=== PATIENT | male | born 1940 | race Caucasian/White ===

== ENCOUNTER 2018-05-17 18:03 | Inpatient (IN) ==
[2018-05-17] MEDS ORDERED: ASPIRIN CHEW 324 MG PO STA (18:14)
--- NOTE | 2018-05-17 18:39 | XRay Report ---
XR chest 1V portable CLINICAL HISTORY: Atypical chest pain COMPARISON STUDY: 03/01/2018 FINDINGS: The heart is enlarged. There are postsurgical changes of a midline sternotomy and valvular replacement. There is diffuse elevation of the interstitium, a finding consistent with mild congestiv e failure/fluid overload. There is no lobar consolidation.[ IMPRESSION: Cardiomegaly and radiographic evidence of mild chronic congestive failure/fluid overload. No evidence of lobar consolidation Electronically signed by: Jaylon Alvarez M.D. 05/17/2018 6:38 PM
[2018-05-17 18:42] LABS: Basophils # (auto) 0.05 K/uL (0-0.2); Basophils % (auto) 0.3 %; Eosinophils # (auto) 0.03 K/uL (0-0.5); Eosinophils % (auto) 0.2 %; Hematocrit (blood only) 37.7 % (42-52); Hemoglobin 12.2 g/dL (14.0-18.0); Immature Granulocytes # (auto) 0.05 K/uL (0.00-0.02); Immature Granulocytes % (auto) 0.3 %; Lymphocytes # (auto) 0.62 K/uL (1.2-3.4); Lymphocytes % (auto) 3.1 %; Mean Corpuscular Hgb Conc 32.4 g/dL (32-36); Mean Corpuscular Volume 87.9 fL (80-100); Mean Platelet Volume 11.4 fL (7.4-10.4); Monocytes # (auto) 0.78 K/uL (0.11-0.59); Monocytes % (auto) 3.9 %; Neutrophils # (auto) 18.27 K/uL (1.4-6.5); Neutrophils % (auto) 92.2 %; Platelet Count 172 K/uL (130-400); RDW Standard Deviation 51.2 fL (36.4-46.3); Red Blood Count 4.29 M/uL (4.7-6.1)
[2018-05-17] MEDS ORDERED: ACETAMINOPHEN 1,000 MG/100 ML VIAL IV STA (18:46)
[2018-05-17 18:55] LABS: Alanine Aminotransferase 19 U/L (12-78); Albumin Level 3.3 gm/dl (3.4-5.0); Aspartate Aminotransferase 18 U/L (15-37); BUN Creatinine Ratio 10.4 (10-20); Blood Urea Nitrogen 24 mg/dl (7-18); Calcium 8.2 mg/dl (8.5-10.1); Carbon Dioxide 28 mmol/L (21-32); Chloride 105 mmol/L (98-107); Est GFR (African American) 31.1; Est GFR (Non-African American) 26.8; Glucose 271 mg/dl (70-99); Potassium 3.8 mmol/L (3.5-5.1); Sodium 140 mmol/L (136-145)
[2018-05-17 19:00] LABS: Albumin Globulin Ratio 0.7 (0.9-2); Alkaline Phosphatase 108 U/L (45-117); Bilirubin,Total 0.8 mg/dl (0.2-1); Globulin 4.8 gm/dl (2.5-4.0); NT Pro B Type Natriuretic Pept 1178 pg/ml (0-1800); Total Protein 8.1 gm/dl (6.4-8.2); Troponin I 0.038 ng/ml (0-0.045)
[2018-05-17 20:03] LABS: Partial Thromboplastin Ratio 1.5; Partial Thromboplastin Time 40.4 Seconds (21.0-31.0); Prothrombin Time 35.6 Seconds (9.0-12.0)
[2018-05-17 20:06] LABS: Base Excess VBG 2.8 mEq/L; pH VBG 7.36 (7.36-7.41)
[2018-05-17] MEDS ORDERED: FUROSEMIDE 40 MG/4 ML VIAL IV STA (20:15)
[2018-05-17 20:16] LABS: INR 3.8 (0.9-1.1)
[2018-05-17] MEDS ORDERED: XOPENEX/ATROVENT 1.25mg/0.5MG NEB COMBO NEB STA (20:31)
[2018-05-17] MEDS ORDERED: IPRATROPIUM BROMIDE NEB SOLN 0.02% 2.5 ML VIAL INH STA (20:31)
[2018-05-17 20:38] LABS: Magnesium 1.6 mg/dl (1.8-2.4)
[2018-05-17] MEDS ORDERED: LEVALBUTEROL 1.25MG/0.5ML NEB INH STA (20:42)
[2018-05-17 20:46] LABS: Influenza A virus by PCR Neg for Influ A (Neg); Influenza B virus by PCR Neg for Influ B (Neg)
[2018-05-17] MEDS ORDERED: DOXYCYCLINE HYCLATE 100 MG in DEXTROSE 5% 100 ML IV STA (20:47)
--- NOTE | 2018-05-17 21:45 | CT Scan Report ---
CT head/brain wo con CLINICAL HISTORY: Acute change in mental status COMPARISON STUDY: Head CT dated 03/01/2018, MRI the brain dated 03/02/2018 TECHNIQUE: Axial CT of the brain is performed from the vertex to the skull base. IV contrast was not administered for this examination. A dose lowering technique was utilized adhering to the principles of ALARA. CT DOSE: 773.57 mGy.cm FINDINGS: No intra or extra-axial mass lesions are visualized. There is no CT evidence of acute cortical infarc tion. There is no evidence of midline shift. There is no acute hemorrhage. No calvarial fractures ar e visualized. There are patchy white matter hypodensities likely on a small vessel basis. There is an old left miquel etal lobe infarct There is no evidence of pathologic ventricular dilatation. There is no evidence of acute sinusitis IMPRESSION: 1. No change from the prior study. Old left MCA territory infarct. No acute intracranial findings. Electronically signed by: Jaylon Alvarez M.D. 05/17/2018 9:43 PM
[2018-05-17] MEDS ORDERED: ALBUMIN 25% 50 ML IV ONE (22:02)
--- NOTE | 2018-05-17 22:23 | History & Physical Report ---
Date of Service May 17, 2018 Assessment & Plan (1) Respiratory failure: ? Secondary to complicated bronchitis Severe sepsis SIRS plus lactic acid elevation plus hypoxemia plus ARF on CRI secondary to above Rule out RLE cellulitis/abscess as another source Encephalopathy secondary to illness chronic diastolic HF (EF 57%, TTE 2018), Equivocal volume status CAD/ PVD/CVA as per records hypertension, BP on the lower side hx aortic 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/TAA sp mechanical AVR/repair (2007)/PAF on Coumadin INR supratherapeutic chronic LBBB DM 2 insulin requiring, suboptimal control as of recent inpatient hemoglobin A1c of 8.5 last January 2018 chronic anemia secondary to CKD, hemoglobin at baseline past tobacco abuse Medical telemetry Follow-up ABG Wean off BiPAP Cultures, follow lactic acid Doxycycline, nebs, steroid course for complicated bronchitis CT R Leg RE right leg swelling rule out abscess Baseline UA, monitor renal function; renal ultrasound, Nephrology consult in a.m. if with worsening Monitor BP, appropriate to hold nighttime terazosin for now given borderline BP Basal insulin adjusted for n.p.o. status while on BiPAP, ISS BG goal 140-180, carb count coverage once patient eating DVT prophylaxis. Coumadin INR goal between 2.5-3.5 (Individualized goal given patient's old mechanical AVR as per [facility] outpatient anticoagulation pharmacist) Full code as per niece/contact family, Ms. Aleisha Toure. She requests updates from providers thru [phone]. Total critical time was 45 minutes. History of Present Illness Chief Complaint: Shortness of breath as per records Primary Care Provider: Alise Buck History obtained from patient, family, and records. Limited history from patient secondary to disorientation. 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 Recent confinement February 2018 for right leg weakness. Acute CVA ruled out. As per patient niece, patient noted to be short of breath and in respiratory distress yesterday by patient . Patient did not want to go to the ER initially. Worsening respiratory distress subsequently noted at home. O2 sats 80s upon arrival of EMS. Upon arrival at the ER patient received Lasix for possible CHF. BiPAP initiated at the ER. Patient unable to answer questions regarding chest pain, cough symptoms. 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 Allergies Allergy/AdvReac Type Severity Reaction Status Date / Time No Known Allergies Allergy Unverified 03/01/18 23:30 Home Medications Home Medications Medication Instructions Recorded Confirmed Type amiodarone 100 mg PO QAM 02/23/18 05/17/18 History amlodipine 2.5 mg PO QAM 02/23/18 05/17/18 History aspirin [Aspirin Low Dose] 40.5 mg PO AMHS 02/23/18 05/17/18 History atorvastatin 40 mg PO QAM 02/23/18 05/17/18 History docusate sodium 100 mg PO AMHS 02/23/18 05/17/18 History folic acid 1 mg PO QAM 02/23/18 05/17/18 History furosemide 80 mg PO QAM 02/23/18 05/17/18 History insulin asp prt-insulin aspart 26 units SUBCUT QAM 02/23/18 05/17/18 History [Novolog Mix 70-30FlexPen U-100] isosorbide mononitrate 90 mg PO QAM 02/23/18 05/17/18 History levothyroxine 50 mcg PO HS 02/23/18 05/17/18 History lisinopril 40 mg PO QAM 02/23/18 05/17/18 History metoprolol tartrate 25 mg PO AMHS 02/23/18 05/17/18 History nitroglycerin 0.4 mg SUBLINGUAL DIRECTED PRN 02/23/18 05/17/18 History terazosin 2 mg PO HS 02/24/18 05/17/18 History warfarin 1 dose PO DIRECTED 03/01/18 05/17/18 History insulin asp prt-insulin aspart 50 units SUBCUT QDD 05/18/18 05/18/18 History [Novolog Mix 70-30FlexPen U-100] Past Med/Surg History Medical History Coronary artery disease CVA (cerebral vascular accident) (Acute) CHF (congestive heart failure) (Chronic) HTN (hypertension) (Chronic) Family History Other No pertinent family history Social History marital status: Current Living Situation: Spouse Other Information That Helps Us Care for You: No Feels Safe at Home: Yes Safety Concerns: Feels Safe At This Time Smoking Status: Current some day smoker Tobacco Type: cigars Do You Dip or Chew Tobacco: No Second Hand Exposure: No Tobacco Cessation Education Requested by Patient: No Hx Alcohol Use: Yes Alcohol type: beer Alcohol Intake Frequency: holidays/ special occasions only Hx Substance Use: No Beliefs That Will Affect Care: None Communication Ability: Effective Review of Systems Could not be reliably obtained Physical Exam 2 Vital Signs (Past 24 Hours): Last Vital Signs Temp 39.2 C H 05/17/18 18:23 Pulse 73 05/17/18 21:46 Resp 18 05/17/18 21:46 BP 102/55 L 05/17/18 21:46 Pulse Ox 99 05/17/18 21:46 Physical Exam: GENERAL: Obese, disoriented, no respiratory distress SKIN: Pallor, warm HEENT: Pale palpebral conjunctivae, no ptosis, dry buccal mucosa, BiPAP in place NECK : Supple, short, no tenderness CHEST : Decreased breath sounds, expiratory wheezes, healed sternal scar, no tenderness HEART : RRR, mechanical murmur ABDOMEN: Some distention, nontender EXTREMITIES : RLE induration, minimal tenderness; no other conspicuous deformities noted NEUROLOGIC : Disoriented but coherent, no facial asymmetry, gait and stance not assessed Results & Data Laboratory Results Laboratory Results WBC 19.80 K/uL (4.8-10.8) H 05/17/18 18:20 RBC 4.29 M/uL (4.7-6.1) L 05/17/18 18:20 Hgb 12.2 g/dL (14.0-18.0) L 05/17/18 18:20 Hct 37.7 % (42-52) L 05/17/18 18:20 MCV 87.9 fL (80-100) 05/17/18 18:20 MCH 28.4 pg (25-34) 05/17/18 18:20 MCHC 32.4 g/dL (32-36) 05/17/18 18:20 RDW Std Deviation 51.2 fL (36.4-46.3) H 05/17/18 18:20 RDW Coeff of [place] 16.0 % (11.5-14.5) H 05/17/18 18:20 Plt Count 172 K/uL (130-400) 05/17/18 18:20 MPV 11.4 fL (7.4-10.4) H 05/17/18 18:20 Immature Gran % (Auto) 0.3 % 05/17/18 18:20 Neut % (Auto) 92.2 % 05/17/18 18:20 Lymph % (Auto) 3.1 % 05/17/18 18:20 [place] % (Auto) 3.9 % 05/17/18 18:20 Eos % (Auto) 0.2 % 05/17/18 18:20 Baso % (Auto) 0.3 % 05/17/18 18:20 Immature Gran # (Auto) 0.05 K/uL (0.00-0.02) H 05/17/18 18:20 Neut # (Auto) 18.27 K/uL (1.4-6.5) H 05/17/18 18:20 Lymph # (Auto) 0.62 K/uL (1.2-3.4) L 05/17/18 18:20 [place] # (Auto) 0.78 K/uL (0.11-0.59) H 05/17/18 18:20 Eos # (Auto) 0.03 K/uL (0-0.5) 05/17/18 18:20 Baso # (Auto) 0.05 K/uL (0-0.2) 05/17/18 18:20 PT 35.6 Seconds (9.0-12.0) H 05/17/18 19:29 INR 3.8 (0.9-1.1) H 05/17/18 19:29 APTT 40.4 Seconds (21.0-31.0) H 05/17/18 19:29 PTT Ratio 1.5 05/17/18 19:29 VBG pH 7.36 (7.36-7.41) 05/17/18 19:53 VBG pCO2 53 mmHg (38-50) H 05/17/18 19:53 VBG pO2 35 mmHg 05/17/18 19:53 VBG HCO3 29 mmol/L 05/17/18 19:53 VBG O2 Saturation 64.0 % 05/17/18 19:53 VBG Base Excess 2.8 mEq/L 05/17/18 19:53 Barometric Pressure 733.6 mm/Hg 05/17/18 19:53 Sodium 140 mmol/L (136-145) 05/17/18 18:20 Potassium 3.8 mmol/L (3.5-5.1) 05/17/18 18:20 Chloride 105 mmol/L (98-107) 05/17/18 18:20 Carbon Dioxide 28 mmol/L (21-32) 05/17/18 18:20 Anion Gap 7.0 (3-11) 05/17/18 18:20 BUN 24 mg/dl (7-18) H 05/17/18 18:20 Creatinine 2.27 mg/dl (0.6-1.4) H 05/17/18 18:20 Est Cr Clr Drug Dosing Not Reportable 05/17/18 18:20 Est GFR ( Amer) 31.1 05/17/18 18:20 Est GFR (Non-Af Amer) 26.8 05/17/18 18:20 BUN/Creatinine Ratio 10.4 (10-20) 05/17/18 18:20 Glucose 271 mg/dl (70-99) H 05/17/18 18:20 Lactate 2.8 mmol/L (0.4-2.0) H* 05/17/18 19:53 Calcium 8.2 mg/dl (8.5-10.1) L 05/17/18 18:20 Magnesium 1.6 mg/dl (1.8-2.4) L 05/17/18 18:20 Total Bilirubin 0.8 mg/dl (0.2-1) 05/17/18 18:20 AST 18 U/L (15-37) 05/17/18 18:20 ALT 19 U/L (12-78) 05/17/18 18:20 Alkaline Phosphatase 108 U/L (45-117) 05/17/18 18:20 Troponin I 0.038 ng/ml (0-0.045) 05/17/18 18:20 NT-Pro-B Natriuret Pep 1178 pg/ml (0-1800) 05/17/18 18:20 Total Protein 8.1 gm/dl (6.4-8.2) 05/17/18 18:20 Albumin 3.3 gm/dl (3.4-5.0) L 05/17/18 18:20 Globulin 4.8 gm/dl (2.5-4.0) H 05/17/18 18:20 Albumin/Globulin Ratio 0.7 (0.9-2) L 05/17/18 18:20 Lipase 93 U/L (73-393) 05/17/18 18:20 Influenza Type A (PCR) Neg for Influ A (Neg) 05/17/18 20:00 Influenza Type B (PCR) Neg for Influ B (Neg) 05/17/18 20:00 Diagnostic Findings Chest x-ray: Cardiomegaly and radiographic evidence of mild chronic congestive failure/fluid overload. No evidence of lobar consolidation CT head initial read old left MCA infarct EKG as per my interpretation rate 90, NSR, first-degree block, LAD, LBBB
[2018-05-17] MEDS ORDERED: ACETAMINOPHEN 65 ML IV ONE (22:27)
--- NOTE | 2018-05-17 22:36 | Emergency Department Note ---
Entered by Jay Garcia acting as a scribe for History of Present Illness General Chief complaint: Shortness of Breath/Dyspnea Stated complaint: SOB Time Seen by Provider: 05/17/18 18:04 Source: EMS History of Present Illness Provider complaint: Shortness of breath Onset (ago): hour(s) 10 Location: chest Radiation: non-radiation Pain Consistency: + constant Relieved By: + none Exacerbated By: + none Associated symptoms: + shortness of breath; no chest pain The patient is a 77 year old male who presents to the Emergency Room with complaints of constant shortness of breath that was first noticed today around 0800, per EMS. The patient did not complain of any chest pain, but he does have an extensive cardiac history including coronary artery disease, coronary stents , and atrial fibrillation. He is on Coumadin for a history of stroke. He is also on Losartan for hypertensive, Metoprolol for his Afib, and a daily Aspirin. When EMS first arrived he was in the low 80s on room air and his respiratory rate was in the 50s. His blood pressure was around 220 systolic, before he received 5 Nitroglycerin 0.4 mg SL. His last pressure taken before arrival was 160 systolic and his last respiratory rate was in the 30s. The patient has no respiratory history, but he also has a history of TIAs and a bundle branch block. The patient is a DNR and his paperwork states no intubation , no IV fluid, no antibiotics. Home Medications Home Medications Medication Instructions Recorded Confirmed Type amiodarone 100 mg PO QAM 02/23/18 05/17/18 History amlodipine 2.5 mg PO QAM 02/23/18 05/17/18 History aspirin [Aspirin Low Dose] 40.5 mg PO AMHS 02/23/18 05/17/18 History atorvastatin 40 mg PO QAM 02/23/18 05/17/18 History docusate sodium 100 mg PO AMHS 02/23/18 05/17/18 History folic acid 1 mg PO QAM 02/23/18 05/17/18 History furosemide 80 mg PO QAM 02/23/18 05/17/18 History insulin asp prt-insulin aspart 26 units SUBCUT QAM 02/23/18 05/17/18 History [Novolog Mix 70-30FlexPen U-100] insulin aspart U-100 [Novolog 50 units SUBCUT QPM 02/23/18 05/17/18 History Flexpen U-100 Insulin] isosorbide mononitrate 90 mg PO QAM 02/23/18 05/17/18 History levothyroxine 50 mcg PO HS 02/23/18 05/17/18 History lisinopril 40 mg PO QAM 02/23/18 05/17/18 History metoprolol tartrate 25 mg PO AMHS 02/23/18 05/17/18 History nitroglycerin 0.4 mg SUBLINGUAL DIRECTED PRN 02/23/18 05/17/18 History terazosin 2 mg PO HS 02/24/18 05/17/18 History warfarin 1 dose PO DIRECTED 03/01/18 05/17/18 History Allergies Allergy/AdvReac Type Severity Reaction Status Date / Time No Known Allergies Allergy Unverified 03/01/18 23:30 Past Med/Surg History Medical History Coronary artery disease CVA (cerebral vascular accident) (Acute) CHF (congestive heart failure) (Chronic) HTN (hypertension) (Chronic) Family History Other No pertinent family history Social History Current Living Situation: Spouse Feels Safe at Home: Yes Smoking Status: Unknown if ever smoked Hx Alcohol Use: Yes Alcohol type: beer Alcohol Intake Frequency: holidays/ special occasions only Hx Substance Use: No Beliefs That Will Affect Care: None Preferred Language: Arabic Review of Systems See HPI for pertinent positives & negatives. and A total of 10 systems reviewed and were otherwise negative Physical Exam Vital Signs Vital Signs - 24 hr 05/17/18 18:15 05/17/18 18:23 05/17/18 20:01 Temperature 39.2 C H Temperature Source Axillary Sepsis Recent Fever Within 48 Hours Yes Sepsis New/Unexplained Change in Mental Status No Sepsis Action Taken by Nursing Physician Notified Pulse Rate 90 93 H Pulse Rate [Left Finger] 73 Respiratory Rate 28 H 34 H 33 H Respiratory Effort / Characteristics Spontaneous Labored Short of Breath Labored Respiratory Depth Normal Respiratory Pattern Blood Pressure 143/87 H Blood Pressure [Left Arm] 140/71 Blood Pressure Mean 105 Blood Pressure Mean [Left Arm] 94 Pulse Oximetry 94 97 100 Oxygen Delivery Method BiPAP BiPAP Fraction of Inspired Oxygen 50 05/17/18 20:51 05/17/18 20:52 05/17/18 21:46 Temperature Temperature Source Sepsis Recent Fever Within 48 Hours Sepsis New/Unexplained Change in Mental Status Sepsis Action Taken by Nursing Pulse Rate 75 Pulse Rate [Left Finger] 74 73 Respiratory Rate 28 H 29 H 18 Respiratory Effort / Characteristics Non-Labored Spontaneous Spontaneous Respiratory Depth Normal Respiratory Pattern Regular Blood Pressure Blood Pressure [Left Arm] 102/55 L Blood Pressure Mean Blood Pressure Mean [Left Arm] 70 Pulse Oximetry 97 97 99 Oxygen Delivery Method BiPAP BiPAP Fraction of Inspired Oxygen 50 50 GENERAL: He is under respiratory distress on BiPAP. HENT: Exam performed. - Head: Normocephalic and atraumatic. - Right Ear: External ear normal. No mastoid tenderness. - Left Ear: External ear normal. No mastoid tenderness. - Mouth/Throat: The oropharynx is clear and moist. No trismus in the jaw. No dental abscesses or uvula swelling. No oropharyngeal exudate or tonsillar abscesses. EYES: Conjunctivae and EOM are normal. Pupils are equal, round, and reactive to light. Right eye exhibits no discharge. Left eye exhibits no discharge. No scleral icterus. NECK: Normal range of motion. Neck supple. No JVD present. No spinous process tenderness present. No carotid bruit present. No rigidity. No tracheal deviation and normal range of motion present. No Brudzinski's sign and no Kernig 's sign noted. CV: Normal rate, regular rhythm, normal heart sounds and intact distal pulses. There is no peripheral edema. Palpable radial pulses bue. PULM/CHEST: He does have rales bilaterally. - Chest Wall: He exhibits no tenderness. ABD: The abdomen is soft. Bowel sounds are normal. He has no distension. No mass is present. There is no tenderness. There is no rebound, no guarding, no Flower's sign and no tenderness at McBurney's point. Rovsig negative. MUSC/SKEL: Normal range of motion. There is no peripheral tenderness or deformity. He does have 3+ pitting edema bilaterally to the lower extremities. LYMPH: No cervical adenopathy. NEURO: He is alert and oriented to person, place, and time. He has normal strength. No cranial nerve deficit or sensory deficit. SKIN: Skin is warm and dry. He is not diaphoretic. PSYCH: He has a normal mood and affect. Behavior is normal. Judgment and thought content normal. Course 1804: Past medical records reviewed. The patient was evaluated in room B09, and a complete history and physical examination were performed. Patient was immediately seen on arrival. EMS had the patient on CPAP. Patient was continued on BiPAP in the emergency department immediately. IV access was obtained and labs were drawn. Patient's blood pressure is stable at this time, is no longer hypertensive after receiving the 5 sublingual nitro per EMS and as well as being on the positive pressure ventilation. We will keep the patient on positive pressure ventilation and continue to monitor the patient. He is febrile here in the emergency department. Tylenol was given orally. Aspirin is also given. 2024: The patient's labs show leukocytes 19.8, INR 3.8, Creatinine 2.27 which is slightly elevated from his baseline of 1.8, and lactic acid of 2.8. His chest Xray showed findings consistent with fluid overload and pulmonary edema. His BP was stable on repeat showing 140/71 and has been stable for the entire time in the ED. The patient reports he is feeling better on BiPAP, he is alert and under no respiratory distress. Given his history of being extremely hypertensive, sudden onset of respiratory distress, his physical exam, and response to the sublingual Nitro and BiPAP, the patient is suffering from pulmonary edema. There is also possibility that an infiltrate is present but it cannot be visualized on the chest Xray because of the pulmonary edema. The patient has DNR paperwork at beside that strictly states he refuses antibiotic use. Antibiotics will be held at this time. I spoke to Dr. Elayne Schrader who is going to administer 40mg of Lasix and accept the patient. Consultations Consultation #1: I spoke to Dr. Elayne Schrader about the patient 's case and he is going to accept him for further evaluation. Time: 20:25 Administered Medications Doxycycline Hyclate 100 mg/ (Dextrose) 110 mls @ 50 mls/hr IV NOW STA Stop: 05/17/18 22:58 Last Admin: 05/17/18 21:53 Dose: 50 mls/hr Discontinued Medications Aspirin (Aspirin) 324 mg PO NOW STA Stop: 05/17/18 18:15 Last Admin: 05/17/18 18:25 Dose: 324 mg Furosemide (Lasix) 40 mg IV NOW STA Stop: 05/17/18 20:16 Last Admin: 05/17/18 20:23 Dose: 40 mg Acetaminophen (Ofirmev) 1,000 mg in 100 mls @ 400 mls/hr IV NOW STA Stop: 05/17/18 19:00 Last Infusion: 05/17/18 20:26 Dose: 0 mls/hr Admin: 05/17/18 20:11 Dose: 400 mls/hr Ipratropium Winston (Atrovent 0.02% 0.5mg/2.5ml) 0.5 mg INH NOW STA Stop: 05/17/18 20:32 Last Admin: 05/17/18 20:48 Dose: 0.5 mg Levalbuterol HCl (Xopenex 1.25mg/0.5ml Neb) 1.25 mg INH NOW STA Stop: 05/17/18 20:43 Last Admin: 05/17/18 20:49 Dose: 1.25 mg Methylprednisolone (Solumedrol) Confirm Administered Dose 40 mg .ROUTE .STK-MED ONE Stop: 05/17/18 20:35 Last Admin: 05/17/18 20:36 Dose: 20 mg Methylprednisolone (Solumedrol) 20 mg IV NOW STA Stop: 05/17/18 20:50 Last Admin: 05/17/18 21:54 Dose: Not Given Medical Decision Making Medical Records Attestation: I reviewed the patient's medical records. Home Medications Current Medication List: was personally reviewed by me Laboratory Data Attestation: I reviewed the patient's lab results. Result diagrams: 05/17/18 18:20 05/17/18 18:20 Lab Results 05/17/18 05/17/18 05/17/18 Range/Units 18:20 18:20 18:20 WBC 19.80 H (4.8-10.8) K/uL RBC 4.29 L (4.7-6.1) M/uL Hgb 12.2 L (14.0-18.0) g/dL Hct 37.7 L (42-52) % MCV 87.9 (80-100) fL MCH 28.4 (25-34) pg MCHC 32.4 (32-36) g/dL RDW Std Deviation 51.2 H (36.4-46.3) fL RDW Coeff of Elizabeth 16.0 H (11.5-14.5) % Plt Count 172 (130-400) K/uL MPV 11.4 H (7.4-10.4) fL Immature Gran % (Auto) 0.3 % Neut % (Auto) 92.2 % Lymph % (Auto) 3.1 % [place] % (Auto) 3.9 % Eos % (Auto) 0.2 % Baso % (Auto) 0.3 % Immature Gran # (Auto) 0.05 H (0.00-0.02) K/uL Neut # (Auto) 18.27 H (1.4-6.5) K/uL Lymph # (Auto) 0.62 L (1.2-3.4) K/uL [place] # (Auto) 0.78 H (0.11-0.59) K/uL Eos # (Auto) 0.03 (0-0.5) K/uL Baso # (Auto) 0.05 (0-0.2) K/uL PT Cancelled INR Cancelled APTT Cancelled PTT Ratio Cancelled VBG pH (7.36-7.41) VBG pCO2 (38-50) mmHg VBG pO2 mmHg VBG HCO3 mmol/L VBG O2 Saturation % VBG Base Excess mEq/L Barometric Pressure mm/Hg Sodium 140 (136-145) mmol/L Potassium 3.8 (3.5-5.1) mmol/L Chloride 105 (98-107) mmol/L Carbon Dioxide 28 (21-32) mmol/L Anion Gap 7.0 (3-11) BUN 24 H (7-18) mg/dl Creatinine 2.27 H (0.6-1.4) mg/dl Est Cr Clr Drug Dosing Not Reportable Est GFR ( Amer) 31.1 Est GFR (Non-Af Amer) 26.8 BUN/Creatinine Ratio 10.4 (10-20) Glucose 271 H (70-99) mg/dl Lactate (0.4-2.0) mmol/L Calcium 8.2 L (8.5-10.1) mg/dl Magnesium 1.6 L (1.8-2.4) mg/dl Total Bilirubin 0.8 (0.2-1) mg/dl AST 18 (15-37) U/L ALT 19 (12-78) U/L Alkaline Phosphatase 108 (45-117) U/L Troponin I 0.038 (0-0.045) ng/ml NT-Pro-B Natriuret Pep 1178 (0-1800) pg/ml Total Protein 8.1 (6.4-8.2) gm/dl Albumin 3.3 L (3.4-5.0) gm/dl Globulin 4.8 H (2.5-4.0) gm/dl Albumin/Globulin Ratio 0.7 L (0.9-2) Lipase 93 (73-393) U/L Influenza Type A (PCR) (Neg) Influenza Type B (PCR) (Neg) 05/17/18 05/17/18 05/17/18 Range/Units 19:29 19:53 19:53 WBC (4.8-10.8) K/uL RBC (4.7-6.1) M/uL Hgb (14.0-18.0) g/dL Hct (42-52) % MCV (80-100) fL MCH (25-34) pg MCHC (32-36) g/dL RDW Std Deviation (36.4-46.3) fL RDW Coeff of Elizabeth (11.5-14.5) % Plt Count (130-400) K/uL MPV (7.4-10.4) fL Immature Gran % (Auto) % Neut % (Auto) % Lymph % (Auto) % [place] % (Auto) % Eos % (Auto) % Baso % (Auto) % Immature Gran # (Auto) (0.00-0.02) K/uL Neut # (Auto) (1.4-6.5) K/uL Lymph # (Auto) (1.2-3.4) K/uL [place] # (Auto) (0.11-0.59) K/uL Eos # (Auto) (0-0.5) K/uL Baso # (Auto) (0-0.2) K/uL PT 35.6 H INR 3.8 H APTT 40.4 H PTT Ratio 1.5 VBG pH 7.36 (7.36-7.41) VBG pCO2 53 H (38-50) mmHg VBG pO2 35 mmHg VBG HCO3 29 mmol/L VBG O2 Saturation 64.0 % VBG Base Excess 2.8 mEq/L Barometric Pressure 733.6 mm/Hg Sodium (136-145) mmol/L Potassium (3.5-5.1) mmol/L Chloride (98-107) mmol/L Carbon Dioxide (21-32) mmol/L Anion Gap (3-11) BUN (7-18) mg/dl Creatinine (0.6-1.4) mg/dl Est Cr Clr Drug Dosing Est GFR ( Amer) Est GFR (Non-Af Amer) BUN/Creatinine Ratio (10-20) Glucose (70-99) mg/dl Lactate 2.8 H* (0.4-2.0) mmol/L Calcium (8.5-10.1) mg/dl Magnesium (1.8-2.4) mg/dl Total Bilirubin (0.2-1) mg/dl AST (15-37) U/L ALT (12-78) U/L Alkaline Phosphatase (45-117) U/L Troponin I (0-0.045) ng/ml NT-Pro-B Natriuret Pep (0-1800) pg/ml Total Protein (6.4-8.2) gm/dl Albumin (3.4-5.0) gm/dl Globulin (2.5-4.0) gm/dl Albumin/Globulin Ratio (0.9-2) Lipase (73-393) U/L Influenza Type A (PCR) (Neg) Influenza Type B (PCR) (Neg) 05/17/18 Range/Units 20:00 WBC (4.8-10.8) K/uL RBC (4.7-6.1) M/uL Hgb (14.0-18.0) g/dL Hct (42-52) % MCV (80-100) fL MCH (25-34) pg MCHC (32-36) g/dL RDW Std Deviation (36.4-46.3) fL RDW Coeff of Elizabeth (11.5-14.5) % Plt Count (130-400) K/uL MPV (7.4-10.4) fL Immature Gran % (Auto) % Neut % (Auto) % Lymph % (Auto) % [place] % (Auto) % Eos % (Auto) % Baso % (Auto) % Immature Gran # (Auto) (0.00-0.02) K/uL Neut # (Auto) (1.4-6.5) K/uL Lymph # (Auto) (1.2-3.4) K/uL [place] # (Auto) (0.11-0.59) K/uL Eos # (Auto) (0-0.5) K/uL Baso # (Auto) (0-0.2) K/uL PT INR APTT PTT Ratio VBG pH (7.36-7.41) VBG pCO2 (38-50) mmHg VBG pO2 mmHg VBG HCO3 mmol/L VBG O2 Saturation % VBG Base Excess mEq/L Barometric Pressure mm/Hg Sodium (136-145) mmol/L Potassium (3.5-5.1) mmol/L Chloride (98-107) mmol/L Carbon Dioxide (21-32) mmol/L Anion Gap (3-11) BUN (7-18) mg/dl Creatinine (0.6-1.4) mg/dl Est Cr Clr Drug Dosing Est GFR ( Amer) Est GFR (Non-Af Amer) BUN/Creatinine Ratio (10-20) Glucose (70-99) mg/dl Lactate (0.4-2.0) mmol/L Calcium (8.5-10.1) mg/dl Magnesium (1.8-2.4) mg/dl Total Bilirubin (0.2-1) mg/dl AST (15-37) U/L ALT (12-78) U/L Alkaline Phosphatase (45-117) U/L Troponin I (0-0.045) ng/ml NT-Pro-B Natriuret Pep (0-1800) pg/ml Total Protein (6.4-8.2) gm/dl Albumin (3.4-5.0) gm/dl Globulin (2.5-4.0) gm/dl Albumin/Globulin Ratio (0.9-2) Lipase (73-393) U/L Influenza Type A (PCR) Neg for Influ A (Neg) Influenza Type B (PCR) Neg for Influ B (Neg) Imaging Data Radiologist's Impression: Radiology results as stated below per my review and the radiologist's interpretation: XR chest 1V portable CLINICAL HISTORY: Atypical chest pain COMPARISON STUDY: 03/01/2018 FINDINGS: The heart is enlarged. There are postsurgical changes of a midline sternotomy and valvular replacement. There is diffuse elevation of the interstitium, a finding consistent with mild congestive failure/fluid overload. There is no lobar consolidation.[ IMPRESSION: Cardiomegaly and radiographic evidence of mild chronic congestive failure/fluid overload. No evidence of lobar consolidation Electronically signed by: Jaylon Alvarez M.D. 05/17/2018 6:38 PM ECG Data Attestation: I personally reviewed and interpreted this ECG as follows: Indication: SOB/dyspnea Rate (beats per minute): 91 Rhythm: sinus rhythm Findings: + other (MN 224, QRS 166, QTC 523, Sgarbossa ) and + LBBB Comparison ECG Date: from (June 2017) Change: no significant change Blood Pressure Blood Pressure Findings: Elevated blood pressure Blood Pressure Disposition: further management by hospitalist SHEFALI Nicolas 1804: Past medical records reviewed. The patient was evaluated in room B09, and a complete history and physical examination were performed. Patient was immediately seen on arrival. EMS had the patient on CPAP. Patient was continued on BiPAP in the emergency department immediately. IV access was obtained and labs were drawn. Patient's blood pressure is stable at this time, is no longer hypertensive after receiving the 5 sublingual nitro per EMS and as well as being on the positive pressure ventilation. We will keep the patient on positive pressure ventilation and continue to monitor the patient. He is febrile here in the emergency department. Tylenol was given orally. Aspirin is also given. 2024: The patient's labs show leukocytes 19.8, INR 3.8, Creatinine 2.27 which is slightly elevated from his baseline of 1.8, and lactic acid of 2.8. His chest Xray showed findings consistent with fluid overload and pulmonary edema. His BP was stable on repeat showing 140/71 and has been stable for the entire time in the ED. The patient reports he is feeling better on BiPAP, he is alert and under no respiratory distress. Given his history of being extremely hypertensive, sudden onset of respiratory distress, his physical exam, and response to the sublingual Nitro and BiPAP, the patient is suffering from pulmonary edema. There is also possibility that an infiltrate is present but it cannot be visualized on the chest Xray because of the pulmonary edema. The patient has DNR paperwork at [facility] that strictly states he refuses antibiotic use. Antibiotics will be held at this time. I spoke to Dr. Elayne Huntley Hospitalist who is going to administer 40mg of Lasix and accept the patient. Impression & Plan Hypoxia, CHF exacerbation, Pulmonary edema Critical Care Time I have personally spent greater than 52 minutes of critical care time in the direct management of this patient. This includes bedside care, interpretation of diagnostic studies, and testing, discussion with consultants, patient, and family members, and other required patient management activities. This 52 minutes is in excess of all separately billable procedures. Critical Care Time: Yes Total Critical Care Time: 52 Discharge Plan Visit Data Chief Complaint: Shortness of Breath/Dyspnea Stated Complaint: SOB ED Provider: Denton Flores Discharge Problem: Hypoxia, CHF exacerbation, Pulmonary edema Patient Disposition: Being Evaluated by Hospitalist Forms Stand Alone Forms: [facility] Prescriptions Prescriptions: No Action furosemide 40 mg Tablet 80 mg PO QAM RF: 0 atorvastatin 40 mg Tablet 40 mg PO QAM RF: 0 amiodarone 200 mg Tablet 100 mg PO QAM RF: 0 amlodipine 5 mg Tablet 2.5 mg PO QAM RF: 0 aspirin [Aspirin Low Dose] 81 mg Tablet,Delayed Release (Dr/Ec) 40.5 mg PO AMHS RF: 0 isosorbide mononitrate 60 mg Tablet Extended Release 24 Hr 90 mg PO QAM RF: 0 levothyroxine 50 mcg Tablet 50 mcg PO HS RF: 0 metoprolol tartrate 50 mg Tablet 25 mg PO AMHS RF: 0 nitroglycerin 0.4 mg Tablet, Sublingual 0.4 mg Sublingual DIRECTED PRN (Reason: Chest Pain) RF: 0 docusate sodium 100 mg Capsule 100 mg PO AMHS RF: 0 folic acid 1 mg Tablet 1 mg PO QAM RF: 0 lisinopril 40 mg Tablet 40 mg PO QAM RF: 0 insulin asp prt-insulin aspart [Novolog Mix 70-30FlexPen U-100] 100 unit/mL ( 70-30) Insulin Pen 26 units SUBCUT QAM RF: 0 insulin aspart U-100 [Novolog Flexpen U-100 Insulin] 100 unit/mL Insulin Pen 50 units SUBCUT QPM RF: 0 terazosin 2 mg Capsule 2 mg PO HS RF: 0 warfarin 2.5 mg tablet 1 dose PO DIRECTED RF: 0 Referrals Referrals: Alise Buck MD [Primary Care Provider] - The scribe's documentation has been prepared under my direction and personally reviewed by me in its entirety. I confirm that the note above accurately reflects all work, treatment, procedures, and medical decision making performed by me.
[2018-05-18] MEDS ORDERED: ACETAMINOPHEN 325 MG TAB PO PRN (00:53)
[2018-05-18] MEDS ORDERED: CARBOHYDRATES FOR HYPOGLYCEMIA PO PRN (00:53)
[2018-05-18] MEDS ORDERED: GLUCOSE 40% GEL 15 GM TUBE PO PRN (00:53)
[2018-05-18] MEDS ORDERED: GLUCAGON FOR INJ 1 MG VIAL SQ PRN (00:53)
[2018-05-18] MEDS ORDERED: PROCHLORPERAZINE 5 MG in SYRINGE 4 ML IV PRN (00:53)
[2018-05-18] MEDS ORDERED: TRAMADOL HCL 50 MG TABLET PO PRN (00:53)
[2018-05-18] MEDS ORDERED: MAGNESIUM SULFATE / D5W 1 GM/100 ML BAG IV ONE (00:53)
[2018-05-18] MEDS ORDERED: DEXTROSE 50% 50 ML SYRINGE IV PRN (00:53)
[2018-05-18] MEDS ORDERED: GLUCOSE 10 TABS/TUBE PO PRN (00:53)
[2018-05-18 01:19] LABS: HCO3 ABG 27 mmol/L (19-24); Oxygen Saturation ABG 96.4 % (90-95); PCO2 ABG 47 mmHg (35-46); PO2 ABG 88 mm/Hg (80-95); pH ABG 7.38 (7.35-7.45)
[2018-05-18 01:21] LABS: Allen Test POS (Pos)
[2018-05-18] MEDS ORDERED: XOPENEX/ATROVENT 1.25mg/0.5MG NEB COMBO NEB SCH (02:00)
[2018-05-18] MEDS: IPRATROPIUM BROMIDE NEB SOLN 0.02% 2.5 ML VIAL INH SCH ×4 (02:04→19:07)
[2018-05-18] MEDS: LEVALBUTEROL 1.25MG/0.5ML NEB INH SCH ×4 (02:06→19:07)
[2018-05-18] MEDS ORDERED: INSULIN GLARGINE SOLOSTAR 100 UNITS/ML 3 ML PEN SQ STA (02:13)
[2018-05-18] MEDS: INSULIN ASPART 100 UNITS/ML 3 ML PEN SC SCH ×5 (02:31→21:46)
[2018-05-18] MEDS ORDERED: MICONAZOLE NITRATE POWDER 43 GM EXT PRN (02:52)
[2018-05-18 04:24] LABS: Appearance Urine Clear (Clear); Bacteria Urine Automated Negative (Negative); Bilirubin Urine Negative (Negative); Cast Urine Automated 0 /lpf (0-5); Color Urine Yellow; Epithelial Cell Urine Auto 0-5 /lpf (0-5); Glucose Urine UA 3+ (Negative); Ketones Urine Negative (Negative); Leukocyte Esterase Urine Negative (Negative); Nitrite Urine Negative (Negative); Protein Urine Negative (Negative); Specific Gravity Urine 1.014 (1.000-1.030); Urobilinogen Urine Negative (Negative); WBC Urine Automated 0 /hpf (0-5); pH Urine 5.5 (4.5-7.5)
[2018-05-18 06:56] LABS: Hematocrit (blood only) 34.4 % (42-52); Hemoglobin 10.9 g/dL (14.0-18.0); Mean Corpuscular Hgb Conc 31.7 g/dL (32-36); Mean Platelet Volume 11.5 fL (7.4-10.4); Platelet Count 157 K/uL (130-400); RDW Coefficient of Variation 16.4 % (11.5-14.5); RDW Standard Deviation 52.4 fL (36.4-46.3); Red Blood Count 3.91 M/uL (4.7-6.1)
[2018-05-18 07:08] LABS: INR 3.3 (0.9-1.1); Prothrombin Time 31.3 Seconds (9.0-12.0)
--- NOTE | 2018-05-18 07:08 | CT Scan Report ---
RIGHT LOWER LEG CT CT DOSE: 471.53 mGy.cm HISTORY: R lower leg swelling ro abcess TECHNIQUE: Multiaxial CT images of the right lower leg were performed and reformatted in the sagittal and coronal plane without the use of contrast. A dose lowering technique was utilized adhering to t he principles of ALARA. COMPARISON: Right lower leg 02/24/2018. FINDINGS: Small joint effusion which has improved. Diffuse skin thickening and subcutaneous edema thr oughout the right lower leg. This is not significantly changed. No loculated fluid collections to sug gest an abscess. Complete fatty atrophy of the tibialis anterior muscle, unchanged. Moderate calcifie d plaque within the visualized arterial structures. No abnormal fluid or edema within the deep soft t issues. Degenerative changes again noted within the knee. No fractures or dislocation within the tibi a or fibula. No cortical disruption to suggest osteomyelitis. IMPRESSION: 1. Overall, no significant change compared the prior study. 2. Skin thickening and diffuse subcutaneous edema throughout the lower leg. This could be due to a di ffuse edematous state, venous stasis, or cellulitis. Clinical correlation recommended. 3. No loculated fluid collections to suggest an abscess. 4. Additional findings as described above. Electronically signed by: Farhat Vitale M.D. 05/18/2018 7:06 AM
[2018-05-18 07:28] LABS: Basophils # (auto) 0.02 K/uL (0-0.2); Basophils % (auto) 0.1 %; Immature Granulocytes # (auto) 0.07 K/uL (0.00-0.02); Immature Granulocytes % (auto) 0.3 %; Lymphocytes % (auto) 3.7 %; Monocytes # (auto) 0.57 K/uL (0.11-0.59); Monocytes % (auto) 2.6 %; Neutrophils # (auto) 20.44 K/uL (1.4-6.5); Neutrophils % (auto) 93.3 %
[2018-05-18 07:38] LABS: BUN Creatinine Ratio 12.1 (10-20); Calcium 8.1 mg/dl (8.5-10.1); Creatinine Clr Calc Pharmacy 35.4 ml/min; Est GFR (African American) 28.6; Est GFR (Non-African American) 24.7; Magnesium 2.1 mg/dl (1.8-2.4)
[2018-05-18] MEDS: INSULIN GLARGINE SOLOSTAR 100 UNITS/ML 3 ML PEN SQ SCH (08:42)
[2018-05-18] MEDS: ISOSORBIDE MONO EXTENDED REL 30 MG TABCR PO SCH (08:45)
[2018-05-18] MEDS: AMIODARONE 200 MG TAB PO SCH (08:46)
[2018-05-18] MEDS: ATORVASTATIN 40 MG TAB PO SCH (08:46)
[2018-05-18] MEDS: AMLODIPINE BESYLATE 5 MG TAB PO SCH (08:48)
[2018-05-18] MEDS: DOCUSATE SODIUM 100 MG CAP PO SCH ×2 (08:49→20:07)
[2018-05-18] MEDS: FOLIC ACID 1 MG TAB PO SCH (08:49)
[2018-05-18] MEDS: METOPROLOL TARTRATE 25 MG TAB PO SCH ×2 (08:49→20:07)
[2018-05-18] MEDS ORDERED: predniSONE 20 MG TAB PO SCH (09:00)
[2018-05-18] MEDS: DOXYCYCLINE HYCLATE 100 MG in DEXTROSE 5% 100 ML IV SCH ×2 (11:17→21:47)
[2018-05-18] MEDS: WARFARIN SOD 2 MG TAB PO SCH (16:29)
--- NOTE | 2018-05-18 19:36 | Hospitalist Progress Note ---
Date of Service May 18, 2018 Assessment & Plan (1) Respiratory failure: 77 year old male who presented to the Emergency Room with shortness of breath -admission Cardiomegaly and radiographic evidence of mild chronic congestive failure/fluid overload. No evidence of lobar consolidation -initially on BIPAP -currently on nasal cannula -respiratory symptoms may be from bronchitis -appears to be improving with nebulizer treatments, continue initial metabolic encephalopathy on admission appears to have resolved initial presentation concerning for sepsis given elevated white blood cell counts and lactic acidosis of 2.8 but has been hemodynamically stable blood cultures are pending lactic acid has resolved on doxycycline for possible right lower extremity cellulitis possibly that lactic acidosis partly from hyperglycemia, glucose above 400 on admission 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 current use of insulin suboptimal control as of recent inpatient hemoglobin A1c of 8.5 last January 2018 hyperglycemia resolving with subcutanous Lantus and sliding scale insulin, currently in the 200s continue to monitor chronic diastolic HF (EF 57%, TTE 2017), hold off home dose lasix for now CAD/ PVD/CVA as per records chronic LBBB continue home dose amiodarone hypertension blood pressure controlled on amlodipine, continue hx aortic 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/TAA sp mechanical AVR/repair (2007)/PAF on Coumadin Coumadin INR goal between 2.5-3.5 INR supratherapeutic on admission as 3.8 most recent is 3.3 will give coumadin 2 mg daily and trend INR chronic anemia secondary to CKD, hemoglobin at baseline past tobacco use DVT prophylaxis. Coumadin INR goal between 2.5-3.5 Full code as per niece/contact family, Ms. Aleisha Toure ([phone]) Subjective Patient seen and examined. No obvious discomfort. Is verbal. On nasal cannula denies acute chest pain. denies abdominal pain or back pain or leg pain. denies vomiting Physical Exam 2 Vital Signs (Past 24 Hours): Last Vital Signs Temp 37.2 C 05/18/18 18:41 Pulse 79 05/18/18 19:07 Resp 18 05/18/18 19:07 BP 129/65 05/18/18 18:41 Pulse Ox 91 05/18/18 19:07 Physical Exam: GENERAL: Obese, no respiratory distress SKIN: Pallor, warm NECK : Supple, short, no tenderness CHEST : on nasal cannula, HEART : Regular rate Lungs: no wheezing, on nasal cannula ABDOMEN: obese, nontender, bowel sounds present EXTREMITIES : RLE induration, minimal tenderness; no other conspicuous deformities noted NEUROLOGIC : awake and alert and oriented and verbal
[2018-05-18] MEDS ORDERED: LEVOTHYROXINE SODIUM 50 MCG TABLET PO SCH (21:00)
[2018-05-19] MEDS: IPRATROPIUM BROMIDE NEB SOLN 0.02% 2.5 ML VIAL INH SCH ×3 (01:46→13:40)
[2018-05-19] MEDS: LEVALBUTEROL 1.25MG/0.5ML NEB INH SCH ×3 (01:47→13:40)
[2018-05-19 06:48] LABS: Basophils # (auto) 0.03 K/uL (0-0.2); Basophils % (auto) 0.2 %; Eosinophils # (auto) 0.11 K/uL (0-0.5); Eosinophils % (auto) 0.8 %; Hematocrit (blood only) 33.4 % (42-52); Hemoglobin 10.5 g/dL (14.0-18.0); Immature Granulocytes # (auto) 0.03 K/uL (0.00-0.02); Immature Granulocytes % (auto) 0.2 %; Lymphocytes # (auto) 1.47 K/uL (1.2-3.4); Lymphocytes % (auto) 10.2 %; Mean Corpuscular Hgb Conc 31.4 g/dL (32-36); Mean Corpuscular Volume 87.9 fL (80-100); Mean Platelet Volume 10.9 fL (7.4-10.4); Monocytes # (auto) 0.91 K/uL (0.11-0.59); Monocytes % (auto) 6.3 %; Neutrophils # (auto) 11.86 K/uL (1.4-6.5); Neutrophils % (auto) 82.3 %; Platelet Count 147 K/uL (130-400); RDW Coefficient of Variation 16.2 % (11.5-14.5); RDW Standard Deviation 52.4 fL (36.4-46.3); White Blood Count 14.41 K/uL (4.8-10.8)
[2018-05-19 07:11] LABS: INR 3.3 (0.9-1.1)
[2018-05-19 07:21] LABS: Albumin Level 2.6 gm/dl (3.4-5.0); BUN Creatinine Ratio 17.7 (10-20); Calcium 8.1 mg/dl (8.5-10.1); Creatinine Clr Calc Pharmacy 37.5 ml/min; Est GFR (African American) 30.6; Est GFR (Non-African American) 26.4; Potassium 3.7 mmol/L (3.5-5.1)
[2018-05-19 07:26] LABS: Albumin Globulin Ratio 0.6 (0.9-2); Bilirubin,Total 0.4 mg/dl (0.2-1); Globulin 4.1 gm/dl (2.5-4.0); Total Protein 6.7 gm/dl (6.4-8.2)
[2018-05-19] MEDS: INSULIN ASPART 100 UNITS/ML 3 ML PEN SC SCH ×2 (08:34→12:36)
[2018-05-19] MEDS: AMLODIPINE BESYLATE 5 MG TAB PO SCH (08:35)
[2018-05-19] MEDS: DOCUSATE SODIUM 100 MG CAP PO SCH (08:35)
[2018-05-19] MEDS: ATORVASTATIN 40 MG TAB PO SCH (08:35)
[2018-05-19] MEDS: METOPROLOL TARTRATE 25 MG TAB PO SCH (08:36)
[2018-05-19] MEDS: FOLIC ACID 1 MG TAB PO SCH (08:37)
[2018-05-19] MEDS: AMIODARONE 200 MG TAB PO SCH (08:37)
[2018-05-19] MEDS: INSULIN GLARGINE SOLOSTAR 100 UNITS/ML 3 ML PEN SQ SCH (08:38)
[2018-05-19] MEDS: ISOSORBIDE MONO EXTENDED REL 30 MG TABCR PO SCH (08:56)
[2018-05-19] MEDS ORDERED: INSULIN GLARGINE SOLOSTAR 100 UNITS/ML 3 ML PEN SQ SCH ×2 (09:00)
[2018-05-19] MEDS: DOXYCYCLINE HYCLATE 100 MG in DEXTROSE 5% 100 ML IV SCH (11:32)
--- NOTE | 2018-05-19 16:10 | Hospitalist Progress Note ---
Date of Service May 19, 2018 Assessment & Plan (1) Respiratory failure: 77 year old male who presented to the Emergency Room with shortness of breath Acute respiratory failure with hypoxia initial metabolic encephalopathy on admission, initial lactic acidosis, initially with fever, leukocytosis, possible upper respiratory infection -initially on BIPAP -admission Cardiomegaly and radiographic evidence of mild chronic congestive failure/fluid overload. No evidence of lobar consolidation -symptoms improved after BIPAP and nebulizer treatments while in the hospital -by 05/19/18 AM patient appeared to be clinically stable on room air but noted to be 88 % saturation when trying to transfer, patient declined evaluation for possible home oxygen use and reported that even if home oxygen tank was given to him that he would not use it anyways. repeat oxygen saturation at rest was 92 % on room air in the afternoon. patient insisted that he be discharged to the care of his niece at bedside. -was given Doxycycline on this hospital stay for fever for possible cellulitus of the legs but this does not appear to be acute skin changes, the doxycycline does provider respiratory coverage in case of pneumonia -patient will be discharged with Doxycycline BID for 7 more days for respiratory infection coverage initial metabolic encephalopathy on admission appears to have resolved by 05/18/18 initial presentation concerning for sepsis given elevated white blood cell counts and lactic acidosis of 2.8 but has been hemodynamically stable blood cultures are pending lactic acid has resolved on doxycycline for possible respiratory coverage possibly that lactic acidosis partly from hyperglycemia, glucose above 400 on admission 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 insulin suboptimal control as of recent inpatient hemoglobin A1c of 8.5 last January 2018 hyperglycemia resolving with subcutanous Lantus and sliding scale insulin, currently in the 200s patient may resume home dose insulin chronic diastolic HF (EF 57%, TTE 2018), patient can resume home dose Lasix CAD/ PVD/CVA as per records chronic LBBB continue home dose amiodarone hypertension blood pressure controlled on amlodipine, continue hx aortic 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/TAA sp mechanical AVR/repair (2007)/PAF on Coumadin Coumadin INR goal between 2.5-3.5 INR supratherapeutic on admission as 3.8 most recent is 3.3 and stable patient can resume home dose coumadin chronic anemia secondary to CKD hemoglobin at baseline past tobacco use DVT prophylaxis. Coumadin INR goal between 2.5-3.5 Full code as per niece/contact family, Ms. Aleisha Toure ([phone]) Discharge Diagnosis Acute respiratory failure with hypoxia, initial metabolic encephalopathy on admission, initial lactic acidosis, initially with fever, leukocytosis, possible upper respiratory infection, Type 2 diabetes mellitus on custodial current use of insulin with hyperglycemia, hx aortic 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/TAA sp mechanical AVR/repair (2007)/PAF on Coumadin, Coumadin INR goal between 2.5-3.5 INR supratherapeutic on admission, anticoagulated on anticoagulation therapy Patient to be discharged on Doxycycline 100 mg BID for 7 days Patient should follow up with primary medical doctor 05/22/2018 11:00 AM Provider Amira Kaufman MD Department Internal Medicine [facility] 05/22/2018 6:20 PM Provider [facility], [facility] 05/24/2018 12:00 PM Provider [facility], [facility] 06/22/2018 4:00 PM Provider [facility] Department Radiology [address] 06/23/2018 4:00 PM Provider Alise Buck MD Department Internal Medicine [facility] 06/26/2018 1:30 PM Provider Vilma Hardy MD Department Nephrology [facility] 07/04/2018 2:30 PM Provider Zana Olivares PA-C Department Cardiology [facility] Subjective by 05/19/18 AM patient appeared to be clinically stable on room air but noted to be 88 % saturation when trying to transfer, patient declined evaluation for possible home oxygen use and reported that even if home oxygen tank was given to him that he would not use it anyways. repeat oxygen saturation at rest was 92 % on room air in the afternoon. patient insisted that he be discharged to the care of his niece at bedside. denies acute chest pain. denies abdominal pain or back pain or leg pain. denies vomiting hospitalist discussed at length with patient and his niece about clinic follow ups Physical Exam 2 Vital Signs (Past 24 Hours): Last Vital Signs Temp 36.9 C 05/19/18 14:45 Pulse 63 05/19/18 14:45 Resp 16 05/19/18 14:45 BP 136/65 05/19/18 14:45 Pulse Ox 94 05/19/18 14:45 Constitutional: + obese Eyes: normal visual newberry by confrontation and EOM intact bilaterally ENMT: external ear and nose normal, oropharynx normal Neck: trachea midline, no thyromegaly Respiratory: normal respiratory effort, lungs clear to auscultation Cardiovascular: RRR, no murmur, no edema Gastrointestinal (Abdomen): normal bowel sounds, soft, nontender, no hepatosplenomegaly Musculoskeletal: Head/Neck/Chest: normocephalic and head atraumatic Neurologic: CN's II-XI intact bilaterally Psychiatric: A+Ox3, euthymic affect
--- NOTE | 2018-05-19 16:23 | Discharge Summary ---
Date of Service May 19, 2018 Admission HPI Per Admitting Provider History obtained from patient, family, and records. Limited history from patient secondary to disorientation. 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 Recent confinement February 2018 for right leg weakness. Acute CVA ruled out. As per patient niece, patient noted to be short of breath and in respiratory distress yesterday by patient . Patient did not want to go to the ER initially. Worsening respiratory distress subsequently noted at home. O2 sats 80s upon arrival of EMS. Upon arrival at the ER patient received Lasix for possible CHF. BiPAP initiated at the ER. Patient unable to answer questions regarding chest pain, cough symptoms. 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 Admission Exam Per Admitting Provider GENERAL: Obese, disoriented, no respiratory distress SKIN: Pallor, warm HEENT: Pale palpebral conjunctivae, no ptosis, dry buccal mucosa, BiPAP in place NECK : Supple, short, no tenderness CHEST : Decreased breath sounds, expiratory wheezes, healed sternal scar, no tenderness HEART : RRR, mechanical murmur ABDOMEN: Some distention, nontender EXTREMITIES : RLE induration, minimal tenderness; no other conspicuous deformities noted NEUROLOGIC : Disoriented but coherent, no facial asymmetry, gait and stance not assessed Principal Diagnosis Acute respiratory failure with hypoxia, initial metabolic encephalopathy on admission, initial lactic acidosis, initially with fever, leukocytosis, possible upper respiratory infection, Type 2 diabetes mellitus on assisted current use of insulin with hyperglycemia, hx aortic 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/TAA sp mechanical AVR/repair (2007)/PAF on Coumadin, Coumadin INR goal between 2.5-3.5 INR supratherapeutic on admission, anticoagulated on anticoagulation therapy Discharge Exam Constitutional + obese Eyes normal visual newberry by confrontation and EOM intact bilaterally ENMT external ear and nose normal, oropharynx normal Neck trachea midline, no thyromegaly Respiratory normal respiratory effort, lungs clear to auscultation Cardiovascular RRR, no murmur, no edema Gastrointestinal (Abdomen) normal bowel sounds, soft, nontender, no hepatosplenomegaly Musculoskeletal Head/Neck/Chest: normocephalic and head atraumatic Neurologic CN's II-XI intact bilaterally Psychiatric A+Ox3, euthymic affect Discharge Data Allergies Allergy/AdvReac Type Severity Reaction Status Date / Time No Known Allergies Allergy Unverified 03/01/18 23:30 Consultations 05/17/18 20:16 ED Decision to Admit Stat 05/18/18 00:53 Consult Case Management - Discharge Planning Routine 05/19/18 07:10 Consult Case Management - Discharge Planning Routine Ordered Studies 05/17/18 20:48 CT head/brain wo con Urgent 05/17/18 22:21 CT lower leg RT wo con Urgent Hospital Course (1) Respiratory failure: 77 year old male who presented to the Emergency Room with shortness of breath Acute respiratory failure with hypoxia initial metabolic encephalopathy on admission, initial lactic acidosis, initially with fever, leukocytosis, possible upper respiratory infection -initially on BIPAP -admission Cardiomegaly and radiographic evidence of mild chronic congestive failure/fluid overload. No evidence of lobar consolidation -symptoms improved after BIPAP and nebulizer treatments while in the hospital -by 05/19/18 AM patient appeared to be clinically stable on room air but noted to be 88 % saturation when trying to transfer, patient declined evaluation for possible home oxygen use and reported that even if home oxygen tank was given to him that he would not use it anyways. repeat oxygen saturation at rest was 92 % on room air in the afternoon. patient insisted that he be discharged to the care of his niece at bedside. -was given Doxycycline on this hospital stay for fever for possible cellulitus of the legs but this does not appear to be acute skin changes, the doxycycline does provider respiratory coverage in case of pneumonia -patient will be discharged with Doxycycline BID for 7 more days for respiratory infection coverage initial metabolic encephalopathy on admission appears to have resolved by 05/18/18 initial presentation concerning for sepsis given elevated white blood cell counts and lactic acidosis of 2.8 but has been hemodynamically stable blood cultures are pending lactic acid has resolved on doxycycline for possible respiratory coverage possibly that lactic acidosis partly from hyperglycemia, glucose above 400 on admission Type 2 diabetes mellitus on assisted current use of insulin suboptimal control as of recent inpatient hemoglobin A1c of 8.5 last January 2018 hyperglycemia resolving with subcutanous Lantus and sliding scale insulin, currently in the 200s patient may resume home dose insulin chronic diastolic HF (EF 57%, TTE 2018), patient can resume home dose Lasix CAD/ PVD/CVA as per records chronic LBBB continue home dose amiodarone hypertension blood pressure controlled on amlodipine, continue hx aortic 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/TAA sp mechanical AVR/repair (2007)/PAF on Coumadin Coumadin INR goal between 2.5-3.5 INR supratherapeutic on admission as 3.8 most recent is 3.3 and stable patient can resume home dose coumadin chronic anemia secondary to CKD hemoglobin at baseline past tobacco use DVT prophylaxis. Coumadin INR goal between 2.5-3.5 Full code as per niece/contact family, Ms. 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 with hyperglycemia, hx aortic 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/TAA sp mechanical AVR/repair (2007)/PAF on Coumadin, Coumadin INR goal between 2.5-3.5 INR supratherapeutic on admission, anticoagulated on anticoagulation therapy Patient to be discharged on Doxycycline 100 mg BID for 7 days Patient should follow up with primary medical doctor 05/22/2018 11:00 AM Provider Amira Kaufman MD Department Internal Medicine [facility] 05/22/2018 6:20 PM Provider [facility] Department Pharmacy, [facility] 05/24/2018 12:00 PM Provider [facility] Department [facility], [facility] 06/22/2018 4:00 PM Provider [facility] Department Radiology [facility] 06/23/2018 4:00 PM Provider Alise Buck MD Department Internal Medicine [facility] 06/26/2018 1:30 PM Provider Vilma Hardy MD Department Nephrology [facility] 07/04/2018 2:30 PM Provider Zana Olivares PA-C Department Cardiology [facility] Total Time Total Time Spent Total Time Spent (In Minutes): 40 minutes Total Time Includes: Examination of the Patient, Discharge Planning and Medication Reconciliation Discharge Plan Discharge Items Patient Disposition: Home - Self-Care Reason For Visit: RESP FAILURE, SEPSIS Discharge Diagnosis: Acute respiratory failure with hypoxia, initial metabolic encephalopathy on admission, initial lactic acidosis, initially with fever, leukocytosis, possible upper respiratory infection, 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 with hyperglycemia, hx aortic 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/ TAA sp mechanical AVR/repair (2007)/PAF on Coumadin, Coumadin INR goal between 2.5-3.5 INR supratherapeutic on admission, anticoagulated on anticoagulation therapy Condition: Fair Discharge Goals: Improve disease control Activity: Resume your previous activity Non-emergency contact: Primary Care Provider Call non-emergency contact if: you have any medication questions Diet: Carb Consistent or DM2 and Heart Healthy Addtl Provider Instructions: Patient to be discharged on Doxycycline 100 mg BID for 7 days Patient should follow up with primary medical doctor 05/22/2018 11:00 AM Provider Amira Kaufman MD Department Internal Medicine [facility] 05/22/2018 6:20 PM Provider [facility] Department Pharmacy, [facility] 05/24/2018 12:00 PM Provider [facility] Department [facility]acy, [facility] 06/22/2018 4:00 PM Provider [facility] Department Radiology [address] 06/23/2018 4:00 PM Provider Alise Buck MD Department Internal Medicine [facility] 06/26/2018 1:30 PM Provider Vilma Hardy MD Department Nephrology [facility] 07/04/2018 2:30 PM Provider Zana Olivares PA-C Department Cardiology [facility] Prescriptions: New doxycycline hyclate 100 mg Capsule 100 mg PO BID 7 Days Qty: 14 RF: 0 Continue furosemide 40 mg Tablet 80 mg PO QAM RF: 0 atorvastatin 40 mg Tablet 40 mg PO QAM RF: 0 amiodarone 200 mg Tablet 100 mg PO QAM RF: 0 amlodipine 5 mg Tablet 2.5 mg PO QAM RF: 0 aspirin [Aspirin Low Dose] 81 mg Tablet,Delayed Release (Dr/Ec) 40.5 mg PO AMHS RF: 0 isosorbide mononitrate 60 mg Tablet Extended Release 24 Hr 90 mg PO QAM RF: 0 levothyroxine 50 mcg Tablet 50 mcg PO HS RF: 0 metoprolol tartrate 50 mg Tablet 25 mg PO AMHS RF: 0 nitroglycerin 0.4 mg Tablet, Sublingual 0.4 mg Sublingual DIRECTED PRN (Reason: Chest Pain) RF: 0 docusate sodium 100 mg Capsule 100 mg PO AMHS RF: 0 folic acid 1 mg Tablet 1 mg PO QAM RF: 0 lisinopril 40 mg Tablet 40 mg PO QAM RF: 0 insulin asp prt-insulin aspart [Novolog Mix 70-30FlexPen U-100] 100 unit/mL ( 70-30) Insulin Pen 26 units SUBCUT QAM RF: 0 terazosin 2 mg Capsule 2 mg PO HS RF: 0 warfarin 2.5 mg tablet 1 dose PO DIRECTED RF: 0 insulin asp prt-insulin aspart [Novolog Mix 70-30FlexPen U-100] 100 unit/mL ( 70-30) insulin pen 50 units subcut QDD RF: 0 Stand-Alone Forms: [facility] Discharge Orders: Discharge Order (Routine); Ordered 05/19/18 Ordered By: Hardy Murphy Admission Data Admit Date/Time: 05/17/18 22:27 Attending Provider: Hardy Murphy Admit Provider: Danish Holly Primary Care Provider: Alise Buck Other Providers: Danish Holly Service: Telemetry Medical
[2018-05-19] MEDS: WARFARIN SOD 2 MG TAB PO SCH (16:38)
[2018-05-19] MEDS ORDERED: DOXYCYCLINE HYCLATE 100 MG CAP PO SCH (21:00)
== END 2018-05-19 16:50 | disposition home health service (06) | DRG 871 ==
LOC: ED 18:03 → 2W 22:27

== ENCOUNTER 2018-06-07 11:46 | Inpatient (IN) ==
[2018-06-07] MEDS ORDERED: VANCOMYCIN HCL 2,500 MG in SODIUM CHLORIDE 0.9% 500 ML IV STA (11:54)
[2018-06-07] MEDS ORDERED: ACETAMINOPHEN 1,000 MG/100 ML VIAL IV ONE (11:59)
[2018-06-07] MEDS ORDERED: LEVOFLOXACIN/D5W 750 MG/150 ML BAG IV STA (11:59)
[2018-06-07] MEDS ORDERED: PIPERACILLIN/TAZOBACTAM 4.5 GM/120 ML BAG IV STA (11:59)
[2018-06-07] MEDS ORDERED: VANCOMYCIN CONSULT ACTIVE PRN (11:59)
[2018-06-07] MEDS ORDERED: SODIUM CHLORIDE 0.9% 500 ML IV SCH (12:00)
--- NOTE | 2018-06-07 12:20 | XRay Report ---
XR chest 1V portable CLINICAL HISTORY: sob, fever COMPARISON STUDY: Febrile 2018 FINDINGS: Postsurgical changes of midline sternotomy, valvular replacement.. The heart is enlarged. T here is aortic tortuosity/ectasia.[ There is diffuse elevation of the interstitium, likely secondary to congestive failure/fluid overload. There is no lobar consolidation. IMPRESSION: Cardiomegaly and radiographic evidence of mild congestive failure/fluid overload. No evid ence of lobar consolidation Electronically signed by: Jaylon Alvarez M.D. 06/07/2018 12:19 PM
[2018-06-07 12:27] LABS: Appearance Urine Clear (Clear); Bacteria Urine Automated Negative (Negative); Bilirubin Urine Negative (Negative); Blood Urine 3+ (Negative); Cast Urine Automated 0 /lpf (0-5); Color Urine Yellow; Glucose Urine UA Negative (Negative); Ketones Urine Negative (Negative); Leukocyte Esterase Urine Negative (Negative); Nitrite Urine Negative (Negative); Protein Urine Negative (Negative); RBC Urine Automated >30 /hpf (0-4); Specific Gravity Urine 1.009 (1.000-1.030); Urobilinogen Urine Negative (Negative); WBC Urine Automated 0 /hpf (0-5)
[2018-06-07 12:28] LABS: Basophils # (auto) 0.02 K/uL (0-0.2); Basophils % (auto) 0.2 %; Eosinophils # (auto) 0.01 K/uL (0-0.5); Eosinophils % (auto) 0.1 %; Hematocrit (blood only) 36.4 % (42-52); Hemoglobin 11.8 g/dL (14.0-18.0); Immature Granulocytes # (auto) 0.01 K/uL (0.00-0.02); Immature Granulocytes % (auto) 0.1 %; Lymphocytes # (auto) 0.43 K/uL (1.2-3.4); Lymphocytes % (auto) 4.9 %; Mean Corpuscular Hgb Conc 32.4 g/dL (32-36); Mean Corpuscular Volume 85.4 fL (80-100); Mean Platelet Volume 11.2 fL (7.4-10.4); Monocytes # (auto) 0.47 K/uL (0.11-0.59); Monocytes % (auto) 5.3 %; Neutrophils # (auto) 7.88 K/uL (1.4-6.5); Neutrophils % (auto) 89.4 %; Platelet Count 135 K/uL (130-400); RDW Coefficient of Variation 16.7 % (11.5-14.5); RDW Standard Deviation 52.3 fL (36.4-46.3); Red Blood Count 4.26 M/uL (4.7-6.1); White Blood Count 8.82 K/uL (4.8-10.8)
[2018-06-07 12:42] LABS: Albumin Level 2.9 gm/dl (3.4-5.0); Calcium 8.3 mg/dl (8.5-10.1); Creatinine Clr Calc Pharmacy 37.2 ml/min; Est GFR (African American) 28.9; Potassium 3.6 mmol/L (3.5-5.1)
[2018-06-07 12:46] LABS: Albumin Globulin Ratio 0.6 (0.9-2); Bilirubin,Total 0.9 mg/dl (0.2-1); Globulin 5.2 gm/dl (2.5-4.0); Total Protein 8.1 gm/dl (6.4-8.2); Troponin I 0.032 ng/ml (0-0.045)
[2018-06-07 12:48] LABS: INR 5.2 (0.9-1.1)
--- NOTE | 2018-06-07 13:53 | History & Physical Report ---
Date of Service June 07, 2018 Assessment & Plan (1) Respiratory failure: Admitted with Lin respiratory failure with profound hypoxemia he Likely secondary to CHF exacerbation Has been on BiPAP and getting better ABG did not show any significant CO2 retention We will continue with oxygen as needed Present on Admission?: Yes (2) CHF exacerbation: Has swelling of the legs and bloating Chest x-ray showed pulmonary edema but no evidence of pneumonia He has been on Lasix 80 mg as an outpatient We will give Lasix IV 80 mg daily and monitor intake output His troponin is normal without any ACS We will get serial troponin Present on Admission?: Yes (3) Hypertensive urgency: Has history of hypertension Noted to have systolic blood pressure of more than 200 Received nitro paste and that dropped down blood pressure We will continue current blood pressure medications with hold parameters (4) S/P aortic valve replacement: Denies any chest pain INR is supratherapeutic (5) Diabetes type 2, uncontrolled: Continue current dose of insulin Check blood sugars before meals at bedtime SSI Check hemoglobin A1c (6) PAF (paroxysmal atrial fibrillation): Heart rate is controlled on amiodarone Has left bundle branch block with associated ST-T wave changes INR was noted to be high at 5.2 We will hold Coumadin and monitor INR (7) Hyperlipidemia: Continue amiodarone and beta-shiv (8) Hypothyroidism: Continue replacement (9) CVD (cardiovascular disease): Has a history of a stroke Has mild right-sided paresis Has been ambulating at home with the help of the walker (10) Fever: Noted to have fever of 38 C in the hospital Chest x-ray did not show any pneumonia and no history of bronchitis UA has been unremarkable Has bilateral leg swelling with redness Doubt any sepsis Received 1 dose of intravenous Vanco vancomycin and will continue Received 1 dose of Levaquin and will replace with Ancef for possible skin infection Blood culture has been sent Adjust antibiotic when appropriate History of Present Illness Chief Complaint: Shortness of breath and feels unwell since yesterday Primary Care Provider: Alise Buck [id number] male with significant past medical history of status post aortic valve replacement on anticoagulation, paroxysmal atrial fibrillation, ty pe 2 diabetes on insulin, history of cerebrovascular disease with right-sided paresis, hypertension, hyperlipidemia, and hypothyroidism apparently has been complaining of feeling unwell and shortness of breath since last evening. He was noted to have more shortness of breath and confused this morning as per the nephew and he was brought into emergency room for further evaluation. He denies any chest pain and/or palpitation, no abdominal distention, pain, nausea and/or vomiting, no fever and/or chills, and no problem with urine and her bowel habit. On the way he required BiPAP to maintain saturation and his blood pressure was systolic more than 100 200 and he was given Nitropaste in the ER his blood pressure dropped to 90s also noted to have fever of 38C. Chest x-ray did show probable congestion but no pneumonia and apparent blood counts were unremarkable. His INR was more than 10. He was given BiPAP, intravenous vancomycin and Levaquin and was advised for admission. Allergies Allergy/AdvReac Type Severity Reaction Status Date / Time No Known Allergies Allergy Unverified 03/01/18 23:30 Home Medications Home Medications Medication Instructions Recorded Confirmed Type Novolog Mix 70-30FlexPen U-100 26 units SUBCUT QAM 02/23/18 06/07/18 History amiodarone 100 mg PO QAM 02/23/18 06/07/18 History amlodipine 2.5 mg PO QAM 02/23/18 06/07/18 History aspirin [Aspirin Low Dose] 40.5 mg PO AMHS 02/23/18 06/07/18 History atorvastatin 40 mg PO QAM 02/23/18 06/07/18 History docusate sodium 100 mg PO AMHS 02/23/18 06/07/18 History folic acid 1 mg PO QAM 02/23/18 06/07/18 History furosemide 80 mg PO QAM 02/23/18 06/07/18 History isosorbide mononitrate 90 mg PO QAM 02/23/18 06/07/18 History levothyroxine 50 mcg PO HS 02/23/18 06/07/18 History lisinopril 40 mg PO QAM 02/23/18 06/07/18 History metoprolol tartrate 25 mg PO AMHS 02/23/18 06/07/18 History nitroglycerin 0.4 mg SUBLINGUAL DIRECTED PRN 02/23/18 06/07/18 History terazosin 2 mg PO HS 02/24/18 06/07/18 History warfarin 1 dose PO DIRECTED 03/01/18 06/07/18 History insulin asp prt-insulin aspart 50 units SUBCUT QDD 05/18/18 06/07/18 History Past Med/Surg History Medical History CVA (cerebral vascular accident) (Acute) CHF (congestive heart failure) (Chronic) HTN (hypertension) (Chronic) Coronary artery disease Family History Other No pertinent family history Social History Preferred Language: Georgian Beliefs That Will Affect Care: None marital status: Current Living Situation: Spouse Feels Safe at Home: Yes Smoking Status: Former smoker Hx Alcohol Use: Yes Hx Substance Use: No Review of Systems All systems reviewed & are unremarkable except as noted in HPI & below Respiratory: + cough and + dyspnea Some redness involving the lower extremities Physical Exam Vital Signs (Past 24 Hours): Last Vital Signs Temp 39.0 C H 06/07/18 11:54 Pulse 81 06/07/18 13:30 Resp 35 H 06/07/18 13:30 BP 90/46 L 06/07/18 13:30 Pulse Ox 96 06/07/18 13:30 Physical Exam: Moderate distress at rest on BiPAP Constitutional: WD/WN, vitals as above well developed, well nourished, + acute distress, + in distress, + diaphoretic, + overweight and + edematous Eyes: PERRL, conjunctivae normal, anicteric sclerae ENMT: external ear and nose normal, oropharynx normal Neck: trachea midline, no thyromegaly Respiratory: + respiratory distress, + cough and + tachypneic Auscultation: + diminished lung sounds and + crackles Cardiovascular: Rate/Rhythm: regular rate and regular rhythm Heart Sounds: normal S1, normal S2 and + murmur (Mechanical valve sound with 2/6 ejection systolic murmur over precordium) Extremities: + edema (1-2+ edema bilateral lower legs with chronic skin changes and redness with increased local temperature) Gastrointestinal (Abdomen): Inspection/Auscultation: abdomen normal to inspection, + abdomen distended and normal bowel sounds Percussion/Palpation: abdomen soft Neurologic: Alert and awake. Pleasantly confused. Moving all limbs equally Results & Data Laboratory Results Short CBC 06/07/18 Range/Units 12:00 WBC 8.82 (4.8-10.8) K/uL Hgb 11.8 L (14.0-18.0) g/dL Hct 36.4 L (42-52) % Plt Count 135 (130-400) K/uL BMP 06/07/18 12:00 Sodium 136 Potassium 3.6 Chloride 102 Carbon Dioxide 29 BUN 29 H Creatinine 2.41 H Glucose 180 H Calcium 8.3 L Cardiac Enzymes 06/07/18 Range/Units 12:00 Troponin I 0.032 (0-0.045) ng/ml Liver Function 06/07/18 Range/Units 12:00 Total Bilirubin 0.9 (0.2-1) mg/dl AST 23 (15-37) U/L ALT 19 (12-78) U/L Alkaline Phosphatase 107 (45-117) U/L Albumin 2.9 L (3.4-5.0) gm/dl Urine 06/07/18 Range/Units 12:10 Urine Color Yellow Urine Appearance Clear (Clear) Urine pH 6.0 (4.5-7.5) Ur Specific Chloride 1.009 (1.000-1.030) Urine Protein Negative (Negative) Urine Glucose (UA) Negative (Negative) Medications Administered Current Inpatient Medications Vancomycin HCl 2,500 mg/ (Sodium Chloride) 550 mls @ 200 mls/hr IV NOW STA Stop: 06/07/18 14:23 Last Admin: 06/07/18 13:07 Dose: 200 mls/hr Documented by: Miscellaneous Information (Consult) 1 ea N/A UD PRN PRN Reason: Consult Stop: 07/07/18 11:58 Code Status & VTE Plan Code Status DNR VTE Prophylaxis Plan VTE Prophylaxis will be ordered: Yes (1) CHF exacerbation Heart failure type: unspecified Qualified Code(s): I50.9 - Heart failure, unspecified
--- NOTE | 2018-06-07 14:20 | Emergency Department Note ---
Entered by Cici Juarez acting as a scribe for Moris Garcia DO History of Present Illness General Chief complaint: Respiratory Distress Source: patient and EMS Limitations: other (Patient is poor historian) History of Present Illness Provider complaint: Respiratory distress Associated symptoms: + denies other symptoms (pain, diarrhea), + cough and + other (rhinorrhea, sore throat); no nausea/vomiting The patient is a 79 year old male who presents to the Emergency Room with complaints of respiratory distress. The patient states that he is unsure of when his symptoms started. The patient's family reports that the patient stated he was not feeling well yesterday. The patient's family notes that the patient lives at home with his and typically uses a cane to ambulate. The patient denies any pain, vomiting, or diarrhea, but admits to a cough, sore throat, and rhinorrhea. EMS reports that the patient had a fever of 103 and state that the patient has significant edema to his bilateral lower extremities. The HPI is limited secondary to the patient being a poor historian. Home Medications Home Medications Medication Instructions Recorded Confirmed Type Novolog Mix 70-30FlexPen U-100 26 units SUBCUT QA 02/23/18 06/07/18 History amiodarone 100 mg PO QA 02/23/18 06/07/18 History amlodipine 2.5 mg PO QA 02/23/18 06/07/18 History aspirin [Aspirin Low Dose] 40.5 mg PO [facility] 02/23/18 06/07/18 History atorvastatin 40 mg PO QA 02/23/18 06/07/18 History docusate sodium 100 mg PO [facility] 02/23/18 06/07/18 History folic acid 1 mg PO QAM 02/23/18 06/07/18 History furosemide 80 mg PO QAM 02/23/18 06/07/18 History isosorbide mononitrate 90 mg PO QAM 02/23/18 06/07/18 History levothyroxine 50 mcg PO HS 02/23/18 06/07/18 History lisinopril 40 mg PO QAM 02/23/18 06/07/18 History metoprolol tartrate 25 mg PO [facility] 02/23/18 06/07/18 History nitroglycerin 0.4 mg SUBLINGUAL DIRECTED PRN 02/23/18 06/07/18 History terazosin 2 mg PO HS 02/24/18 06/07/18 History warfarin 1 dose PO DIRECTED 03/01/18 06/07/18 History insulin asp prt-insulin aspart 50 units SUBCUT QDD 05/18/18 06/07/18 History Allergies Allergy/AdvReac Type Severity Reaction Status Date / Time No Known Allergies Allergy Unverified 03/01/18 23:30 Past Med/Surg History Medical History CVA (cerebral vascular accident) (Acute) CHF (congestive heart failure) (Chronic) HTN (hypertension) (Chronic) Coronary artery disease Family History Other No pertinent family history Social History Preferred Language: Kazakh Beliefs That Will Affect Care: None marital status: Current Living Situation: Spouse Feels Safe at Home: Yes Smoking Status: Former smoker Hx Alcohol Use: Yes Hx Substance Use: No Review of Systems ROS was limited secondary to the patient being a poor historian. Physical Exam Vital Signs Vital Signs - 24 hr 06/07/18 11:54 06/07/18 11:55 06/07/18 12:25 Temperature 39.0 C H Temperature Source Oral Sepsis Recent Fever Within 48 Hours Yes Sepsis New/Unexplained Change in Mental Status No Sepsis Action Taken by Nursing No Action Required Pulse Rate 107 H Pulse Rate [Apical] 108 H Pulse Rate from SpO2 Sensor Respiratory Rate 38 H 28 H Respiratory Effort / Characteristics Spontaneous Labored Short of Breath Respiratory Depth Shallow Respiratory Pattern Regular Blood Pressure 153/104 H Blood Pressure [Left Arm] 144/82 H Blood Pressure Mean 120 Blood Pressure Mean [Left Arm] 102 Pulse Oximetry 94 94 97 Oxygen Delivery Method Room Air BiPAP BiPAP Fraction of Inspired Oxygen 50 06/07/18 12:31 06/07/18 12:45 06/07/18 13:00 Temperature Temperature Source Sepsis Recent Fever Within 48 Hours Sepsis New/Unexplained Change in Mental Status Sepsis Action Taken by Nursing Pulse Rate 103 H 86 79 Pulse Rate [Apical] Pulse Rate from SpO2 Sensor 103 H 86 79 Respiratory Rate 27 H 35 H 34 H Respiratory Effort / Characteristics Respiratory Depth Respiratory Pattern Blood Pressure 90/79 L 115/55 L 98/48 L Blood Pressure [Left Arm] Blood Pressure Mean 82 75 64 Blood Pressure Mean [Left Arm] Pulse Oximetry 98 97 97 Oxygen Delivery Method BiPAP BiPAP Fraction of Inspired Oxygen 06/07/18 13:15 06/07/18 13:30 Temperature Temperature Source Sepsis Recent Fever Within 48 Hours Sepsis New/Unexplained Change in Mental Status Sepsis Action Taken by Nursing Pulse Rate 81 81 Pulse Rate [Apical] Pulse Rate from SpO2 Sensor 81 81 Respiratory Rate 34 H 35 H Respiratory Effort / Characteristics Respiratory Depth Respiratory Pattern Blood Pressure 96/45 L 90/46 L Blood Pressure [Left Arm] Blood Pressure Mean 62 60 Blood Pressure Mean [Left Arm] Pulse Oximetry 96 96 Oxygen Delivery Method BiPAP BiPAP Fraction of Inspired Oxygen CONSTITUTIONAL/VITAL SIGNS: Reviewed / noted above. GENERAL: Non-toxic in appearance. INTEGUMENTARY: Warm, dry, and [place]. HEAD: Normocephalic. EYES: without scleral icterus or trauma. ENT/OROPHARYNX: clear and moist. LYMPHADENOPATHY/NECK: Is supple without lymphadenopathy or meningismus. RESPIRATORY: Tachypnea. Severe respiratory distress. CARDIOVASCULAR: Regular rate and rhythm. GI/ABDOMEN: Soft and nontender. No organomegaly or pulsatile mass. No rebound or guarding. Normal bowel sounds. EXTREMITIES: Edema in bilateral lower extremities. Erythema bilaterally as well. BACK: No CVA tenderness. NEUROLOGICAL: Awake and answers basic questions only. Intact without gross focal deficits. PSYCHIATRIC: normal affect. MUSCULOSKELETAL: Normally developed with good muscle tone. Course 1146: Past medical records reviewed. The patient was evaluated in room C9, and a complete history and physical examination were performed. 1155: Code sepsis was called. 1256: [facility] Hospitalist was paged. 1259: I reviewed the patient's case with Yuko Alford PA-C. She and her attending, Dr. Reyes, will evaluate the patient for further management. Consultations Consultation #1: Yuko Alford PA-C Time: 12:59 Administered Medications Vancomycin HCl 2,500 mg/ (Sodium Chloride) 550 mls @ 200 mls/hr IV NOW STA Stop: 06/07/18 14:23 Last Admin: 06/07/18 13:07 Dose: 200 mls/hr Documented by: [id number] Discontinued Medications Acetaminophen (Ofirmev) 1,000 mg in 100 mls @ 400 mls/hr IV NOW ONE Stop: 06/07/18 12:13 Last Infusion: 06/07/18 13:06 Dose: 0 mls/hr Documented by: [id number] Admin: 06/07/18 12:26 Dose: 400 mls/hr Documented by: [id number] Piperacillin Sod/Tazobactam Sod (Zosyn) 4.5 gm in 120 mls @ 200 mls/hr IV NOW STA Stop: 06/07/18 12:34 Last Infusion: 06/07/18 13:06 Dose: 0 mls/hr Documented by: [id number] Admin: 06/07/18 12:26 Dose: 200 mls/hr Documented by: [id number] Levofloxacin/Dextrose (Levaquin/D5w) 750 mg in 150 mls @ 100 mls/hr IV NOW STA Stop: 06/07/18 13:28 Last Admin: 06/07/18 13:07 Dose: 100 mls/hr Documented by: [id number] Sodium Chloride (Nss) 500 mls @ 999 mls/hr IV .Q31M JOYCE Stop: 06/07/18 12:30 Last Infusion: 06/07/18 13:06 Dose: 0 mls/hr Documented by: [id number] Admin: 06/07/18 12:27 Dose: 999 mls/hr Documented by: [id number] Medical Decision Making Differential Diagnosis Etiologies such as infections, reactive airway disease, COPD, pneumonia, pleural effusion, pulmonary edema, ARDS, pneumothorax, CHF, cardiac ischemia, cardiac tamponade, dysrhythmia, anemia, pulmonary embolism, musculoskeletal, gastrointestinal process, as well as others were entertained. Medical Records Attestation: I reviewed the patient's medical records. Home Medications Current Medication List: was personally reviewed by me Laboratory Data Attestation: I reviewed the patient's lab results. Result diagrams: 06/07/18 12:00 06/07/18 12:00 Lab Results 06/07/18 06/07/18 06/07/18 Range/Units 11:52 12:00 12:00 WBC (4.8-10.8) K/uL RBC (4.7-6.1) M/uL Hgb (14.0-18.0) g/dL Hct (42-52) % MCV (80-100) fL MCH (25-34) pg MCHC (32-36) g/dL RDW Std Deviation (36.4-46.3) fL RDW Coeff of Elizabeth (11.5-14.5) % Plt Count (130-400) K/uL MPV (7.4-10.4) fL Immature Gran % (Auto) % Neut % (Auto) % Lymph % (Auto) % [place] % (Auto) % Eos % (Auto) % Baso % (Auto) % Immature Gran # (Auto) (0.00-0.02) K/uL Neut # (Auto) (1.4-6.5) K/uL Lymph # (Auto) (1.2-3.4) K/uL [place] # (Auto) (0.11-0.59) K/uL Eos # (Auto) (0-0.5) K/uL Baso # (Auto) (0-0.2) K/uL PT 47.0 H (9.0-12.0) Seconds INR 5.2 H (0.9-1.1) Sodium (136-145) mmol/L Potassium (3.5-5.1) mmol/L Chloride (98-107) mmol/L Carbon Dioxide (21-32) mmol/L Anion Gap (3-11) BUN (7-18) mg/dl Creatinine (0.6-1.4) mg/dl Est Cr Clr Drug Dosing ml/min Est GFR ( Amer) Est GFR (Non-Af Amer) BUN/Creatinine Ratio (10-20) Glucose (70-99) mg/dl POC Lactic Acid Billy (0.90-1.70) mmol/L Calcium (8.5-10.1) mg/dl Total Bilirubin (0.2-1) mg/dl AST (15-37) U/L ALT (12-78) U/L Alkaline Phosphatase (45-117) U/L Troponin I (0-0.045) ng/ml Total Protein (6.4-8.2) gm/dl Albumin (3.4-5.0) gm/dl Globulin (2.5-4.0) gm/dl Albumin/Globulin Ratio (0.9-2) Procalcitonin 0.54 H (0-0.5) ng/ml Urine Color Urine Appearance (Clear) Urine pH (4.5-7.5) Ur Specific Snyder (1.000-1.030) Urine Protein (Negative) Urine Glucose (UA) (Negative) Urine Ketones (Negative) Urine Blood (Negative) Urine Nitrite (Negative) Urine Bilirubin (Negative) Urine Urobilinogen (Negative) Ur Leukocyte Esterase (Negative) Urine WBC (Auto) (0-5) /hpf Urine RBC (Auto) (0-4) /hpf U Hyaline Cast (Auto) (0-5) /lpf U Epithel Cells (Auto) (0-5) /lpf Urine Bacteria (Auto) (Negative) Influenza Type A Ag Neg for Influ A (Neg) Influenza Type B Ag Neg for Influ B (Neg) 06/07/18 06/07/18 06/07/18 Range/Units 12:00 12:00 12:10 WBC 8.82 (4.8-10.8) K/uL RBC 4.26 L (4.7-6.1) M/uL Hgb 11.8 L (14.0-18.0) g/dL Hct 36.4 L (42-52) % MCV 85.4 (80-100) fL MCH 27.7 (25-34) pg MCHC 32.4 (32-36) g/dL RDW Std Deviation 52.3 H (36.4-46.3) fL RDW Coeff of Elizabeth 16.7 H (11.5-14.5) % Plt Count 135 (130-400) K/uL MPV 11.2 H (7.4-10.4) fL Immature Gran % (Auto) 0.1 % Neut % (Auto) 89.4 % Lymph % (Auto) 4.9 % [place] % (Auto) 5.3 % Eos % (Auto) 0.1 % Baso % (Auto) 0.2 % Immature Gran # (Auto) 0.01 (0.00-0.02) K/uL Neut # (Auto) 7.88 H (1.4-6.5) K/uL Lymph # (Auto) 0.43 L (1.2-3.4) K/uL [place] # (Auto) 0.47 (0.11-0.59) K/uL Eos # (Auto) 0.01 (0-0.5) K/uL Baso # (Auto) 0.02 (0-0.2) K/uL PT (9.0-12.0) Seconds INR (0.9-1.1) Sodium 136 (136-145) mmol/L Potassium 3.6 (3.5-5.1) mmol/L Chloride 102 (98-107) mmol/L Carbon Dioxide 29 (21-32) mmol/L Anion Gap 5.0 (3-11) BUN 29 H (7-18) mg/dl Creatinine 2.41 H (0.6-1.4) mg/dl Est Cr Clr Drug Dosing 37.2 ml/min Est GFR ( Amer) 28.9 Est GFR (Non-Af Amer) 25.0 BUN/Creatinine Ratio 12.0 (10-20) Glucose 180 H (70-99) mg/dl POC Lactic Acid Billy (0.90-1.70) mmol/L Calcium 8.3 L (8.5-10.1) mg/dl Total Bilirubin 0.9 (0.2-1) mg/dl AST 23 (15-37) U/L ALT 19 (12-78) U/L Alkaline Phosphatase 107 (45-117) U/L Troponin I 0.032 (0-0.045) ng/ml Total Protein 8.1 (6.4-8.2) gm/dl Albumin 2.9 L (3.4-5.0) gm/dl Globulin 5.2 H (2.5-4.0) gm/dl Albumin/Globulin Ratio 0.6 L (0.9-2) Procalcitonin (0-0.5) ng/ml Urine Color Yellow Urine Appearance Clear (Clear) Urine pH 6.0 (4.5-7.5) Ur Specific Snyder 1.009 (1.000-1.030) Urine Protein Negative (Negative) Urine Glucose (UA) Negative (Negative) Urine Ketones Negative (Negative) Urine Blood 3+ H (Negative) Urine Nitrite Negative (Negative) Urine Bilirubin Negative (Negative) Urine Urobilinogen Negative (Negative) Ur Leukocyte Esterase Negative (Negative) Urine WBC (Auto) 0 (0-5) /hpf Urine RBC (Auto) >30 H (0-4) /hpf U Hyaline Cast (Auto) 0 (0-5) /lpf U Epithel Cells (Auto) 5-10 H (0-5) /lpf Urine Bacteria (Auto) Negative (Negative) Influenza Type A Ag (Neg) Influenza Type B Ag (Neg) 06/07/18 Range/Units 12:28 WBC (4.8-10.8) K/uL RBC (4.7-6.1) M/uL Hgb (14.0-18.0) g/dL Hct (42-52) % MCV (80-100) fL MCH (25-34) pg MCHC (32-36) g/dL RDW Std Deviation (36.4-46.3) fL RDW Coeff of Elizabeth (11.5-14.5) % Plt Count (130-400) K/uL MPV (7.4-10.4) fL Immature Gran % (Auto) % Neut % (Auto) % Lymph % (Auto) % [place] % (Auto) % Eos % (Auto) % Baso % (Auto) % Immature Gran # (Auto) (0.00-0.02) K/uL Neut # (Auto) (1.4-6.5) K/uL Lymph # (Auto) (1.2-3.4) K/uL [place] # (Auto) (0.11-0.59) K/uL Eos # (Auto) (0-0.5) K/uL Baso # (Auto) (0-0.2) K/uL PT (9.0-12.0) Seconds INR (0.9-1.1) Sodium (136-145) mmol/L Potassium (3.5-5.1) mmol/L Chloride (98-107) mmol/L Carbon Dioxide (21-32) mmol/L Anion Gap (3-11) BUN (7-18) mg/dl Creatinine (0.6-1.4) mg/dl Est Cr Clr Drug Dosing ml/min Est GFR ( Amer) Est GFR (Non-Af Amer) BUN/Creatinine Ratio (10-20) Glucose (70-99) mg/dl POC Lactic Acid Billy 2.18 H (0.90-1.70) mmol/L Calcium (8.5-10.1) mg/dl Total Bilirubin (0.2-1) mg/dl AST (15-37) U/L ALT (12-78) U/L Alkaline Phosphatase (45-117) U/L Troponin I (0-0.045) ng/ml Total Protein (6.4-8.2) gm/dl Albumin (3.4-5.0) gm/dl Globulin (2.5-4.0) gm/dl Albumin/Globulin Ratio (0.9-2) Procalcitonin (0-0.5) ng/ml Urine Color Urine Appearance (Clear) Urine pH (4.5-7.5) Ur Specific Snyder (1.000-1.030) Urine Protein (Negative) Urine Glucose (UA) (Negative) Urine Ketones (Negative) Urine Blood (Negative) Urine Nitrite (Negative) Urine Bilirubin (Negative) Urine Urobilinogen (Negative) Ur Leukocyte Esterase (Negative) Urine WBC (Auto) (0-5) /hpf Urine RBC (Auto) (0-4) /hpf U Hyaline Cast (Auto) (0-5) /lpf U Epithel Cells (Auto) (0-5) /lpf Urine Bacteria (Auto) (Negative) Influenza Type A Ag (Neg) Influenza Type B Ag (Neg) Imaging Data Radiologist's Impression: Radiology results as stated below per my review and the radiologist's interpretation: XR chest 1V portable CLINICAL HISTORY: sob, fever COMPARISON STUDY: Febrile 2018 FINDINGS: Postsurgical changes of midline sternotomy, valvular replacement.. The heart is enlarged. There is aortic tortuosity/ectasia.[ There is diffuse elevation of the interstitium, likely secondary to congestive failure/fluid overload. There is no lobar consolidation. IMPRESSION: Cardiomegaly and radiographic evidence of mild congestive failure/fluid overload. No evidence of lobar consolidation Electronically signed by: Jaylon Alvarez M.D. 06/07/2018 12:19 PM ECG Data Attestation: I personally reviewed and interpreted this ECG as follows: Indication: other (respiratory distress) Rate (beats per minute): 108 Rhythm: sinus rhythm Findings: + LBBB; no ST elevation and no ectopy Comparison ECG Date: from (04/29/18) Change: no significant change (similar to prior) Blood Pressure Blood Pressure Findings: Low blood pressure Blood Pressure Disposition: further management by hospitalist [facility] Maria Isabel This is a 77-year-old male who presents to the ED with a chief complaint of acute shortness of breath. The patient's breathing difficulty started last night and worsened through the day today. He was noted to have a fever of 103.7 by EMS. The patient was tachypneic and having moderate to severe respiratory distress and was placed on CPAP by EMS. The patient presented and he was evaluated here. He does not use oxygen at home. When off of oxygen and CPAP here, the patient has oxygen saturations less than 87%. He was placed on BiPAP when his saturations got to 87%. The patient is tachypneic. He appears to be in moderate respiratory distress. The patient does have a fever here today. He was initially hypertensive for EMS with a blood pressure around 220 systolic. After arrival here, the patient had a blood pressure around 90 at one point. His chest x-ray suggested some congestive changes and cardiomegaly but no pneumonia. His CBC was unremarkable. His INR is 5.2. BUN is 21 9 and creatinine is 2.4. This is baseline for the patient's kidney function. Flu swab was negative. Urine did not show infection. The patient was given IV vancomycin, IV Levaquin as well as IV Zosyn. He was given IV Tylenol for his fever and IV fluids 500 cc normal saline was administered. The patient will be seen by the hospitalist for further inpatient evaluation. He remained stable on the BiPAP. His respiratory effort was assisted. The patient may have a pneumonia that is not clearly present on exam. He does have some erythema that of the bilateral lower extremities which appears to be mostly chronic but this could be a cause for his fever as well. Impression & Plan Hypoxia, Sepsis, Pneumonia Critical Care Time I have personally spent greater than 35 minutes of critical care time in the direct management of this patient. This includes bedside care, interpretation of diagnostic studies, and testing, discussion with consultants, patient, and family members, and other required patient management activities. This 35 minutes is in excess of all separately billable procedures. Critical Care Time: Yes Total Critical Care Time: 35 Discharge Plan Visit Data Chief Complaint: Respiratory Distress ED Provider: Moris Garcia Discharge Problem: Hypoxia, Sepsis, Pneumonia Forms Stand Alone Forms: My [facility] Prescriptions Prescriptions: No Action furosemide 40 mg Tablet 80 mg PO QAM RF: 0 atorvastatin 40 mg Tablet 40 mg PO QAM RF: 0 amiodarone 200 mg Tablet 100 mg PO QAM RF: 0 amlodipine 5 mg Tablet 2.5 mg PO QAM RF: 0 aspirin [Aspirin Low Dose] 81 mg Tablet,Delayed Release (Dr/Ec) 40.5 mg PO AMHS RF: 0 isosorbide mononitrate 60 mg Tablet Extended Release 24 Hr 90 mg PO QAM RF: 0 levothyroxine 50 mcg Tablet 50 mcg PO HS RF: 0 metoprolol tartrate 50 mg Tablet 25 mg PO AMHS RF: 0 nitroglycerin 0.4 mg Tablet, Sublingual 0.4 mg Sublingual DIRECTED PRN (Reason: Chest Pain) RF: 0 docusate sodium 100 mg Capsule 100 mg PO AMHS RF: 0 folic acid 1 mg Tablet 1 mg PO QAM RF: 0 lisinopril 40 mg Tablet 40 mg PO QAM RF: 0 Novolog Mix 70-30FlexPen U-100 100 unit/mL (70-30) Insulin Pen 26 units SUBCUT QAM RF: 0 terazosin 2 mg Capsule 2 mg PO HS RF: 0 warfarin 2.5 mg tablet 1 dose PO DIRECTED RF: 0 insulin asp prt-insulin aspart 100 unit/mL (70-30) insulin pen 50 units subcut QDD RF: 0 The scribe's documentation has been prepared under my direction and personally reviewed by me in its entirety. I confirm that the note above accurately reflects all work, treatment, procedures, and medical decision making performed by me.
[2018-06-07] MEDS ORDERED: NITROGLYCERIN SL 0.4 MG/TAB TAB SL PRN (16:02)
[2018-06-07] MEDS: INSULIN 70% ASPART PROTAMINE/30% ASPART SQ SCH (18:07)
[2018-06-07] MEDS: FUROSEMIDE 80 MG in SYRINGE 0 ML IV SCH (18:56)
[2018-06-07] MEDS: AMIODARONE 200 MG TAB PO SCH (18:56)
[2018-06-07] MEDS: METOPROLOL TARTRATE 25 MG TAB PO SCH (20:01)
[2018-06-07] MEDS: DOCUSATE SODIUM 100 MG CAP PO SCH (20:01)
[2018-06-07] MEDS: ASPIRIN 81 MG CHEW PO SCH (20:01)
[2018-06-07] MEDS: TERAZOSIN HCL 1 MG CAP PO SCH (20:01)
--- NOTE | 2018-06-07 20:21 | Pharmacy Report ---
Pharmacy Abx Initial Consult - Date of Service June 07, 2018 - Pharmacy Dosing Scope Date of Consult: 06/07/18 Consultation requested by: Dr. Reyes Pharmacy is consulted to initiate Vancomycin IV dosing therapy, order appropriate labs and adjust drug dose/frequency. - Subjective The patient is a 77 year old M admitted on 06/07/18 13:49. - Objective Height: 5 ft 9 in Weight: 134.1 kg Vital Signs (Past 12hrs): Vital Signs Temp Pulse Pulse Pulse Resp BP BP 06/07/18 19:06 37.3 C 102 H 19 06/07/18 16:04 37.8 C H 73 20 119/68 06/07/18 15:50 36.5 C 72 22 06/07/18 15:30 72 31 H 108/53 L 06/07/18 14:54 37.2 C 06/07/18 14:45 37.2 C 70 33 H 123/59 L 06/07/18 14:31 73 27 H 100/58 L 06/07/18 14:23 73 29 H 98/46 L 06/07/18 14:16 77 24 06/07/18 14:00 77 33 H 93/44 L 06/07/18 13:45 80 27 H 92/44 L 06/07/18 13:30 81 35 H 90/46 L 06/07/18 13:15 81 34 H 96/45 L 06/07/18 13:00 79 34 H 98/48 L 06/07/18 12:45 86 35 H 115/55 L 06/07/18 12:31 103 H 27 H 90/79 L 06/07/18 12:25 108 H 28 H 144/82 H 06/07/18 11:55 06/07/18 11:54 39.0 C H 107 H 38 H 153/104 H BP Pulse Ox 06/07/18 19:06 94 06/07/18 16:04 98 06/07/18 15:50 121/67 99 06/07/18 15:30 97 06/07/18 14:54 06/07/18 14:45 97 06/07/18 14:31 98 06/07/18 14:23 98 06/07/18 14:16 97 06/07/18 14:00 97 06/07/18 13:45 97 03/13/19 13:30 96 06/07/18 13:15 96 06/07/18 13:00 97 06/07/18 12:45 97 06/07/18 12:31 98 06/07/18 12:25 97 06/07/18 11:55 94 06/07/18 11:54 94 Lab Results (24hrs): Laboratory Tests (24 Hours) 06/07/18 06/07/18 06/07/18 12:00 12:00 12:00 WBC 8.82 Neut # (Auto) 7.88 H Creatinine 2.41 H Est Cr Clr Drug Dosing 37.2 Procalcitonin 0.54 H Micro Results: 06/07/18 12:24 Blood Culture - Pending Blood 06/07/18 12:00 Blood Culture - Pending Blood - Risk Factors for Resistance * Hospitalization for 48 hours or more within the past 90 days - recently admitted 05/17-05/20 for respiratory distress and sepsis. * Antimicrobial use within the last 90 days - discharged on 05/20 on Doxycycline 100mg BID X 7days. - Assessment & Plan Assessment 77 year old obese male with PMH of aortic valve replacement, a-fib, T2DM, complaining of feeling unwell and shortness of breath since last evening. Pt received Zosyn 4.5gm IV x1 and Levaquin 750mg IV x1 in the ED. No leukocytosis. Febrile in the ED. Elevated lactic acid (2.18) and procal (0.54). Chest x-ray showed signs of congestive failure/fluid overload but no lobar consolidation. Plan Vancomycin for treatment of possible pulmonary source. Vancomycin IV * Estimated PK Parameters: Vd 0.7 L/kg, [place] 0.035 hr-1, t1/2 19.6 hr * Loading dose: 2500 mg (19 mg/kg) x1 given in the ED. * Maintenance dose: 2000 mg IV (15 mg/kg) every 24 hours * Goal trough level : 15 to 20 mcg/mL * Maintenance dose was timed to begin about 22 hours after loading dose since patient only received a 19mg/kg LD. * Renal function does not appear to be at baseline (SCr = 2.4, baseline appears to be around 1.8-1.9), will order an AM random level in case his renal function starts to improve overnight. * MRSA swab ordered. Pharmacy will continue to follow and will adjust dose/frequency as necessary. Thank you.
[2018-06-08] MEDS: LEVOTHYROXINE SODIUM 50 MCG TABLET PO SCH (06:02)
[2018-06-08 06:16] LABS: Basophils # (auto) 0.02 K/uL (0-0.2); Basophils % (auto) 0.3 %; Eosinophils # (auto) 0.01 K/uL (0-0.5); Eosinophils % (auto) 0.1 %; Hematocrit (blood only) 30.7 % (42-52); Hemoglobin 10.1 g/dL (14.0-18.0); Immature Granulocytes # (auto) 0.01 K/uL (0.00-0.02); Immature Granulocytes % (auto) 0.1 %; Lymphocytes # (auto) 0.83 K/uL (1.2-3.4); Lymphocytes % (auto) 10.7 %; Mean Corpuscular Hgb Conc 32.9 g/dL (32-36); Mean Corpuscular Volume 85.8 fL (80-100); Mean Platelet Volume 10.6 fL (7.4-10.4); Monocytes % (auto) 10.3 %; Neutrophils # (auto) 6.07 K/uL (1.4-6.5); Neutrophils % (auto) 78.5 %; Platelet Count 117 K/uL (130-400); RDW Coefficient of Variation 16.8 % (11.5-14.5); RDW Standard Deviation 52.7 fL (36.4-46.3); Red Blood Count 3.58 M/uL (4.7-6.1); White Blood Count 7.74 K/uL (4.8-10.8)
[2018-06-08 06:37] LABS: Prothrombin Time 46.4 Seconds (9.0-12.0)
[2018-06-08 06:39] LABS: INR 5.1 (0.9-1.1)
[2018-06-08 06:42] LABS: BUN Creatinine Ratio 12.9 (10-20); Calcium 7.5 mg/dl (8.5-10.1); Creatinine Clr Calc Pharmacy 33.5 ml/min; Est GFR (African American) 27.8; Magnesium 1.8 mg/dl (1.8-2.4); Potassium 3.5 mmol/L (3.5-5.1)
[2018-06-08] MEDS ORDERED: INSULIN 70% ASPART PROTAMINE/30% ASPART SQ SCH ×2 (07:30→17:30)
[2018-06-08] MEDS: LISINOPRIL 40 MG TAB PO SCH (08:06)
[2018-06-08] MEDS: FUROSEMIDE 80 MG in SYRINGE 0 ML IV SCH (08:06)
[2018-06-08] MEDS: DOCUSATE SODIUM 100 MG CAP PO SCH ×2 (08:07→21:29)
[2018-06-08] MEDS: ASPIRIN 81 MG CHEW PO SCH ×2 (08:07→21:28)
[2018-06-08] MEDS: AMIODARONE 200 MG TAB PO SCH (08:09)
[2018-06-08] MEDS: METOPROLOL TARTRATE 25 MG TAB PO SCH ×2 (08:09→21:29)
[2018-06-08] MEDS: AMLODIPINE BESYLATE 5 MG TAB PO SCH (08:09)
[2018-06-08] MEDS: FOLIC ACID 1 MG TAB PO SCH (08:10)
[2018-06-08] MEDS: ATORVASTATIN 40 MG TAB PO SCH (08:10)
[2018-06-08] MEDS: ISOSORBIDE MONO EXTENDED REL 30 MG TABCR PO SCH (08:11)
[2018-06-08] MEDS ORDERED: VANCOMYCIN HCL 2,000 MG in SODIUM CHLORIDE 0.9% 500 ML IV SCH (11:00)
[2018-06-08] MEDS: INSULIN 70% ASPART PROTAMINE/30% ASPART SQ SCH (17:28)
--- NOTE | 2018-06-08 19:40 | Hospitalist Progress Note ---
Date of Service June 08, 2018 Assessment & Plan (1) Respiratory failure: (2) CHF exacerbation: Present to the ER with worsening SOB Likely secondary to CHF exacerbation CXR showed pulmonary edema Continue IV lasix 80mg Will monitor BMP while on IV lasix I/O and fluid restriction Clinically improves (3) Hypertensive urgency: BP improves Continue amlodipine and lisinopril Monitor BP (4) S/P aortic valve replacement: Denies any chest pain INR is supratherapeutic INR 5.1 today Coumadin on hold (5) Diabetes type 2, uncontrolled: Continue current dose of insulin Check hemoglobin A1c in am Monitor BS (6) PAF (paroxysmal atrial fibrillation): Heart rate is controlled on amiodarone and beta shiv Has left bundle branch block with associated ST-T wave changes INR was noted to be high at 5.1 Continue holding Coumadin and monitor INR (7) Hyperlipidemia: Continue statin (8) Hypothyroidism: Continue levothyroxine (9) CVD (cardiovascular disease): Continue statin, aspirin Coumadin on hold Stable (10) Fever: Elevated procalcitonin Chest x-ray did not show any pneumonia and no history of bronchitis UA has been unremarkable Has bilateral leg swelling with redness Doubt any sepsis Continue IV abx for now blood cx pending DVT px INR 5.1 Hold coumadin CODE STATUS DNR Subjective pt was seen and examined Pt said that his breathing feels much better He said that he had plan to go gambling this weekend with the family Denies any chest pain, palpitation and dizziness Physical Exam Vital Signs (Past 24 Hours): Last Vital Signs Temp 37.1 C 06/08/18 15:32 Pulse 76 06/08/18 15:32 Resp 17 06/08/18 15:32 BP 144/74 H 06/08/18 15:32 Pulse Ox 94 06/08/18 15:32 Physical Exam: General- No acute distress Head- atraumatic Eyes- PERRL, EOMI, ENT- oropharynx clear Neck- supple, no JVD Lungs- diminished BS Heart- regular rhythm Abdomen- normal bowel sounds, soft, nontender Extremities- no calf tenderness Neuro- alert, oriented x 3; PERRL, EOMI; no facial palsy; no dysarthria Skin- warm & dry (1) CHF exacerbation Heart failure type: unspecified Qualified Code(s): I50.9 - Heart failure, unspecified
[2018-06-08] MEDS: TERAZOSIN HCL 1 MG CAP PO SCH (21:29)
[2018-06-08] MEDS ORDERED: PHARMACY GLYCEMIC MGMT CONSULT PRN (21:37)
[2018-06-08] MEDS ORDERED: INSULIN ASPART 100 UNITS/ML 3 ML PEN SC ONE (21:45)
[2018-06-09] MEDS: INSULIN ASPART 100 UNITS/ML 3 ML PEN SC SCH ×6 (01:11→21:21)
[2018-06-09] MEDS: LEVOTHYROXINE SODIUM 50 MCG TABLET PO SCH (04:45)
[2018-06-09 07:32] LABS: Basophils # (auto) 0.03 K/uL (0-0.2); Basophils % (auto) 0.3 %; Eosinophils # (auto) 0.16 K/uL (0-0.5); Eosinophils % (auto) 1.8 %; Hematocrit (blood only) 30.1 % (42-52); Hemoglobin 9.6 g/dL (14.0-18.0); Immature Granulocytes # (auto) 0.02 K/uL (0.00-0.02); Immature Granulocytes % (auto) 0.2 %; Lymphocytes # (auto) 1.22 K/uL (1.2-3.4); Lymphocytes % (auto) 13.6 %; Mean Corpuscular Hgb Conc 31.9 g/dL (32-36); Mean Corpuscular Volume 84.8 fL (80-100); Mean Platelet Volume 10.4 fL (7.4-10.4); Monocytes # (auto) 1.11 K/uL (0.11-0.59); Monocytes % (auto) 12.4 %; Neutrophils % (auto) 71.7 %; Platelet Count 122 K/uL (130-400); RDW Coefficient of Variation 16.7 % (11.5-14.5); RDW Standard Deviation 51.8 fL (36.4-46.3); Red Blood Count 3.55 M/uL (4.7-6.1); White Blood Count 8.94 K/uL (4.8-10.8)
[2018-06-09 07:41] LABS: INR 2.8 (0.9-1.1); Prothrombin Time 26.3 Seconds (9.0-12.0)
[2018-06-09 08:08] LABS: BUN Creatinine Ratio 14.9 (10-20); Creatinine Clr Calc Pharmacy 36.2 ml/min; Est GFR (African American) 30.4; Est GFR (Non-African American) 26.3; Potassium 3.4 mmol/L (3.5-5.1)
[2018-06-09] MEDS: ATORVASTATIN 40 MG TAB PO SCH (08:08)
[2018-06-09] MEDS: FUROSEMIDE 80 MG in SYRINGE 0 ML IV SCH (08:08)
[2018-06-09] MEDS: AMIODARONE 200 MG TAB PO SCH (08:09)
[2018-06-09] MEDS: FOLIC ACID 1 MG TAB PO SCH (08:09)
[2018-06-09] MEDS: METOPROLOL TARTRATE 25 MG TAB PO SCH ×2 (08:09→21:23)
[2018-06-09] MEDS: ASPIRIN 81 MG CHEW PO SCH ×2 (08:09→21:21)
[2018-06-09] MEDS: ISOSORBIDE MONO EXTENDED REL 30 MG TABCR PO SCH (08:09)
[2018-06-09] MEDS: DOCUSATE SODIUM 100 MG CAP PO SCH ×2 (08:09→21:22)
[2018-06-09] MEDS: AMLODIPINE BESYLATE 5 MG TAB PO SCH (08:10)
[2018-06-09] MEDS: LISINOPRIL 40 MG TAB PO SCH (08:10)
[2018-06-09 08:15] LABS: Estimated Average Glucose 200 mg/dl; Hemoglobin A1C 8.6 % (4.5-5.6)
[2018-06-09] MEDS ORDERED: PERFLUTREN LIPID MICROSPHERE (DEFINITY) IV ONE (08:43)
[2018-06-09] MEDS ORDERED: INSULIN GLARGINE SOLOSTAR 100 UNITS/ML 3 ML PEN SC SCH (09:00)
[2018-06-09] MEDS ORDERED: POTASSIUM CHLORIDE 10 MEQ TABCR PO STA (09:52)
--- NOTE | 2018-06-09 10:36 | Infectious Disease Consult ---
Date of Consultation June 09, 2018 Assessment & Plan (1) Sepsis due to group B Streptococcus: will continue vanco for now, maintain trough 15-20. Await final sensitivities. repeat cultures pending, will follow. echo done, await results. due to ckd will await addition of any further abx, if found to have veg will likely need gent as well and potential transfer. (2) Septicemia due to group B Streptococcus: History of Present Illness Attending Physician: Amee Pate MD pt admitted with fever 103+ at home and SOB. CXR with CHF, no infiltrtate, tmax 38.4 since admission, currently afebrile. wbc nml but procalcitonin mildly elevated. Pt given levaquin, zosyn and vanco in ER, blood cultures done, now growing GBS in 2/2 sets from 06/07, repeat cultures on 06/08, 1/2 sets with gpc, 06/09 cultures pending. Pt now on vanco, has CKD, creat 2.4 - baseline. tolerating abx well. on my exam today, he is OOB to chair. Denies cp, sob, cough, breathing much improved. no abd pain, no n/v/d. no le pain. denies skin lesions/cuts. has chronic edema b/l legs, no pain, no open wounds. per nursing excorations on abd/pannus - pt states improved, no pain, no open wounds no drainage. h/o mechanical valve, on coumadin, INF >5 on admission. Echo done today - results pending. afebrile currently, eating well. Allergies Allergy/AdvReac Type Severity Reaction Status Date / Time No Known Allergies Allergy Unverified 03/01/18 23:30 Home Medications Home Medications Medication Instructions Recorded Confirmed Type Novolog Mix 70-30FlexPen U-100 26 units SUBCUT QA 02/23/18 06/07/18 History amiodarone 100 mg PO QAM 02/23/18 06/07/18 History amlodipine 2.5 mg PO QAM 02/23/18 06/07/18 History aspirin [Aspirin Low Dose] 40.5 mg PO AMHS 02/23/18 06/07/18 History atorvastatin 40 mg PO QAM 02/23/18 06/07/18 History docusate sodium 100 mg PO AMHS 02/23/18 06/07/18 History folic acid 1 mg PO QAM 02/23/18 06/07/18 History furosemide 80 mg PO QAM 02/23/18 06/07/18 History isosorbide mononitrate 90 mg PO QAM 02/23/18 06/07/18 History levothyroxine 50 mcg PO HS 02/23/18 06/07/18 History lisinopril 40 mg PO QAM 02/23/18 06/07/18 History metoprolol tartrate 25 mg PO AMHS 02/23/18 06/07/18 History nitroglycerin 0.4 mg SUBLINGUAL DIRECTED PRN 02/23/18 06/07/18 History terazosin 2 mg PO HS 02/24/18 06/07/18 History warfarin 1 dose PO DIRECTED 03/01/18 06/07/18 History insulin asp prt-insulin aspart 50 units SUBCUT QDD 05/18/18 06/07/18 History Patient History Medical History CVA (cerebral vascular accident) (Acute) CHF (congestive heart failure) (Chronic) HTN (hypertension) (Chronic) Coronary artery disease Family History Other No pertinent family history Social History Preferred Language: Portuguese Communication Ability: Effective Backhaul Driver Required: No Beliefs That Will Affect Care: Rastafarian marital status: Current Living Situation: Spouse Current Living Situation Comment: Patient stated, he " lived at home with his " Other Information That Helps Us Care for You: No Feels Safe at Home: Yes Safety Concerns: Feels Safe At This Time Smoking Status: Current every day smoker Hx Alcohol Use: No Hx Substance Use: No Review of Systems all remaining ros reviewed and are negative Physical Exam Vital Signs (Past 24 Hours): Last Vital Signs Temp 37.0 C 06/09/18 07:47 Pulse 75 06/09/18 07:47 Resp 20 06/09/18 07:47 BP 123/49 L 06/09/18 07:47 Pulse Ox 92 06/09/18 07:47 Constitutional: WD/WN, vitals as above Eyes: PERRL, conjunctivae normal, anicteric sclerae ENMT: external ear and nose normal, oropharynx normal Neck: normal visual inspection Respiratory: normal respiratory effort, lungs clear to auscultation Cardiovascular: Rate/Rhythm: regular rate Heart Sounds: + murmur Gastrointestinal (Abdomen): normal bowel sounds, soft, nontender, no hepatospl enomegaly Musculoskeletal: no cyanosis or clubbing, extremities motor strength 5/5 Skin: no rashes, warm and dry chronic stasis changes noted b/l le, edema b/l le L>R, non tender, no warmth, no erythema, no open areas no rash noted on abd but exam limited due to patient sitting up in chair. Psychiatric: A+Ox3, euthymic affect Results & Data Laboratory Results Microbiology 06/08/18 05:41 Blood Blood Culture - Preliminary Gram positive cocci 06/07/18 12:24 Blood Blood Culture - Preliminary Group B Beta Strep 06/07/18 12:00 Blood Blood Culture - Preliminary Group B Beta Strep
--- NOTE | 2018-06-09 11:22 | Pharmacy Report ---
Pharmacy Abx Dose Short Note - Date of Service June 09, 2018 - Assessment & Plan A/p Pt's vanco lvl after only two doses is 15.6mcg/mL. Given his h/o CKD and habitus he is at a significant risk of vanco toxicity. Will decrease vanco dose to 1750mg (13mg/kg) q24 and order a trough tomorrow, 06/10 @1045. He is growing group b strep in 2/2 blood bottles. Recommend changing to a penicillin or aminopencillin given that vanco is NOT the preferred again. Pharmacy will continue to follow and will adjust dose/frequency as necessary. Thank you.
[2018-06-09] MEDS: VANCOMYCIN HCL 1,750 MG in SODIUM CHLORIDE 0.9% 500 ML IV SCH (11:34)
--- NOTE | 2018-06-09 14:00 | Pharmacy Report ---
Glycemic Control Consultation - Date of Service June 09, 2018 - Scope Scope: Glycemic Pharmacist consulted by Dr Holly on 06/09/18 for glycemic control and to write orders per [facility] inpatient glycemic control protocol - Objective Weight: 132.7 kg Accuchecks BSG (last 24hrs): 06/08/18 06/08/18 06/09/18 16:16 20:46 01:06 Glucose POC Glucose 152 H 209 H 165 H 06/09/18 06/09/18 06/09/18 04:02 07:08 07:22 Glucose 116 H POC Glucose 127 H 123 H 06/09/18 10:51 Glucose POC Glucose 210 H Laboratory Data (last 24hrs): 06/09/18 07:08 Potassium 3.4 L Carbon Dioxide 30 Anion Gap 5.0 Creatinine 2.31 H Est Cr Clr Drug Dosing 36.2 HbA1c: Hemoglobin A1c 8.6 % (4.5-5.6) H 06/09/18 07:08 - Recent Pertinent Medications Outpatient Anti-diabetic Regimen: * 70/30 26units Breakfast and 50units with dinner * A1c = 8.6 % 06/09/18 - Assessment & Plan Assessment & Plan: ASSESSMENT: * Mr. Bartlett is a 77yo M unbeknownst to the pharmacy glycemic. PMHx consistent with CHF, HTN, AF, DM-II, CKD. He is maintained on 70/30 premixed insulin as an outpt. Outpt glycemic management is adequate (pursuant to his age and co- morbidities) as evidenced by his A1C of 8.6%. * 70/30 pre-mixed insulin is not recommended in the inpt setting due to fluctuating PO status. Will convert him over to lantus/novolog for his stay. PLAN FOR INPATIENT GLYCEMIC CONTROL: * Basal insulin * Lantus scale BID * give 20 units for BSGs <140mg/dL * give 25 units for BSGs 140-180mg/dL * give 30 units for BSGs > 180mg/dL * Bolus insulin * NovoLog per scale ACHS or Q6hrs while NPO * Goal Range: Low 110 mg/dL - High 140 mg/dL * Correction Factor: 20 mg/dL/unit * Nutritional / Prandial insulin per carb ratio of 1 unit per 6 grams CHO consumed * Please note that the plan above was derived based on current level of insulin resistance and hospital stress. These recommendations are appropriate for inpatient admission only. Plan of care upon discharge will need to be reassessed to avoid potential outpatient hypo/hyperglycemia. Thank you.
--- NOTE | 2018-06-09 19:36 | Hospitalist Progress Note ---
Date of Service June 09, 2018 Assessment & Plan (1) Septicemia due to group B Streptococcus: Repeat blood cx positive for gram positive cocci (Group B beta strep) ID on board On IV Vanco Echo could not r/o any vegetation Follow up repeat cx Will adjust abx Will talk to cardiology for possible TENNILLE on Tuesday since pt had a prosthetic valve (2) Respiratory failure: (3) CHF exacerbation: Present to the ER with worsening SOB Likely secondary to CHF exacerbation CXR showed pulmonary edema Continue IV lasix 80mg Continue monitor BMP while on IV lasix I/O and fluid restriction Clinically improves (4) Hypertensive urgency: BP improves Continue amlodipine and lisinopril Monitor BP (5) S/P aortic valve replacement: Denies any chest pain INR is supratherapeutic INR 2.8 today continue coumadin Monitor PT/INR (6) Diabetes type 2, uncontrolled: Continue current dose of insulin Hemoglobin A1c 8.6 Monitor BS (7) PAF (paroxysmal atrial fibrillation): Heart rate is controlled on amiodarone and beta shiv Has left bundle branch block with associated ST-T wave changes INR was noted to be high at 5.1 Continue coumadin INR 2.8 (8) Hyperlipidemia: Continue statin (9) Hypothyroidism: Continue levothyroxine (10) CVD (cardiovascular disease): Continue statin, aspirin Continue coumadin Stable (11) Fever: Elevated procalcitonin Chest x-ray did not show any pneumonia and no history of bronchitis UA has been unremarkable Has bilateral leg swelling with redness Doubt any sepsis Continue IV abx for now blood cx positive for group b beta strep DVT px INR 2.8 Continue coumadin CODE STATUS DNR Subjective Pt was seen and examined Lying in bed with no distress Pt said that his breathing improves Denies any complaint Physical Exam Vital Signs (Past 24 Hours): Last Vital Signs Temp 37.0 C 06/09/18 15:11 Pulse 71 06/09/18 15:50 Resp 18 06/09/18 15:11 BP 152/84 H 06/09/18 15:11 Pulse Ox 94 06/09/18 15:11 Physical Exam: General- No acute distress Head- atraumatic Eyes- PERRL, EOMI, ENT- oropharynx clear Neck- supple, no JVD Lungs- diminished BS Heart- regular rhythm Abdomen- normal bowel sounds, soft, nontender Extremities- no calf tenderness Neuro- alert, oriented x 3; PERRL, EOMI; no facial palsy; no dysarthria Skin- warm & dry (1) CHF exacerbation Heart failure type: unspecified Qualified Code(s): I50.9 - Heart failure, unspecified
[2018-06-09] MEDS: INSULIN GLARGINE SOLOSTAR 100 UNITS/ML 3 ML PEN SC SCH (21:19)
[2018-06-09] MEDS: TERAZOSIN HCL 1 MG CAP PO SCH (21:23)
[2018-06-10] MEDS: LEVOTHYROXINE SODIUM 50 MCG TABLET PO SCH (05:44)
[2018-06-10] MEDS: AMLODIPINE BESYLATE 5 MG TAB PO SCH (07:52)
[2018-06-10] MEDS: ISOSORBIDE MONO EXTENDED REL 30 MG TABCR PO SCH (07:52)
[2018-06-10] MEDS: METOPROLOL TARTRATE 25 MG TAB PO SCH ×2 (07:52→22:00)
[2018-06-10] MEDS: ATORVASTATIN 40 MG TAB PO SCH (07:52)
[2018-06-10] MEDS: DOCUSATE SODIUM 100 MG CAP PO SCH ×2 (07:52→21:59)
[2018-06-10] MEDS: LISINOPRIL 40 MG TAB PO SCH (07:53)
[2018-06-10] MEDS: FOLIC ACID 1 MG TAB PO SCH (07:53)
[2018-06-10] MEDS: ASPIRIN 81 MG CHEW PO SCH ×2 (07:53→22:01)
[2018-06-10] MEDS: FUROSEMIDE 80 MG in SYRINGE 0 ML IV SCH (07:53)
[2018-06-10] MEDS: AMIODARONE 200 MG TAB PO SCH (07:53)
[2018-06-10] MEDS: INSULIN ASPART 100 UNITS/ML 3 ML PEN SC SCH ×4 (07:55→21:54)
[2018-06-10] MEDS: INSULIN GLARGINE SOLOSTAR 100 UNITS/ML 3 ML PEN SC SCH ×2 (07:56→21:55)
[2018-06-10 08:03] LABS: Creatinine Clr Calc Pharmacy 39.4 ml/min; Est GFR (African American) 33.8; Est GFR (Non-African American) 29.1
[2018-06-10 09:34] LABS: Hematocrit (blood only) 29.4 % (42-52); Hemoglobin 9.5 g/dL (14.0-18.0); Mean Corpuscular Hgb Conc 32.3 g/dL (32-36); Mean Corpuscular Volume 84.7 fL (80-100); Mean Platelet Volume 10.5 fL (7.4-10.4); Platelet Count 129 K/uL (130-400); RDW Coefficient of Variation 16.6 % (11.5-14.5); RDW Standard Deviation 51.6 fL (36.4-46.3); Red Blood Count 3.47 M/uL (4.7-6.1)
[2018-06-10 09:54] LABS: INR 1.9 (0.9-1.1); Prothrombin Time 18.5 Seconds (9.0-12.0)
[2018-06-10] MEDS ORDERED: VANCOMYCIN TROUGH ONE (10:45)
[2018-06-10] MEDS: VANCOMYCIN HCL 1,750 MG in SODIUM CHLORIDE 0.9% 500 ML IV SCH (11:27)
--- NOTE | 2018-06-10 13:42 | Pharmacy Report ---
Pharmacy Glycemic Short Note 2 - Date of Service June 10, 2018 - Glycemic Short BSG Results (Last 24 hours): 06/09/18 06/09/18 06/10/18 16:11 20:23 07:21 POC Glucose 126 H 172 H 146 H 06/10/18 11:10 POC Glucose 169 H ASSESSMENT: * BSGs look good over the preceding 24 hrs: [phone]/dL. Will continue with standing orders barring any acute changes in insulin requirements. PLAN FOR INPATIENT GLYCEMIC CONTROL: * Basal insulin * Lantus scale SQ bid * give 20units BSGs<160mg/dL * give 25units BSGs >/=160mg/dL * Bolus insulin * NovoLog per scale ACHS or Q6hrs while NPO * Goal Range: Low 110 mg/dL - High 140 mg/dL * Correction Factor: 20 mg/dL/unit * Nutritional / Prandial insulin per carb ratio of 1 unit per 6 grams CHO consumed
[2018-06-10] MEDS: WARFARIN SOD 3 MG TAB PO SCH (15:39)
--- NOTE | 2018-06-10 15:43 | Pharmacy Report ---
Pharmacy Abx Dose Short Note - Date of Service June 10, 2018 - Assessment & Plan Assessment 77 year old M receiving Vancomycin for treatment of Bacteremia with Group B Beta Strep. Day # 4 of antimicrobial therapy. Sensitivities for Group B Beta strep show wiggins-sensitive to all antibiotics in cluding Penicillins. Patient's antibiotic therapy could be de-escalated from Vanco to Penicillin based on this. New blood cultures were drawn today, results pending. Laboratory Tests 06/10/18 10:41 Vancomycin Trough 17.9 Plan Vancomycin * Trough level of 17.9 mcg/mL is therapeutic. * Continue dose of Vancomycin 1750 mg IV every 24 hours if not changed changed to different antibiotic. * Goal trough level for bacteremia: 15 to 20 mcg/mL * Will order a new trough Vanco level in around 3 days to make sure patient is not accumulating due to his BMI = 43.2 kg/m2 Pharmacy will continue to follow and will adjust dose/frequency as necessary. Thank you.
--- NOTE | 2018-06-10 19:10 | Hospitalist Progress Note ---
Date of Service June 10, 2018 Assessment & Plan (1) Septicemia due to group B Streptococcus: Repeat blood cx positive for gram positive cocci (Group B beta strep) ID on board On IV Vanco Echo could not r/o any vegetation Follow up repeat cx Will adjust abx Will talk to cardiology for possible TENNILLE on Tuesday since pt had a prosthetic valve (2) Respiratory failure: Admitted with Lin respiratory failure with profound hypoxemia he Likely secondary to CHF exacerbation Has been on BiPAP and getting better ABG did not show any significant CO2 retention We will continue with oxygen as needed (3) CHF exacerbation: Present to the ER with worsening SOB Likely secondary to CHF exacerbation CXR showed pulmonary edema Continue IV lasix 80mg Continue monitor BMP while on IV lasix I/O and fluid restriction Clinically improves (4) Hypertensive urgency: BP improves Continue amlodipine and lisinopril Monitor BP (5) S/P aortic valve replacement: Denies any chest pain INR is supratherapeutic INR 1.9 today continue coumadin Consider to start on heparin drip until INR therapeutic Monitor PT/INR (6) Diabetes type 2, uncontrolled: Continue current dose of insulin Hemoglobin A1c 8.6 Monitor BS (7) PAF (paroxysmal atrial fibrillation): Heart rate is controlled on amiodarone and beta shiv Has left bundle branch block with associated ST-T wave changes INR was noted to be high at 5.1 Continue coumadin INR 1.9 will add on heparin drip until INR therapeutic (8) Hyperlipidemia: Continue statin (9) Hypothyroidism: Continue levothyroxine (10) CVD (cardiovascular disease): Continue statin, aspirin Continue coumadin Stable (11) Fever: Elevated procalcitonin Chest x-ray did not show any pneumonia and no history of bronchitis UA has been unremarkable Has bilateral leg swelling with redness Doubt any sepsis Continue IV abx for now blood cx positive for group b beta strep DVT px INR 1.9 Continue coumadin Will add heparin drip CODE STATUS DNR Subjective Pt was seen and examined Lying in bed with no distress Pt said that his breathing feels much better Denies any chest pain, palpitation and fever Physical Exam Vital Signs (Past 24 Hours): Last Vital Signs Temp 36.4 C L 06/10/18 15:29 Pulse 67 06/10/18 15:29 Resp 18 06/10/18 15:29 BP 131/72 06/10/18 15:29 Pulse Ox 94 06/10/18 15:29 Physical Exam: General- No acute distress Head- atraumatic Eyes- PERRL, EOMI, ENT- oropharynx clear Neck- supple, no JVD Lungs- diminished BS Heart- regular rhythm Abdomen- normal bowel sounds, soft, nontender Extremities- no calf tenderness, +edema Neuro- alert, oriented x 3; PERRL, EOMI; no facial palsy; no dysarthria Skin- warm & dry (1) CHF exacerbation Heart failure type: unspecified Qualified Code(s): I50.9 - Heart failure, unspecified
[2018-06-10] MEDS: HEPARIN SOD 5,000 UNIT/0.5 ML VIAL SQ SCH (21:56)
[2018-06-10] MEDS: TERAZOSIN HCL 1 MG CAP PO SCH (21:59)
[2018-06-11] MEDS: HEPARIN SOD 5,000 UNIT/0.5 ML VIAL SQ SCH (06:24)
[2018-06-11] MEDS: LEVOTHYROXINE SODIUM 50 MCG TABLET PO SCH (06:25)
[2018-06-11 07:11] LABS: Hematocrit (blood only) 30.6 % (42-52); Hemoglobin 9.8 g/dL (14.0-18.0); Mean Corpuscular Volume 85.2 fL (80-100); Mean Platelet Volume 10.5 fL (7.4-10.4); Platelet Count 150 K/uL (130-400); RDW Coefficient of Variation 16.5 % (11.5-14.5); RDW Standard Deviation 52.3 fL (36.4-46.3); Red Blood Count 3.59 M/uL (4.7-6.1); White Blood Count 8.21 K/uL (4.8-10.8)
[2018-06-11 07:22] LABS: Prothrombin Time 19.1 Seconds (9.0-12.0)
--- NOTE | 2018-06-11 07:22 | Infectious Disease Progress Nt ---
Date of Service June 11, 2018 Assessment & Plan (1) Sepsis due to group B Streptococcus: will change to rocephin repeat cultures pending, will follow. echo done, await results. due to ckd will await addition of any further abx, if found to have veg will likely need gent as well and potential transfer. (2) Septicemia due to group B Streptococcus: Subjective blood cultures growing pansensitive GBS. remains on vanco, 06/10 cultures pending, all previous cultures + tolerating abx. afebrile. TTE negative, for TENNILLE in am. Physical Exam Vital Signs (Past 24 Hours): Last Vital Signs Temp 36.5 C 06/11/18 03:48 Pulse 76 06/11/18 03:48 Resp 22 06/11/18 03:48 BP 156/77 H 06/11/18 03:48 Pulse Ox 94 06/11/18 03:48 Results & Data Laboratory Results Microbiology 06/09/18 07:33 Blood Blood Culture - Preliminary No growth to date. 06/08/18 05:56 Blood Blood Culture - Preliminary No growth to date. 06/09/18 07:08 Blood Blood Culture - Preliminary Gram positive cocci 06/07/18 12:24 Blood Blood Culture - Final Group B Beta Strep 06/07/18 12:00 Blood Blood Culture - Final Group B Beta Strep 06/08/18 05:41 Blood Blood Culture - Preliminary Group B Beta Strep
[2018-06-11 07:43] LABS: BUN Creatinine Ratio 18.6 (10-20); Est GFR (African American) 39.6; Est GFR (Non-African American) 34.1; Potassium 3.7 mmol/L (3.5-5.1)
[2018-06-11 07:44] LABS: Calcium 7.9 mg/dl (8.5-10.1)
[2018-06-11] MEDS ORDERED: GLUCAGON FOR INJ 1 MG VIAL IM PRN (07:45)
[2018-06-11] MEDS ORDERED: GLUCOSE 40% GEL 15 GM TUBE PO PRN (07:45)
[2018-06-11] MEDS ORDERED: DEXTROSE 50% 50 ML SYRINGE IV PRN (07:45)
[2018-06-11] MEDS ORDERED: CARBOHYDRATES FOR HYPOGLYCEMIA PO PRN (07:45)
[2018-06-11] MEDS ORDERED: GLUCOSE 10 TABS/TUBE PO PRN (07:45)
[2018-06-11] MEDS: AMLODIPINE BESYLATE 5 MG TAB PO SCH (08:08)
[2018-06-11] MEDS: AMIODARONE 200 MG TAB PO SCH (08:09)
[2018-06-11] MEDS: DOCUSATE SODIUM 100 MG CAP PO SCH ×2 (08:10→20:03)
[2018-06-11] MEDS: FOLIC ACID 1 MG TAB PO SCH (08:10)
[2018-06-11] MEDS: METOPROLOL TARTRATE 25 MG TAB PO SCH ×2 (08:10→20:03)
[2018-06-11] MEDS: ISOSORBIDE MONO EXTENDED REL 30 MG TABCR PO SCH (08:11)
[2018-06-11] MEDS: LISINOPRIL 40 MG TAB PO SCH (08:11)
[2018-06-11] MEDS: ATORVASTATIN 40 MG TAB PO SCH (08:11)
[2018-06-11] MEDS: ASPIRIN 81 MG CHEW PO SCH ×2 (08:16→20:03)
[2018-06-11] MEDS: INSULIN ASPART 100 UNITS/ML 3 ML PEN SC SCH ×5 (08:19→20:53)
[2018-06-11] MEDS: INSULIN GLARGINE SOLOSTAR 100 UNITS/ML 3 ML PEN SC SCH ×3 (08:24→20:52)
[2018-06-11] MEDS: cefTRIAXone SODIUM 2,000 MG in DEXTROSE 5% 50 ML IV SCH (09:19)
[2018-06-11] MEDS: FUROSEMIDE 80 MG in SYRINGE 0 ML IV SCH (09:19)
--- NOTE | 2018-06-11 11:10 | Pharmacy Report ---
Pharmacy Glycemic Short Note 2 - Date of Service June 11, 2018 - Glycemic Short BSG Results (Last 24 hours): 06/10/18 06/10/18 06/10/18 11:10 16:31 20:31 Glucose POC Glucose 169 H 149 H 216 H 06/11/18 06/11/18 06:57 07:37 Glucose 107 H POC Glucose 125 H ASSESSMENT: * Mr. Bartlett's BSGs continue to be in fine order, other than some hyperglycemia @ HS. Will continue with standing insulin orders, I don't anticipate any acute changes in his insulin requirements. PO intake remains stable. PLAN FOR INPATIENT GLYCEMIC CONTROL: * Basal insulin * Lantus scale SQ bid * give 20units BSGs<160mg/dL * give 25units BSGs >/=160mg/dL * Bolus insulin * NovoLog per scale ACHS or Q6hrs while NPO * Goal Range: Low 110 mg/dL - High 140 mg/dL * Correction Factor: 20 mg/dL/unit * Nutritional / Prandial insulin per carb ratio of 1 unit per 6 grams CHO consumed
[2018-06-11] MEDS: WARFARIN SOD 3 MG TAB PO SCH (17:16)
--- NOTE | 2018-06-11 19:18 | Hospitalist Progress Note ---
Date of Service June 11, 2018 Assessment & Plan (1) Septicemia due to group B Streptococcus: Blood cx on 06/07 and 06/08 positive for gram positive cocci (Group B beta strep) Repeat blood cx on 06/10 no growth ID on board changed IV vanco to Rocephin 2g IV daily Echo could not r/o any vegetation Follow up repeat cx Will talk to cardiology for possible TENNILLE on Tuesday since pt had a prosthetic valve (2) Respiratory failure: Admitted with Lin respiratory failure with profound hypoxemia he Likely secondary to CHF exacerbation Has been on BiPAP and getting better ABG did not show any significant CO2 retention We will continue with oxygen as needed (3) CHF exacerbation: Present to the ER with worsening SOB Likely secondary to CHF exacerbation CXR showed pulmonary edema Continue IV lasix 80mg Continue monitor BMP while on IV lasix I/O and fluid restriction Clinically improves (4) Hypertensive urgency: BP improves Continue amlodipine and lisinopril Monitor BP (5) S/P aortic valve replacement: Denies any chest pain INR is supratherapeutic INR 2.8 today continue coumadin Monitor PT/INR (6) Diabetes type 2, uncontrolled: Continue current dose of insulin Hemoglobin A1c 8.6 Monitor BS (7) PAF (paroxysmal atrial fibrillation): Heart rate is controlled on amiodarone and beta shiv Has left bundle branch block with associated ST-T wave changes INR was noted to be high at 5.1 Continue coumadin INR 2 (8) Hyperlipidemia: Continue statin (9) Hypothyroidism: Continue levothyroxine (10) CVD (cardiovascular disease): Continue statin, aspirin Continue coumadin Stable (11) Fever: Elevated procalcitonin Chest x-ray did not show any pneumonia and no history of bronchitis UA has been unremarkable Has bilateral leg swelling with redness Doubt any sepsis Continue IV abx for now blood cx positive for group b beta strep CKD stage 3 Creatinine improves to 1.8 stable Monitor BMP DVT px INR 2 Continue coumadin CODE STATUS DNR Disposition Continue monitor in tele Subjective Pt was seen and examined Lying in bed with no distress Pt said that he feels much better He said that he is breathing feels much better Denies any chest pain, palpitation, dizziness and SOB Physical Exam Vital Signs (Past 24 Hours): Last Vital Signs Temp 37 C 06/11/18 15:48 Pulse 67 06/11/18 15:48 Resp 20 06/11/18 15:48 BP 145/76 H 06/11/18 15:48 Pulse Ox 93 06/11/18 15:48 Physical Exam: General- No acute distress Head- atraumatic Eyes- PERRL, EOMI, ENT- oropharynx clear Neck- supple, no JVD Lungs- diminished BS Heart- regular rhythm Abdomen- normal bowel sounds, soft, nontender Extremities- no calf tenderness, +edema Neuro- alert, oriented x 3; PERRL, EOMI; no facial palsy; no dysarthria Skin- warm & dry (1) CHF exacerbation Heart failure type: unspecified Qualified Code(s): I50.9 - Heart failure, unspecified
[2018-06-11] MEDS: TERAZOSIN HCL 1 MG CAP PO SCH (20:03)
[2018-06-12] MEDS: LEVOTHYROXINE SODIUM 50 MCG TABLET PO SCH (05:01)
[2018-06-12 06:55] LABS: BUN Creatinine Ratio 17.2 (10-20); Creatinine Clr Calc Pharmacy 48.9 ml/min; Est GFR (African American) 44.4; Est GFR (Non-African American) 38.3; Potassium 3.7 mmol/L (3.5-5.1)
[2018-06-12 07:07] LABS: INR 1.9 (0.9-1.1); Prothrombin Time 18.8 Seconds (9.0-12.0)
[2018-06-12] MEDS: ASPIRIN 81 MG CHEW PO SCH ×2 (08:17→19:37)
[2018-06-12] MEDS: DOCUSATE SODIUM 100 MG CAP PO SCH ×2 (08:17→19:37)
[2018-06-12] MEDS: FUROSEMIDE 80 MG in SYRINGE 0 ML IV SCH (08:18)
[2018-06-12] MEDS: ATORVASTATIN 40 MG TAB PO SCH (08:18)
[2018-06-12] MEDS: FOLIC ACID 1 MG TAB PO SCH (08:18)
[2018-06-12] MEDS: ISOSORBIDE MONO EXTENDED REL 30 MG TABCR PO SCH (08:18)
[2018-06-12] MEDS: AMIODARONE 200 MG TAB PO SCH (08:18)
[2018-06-12] MEDS: METOPROLOL TARTRATE 25 MG TAB PO SCH ×2 (08:18→19:36)
[2018-06-12] MEDS: AMLODIPINE BESYLATE 5 MG TAB PO SCH (08:18)
[2018-06-12] MEDS: LISINOPRIL 40 MG TAB PO SCH (08:19)
[2018-06-12] MEDS: INSULIN ASPART 100 UNITS/ML 3 ML PEN SC SCH ×4 (08:21→20:32)
[2018-06-12] MEDS: INSULIN GLARGINE SOLOSTAR 100 UNITS/ML 3 ML PEN SC SCH ×2 (08:22→20:33)
[2018-06-12] MEDS: cefTRIAXone SODIUM 2,000 MG in DEXTROSE 5% 50 ML IV SCH (08:40)
--- NOTE | 2018-06-12 11:10 | Infectious Disease Progress Nt ---
Date of Service June 12, 2018 Assessment & Plan (1) Sepsis due to group B Streptococcus: continue rocephin repeat cultures negative to date will follow. echo done, negtive but due to multiple cultures + would benefit from TENNILLE, discussed with primary. due to ckd will await addition of any further abx, if found to have veg will likely need gent as well and potential transfer. (2) Septicemia due to group B Streptococcus: Subjective blood cultures from 06/10 negative to date. remains on ctx, tolerating well. denies f/c. no cp, sob, cough. denies abd pain, no n/v/d. afebrile. TTE negative, creat remains elevated, 1.6 today. 06/07, 06/08, 06/09 cutlures + GBS. For TENNILLE. all remaining ros reviewed and are negative Physical Exam Vital Signs (Past 24 Hours): Last Vital Signs Temp 37.5 C 06/12/18 06:43 Pulse 92 H 06/12/18 06:43 Resp 26 H 06/12/18 06:43 BP 166/80 H 06/12/18 06:43 Pulse Ox 94 06/12/18 06:43 Constitutional: WD/WN, vitals as above Eyes: PERRL, conjunctivae normal, anicteric sclerae ENMT: external ear and nose normal, oropharynx normal Neck: normal visual inspection Respiratory: normal respiratory effort, lungs clear to auscultation Cardiovascular: Rate/Rhythm: regular rate Heart Sounds: + murmur Gastrointestinal (Abdomen): normal bowel sounds, soft, nontender, no hepatosplenomegaly Musculoskeletal: no cyanosis or clubbing, extremities motor strength 5/5 Skin: no rashes, warm and dry Psychiatric: A+Ox3, euthymic affect Results & Data Laboratory Results Microbiology 06/10/18 07:14 Blood Blood Culture - Preliminary No growth to date. 06/10/18 07:01 Blood Blood Culture - Preliminary No growth to date. 06/09/18 07:08 Blood Blood Culture - Preliminary Group B Beta Strep 06/09/18 07:33 Blood Blood Culture - Preliminary No growth to date. 06/08/18 05:56 Blood Blood Culture - Preliminary No growth to date. 06/07/18 12:24 Blood Blood Culture - Final Group B Beta Strep 06/07/18 12:00 Blood Blood Culture - Final Group B Beta Strep 06/08/18 05:41 Blood Blood Culture - Preliminary Group B Beta Strep
--- NOTE | 2018-06-12 11:14 | Pharmacy Report ---
Pharmacy Glycemic Short Note 2 - Date of Service June 12, 2018 - Glycemic Short BSG Results (Last 24 hours): 06/11/18 06/11/18 06/11/18 11:31 16:31 20:39 Glucose POC Glucose 192 H 162 H 200 H 06/12/18 06/12/18 05:59 07:27 Glucose 127 H POC Glucose 130 H Outpatient regimen * Novolog 70/30, 26 units at breakfast, 50 units at dinner ASSESSMENT: * BSG's ranging 125-200 mg/dL over the last 24 hours - two of the three post- prandial BSG's are >180 mg/dL. Will tighten CHO ratio * Stressors stable PLAN FOR INPATIENT GLYCEMIC CONTROL: * Basal insulin * Lantus scale SQ bid * give 20 units BSGs<160mg/dL * give 25 units BSGs >/=160mg/dL * Bolus insulin * NovoLog per scale ACHS or Q6hrs while NPO * Goal Range: Low 110 mg/dL - High 140 mg/dL * Correction Factor: 20 mg/dL/unit * Nutritional / Prandial insulin per carb ratio of 1 unit per 5 grams CHO consumed
--- NOTE | 2018-06-12 14:05 | Cardiology Consultation ---
Date of Consultation June 12, 2018 Assessment & Plan (1) Septicemia due to group B Streptococcus: History of severe aortic 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 and an ascending aortic aneurysm Status post May 2007 aortic valve replacement and ascending aorta repair with a #[address] [employer] composite graft with reimplantation of the coronary arteries. Transthoracic echocardiogram technically limited. Proceed with transesophageal echocardiography in the morning of June 13, [address] Miki Ballard. (2) PAF (paroxysmal atrial fibrillation): Sinus rhythm maintained on metoprolol as well as low-dose amiodarone. TSH was normal (4.110 uIu/mL) last on March 01, 2018. AST, ALT, and alk phos were all normal last on June 07, 2018. Chest x-ray was interpreted by the radiologist as having diffuse elevation of the interstitium X-ray findings as well as recent hospitalization to raise concern for possible amiodarone induced pulmonary toxicity. Noncontrast CT scan of the chest requested. (3) S/P aortic valve replacement: As above. Patient requires lifelong Coumadin anticoagulation. INR goal of 2.5-3.5. (4) CHF exacerbation: Fairly compensated. Follow (5) ASCVD (arteriosclerotic cardiovascular disease): Troponin negative on presentation Asymptomatic Recommend conservative management (6) HTN, goal below 150/90: Follow Supervising Physician Co-Signing Physician Notes Cardiology attending: Pt seen and examined, agree with findings and assessment as per Zana Olivares PA-C. Pt carries hx of mechanical mitral valve prosthesis and currently with group negative strep blood cultures. Will proceed with TENNILLE in the AM. No hx of esophageal stricture, theresa or hypoxemia. Risks and benefits explained in great detail, pt states that he understands, he is accepting of the risks and wishes to proceed. NPO after midnight. INR of 1.9 today. History of Present Illness Reason for Consultation: group B strep. ? Need for TENNILLE Requesting Physician: Rio Attending Physician: Amee Pate MD History of Present Illness History of Present Illness: Mr. Bartlett is a pleasant 77 year old male who notes being in and out of the hospital, feeling poor for about the last 3-4 months. Chart review reveals that he was hospitalized in with right knee pain, receiving a steroid injection by orthopedics on February 25, 2018. During that admission he was also noted to have a tongue laceration requiring repair. He was noted to have a tongue lesion which was removed without incident as an outpaitent on April 21, 2018. He was admitted in April 2018 with acute hypoxic respiratory failure, metabolic encephalopathy, possible lower extremity cellulitis. Blood cultures at that time were negative. The patient was admitted on June 07, 2018 with respiratory failure, profound hypoxemia felt to be secondary to heart failure exacerbation. He was felt to have acute decompensated heart failure as well as hypertensive urgency. He was notably febrile on presentation with blood cultures revealing group B strep. Resting echocardiography was performed on June 09, 2018 and was notably technically limited and technically difficult. The aortic valve was not well visualized with recommendations to consider transesophageal echocardiogram. Dr. Amee Pate has requested this consultation secondary to the group B beta strep, consideration for TENNILLE. Past Medical and Surgical History: 1. Severe aortic 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 with an ascending aortic aneurysm status post May 2007 aortic valve replacement and ascending aorta repair with a #[address] [facility] composite graft with reimplantation of the epicardial coronary arteries, cardiac tamponade secondary to a large pericardial effusion status post emergent evacuation with redo sternotomy on 06/29/2007 2. Mild ASCVD by May 01, 2007 catheterization. 20-30% mid LAD stenosis, 20% diagonal stenosis, 30% LCX stenosis, and a 20-40% RCA stenosis with EF of 45% by LV gram 3. June 13, 2015 diagnostic cardiac catheterization at [facility] revealed mild nonobstructive coronary artery disease with normally functioning mechanical aortic valve. Specific angiography revealed an ectatic LM, 40% mid LAD lesion, 40% mid LCX stenosis, and a dominant RCA with 40% mid vessel stenosis. 4. Diastolic congestive heart failure 5. Chronic left bundle branch block 6. History of iron deficiency. 7. 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 8. Anemia of chronic disease 9. Paroxysmal atrial fibrillation, prescribed chronic amiodarone therapy 10. 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 Mild carotid occlusive disease 12. Hypertension 13. Dyslipidemia 14. Type II diabetes mellitus 15. Stage III chronic kidney disease 16. COPD with past tobacco abuse 17. Hypothyroidism 18. Obesity 19. Cataract extraction Family History: Noncontributory. His mother from diabetes complications around the age of 78. His father in his 70s, cause unknown. Brother with lung cancer, kidney transplant. Brother with CAD. Social History: Reformed smoker, quit in 2007 after smoking 1 pack/day x 45 years. No significant alcohol unless having a cigar. No illegal drug use. , (Helen) in ill health currently. Retired from [employer]. A complete and accurate review of system is difficult to obtain. He notes feeling poorly for at least the last 4 months. He is edentulous, wearing upper and lower dentures. He is hard of hearing. He denies current fevers or chills. Denies night sweats. Denies chest pain. He describes stable shortness of breath and orthopnea. He has a mild nonproductive cough. He denies abdominal pain. He denies nausea, vomiting, or diarrhea. He denies melena or hematochezia. He denies hematuria. He denies hemoptysis. Allergies Allergy/AdvReac Type Severity Reaction Status Date / Time No Known Allergies Allergy Unverified 03/01/18 23:30 Home Medications Home Medications Medication Instructions Recorded Confirmed Type Novolog Mix 70-30FlexPen U-100 26 units SUBCUT QA 02/23/18 06/07/18 History amiodarone 100 mg PO QAM 02/23/18 06/07/18 History amlodipine 2.5 mg PO QAM 02/23/18 06/07/18 History aspirin [Aspirin Low Dose] 40.5 mg PO [facility] 02/23/18 06/07/18 History atorvastatin 40 mg PO QAM 02/23/18 06/07/18 History docusate sodium 100 mg PO [facility] 02/23/18 06/07/18 History folic acid 1 mg PO QAM 02/23/18 06/07/18 History furosemide 80 mg PO QAM 02/23/18 06/07/18 History isosorbide mononitrate 90 mg PO QAM 02/23/18 06/07/18 History levothyroxine 50 mcg PO HS 02/23/18 06/07/18 History lisinopril 40 mg PO QAM 02/23/18 06/07/18 History metoprolol tartrate 25 mg PO [facility] 02/23/18 06/07/18 History nitroglycerin 0.4 mg SUBLINGUAL DIRECTED PRN 02/23/18 06/07/18 History terazosin 2 mg PO HS 02/24/18 06/07/18 History warfarin 1 dose PO DIRECTED 03/01/18 06/07/18 History insulin asp prt-insulin aspart 50 units SUBCUT QDD 05/18/18 06/07/18 History Patient History Medical History CVA (cerebral vascular accident) (Acute) CHF (congestive heart failure) (Chronic) HTN (hypertension) (Chronic) Coronary artery disease Family History Other No pertinent family history Social History Communication Ability: Effective Beliefs That Will Affect Care: [employer] marital status: Current Living Situation: Spouse Current Living Situation Comment: Patient stated, he " lived at home with his " Other Information That Helps Us Care for You: No Feels Safe at Home: Yes Safety Concerns: Feels Safe At This Time Smoking Status: Current every day smoker Hx Alcohol Use: No Hx Substance Use: No Physical Exam Vital Signs (Past 24 Hours): Last Vital Signs Temp 37.1 C 06/12/18 12:04 Pulse 85 06/12/18 12:04 Resp 20 06/12/18 12:04 BP 158/81 H 06/12/18 12:04 Pulse Ox 85 L 06/12/18 12:04 Physical Exam: General: A&Ox3. NAD. Obese. Residual right sided weakness. HEENT: Normocephalic. PER. Conjunctiva pink, sclera pale. Mucous membranes are dry. Neck: Right carotid bruit. No overt JVD. Heart: Irregular in the 70's. [place] mechanical valve sounds. Soft systolic ejection murmur. Lungs: Diminished but clear to auscultation. Abdomen: Obese. +BS. Soft. Nontender. No masses or organomegaly. Extremities: No clubbing. No cyanosis. 1+ peripheral edema. Stasis changes, right greater than the left. Results & Data Laboratory Results Laboratory Results - last 24 hr 06/11/18 06/11/18 06/12/18 16:31 20:39 05:59 PT 18.8 H INR 1.9 H Sodium Potassium Chloride Carbon Dioxide Anion Gap BUN Creatinine Est Cr Clr Drug Dosing Est GFR ( Amer) Est GFR (Non-Af Amer) BUN/Creatinine Ratio Glucose POC Glucose 162 H 200 H Calcium 06/12/18 06/12/18 06/12/18 05:59 07:27 11:10 PT INR Sodium 143 Potassium 3.7 Chloride 107 Carbon Dioxide 30 Anion Gap 6.0 BUN 29 H Creatinine 1.69 H Est Cr Clr Drug Dosing 48.9 Est GFR ( Amer) 44.4 Est GFR (Non-Af Amer) 38.3 BUN/Creatinine Ratio 17.2 Glucose 127 H POC Glucose 130 H 447 H* Calcium 8.0 L 06/12/18 11:11 PT INR Sodium Potassium Chloride Carbon Dioxide Anion Gap BUN Creatinine Est Cr Clr Drug Dosing Est GFR ( Amer) Est GFR (Non-Af Amer) BUN/Creatinine Ratio Glucose POC Glucose 189 H Calcium Diagnostic Findings Admission EKG is poor technical quality, appearing to probably represent sinus tachycardia. Continuous telemetry monitoring reveals sinus with a prolonged first-degree AV block and ectopy. June 09, 2018 TTE Interpretation Summary: Technically limited. Technically difficult. Normal LV size. Moderate concentric LVH. Septal motion is consistent with conduction abnormality. No regional wall motion noted. EF 60- 65%. The aortic valve is not well visualized. There is a bioprosthetic aortic valve. Aortic valve prosthesis gradients are elevated, no prior for comparison. Bioprosthetic leaflets are not well visualized. The mitral valve is not well visualized. There is mild mitral annular calcification. No mitral stenosis. The tricuspid and pulmonic valve were not well visualized. Consider tra nsesophageal echo. (1) CHF exacerbation Heart failure type: unspecified Qualified Code(s): I50.9 - Heart failure, unspecified
--- NOTE | 2018-06-12 15:08 | CT Scan Report ---
CT chest wo con CLINICAL HISTORY: abnormal CXR. ? Amiodarone pulmonary toxicity COMPARISON STUDY: Chest x-ray dated 06/07/2018 CT DOSE: 1096.42 mGy.cm TECHNIQUE: CT of the thorax was performed from the thoracic inlet to the lung bases. Images are revi ewed in the axial, sagittal, and coronal planes. IV contrast was not administered for this examinatio n. A dose lowering technique was utilized adhering to the principles of ALARA. FINDINGS: Thyroid: Imaged portions of the thyroid gland are normal in appearance. Thoracic aorta: There is aneurysmal dilatation of the ascending thoracic aorta which measures 47 mm. The descending thoracic aorta measures 36 mm. Heart: The heart is enlarged with coronary artery calcifications. There is no significant pericardial effusion Lungs and pleural spaces: There are bilateral pleural effusions right greater than left. There is mod erate respiratory motion artifact. Dependent airspace opacities are likely atelectatic. There is an a swapnil of airspace consolidation within the right upper lobe, atelectatic versus infectious/inflammatory . Left upper lobe opacities, likely represent atelectasis/scarring. Mediastinum: There is no mediastinal lymphadenopathy. Latoya: There is no evidence of pathologic hilar adenopathy given the limitations of a noncontrast stud y Axilla: Clear. Upper abdomen: Partially visualized upper abdominal viscera is within normal limits. Skeletal structures: There are no lytic or blastic osseous lesions. IMPRESSION: 1. Cardiomegaly, coronary artery calcifications, and bilateral pleural effusions right greater than l eft 2. Dependent airspace opacities likely atelectatic 3. Right upper lobe airspace opacity atelectatic versus infectious/inflammatory 4. Left upper lobe opacities likely atelectasis/scarring 5. Aneurysmal dilatation of the thoracic aorta. Electronically signed by: Jaylon Alvarez M.D. 06/12/2018 3:07 PM
[2018-06-12] MEDS ORDERED: HydrALAZINE HCL 20 MG/ML VIAL IV STA (15:54)
[2018-06-12] MEDS ORDERED: ACETAMINOPHEN 325 MG TAB PO PRN (15:56)
[2018-06-12] MEDS: WARFARIN SOD 3 MG TAB PO SCH (16:20)
[2018-06-12] MEDS: TERAZOSIN HCL 1 MG CAP PO SCH (19:36)
--- NOTE | 2018-06-12 19:56 | Hospitalist Progress Note ---
Date of Service June 12, 2018 Assessment & Plan (1) Septicemia due to group B Streptococcus: Blood cx on 06/07 and 06/08 positive for gram positive cocci (Group B beta strep) Repeat blood cx on 06/10 no growth ID on board changed IV vanco to Rocephin 2g IV daily Echo could not r/o any vegetation Follow up repeat cx no growth so far Had a prosthetic valve need to r/o vegetation cardiology consult and plan for TENNILLE in am Will make NPO after midnight (2) Respiratory failure: Admitted with Lin respiratory failure with profound hypoxemia he Likely secondary to CHF exacerbation Has been on BiPAP and getting better ABG did not show any significant CO2 retention continue with oxygen as needed (3) CHF exacerbation: Present to the ER with worsening SOB Likely secondary to CHF exacerbation CXR showed pulmonary edema Continue IV lasix 80mg Continue monitor BMP while on IV lasix I/O and fluid restriction Clinically improves (4) Hypertensive urgency: BP improves Continue amlodipine and lisinopril Monitor BP (5) S/P aortic valve replacement: Denies any chest pain INR is supratherapeutic INR 1.9 today continue coumadin Monitor PT/INR (6) Diabetes type 2, uncontrolled: Continue current dose of insulin Hemoglobin A1c 8.6 Monitor BS (7) PAF (paroxysmal atrial fibrillation): Heart rate is controlled on amiodarone and beta shiv Has left bundle branch block with associated ST-T wave changes INR was noted to be high at 5.1 Continue coumadin INR 1.9 today (8) Hyperlipidemia: Continue statin (9) Hypothyroidism: Continue levothyroxine (10) CVD (cardiovascular disease): Continue statin, aspirin Continue coumadin Stable (11) Fever: Elevated procalcitonin Chest x-ray did not show any pneumonia and no history of bronchitis UA has been unremarkable Has bilateral leg swelling with redness Doubt any sepsis Continue IV abx for now blood cx positive for group b beta strep CKD stage 3 Creatinine improves to 1.8 stable Monitor BMP DVT px INR 1.9 Continue coumadin CODE STATUS DNR Disposition Continue monitor in tele Subjective Pt was seen and examined Lying in bed with no distress Pt said that early after the CT chest that he had a hard time to breath He said that his breathing feels much better now Denies any chest pain, palpitation, dizziness and SOB Physical Exam Vital Signs (Past 24 Hours): Last Vital Signs Temp 36.7 C 06/12/18 19:00 Pulse 76 06/12/18 19:00 Resp 18 06/12/18 19:00 BP 151/72 H 06/12/18 19:00 Pulse Ox 94 06/12/18 19:00 Physical Exam: General- No acute distress Head- atraumatic Eyes- PERRL, EOMI, ENT- oropharynx clear Neck- supple, no JVD Lungs- diminished BS Heart- regular rhythm Abdomen- normal bowel sounds, soft, nontender Extremities- no calf tenderness, +edema Neuro- alert, oriented x 3; PERRL, EOMI; no facial palsy; no dysarthria Skin- warm & dry (1) CHF exacerbation Heart failure type: unspecified Qualified Code(s): I50.9 - Heart failure, unspecified
[2018-06-12] MEDS ORDERED: METOPROLOL TARTRATE 1 MG/ML VIAL IV STA (23:42)
[2018-06-12] MEDS ORDERED: METOPROLOL TARTRATE 1 MG/ML VIAL IV ONE (23:48)
[2018-06-13] MEDS ORDERED: METOPROLOL TARTRATE 1 MG/ML VIAL IV STA (06:38)
[2018-06-13 07:34] LABS: Basophils # (auto) 0.02 K/uL (0-0.2); Basophils % (auto) 0.2 %; Eosinophils # (auto) 0.09 K/uL (0-0.5); Eosinophils % (auto) 0.8 %; Hematocrit (blood only) 31.2 % (42-52); Hemoglobin 10.4 g/dL (14.0-18.0); Immature Granulocytes # (auto) 0.07 K/uL (0.00-0.02); Immature Granulocytes % (auto) 0.6 %; Lymphocytes % (auto) 10.2 %; Mean Corpuscular Hgb Conc 33.3 g/dL (32-36); Mean Corpuscular Volume 81.7 fL (80-100); Mean Platelet Volume 9.7 fL (7.4-10.4); Monocytes # (auto) 0.96 K/uL (0.11-0.59); Monocytes % (auto) 8.9 %; Neutrophils # (auto) 8.53 K/uL (1.4-6.5); Neutrophils % (auto) 79.3 %; Platelet Count 196 K/uL (130-400); RDW Coefficient of Variation 16.5 % (11.5-14.5); RDW Standard Deviation 49.8 fL (36.4-46.3); Red Blood Count 3.82 M/uL (4.7-6.1); White Blood Count 10.77 K/uL (4.8-10.8)
[2018-06-13] MEDS: INSULIN ASPART 100 UNITS/ML 3 ML PEN SC SCH ×4 (08:15→20:43)
[2018-06-13 08:18] LABS: BUN Creatinine Ratio 17.6 (10-20); Calcium 8.3 mg/dl (8.5-10.1); Creatinine Clr Calc Pharmacy 45.2 ml/min; Est GFR (African American) 40.6; Magnesium 2.2 mg/dl (1.8-2.4); Potassium 3.6 mmol/L (3.5-5.1)
[2018-06-13] MEDS: FUROSEMIDE 80 MG in SYRINGE 0 ML IV SCH (08:22)
[2018-06-13] MEDS: cefTRIAXone SODIUM 2,000 MG in DEXTROSE 5% 50 ML IV SCH (08:22)
[2018-06-13 08:40] LABS: INR 2.3 (0.9-1.1); Prothrombin Time 21.8 Seconds (9.0-12.0)
[2018-06-13] MEDS: INSULIN GLARGINE SOLOSTAR 100 UNITS/ML 3 ML PEN SC SCH ×2 (08:50→20:42)
[2018-06-13] MEDS ORDERED: fentaNYL citrate 100 MCG/2 ML VIAL ONE (10:02)
[2018-06-13] MEDS ORDERED: MIDAZOLAM HCL 1 MG/ML 2ML VIAL ONE (10:02)
[2018-06-13] MEDS ORDERED: GLYCOPYRROLATE 0.2 MG/ML VIAL ONE (10:41)
--- NOTE | 2018-06-13 10:50 | Pre Anesthesia Assessment ---
Date of Service June 13, 2018 Pre Sedation Assessment Vital Signs Temp Pulse Pulse Resp BP BP Pulse Ox 06/13/18 06:47 107 H 126/79 06/13/18 06:43 37.4 C 97 H 22 126/78 91 06/13/18 03:46 37.4 C 112 H 24 124/75 91 06/12/18 23:51 107 H 126/79 06/12/18 23:22 36.5 C 107 H 24 126/79 92 06/12/18 19:00 36.7 C 76 18 151/72 H 94 06/12/18 16:19 174/84 H 06/12/18 16:04 64 06/12/18 15:49 38 C H 76 20 213/117 H 06/12/18 15:16 38.3 C H 85 21 179/99 H 94 06/12/18 14:53 88 06/12/18 12:04 37.4 C 76 18 155/76 H 95 Pre-Sedation Airway Assessment Smoking Status: Current every day smoker Hx Sleep Apnea: No Short, Thick Neck: No Thyromental Distance: > or= 3.5 Finger Breadths Oral Cavity: + Dentures Mallampati Class: II ASA: ASA3 NPO Status Date of Last Intake of Fluids: 06/13/18 Time of Last Intake of Fluids: 09:00 Date of Last Intake of Solid Food: 06/12/18 Time of Last Intake of Solid Foods: 17:00 Notes The planned sedation has been discussed with the patient. Informed Consent was obtained. I have identified the patient, determined the appropriateness of sedation and have assessed the patient immediately prior to the procedure. All medicine(s) and interventions are by my order.
--- NOTE | 2018-06-13 10:50 | History & Physical Bridge Note ---
Date of Service June 13, 2018 History & Physical Bridge Note I have examined the patient, reviewed the History & Physical and in the interval since the performance of the History & Physical I have noted the following changes of clinical significance: no changes noted
--- NOTE | 2018-06-13 11:23 | Post Anesthesia Assessment ---
Date of Service June 13, 2018 Post Sedation Assessment Vital Signs Temp Pulse Pulse Resp BP BP Pulse Ox 06/13/18 11:17 133 H 93/74 L 92 06/13/18 11:12 142 H 93/63 L 94 06/13/18 11:07 127 H 107/74 94 06/13/18 06:47 107 H 126/79 06/13/18 06:43 37.4 C 97 H 22 126/78 91 06/13/18 06:21 117 H 06/13/18 03:46 37.4 C 112 H 24 124/75 91 06/12/18 23:51 107 H 126/79 06/12/18 23:22 36.5 C 107 H 24 126/79 92 06/12/18 19:00 36.7 C 76 18 151/72 H 94 06/12/18 16:19 174/84 H 06/12/18 16:04 64 06/12/18 15:49 38 C H 76 20 213/117 H 06/12/18 15:16 38.3 C H 85 21 179/99 H 94 06/12/18 14:53 88 06/12/18 12:04 37.4 C 76 18 155/76 H 95 Post Sedation Plan On clinical assessment, the patient appears to have tolerated the sedation without complications. Patient is recovering as anticipated. Patient will continue to be monitored by nursing and may be discharged when sedation discharge criteria are met per below protocol. Upon Completions of procedure and additional 15 minutes continue every 5 minute vital signs and the P.A.R. score; then discharge to a Phase I or Fast Track to Phase II per the following guidelines: * Discharge Patient to appropriate Phase II area if PAR is 8 or greater or return to pre- procedure baseline. The post - procedure orders will be as directed. * If PAR score is less than 8 or not return to pre-procedure baseline then patient will follow Phase I monitoring till PAR is reached for Phase II. The Phase I may be done in procedure room or may call to secure a Phase I area. * If naloxone or flumazenil are used for reversal, hold in Phase I for continued monitoring from when last reversal dose was given for a minimum of 60 minutes or longer pending the nurse and/or physician discretion of patient condition before discharge to Phase II. Please call the Sedation Physician to re-evaluate and complete post-note for discharge to Phase II area. Do NOT discharge from procedure sedation or Phase 1 until post- sedation evaluation note is complete by procedure /sedation MD Sedation Discharge Instructions to be given to the patient at discharge to home.
--- NOTE | 2018-06-13 11:25 | Operative Report ---
Post Operative Report Pre & Post Diagnosis group B strep + blood cultures Post op: Mechanical aortic valve endocarditis Informed consent obtain from patient POA, niece, Aleisha Toure, by phone pt prepped Moderate conscious sedation achieved wit a total of Versed 4mg and Fentanyl 100mcg TENNILLE performed revealing a vegetation present on mechanical aortic prosthesis Pt tolerated well no complications start time:1107 stop time:1122 Procedure TENNILLE Surgeon Miki Ballard DO Head Of English none Estimated Blood Loss 0 Findings Consistent with Post-Op Diagnosis Specimens none Description of Procedure Vegetation present on mechanical aortic valve prosthesis I attest to the content of the Intraoperative Record and any orders documented therein. Any exceptions are noted below.
--- NOTE | 2018-06-13 11:34 | Hospitalist Progress Note ---
Date of Service June 13, 2018 Assessment & Plan (1) Septicemia due to group B Streptococcus: Blood cx on 06/07 and 06/08 positive for gram positive cocci (Group B beta strep) Repeat blood cx on 06/10 no growth ID on board changed IV vanco to Rocephin 2g IV daily Echo could not r/o any vegetation Follow up repeat cx no growth so far cardiology consult TENNILLE done today revealing a vegetation present on mechanical aortic prosthesis Will need IV abx for 6 weeks, will discuss finding with ID Will need PICC line placement once repeat blood cx negative (2) Respiratory failure: Admitted with Lin respiratory failure with profound hypoxemia he Likely secondary to CHF exacerbation Has been on BiPAP and getting better ABG did not show any significant CO2 retention continue with oxygen as needed (3) CHF exacerbation: Present to the ER with worsening SOB Likely secondary to CHF exacerbation CXR showed pulmonary edema Continue IV lasix 80mg would change to oral lasix I/O and fluid restriction Clinically improves (4) Hypertensive urgency: BP improves Continue amlodipine and lisinopril Monitor BP (5) S/P aortic valve replacement: Denies any chest pain INR was supratherapeutic @ 5.1 on admission INR 2.3 today continue coumadin Monitor PT/INR (6) Diabetes type 2, uncontrolled: Continue current dose of insulin Hemoglobin A1c 8.6 Monitor BS (7) PAF (paroxysmal atrial fibrillation): Went to Afib last night with HR btw 100's to 120 On amiodarone and beta shiv Continue low dose lopressor PRN for HR above 120 Will discuss with cardiology about to add cardizem if HR does not control INR on admission was 5.1 Continue coumadin INR 2.3 today (8) Hyperlipidemia: Continue statin (9) Hypothyroidism: Continue levothyroxine (10) CVD (cardiovascular disease): Continue statin, aspirin Continue coumadin Stable (11) Fever: Elevated procalcitonin Chest x-ray did not show any pneumonia and no history of bronchitis UA has been unremarkable Has bilateral leg swelling with redness Doubt any sepsis Continue IV abx for now blood cx positive for group b beta strep CKD stage 3 Creatinine improves to 1.8 stable Monitor BMP DVT px INR 2.3 Continue coumadin CODE STATUS DNR Disposition Continue monitor in tele Will need PICC line Subjective Pt was seen and examined Lying in bed with no distress Pt said that his breathing feels much last night around 10pm he went to Afib He has been on Afib since then with HR btw low 100 to 120 Denies any chest pain, palpitation and SOB Physical Exam Vital Signs (Past 24 Hours): Last Vital Signs Temp 37.4 C 06/13/18 06:43 Pulse 133 H 06/13/18 11:17 Resp 22 06/13/18 06:43 BP 93/74 L 06/13/18 11:17 Pulse Ox 92 06/13/18 11:17 Physical Exam: General- No acute distress Head- atraumatic Eyes- PERRL, EOMI, ENT- oropharynx clear Neck- supple, no JVD Lungs- diminished BS Heart- irregular rhythm Abdomen- normal bowel sounds, soft, nontender Extremities- no calf tenderness, +edema Neuro- alert, oriented x 3; PERRL, EOMI; no facial palsy; no dysarthria Skin- warm & dry (1) CHF exacerbation Heart failure type: unspecified Qualified Code(s): I50.9 - Heart failure, unspecified
--- NOTE | 2018-06-13 14:19 | Pharmacy Report ---
Pharmacy Glycemic Short Note 2 - Date of Service June 13, 2018 - Glycemic Short BSG Results (Last 24 hours): 06/12/18 06/12/18 06/13/18 16:30 20:30 07:20 Glucose POC Glucose 174 H 140 H 149 H 06/13/18 06/13/18 07:24 12:06 Glucose 156 H POC Glucose 149 H Outpatient regimen * Novolog 70/30, 26 units at breakfast, 50 units at dinner ASSESSMENT: 06-13: * Patient received total of 56 units of insulin yesterday, of which 40 units were basal insulin * Fasting BSG this am slightly elevated this morning at 156 mg/dL - patient is now NPO for TENNILLE this am; will receive 20 units of Lantus this am which is appropriate since BSGs yesterday remained elevated throughout the day even when po intake was poor * Lunchtime BSG 149 mg/dL - patient returns back from TENNILLE, will resume diet when gag reflex returns * Will continue with same CF/CR for now - had been changed yesterday, however since po intake was poor hard to assess if changes should be made * Will adjust Lantus dosing for this evening if patient's BSGs trend downward 06-12: * BSG's ranging 125-200 mg/dL over the last 24 hours - two of the three post- prandial BSG's are >180 mg/dL. Will tighten CHO ratio * Stressors stable PLAN FOR INPATIENT GLYCEMIC CONTROL: * Basal insulin - adjusted scale * Lantus scale SQ bid * give 15 units BSG<110 mg/dL * give 20 units BSGs 110-160 * give 25 units BSGs > 160mg/dL * Bolus insulin - continue same * NovoLog per scale ACHS or Q6hrs while NPO * Goal Range: Low 110 mg/dL - High 140 mg/dL * Correction Factor: 20 mg/dL/unit * Nutritional / Prandial insulin per carb ratio of 1 unit per 5 grams CHO consumed
--- NOTE | 2018-06-13 14:19 | Infectious Disease Progress Nt ---
Date of Service June 13, 2018 Assessment & Plan (1) Sepsis due to group B Streptococcus: continue rocephin repeat cultures negative to date will follow. echo done, negtive but TENNILLE done today now shows vegetation on mitral valve. due to ckd and worsening creat this admission coupled with pcn sensitive isolate of GBS will await addition of any further abx, will plan to treat with 6 weeks of IV rocehin, 2 g daily. If 06/10 cultures + will add gent, low dose x 2 weeks but will hold off for now due to underlying ckd, acute increase in creat and rish of further nephrotoxicity. If repeat cutlures + would suggest referral for surgical eval. (2) Septicemia due to group B Streptococcus: (3) Prosthetic valve endocarditis: Subjective blood cultures from 06/10 negative to date. remains on ctx, tolerating well. denies f/c. no cp, sob, cough. denies abd pain, no n/v/d. afebrile. TTE negative, creat remains elevated, 1.8 today. s/p TENNILLE, spoke with cardio, veg noted on mechanical valve. pt states he feels well post TENNILLE, tolerated well. den ies pain, no abd pain, no n/v/d.all remaining ros reviewed and are negative. Physical Exam Vital Signs (Past 24 Hours): Last Vital Signs Temp 37.1 C 06/13/18 12:02 Pulse 103 H 06/13/18 12:02 Resp 20 06/13/18 12:37 BP 114/78 06/13/18 12:37 Pulse Ox 95 06/13/18 12:37 Constitutional: WD/WN, vitals as above Eyes: PERRL, conjunctivae normal, anicteric sclerae ENMT: external ear and nose normal, oropharynx normal Neck: normal visual inspection Respiratory: normal respiratory effort, lungs clear to auscultation Cardiovascular: Rate/Rhythm: regular rate Heart Sounds: + murmur Gastrointestinal (Abdomen): normal bowel sounds, soft, nontender, no hepatosplenomegaly Musculoskeletal: no cyanosis or clubbing, extremities motor strength 5/5 Skin: no rashes, warm and dry Psychiatric: A+Ox3, euthymic affect Results & Data Laboratory Results Microbiology 06/08/18 05:41 Blood Blood Culture - Final Group B Beta Strep 06/08/18 05:56 Blood Blood Culture - Final No growth 06/10/18 07:14 Blood Blood Culture - Preliminary No growth to date. 06/10/18 07:01 Blood Blood Culture - Preliminary No growth to date. 06/09/18 07:08 Blood Blood Culture - Preliminary Group B Beta Strep 06/09/18 07:33 Blood Blood Culture - Preliminary No growth to date. 06/07/18 12:24 Blood Blood Culture - Final Group B Beta Strep 06/07/18 12:00 Blood Blood Culture - Final Group B Beta Strep
[2018-06-13] MEDS: WARFARIN SOD 3 MG TAB PO SCH (16:11)
[2018-06-13] MEDS: METOPROLOL TARTRATE 25 MG TAB PO SCH ×2 (16:12→20:46)
[2018-06-13] MEDS: ISOSORBIDE MONO EXTENDED REL 30 MG TABCR PO SCH (16:27)
[2018-06-13] MEDS: LISINOPRIL 40 MG TAB PO SCH (16:27)
[2018-06-13] MEDS: DOCUSATE SODIUM 100 MG CAP PO SCH ×2 (16:27→20:45)
[2018-06-13] MEDS: ASPIRIN 81 MG CHEW PO SCH ×2 (16:27→20:46)
[2018-06-13] MEDS: AMIODARONE 200 MG TAB PO SCH (16:27)
[2018-06-13] MEDS: LEVOTHYROXINE SODIUM 50 MCG TABLET PO SCH (16:27)
[2018-06-13] MEDS: FOLIC ACID 1 MG TAB PO SCH (16:27)
[2018-06-13] MEDS: AMLODIPINE BESYLATE 5 MG TAB PO SCH (16:27)
[2018-06-13] MEDS: ATORVASTATIN 40 MG TAB PO SCH (16:27)
--- NOTE | 2018-06-13 16:28 | Cardiology Progress Note ---
Date of Service June 13, 2018 Assessment & Plan (1) Septicemia due to group B Streptococcus: History of severe aortic 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 and an ascending aortic aneurysm Status post May 2007 aortic valve replacement and ascending aorta repair with a #[address] [facility] composite graft with reimplantation of the coronary arteries. Transthoracic echocardiogram technically limited. TENNILLE demonstrate lesion present on the mechanical aortic valve prosthesis consistent with vegetation ID made aware of results. (2) PAF (paroxysmal atrial fibrillation): Sinus rhythm maintained on metoprolol as well as low-dose amiodarone. TSH was normal (4.110 uIu/mL) last on March 01, 2018. AST, ALT, and alk phos were all normal last on June 07, 2018. Chest x-ray was interpreted by the radiologist as having diffuse elevation of the interstitium X-ray findings as well as recent hospitalization to raise concern for possible amiodarone induced pulmonary toxicity. Noncontrast CT scan of the chest requested. (3) S/P aortic valve replacement: As above. Patient requires lifelong Coumadin anticoagulation. Clarification: INR goal of 2-3. (4) CHF exacerbation: Fairly compensated. Follow (5) ASCVD (arteriosclerotic cardiovascular disease): Troponin negative on presentation Asymptomatic Recommend conservative management (6) HTN, goal below 150/90: Follow Subjective Pt seen and examined, states that he still feels tired and run down. Denies cp, sob, palpitations, lightheadedness or dizziness. Tele reviewed: sinus rhythm, did briefly go into afib with rvr during TENNILLE Review of Systems All systems reviewed & are unremarkable except as noted in HPI & below Physical Exam Vital Signs (Past 24 Hours): Last Vital Signs Temp 37.1 C 06/13/18 15:12 Pulse 99 H 06/13/18 15:12 Resp 16 06/13/18 15:12 BP 116/75 06/13/18 15:12 Pulse Ox 95 06/13/18 15:48 Physical Exam: General: Awake, alert and oriented x 3. No acute distress. HEENT: Normocephalic, atraumatic. Pupils equal, round and reactive to light and accommodation. Extraocular muscles are intact. Anicteric sclera. Moist mucous membranes. Neck: No JVD. No bruit. Cardiovascular: Regular. Positive S-4. Normal S-1 and metallic S-2. No S-3. 3/6 mid to late systolic ejection murmur, greatest at the right sternal border, second intercostal space with radiation to the bilateral carotids. No rubs. Pulmonary: Clear to auscultation bilaterally. No rales, rhonchi, or wheezing. Abdomen: Bowel sounds x 4, soft. No rebound, guarding or tenderness. No organomegaly. Extremities: No clubbing, cyanosis or edema. +2 pedal pulses bilaterally. Skin: Warm and dry. (1) CHF exacerbation Heart failure type: unspecified Qualified Code(s): I50.9 - Heart failure, unspecified
[2018-06-13] MEDS: TERAZOSIN HCL 1 MG CAP PO SCH (20:45)
[2018-06-14] MEDS: LEVOTHYROXINE SODIUM 50 MCG TABLET PO SCH (06:05)
[2018-06-14 06:15] LABS: Prothrombin Time 33.7 Seconds (9.0-12.0)
[2018-06-14 06:19] LABS: BUN Creatinine Ratio 20.1 (10-20); Calcium 8.2 mg/dl (8.5-10.1); Creatinine Clr Calc Pharmacy 45.2 ml/min; Est GFR (African American) 40.6; Potassium 3.6 mmol/L (3.5-5.1)
[2018-06-14 06:30] LABS: INR 3.6 (0.9-1.1)
[2018-06-14] MEDS: INSULIN ASPART 100 UNITS/ML 3 ML PEN SC SCH ×4 (08:03→21:28)
[2018-06-14] MEDS: cefTRIAXone SODIUM 2,000 MG in DEXTROSE 5% 50 ML IV SCH (08:05)
[2018-06-14] MEDS: ATORVASTATIN 40 MG TAB PO SCH (08:06)
[2018-06-14] MEDS: FOLIC ACID 1 MG TAB PO SCH (08:06)
[2018-06-14] MEDS: LISINOPRIL 40 MG TAB PO SCH (08:06)
[2018-06-14] MEDS: FUROSEMIDE 80 MG in SYRINGE 0 ML IV SCH (08:06)
[2018-06-14] MEDS: ISOSORBIDE MONO EXTENDED REL 30 MG TABCR PO SCH (08:06)
[2018-06-14] MEDS: ASPIRIN 81 MG CHEW PO SCH ×2 (08:06→21:22)
[2018-06-14] MEDS: AMLODIPINE BESYLATE 5 MG TAB PO SCH (08:06)
[2018-06-14] MEDS: DOCUSATE SODIUM 100 MG CAP PO SCH ×2 (08:06→21:23)
[2018-06-14] MEDS: INSULIN GLARGINE SOLOSTAR 100 UNITS/ML 3 ML PEN SC SCH ×2 (08:07→21:27)
[2018-06-14] MEDS: AMIODARONE 200 MG TAB PO SCH (08:08)
[2018-06-14] MEDS: METOPROLOL TARTRATE 25 MG TAB PO SCH ×2 (09:35→21:24)
--- NOTE | 2018-06-14 14:40 | Infectious Disease Progress Nt ---
Date of Service June 14, 2018 Assessment & Plan (1) Sepsis due to group B Streptococcus: continue rocephin repeat cultures negative to date will follow. echo done, negtive but TENINLLE now shows vegetation on mitral valve. due to ckd and worsening creat this admission coupled with pcn sensitive isolate of GBS will await addition of any further abx, will plan to treat with 6 weeks of IV rocehin, 2 g daily. If 3/16 cultures + will add gent, low dose x 2 weeks but will hold off for now due to underlying ckd, acute increase in creat and rish of further nephrotoxicity. If repeat cutlures + would suggest referral for surgical eval. (2) Septicemia due to group B Streptococcus: (3) Prosthetic valve endocarditis: Subjective 06/10 blood cultures remain negative, previous cultures + GBS. Remains on rocephin, tolerating well. afebrile. TENNILLE + for veg on MV, creat slighlty increased today, 1.82. Physical Exam Vital Signs (Past 24 Hours): Last Vital Signs Temp 37.0 C 06/14/18 11:22 Pulse 94 H 06/14/18 11:22 Resp 19 06/14/18 11:22 BP 109/68 06/14/18 11:22 Pulse Ox 91 06/14/18 11:22 Results & Data Laboratory Results Microbiology 06/08/18 05:41 Blood Blood Culture - Final Group B Beta Strep 06/08/18 05:56 Blood Blood Culture - Final No growth 06/10/18 07:14 Blood Blood Culture - Preliminary No growth to date. 06/10/18 07:01 Blood Blood Culture - Preliminary No growth to date. 06/09/18 07:08 Blood Blood Culture - Preliminary Group B Beta Strep 06/09/18 07:33 Blood Blood Culture - Preliminary No growth to date. 06/07/18 12:24 Blood Blood Culture - Final Group B Beta Strep 06/07/18 12:00 Blood Blood Culture - Final Group B Beta Strep
[2018-06-14] MEDS: WARFARIN SOD 3 MG TAB PO SCH (16:57)
--- NOTE | 2018-06-14 20:17 | Hospitalist Progress Note ---
Date of Service June 14, 2018 Assessment & Plan (1) Prosthetic valve endocarditis: Blood cultures at time of admission grew group B beta hemolytic strep. No valvular vegetations noted on transthoracic echo, but TENNILLE demonstrated vegetation on mechanical aortic valvlve. ID consulted. Repeat blood cultures on 06/08 and 06/09 positive. Repeat blood cultures x 2 on 06/10 negative so far. Receiving IV ceftriaxone. 6 week course of therapy anticipated. (2) Sepsis due to group B Streptococcus: Met criteria for sepsis at time of admission- fever, tachycardia. Sepsis secondary to endocarditis. (3) Chronic diastolic heart failure: Admission chest x-ray showed CHF. Echo showed normal LVEF, moderate concentric LVH. Probable acute on chronic left ventricular diastolic heart failure. Continue diuretics and other cardiovascular meds. Check follow-up chest x-ray. (4) S/P aortic valve replacement: Management of endocarditis as discussed above. Continue warfarin. (5) PAF (paroxysmal atrial fibrillation): Continue metoprolol, amiodarone, warfarin. 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 Paroxysmal atrial fib. Continue warfarin, glycemic management, lipid management. (7) HTN, goal below 150/90: Continue metoprolol, lisinopril, nitrates. (8) CKD (chronic kidney disease), stage III: Serum creatinine 2.41 at time of admission. Creatinine today = 1.82. Follow. (9) Diabetes type 2, uncontrolled: Lantus / NovoLog per protocol. (10) Hyperlipidemia: Continue atorvastatin. (11) Hypothyroidism: Continue levothyroxine. (12) DVT prophylaxis: Continue warfarin. (13) Discharge planning issues: Anticipated need for skilled care. Patient would prefer to go home, but willing to consider [facility]. Case Management consulted. Family Medicine follow-up with Dr. Buck. Neymar visiting this afternoon and given update. Subjective Recheck for endocarditis and other problems. Pt seen in his room around 1140. Tired. No fever or chills. No chest pain. No SOB. Needs assistance with ADL's. Review of Systems No fever. No chest pain. No cough or SOB. No nausea, vomiting, diarrhea. No urinary symptoms. Chronic right-sided weakness. Otherwise, as noted above. Physical Exam Vital Signs (Past 24 Hours): Last Vital Signs Temp 37.1 C 06/14/18 19:12 Pulse 86 06/14/18 19:12 Resp 18 06/14/18 19:12 BP 121/74 06/14/18 19:12 Pulse Ox 92 06/14/18 19:12 Constitutional: no acute distress Respiratory: no respiratory distress Auscultation: lungs clear to auscultation bilaterally Cardiovascular: Rate/Rhythm: regular rate; + abnormal rhythm Heart Sounds: + abnormal S1 (mechanical valve sounds in aortic position), no gallop and no cardiac rub Vessels: + JVD Extremities: + edema (1+ pretibial); no calf tenderness Gastrointestinal (Abdomen): normal bowel sounds, soft, nontender, no hepatosplenomegaly Skin: no rashes, warm and dry Neurologic: right facial palsy mild dysarthria RUE / RLE 4/5 Psychiatric: Orientation: alert and oriented x 3 Results & Data Laboratory Results Laboratory Results - last 24 hr 06/14/18 06/14/18 06/14/18 05:19 05:19 07:12 PT 33.7 H INR 3.6 H Sodium 145 Potassium 3.6 Chloride 108 H Carbon Dioxide 32 Anion Gap 5.0 BUN 37 H Creatinine 1.82 H Est Cr Clr Drug Dosing 45.2 Est GFR ( Amer) 40.6 Est GFR (Non-Af Amer) 35.0 BUN/Creatinine Ratio 20.1 H Glucose 116 H POC Glucose 117 H Calcium 8.2 L 06/14/18 06/14/18 06/14/18 11:22 16:21 20:22 PT INR Sodium Potassium Chloride Carbon Dioxide Anion Gap BUN Creatinine Est Cr Clr Drug Dosing Est GFR ( Amer) Est GFR (Non-Af Amer) BUN/Creatinine Ratio Glucose POC Glucose 165 H 140 H 163 H Calcium
[2018-06-14] MEDS: TERAZOSIN HCL 1 MG CAP PO SCH (21:23)
[2018-06-15] MEDS: LEVOTHYROXINE SODIUM 50 MCG TABLET PO SCH (06:41)
[2018-06-15 07:05] LABS: Hematocrit (blood only) 30.8 % (42-52); Mean Corpuscular Hgb Conc 32.5 g/dL (32-36); Mean Corpuscular Volume 82.8 fL (80-100); Mean Platelet Volume 10.1 fL (7.4-10.4); Platelet Count 233 K/uL (130-400); RDW Coefficient of Variation 16.7 % (11.5-14.5); Red Blood Count 3.72 M/uL (4.7-6.1); White Blood Count 9.39 K/uL (4.8-10.8)
[2018-06-15 07:28] LABS: INR 4.8 (0.9-1.1)
--- NOTE | 2018-06-15 07:28 | XRay Report ---
XR chest 1V portable HISTORY: 77 years-old Male CHF acute shortness of breath with congestive heart failure COMPARISON: Chest radiograph 06/07/2018, chest CT 06/12/2018 TECHNIQUE: Portable AP view of the chest FINDINGS: Cardiac silhouette is enlarged, unchanged. Prior median sternotomy with cardiac valvular prosthesis. Pulmonary vascular congestion with decreased pulmonary edema. Bibasilar opacities redemonstrated ashanti g with trace pleural effusions. Persistent airspace opacities are noted about the right upper lobe. N o pneumothorax. Degenerative changes of the shoulders and spine. Dilation of the thoracic aorta redem onstrated. IMPRESSION: 1. Cardiomegaly with decreased pulmonary edema. 2. Trace pleural effusions with bibasilar opacities favoring atelectasis. 3. Airspace opacities of the right upper lobe redemonstrated suggestive of atelectasis or pneumonitis . The above report was generated using voice recognition software. It may contain grammatical, syntax o r spelling errors. Electronically signed by: Jose Goddard M.D. 06/15/2018 7:27 AM
[2018-06-15] MEDS: WARFARIN SOD 3 MG TAB PO SCH (07:37)
[2018-06-15 07:43] LABS: BUN Creatinine Ratio 21.9 (10-20); Calcium 8.1 mg/dl (8.5-10.1); Creatinine Clr Calc Pharmacy 45.5 ml/min; Est GFR (African American) 40.9; Est GFR (Non-African American) 35.3; Potassium 3.5 mmol/L (3.5-5.1)
[2018-06-15] MEDS: ISOSORBIDE MONO EXTENDED REL 30 MG TABCR PO SCH (08:04)
[2018-06-15] MEDS: cefTRIAXone SODIUM 2,000 MG in DEXTROSE 5% 50 ML IV SCH (08:04)
[2018-06-15] MEDS: DOCUSATE SODIUM 100 MG CAP PO SCH ×2 (08:04→20:51)
[2018-06-15] MEDS: ATORVASTATIN 40 MG TAB PO SCH (08:05)
[2018-06-15] MEDS: FOLIC ACID 1 MG TAB PO SCH (08:05)
[2018-06-15] MEDS: METOPROLOL TARTRATE 25 MG TAB PO SCH ×2 (08:05→20:51)
[2018-06-15] MEDS: AMIODARONE 200 MG TAB PO SCH (08:05)
[2018-06-15] MEDS: AMLODIPINE BESYLATE 5 MG TAB PO SCH (08:05)
[2018-06-15] MEDS: FUROSEMIDE 40 MG TAB PO SCH (08:06)
[2018-06-15] MEDS: INSULIN ASPART 100 UNITS/ML 3 ML PEN SC SCH ×4 (08:06→20:49)
[2018-06-15] MEDS: LISINOPRIL 40 MG TAB PO SCH (08:06)
[2018-06-15] MEDS: ASPIRIN 81 MG CHEW PO SCH ×2 (08:06→20:50)
[2018-06-15] MEDS ORDERED: INSULIN GLARGINE SOLOSTAR 100 UNITS/ML 3 ML PEN SC SCH (09:00)
--- NOTE | 2018-06-15 11:48 | Pharmacy Report ---
Pharmacy Glycemic Short Note 2 - Date of Service June 15, 2018 - Glycemic Short BSG Results (Last 24 hours): 06/14/18 06/14/18 06/14/18 11:22 16:21 20:22 Glucose POC Glucose 165 H 140 H 163 H 06/15/18 06/15/18 06/15/18 06:54 07:24 11:24 Glucose 102 H POC Glucose 103 H 137 H 06/15/18 11:30 Glucose POC Glucose 159 H Outpatient regimen * Novolog 70/30, 26 units at breakfast, 50 units at dinner ASSESSMENT: 3: * Patient received total of 65 units of insulin yesterday, of which 45 units were basal insulin * Fasting BSG within range at 102 mg/dL - will continue with Lantus 20 units this morning ; continue with scale for this evening * Yesterday BSGs only 2 slightly elevated at 165 - 163 mg/dL, all others within range - will continue same CF/CR. Diet seems to be improving this morning will continue to trend 06-13: * Patient received total of 56 units of insulin yesterday, of which 40 units were basal insulin * Fasting BSG this am slightly elevated this morning at 156 mg/dL - patient is now NPO for TENNILLE this am; will receive 20 units of Lantus this am which is appropriate since BSGs yesterday remained elevated throughout the day even when po intake was poor * Lunchtime BSG 149 mg/dL - patient returns back from TENNILLE, will resume diet when gag reflex returns * Will continue with same CF/CR for now - had been changed yesterday, however since po intake was poor hard to assess if changes should be made * Will adjust Lantus dosing for this evening if patient's BSGs trend downward 3-18: * BSG's ranging 125-200 mg/dL over the last 24 hours - two of the three post- prandial BSG's are >180 mg/dL. Will tighten CHO ratio * Stressors stable PLAN FOR INPATIENT GLYCEMIC CONTROL: * Basal insulin - adjusted scale * Lantus scale SQ bid * give 15 units BSG <100 mg/dL * give 20 units BSGs 100 -160 * give 25 units BSGs > 160mg/dL * Bolus insulin - continue same * NovoLog per scale ACHS or Q6hrs while NPO * Goal Range: Low 110 mg/dL - High 140 mg/dL * Correction Factor: 20 mg/dL/unit * Nutritional / Prandial insulin per carb ratio of 1 unit per 5 grams CHO consumed
--- NOTE | 2018-06-15 14:02 | Infectious Disease Progress Nt ---
Date of Service June 15, 2018 Assessment & Plan (1) Sepsis due to group B Streptococcus: continue rocephin repeat cultures negative to date will follow. echo done, negtive but TENNILLE now shows vegetation on mitral valve. due to ckd and worsening creat this admission coupled with pcn sensitive isolate of GBS will await addition of any further abx, will plan to treat with 6 weeks of IV rocehin, 2 g daily. ok for picc line, cultures sterile x several days. will need 6 weeks IV rocephin from first negative culture, will need weekly cbc,cmp, esr while on abx, can follow with ID post d/c. will likely repeat echo as well (2) Septicemia due to group B Streptococcus: (3) Prosthetic valve endocarditis: Subjective 06/10 blood cultures remain negative, previous cultures + GBS. Remains on rocephin, tolerating well. afebrile. TENNILLE + for veg on MV, creat 1,8 today. cxr this am, atelectasis Physical Exam Vital Signs (Past 24 Hours): Last Vital Signs Temp 36.7 C 06/15/18 11:05 Pulse 81 06/15/18 11:05 Resp 22 06/15/18 11:05 BP 91/53 L 06/15/18 11:05 Pulse Ox 94 06/15/18 11:05 Results & Data Laboratory Results Microbiology 06/09/18 07:08 Blood Blood Culture - Final Group B Beta Strep 06/09/18 07:33 Blood Blood Culture - Final No growth 06/08/18 05:41 Blood Blood Culture - Final Group B Beta Strep 06/08/18 05:56 Blood Blood Culture - Final No growth 06/10/18 07:14 Blood Blood Culture - Preliminary No growth to date. 06/10/18 07:01 Blood Blood Culture - Preliminary No growth to date. 06/07/18 12:24 Blood Blood Culture - Final Group B Beta Strep 06/07/18 12:00 Blood Blood Culture - Final Group B Beta Strep
[2018-06-15] MEDS: TERAZOSIN HCL 1 MG CAP PO SCH (20:51)
[2018-06-15] MEDS: INSULIN GLARGINE SOLOSTAR 100 UNITS/ML 3 ML PEN SC SCH (20:52)
--- NOTE | 2018-06-15 23:01 | Hospitalist Progress Note ---
Date of Service June 15, 2018 Assessment & Plan (1) Prosthetic valve endocarditis: Blood cultures at time of admission grew group B beta hemolytic strep. No valvular vegetations noted on transthoracic echo, but TENNILLE demonstrated vegetation on mechanical aortic valvlve. ID consulted. Repeat blood cultures on 06/08 and 06/09 positive. Repeat blood cultures x 2 on 06/10 negative so far. Receiving IV ceftriaxone. 6 week course of therapy anticipated. PICC line requested. (2) Sepsis due to group B Streptococcus: Met criteria for sepsis at time of admission- fever, tachycardia. Sepsis secondary to endocarditis. (3) Chronic diastolic heart failure: Admission chest x-ray showed CHF. Echo showed normal LVEF, moderate concentric LVH. Probable acute on chronic left ventricular diastolic heart failure. Continue diuretics and other cardiovascular meds. Follow-up chest x-ray today shows improvement. (4) S/P aortic valve replacement: Management of endocarditis as discussed above. Continue warfarin. (5) PAF (paroxysmal atrial fibrillation): Continue metoprolol, amiodarone, warfarin. 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 Paroxysmal atrial fib. Continue warfarin, glycemic management, lipid management. (7) HTN, goal below 150/90: Continue metoprolol, lisinopril, nitrates. (8) CKD (chronic kidney disease), stage III: Serum creatinine 2.41 at time of admission. Creatinine today = 1.81. Probable MAYLIN secondary to sepsis with underlying CKD. Follow. (9) Diabetes type 2, uncontrolled: Not well-controlled; endocarditis may be contributing. Random blood sugar at time of admission was 180. Hgb A1C 8.6. FBS today = 103. Lantus / NovoLog per protocol. (10) Hyperlipidemia: Continue atorvastatin. (11) Hypothyroidism: Continue levothyroxine. (12) DVT prophylaxis: Continue warfarin. (13) Discharge planning issues: Anticipated need for skilled care. Patient would prefer to go home, but willing to consider [facility]. Case Management consulted. Family Medicine follow-up with Dr. Buck. Subjective Recheck for endocarditis and other problems. Pt seen in his room around 1850. Starting to feel better. No fever. Malaise improved. No chest pain. No cough or SOB. No nausea, vomiting, diarrhea. No urinary symptoms. Still needs assistance with ADL's. Review of Systems Other (as noted above) Physical Exam Vital Signs (Past 24 Hours): Last Vital Signs Temp 37.3 C 06/15/18 19:18 Pulse 84 06/15/18 19:18 Resp 18 06/15/18 19:18 BP 132/82 06/15/18 19:18 Pulse Ox 92 06/15/18 19:18 Constitutional: no acute distress Respiratory: no respiratory distress Auscultation: lungs clear to auscultation bilaterally Cardiovascular: Rate/Rhythm: regular rate; + abnormal rhythm Heart Sounds: + abnormal S1 (mechanical valve sounds in aortic position), no gallop and no cardiac rub Vessels: + JVD Extremities: + edema (1+ pretibial); no calf tenderness Gastrointestinal (Abdomen): normal bowel sounds, soft, nontender, no hepatospl enomegaly Musculoskeletal: Extremities: + abnormal strength (RUE + LLE strength 3-4/5) Skin: no rashes, warm and dry Psychiatric: Orientation: alert and oriented x 3 Results & Data Laboratory Results Laboratory Results - last 24 hr 06/15/18 06/15/18 06/15/18 06:54 06:54 06:54 WBC 9.39 RBC 3.72 L Hgb 10.0 L Hct 30.8 L MCV 82.8 MCH 26.9 MCHC 32.5 RDW Std Deviation 51.0 H RDW Coeff of Elizabeth 16.7 H Plt Count 233 MPV 10.1 PT 44.0 H INR 4.8 H Sodium 144 Potassium 3.5 Chloride 110 H Carbon Dioxide 31 Anion Gap 4.0 BUN 40 H Creatinine 1.81 H Est Cr Clr Drug Dosing 45.5 Est GFR ( Amer) 40.9 Est GFR (Non-Af Amer) 35.3 BUN/Creatinine Ratio 21.9 H Glucose 102 H POC Glucose Calcium 8.1 L 06/15/18 06/15/18 06/15/18 07:24 11:24 11:30 WBC RBC Hgb Hct MCV MCH MCHC RDW Std Deviation RDW Coeff of Elizabeth Plt Count MPV PT INR Sodium Potassium Chloride Carbon Dioxide Anion Gap BUN Creatinine Est Cr Clr Drug Dosing Est GFR ( Amer) Est GFR (Non-Af Amer) BUN/Creatinine Ratio Glucose POC Glucose 103 H 137 H 159 H Calcium 06/15/18 06/15/18 16:11 20:44 WBC RBC Hgb Hct MCV MCH MCHC RDW Std Deviation RDW Coeff of Elizabeth Plt Count MPV PT INR Sodium Potassium Chloride Carbon Dioxide Anion Gap BUN Creatinine Est Cr Clr Drug Dosing Est GFR ( Amer) Est GFR (Non-Af Amer) BUN/Creatinine Ratio Glucose POC Glucose 130 H 115 H Calcium
[2018-06-16] MEDS: LEVOTHYROXINE SODIUM 50 MCG TABLET PO SCH (06:08)
[2018-06-16 07:20] LABS: Hematocrit (blood only) 31.2 % (42-52); Hemoglobin 10.1 g/dL (14.0-18.0); Mean Corpuscular Hgb Conc 32.4 g/dL (32-36); Mean Corpuscular Volume 84.6 fL (80-100); Mean Platelet Volume 10.3 fL (7.4-10.4); Platelet Count 252 K/uL (130-400); RDW Coefficient of Variation 16.7 % (11.5-14.5); RDW Standard Deviation 52.2 fL (36.4-46.3); Red Blood Count 3.69 M/uL (4.7-6.1); White Blood Count 8.52 K/uL (4.8-10.8)
[2018-06-16 07:38] LABS: INR 3.5 (0.9-1.1); Prothrombin Time 32.7 Seconds (9.0-12.0)
[2018-06-16 07:52] LABS: BUN Creatinine Ratio 21.8 (10-20); Calcium 7.8 mg/dl (8.5-10.1); Creatinine Clr Calc Pharmacy 47.1 ml/min; Est GFR (African American) 42.9; Potassium 3.6 mmol/L (3.5-5.1)
[2018-06-16] MEDS: DOCUSATE SODIUM 100 MG CAP PO SCH (07:58)
[2018-06-16] MEDS: INSULIN ASPART 100 UNITS/ML 3 ML PEN SC SCH ×3 (07:58→16:49)
[2018-06-16] MEDS: METOPROLOL TARTRATE 25 MG TAB PO SCH (07:58)
[2018-06-16] MEDS: ASPIRIN 81 MG CHEW PO SCH (07:59)
[2018-06-16] MEDS: FOLIC ACID 1 MG TAB PO SCH (07:59)
[2018-06-16] MEDS: AMIODARONE 200 MG TAB PO SCH (07:59)
[2018-06-16] MEDS: FUROSEMIDE 40 MG TAB PO SCH (08:00)
[2018-06-16] MEDS: ISOSORBIDE MONO EXTENDED REL 30 MG TABCR PO SCH (08:00)
[2018-06-16] MEDS: LISINOPRIL 40 MG TAB PO SCH (08:00)
[2018-06-16] MEDS: ATORVASTATIN 40 MG TAB PO SCH (08:00)
[2018-06-16] MEDS: INSULIN GLARGINE SOLOSTAR 100 UNITS/ML 3 ML PEN SC SCH (08:01)
[2018-06-16] MEDS: AMLODIPINE BESYLATE 5 MG TAB PO SCH (08:02)
[2018-06-16] MEDS: cefTRIAXone SODIUM 2,000 MG in DEXTROSE 5% 50 ML IV SCH (09:14)
--- NOTE | 2018-06-16 09:19 | XRay Report ---
XR chest 1V portable CLINICAL HISTORY: picc line placement to left arm line position COMPARISON STUDY: 06/15/2018 FINDINGS: PICC catheter place in superior vena cava. No evidence of pneumothorax. Findings of moderat mikal progressive congestive failure. IMPRESSION: PICC catheter place in superior vena cava. No evidence pneumothorax. Progressive congest phong heart failure The above report was generated using voice recognition software. It may contain grammatical, syntax or spelling errors. Electronically signed by: Zana Romero M.D. 06/16/2018 9:18 AM
--- NOTE | 2018-06-16 10:59 | Pharmacy Report ---
Pharmacy Glycemic Short Note 2 - Date of Service June 16, 2018 - Glycemic Short BSG Results (Last 24 hours): 06/15/18 06/15/18 06/15/18 11:24 11:30 16:11 Glucose POC Glucose 137 H 159 H 130 H 06/15/18 06/16/18 06/16/18 20:44 07:02 07:20 Glucose 101 H POC Glucose 115 H 104 H Outpatient regimen * Novolog 70/30, 26 units at breakfast, 50 units at dinner ASSESSMENT: 06-16: * Patient received total of 66 units of insulin yesterday; of which 40 units were basal (Lantus) insulin. * Fasting BSG within goal range (104 today AM)- so continued with Lantus 20 units this morning and with a scale for this evening. * BSGs from yesterday were all within goal range- therefore continued same CF/CR. Patient continues to eat well and ordered same diabetes diet. 06-15: * Patient received total of 65 units of insulin yesterday, of which 45 units were basal insulin * Fasting BSG within range at 102 mg/dL - will continue with Lantus 20 units this morning ; continue with scale for this evening * Yesterday BSGs only 2 slightly elevated at 165 - 163 mg/dL, all others within range - will continue same CF/CR. Diet seems to be improving this morning will continue to trend 19: * Patient received total of 56 units of insulin yesterday, of which 40 units were basal insulin * Fasting BSG this am slightly elevated this morning at 156 mg/dL - patient is now NPO for TENNILLE this am; will receive 20 units of Lantus this am which is appropriate since BSGs yesterday remained elevated throughout the day even when po intake was poor * Lunchtime BSG 149 mg/dL - patient returns back from TENNILLE, will resume diet when gag reflex returns * Will continue with same CF/CR for now - had been changed yesterday, however since po intake was poor hard to assess if changes should be made * Will adjust Lantus dosing for this evening if patient's BSGs trend downward 3-18: * BSG's ranging 125-200 mg/dL over the last 24 hours - two of the three post- prandial BSG's are >180 mg/dL. Will tighten CHO ratio * Stressors stable PLAN FOR INPATIENT GLYCEMIC CONTROL: * Basal insulin - continue same * Lantus scale SQ bid * give 15 units BSG <100 mg/dL * give 20 units BSGs 100 -160 * give 25 units BSGs > 160mg/dL * Bolus insulin - continue same * NovoLog per scale ACHS or Q6hrs while NPO * Goal Range: Low 110 mg/dL - High 140 mg/dL * Correction Factor: 20 mg/dL/unit * Nutritional / Prandial insulin per carb ratio of 1 unit per 5 grams CHO consumed DISCHARGE RECOMMENDATIONS: * HbA1c = 8.6% This is slightly above the target A1c of less than 7% Patient could benefit from SMBG to determine better insulin titration. However, per senior environmental practice leader note patient is not interested at this time. * Would resume home regimen of Novolog 70/30 mix as long as there is no hypoglycemia at home and if diet remains stable. * Recommend close follow up with out-patient provider to encourage self- monitoring and adjustment of insulin dosing.
[2018-06-16 11:31] VITALS: O2SAT 96
[2018-06-16 15:45] VITALS: TEMP 97.9
--- NOTE | 2018-06-16 16:59 | Hospitalist Progress Note ---
Date of Service June 16, 2018 Assessment & Plan (1) Prosthetic valve endocarditis: Blood cultures at time of admission grew group B beta hemolytic strep. No valvular vegetations noted on transthoracic echo, but TENNILLE demonstrated vegetation on mechanical aortic valvlve. ID consulted. Repeat blood cultures on 06/08 and 06/09 positive. Repeat blood cultures x 2 on 06/10 negative so far. Receiving IV ceftriaxone. 6 week course of therapy anticipated. Received 6th dose by day of discharge; tentatively needs 36 more days of therapy. PICC line placed. Follow with ID (Dr. Juarez) in 2 weeks. (2) Sepsis due to group B Streptococcus: Met criteria for sepsis at time of admission- fever, tachycardia. Sepsis secondary to endocarditis. (3) Chronic diastolic heart failure: Admission chest x-ray showed CHF. Echo showed normal LVEF, moderate concentric LVH. Probable acute on chronic left ventricular diastolic heart failure. Continue diuretics and other cardiovascular meds. Follow-up chest x-ray 06/15 showed improvement. (4) S/P aortic valve replacement: Management of endocarditis as discussed above. INR high due to acute illness + antibiotic therapy. INR 3.5 day of discharge. Titrate warfarin to maintain INR 2-3. (5) PAF (paroxysmal atrial fibrillation): Continue metoprolol, amiodarone, warfarin. 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 Paroxysmal atrial fib. Continue warfarin, glycemic management, lipid management. (7) HTN, goal below 150/90: Continue metoprolol, lisinopril, nitrates. (8) CKD (chronic kidney disease), stage III: Serum creatinine 2.41 at time of admission. Creatinine today = 1.74. Probable MAYLIN secondary to sepsis with underlying CKD. Follow. (9) Diabetes type 2, uncontrolled: Not well-controlled; endocarditis may be contributing. Random blood sugar at time of admission was 180. Usually managed with NovoLog Mix 70/30 + insulin aspartate. Hgb A1C 8.6. FBS day of discharge 104. Transfer on Lantus / NovoLog per protocol. (10) Hyperlipidemia: Continue atorvastatin. (11) Hypothyroidism: Continue levothyroxine. (12) DVT prophylaxis: Continue warfarin. (13) Discharge planning issues: Needs skilled care for PT, OT, IV antibiotics. Case Management consulted. Arrangements being made for transfer to [facility]. Family Medicine follow-up with Dr. Buck. ID follow-up with Dr. Juraez in 2 weeks. Please call office for appt. Subjective Recheck for endocarditis and other problems. Pt seen in his room around 1645. Feels better. No fever. Malaise improved. No chest pain. No cough or SOB. No nausea, vomiting, diarrhea. No urinary symptoms. Still needs assistance with ADL's. Physical Exam Vital Signs (Past 24 Hours): Last Vital Signs Temp 36.6 C 06/16/18 15:44 Pulse 81 06/16/18 15:44 Resp 20 06/16/18 15:44 BP 147/71 H 06/16/18 15:44 Pulse Ox 96 06/16/18 15:44 Constitutional: no acute distress Respiratory: no respiratory distress Auscultation: lungs clear to auscultation bilaterally Cardiovascular: Rate/Rhythm: regular rate; + abnormal rhythm Heart Sounds: + abnormal S1 (mechanical valve sounds in aortic position), no gallop and no ca rdiac rub Vessels: + JVD Extremities: + edema (1+ pretibial); no calf tenderness Gastrointestinal (Abdomen): normal bowel sounds, soft, nontender, no hepatosplenomegaly Musculoskeletal: Extremities: + abnormal strength (RUE + LLE strength 3-4/5) and + upper extremity abnormal to inspection (PICC LUE) Skin: no rashes, warm and dry Psychiatric: Orientation: alert and oriented x 3 Results & Data Laboratory Results Laboratory Results - last 24 hr 06/15/18 06/16/18 06/16/18 20:44 07:02 07:02 WBC 8.52 RBC 3.69 L Hgb 10.1 L Hct 31.2 L MCV 84.6 MCH 27.4 MCHC 32.4 RDW Std Deviation 52.2 H RDW Coeff of Elizabeth 16.7 H Plt Count 252 MPV 10.3 PT 32.7 H INR 3.5 H Sodium Potassium Chloride Carbon Dioxide Anion Gap BUN Creatinine Est Cr Clr Drug Dosing Est GFR ( Amer) Est GFR (Non-Af Amer) BUN/Creatinine Ratio Glucose POC Glucose 115 H Calcium 06/16/18 06/16/18 06/16/18 07:02 07:20 11:23 WBC RBC Hgb Hct MCV MCH MCHC RDW Std Deviation RDW Coeff of Elizabeth Plt Count MPV PT INR Sodium 144 Potassium 3.6 Chloride 110 H Carbon Dioxide 30 Anion Gap 4.0 BUN 38 H Creatinine 1.74 H Est Cr Clr Drug Dosing 47.1 Est GFR ( Amer) 42.9 Est GFR (Non-Af Amer) 37.0 BUN/Creatinine Ratio 21.8 H Glucose 101 H POC Glucose 104 H 145 H Calcium 7.8 L
--- NOTE | 2018-06-16 17:23 | Discharge Summary ---
Date of Service Date of admission: 06/07/18 Date of discharge: 06/16/18 Admission HPI Per Admitting Provider 77-year-old obese male with significant past medical history of status post aortic valve replacement on anticoagulation, paroxysmal atrial fibrillation, type 2 diabetes on insulin, history of cerebrovascular disease with right-sided paresis, hypertension, hyperlipidemia, and hypothyroidism apparently has been complaining of feeling unwell and shortness of breath since last evening. He was noted to have more shortness of breath and confused this morning as per the nephew and he was brought into emergency room for further evaluation. He denies any chest pain and/or palpitation, no abdominal distention, pain, nausea and/or vomiting, no fever and/or chills, and no problem with urine and her bowel habit. On the way he required BiPAP to maintain saturation and his blood pressure was systolic more than 100 200 and he was given Nitropaste in the ER his blood pressure dropped to 90s also noted to have fever of 38C. Chest x-ray did show probable congestion but no pneumonia and apparent blood counts were unremarkable. His INR was more than 10. He was given BiPAP, intravenous vancomycin and Levaquin and was advised for admission. Admission Exam Per Admitting Provider Physical Exam: Moderate distress at rest on BiPAP Constitutional: WD/WN, vitals as above well developed, well nourished, + acute distress, + in distress, + diaphoretic, + overweight and + edematous Eyes: PERRL, conjunctivae normal, anicteric sclerae ENMT: external ear and nose normal, oropharynx normal Neck: trachea midline, no thyromegaly Respiratory: + respiratory distress, + cough and + tachypneic Auscultation: + diminished lung sounds and + crackles Cardiovascular: Rate/Rhythm: regular rate and regular rhythm Heart Sounds: normal S1, normal S2 and + murmur (Mechanical valve sound with 2/6 ejection systolic murmur over precordium) Extremities: + edema (1-2+ edema bilateral lower legs with chronic skin changes and redness with increased local temperature) Gastrointestinal (Abdomen): Inspection/Auscultation: abdomen normal to inspection, + abdomen distended and normal bowel sounds Percussion/Palpation: abdomen soft Neurologic: Alert and awake. Pleasantly confused. 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 No valvular vegetations noted on transthoracic echo, but TENNILLE demonstrated vegetation on mechanical aortic valvlve. ID consulted. Repeat blood cultures on 06/08 and 06/09 positive. Repeat blood cultures x 2 on 06/10 negative so far. Receiving IV ceftriaxone. 6 week course of therapy anticipated. Received 6th dose by day of discharge; tentatively needs 36 more days of ther apy. PICC line placed. Follow with ID (Dr. Juarez) in 2 weeks. (2) Sepsis due to group B Streptococcus: Met criteria for sepsis at time of admission- fever, tachycardia. Sepsis secondary to endocarditis. (3) Chronic diastolic heart failure: Admission chest x-ray showed CHF. Echo showed normal LVEF, moderate concentric LVH. Probable acute on chronic left ventricular diastolic heart failure. Continue diuretics and other cardiovascular meds. Follow-up chest x-ray 06/15 showed improvement. (4) S/P aortic valve replacement: Management of endocarditis as discussed above. INR high due to acute illness + antibiotic therapy. INR 3.5 day of discharge. Titrate warfarin to maintain INR 2-3. (5) PAF (paroxysmal atrial fibrillation): Continue metoprolol, amiodarone, warfarin. 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 Paroxysmal atrial fib. Continue warfarin, glycemic management, lipid management. (7) HTN, goal below 150/90: Continue metoprolol, lisinopril, nitrates. (8) CKD (chronic kidney disease), stage III: Serum creatinine 2.41 at time of admission. Creatinine today = 1.74. Probable MAYLIN secondary to sepsis with underlying CKD. Follow. (9) Diabetes type 2, uncontrolled: Not well-controlled; endocarditis may be contributing. Random blood sugar at time of admission was 180. Usually managed with NovoLog Mix 70/30 + insulin aspartate. Hgb A1C 8.6. FBS day of discharge 104. Transfer on Lantus / NovoLog per protocol. (10) Hyperlipidemia: Continue atorvastatin. (11) Hypothyroidism: Continue levothyroxine. (12) DVT prophylaxis: Continue warfarin. (13) Discharge planning issues: Needs skilled care for PT, OT, IV antibiotics. Case Management consulted. Arrangements being made for transfer to [facility]. Family Medicine follow-up with Dr. Buck. ID follow-up with Dr. Juarez in 2 weeks. Please call office for appt. Total Time Total Time Spent Total Time Spent (In Minutes): 45 Discharge Plan Discharge Items Patient Disposition: Transfer [facility] Fac Reason For Visit: fever Discharge Diagnosis: endocarditis mechanical aortic valve due to group B beta hemolytic Strep Condition: Fair Discharge Goals: Decrease discomfort and Improve disease control Activity: As commented below Activity Comment: as tolerated with assistance Non-emergency contact: Primary Care Provider, Hospitalist and Specialist Call non-emergency contact if: you have any medication questions and your temperature is above 101 Follow-up/Referrals: Heide Juarez DO [Physician] - (Please call office for appointment in 2 weeks.) Alise Buck MD [Primary Care Provider] - Diet: Carb Consistent or DM2 and Heart Healthy Addtl Provider Instructions: fall precautions aspiration precautions skin precautions routine PICC care INR daily until stable, then per your protocol INR range 2-3 for mechanical aortic valve replacement + AF Please check CBC and BMP weekly. BSG's AC + HS Lantus 20 units SQ BID hold BSG < 100 NovoLog scale with meals BSG NovoLog units SQ < 101 none 101-140 4 141-180 8 > 181 10 Thank you for receiving this patient in transfer. Please call if you have any questions. Yeyo Cee Prescriptions: New warfarin 2 mg tablet 2 mg PO DAILY Qty: 30 RF: 5 ceftriaxone 2 gram recon soln 2 gm IV DAILY 36 Days Qty: 36 RF: 0 Lantus Solostar U-100 Insulin 100 unit/mL (3 mL) insulin pen 20 units SQ BID Qty: 15 RF: 0 Novolog Flexpen U-100 Insulin 100 unit/mL (3 mL) insulin pen 4 units subcut TIDM Qty: 15 RF: 0 Continued furosemide 40 mg Tablet 80 mg PO QAM RF: 0 atorvastatin 40 mg Tablet 40 mg PO QAM RF: 0 amiodarone 200 mg Tablet 100 mg PO QAM RF: 0 amlodipine 5 mg Tablet 2.5 mg PO QAM RF: 0 aspirin [Aspirin Low Dose] 81 mg Tablet,Delayed Release (Dr/Ec) 40.5 mg PO AMHS RF: 0 isosorbide mononitrate 60 mg Tablet Extended Release 24 Hr 90 mg PO QAM RF: 0 levothyroxine 50 mcg Tablet 50 mcg PO HS RF: 0 metoprolol tartrate 50 mg Tablet 25 mg PO AMHS RF: 0 nitroglycerin 0.4 mg Tablet, Sublingual 0.4 mg Sublingual DIRECTED PRN (Reason: Chest Pain) RF: 0 docusate sodium 100 mg Capsule 100 mg PO AMHS RF: 0 folic acid 1 mg Tablet 1 mg PO QAM RF: 0 lisinopril 40 mg Tablet 40 mg PO QAM RF: 0 terazosin 2 mg Capsule 2 mg PO HS RF: 0 Discontinued Novolog Mix 70-30FlexPen U-100 100 unit/mL (70-30) Insulin Pen 26 units SUBCUT QAM RF: 0 warfarin 2.5 mg tablet 1 dose PO DIRECTED RF: 0 insulin asp prt-insulin aspart 100 unit/mL (70-30) insulin pen 50 units subcut QDD RF: 0 Stand-Alone Forms: My [facility] Skilled Items Patient informed of condition?: Yes DNR: Yes Discharge Level of Care: Skilled Communicable Disease: No Discharge Prognosis: Improving Admission Data Admit Date/Time: 06/07/18 13:49 Attending Provider: Yeyo Cee Admit Provider: Rossy Reyes Primary Care Provider: Alise Buck Other Providers: Rossy Reyes ; Julio West ; Heide Juarez ; Miki Ballard ; Amee Pate Service: Telemetry
[2018-06-16 17:39] VITALS: PULSE 73
[2018-06-16 17:40] VITALS: BP 91/53
== END 2018-06-16 18:52 | DRG 314 ==
LOC: ED 11:46 → SUATTDRO 13:49 → 2S 13:49
PROC: CLS.TEE (2018-06-13 10:00)

== ENCOUNTER 2018-10-25 11:46 | Inpatient (IN) ==
--- OUTSIDE RECORDS SUMMARY | 2018-10-25 11:50 | External Medical Summary | Continuity of Care Document ---
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 Cassy.DDrea Start: 04-Jul-2018 Refills: 0 15 ML Bottle Docusate Sodium 100 MG Oral Capsule; take 1 capsule twice a day , M.D. Start: 04-Jul-2018 Refills: 0 Lisinopril 40 MG Oral Tablet; TAKE 1 AND 1/2 TABLETS DAILY. , M.D. Start: 03-Jul-2018 Refills: 0 45 Tablet Bottle Folic Acid 1 MG Oral Tablet; Take 1 tablet daily , M.D. Start: 03-Jul-2018 Quantity: 30 Refills: 0 Nitrostat 0.4 MG Sublingual Tablet Subli ngual; PLACE 1 TABLET UNDER THE TONGUE EVERY 5 MINUTES FOR UP TO 3 DOSES NEEDED FOR CHEST PAIN.CALL 911 IF PAIN PERSISTS. , M.Vinay Start: 03-Jul-2018 Refills: 5 Metoprolol Tartrate 50 MG Oral Tablet; Take 1 tablet twice d Esau garcia Start: 03-Jul-2018 Quantity: 180 Refills: 3 Levothyroxine Sodium 50 MCG Oral Tablet; TAKE 1 TABLET DAILY . , M.DDrea Start: 03-Jul-2018 Quantity: 30 Refills: 5 Isosorbide Mononitrate ER 60 MG Oral Tab let Extended Release 24 Hour; TAKE 1 TABLET DAILY DIRECTED. M.DDrea Start: 03-Jul-2018 Refills: 0 Aspirin Low Dose 81 MG Oral Tablet Chewable; CHEW AND SWALLOW 1 TABLET DAILY. , M.DDrea Start: 03-Jul-2018 Refills: 0 amLODIPine Besylate 5 MG Oral Tablet; take 1 tablet by mouth once daily , M.D. Start: 03-Jul-2018 Quantity: 1 90 Tablet Bottle Refills: 0 Amiodarone HCl - 200 MG Oral Tablet; TAKE 1 TABLET DAILY. , M.DDrea Start: 03-Jul-2018 Refills: 0 Atorvastatin Calcium 40 MG Oral Tablet; TAKE 1 TABLET DAILY. , M.DDrea Start: 03-Jul-2018 Quantity: 30 90 Tablet Bottle Refills: 5 Furosemide 40 MG Oral Tablet; take 1 & 1/2 tablets daily , M .D. Start: 03-Jul-2018 Quantity: 1 Refills: 3 Lantus SoloStar 100 UNIT/ML Subcutaneous Solution Pen- injector; 40 U DAILY , M.D. Start: 03-Jul-2018 Quantity: 1 5 x 3 ML Pen Refills: 5 cefTRIAXone Sodium 2 GM Injection Solution Reconstitut ed; USE DIRECTED. M.DDrea Start: 03-Jul-2018 Refills: 0 Warfarin Sodium 2 MG Oral Tablet; Take 1 tablet daily , M.D. Start: 03-Jul-2018 Refills: 0 Procedures History of Cataract Extraction Status: C ompleted Immunizations Immunizations not documented Family History Brother Family history of lung cancer (V16.1) (Z80.1) Status: Active Family history of Kidney transplanted (V42.0) (Z94.0) Status : Active Social History - Smoking Status Former smoker Plan of Treatment Planned Observations Planned Goals not documented Results No Known Results Results not documented Encounters Appointment; Heide Juarez DO 21-Jul-2018 14:15 Encounter Diagnosis: Problem not documented Appointment; Nevaeh Diaz CRNP 04-Jul-2018 8:30 Encounter Diagnosis: Problem not documented
[2018-10-25] MEDS ORDERED: dilTIAZem HCl 5 MG/ML 5 ML VIAL IV STA (11:55)
[2018-10-25] MEDS ORDERED: dilTIAZem HCl 5 MG/ML 5 ML VIAL IV ONE (11:59)
[2018-10-25 12:11] LABS: iSTAT Creatinine 2.2 mg/dl (0.6-1.3); iSTAT Hemoglobin 13.9 g/dl (14.0-18.0); iSTAT Ionized Calcium 1.04 mmol/l (1.12-1.32); iSTAT Potassium 3.9 mEq/L (3.3-5.0)
[2018-10-25] MEDS ORDERED: PIPERACILL/TAZOBAC CONSULT ACTIVE PRN (12:14)
[2018-10-25] MEDS ORDERED: VANCOMYCIN CONSULT ACTIVE PRN ×2 (12:14→23:15)
[2018-10-25] MEDS ORDERED: VANCOMYCIN HCL 2,500 MG in SODIUM CHLORIDE 0.9% 500 ML IV ONE (12:14)
[2018-10-25] MEDS ORDERED: PIPERACILLIN/TAZOBACTAM 4.5 GM/120 ML BAG IV ONE (12:14)
[2018-10-25] MEDS ORDERED: SODIUM CHLORIDE 0.9% 500 ML IV ONE (12:20)
[2018-10-25] MEDS ORDERED: ONDANSETRON INJ 2 MG/ML 2 ML VIAL IV STA (12:20)
[2018-10-25] MEDS ORDERED: ONDANSETRON INJ 2 MG/ML 2 ML VIAL ONE (12:21)
--- NOTE | 2018-10-25 12:24 | XRay Report ---
XR chest 1V portable CLINICAL HISTORY: Sepsis COMPARISON STUDY: 07/10/2018 FINDINGS: The study is rotated. There are postsurgical changes of a midline sternotomy and valvular r eplacement. There is persistent diffuse elevation of the interstitium suggestive congestive failure/f luid overload. There is no lobar consolidation.[Basilar opacities are likely atelectatic. Small pleur al effusions cannot be excluded IMPRESSION: Continued radiographic evidence of mild congestive failure/fluid overload. No evidence of lobar consolidation Electronically signed by: Jaylon Alvarez M.D. 10/25/2018 12:23 PM
[2018-10-25 12:31] LABS: Basophils # (auto) 0.03 K/uL (0-0.2); Basophils % (auto) 0.2 %; Eosinophils # (auto) 0.01 K/uL (0-0.5); Eosinophils % (auto) 0.1 %; Hematocrit (blood only) 38.8 % (42-52); Hemoglobin 12.6 g/dL (14.0-18.0); Immature Granulocytes # (auto) 0.05 K/uL (0.00-0.02); Immature Granulocytes % (auto) 0.3 %; Lymphocytes # (auto) 1.06 K/uL (1.2-3.4); Mean Corpuscular Hgb Conc 32.5 g/dL (32-36); Mean Corpuscular Volume 83.6 fL (80-100); Monocytes # (auto) 0.56 K/uL (0.11-0.59); Monocytes % (auto) 3.2 %; Neutrophils # (auto) 15.86 K/uL (1.4-6.5); Neutrophils % (auto) 90.2 %; Platelet Count 135 K/uL (130-400); RDW Coefficient of Variation 17.2 % (11.5-14.5); RDW Standard Deviation 52.5 fL (36.4-46.3); Red Blood Count 4.64 M/uL (4.7-6.1); White Blood Count 17.57 K/uL (4.8-10.8)
[2018-10-25 12:34] LABS: Oxygen Saturation VBG 72.1 %; pH VBG 7.41 (7.36-7.41)
[2018-10-25 12:47] LABS: INR 1.7 (0.9-1.1); Partial Thromboplastin Ratio 1.2; Partial Thromboplastin Time 31.3 Seconds (21.0-31.0); Prothrombin Time 16.5 Seconds (9.0-12.0)
[2018-10-25 12:49] LABS: Appearance Urine Clear (Clear); Bacteria Urine Automated Negative (Negative); Bilirubin Urine Negative (Negative); Blood Urine 1+ (Negative); Color Urine Yellow; Glucose Urine UA 2+ (Negative); Ketones Urine Negative (Negative); Leukocyte Esterase Urine Negative (Negative); Nitrite Urine Negative (Negative); Protein Urine Negative (Negative); RBC Urine Automated 0-4 /hpf (0-4); Specific Gravity Urine 1.019 (1.000-1.030); Urobilinogen Urine Negative (Negative)
[2018-10-25 12:56] LABS: Albumin Globulin Ratio 0.7 (0.9-2); Albumin Level 3.2 gm/dl (3.4-5.0); Bilirubin Direct 0.3 mg/dl (0-0.2); Bilirubin,Total 0.9 mg/dl (0.2-1); Calcium 8.7 mg/dl (8.5-10.1); Est GFR (African American) 28.3; Est GFR (Non-African American) 24.4; Globulin 4.9 gm/dl (2.5-4.0); Magnesium 1.8 mg/dl (1.8-2.4); Phosphorus 2.2 mg/dl (2.5-4.9); Potassium 3.9 mmol/L (3.5-5.1); Total Protein 8.1 gm/dl (6.4-8.2)
[2018-10-25] MEDS ORDERED: Heparin IV Low Dose WITH Bolus IV STA (13:32)
[2018-10-25] MEDS ORDERED: HEPARIN SOD (PORCINE) 1000 UNIT/ML 10 ML VIAL ONE (13:38)
[2018-10-25] MEDS ORDERED: ACETAMINOPHEN 1,000 MG/100 ML VIAL IV STA (13:39)
[2018-10-25] MEDS ORDERED: HEPARIN SODIUM/DEXTROSE 25,000 UNITS/500 ML BAG IV SCH ×2 (13:45→16:06)
[2018-10-25] MEDS ORDERED: FUROSEMIDE 40 MG/4 ML VIAL IV STA ×2 (14:21→18:53)
--- NOTE | 2018-10-25 14:36 | Cardiology Consultation ---
Date of Consultation October 25, 2018 Assessment & Plan (1) Heart failure, diastolic, with acute decompensation: Recent exam and history is consistent with mild heart failure however current presentation is notable for signs and symptoms of sepsis with elevated white cell count and febrile illness. Cautious fluid resuscitation with diuresis initiated given renal 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 Broad-spectrum antibiotics has been started Blood pressure soft after recent treatment with diltiazem for tachycardia Plan: Hold lisinopril, terazosin, isosorbide, spironolactone We will change metoprolol tartrate to metoprolol succinate for heart rate and heart failure treatment Treat underlying presumed infectious process with concerns raise given recent history of sepsis/endocarditis Echocardiogram at bedside today initial images demonstrate normal prosthetic valve velocities and similar ejection fraction to prior study of July Once hemodynamically stability assured further diuresis will be warranted (2) Acute renal failure superimposed on stage 3 chronic kidney disease: (3) Lactic acidosis: Elevated white cell count and presentation suggest sepsis process. Fluid resuscitation to proceed cautiously given volume overload. (4) Cellulitis of right lower extremity: (5) LBBB (left bundle branch block): (6) Chronic atrial fibrillation: Patient in atrial fibrillation persistently since July. As above we will change metoprolol to long-acting format Heart rate and ventricular response rate elevated due to acute illness (7) Respiratory failure: Multifactorial etiology chest x-ray with only mild increased interstitial markings (8) S/P aortic valve replacement: Echo complete pending. Patient has mechanical prosthesis with sub therapeutic INR, heparin ordered History of Present Illness History of Present Illness 78-year-old male with complex issues 1. Severe aortic 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 with an ascending aortic aneurysm status post May 2007 aortic valve replacement and ascending aorta repair with a #[address] [facility] composite graft with reimplantation of the epicardial coronary arteries, cardiac tamponade secondary to a large pericardial effusion status post emergent evacuation with redo sternotomy on 06/29/2007 2. Mild ASCVD by May 01, 2007 catheterization. 20-30% mid LAD stenosis, 20% diagonal stenosis, 30% LCX stenosis, and a 20-40% RCA stenosis with EF of 45% by LV gram 3. June 13, 2015 diagnostic cardiac catheterization at [facility] revealed mild nonobstructive coronary artery disease with normally functioning mechanical aortic valve. Specific angiography revealed an ectatic LM, 40% mid LAD lesion, 40% mid LCX stenosis, and a dominant RCA with 40% mid vessel stenosis. 4. Hospitalized at [facility] in May 2018 with Group B strep prosthetic valve endocarditis. Completed 6 weeks of IV Rocephin as of 07/21/2018. 5. Chronic diastolic congestive heart failure 6. History of iron deficiency. 7. 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 8. Paroxysmal atrial fibrillation now persistent since July 2018 9. 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 Mild carotid occlusive disease 11. Hypertension 12. Dyslipidemia 13. Type II diabetes mellitus 14. Chronic renal 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 15. COPD with past tobacco abuse 16. Hypothyroidism 17. Obesity Patient was seen in the emergency room currently wearing BiPAP limiting his historical accuracy. Family members are present in her able to add additional information. Per patient and records he is had a recent decline, with increasing lower extremity edema abdominal girth. He was seen in the outpatient cardiology clinic yesterday and arranged to have a blood work prior to change in diuretics. Today felt "worse this morning dizziness lightness confused and febrile to 38.5. He presented to the emergency room findings are felt to be consistent with septic presentation with elevated white cell count erythema and possible cellulitis lower extremity elevated ventricular response rate atrial fibrillation. Initial blood pressures were elevated though he was treated with 15 mg IV diltiazem for elevated heart rate and substance has had lower blood pressures. He is now wearing BiPAP for oxygen support. He does appear awake and and and nods appropriately to questioning. Per family patient's been compliant with medications. Per review of records he has lapsed into atrial fibrillation beginning back this spring, previously managed in sinus rhythm with amiodarone but in atrial fibrillation persistently since July. No other inciting issues or concerns No bleeding difficulties. Appetite is generally stable. Patient is predominantly limited to minimal activity uses a scooter cart for mobility Allergies Allergy/AdvReac Type Severity Reaction Status Date / Time No Known Allergies Allergy Unverified 10/25/18 14:08 Home Medications Home Medications Medication Instructions Recorded Confirmed Type atorvastatin 40 mg PO QAM 02/23/18 10/25/18 History docusate sodium 100 mg PO AMHS 02/23/18 10/25/18 History folic acid 1 mg PO QAM 02/23/18 10/25/18 History isosorbide mononitrate 90 mg PO QAM 02/23/18 10/25/18 History lisinopril 40 mg PO QAM 02/23/18 10/25/18 History nitroglycerin 0.4 mg SUBLINGUAL DIRECTED PRN 02/23/18 10/25/18 History terazosin 2 mg PO HS 02/24/18 10/25/18 History aspirin [Aspirin Childrens] 0.5 tab PO AMHS 07/10/18 10/25/18 History insulin glargine [Lantus Solostar 20 units SQ AMHS 07/10/18 10/25/18 History U-100 Insulin] ferrous sulfate 325 mg PO QAM 10/25/18 10/25/18 History furosemide 80 mg PO BID 10/25/18 10/25/18 History insulin lispro [Humalog KwikPen 4 unit SUBCUT TID 10/25/18 10/25/18 History Insulin] levothyroxine [Synthroid] 75 mcg PO QAM 10/25/18 10/25/18 History metoprolol tartrate 37.5 mg PO AMHS 10/25/18 10/25/18 History spironolactone 12.5 mg PO QAM 10/25/18 10/25/18 History warfarin 2.5 mg PO DAILY 10/25/18 10/25/18 History Patient History Medical History Coronary artery disease (Chronic) T2DM (type 2 diabetes mellitus) (Chronic) HTN (hypertension) (Chronic) History of endocarditis (Chronic) 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 weeks 05/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 LBBB (left bundle branch block) (Chronic) PVD (peripheral vascular disease) (Chronic) 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 (Chronic) senior living current use of anticoagulant (Chronic) INR goal 2-3 Chronic atrial fibrillation (Chronic) Cerebrovascular disease (Chronic) Chronic diastolic heart failure (Chronic) ASCVD (arteriosclerotic cardiovascular disease) (Chronic) Septicemia due to group B Streptococcus (Resolved) Hypothyroidism (Chronic) Hyperlipidemia (Chronic) PAF (paroxysmal atrial fibrillation) (Chronic) Diabetes type 2, uncontrolled (Chronic) Surgical History History of cardiac catheterization (Chronic) Nonobstructive CAD S/P aortic valve replacement (Chronic) Family History Other Unknown family medical history Social History Preferred Language: Luxembourgish Communication Ability: Effective Beliefs That Will Affect Care: None marital status: Current Living Situation: Spouse Current Living Situation Comment: Lives with and aunt Other Information That Helps Us Care for You: Yes Feels Safe at Home: Yes Safety Concerns: Feels Safe At This Time Smoking Status: Never smoker Tobacco Type: cigars Cigarettes Per Day: 1 cigar per day Second Hand Exposure: No Hx Alcohol Use: No Hx Substance Use: No Physical Exam Constitutional: + ill appearing and + obese Wearing BiPAP supplementation mask Eyes: PERRL, conjunctivae normal, anicteric sclerae Neck: + thick neck Respiratory: Auscultation: + diminished lung sounds Cardiovascular: Rate/Rhythm: + irregularly irregular Heart Sounds: normal S1 and normal S2 Extremities: + edema (Moderate bilateral edema right greater than left) There are crisp mechanical valve sounds present Gastrointestinal (Abdomen): normal bowel sounds, soft, nontender, no hepatosplenomegaly Skin: Chronic induration with erythema of the right leg and thigh greater than left. Weeping excoriations of right ruggiero Neurologic: Patient appears to respond to questioning though exam limited by current illness Results & Data Vital Signs (Past 12 Hours) Vital Signs Temp Pulse Resp BP Pulse Ox 10/25/18 14:33 38.5 C H 10/25/18 14:30 98 H 39 H 92/54 L 98 10/25/18 14:01 104 H 35 H 109/59 L 97 10/25/18 14:00 100 H 38 H 98 10/25/18 13:45 124 H 38 H 153/97 H 100 10/25/18 13:30 131 H 34 H 152/91 H 100 10/25/18 13:22 38.5 C H 10/25/18 13:15 132 H 40 H 156/88 H 100 10/25/18 13:00 104 H 36 H 144/94 H 100 10/25/18 12:45 101 H 41 H 143/81 H 100 10/25/18 12:31 40 H 165/95 H 100 10/25/18 12:30 32 H 100 10/25/18 12:21 119 H 34 H 168/103 H 97 10/25/18 12:16 109 H 40 H 168/121 H 100 10/25/18 12:15 107 H 36 H 97 10/25/18 12:07 108 H 45 H 172/91 H 100 10/25/18 12:05 40 H 100 10/25/18 12:00 155 H 48 H 192/151 H 96 10/25/18 11:53 139 H 37 H 94 10/25/18 11:50 38 C H 48 H 177/113 H 100 Laboratory Results Laboratory Results - last 24 hr 10/25/18 10/25/18 10/25/18 11:59 12:13 12:13 WBC 17.57 H RBC 4.64 L Hgb 12.6 L POC Hgb 13.9 L Hct 38.8 L POC Hct 41 L MCV 83.6 MCH 27.2 MCHC 32.5 RDW Std Deviation 52.5 H RDW Coeff of Elizabeth 17.2 H Plt Count 135 MPV 11.0 H Immature Gran % (Auto) 0.3 Neut % (Auto) 90.2 Lymph % (Auto) 6.0 [place] % (Auto) 3.2 Eos % (Auto) 0.1 Baso % (Auto) 0.2 Immature Gran # (Auto) 0.05 H Neut # (Auto) 15.86 H Lymph # (Auto) 1.06 L [place] # (Auto) 0.56 Eos # (Auto) 0.01 Baso # (Auto) 0.03 PT 16.5 H INR 1.7 H APTT 31.3 H PTT Ratio 1.2 VBG pH VBG pCO2 VBG pO2 VBG HCO3 VBG O2 Saturation VBG Base Excess Barometric Pressure POC Sodium 140 Sodium POC Potassium 3.9 Potassium POC Chloride 100 L Chloride Carbon Dioxide POC Total CO2 26 Anion Gap POC Anion Gap 19.0 POC BUN 32 H BUN Creatinine POC Creatinine 2.2 H Est Cr Clr Drug Dosing Est GFR ( Amer) Est GFR (Non-Af Amer) BUN/Creatinine Ratio Glucose POC Glucose (other) 303 H Lactate Calcium POC Ioniz Calcium Rose 1.04 L Phosphorus Magnesium Total Bilirubin Direct Bilirubin AST ALT Alkaline Phosphatase NT-Pro-B Natriuret Pep Total Protein Albumin Globulin Albumin/Globulin Ratio Urine Color Urine Appearance Urine pH Ur Specific [place] Urine Protein Urine Glucose (UA) Urine Ketones Urine Blood Urine Nitrite Urine Bilirubin Urine Urobilinogen Ur Leukocyte Esterase Urine WBC (Auto) Urine RBC (Auto) U Hyaline Cast (Auto) U Epithel Cells (Auto) Urine Bacteria (Auto) 10/25/18 10/25/18 10/25/18 12:13 12:13 12:13 WBC RBC Hgb POC Hgb Hct POC Hct MCV MCH MCHC RDW Std Deviation RDW Coeff of Elizabeth Plt Count MPV Immature Gran % (Auto) Neut % (Auto) Lymph % (Auto) [place] % (Auto) Eos % (Auto) Baso % (Auto) Immature Gran # (Auto) Neut # (Auto) Lymph # (Auto) [place] # (Auto) Eos # (Auto) Baso # (Auto) PT INR APTT PTT Ratio VBG pH 7.41 VBG pCO2 41 VBG pO2 39 VBG HCO3 26 VBG O2 Saturation 72.1 VBG Base Excess 1.0 Barometric Pressure 734.3 POC Sodium Sodium 140 POC Potassium Potassium 3.9 POC Chloride Chloride 105 Carbon Dioxide 27 POC Total CO2 Anion Gap 8.0 POC Anion Gap POC BUN BUN 32 H Creatinine 2.44 H POC Creatinine Est Cr Clr Drug Dosing 34.0 Est GFR ( Amer) 28.3 Est GFR (Non-Af Amer) 24.4 BUN/Creatinine Ratio 13.0 Glucose 300 H POC Glucose (other) Lactate 3.7 H* Calcium 8.7 POC Ioniz Calcium Rose Phosphorus 2.2 L Magnesium 1.8 Total Bilirubin 0.9 Direct Bilirubin 0.3 H AST 24 ALT 25 Alkaline Phosphatase 114 NT-Pro-B Natriuret Pep 6749 H Total Protein 8.1 Albumin 3.2 L Globulin 4.9 H Albumin/Globulin Ratio 0.7 L Urine Color Urine Appearance Urine pH Ur Specific [place] Urine Protein Urine Glucose (UA) Urine Ketones Urine Blood Urine Nitrite Urine Bilirubin Urine Urobilinogen Ur Leukocyte Esterase Urine WBC (Auto) Urine RBC (Auto) U Hyaline Cast (Auto) U Epithel Cells (Auto) Urine Bacteria (Auto) 10/25/18 12:30 WBC RBC Hgb POC Hgb Hct POC Hct MCV MCH MCHC RDW Std Deviation RDW Coeff of Elizabeth Plt Count MPV Immature Gran % (Auto) Neut % (Auto) Lymph % (Auto) [place] % (Auto) Eos % (Auto) Baso % (Auto) Immature Gran # (Auto) Neut # (Auto) Lymph # (Auto) [place] # (Auto) Eos # (Auto) Baso # (Auto) PT INR APTT PTT Ratio VBG pH VBG pCO2 VBG pO2 VBG HCO3 VBG O2 Saturation VBG Base Excess Barometric Pressure POC Sodium Sodium POC Potassium Potassium POC Chloride Chloride Carbon Dioxide POC Total CO2 Anion Gap POC Anion Gap POC BUN BUN Creatinine POC Creatinine Est Cr Clr Drug Dosing Est GFR ( Amer) Est GFR (Non-Af Amer) BUN/Creatinine Ratio Glucose POC Glucose (other) Lactate Calcium POC Ioniz Calcium Rose Phosphorus Magnesium Total Bilirubin Direct Bilirubin AST ALT Alkaline Phosphatase NT-Pro-B Natriuret Pep Total Protein Albumin Globulin Albumin/Globulin Ratio Urine Color Yellow Urine Appearance Clear Urine pH 5.0 Ur Specific [place] 1.019 Urine Protein Negative Urine Glucose (UA) 2+ H Urine Ketones Negative Urine Blood 1+ H Urine Nitrite Negative Urine Bilirubin Negative Urine Urobilinogen Negative Ur Leukocyte Esterase Negative Urine WBC (Auto) 1-5 Urine RBC (Auto) 0-4 U Hyaline Cast (Auto) 1-5 U Epithel Cells (Auto) 5-10 H Urine Bacteria (Auto) Negative Diagnostic Findings Echocardiogram August 15, 2018 Left bundle branch block configuration of septal contraction otherwise EF 5% Normally functioning mechanical prosthesis peak aortic valve velocity 2.4 m/s (1) Respiratory failure Chronicity: acute Respiratory failure complication: unspecified whether with hypoxia or hypercapnia Qualified Code(s): J96.00 - Acute respiratory failure, unspecified whether with hypoxia or hypercapnia
--- NOTE | 2018-10-25 14:37 | History & Physical Report ---
Date of Service October 25, 2018 Assessment & Plan (1) Acute respiratory distress: (2) Severe sepsis: (3) Acute metabolic encephalopathy: (4) Lactic acidosis: (5) Cellulitis of right lower extremity: This is a 78-year-old male who has significant past medical history of CAD, history of prosthetic AVR, paroxysmal atrial fibrillation, long-term anticoagulation on warfarin, T2DM, HTN, HLD, hypothyroidism, PVD, anemia of chronic disease, morbid obesity, history of prosthetic valve endocarditis, ascending aortic aneurysm who presents to [facility] ED due to feeling x1 day. On admission patient met severe sepsis criteria per current CMS guidelines Patient was febrile temp 38.5, leukocytosis 17,000, tachypneic and had A. fib with RVR heart rates in the 140s to 150 Lactic acid elevated at 3.6, blood cultures obtained Patient received broad-spectrum IV antibiotics with vancomycin and Zosyn He received IVF 700ml per ED nurse, patient clinically appears volume overloaded so IVF administered cautiously Due to patient's tachypnea he did require placement of BiPAP, but there is been no documented hypoxia Due to patient's A. fib with RVR he was administered diltiazem IV 15 mg which likely caused hypotensive response dropping patient's blood pressures into systolically high 90s to low 100s, and heart rate sustaining in low 100s Source of infection: Possible RLE Cellulitis; blood culture pending, Pt with recent hx of prosthetic valve endocarditis diagnosed 05/2018 requiring 6 weeks of IV Rocephin Urine appears negative, CXR absent of infiltrate admit to PCU Continue broad-spectrum IV antibiotics with daptomycin and Zosyn, dosed per pharmacy MRSA swab ordered Continue BiPAP and wean as appropriate While on BiPAP will remain n.p.o. Furosemide IV 20mg ordered in ED due to volume overload appearance - monitor response strict I and O with daily weights Kuhn ordered obtain echo (6) Heart failure, diastolic, with acute decompensation: Recent echo 07/2018 revealed EF 50-54% pt with appearance of volume overload on exam, follows closely with [facility] cardiology, last seen 10/24 per [facility] weights fluctuating 127kg-134kg, pt 127.6kg today IV lasix 20mg ordered in ED due to appearance of volume overload, pulm vasc congestion Strict I and O Daily Weight Cardiology consulted - appreciate their recommendations repeat echo ordered secondary to recent history of endocarditis holding oral lasix, aldactone, imdur, BB, JOAQUIM for now (7) Acute renal failure superimposed on stage 3 chronic kidney disease: baseline Cr 1.9 bun/cr today 32 and 2.44 monitor bmp (8) Chronic atrial fibrillation: Pt rate controlled in outpt setting with metoprolol On Coumadin for anticoagulation, INR subtherapeutic today therefore we will supplement with IV heparin Will resume Coumadin once able to tolerate p.o. intake INR in a.m. (9) Coronary artery disease: Nonobstructive CAD On ASA, statin, metoprolol, imdur, lisinopril as outpatient (10) T2DM (type 2 diabetes mellitus): Uncontrolled Last A1C 8.6 05/2018 repeat A1C in a.m. due to sepsis will place consult for glycemic pharmacist, appreciate their assistance (11) HTN (hypertension): bp now on low side hold antihypertensives metoprolol, lasix, lisinopril, imdur and terazosin (12) S/P aortic valve replacement: continue warfarin, goal IN R 2-3 IV heparin started due to subtherapeutic INR repeat INR in am resume coumadin when off bipap (13) Hypothyroidism: convert to IV synthyroid until able to tolerate PO (14) History of CVA (cerebrovascular accident): mild residual R weakness continue ASA, Statin, warfarin (15) History of endocarditis: Hx of endocarditis 05/2018, tx with IV rocephin x 6 weeks group B strep (16) DVT prophylaxis: IV heparin until INR > 2 Warfarin (home dose 2.5mg daily) Disposition: to be determined, case management consulted Follow up: PCP Dr. Buck upon discharge Patient was seen and examined in collaboration with Dr. Casas, please see addendum >120 minutes was spent obtaining history, review of past medical records, coordinating with specialist and forumlating assessment and treatment plan History of Present Illness Chief Complaint: ill feeling x 1 day. Primary Care Provider: Alise Buck MD This is a 78-year-old male who has significant past medical history of CAD, history of prosthetic AVR, paroxysmal atrial fibrillation, long-term anticoagulation on warfarin, T2DM, HTN, HLD, hypothyroidism, PVD, anemia of chronic disease, morbid obesity, history of prosthetic valve endocarditis, ascending aortic aneurysm who presents to [facility] ED due to feeling x1 day. Family is at bedside and provides most of history. Unable to obtain accurate history from patient due to BiPAP and somnolence. According to family patient was seen by cardiology CHEN Olivares on 10/24 and was felt to have increased swelling therefore his Lasix was going to be increased to 80 mg twice daily or switched to torsemide pending a BMP today. He had been doing well up until today when he woke up this morning not feeling well, increased confusion and noticeable shortness of breath. Also complaints of sinus congestion and rhinorrhea past few days requiring him to take OTC cold and sinus medications. EMS was summoned. Of significance patient was hospitalized at [facility] ED on 05/2018 secondary to fever and volume overload. Blood cultures were positive for group B strep. TENNILLE revealed prosthetic valve endocarditis. Patient required 6- week course of IV Rocephin which finished at the end of June. He did have a repeat TTE on 08/15 which revealed LV wall thickness moderately concentric, septal motion consistent with LBBB EF 50-54%. Allergies Allergy/AdvReac Type Severity Reaction Status Date / Time No Known Allergies Allergy Unverified 10/25/18 14:08 Home Medications Home Medications Medication Instructions Recorded Confirmed Type atorvastatin 40 mg PO QAM 02/23/18 10/25/18 History docusate sodium 100 mg PO AMHS 02/23/18 10/25/18 History folic acid 1 mg PO QAM 02/23/18 10/25/18 History isosorbide mononitrate 90 mg PO QAM 02/23/18 10/25/18 History lisinopril 40 mg PO QAM 02/23/18 10/25/18 History nitroglycerin 0.4 mg SUBLINGUAL DIRECTED PRN 02/23/18 10/25/18 History terazosin 2 mg PO HS 02/24/18 10/25/18 History aspirin [Aspirin Childrens] 0.5 tab PO AMHS 07/10/18 10/25/18 History insulin glargine [Lantus Solostar 20 units SQ AMHS 07/10/18 10/25/18 History U-100 Insulin] ferrous sulfate 325 mg PO QAM 10/25/18 10/25/18 History furosemide 80 mg PO BID 10/25/18 10/25/18 History insulin lispro [Humalog KwikPen 4 unit SUBCUT TID 10/25/18 10/25/18 History Insulin] levothyroxine [Synthroid] 75 mcg PO QAM 10/25/18 10/25/18 History metoprolol tartrate 37.5 mg PO AMHS 10/25/18 10/25/18 History spironolactone 12.5 mg PO QAM 10/25/18 10/25/18 History warfarin 2.5 mg PO DAILY 10/25/18 10/25/18 History Past Med/Surg History Medical History Coronary artery disease (Chronic) T2DM (type 2 diabetes mellitus) (Chronic) HTN (hypertension) (Chronic) History of endocarditis (Chronic) 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 weeks 05/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 LBBB (left bundle branch block) (Chronic) PVD (peripheral vascular disease) (Chronic) 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 (Chronic) 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) INR goal 2-3 Chronic atrial fibrillation (Chronic) Cerebrovascular disease (Chronic) Chronic diastolic heart failure (Chronic) ASCVD (arteriosclerotic cardiovascular disease) (Chronic) Septicemia due to group B Streptococcus (Resolved) Hypothyroidism (Chronic) Hyperlipidemia (Chronic) PAF (paroxysmal atrial fibrillation) (Chronic) Diabetes type 2, uncontrolled (Chronic) Surgical History History of cardiac catheterization (Chronic) Nonobstructive CAD S/P aortic valve replacement (Chronic) Family History Other Unknown family medical history Social History Preferred Language: Fijian Communication Ability: Effective Beliefs That Will Affect Care: None marital status: Current Living Situation: Spouse Current Living Situation Comment: Lives with and aunt Other Information That Helps Us Care for You: Yes Feels Safe at Home: Yes Safety Concerns: Feels Safe At This Time Smoking Status: Never smoker Tobacco Type: cigars Cigarettes Per Day: 1 cigar per day Second Hand Exposure: No Hx Alcohol Use: No Hx Substance Use: No Review of Systems Review of Systems: As noted per HPI, 10 systems reviewed and negative unless noted above. Physical Exam Physical Exam: Gen: Elderly, obese male, lying in bed, +bipap, alert and arousable to verbal stimuli but confused, follows commands Head: Normocephalic, Atraumatic Eyes: Sclera normal, no conjunctival injection, PERRLA, EOMI ENT: Gross hearing diminished, pt hard of hearing, normal pharynx, mucous membrane dry from bipap Neck: supple, no adenopathy, No JVD, no bruit, Resp: Clear to auscultation b/ with crackles bibasilar, no wheeze, or rhonchi. 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 RLE warm, erythematous with streaking extending to proximal medial thigh. +++edema b/l. B/L pedal pulse +1 and equal. Skin: warm, moist, negative turgor, cap refill < 2sec Neuro: Alert and oriented to self only, speech slowed, flat mood/affect, cran nerve 2-12 intact grossly : deferred Results & Data Vital Signs (Past 12 Hours) Vital Signs Temp Pulse Resp BP Pulse Ox 10/25/18 14:01 104 H 35 H 109/59 L 97 10/25/18 14:00 100 H 38 H 98 10/25/18 13:45 124 H 38 H 153/97 H 100 10/25/18 13:30 131 H 34 H 152/91 H 100 10/25/18 13:22 38.5 C H 10/25/18 13:15 132 H 40 H 156/88 H 100 10/25/18 13:00 104 H 36 H 144/94 H 100 10/25/18 12:45 101 H 41 H 143/81 H 100 10/25/18 12:31 40 H 165/95 H 100 10/25/18 12:30 32 H 100 10/25/18 12:21 119 H 34 H 168/103 H 97 10/25/18 12:16 109 H 40 H 168/121 H 100 10/25/18 12:15 107 H 36 H 97 10/25/18 12:07 108 H 45 H 172/91 H 100 10/25/18 12:05 40 H 100 10/25/18 12:00 155 H 48 H 192/151 H 96 10/25/18 11:53 139 H 37 H 94 10/25/18 11:50 38 C H 48 H 177/113 H 100 Laboratory Results Short CBC 10/25/18 Range/Units 12:13 WBC 17.57 H (4.8-10.8) K/uL Hgb 12.6 L (14.0-18.0) g/dL Hct 38.8 L (42-52) % Plt Count 135 (130-400) K/uL BMP 10/25/18 12:13 Sodium 140 Potassium 3.9 Chloride 105 Carbon Dioxide 27 BUN 32 H Creatinine 2.44 H Glucose 300 H Calcium 8.7 Liver Function 10/25/18 Range/Units 12:13 Total Bilirubin 0.9 (0.2-1) mg/dl Direct Bilirubin 0.3 H (0-0.2) mg/dl AST 24 (15-37) U/L ALT 25 (12-78) U/L Alkaline Phosphatase 114 (45-117) U/L Albumin 3.2 L (3.4-5.0) gm/dl Urine 10/25/18 Range/Units 12:30 Urine Color Yellow Urine Appearance Clear (Clear) Urine pH 5.0 (4.5-7.5) Ur Specific [place] 1.019 (1.000-1.030) Urine Protein Negative (Negative) Urine Glucose (UA) 2+ H (Negative) Diagnostic Findings CXR: IMPRESSION: Continued radiographic evidence of mild congestive failure/fluid overload. No evidence of lobar consolidation Medications Administered Heparin Sodium/Dextrose (Heparin Sodium/Dextrose) 25,000 units in 500 mls @ 0.02 mls/hr IV .Q24H [facility]; Protocol Stop: 11/24/18 13:44 Last Admin: 10/25/18 13:55 Dose: 1,000 units/hr, 20 mls/hr Documented by: [id number] Cosigned by: [id number] Discontinued Medications Diltiazem HCl (Cardizem) 15 mg IV NOW STA Stop: 10/25/18 11:56 Last Admin: 10/25/18 12:01 Dose: 15 mg Documented by: [id number] Cosigned by: [id number] Diltiazem HCl (Cardizem) Confirm Administered Dose 25 mg IV .STK-MED ONE Stop: 10/25/18 12:00 Last Admin: 10/25/18 12:01 Dose: Not Given Documented by: [id number] Furosemide (Lasix) 40 mg IV NOW STA Stop: 10/25/18 14:22 Last Admin: 10/25/18 15:15 Dose: Not Given Documented by: [id number] Furosemide (Lasix) Confirm Administered Dose 40 mg IV .STK-MED ONE Stop: 10/25/18 15:09 Last Admin: 10/25/18 15:10 Dose: 20 mg Documented by: [id number] Heparin Sodium (Porcine) (Heparin Iv Bolus) Confirm Administered Dose 10,000 units .ROUTE .STK-MED ONE Stop: 10/25/18 13:39 Last Admin: 10/25/18 13:54 Dose: 4,000 units Documented by: [id number] Cosigned by: [id number] Heparin Sodium/Dextrose () 1 ea IV NOW STA; Protocol Stop: 10/25/18 13:33 Last Admin: 10/25/18 13:57 Dose: Not Given Documented by: [id number] Piperacillin Sod/Tazobactam Sod (Zosyn) 4.5 gm in 120 mls @ 240 mls/hr IV NOW Stop: 10/25/18 12:43 Last Infusion: 10/25/18 13:08 Dose: 0 mls/hr Documented by: [id number] Admin: 10/25/18 12:38 Dose: 240 mls/hr Documented by: [id number] Vancomycin HCl 2,500 mg/ (Sodium Chloride) 550 mls @ 200 mls/hr IV NOW ; Protocol Stop: 10/25/18 14:58 Last Admin: 10/25/18 12:49 Dose: 200 mls/hr Documented by: [id number] Sodium Chloride (Nss) 500 mls @ 999 mls/hr IV .Q31M ONE Stop: 10/25/18 12:50 Last Infusion: 10/25/18 12:55 Dose: 0 mls/hr Documented by: [id number] Admin: 10/25/18 12:24 Dose: 999 mls/hr Documented by: [id number] Acetaminophen (Ofirmev) 1,000 mg in 100 mls @ 400 mls/hr IV NOW STA Stop: 10/25/18 13:53 Last Infusion: 10/25/18 13:59 Dose: 0 mls/hr Documented by: [id number] Admin: 10/25/18 13:44 Dose: 400 mls/hr Documented by: [id number] Ondansetron HCl (Zofran) 4 mg IV NOW STA Stop: 10/25/18 12:21 Last Admin: 10/25/18 12:24 Dose: 4 mg Documented by: [id number] Ondansetron HCl (Zofran) Confirm Administered Dose 4 mg .ROUTE .STK-MED ONE Stop: 10/25/18 12:22 Last Admin: 10/25/18 12:45 Dose: Not Given Documented by: [id number] ECG Rate (beats per minute): 141 Rhythm: atrial fibrillation Findings: + LBBB Code Status & VTE Plan Code Status DNR/DNI VTE Prophylaxis Plan VTE Prophylaxis will be ordered: Yes Supervising Physician Co-Signing Physician Notes I have seen and examined the patient and have discussed the case with the provider above. I agree with the assessment and plan as stated with the following exceptions. Mr. Bartlett is a 78-year-old man with a recent up titration of his diuretic yesterday out of concern for volume overload who pres ents today with a sepsis picture in addition to heart failure exacerbation. He is altered consistent with metabolic encephalopathy but is following instructions and speaking normally. Family reports some recent upper respiratory tract infection symptoms including runny nose and some nonspecific coughing. He also has some open wounds on his legs worse on the RLE that is consistent with cellulitis. The patient is unable to give a history secondary to encephalopathy. Source of infection is unclear but may be related to upper respiratory tract infection versus leg wounds. He has a recent h/o treatment for infective endocarditis, so this is also in the differential. An echo has been ordered to further evaluate his valves. He is s/p mechanical aortic valve replacement and is on coumadin for this. Cardiology was consulted for assistance with volume status determination and hemodynamic management, and are in agreement with initial Lasix IV. On exam he is tachycardic with an irregular rhythm consistent with atrial fibrillation. He has no murmur, and lungs reveal coarse rhonchi throughout all lung [place]berry. He is on BIPAP and is not working to breathe. He appears comfortable and is denying SOB or pain. Swelling of abdomen and lower extremities is present without melinda edema. Initial response to Lasix 20mg IV was approx 200cc of concentrated appearing urine into the Kuhn. An additiona 40mg IV Lasix was given around 8pm. Lactate returned to normal, however, his respiratory acidosis was seen to be worsening on ABG drawn around 8pm. Signed out to Sports Statistician to aid with adjustment of settings on BIPAP and assist with treatment overnight. Hyperglycemia noted, and glycemic pharmacist was consulted. Repeat ABG and lactate pending around 0200 to monitor progress. He is a DNR confirmed on admission. Cont broad spectrum abx including Dapto and Zosyn. Hold oral medications at this time. NPO while respiratory status is tenuous. Augusto,
--- NOTE | 2018-10-25 14:55 | Emergency Department Note ---
Entered by Raquel Harris acting as a scribe for History of Present Illness General Chief complaint: Shortness of Breath/Dyspnea Time Seen by Provider: 10/25/18 11:48 Source: patient, family and EMS History of Present Illness Location: chest Severity: severe Pain Consistency: + other (episode) Quality: + other (shortness of breath) Associated symptoms: + other (fever, drainage from leg wounds) The patient is a 78 year old male with a history of a mechanical aortic valve replacement, CVA, diabetes, and thyroid disease that is presenting to the Emergency Room with complaints of an episode of shortness of breath that started this morning while the patient was in the shower. The patient is unable to provide a full history secondary to his shortness of breath and mental status. The patient arrived at the ED via EMS. EMS states that the patient was generally well earlier this morning and was complaining only of a scratchy throat. EMS reports that the patient was in the shower when he was suddenly unable to breath. EMS states that the patient had a fever of 102F and that the wounds on his legs started to leak fluid. EMS notes that the patient has a history of CHF and had his diuretic dosage changes yesterday. EMS states that patient does not walk on his own and uses an electric wheelchair for movement. EMS reports that the patient was last seen in the hospital for hypoglycemia and for sepsis in his legs on his prior visit. EMS notes that the patient has some right sided weakness at baseline secondary to a past stroke. EMS states that the patient is DNR and DNI. EMS reports that the patient lives at home with his and has a home health aide. EMS notes that the patients blood pressure was 190/120 upon arrival to the ED. The patients nephew states that the patient was generally well last night when he last saw him at 2200. He reports they were discussing changing his medications yesterday. He states that the patient is normally able to communicate well at his baseline. His son reports that the patient is not able to use his right arm or leg at baseline secondary to his CVA. He notes that the patient does walk around using a walk and rails on the wall. He reports that the patient is usually able to go to the bathroom on his own. He acknowledges patient's right leg is slightly more swollen than usual. Denies that the patient has fallen recently. The patient's daughter reports that the patient has been having body aches all day and worsend throughout the morning. His daugther states that the patient did not change Lasix dose yet. She notes that the patient's doctor wanted blood work completed before changing the dosage, and she states that the patient had blood drawn at home this morning. His daughter reports that the patient took his Lasix as prescribed this morning at his previous dosage. 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 Home Medications Home Medications Medication Instructions Recorded Confirmed Type atorvastatin 40 mg PO QAM 02/23/18 10/25/18 History docusate sodium 100 mg PO AMHS 02/23/18 10/25/18 History folic acid 1 mg PO QAM 02/23/18 10/25/18 History isosorbide mononitrate 90 mg PO QAM 02/23/18 10/25/18 History lisinopril 40 mg PO QAM 02/23/18 10/25/18 History nitroglycerin 0.4 mg SUBLINGUAL DIRECTED PRN 02/23/18 10/25/18 History terazosin 2 mg PO HS 02/24/18 10/25/18 History aspirin [Aspirin Childrens] 0.5 tab PO AMHS 07/10/18 10/25/18 History insulin glargine [Lantus Solostar 20 units SQ AMHS 07/10/18 10/25/18 History U-100 Insulin] ferrous sulfate 325 mg PO QAM 10/25/18 10/25/18 History furosemide 80 mg PO BID 10/25/18 10/25/18 History insulin lispro [Humalog KwikPen 4 unit SUBCUT TID 10/25/18 10/25/18 History Insulin] levothyroxine [Synthroid] 75 mcg PO QAM 10/25/18 10/25/18 History metoprolol tartrate 37.5 mg PO AMHS 10/25/18 10/25/18 History spironolactone 12.5 mg PO QAM 10/25/18 10/25/18 History warfarin 2.5 mg PO DAILY 10/25/18 10/25/18 History Allergies Allergy/AdvReac Type Severity Reaction Status Date / Time No Known Allergies Allergy Unverified 10/25/18 14:08 Past Med/Surg History Medical History Coronary artery disease (Chronic) T2DM (type 2 diabetes mellitus) (Chronic) HTN (hypertension) (Chronic) History of endocarditis (Chronic) History of prosthetic valve endocarditis group B strep treated with IV Flynn ephin x6 weeks 05/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 LBBB (left bundle branch block) (Chronic) PVD (peripheral vascular disease) (Chronic) 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 (Chronic) 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) INR goal 2-3 Chronic atrial fibrillation (Chronic) Cerebrovascular disease (Chronic) Chronic diastolic heart failure (Chronic) ASCVD (arteriosclerotic cardiovascular disease) (Chronic) Septicemia due to group B Streptococcus (Resolved) Hypothyroidism (Chronic) Hyperlipidemia (Chronic) PAF (paroxysmal atrial fibrillation) (Chronic) Diabetes type 2, uncontrolled (Chronic) Surgical History History of cardiac catheterization (Chronic) Nonobstructive CAD S/P aortic valve replacement (Chronic) Family History Other Unknown family medical history Social History Preferred Language: [place] Communication Ability: Effective Beliefs That Will Affect Care: None marital status: Current Living Situation: Spouse Current Living Situation Comment: Lives with and aunt Other Information That Helps Us Care for You: Yes Feels Safe at Home: Yes Safety Concerns: Feels Safe At This Time Smoking Status: Never smoker Tobacco Type: cigars Cigarettes Per Day: 1 cigar per day Second Hand Exposure: No Hx Alcohol Use: No Hx Substance Use: No Review of Systems The HPI and ROS are limited secondary to the patient's severe shortness of breath. Physical Exam Vital Signs Vital Signs - 24 hr 10/25/18 11:50 10/25/18 11:53 10/25/18 12:00 Temperature 38 C H Temperature Source Oral Sepsis Recent Fever Within 48 Hours Yes Sepsis New/Unexplained Change in Mental Status No Sepsis Action Taken by Nursing No Action Required Pulse Rate 139 H 155 H Pulse Rate from SpO2 Sensor 150 H 164 H Respiratory Rate 48 H 37 H 48 H Respiratory Effort / Characteristics Labored Spontaneous Labored Short of Breath Respiratory Depth Shallow Shallow Respiratory Pattern Tachypnea Tachypnea Blood Pressure 177/113 H 192/151 H Blood Pressure Mean 134 164 Pulse Oximetry 100 94 96 Oxygen Delivery Method Non-rebreather BiPAP Oxygen Flow Rate 15 Fraction of Inspired Oxygen 80 10/25/18 12:05 10/25/18 12:07 10/25/18 12:15 Temperature Temperature Source Sepsis Recent Fever Within 48 Hours Sepsis New/Unexplained Change in Mental Status Sepsis Action Taken by Nursing Pulse Rate 108 H 107 H Pulse Rate from SpO2 Sensor 95 H 104 H Respiratory Rate 40 H 45 H 36 H Respiratory Effort / Characteristics Respiratory Depth Respiratory Pattern Blood Pressure 172/91 H Blood Pressure Mean 118 Pulse Oximetry 100 100 97 Oxygen Delivery Method BiPAP BiPAP BiPAP Oxygen Flow Rate Fraction of Inspired Oxygen 10/25/18 12:16 10/25/18 12:21 10/25/18 12:30 Temperature Temperature Source Sepsis Recent Fever Within 48 Hours Sepsis New/Unexplained Change in Mental Status Sepsis Action Taken by Nursing Pulse Rate 109 H 119 H Pulse Rate from SpO2 Sensor 107 H 115 H 105 H Respiratory Rate 40 H 34 H 32 H Respiratory Effort / Characteristics Respiratory Depth Respiratory Pattern Blood Pressure 168/121 H 168/103 H Blood Pressure Mean 136 124 Pulse Oximetry 100 97 100 Oxygen Delivery Method BiPAP BiPAP BiPAP Oxygen Flow Rate Fraction of Inspired Oxygen 10/25/18 12:31 10/25/18 12:45 10/25/18 13:00 Temperature Temperature Source Sepsis Recent Fever Within 48 Hours Sepsis New/Unexplained Change in Mental Status Sepsis Action Taken by Nursing Pulse Rate 101 H 104 H Pulse Rate from SpO2 Sensor 119 H 98 H 103 H Respiratory Rate 40 H 41 H 36 H Respiratory Effort / Characteristics Respiratory Depth Respiratory Pattern Blood Pressure 165/95 H 143/81 H 144/94 H Blood Pressure Mean 118 101 110 Pulse Oximetry 100 100 100 Oxygen Delivery Method BiPAP BiPAP BiPAP Oxygen Flow Rate Fraction of Inspired Oxygen 10/25/18 13:15 10/25/18 13:22 10/25/18 13:30 Temperature 38.5 C H Temperature Source Oral Sepsis Recent Fever Within 48 Hours Sepsis New/Unexplained Change in Mental Status Sepsis Action Taken by Nursing Pulse Rate 132 H 131 H Pulse Rate from SpO2 Sensor 126 H 116 H Respiratory Rate 40 H 34 H Respiratory Effort / Characteristics Respiratory Depth Respiratory Pattern Blood Pressure 156/88 H 152/91 H Blood Pressure Mean 110 111 Pulse Oximetry 100 100 Oxygen Delivery Method BiPAP BiPAP Oxygen Flow Rate Fraction of Inspired Oxygen 10/25/18 13:45 10/25/18 14:00 10/25/18 14:01 Temperature Temperature Source Sepsis Recent Fever Within 48 Hours Sepsis New/Unexplained Change in Mental Status Sepsis Action Taken by Nursing Pulse Rate 124 H 100 H 104 H Pulse Rate from SpO2 Sensor 124 H 101 H 106 H Respiratory Rate 38 H 38 H 35 H Respiratory Effort / Characteristics Respiratory Depth Respiratory Pattern Blood Pressure 153/97 H 109/59 L Blood Pressure Mean 115 75 Pulse Oximetry 100 98 97 Oxygen Delivery Method BiPAP BiPAP BiPAP Oxygen Flow Rate Fraction of Inspired Oxygen GENERAL: Awake, alert, ill-appearing, in severe respiratory distress. HENT: Normocephalic, atraumatic. Oropharynx with dry mucous membranes and otherwise unremarkable. EYES: Normal conjunctiva. Sclera non-icteric. EOMI. No nystamgus. PEARRL. NECK: Supple. No nuchal rigidity. FROM. No JVD. RESPIRATORY: Scattered rhonchi and rales. CARDIAC: Tachycardic rate, irregular rhythm. Extremities warm and well perfused. Pulses equal. ABDOMEN: Distended but soft. No tenderness to palpation. No rebound or guarding. No masses. RECTAL: Deferred. MUSCULOSKELETAL: Chest examination reveals no tenderness. The back is symmetrical on inspection without obvious abnormality. There is no CVA tenderness to palpation. No joint edema. LOWER EXTREMITIES: Calves are non-tender. 3+ edema to the right lower extremity and 2+ edema to the left lower extremity with erythema warmth and serous oozing. NEURO: Normal sensorium. Baseline RUE and RLE paresis with 2/5 strength. SKIN: No jaundice noted. Warm and diaphoretic. Course 1147:The patient was evaluated in room A01. A complete history and physical examination was performed. A bedside echo test was completed at this time. The Respiratory Care Team was present upon exam. I discussed the patient's case with the patient's son upon his arrival. 1220: I reevaluated the patient at this time. The patient's daughter provided more history. 1325: The patients temperature has risen from 38C to 38.5C. 1334: I discussed the patients case with DIVINE Owen, who will evaluate the patient for further management and care with Dr. Casas as the attending physician. Consultations Consultation #1: I discussed the patients case with DIVINE Owen, who will evaluate the patient for further management and care with Dr. Casas as the attending physician. Time: 13:34 Administered Medications Heparin Sodium/Dextrose (Heparin Sodium/Dextrose) 25,000 units in 500 mls @ 0.02 mls/hr IV .Q24H JOYCE; Protocol Stop: 11/24/18 13:44 Last Admin: 10/25/18 13:55 Dose: 1,000 units/hr, 20 mls/hr Documented by: [id number] Cosigned by: [id number] Heparin Sodium/Dextrose (Heparin Sodium/Dextrose) 25,000 units in 500 mls @ 16 mls/hr IV .Q24H JOYCE; Protocol Stop: 11/24/18 16:14 Last Titration: 10/25/18 19:01 Dose: 800 units/hr, 16 mls/hr Documented by: [id number] Cosigned by: [id number] Admin: 10/25/18 17:12 Dose: 1,000 units/hr, 20 mls/hr Documented by: [id number] Cosigned by: [id number] Piperacillin Sod/Tazobactam (Sod 4.5 gm/ Dextrose) 120 mls @ 200 mls/hr IV Q8H JOYCE; Protocol Stop: 11/04/18 17:59 Last Infusion: 10/25/18 18:03 Dose: 0 mls/hr Documented by: [id number] Admin: 10/25/18 17:13 Dose: 200 mls/hr Documented by: [id number] Daptomycin 300 mg/ Syringe 6 mls @ 0 mls/min IV Q24H JOYCE; Protocol Stop: 11/04/18 17:59 Last Admin: 10/25/18 18:00 Dose: 50 mls/min Documented by: [id number] Insulin Aspart (Novolog Flexpen) 0 units SC Q6 JOYCE Stop: 11/24/18 17:59 Last Admin: 10/25/18 18:06 Dose: 6 units Documented by: [id number] Cosigned by: [id number] Metoprolol Succinate (Toprol Xl) 12.5 mg PO BID JOYCE Stop: 11/24/18 20:59 Last Admin: 10/25/18 20:55 Dose: Not Given Documented by: [id number] Discontinued Medications Diltiazem HCl (Cardizem) 15 mg IV NOW STA Stop: 10/25/18 11:56 Last Admin: 10/25/18 12:01 Dose: 15 mg Documented by: [id number] Cosigned by: [id number] Diltiazem HCl (Cardizem) Confirm Administered Dose 25 mg IV .STK-MED ONE Stop: 10/25/18 12:00 Last Admin: 10/25/18 12:01 Dose: Not Given Documented by: [id number] Furosemide (Lasix) 40 mg IV NOW STA Stop: 10/25/18 14:22 Last Admin: 10/25/18 15:15 Dose: Not Given Documented by: [id number] Furosemide (Lasix) Confirm Administered Dose 40 mg IV .[employer]-MED ONE Stop: 10/25/18 15:09 Last Admin: 10/25/18 15:10 Dose: 20 mg Documented by: [id number] Furosemide (Lasix) 40 mg IV NOW STA Stop: 10/25/18 18:54 Last Admin: 10/25/18 19:58 Dose: 40 mg Documented by: [id number] Heparin Sodium (Porcine) (Heparin Iv Bolus) Confirm Administered Dose 10,000 units .ROUTE .[employer]-MED ONE Stop: 10/25/18 13:39 Last Admin: 10/25/18 13:54 Dose: 4,000 units Documented by: [id number] Cosigned by: [id number] Heparin Sodium/Dextrose () 1 ea IV NOW STA; Protocol Stop: 10/25/18 13:33 Last Admin: 10/25/18 13:57 Dose: Not Given Documented by: [id number] Heparin Sodium/Dextrose () 1 ea IV ONE ONE; Protocol Stop: 10/25/18 16:07 Last Admin: 10/25/18 17:11 Dose: 1 ea Documented by: [id number] Piperacillin Sod/Tazobactam Sod (Zosyn) 4.5 gm in 120 mls @ 240 mls/hr IV NOW ONE Stop: 10/25/18 12:43 Last Infusion: 10/25/18 13:08 Dose: 0 mls/hr Documented by: [id number] Admin: 10/25/18 12:38 Dose: 240 mls/hr Documented by: [id number] Vancomycin HCl 2,500 mg/ (Sodium Chloride) 550 mls @ 200 mls/hr IV NOW ONE; Protocol Stop: 10/25/18 14:58 Last Infusion: 10/25/18 15:34 Dose: 0 mls/hr Documented by: [id number] Admin: 10/25/18 12:49 Dose: 200 mls/hr Documented by: [id number] Sodium Chloride (Nss) 500 mls @ 999 mls/hr IV .Q31M ONE Stop: 10/25/18 12:50 Last Infusion: 10/25/18 12:55 Dose: 0 mls/hr Documented by: [id number] Admin: 10/25/18 12:24 Dose: 999 mls/hr Documented by: [id number] Acetaminophen (Ofirmev) 1,000 mg in 100 mls @ 400 mls/hr IV NOW STA Stop: 10/25/18 13:53 Last Infusion: 10/25/18 13:59 Dose: 0 mls/hr Documented by: [id number] Admin: 10/25/18 13:44 Dose: 400 mls/hr Documented by: [id number] Insulin Glargine (Lantus Solostar Pen) 15 units SC BID JOYCE Stop: 11/24/18 20:59 Last Admin: 10/25/18 20:56 Dose: 15 units Documented by: [id number] Cosigned by: [id number] Miscellaneous Information (Consult Glycemic Management Pharmacy) 1 ea N/A NOW STA Stop: 10/25/18 21:22 Last Admin: 10/25/18 21:35 Dose: 1 ea Documented by: [id number] Ondansetron HCl (Zofran) 4 mg IV NOW STA Stop: 10/25/18 12:21 Last Admin: 10/25/18 12:24 Dose: 4 mg Documented by: [id number] Ondansetron HCl (Zofran) Confirm Administered Dose 4 mg .ROUTE .STK-MED ONE Stop: 10/25/18 12:22 Last Admin: 10/25/18 12:45 Dose: Not Given Documented by: [id number] Medical Decision Making Differential Diagnosis Differential diagnosis: Etiologies such as sepsis, UTI, pneumonia, metabolic, electrolyte abnormalities, cardiac sources, intracerebral event, toxicologic, neurologic, as well as others were entertained. Medical Records Attestation: I reviewed the patient's medical records. Home Medications Current Medication List: was personally reviewed by me Laboratory Data Attestation: I reviewed the patient's lab results. Result diagrams: 10/25/18 12:13 10/25/18 12:13 Lab Results 10/25/18 10/25/18 10/25/18 Range/Units 11:59 12:13 12:13 WBC 17.57 H (4.8-10.8) K/uL RBC 4.64 L (4.7-6.1) M/uL Hgb 12.6 L (14.0-18.0) g/dL POC Hgb 13.9 L (14.0-18.0) g/dl Hct 38.8 L (42-52) % POC Hct 41 L (42-52) % MCV 83.6 (80-100) fL MCH 27.2 (25-34) pg MCHC 32.5 (32-36) g/dL RDW Std Deviation 52.5 H (36.4-46.3) fL RDW Coeff of Elizabeth 17.2 H (11.5-14.5) % Plt Count 135 (130-400) K/uL MPV 11.0 H (7.4-10.4) fL Immature Gran % (Auto) 0.3 % Neut % (Auto) 90.2 % Lymph % (Auto) 6.0 % [place] % (Auto) 3.2 % Eos % (Auto) 0.1 % Baso % (Auto) 0.2 % Immature Gran # (Auto) 0.05 H (0.00-0.02) K/uL Neut # (Auto) 15.86 H (1.4-6.5) K/uL Lymph # (Auto) 1.06 L (1.2-3.4) K/uL [place] # (Auto) 0.56 (0.11-0.59) K/uL Eos # (Auto) 0.01 (0-0.5) K/uL Baso # (Auto) 0.03 (0-0.2) K/uL PT 16.5 H (9.0-12.0) Seconds INR 1.7 H (0.9-1.1) APTT 31.3 H (21.0-31.0) Seconds PTT Ratio 1.2 VBG pH (7.36-7.41) VBG pCO2 (38-50) mmHg VBG pO2 mmHg VBG HCO3 mmol/L VBG O2 Saturation % VBG Base Excess mEq/L Barometric Pressure mm/Hg POC Sodium 140 (135-144) mEq/L Sodium (136-145) mmol/L POC Potassium 3.9 (3.3-5.0) mEq/L Potassium (3.5-5.1) mmol/L POC Chloride 100 L (101-112) mEq/L Chloride (98-107) mmol/L Carbon Dioxide (21-32) mmol/L POC Total CO2 26 (24-31) mEq/l Anion Gap (3-11) POC Anion Gap 19.0 (16-25) mmol/L POC BUN 32 H (7-18) mg/dl BUN (7-18) mg/dl Creatinine (0.6-1.4) mg/dl POC Creatinine 2.2 H (0.6-1.3) mg/dl Est Cr Clr Drug Dosing ml/min Est GFR ( Amer) Est GFR (Non-Af Amer) BUN/Creatinine Ratio (10-20) Glucose (70-99) mg/dl POC Glucose (other) 303 H (70-99) mg/dl Lactate (0.4-2.0) mmol/L Calcium (8.5-10.1) mg/dl POC Ioniz Calcium Rose 1.04 L (1.12-1.32) mmol/l Phosphorus (2.5-4.9) mg/dl Magnesium (1.8-2.4) mg/dl Total Bilirubin (0.2-1) mg/dl Direct Bilirubin (0-0.2) mg/dl AST (15-37) U/L ALT (12-78) U/L Alkaline Phosphatase (45-117) U/L NT-Pro-B Natriuret Pep (0-1800) pg/ml Total Protein (6.4-8.2) gm/dl Albumin (3.4-5.0) gm/dl Globulin (2.5-4.0) gm/dl Albumin/Globulin Ratio (0.9-2) Urine Color Urine Appearance (Clear) Urine pH (4.5-7.5) Ur Specific [place] (1.000-1.030) Urine Protein (Negative) Urine Glucose (UA) (Negative) Urine Ketones (Negative) Urine Blood (Negative) Urine Nitrite (Negative) Urine Bilirubin (Negative) Urine Urobilinogen (Negative) Ur Leukocyte Esterase (Negative) Urine WBC (Auto) (0-5) /hpf Urine RBC (Auto) (0-4) /hpf U Hyaline Cast (Auto) (0-5) /lpf U Epithel Cells (Auto) (0-5) /lpf Urine Bacteria (Auto) (Negative) 10/25/18 10/25/18 10/25/18 Range/Units 12:13 12:13 12:13 WBC (4.8-10.8) K/uL RBC (4.7-6.1) M/uL Hgb (14.0-18.0) g/dL POC Hgb (14.0-18.0) g/dl Hct (42-52) % POC Hct (42-52) % MCV (80-100) fL MCH (25-34) pg MCHC (32-36) g/dL RDW Std Deviation (36.4-46.3) fL RDW Coeff of Elizabeth (11.5-14.5) % Plt Count (130-400) K/uL MPV (7.4-10.4) fL Immature Gran % (Auto) % Neut % (Auto) % Lymph % (Auto) % [place] % (Auto) % Eos % (Auto) % Baso % (Auto) % Immature Gran # (Auto) (0.00-0.02) K/uL Neut # (Auto) (1.4-6.5) K/uL Lymph # (Auto) (1.2-3.4) K/uL [place] # (Auto) (0.11-0.59) K/uL Eos # (Auto) (0-0.5) K/uL Baso # (Auto) (0-0.2) K/uL PT (9.0-12.0) Seconds INR (0.9-1.1) APTT (21.0-31.0) Seconds PTT Ratio VBG pH 7.41 (7.36-7.41) VBG pCO2 41 (38-50) mmHg VBG pO2 39 mmHg VBG HCO3 26 mmol/L VBG O2 Saturation 72.1 % VBG Base Excess 1.0 mEq/L Barometric Pressure 734.3 mm/Hg POC Sodium (135-144) mEq/L Sodium 140 (136-145) mmol/L POC Potassium (3.3-5.0) mEq/L Potassium 3.9 (3.5-5.1) mmol/L POC Chloride (101-112) mEq/L Chloride 105 (98-107) mmol/L Carbon Dioxide 27 (21-32) mmol/L POC Total CO2 (24-31) mEq/l Anion Gap 8.0 (3-11) POC Anion Gap (16-25) mmol/L POC BUN (7-18) mg/dl BUN 32 H (7-18) mg/dl Creatinine 2.44 H (0.6-1.4) mg/dl POC Creatinine (0.6-1.3) mg/dl Est Cr Clr Drug Dosing 34.0 ml/min Est GFR ( Amer) 28.3 Est GFR (Non-Af Amer) 24.4 BUN/Creatinine Ratio 13.0 (10-20) Glucose 300 H (70-99) mg/dl POC Glucose (other) (70-99) mg/dl Lactate 3.7 H* (0.4-2.0) mmol/L Calcium 8.7 (8.5-10.1) mg/dl POC Ioniz Calcium Rose (1.12-1.32) mmol/l Phosphorus 2.2 L (2.5-4.9) mg/dl Magnesium 1.8 (1.8-2.4) mg/dl Total Bilirubin 0.9 (0.2-1) mg/dl Direct Bilirubin 0.3 H (0-0.2) mg/dl AST 24 (15-37) U/L ALT 25 (12-78) U/L Alkaline Phosphatase 114 (45-117) U/L NT-Pro-B Natriuret Pep 6749 H (0-1800) pg/ml Total Protein 8.1 (6.4-8.2) gm/dl Albumin 3.2 L (3.4-5.0) gm/dl Globulin 4.9 H (2.5-4.0) gm/dl Albumin/Globulin Ratio 0.7 L (0.9-2) Urine Color Urine Appearance (Clear) Urine pH (4.5-7.5) Ur Specific [place] (1.000-1.030) Urine Protein (Negative) Urine Glucose (UA) (Negative) Urine Ketones (Negative) Urine Blood (Negative) Urine Nitrite (Negative) Urine Bilirubin (Negative) Urine Urobilinogen (Negative) Ur Leukocyte Esterase (Negative) Urine WBC (Auto) (0-5) /hpf Urine RBC (Auto) (0-4) /hpf U Hyaline Cast (Auto) (0-5) /lpf U Epithel Cells (Auto) (0-5) /lpf Urine Bacteria (Auto) (Negative) 10/25/18 Range/Units 12:30 WBC (4.8-10.8) K/uL RBC (4.7-6.1) M/uL Hgb (14.0-18.0) g/dL POC Hgb (14.0-18.0) g/dl Hct (42-52) % POC Hct (42-52) % MCV (80-100) fL MCH (25-34) pg MCHC (32-36) g/dL RDW Std Deviation (36.4-46.3) fL RDW Coeff of Elizabeth (11.5-14.5) % Plt Count (130-400) K/uL MPV (7.4-10.4) fL Immature Gran % (Auto) % Neut % (Auto) % Lymph % (Auto) % [place] % (Auto) % Eos % (Auto) % Baso % (Auto) % Immature Gran # (Auto) (0.00-0.02) K/uL Neut # (Auto) (1.4-6.5) K/uL Lymph # (Auto) (1.2-3.4) K/uL [place] # (Auto) (0.11-0.59) K/uL Eos # (Auto) (0-0.5) K/uL Baso # (Auto) (0-0.2) K/uL PT (9.0-12.0) Seconds INR (0.9-1.1) APTT (21.0-31.0) Seconds PTT Ratio VBG pH (7.36-7.41) VBG pCO2 (38-50) mmHg VBG pO2 mmHg VBG HCO3 mmol/L VBG O2 Saturation % VBG Base Excess mEq/L Barometric Pressure mm/Hg POC Sodium (135-144) mEq/L Sodium (136-145) mmol/L POC Potassium (3.3-5.0) mEq/L Potassium (3.5-5.1) mmol/L POC Chloride (101-112) mEq/L Chloride (98-107) mmol/L Carbon Dioxide (21-32) mmol/L POC Total CO2 (24-31) mEq/l Anion Gap (3-11) POC Anion Gap (16-25) mmol/L POC BUN (7-18) mg/dl BUN (7-18) mg/dl Creatinine (0.6-1.4) mg/dl POC Creatinine (0.6-1.3) mg/dl Est Cr Clr Drug Dosing ml/min Est GFR ( Amer) Est GFR (Non-Af Amer) BUN/Creatinine Ratio (10-20) Glucose (70-99) mg/dl POC Glucose (other) (70-99) mg/dl Lactate (0.4-2.0) mmol/L Calcium (8.5-10.1) mg/dl POC Ioniz Calcium Rose (1.12-1.32) mmol/l Phosphorus (2.5-4.9) mg/dl Magnesium (1.8-2.4) mg/dl Total Bilirubin (0.2-1) mg/dl Direct Bilirubin (0-0.2) mg/dl AST (15-37) U/L ALT (12-78) U/L Alkaline Phosphatase (45-117) U/L NT-Pro-B Natriuret Pep (0-1800) pg/ml Total Protein (6.4-8.2) gm/dl Albumin (3.4-5.0) gm/dl Globulin (2.5-4.0) gm/dl Albumin/Globulin Ratio (0.9-2) Urine Color Yellow Urine Appearance Clear (Clear) Urine pH 5.0 (4.5-7.5) Ur Specific [place] 1.019 (1.000-1.030) Urine Protein Negative (Negative) Urine Glucose (UA) 2+ H (Negative) Urine Ketones Negative (Negative) Urine Blood 1+ H (Negative) Urine Nitrite Negative (Negative) Urine Bilirubin Negative (Negative) Urine Urobilinogen Negative (Negative) Ur Leukocyte Esterase Negative (Negative) Urine WBC (Auto) 1-5 (0-5) /hpf Urine RBC (Auto) 0-4 (0-4) /hpf U Hyaline Cast (Auto) 1-5 (0-5) /lpf U Epithel Cells (Auto) 5-10 H (0-5) /lpf Urine Bacteria (Auto) Negative (Negative) Imaging Data Radiologist's Impression: Radiology results as stated below per my review and the radiologist's interpretation: XR chest 1V portable CLINICAL HISTORY: Sepsis COMPARISON STUDY: 07/10/2018 FINDINGS: The study is rotated. There are postsurgical changes of a midline sternotomy and valvular replacement. There is persistent diffuse elevation of the interstitium suggestive congestive failure/fluid overload. There is no lobar consolidation.[Basilar opacities are likely atelectatic. Small pleural effusions cannot be excluded IMPRESSION: Continued radiographic evidence of mild congestive failure/fluid overload. No evidence of lobar consolidation Electronically signed by: Jaylon Alvarez M.D. 10/25/2018 12:23 PM ECG Data Attestation: I personally reviewed and interpreted this ECG as follows: Indication: SOB/dyspnea Rate (beats per minute): 141 Rhythm: atrial fibrillation (with RVR) Findings: + LBBB; no ST depression, no ST elevation and no acute ischemic change Comparison ECG Date: from (07/10/2018) Change: no significant change Blood Pressure Blood Pressure Findings: Elevated blood pressure Blood Pressure Disposition: elevated BP felt to be situational MDM Narrative The patient is a pleasant 77-year-old gentleman with a past medical history of mechanical aortic valve replacement on anticoagulation, with hospitalization 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 fib, type 2 diabetes on insulin, CVA with right-sided paresis hypertension, hyperlipidemia who presents emergency department with severe respiratory distress/respiratory failure which occurred abruptly today in the setting of recently being titrated on his Lasix regimen per hpi. Of note, the patient does have advanced directive paperwork that arrived with him that does state he is DNR and DNI. Patient is febrile to 38.0 tachycardic 140-150s. Hypertensive 190/100s. On arrival the patient is exhibiting severe work of breathing with accessory muscle use with respiratory rate in the 40s he was placed immediately on BiPAP given diffuse rales and rhonchi. Limited bedside echo however did demonstrate greater than 50% IVC variability and only minimal B-lines on lung ultrasound. Patient was given 15 mg of IV diltiazem and 500cc NS bolus with improvement in patient's A. fib with RVR from 140s to 110s and BP improved to 150/90s. EKG demonstrates patient's baseline LBBB and afib. No sgarbossa criteria. Chest x-ray demonstrates evidence of congestive failure that is similar to prior x-rays. WBC 17.5. H/H 12.6/38. 8 improved from prior values. Platelets within normal limits. INR is subtherapeutic at 1.7. Creatinine slightly increased from prior range of values at 2.4. Lactate is 3.7. BNP 6700 which is increased from 1100. UA without convincing evidence of infection. The patient was ordered for broad-spectrum antibiotics with Zosyn and Vancomycin given his fever and concern for sepsis. At this time there is unclear source for infection though the patient does have lower extremity erythema and warmth that is consistent with cellulitis. The patient's fluid status certainly is tenuous given patient's CHF and valvular disease in the setting of sepsis. Patient will likely require a combination of hydration and diuresis. Patient's INR is subtherapeutic in the setting of his mechanical valve which was ordered for heparin. However, click is heard on auscultation and so less likely to have had thrombosis. Case was discussed with Dr. Casas, [place] hospitalist, and Yuko Sims PA-C, who will evaluate the patient for likely ICU admission for close monitoring. Impression & Plan Respiratory failure, Sepsis, Leukocytosis, Acute on chronic renal failure Critical Care Time Critical Care Time: Yes Total Critical Care Time: 95 I have personally spent greater than 95 minutes of critical care time in the direct management of this patient. This includes bedside care, interpretation of diagnostic studies, and testing, discussion with consultants, patient, and family members, and other required patient management activities. This 95 minutes is in excess of all separately billable procedures. Discharge Plan Visit Data *Final* Discharge Date/Time: 10/25/18 15:35 Chief Complaint: Shortness of Breath/Dyspnea ED Provider: Troy Campbell Discharge Problem: Respiratory failure, Sepsis, Leukocytosis, Acute on chronic renal failure Patient Disposition: Admitted As Inpatient Discharge Instructions Interventions: ED Discharge Assessment Last Done: 10/25/18 15:35 Discharge Problem: Respiratory failure Qualifiers: Chronicity: acute Respiratory failure complication: unspecified whether with hypoxia or hypercapnia Qualified Code(s): J96.00 - Acute respiratory failure, unspecified whether with hypoxia or hypercapnia Sepsis Qualifiers: Sepsis type: sepsis due to unspecified organism Qualified Code(s): A41.9 - Sepsis, unspecified organism Leukocytosis Qualifiers: Leukocytosis type: unspecified Qualified Code(s): D72.829 - Elevated white blood cell count, unspecified Acute on chronic renal failure Qualifiers: Acute renal failure type: unspecified Chronic kidney disease stage: unspecified stage Qualified Code(s): N17.9 - Acute kidney failure, unspecified The scribe's documentation has been prepared under my direction and personally reviewed by me in its entirety. I confirm that the note above accurately reflects all work, treatment, procedures, and medical decision making performed by me.
[2018-10-25] MEDS ORDERED: FUROSEMIDE 20 MG in SYRINGE 0 ML IV ONE (15:04)
[2018-10-25] MEDS ORDERED: FUROSEMIDE 40 MG/4 ML VIAL IV ONE (15:08)
[2018-10-25] MEDS ORDERED: ACETAMINOPHEN 65 ML IV PRN (16:06)
[2018-10-25] MEDS ORDERED: GLUCOSE 40% GEL 15 GM TUBE PO PRN (16:06)
[2018-10-25] MEDS ORDERED: GLUCOSE 10 TABS/TUBE PO PRN (16:06)
[2018-10-25] MEDS ORDERED: CARBOHYDRATES FOR HYPOGLYCEMIA PO PRN (16:06)
[2018-10-25] MEDS ORDERED: DEXTROSE 50% 50 ML SYRINGE IV PRN (16:06)
[2018-10-25] MEDS ORDERED: ALBUT/IPRATROP 3MG/0.5MG NEB 3 ML VIAL INH PRN (16:06)
[2018-10-25] MEDS ORDERED: Heparin IV Standard *NO* Bolus IV ONE (16:06)
[2018-10-25] MEDS ORDERED: GLUCAGON FOR INJ 1 MG VIAL SQ PRN (16:06)
[2018-10-25] MEDS ORDERED: CONSULT PHARMACY STA (16:06)
[2018-10-25] MEDS ORDERED: DAPTOMYCIN CONSULT ACTIVE PRN (16:52)
[2018-10-25] MEDS ORDERED: PHARMACY GLYCEMIC MGMT CONSULT PRN (17:06)
[2018-10-25] MEDS: Heparin Adult LOW DOSE Wt-Based Dextrose 5% 25,000 units/500 mL IV SCH (17:12)
[2018-10-25] MEDS: PIPERACILLIN/TAZOBACTAM 4.5 GM in DEXTROSE 5% 100 ML IV SCH (17:13)
[2018-10-25] MEDS ORDERED: DAPTOmycin 300 MG in SYRINGE 0 ML IV SCH (18:00)
[2018-10-25] MEDS: INSULIN ASPART 100 UNITS/ML 3 ML PEN SC SCH (18:06)
[2018-10-25 18:43] LABS: Partial Thromboplastin Ratio 3.1
[2018-10-25 18:47] LABS: Partial Thromboplastin Time 83.5 Seconds (21.0-31.0)
[2018-10-25 20:22] LABS: Base Excess ABG -1.5 mEq/L (-9-1.8); HCO3 ABG 27 mmol/L (19-24); Oxygen Saturation ABG 96.3 % (90-95); PCO2 ABG 65 mmHg (35-46); PO2 ABG 95 mm/Hg (80-95); pH ABG 7.24 (7.35-7.45)
[2018-10-25 20:23] LABS: Allen Test Pos (Pos)
[2018-10-25] MEDS: METOPROLOL SUCC 25MG EXT REL TAB PO SCH (20:55)
[2018-10-25] MEDS ORDERED: INSULIN GLARGINE SOLOSTAR 100 UNITS/ML 3 ML PEN SC SCH (21:00)
[2018-10-25] MEDS ORDERED: PHARMACY GLYCEMIC MGMT CONSULT STA (21:21)
[2018-10-25] MEDS ORDERED: INSULIN GLARGINE SOLOSTAR 100 UNITS/ML 3 ML PEN SC STA (21:38)
[2018-10-25] MEDS ORDERED: XOPENEX/ATROVENT 1.25mg/0.5MG NEB COMBO NEB STA (22:13)
[2018-10-25] MEDS ORDERED: MAGNESIUM SULFATE / D5W 1 GM/100 ML BAG IV ONE (22:15)
[2018-10-25] MEDS ORDERED: DOXYCYCLINE HYCLATE 100 MG in DEXTROSE 5% 100 ML IV STA (22:17)
--- NOTE | 2018-10-25 22:17 | Hospitalist Progress Note ---
Date of Service October 25, 2018 Results & Data Vital Signs (Past 12 Hours) Vital Signs Temp Pulse Pulse Resp BP BP BP 10/25/18 21:22 36.9 C 107 H 19 113/66 10/25/18 20:52 118 H 103/65 10/25/18 20:42 97 H 99/63 L 10/25/18 20:28 105 H 93/55 L 10/25/18 20:19 110 H 20 10/25/18 20:12 103 H 93/59 L 10/25/18 19:57 99 H 96/60 L 10/25/18 19:42 105 H 115/74 10/25/18 19:02 37 C 89 20 138/90 10/25/18 17:26 110 H 20 10/25/18 16:10 97 H 21 10/25/18 16:06 96 H 10/25/18 15:35 37.2 C 85 22 98/66 L 10/25/18 15:03 101 H 21 106/56 L 10/25/18 14:45 93 H 28 H 93/50 L 10/25/18 14:33 38.5 C H 10/25/18 14:30 98 H 39 H 92/54 L 10/25/18 14:01 104 H 35 H 109/59 L 10/25/18 14:00 100 H 38 H 10/25/18 13:45 124 H 38 H 153/97 H 10/25/18 13:30 131 H 34 H 152/91 H 10/25/18 13:22 38.5 C H 10/25/18 13:15 132 H 40 H 156/88 H 10/25/18 13:00 104 H 36 H 144/94 H 10/25/18 12:45 101 H 41 H 143/81 H 10/25/18 12:31 40 H 165/95 H 10/25/18 12:30 32 H 10/25/18 12:21 119 H 34 H 168/103 H 10/25/18 12:16 109 H 40 H 168/121 H 10/25/18 12:15 107 H 36 H 10/25/18 12:07 108 H 45 H 172/91 H 10/25/18 12:05 40 H 10/25/18 12:00 155 H 48 H 192/151 H 10/25/18 11:53 139 H 37 H 10/25/18 11:50 38 C H 48 H 177/113 H Pulse Ox 10/25/18 21:22 99 10/25/18 20:52 97 10/25/18 20:42 97 10/25/18 20:28 98 10/25/18 20:19 94 10/25/18 20:12 97 10/25/18 19:57 98 10/25/18 19:42 97 10/25/18 19:02 98 10/25/18 17:26 96 10/25/18 16:10 96 10/25/18 16:06 10/25/18 15:35 98 10/25/18 15:03 98 10/25/18 14:45 99 10/25/18 14:33 10/25/18 14:30 98 10/25/18 14:01 97 10/25/18 14:00 98 10/25/18 13:45 100 10/25/18 13:30 100 10/25/18 13:22 10/25/18 13:15 100 10/25/18 13:00 100 10/25/18 12:45 100 10/25/18 12:31 100 10/25/18 12:30 100 10/25/18 12:21 97 10/25/18 12:16 100 10/25/18 12:15 97 10/25/18 12:07 100 10/25/18 12:05 100 10/25/18 12:00 96 10/25/18 11:53 94 10/25/18 11:50 100
[2018-10-25] MEDS ORDERED: IPRATROPIUM BROMIDE NEB SOLN 0.02% 2.5 ML VIAL INH STA (22:24)
[2018-10-25] MEDS ORDERED: LEVALBUTEROL 1.25MG/0.5ML NEB INH STA (22:24)
[2018-10-25] MEDS ORDERED: methylPREDNISolone 40 MG in SYRINGE 0 ML IV ONE (22:30)
[2018-10-25] MEDS: POTASSIUM CHLORIDE / WTR 10 MEQ/100 ML PLCT IV SCH ×2 (22:50→23:50)
--- NOTE | 2018-10-25 22:57 | XRay Report ---
SINGLE VIEW CHEST CLINICAL HISTORY: Respiratory distress. FINDINGS: An AP, portable, upright chest radiograph is compared to study dated 10/25/2018 and correlat ed with chest CT dated 06/12/2018. The examination is degraded by portable technique and patient rotat ion. The patient is status post midline sternotomy with evidence of previous cardiac valve surgery. The heart is enlarged and there is atherosclerotic calcification of the thoracic aorta. There is pul monary vascular congestion. Small pleural effusions are suspected. Bibasilar atelectasis is noted. No pneumothorax is seen. The skeletal structures are osteopenic. Chronic posttraumatic change is partia lly visualized in the right proximal humerus. IMPRESSION: 1. Cardiomegaly with evidence of mild congestive failure. This is unchanged from earlier today. 2. Suspect small pleural effusions. Electronically signed by: Steven Fam M.D. 10/25/2018 10:56 PM
[2018-10-25 23:27] LABS: Base Excess ABG -0.7 mEq/L (-9-1.8); HCO3 ABG 26 mmol/L (19-24); Oxygen Saturation ABG 98.2 % (90-95); PCO2 ABG 54 mmHg (35-46); PO2 ABG 122 mm/Hg (80-95); pH ABG 7.31 (7.35-7.45)
[2018-10-25 23:42] LABS: Allen Test POS (Pos)
[2018-10-26] MEDS: INSULIN ASPART 100 UNITS/ML 3 ML PEN SC SCH ×5 (00:01→21:04)
[2018-10-26 01:51] LABS: Basophils # (auto) 0.02 K/uL (0-0.2); Basophils % (auto) 0.1 %; Hematocrit (blood only) 34.5 % (42-52); Hemoglobin 11.1 g/dL (14.0-18.0); Immature Granulocytes # (auto) 0.05 K/uL (0.00-0.02); Immature Granulocytes % (auto) 0.3 %; Lymphocytes # (auto) 0.76 K/uL (1.2-3.4); Lymphocytes % (auto) 4.6 %; Mean Corpuscular Hgb Conc 32.2 g/dL (32-36); Mean Platelet Volume 10.4 fL (7.4-10.4); Monocytes # (auto) 0.56 K/uL (0.11-0.59); Monocytes % (auto) 3.4 %; Neutrophils % (auto) 91.6 %; Platelet Count 115 K/uL (130-400); RDW Coefficient of Variation 17.6 % (11.5-14.5); RDW Standard Deviation 55.7 fL (36.4-46.3); Red Blood Count 4.01 M/uL (4.7-6.1); White Blood Count 16.39 K/uL (4.8-10.8)
[2018-10-26] MEDS ORDERED: XOPENEX/ATROVENT 1.25mg/0.5MG NEB COMBO NEB SCH (02:00)
[2018-10-26 02:10] LABS: INR 1.7 (0.9-1.1); Partial Thromboplastin Ratio 2.5; Prothrombin Time 16.5 Seconds (9.0-12.0)
[2018-10-26] MEDS: LEVALBUTEROL 1.25MG/0.5ML NEB INH SCH ×2 (02:11→07:25)
[2018-10-26] MEDS: IPRATROPIUM BROMIDE NEB SOLN 0.02% 2.5 ML VIAL INH SCH ×2 (02:11→07:25)
[2018-10-26 02:13] LABS: Partial Thromboplastin Time 66.4 Seconds (21.0-31.0)
[2018-10-26 02:14] LABS: BUN Creatinine Ratio 14.1 (10-20); Calcium 7.8 mg/dl (8.5-10.1); Creatinine Clr Calc Pharmacy 30.2 ml/min; Est GFR (African American) 24.6; Est GFR (Non-African American) 21.2; Potassium 4.5 mmol/L (3.5-5.1)
[2018-10-26] MEDS: PIPERACILLIN/TAZOBACTAM 4.5 GM in DEXTROSE 5% 100 ML IV SCH ×3 (02:15→18:14)
[2018-10-26] MEDS ORDERED: INSULIN ASPART 100 UNITS/ML 3 ML PEN SC SCH (04:00)
[2018-10-26] MEDS ORDERED: LEVOTHYROXINE SODIUM 37.5 MCG in SYRINGE 0 ML IV SCH ×2 (06:30→09:00)
[2018-10-26 06:35] LABS: Estimated Average Glucose 217 mg/dl; Hemoglobin A1C 9.2 % (4.5-5.6)
[2018-10-26] MEDS ORDERED: VANCOMYCIN HCL 1,250 MG in SODIUM CHLORIDE 0.9% 250 ML IV ONE (08:30)
[2018-10-26] MEDS ORDERED: INSULIN GLARGINE SOLOSTAR 100 UNITS/ML 3 ML PEN SC SCH ×2 (09:00)
[2018-10-26] MEDS ORDERED: DOXYCYCLINE HYCLATE 100 MG in DEXTROSE 5% 100 ML IV SCH (10:00)
--- NOTE | 2018-10-26 10:23 | Hospitalist Progress Note ---
Date of Service October 26, 2018 Assessment & Plan (1) Severe sepsis: He has a cellulitis on the RLE and new GPC bacteremia. Daptomycin switched to Vancomycin overnight. Cont Zosyn. (2) Bacteremia due to Gram-positive bacteria: Poss skin source and h/o endocarditis. TTE pending. Will consult ID. (3) Acute metabolic encephalopathy: resolved with treatment overnight (4) Heart failure, diastolic, with acute decompensation: 600 cc out into shrestha overnight in response to Lasix 60mg IV. Urine is concentrated appearing. CXR appears more clear with diuresis and lung exam is more clear with better air movement. Suspect intravascular depletion in the setting of sepsis. Plan to remove BIPAP, ensure respiratory stability and give fluid challenge to help with heart rate and hemodynamics at this point. Hold diuretics. (5) Acute renal failure superimposed on stage 3 chronic kidney disease: Suspect intravascular depletion in the setting of sepsis. Hold diuretics with worsening MAYLIN this am on lab work. Order urine studies to better elucidate volume status. Consider fluid challenge as above. (6) Cellulitis of right lower extremity: Cont Vanc and Zosyn (7) T2DM (type 2 diabetes mellitus): Still hyperglycemic this am. Appreciate inpatient glycemic pharma recs- they are making insulin adjustments daily and as needed. (8) History of endocarditis: Has a mechanical aortic valve present with a h/o endocarditis. TTE pending. (9) Chronic atrial fibrillation: RVR overnight in response to sepsis. Will likely restart oral metoprolol today per Cardiology recommendation. Will also plan to give fluids today which may further improve hemodynamics as suspect intravscular volume depletion. (10) Respiratory failure: Acute respiratory acidosis overnight-improved on BIPAP overnight. Trial off BIPAP this morning. (11) DVT prophylaxis: Heparin drip until INR therapeutic, coumadin DNR/DNI Dispo-cont PCU for several days. PT/OT once stable from a respiratory standpoint. Perri Casas DO [facility] Hospitalist. Subjective Still on BIPAP but more easily awakens this morning. Denies SOB. Reports two days of leg pain and fevers prior to arrival. Reports two days of coughing MANAGER STUDY, but it isn't clear if he had a head cold with other symptoms per his history. Denies chest pain or abdominal pain at this time. Denies shortness of breath with ambulation prior to arrival. Encephalopathy appears to have resolved. Discussed with respiratory to try him off the BIPAP. Relayed this plan with the floor nurse. After some time of demonstrated stability off the BIPAP, may offer some food/oral pills. Review of Systems Review of Systems: All systems reviewed & are unremarkable except as noted in HPI & below Physical Exam Physical Exam: CONSTITUTIONAL: obese, vitals as above, on BIPAP, not working to breathe. EYES: normal conjunctivae, no scleral icterus ENT: BIPAP in place. NECK: no JVD present RESPIRATORY: clear to auscultation bilaterally, no crackles, rales or wheezes, normal respiratory effort CARDIOVASCULAR: regular rate and rhythm, S1 and 2 heard without murmurs, mechanical valve click is audible. No JVD, trace peripheral edema GASTROINTESTINAL: normal bowel sounds, soft, nontender, nondistended MUSCULOSKELETAL: general weakness SKIN: warm and dry, open wounds present on R>L leg. erythematous rash surrounding wounds on R leg. NEUROLOGIC: CN 2-12 grossly intact, normal cognition but fatigued on the BIPAP, easily awakens PSYCHIATRIC: alert cooperative and oriented to person, place and time. Results & Data Vital Signs (Past 12 Hours) Vital Signs Temp Pulse Pulse Pulse Resp BP Pulse Ox 10/26/18 08:00 86 10/26/18 07:25 86 86 21 97 10/26/18 07:13 36.5 C 94 H 20 99/66 L 96 10/26/18 03:50 36.8 C 92 H 22 116/77 98 10/26/18 02:13 99 H 23 97 10/26/18 02:12 99 H 23 97 10/26/18 00:10 37.1 C 106 H 22 105/66 92 10/25/18 22:27 95 H 23 100 10/25/18 22:26 110 H 23 100 Laboratory Results Short CBC 10/25/18 10/26/18 Range/Units 12:13 01:30 WBC 17.57 H 16.39 H (4.8-10.8) K/uL Hgb 12.6 L 11.1 L (14.0-18.0) g/dL Hct 38.8 L 34.5 L (42-52) % Plt Count 135 115 L (130-400) K/uL BMP 10/25/18 10/26/18 12:13 01:30 Sodium 140 139 Potassium 3.9 4.5 D Chloride 105 105 Carbon Dioxide 27 30 BUN 32 H 39 H Creatinine 2.44 H 2.74 H D Glucose 300 H 243 H Calcium 8.7 7.8 L Liver Function 10/25/18 Range/Units 12:13 Total Bilirubin 0.9 (0.2-1) mg/dl Direct Bilirubin 0.3 H (0-0.2) mg/dl AST 24 (15-37) U/L ALT 25 (12-78) U/L Alkaline Phosphatase 114 (45-117) U/L Albumin 3.2 L (3.4-5.0) gm/dl Urine 10/25/18 Range/Units 12:30 Urine Color Yellow Urine Appearance Clear (Clear) Urine pH 5.0 (4.5-7.5) Ur Specific [place] 1.019 (1.000-1.030) Urine Protein Negative (Negative) Urine Glucose (UA) 2+ H (Negative) Medications Administered Current Inpatient Medications Dextrose (Dextrose 50%) 25 - 50 ml IV UD PRN; Protocol PRN Reason: Hypoglycemia Protocol Stop: 11/24/18 16:05 Glucagon (Glucagen) 1 mg SQ UD PRN; Protocol PRN Reason: Hypoglycemia Protocol Stop: 11/24/18 16:05 Glucose (Glucose 40%) 15 - 30 gm PO UD PRN; Protocol PRN Reason: Hypoglycemia Protocol Stop: 11/24/18 16:05 Glucose (Dex4 Glucose) 4 - 8 tabs PO UD PRN; Protocol PRN Reason: Hypoglycemia Protocol Stop: 11/24/18 16:05 Acetaminophen (Ofirmev) 65 mls @ 200 mls/hr IV Q4H PRN PRN Reason: Fever Stop: 11/24/18 16:05 Heparin Sodium/Dextrose (Heparin Sodium/Dextrose) 25,000 units in 500 mls @ 16 mls/hr IV .Q24H JOYCE; Protocol Stop: 11/24/18 16:14 Last Titration: 10/25/18 19:01 Dose: 800 units/hr, 16 mls/hr Documented by: Piperacillin Sod/Tazobactam (Sod 4.5 gm/ Dextrose) 120 mls @ 30 mls/hr IV Q8H JOYCE; Protocol Stop: 11/04/18 17:59 Last Infusion: 10/26/18 06:17 Dose: Infused Documented by: Levothyroxine Sodium 37.5 mcg/ (Syringe) 1.875 mls @ 2 mls/min IV DAILY JOYCE Stop: 11/25/18 08:59 Last Admin: 10/26/18 08:57 Dose: 2 mls/min Documented by: Vancomycin HCl 1,250 mg/ (Sodium Chloride) 275 mls @ 125 mls/hr IV NOW ONE Stop: 10/26/18 10:41 Last Admin: 10/26/18 08:57 Dose: 125 mls/hr Documented by: Insulin Aspart (Novolog Flexpen) 0 units SC Q6 JOYCE Stop: 11/24/18 17:59 Last Admin: 10/26/18 06:09 Dose: 5 units Documented by: Insulin Glargine (Lantus Solostar Pen) 25 units SC BID JOYCE Stop: 11/25/18 08:59 Last Admin: 10/26/18 08:50 Dose: 25 units Documented by: Ipratropium [place] (Atrovent 0.02% 0.5mg/2.5ml) 0.5 mg INH Q6R JOYCE Stop: 11/25/18 01:59 Last Admin: 10/26/18 07:25 Dose: 0.5 mg Documented by: Levalbuterol HCl (Xopenex 1.25mg/0.5ml Neb) 1.25 mg INH Q6R JOYCE Stop: 11/25/18 01:59 Last Admin: 10/26/18 07:25 Dose: 1.25 mg Documented by: Metoprolol Succinate (Toprol Xl) 12.5 mg PO BID JOYCE Stop: 11/24/18 20:59 Last Admin: 10/25/18 20:55 Dose: Not Given Documented by: Miscellaneous (Carbohydrates For Hypoglycemia) 15 - 30 gm PO UD PRN PRN Reason: Hypoglycemia Treatment Stop: 11/24/18 16:05 Miscellaneous Information (Consult) 1 ea N/A UD PRN PRN Reason: Consult Stop: 11/24/18 12:13 Miscellaneous Information (Consult Glycemic Management Pharmacy) 1 ea N/A UD PRN; Protocol PRN Reason: Consult Stop: 11/24/18 17:05 Miscellaneous Information (Consult) 1 ea N/A UD PRN PRN Reason: Consult Stop: 11/24/18 23:14 (1) Respiratory failure Chronicity: acute Respiratory failure complication: unspecified whether with hypoxia or hypercapnia Qualified Code(s): J96.00 - Acute respiratory failure, unspecified whether with hypoxia or hypercapnia
[2018-10-26] MEDS ORDERED: LEVALBUTEROL 1.25MG/0.5ML NEB INH PRN (12:44)
[2018-10-26] MEDS ORDERED: IPRATROPIUM BROMIDE NEB SOLN 0.02% 2.5 ML VIAL INH PRN (12:44)
[2018-10-26] MEDS ORDERED: MICONAZOLE NITRATE POWDER 43 GM EXT PRN (13:57)
--- NOTE | 2018-10-26 14:01 | Infectious Disease Consult ---
Date of Consultation October 26, 2018 Assessment & Plan (1) Gram positive sepsis: highly concerning for IE, especially with AVR and previous MV IE in 05/2018. continue broad spectrum abx for now, will change to renal dosed dapto pending further micro data. hold gent due to elevated creat. repeat blood cultures, echo pending. may need TENNILLE, would have low threshold for transfer for ct surgery eval if suspected recurrent IE. will follow. History of Present Illness Attending Physician: Perri Casas DO pt admitted with weakness x 1 day. found to have fever 38.5 and afib with rvr, being followed by cardio. was previously admitted in May with GBS sepsis and MV veg noted on TENNILLE. has h/o AVR. was treated with prolonged period of IV Rocephin, stopped 07/21, picc removed. tolerated well. now presents with new fe frederick, currently afebrile, denies f/c at home, but states he is cold on my exam today. denies rigors. Admission blood cultures growing gpc, s. aureus pcr negative. Placed on vanco and zosyn in ER, random vanco level 14. has h/o ckd, creat elevated to 2.7, lactate initially 3.7, now 1.5. CXR negative, UA negative. wbc initially 17, now 16. Denies cp, sob, schwab, cough, n/v/d/abd pain, states feeling well until yesterday. asking to eat on my exam. states he is cold, otherwise no complaints. Allergies Allergy/AdvReac Type Severity Reaction Status Date / Time No Known Allergies Allergy Unverified 10/25/18 14:08 Home Medications Home Medications Medication Instructions Recorded Confirmed Type atorvastatin 40 mg PO QAM 02/23/18 10/25/18 History docusate sodium 100 mg PO AMHS 02/23/18 10/25/18 History folic acid 1 mg PO QAM 02/23/18 10/25/18 History isosorbide mononitrate 90 mg PO QAM 02/23/18 10/25/18 History lisinopril 40 mg PO QAM 02/23/18 10/25/18 History nitroglycerin 0.4 mg SUBLINGUAL DIRECTED PRN 02/23/18 10/25/18 History terazosin 2 mg PO HS 02/24/18 10/25/18 History aspirin [Aspirin Childrens] 0.5 tab PO AMHS 07/10/18 10/25/18 History insulin glargine [Lantus Solostar 20 units SQ AMHS 07/10/18 10/25/18 History U-100 Insulin] ferrous sulfate 325 mg PO QAM 10/25/18 10/25/18 History furosemide 80 mg PO BID 10/25/18 10/25/18 History insulin lispro [Humalog KwikPen 4 unit SUBCUT TID 10/25/18 10/25/18 History Insulin] levothyroxine [Synthroid] 75 mcg PO QAM 10/25/18 10/25/18 History metoprolol tartrate 37.5 mg PO AMHS 10/25/18 10/25/18 History spironolactone 12.5 mg PO QAM 10/25/18 10/25/18 History warfarin 2.5 mg PO DAILY 10/25/18 10/25/18 History Patient History Medical History Coronary artery disease (Chronic) T2DM (type 2 diabetes mellitus) (Chronic) HTN (hypertension) (Chronic) History of endocarditis (Chronic) 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 weeks 05/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 LBBB (left bundle branch block) (Chronic) PVD (peripheral vascular disease) (Chronic) 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 (Chronic) senior care current use of anticoagulant (Chronic) INR goal 2-3 Chronic atrial fibrillation (Chronic) Cerebrovascular disease (Chronic) Chronic diastolic heart failure (Chronic) ASCVD (arteriosclerotic cardiovascular disease) (Chronic) Septicemia due to group B Streptococcus (Resolved) Hypothyroidism (Chronic) Hyperlipidemia (Chronic) PAF (paroxysmal atrial fibrillation) (Chronic) Diabetes type 2, uncontrolled (Chronic) Surgical History History of cardiac catheterization (Chronic) Nonobstructive CAD S/P aortic valve replacement (Chronic) Family History Other Unknown family medical history Social History Preferred Language: Indonesian Communication Ability: Effective Beliefs That Will Affect Care: None marital status: Current Living Situation: Spouse Current Living Situation Comment: Lives with and aunt Other Information That Helps Us Care for You: Yes Feels Safe at Home: Yes Safety Concerns: Feels Safe At This Time Smoking Status: Never smoker Tobacco Type: cigars Cigarettes Per Day: 1 cigar per day Second Hand Exposure: No Hx Alcohol Use: No Hx Substance Use: No Review of Systems Review of Systems: All systems reviewed & are unremarkable except as noted in HPI & below Physical Exam Constitutional: WD/WN, vitals as above Eyes: PERRL, conjunctivae normal, anicteric sclerae ENMT: external ear and nose normal, oropharynx normal drymm Neck: normal visual inspection Respiratory: normal respiratory effort Auscultation: + diminished lung sounds Cardiovascular: Rate/Rhythm: + irregularly irregular; + abnormal rate and + abnormal rhythm Heart Sounds: + murmur Extremities: no pedal edema and no edema Gastrointestinal (Abdomen): normal bowel sounds, soft, nontender, no hepato splenomegaly Musculoskeletal: no cyanosis or clubbing, extremities motor strength 5/5 Skin: no rashes, warm and dry Psychiatric: A+Ox3, euthymic affect Results & Data Vital Signs (Past 12 Hours) Vital Signs Temp Pulse Pulse Pulse Resp BP Pulse Ox 10/26/18 11:16 36.4 C L 100 H 20 105/65 95 10/26/18 08:00 86 10/26/18 07:25 86 86 21 97 10/26/18 07:13 36.5 C 94 H 20 99/66 L 96 10/26/18 03:50 36.8 C 92 H 22 116/77 98 10/26/18 02:13 99 H 23 97 10/26/18 02:12 99 H 23 97 Laboratory Results Microbiology 10/25/18 12:10 Blood Aerobic Blood Culture - Preliminary Gram positive cocci 10/25/18 12:10 Blood Anaerobic Blood Culture - Preliminary Gram positive cocci 10/25/18 12:00 Blood Aerobic Blood Culture - Preliminary Gram positive cocci PG Care Time/CCT Total # of Minutes Spent Total Time Spent with Patient: Total time spent is greater than 50% in coordination of care (as documented) at patient's floor/unit and/or counseling patient:
--- NOTE | 2018-10-26 14:20 | Cardiology Progress Note ---
Date of Service October 26, 2018 Assessment & Plan (1) Gram positive sepsis: Patient on broad-spectrum antibiotics for culture determinant pending. Initial echocardiogram demonstrates normally functioning mechanical prosthesis in the aortic valve position, no valvular dysfunction or 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 no visualized vegetations on limited study Concerns still remain regarding possible prosthetic valve endocarditis. Follow with as clinical course progresses, consider TENNILLE once pulmonary status im proved Patient would be high risk for valve replacement given morbidities and renal 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. Mechanical prosthesis remains competent at this time (2) Heart failure, diastolic, with acute decompensation: Pulmonary status improved predominately with treating underlying sepsis. Mild volume overload remains present by examination however will continue to require fluid resuscitation for treatment of underlying infection and renal 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, acute Antihypertensives remain on hold as do diuretics. Will hold spironolactone as well (3) Acute renal failure superimposed on stage 3 chronic kidney disease: As above (4) Lactic acidosis: Elevated white cell count and presentation suggest sepsis process. Fluid resuscitation to proceed cautiously given volume overload. (5) Cellulitis of right lower extremity: (6) S/P aortic valve replacement: Mechanical prosthesis in place. Continue heparin until INR therapeutic (7) LBBB (left bundle branch block): (8) Chronic atrial fibrillation: Patient in atrial fibrillation persistently since July. As above we will change metoprolol to long-acting format Heart rate and ventricular response rate elevated due to acute illness (9) Respiratory failure: Multifactorial etiology chest x-ray with only mild increased interstitial markings Subjective Patient time of examination this morning off BiPAP answering questions. Much less confusion somnolence noted last evening. Patient afebrile however blood cultures growing gram-positive cocci. Patient remains in atrial fibrillation with generally controlled ventricular response rate No visualized vegetations on echocardiogram Review of Systems Review of Systems: Unobtainable due to cognitive status Physical Exam Constitutional: + ill appearing and + obese In less distress than on previous examination Eyes: PERRL, conjunctivae normal, anicteric sclerae Neck: trachea midline, no thyromegaly + thick neck Respiratory: Auscultation: + diminished lung sounds; no wheezes Cardiovascular: Rate/Rhythm: + irregularly irregular Heart Sounds: normal S1, normal S2 and + murmur (Grade 2/6 systolic murmur with crisp mechanical valve sound, no diastolic) Vessels: no JVD and no carotid bruit Extremities: + edema (Moderate bilateral edema right greater than left) Gastrointestinal (Abdomen): normal bowel sounds, soft, nontender, no hepatosplenomegaly Skin: Chronic stasis changes lower extremities much less erythema and surrounding induration right leg and thigh per day prior Results & Data Vital Signs (Past 12 Hours) Vital Signs Temp Pulse Pulse Pulse Resp BP Pulse Ox 10/26/18 11:16 36.4 C L 100 H 20 105/65 95 10/26/18 08:00 86 10/26/18 07:25 86 86 21 97 10/26/18 07:13 36.5 C 94 H 20 99/66 L 96 10/26/18 03:50 36.8 C 92 H 22 116/77 98 Laboratory Results Laboratory Results - last 24 hr 10/25/18 10/25/18 10/25/18 15:42 16:19 18:11 WBC RBC Hgb Hct MCV MCH MCHC RDW Std Deviation RDW Coeff of Elizabeth Plt Count MPV Immature Gran % (Auto) Neut % (Auto) Lymph % (Auto) Greenlee % (Auto) Eos % (Auto) Baso % (Auto) Immature Gran # (Auto) Neut # (Auto) Lymph # (Auto) Greenlee # (Auto) Eos # (Auto) Baso # (Auto) PT INR APTT 83.5 H* PTT Ratio 3.1 ABG pH ABG pCO2 ABG pO2 ABG HCO3 ABG O2 Saturation ABG Base Excess Len Test Barometric Pressure Oxygen Given Sodium Potassium Chloride Carbon Dioxide Anion Gap BUN Creatinine Est Cr Clr Drug Dosing Est GFR ( Amer) Est GFR (Non-Af Amer) BUN/Creatinine Ratio Glucose POC Glucose 269 H Estimat Average Glucose Hemoglobin A1c Lactate 2.3 H* Calcium Magnesium Urine Osmolality Ur Random Creatinine Ur Random Sodium Ur Random Urea Nitrogn Nasal Screen MRSA (PCR) Random Vancomycin 10/25/18 10/25/18 10/25/18 19:57 19:57 20:32 WBC RBC Hgb Hct MCV MCH MCHC RDW Std Deviation RDW Coeff of Elizabeth Plt Count MPV Immature Gran % (Auto) Neut % (Auto) Lymph % (Auto) Greenlee % (Auto) Eos % (Auto) Baso % (Auto) Immature Gran # (Auto) Neut # (Auto) Lymph # (Auto) Greenlee # (Auto) Eos # (Auto) Baso # (Auto) PT INR APTT PTT Ratio ABG pH 7.24 L ABG pCO2 65 H ABG pO2 95 ABG HCO3 27 H ABG O2 Saturation 96.3 H ABG Base Excess -1.5 Len Test Pos Barometric Pressure 733.2 Oxygen Given 40% Sodium Potassium Chloride Carbon Dioxide Anion Gap BUN Creatinine Est Cr Clr Drug Dosing Est GFR ( Amer) Est GFR (Non-Af Amer) BUN/Creatinine Ratio Glucose POC Glucose 255 H Estimat Average Glucose Hemoglobin A1c Lactate 1.5 Calcium Magnesium Urine Osmolality Ur Random Creatinine Ur Random Sodium Ur Random Urea Nitrogn Nasal Screen MRSA (PCR) Random Vancomycin 10/25/18 10/25/18 10/25/18 23:09 23:59 Unknown WBC RBC Hgb Hct MCV MCH MCHC RDW Std Deviation RDW Coeff of Elizabeth Plt Count MPV Immature Gran % (Auto) Neut % (Auto) Lymph % (Auto) Greenlee % (Auto) Eos % (Auto) Baso % (Auto) Immature Gran # (Auto) Neut # (Auto) Lymph # (Auto) Greenlee # (Auto) Eos # (Auto) Baso # (Auto) PT INR APTT PTT Ratio ABG pH 7.31 L ABG pCO2 54 H ABG pO2 122 H ABG HCO3 26 H ABG O2 Saturation 98.2 H ABG Base Excess -0.7 Len Test POS Barometric Pressure 733.8 Oxygen Given 35% O2 Sodium Potassium Chloride Carbon Dioxide Anion Gap BUN Creatinine Est Cr Clr Drug Dosing Est GFR ( Amer) Est GFR (Non-Af Amer) BUN/Creatinine Ratio Glucose POC Glucose 249 H Estimat Average Glucose Hemoglobin A1c Lactate Calcium Magnesium Urine Osmolality Ur Random Creatinine Ur Random Sodium Ur Random Urea Nitrogn Nasal Screen MRSA (PCR) Positive A Random Vancomycin 10/26/18 10/26/18 10/26/18 01:30 01:30 01:30 WBC 16.39 H RBC 4.01 L Hgb 11.1 L Hct 34.5 L MCV 86.0 MCH 27.7 MCHC 32.2 RDW Std Deviation 55.7 H RDW Coeff of Elizabeth 17.6 H Plt Count 115 L MPV 10.4 Immature Gran % (Auto) 0.3 Neut % (Auto) 91.6 Lymph % (Auto) 4.6 Greenlee % (Auto) 3.4 Eos % (Auto) 0.0 Baso % (Auto) 0.1 Immature Gran # (Auto) 0.05 H Neut # (Auto) 15.00 H Lymph # (Auto) 0.76 L Greenlee # (Auto) 0.56 Eos # (Auto) 0.00 Baso # (Auto) 0.02 PT 16.5 H INR 1.7 H APTT 66.4 H* PTT Ratio 2.5 ABG pH ABG pCO2 ABG pO2 ABG HCO3 ABG O2 Saturation ABG Base Excess Len Test Barometric Pressure Oxygen Given Sodium 139 Potassium 4.5 D Chloride 105 Carbon Dioxide 30 Anion Gap 4.0 BUN 39 H Creatinine 2.74 H D Est Cr Clr Drug Dosing 30.2 Est GFR ( Amer) 24.6 Est GFR (Non-Af Amer) 21.2 BUN/Creatinine Ratio 14.1 Glucose 243 H POC Glucose Estimat Average Glucose Hemoglobin A1c Lactate Calcium 7.8 L Magnesium 2.0 Urine Osmolality Ur Random Creatinine Ur Random Sodium Ur Random Urea Nitrogn Nasal Screen MRSA (PCR) Random Vancomycin 10/26/18 10/26/18 10/26/18 01:30 03:44 05:54 WBC RBC Hgb Hct MCV MCH MCHC RDW Std Deviation RDW Coeff of Elizabeth Plt Count MPV Immature Gran % (Auto) Neut % (Auto) Lymph % (Auto) Greenlee % (Auto) Eos % (Auto) Baso % (Auto) Immature Gran # (Auto) Neut # (Auto) Lymph # (Auto) Greenlee # (Auto) Eos # (Auto) Baso # (Auto) PT INR APTT PTT Ratio ABG pH ABG pCO2 ABG pO2 ABG HCO3 ABG O2 Saturation ABG Base Excess Len Test Barometric Pressure Oxygen Given Sodium Potassium Chloride Carbon Dioxide Anion Gap BUN Creatinine Est Cr Clr Drug Dosing Est GFR ( Amer) Est GFR (Non-Af Amer) BUN/Creatinine Ratio Glucose POC Glucose 296 H 246 H Estimat Average Glucose 217 Hemoglobin A1c 9.2 H Lactate Calcium Magnesium Urine Osmolality Ur Random Creatinine Ur Random Sodium Ur Random Urea Nitrogn Nasal Screen MRSA (PCR) Random Vancomycin 10/26/18 10/26/18 10/26/18 07:10 11:10 11:10 WBC RBC Hgb Hct MCV MCH MCHC RDW Std Deviation RDW Coeff of Elizabeth Plt Count MPV Immature Gran % (Auto) Neut % (Auto) Lymph % (Auto) Greenlee % (Auto) Eos % (Auto) Baso % (Auto) Immature Gran # (Auto) Neut # (Auto) Lymph # (Auto) Greenlee # (Auto) Eos # (Auto) Baso # (Auto) PT INR APTT PTT Ratio ABG pH ABG pCO2 ABG pO2 ABG HCO3 ABG O2 Saturation ABG Base Excess Len Test Barometric Pressure Oxygen Given Sodium Potassium Chloride Carbon Dioxide Anion Gap BUN Creatinine Est Cr Clr Drug Dosing Est GFR ( Amer) Est GFR (Non-Af Amer) BUN/Creatinine Ratio Glucose POC Glucose Estimat Average Glucose Hemoglobin A1c Lactate Calcium Magnesium Urine Osmolality 354 L Ur Random Creatinine 100.0 Ur Random Sodium 33 Ur Random Urea Nitrogn 470 Nasal Screen MRSA (PCR) Random Vancomycin 14.2 10/26/18 10/26/18 10/26/18 11:10 11:10 11:14 WBC RBC Hgb Hct MCV MCH MCHC RDW Std Deviation RDW Coeff of Elizabeth Plt Count MPV Immature Gran % (Auto) Neut % (Auto) Lymph % (Auto) Greenlee % (Auto) Eos % (Auto) Baso % (Auto) Immature Gran # (Auto) Neut # (Auto) Lymph # (Auto) Greenlee # (Auto) Eos # (Auto) Baso # (Auto) PT INR APTT PTT Ratio ABG pH ABG pCO2 ABG pO2 ABG HCO3 ABG O2 Saturation ABG Base Excess Len Test Barometric Pressure Oxygen Given Sodium Potassium Chloride Carbon Dioxide Anion Gap BUN Creatinine Est Cr Clr Drug Dosing Est GFR ( Amer) Est GFR (Non-Af Amer) BUN/Creatinine Ratio Glucose POC Glucose 223 H Estimat Average Glucose Hemoglobin A1c Lactate Calcium Magnesium Urine Osmolality Ur Random Creatinine Ur Random Sodium Cancelled Ur Random Urea Nitrogn Cancelled Nasal Screen MRSA (PCR) Random Vancomycin Diagnostic Findings Blood cultures growing gram-positive cocci 2 bottles Echocardiogram 10/26/2018: Moderate left hypertrophy with dyssynergy septum consistent with left bundle branch block pattern EF 60%. Normally functioning mechanical prosthesis in the aortic valve position. Moderate mitral valve annular calcification. Vegetation is not identified though study not of technical quality to exclude (1) Respiratory failure Chronicity: acute Respiratory failure complication: unspecified whether with hypoxia or hypercapnia Qualified Code(s): J96.00 - Acute respiratory failure, unspecified whether with hypoxia or hypercapnia
[2018-10-26] MEDS ORDERED: DAPTOmycin 575 MG in SYRINGE 0 ML IV SCH (14:30)
[2018-10-26] MEDS ORDERED: SODIUM CHLORIDE 0.9% 1000ML 1,000 ML IV SCH (14:45)
--- NOTE | 2018-10-26 15:27 | Pharmacy Report ---
Glycemic Control Consultation - Date of Service October 26, 2018 - Scope Scope: Glycemic Pharmacist consulted by Duyen Neff on 10/26 for glycemic control and to write orders per [facility] inpatient glycemic control protocol - Objective Weight: 129.1 kg Accuchecks BSG (last 24hrs): 10/25/18 10/25/18 10/25/18 16:19 20:32 23:59 Glucose POC Glucose 269 H 255 H 249 H 10/26/18 10/26/18 10/26/18 01:30 03:44 05:54 Glucose 243 H POC Glucose 296 H 246 H 10/26/18 11:14 Glucose POC Glucose 223 H Laboratory Data (last 24hrs): 10/26/18 01:30 Potassium 4.5 D Carbon Dioxide 30 Anion Gap 4.0 Creatinine 2.74 H D Est Cr Clr Drug Dosing 30.2 HbA1c: Hemoglobin A1c 9.2 % (4.5-5.6) H 10/26/18 01:30 - Recent Pertinent Medications Outpatient Anti-diabetic Regimen: Lantus 20 units BID; Humalog 4 units TIDM * A1c = 9.2 % 10/26 The patient is currently receiving: * Basal insulin: Lantus 20 units every 12 hours * Correctional Insulin: Novolog Correction per scale ACHS Goal Range: Low 120 mg/dL - High 150 mg/dL Correction Factor: 20 mg/dL/unit * Prandial insulin: Per carb ratio of 1 unit per 6 grams CHO consumed Risk Factors for Insulin Resistance: * Steroids: * Infection: * Pressors: * IVF:heparin drip * Recent Surgery * Diet: NPO * Mechanical Ventilation: - Assessment & Plan Assessment & Plan: ASSESSMENT: * Patient is a 78 year old male admitted with bacteremia, possible endocarditis,(recent group B strep endocarditis) patient is currently NPO, on daptomycin/zosyn * Patient's A1c 9.2% indicating poor outpatient control and patient has been hyperglycemic since admission, BSGs ranging 300-223 * Increased home lantus dose this AM and will set scale up to 30 units * Novolog correction factor tightened to 15 starting with lunch BSG(stress of 3 dosing), patient currently NPO carb ratio currently set at 6 * May need to consider starting insulin infusion if BSGs continue to be elevated in the setting of bacteremia PLAN FOR INPATIENT GLYCEMIC CONTROL: * Holding outpatient oral diabetes medications * Basal insulin * Lantus 25 units SQ qAM * Scale for this evening * 20 units BSG <120 * 25 units 120-200 * 30 units >200 * Bolus insulin * NovoLog per scale ACHS or Q6hrs while NPO * Goal Range: Low 120 mg/dL - High 160 mg/dL * Correction Factor: 15 mg/dL/unit * Nutritional / Prandial insulin per carb ratio of 1 unit per 6 grams CHO consumed * Please note that the plan above was derived based on current level of insulin resistance and hospital stress. These recommendations are appropriate for inpatient admission only. Plan of care upon discharge will need to be reassessed to avoid potential outpatient hypo/hyperglycemia. Thank you.
[2018-10-26] MEDS: WARFARIN SOD 5 MG TAB PO SCH (16:37)
[2018-10-26] MEDS: METOPROLOL SUCC 25MG EXT REL TAB PO SCH (19:30)
[2018-10-26] MEDS: DOCUSATE SODIUM 100 MG CAP PO SCH (19:31)
[2018-10-26] MEDS: ASPIRIN 81 MG CHEW PO SCH (19:31)
[2018-10-26] MEDS: Heparin Adult LOW DOSE Wt-Based Dextrose 5% 25,000 units/500 mL IV SCH (19:33)
[2018-10-26] MEDS ORDERED: INSULIN GLARGINE SOLOSTAR 100 UNITS/ML 3 ML PEN SQ ONE (21:00)
[2018-10-26] MEDS ORDERED: INSULIN GLARGINE SOLOSTAR 100 UNITS/ML 3 ML PEN SQ SCH (21:00)
[2018-10-27] MEDS: PIPERACILLIN/TAZOBACTAM 4.5 GM in DEXTROSE 5% 100 ML IV SCH ×2 (02:00→10:18)
[2018-10-27 05:00] LABS: Hematocrit (blood only) 33.8 % (42-52); Hemoglobin 10.7 g/dL (14.0-18.0); Mean Corpuscular Hgb Conc 31.7 g/dL (32-36); Mean Corpuscular Volume 84.9 fL (80-100); Platelet Count 107 K/uL (130-400); RDW Coefficient of Variation 17.3 % (11.5-14.5); Red Blood Count 3.98 M/uL (4.7-6.1); White Blood Count 9.84 K/uL (4.8-10.8)
[2018-10-27 05:24] LABS: BUN Creatinine Ratio 16.4 (10-20); Calcium 7.7 mg/dl (8.5-10.1); Creatinine Clr Calc Pharmacy 28.6 ml/min; Est GFR (African American) 22.8; Est GFR (Non-African American) 19.6; INR 1.8 (0.9-1.1); Partial Thromboplastin Ratio 1.8; Potassium 4.2 mmol/L (3.5-5.1); Prothrombin Time 17.3 Seconds (9.0-12.0)
[2018-10-27 05:33] LABS: Partial Thromboplastin Time 48.1 Seconds (21.0-31.0)
[2018-10-27] MEDS: LEVOTHYROXINE SODIUM 75 MCG TABLET PO SCH (06:29)
[2018-10-27] MEDS: METOPROLOL SUCC 25MG EXT REL TAB PO SCH ×2 (07:47→20:14)
[2018-10-27] MEDS: ASPIRIN 81 MG CHEW PO SCH ×2 (07:48→20:13)
[2018-10-27] MEDS: DOCUSATE SODIUM 100 MG CAP PO SCH ×2 (07:49→20:14)
[2018-10-27] MEDS: INSULIN ASPART 100 UNITS/ML 3 ML PEN SC SCH ×4 (07:50→20:56)
[2018-10-27] MEDS ORDERED: INSULIN GLARGINE SOLOSTAR 100 UNITS/ML 3 ML PEN SC SCH (09:00)
[2018-10-27] MEDS ORDERED: SPIRONOLACTONE 25 MG TAB PO SCH (09:00)
--- NOTE | 2018-10-27 09:39 | Cardiology Progress Note ---
Date of Service October 27, 2018 Assessment & Plan (1) Gram positive sepsis: Patient on broad-spectrum antibiotics for culture determinant pending. Initial echocardiogram demonstrates normally functioning mechanical prosthesis in the aortic valve position, no valvular dysfunction or 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 no visualized vegetations on limited study Concerns still remain regarding possible prosthetic valve endocarditis. Patient would be high risk for valve replacement given morbidities and renal in sufficiency. Mechanical prosthesis remains competent at this time We will plan on TENNILLE on Tuesday (2) Heart failure, diastolic, with acute decompensation: Pulmonary status improved predominately with treating underlying sepsis. Mild volume overload remains present by examination however will continue to require fluid resuscitation for treatment of underlying infection and renal 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, acute No worsening volume overload would continue to hold diuretics Will increase Toprol for heart rate control and mild blood pressure control, resume nitrates if blood pressure remains elevated (3) Acute renal failure superimposed on stage 3 chronic kidney disease: As above (4) Lactic acidosis: Elevated white cell count and presentation suggest sepsis process. Fluid resuscitation to proceed cautiously given volume overload. (5) Cellulitis of right lower extremity: (6) S/P aortic valve replacement: Mechanical prosthesis in place. Continue heparin until INR therapeutic (7) LBBB (left bundle branch block): (8) Chronic atrial fibrillation: Patient in atrial fibrillation persistently since July. As above we will change metoprolol to long-acting format Heart rate and ventricular response rate elevated due to acute illness (9) Respiratory failure: Multifactorial etiology chest x-ray with only mild increased interstitial markings Patient clinically improving as sepsis improves Subjective Patient seen and examined, chart, telemetry reviewed. Patient much brighter and alert today, answering questions appropriately. Blood pressures improved, no fevers or chills Erythema right thigh and leg substantially improved Atrial fibrillation rate slightly higher today Review of Systems Review of Systems: All systems reviewed & are unremarkable except as noted in HPI & below Physical Exam Constitutional: + ill appearing and + obese Eyes: PERRL, conjunctivae normal, anicteric sclerae Neck: trachea midline, no thyromegaly + thick neck Respiratory: Auscultation: + diminished lung sounds; no wheezes Cardiovascular: Rate/Rhythm: + irregularly irregular Heart Sounds: normal S1, normal S2 and + murmur (Grade 2/6 systolic murmur with crisp mechanical valve sound, no diastolic) Vessels: no JVD and no carotid bruit Extremities: + edema (Moderate bilateral edema right greater than left) Gastrointestinal (Abdomen): normal bowel sounds, soft, nontender, no hepatosplenomegaly Skin: Cellulitis and stasis induration changes improved in right thigh and leg Results & Data Vital Signs (Past 12 Hours) Vital Signs Temp Pulse Pulse Resp BP Pulse Ox 10/27/18 07:14 36.9 C 93 H 16 159/96 H 98 10/27/18 04:00 37.1 C 111 H 20 138/92 99 10/27/18 01:00 93 H 20 98 10/26/18 23:02 37.0 C 118 H 16 150/93 H 97 Laboratory Results Laboratory Results - last 24 hr 10/26/18 10/26/18 10/26/18 11:10 11:10 11:10 WBC RBC Hgb Hct MCV MCH MCHC RDW Std Deviation RDW Coeff of Elizabeth Plt Count MPV PT INR APTT PTT Ratio Sodium Potassium Chloride Carbon Dioxide Anion Gap BUN Creatinine Est Cr Clr Drug Dosing Est GFR ( Amer) Est GFR (Non-Af Amer) BUN/Creatinine Ratio Glucose POC Glucose Calcium Urine Osmolality 354 L Ur Random Creatinine 100.0 Ur Random Sodium 33 Cancelled Ur Random Urea Nitrogn 470 10/26/18 10/26/18 10/26/18 11:10 11:14 16:38 WBC RBC Hgb Hct MCV MCH MCHC RDW Std Deviation RDW Coeff of Elizabeth Plt Count MPV PT INR APTT PTT Ratio Sodium Potassium Chloride Carbon Dioxide Anion Gap BUN Creatinine Est Cr Clr Drug Dosing Est GFR ( Amer) Est GFR (Non-Af Amer) BUN/Creatinine Ratio Glucose POC Glucose 223 H 168 H Calcium Urine Osmolality Ur Random Creatinine Ur Random Sodium Ur Random Urea Nitrogn Cancelled 10/26/18 10/27/18 10/27/18 20:32 04:41 04:41 WBC 9.84 RBC 3.98 L Hgb 10.7 L Hct 33.8 L MCV 84.9 MCH 26.9 MCHC 31.7 L RDW Std Deviation 54.0 H RDW Coeff of Elizabeth 17.3 H Plt Count 107 L MPV 11.0 H PT 17.3 H INR 1.8 H APTT 48.1 H* PTT Ratio 1.8 Sodium Potassium Chloride Carbon Dioxide Anion Gap BUN Creatinine Est Cr Clr Drug Dosing Est GFR ( Amer) Est GFR (Non-Af Amer) BUN/Creatinine Ratio Glucose POC Glucose 155 H Calcium Urine Osmolality Ur Random Creatinine Ur Random Sodium Ur Random Urea Nitrogn 10/27/18 10/27/18 04:41 07:16 WBC RBC Hgb Hct MCV MCH MCHC RDW Std Deviation RDW Coeff of Elizabeth Plt Count MPV PT INR APTT PTT Ratio Sodium 140 Potassium 4.2 Chloride 107 Carbon Dioxide 27 Anion Gap 6.0 BUN 48 H Creatinine 2.92 H Est Cr Clr Drug Dosing 28.6 Est GFR ( Amer) 22.8 Est GFR (Non-Af Amer) 19.6 BUN/Creatinine Ratio 16.4 Glucose 151 H POC Glucose 175 H Calcium 7.7 L Urine Osmolality Ur Random Creatinine Ur Random Sodium Ur Random Urea Nitrogn (1) Respiratory failure Chronicity: acute Respiratory failure complication: unspecified whether with hypoxia or hypercapnia Qualified Code(s): J96.00 - Acute respiratory failure, unspecified whether with hypoxia or hypercapnia
[2018-10-27] MEDS ORDERED: METOPROLOL SUCC 25MG EXT REL TAB PO STA (09:41)
--- NOTE | 2018-10-27 10:07 | Hospitalist Progress Note ---
Date of Service October 27, 2018 Assessment & Plan (1) Severe sepsis: (2) Cellulitis of right lower extremity: (3) Bacteremia due to Gram-positive bacteria: Possible related to Cellulitis Blood cx positive for group C beta strep Received one dose of IV vanco that changed to dapto ID on board Continue IV ab with Dapto and Zosyn Will consider to d/c Zosyn Repeat blood cx pending Echo done showed no evidence for vegetation case discussed with cardiology plan for TENNILLE next week since concern still remain regarding possible prosthetic valve endocarditis. Very high risk for valve replacement due to morbidities and renal 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. (4) Acute metabolic encephalopathy: Resolved (5) Heart failure, diastolic, with acute decompensation: CXR showed evidence of mild congestive failure/fluid overload. No evidence of lobar consolidation Received Lasix 60mg IV Will continue to hold diuretic (6) Acute renal failure superimposed on stage 3 chronic kidney disease: Suspect intravascular depletion in the setting of sepsis. Creatinine worsening to 2.9 Continue monitor BMP If creat continue to worsening, will get an renal u/s (7) T2DM (type 2 diabetes mellitus): Hgba1c 9.2 on 10/26/18 Pharmacy on board for glycemic management Continue monitor BS (8) History of endocarditis: Has a mechanical aortic valve present with a h/o endocarditis. Mechanical prosthesis remains competent at this timE as per cardiology Plan for TENNILLE on Tuesday (9) Chronic atrial fibrillation: Rate improves Continue metoprolol Continue heparin drip for now with coumadin Continue monitor in tele monitor (10) Respiratory failure: Continue Bipap at night Stable (11) DVT prophylaxis: Heparin drip until INR therapeutic, coumadin CODE STATUS DNR/DNI Subjective Pt was seen and examined Lying in bed with no distress Pt said that he feels much better today He said that breathing improves Denies any chest pain, palpitation, dizziness and SOB Physical Exam Physical Exam: General- No acute distress Head- atraumatic Eyes- PERRL, EOMI, ENT- oropharynx clear Neck- supple, no JVD Lungs- clear to auscultation Heart- regular rhythm; click sound Abdomen- normal bowel sounds, soft, nontender Extremities- no calf tenderness Neuro- alert, oriented x 3; PERRL, EOMI; no facial palsy; no dysarthria Skin- warm & dry, erythema in RLE improves Results & Data Vital Signs (Past 12 Hours) Vital Signs Temp Pulse Pulse Resp BP Pulse Ox 10/27/18 07:14 36.9 C 93 H 16 159/96 H 98 10/27/18 04:00 37.1 C 111 H 20 138/92 99 10/27/18 01:00 93 H 20 98 10/26/18 23:02 37.0 C 118 H 16 150/93 H 97 (1) Respiratory failure Chronicity: acute Respiratory failure complication: unspecified whether with hypoxia or hypercapnia Qualified Code(s): J96.00 - Acute respiratory failure, unspecified whether with hypoxia or hypercapnia
--- NOTE | 2018-10-27 12:22 | Infectious Disease Progress Nt ---
Date of Service October 27, 2018 Assessment & Plan (1) Gram positive sepsis: will change to ctx and follow repeat cultures, ? skin as source, remain concerned for IE even with negative TTE, await TENNILLE next week, will likely receive prolonged course of IV abx. Subjective pt much more aler today, eating lunch on my exam. states he is feeling much better. denies cp, sob, n/v/d/abd pain. tolerating abx. blood cultures growing pansensitive GCS. echo negative but planning for TENNILLE next week to assess avr. wbc 9, creat 2.9, 8/1 cultures pending. feeling better today. Review of Systems Review of Systems: All systems reviewed & are unremarkable except as noted in HPI & below Physical Exam Constitutional: WD/WN, vitals as above Eyes: PERRL, conjunctivae normal, anicteric sclerae ENMT: external ear and nose normal, oropharynx normal Neck: normal visual inspection Respiratory: normal respiratory effort Auscultation: + diminished lung sounds Cardiovascular: Rate/Rhythm: + irregularly irregular; + abnormal rate and + abnormal rhythm Heart Sounds: + murmur Extremities: no pedal edema and no edema Gastrointestinal (Abdomen): normal bowel sounds, soft, nontender, no hepatosplenomegaly Musculoskeletal: no cyanosis or clubbing, extremities motor strength 5/5 Skin: no rashes, warm and dry Psychiatric: A+Ox3, euthymic affect Results & Data Vital Signs (Past 12 Hours) Vital Signs Temp Pulse Pulse Resp BP Pulse Ox 10/27/18 07:14 36.9 C 93 H 16 159/96 H 98 10/27/18 04:00 37.1 C 111 H 20 138/92 99 10/27/18 01:00 93 H 20 98 Laboratory Results Microbiology 10/25/18 12:00 Blood Aerobic Blood Culture - Preliminary Group C Beta Strep 10/25/18 12:00 Blood Anaerobic Blood Culture - Final 10/25/18 12:10 Blood Aerobic Blood Culture - Final Group C Beta Strep 10/25/18 12:10 Blood Anaerobic Blood Culture - Final Group C Beta Strep PG Care Time/CCT Total # of Minutes Spent Total Time Spent with Patient: Total time spent is greater than 50% in coordination of care (as documented) at patient's floor/unit and/or counseling patient:
[2018-10-27] MEDS: cefTRIAXone SODIUM 2,000 MG in DEXTROSE 5% 50 ML IV SCH (13:26)
--- NOTE | 2018-10-27 15:03 | Pharmacy Report ---
Glycemic Control Progress Note - Date of Service October 27, 2018 - Scope Glycemic Pharmacist consulted for glycemic control to write orders per [facility] inpatient glycemic control protocol. - Objective Accuchecks BSG(last 24 hours):: 10/26/18 10/26/18 10/27/18 16:38 20:32 04:41 Glucose 151 H POC Glucose 168 H 155 H 10/27/18 10/27/18 07:16 11:12 Glucose POC Glucose 175 H 131 H HbA1c:: Hemoglobin A1c 9.2 % (4.5-5.6) H 10/26/18 01:30 - Recent Pertinent Medications The patient is currently receiving: * Basal insulin: Lantus 25 units every 12 hours * Correctional Insulin: Novolog Correction per scale ACHS Goal Range: Low 120 mg/dL - High 160 mg/dL Correction Factor: 15 mg/dL/unit * Prandial insulin: Per carb ratio of 1 unit per 6 grams CHO consumed - Outpatient Anti-Diabetic Meds Lantus 20 units AMHS plus Humalog 4 units TID - Assessment & Plan ASSESSMENT: * See progress note from 10/26/18 for more background info, in short: * Pt receiving SQ basal bolus insulin regimen for hyperglycemia secondary to baseline DM (outpatient regimen on hold) and infection (Gram positive bacteremia on Zosyn and daptomycin) * Patient is currently receiving an average of 68 units of insulin per day * 50 units of basal insulin * 38 units of prandial/correctional insulin * BSGs ranging 155 - 246 mg/dl over the past 24hrs * Changes needed to insulin regimen: * AM Fasting BSG = 175 mg/dl. This is slightly above goal range for patient based on inpatient targets and co-morbidities. The majority of the patient's insulin is basal insulin. This is similar to the patient's home regimen. Still concerned though with this type of distribution. Patient's kidney function is also steadily worsening. Will create a lower scale for this evening with highest dose of 25 units. Please note this is above the patient's home dose; HbA1C indicates poor control. * Post-prandial BSGs trended downwards yesterday. This indicates that correct factor is too aggressive. Loosen for dinner. * Total daily dose = ~75 units. PLAN FOR INPATIENT GLYCEMIC CONTROL: * Decreasing Lantus to 15-25 units SQ BID * Lantus 15 units if blood sugar less than 140 mg/dL * Lantus 20 units if blood sugar 140-180 mg/dL * Lantus 25 units if blood sugar greater than 180 mg/dL * LOOSENING correction factor to 18 mg/dl/unit * Continuing carb ratio of 1 unit per 6 grams CHO consumed * Continuing goal range of Low 120 mg/dL - High 160 mg/dL RECOMMENDATIONS FOR DISCHARGE: Patient's HbA1C indicates poor glycemic control. Will have more inclusive recs once more information is gathered but in general patient most likely requires incase in Humalog. Thank you.
[2018-10-27] MEDS: ISOSORBIDE MONO EXTENDED REL 60 MG TABCR PO SCH (16:04)
[2018-10-27] MEDS: WARFARIN SOD 5 MG TAB PO SCH (16:05)
[2018-10-27] MEDS ORDERED: LABETALOL HCL IV 5 MG/ML 20ML IV PRN (18:51)
[2018-10-27] MEDS: INSULIN GLARGINE SOLOSTAR 100 UNITS/ML 3 ML PEN SC SCH (20:56)
[2018-10-28] MEDS: Heparin Adult LOW DOSE Wt-Based Dextrose 5% 25,000 units/500 mL IV SCH ×2 (02:56→06:38)
[2018-10-28 06:08] LABS: Hematocrit (blood only) 33.2 % (42-52); Hemoglobin 10.8 g/dL (14.0-18.0); Mean Corpuscular Hgb Conc 32.5 g/dL (32-36); Mean Corpuscular Volume 83.2 fL (80-100); Mean Platelet Volume 11.3 fL (7.4-10.4); Platelet Count 122 K/uL (130-400); RDW Coefficient of Variation 17.1 % (11.5-14.5); RDW Standard Deviation 52.2 fL (36.4-46.3); Red Blood Count 3.99 M/uL (4.7-6.1); White Blood Count 7.53 K/uL (4.8-10.8)
[2018-10-28 06:25] LABS: INR 1.7 (0.9-1.1); Prothrombin Time 17.1 Seconds (9.0-12.0)
[2018-10-28] MEDS: LEVOTHYROXINE SODIUM 75 MCG TABLET PO SCH (06:25)
[2018-10-28 06:39] LABS: BUN Creatinine Ratio 19.9 (10-20); Calcium 8.1 mg/dl (8.5-10.1); Creatinine Clr Calc Pharmacy 37.3 ml/min; Est GFR (African American) 31.5; Est GFR (Non-African American) 27.2; Potassium 3.9 mmol/L (3.5-5.1)
[2018-10-28 06:55] LABS: Partial Thromboplastin Ratio 1.6; Partial Thromboplastin Time 44.1 Seconds (21.0-31.0)
[2018-10-28] MEDS ORDERED: HEPARIN IV BOLUS 4,000 UNITS in SYRINGE 0 ML IV ONE (07:20)
[2018-10-28] MEDS: INSULIN ASPART 100 UNITS/ML 3 ML PEN SC SCH ×4 (07:42→21:11)
[2018-10-28] MEDS: INSULIN GLARGINE SOLOSTAR 100 UNITS/ML 3 ML PEN SC SCH ×2 (07:43→21:10)
[2018-10-28] MEDS: DOCUSATE SODIUM 100 MG CAP PO SCH ×2 (07:48→19:43)
[2018-10-28] MEDS: METOPROLOL SUCC 25MG EXT REL TAB PO SCH (08:44)
[2018-10-28] MEDS: ASPIRIN 81 MG CHEW PO SCH ×2 (08:44→19:44)
[2018-10-28] MEDS: ISOSORBIDE MONO EXTENDED REL 60 MG TABCR PO SCH (08:44)
--- NOTE | 2018-10-28 08:56 | Pharmacy Report ---
Glycemic Control Progress Note - Date of Service October 28, 2018 - Scope Glycemic Pharmacist consulted for glycemic control to write orders per [facility] inpatient glycemic control protocol. - Objective Accuchecks BSG(last 24 hours):: 10/27/18 10/27/18 10/27/18 11:12 16:19 20:27 Glucose POC Glucose 131 H 120 H 122 H 10/28/18 10/28/18 05:24 07:29 Glucose 105 H POC Glucose 115 H HbA1c:: Hemoglobin A1c 9.2 % (4.5-5.6) H 10/26/18 01:30 - Recent Pertinent Medications The patient is currently receiving: * Basal insulin: Lantus 15-25 units every 12 hours * Correctional Insulin: Novolog Correction per scale ACHS Goal Range: Low 120 mg/dL - High 160 mg/dL Correction Factor: 18 mg/dL/unit * Prandial insulin: Per carb ratio of 1 unit per 6 grams CHO consumed - Outpatient Anti-Diabetic Meds Lantus 20 units BID plus Humalog 4 units TID - Assessment & Plan ASSESSMENT: * See progress note from 10/26/18 for more background info, in short: * Pt receiving SQ basal bolus insulin regimen for hyperglycemia secondary to baseline DM (outpatient regimen on hold), infection currently on Rocephin, and receiving a heparin infusion. * Patient is currently receiving an average of 63 units of insulin per day * 40 units of basal insulin * 23 units of prandial/correctional insulin * BSGs ranging 120 - 175 mg/dl over the past 24hrs * Changes needed to insulin regimen: * AM Fasting BSG = 115 mg/dl. This is in goal range for patient based on inpatient targets and co-morbidities. This fasting blood sugar is significantly lower that yesterday's fasting of 175 mg/dL. As mentioned before, the patient's insulin regimen is very basal heavy. Working to titrate towards a more evenly split regimen. Reduce scale for today. * Post-prandial BSGs are in range therefore no changes needed to CF/CR. * Total daily dose = 60 units. Working to redistribute regimen. PLAN FOR INPATIENT GLYCEMIC CONTROL: * Decreasing Lantus to 15 units SQ BID (20 units if blood sugar 140 mg/dL or greater) * Continuing correction factor of 18 mg/dl/unit * Continuing carb ratio of 1 unit per 6 grams CHO consumed * Continuing goal range of Low 120 mg/dL - High 160 mg/dL RECOMMENDATIONS FOR DISCHARGE: * Please see note from 10/27/18. May be reasonable to consider Lantus 20 units BID plus Humalog 7 units thrice daily with meals. * Please note that the plan above was derived based on current level of insulin resistance and hospital stress. These recommendations are appropriate for inpatient admission only. Plan of care upon discharge will need to be reassessed to avoid potential outpatient hypo/hyperglycemia. Thank you.
--- NOTE | 2018-10-28 11:44 | Cardiology Progress Note ---
Date of Service October 28, 2018 Assessment & Plan (1) Gram positive sepsis: Blood culture revealing pansensitive group C beta Streptococcus. Continue ceftriaxone. Initial echocardiogram demonstrates normally functioning mechanical prosthesis in the aortic valve position, no valvular dysfunction or 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 no visualized vegetations on limited study Concerns still remain regarding possible prosthetic valve endocarditis. Patient would be high risk for valve replacement given morbidities and renal 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. Mechanical prosthesis remains competent at this time. Schedule transesophageal echocardiogram Tuesday. Patient will be made n.p.o. except medications after midnight 10/29/2018. (2) Heart failure, diastolic, with acute decompensation: Pulmonary status improving with hydration. Continue to hold diuretic therapy today. Repeat basic metabolic panel in a.m. Tentative plan to restart diuretic therapy in the next 24 to 48 hours. (3) Acute renal failure superimposed on stage 3 chronic kidney disease: Creatinine trending downward. Continue to hold diuretic therapy. (4) Cellulitis of right lower extremity: (5) S/P aortic valve replacement: Mechanical prosthesis in place. Continue heparin until INR therapeutic (6) LBBB (left bundle branch block): (7) Chronic atrial fibrillation: Patient in atrial fibrillation persistently since July. Heart rate improving with addition of Toprol-XL. Outpatient dose of metoprolol 37.5 mill grams twice daily. Increase Toprol-XL to 50 mg in the a.m., 25mg in the evening. Subjective Patient seen and examined the bedside. Heart rate improving on telemetry with addition of Toprol-XL. Average heart rate 90 to 95 bpm. Patient denies palpitations. No chest discomfort or unusual shortness of breath. Denies subjective fever or chills overnight. No orthopnea or PND. Right lower extremity erythema improving. Tolerating diet medications. Offers no other concerns/complaints at this time. Review of Systems Review of Systems: All systems reviewed & are unremarkable except as noted in HPI & below Physical Exam Physical Exam: General: NAD, AAO x3, well nourished. Obese. HEENT: Normocephalic. Atraumatic. Conjunctiva pink, no scleral icterus. Neck: No carotid bruits, the carotid upstrokes are brisk. No JVD. No HJR Heart: Irregular rhythm, tachycardic. 2/6 systolic ejection murmur heard best at the right second intercostal space. Lungs: Clear bilateral without rales , rhonchi, or wheeze. Abdomen: Normal bowel sounds. Soft. Nontender. No masses or organomegaly. No abdominal bruits. Extremities: Right lower extremity erythema. Trace edema. Pulses: radial=2/4, Dorsalis pedis =2/4, posterior tibial=2/4. Neuro: Cranial nerves grossly intact. No focal motor deficit. Results & Data Vital Signs (Past 12 Hours) Vital Signs Temp Pulse Resp BP Pulse Ox 10/28/18 07:33 36.9 C 101 H 22 143/84 H 93 10/28/18 03:10 36.8 C 94 H 20 113/76 98 Laboratory Results Laboratory Results - last 24 hr 10/27/18 10/27/18 10/27/18 11:12 16:19 20:27 WBC RBC Hgb Hct MCV MCH MCHC RDW Std Deviation RDW Coeff of Elizabeth Plt Count MPV PT INR APTT PTT Ratio Sodium Potassium Chloride Carbon Dioxide Anion Gap BUN Creatinine Est Cr Clr Drug Dosing Est GFR ( Amer) Est GFR (Non-Af Amer) BUN/Creatinine Ratio Glucose POC Glucose 131 H 120 H 122 H Calcium 10/28/18 10/28/18 10/28/18 05:24 05:24 05:24 WBC 7.53 RBC 3.99 L Hgb 10.8 L Hct 33.2 L MCV 83.2 MCH 27.1 MCHC 32.5 RDW Std Deviation 52.2 H RDW Coeff of Elizabeth 17.1 H Plt Count 122 L MPV 11.3 H PT 17.1 H INR 1.7 H APTT PTT Ratio Sodium 141 Potassium 3.9 Chloride 109 H Carbon Dioxide 28 Anion Gap 4.0 BUN 44 H Creatinine 2.23 H D Est Cr Clr Drug Dosing 37.3 Est GFR ( Amer) 31.5 Est GFR (Non-Af Amer) 27.2 BUN/Creatinine Ratio 19.9 Glucose 105 H POC Glucose Calcium 8.1 L 10/28/18 10/28/18 05:24 07:29 WBC RBC Hgb Hct MCV MCH MCHC RDW Std Deviation RDW Coeff of Elizabeth Plt Count MPV PT INR APTT 44.1 H PTT Ratio 1.6 Sodium Potassium Chloride Carbon Dioxide Anion Gap BUN Creatinine Est Cr Clr Drug Dosing Est GFR ( Amer) Est GFR (Non-Af Amer) BUN/Creatinine Ratio Glucose POC Glucose 115 H Calcium
[2018-10-28] MEDS: cefTRIAXone SODIUM 2,000 MG in DEXTROSE 5% 50 ML IV SCH (12:17)
[2018-10-28 14:34] LABS: Partial Thromboplastin Time 54.4 Seconds (21.0-31.0)
[2018-10-28] MEDS: WARFARIN SOD 2.5 MG TAB PO SCH (16:21)
[2018-10-28] MEDS ORDERED: LABETALOL HCL IV 5 MG/ML 20ML IV STA (16:30)
--- NOTE | 2018-10-28 18:04 | Hospitalist Progress Note ---
Date of Service October 28, 2018 Assessment & Plan (1) Severe sepsis: (2) Cellulitis of right lower extremity: Possible related to Cellulitis Blood cx positive for group C beta strep Received one dose of IV vanco that changed to dapto ID on board Abx Will consider to d/c Zosyn Echo done showed no evidence for vegetation case discussed with cardiology plan for [place] next week since concern still remain regarding possible prosthetic valve endocarditis. Very high risk for valve replacement given morbidities and renal 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. (3) Bacteremia due to Gram-positive bacteria: Possible related to Cellulitis Blood cx positive for group C beta strep Received one dose of IV vanco that changed to dapto ID on board Abx changed to IV Rocephin Repeat blood cx no growth Echo done showed no evidence for vegetation Plan for [place] on Tuesday since concern still remain regarding possible prosthetic valve endocarditis. Very high risk for valve replacement due to morbidities and renal 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. (4) Acute metabolic encephalopathy: Resolved (5) Heart failure, diastolic, with acute decompensation: CXR showed evidence of mild congestive failure/fluid overload. No evidence of lobar consolidation Received Lasix 60mg IV Continue to hold diuretic for now due to worsening renal function (6) Acute renal failure superimposed on stage 3 chronic kidney disease: Suspect intravascular depletion in the setting of sepsis. Creatinine improved today from 2.9 to 2.2 Continue monitor BMP Continue holding diuretic Avoid nephrotoxic agents (7) T2DM (type 2 diabetes mellitus): Hgba1c 9.2 on 10/26/18 Pharmacy on board for glycemic management Continue monitor BS (8) History of endocarditis: Has a mechanical aortic valve present with a h/o endocarditis. Mechanical prosthesis remains competent at this timE as per cardiology Plan for [place] on Tuesday (9) Chronic atrial fibrillation: Rate improves Continue metoprolol Continue heparin drip for now with coumadin , INR 1.7 Continue monitor in tele monitor (10) Respiratory failure: Continue Bipap at night Stable (11) DVT prophylaxis: Heparin drip until INR therapeutic, coumadin CODE STATUS DNR/DNI Disposition Plan for [place] on Tuesday Subjective Pt was seen and examined Lying in bed with no distress Pt said that he feels fine Denies any chest pain, palpitation, dizziness and SOB Physical Exam Physical Exam: General- No acute distress Head- atraumatic Eyes- PERRL, EOMI, ENT- oropharynx clear Neck- supple, no JVD Lungs- clear to auscultation Heart- regular rhythm; click sound Abdomen- normal bowel sounds, soft, nontender Extremities- no calf tenderness Neuro- alert, oriented x 3; PERRL, EOMI; no facial palsy; no dysarthria Skin- warm & dry, erythema in RLE improves Results & Data Vital Signs (Past 12 Hours) Vital Signs Temp Pulse Resp BP Pulse Ox 10/28/18 15:16 37.0 C 105 H 21 183/112 H 93 10/28/18 12:00 37.0 C 95 H 20 159/89 H 94 10/28/18 07:33 36.9 C 101 H 22 143/84 H 93 (1) Respiratory failure Chronicity: acute Respiratory failure complication: unspecified whether with hypoxia or hypercapnia Qualified Code(s): J96.00 - Acute respiratory failure, unspecified whether with hypoxia or hypercapnia
[2018-10-28] MEDS ORDERED: METOPROLOL SUCC 25MG EXT REL TAB PO SCH (21:00)
[2018-10-28] MEDS ORDERED: METOPROLOL SUCC 25MG EXT REL TAB PO STA (23:45)
[2018-10-29] MEDS: LEVOTHYROXINE SODIUM 75 MCG TABLET PO SCH (06:24)
[2018-10-29] MEDS: Heparin Adult LOW DOSE Wt-Based Dextrose 5% 25,000 units/500 mL IV SCH (06:30)
[2018-10-29 07:05] LABS: INR 2.4 (0.9-1.1); Partial Thromboplastin Ratio 1.8; Prothrombin Time 23.1 Seconds (9.0-12.0)
[2018-10-29 07:09] LABS: Calcium 8.7 mg/dl (8.5-10.1); Creatinine Clr Calc Pharmacy 44.5 ml/min; Est GFR (African American) 40.1; Est GFR (Non-African American) 34.6; Potassium 4.1 mmol/L (3.5-5.1)
[2018-10-29 07:14] LABS: Partial Thromboplastin Time 48.4 Seconds (21.0-31.0)
[2018-10-29] MEDS: ASPIRIN 81 MG CHEW PO SCH ×2 (08:22→21:07)
[2018-10-29] MEDS: DOCUSATE SODIUM 100 MG CAP PO SCH ×2 (08:23→21:07)
[2018-10-29] MEDS: ISOSORBIDE MONO EXTENDED REL 60 MG TABCR PO SCH (08:23)
[2018-10-29] MEDS: INSULIN GLARGINE SOLOSTAR 100 UNITS/ML 3 ML PEN SC SCH ×2 (08:24→21:40)
[2018-10-29] MEDS: METOPROLOL SUCC 50MG EXT REL TAB PO SCH ×2 (08:24→21:40)
[2018-10-29] MEDS: INSULIN ASPART 100 UNITS/ML 3 ML PEN SC SCH ×4 (08:26→21:40)
[2018-10-29] MEDS ORDERED: METOPROLOL SUCC 50MG EXT REL TAB PO SCH (09:00)
--- NOTE | 2018-10-29 10:35 | Cardiology Progress Note ---
Date of Service October 29, 2018 Assessment & Plan (1) Gram positive sepsis: Blood culture revealing pansensitive group C beta Streptococcus. Continue ceftriaxone. Initial echocardiogram demonstrates normally functioning mechanical prosthesis in the aortic valve position, no valvular dysfunction or 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 no visualized vegetations on limited study Concerns still remain regarding possible prosthetic valve endocarditis. Patient would be high risk for valve replacement given morbidities and renal 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. Mechanical prosthesis remains competent at this time. Transesophageal echocardiogram scheduled in a.m. 10/30/2018. N.p.o. except medications after midnight. (2) Heart failure, diastolic, with acute decompensation: Restart diuretic therapy today. Repeat basic metabolic panel in a.m. (3) Acute renal failure superimposed on stage 3 chronic kidney disease: Creatinine trending downward. (4) Cellulitis of right lower extremity: (5) S/P aortic valve replacement: Mechanical prosthesis in place. Discontinue IV heparin today. Continue Coumadin. (6) LBBB (left bundle branch block): (7) Chronic atrial fibrillation: Patient in atrial fibrillation persistently since July. Heart rate improving with addition of Toprol-XL. Dose increased today to 50 mg in the a.m., 25 mg in the evening. Subjective Patient seen and examined at the bedside. Resting comfortably. No recurrent fever or subjective chills overnight. Average heart rate approximately 95 bpm on telemetry. Patient denies chest pain or unusual shortness of breath. Tolerating diet medications. INR 2.4 today. Diuretic therapy remains on hold. Creatinine trending downward. Review of Systems Review of Systems: All systems reviewed & are unremarkable except as noted in HPI & below Physical Exam Physical Exam: General: NAD, AAO x3, well nourished. Obese. HEENT: Normocephalic. Atraumatic. Conjunctiva pink, no scleral icterus. Neck: No carotid bruits, the carotid upstrokes are brisk. No JVD. No HJR Heart: Irregular rhythm, tachycardic. 2/6 systolic ejection murmur heard best at the right second intercostal space. +crisp A2 click heard best at the right second intercostal space. lungs: Clear bilateral without rales , rhonchi, or wheeze. Abdomen: Normal bowel sounds. Soft. Nontender. No masses or organomegaly. No abdominal bruits. Extremities: Right lower extremity erythema. Trace edema. Pulses: radial=2/4, Dorsalis pedis =2/4, posterior tibial=2/4. Neuro: Cranial nerves grossly intact. No focal motor deficit. Results & Data Vital Signs (Past 12 Hours) Vital Signs Temp Pulse Resp BP Pulse Ox 10/29/18 07:00 37.1 C 77 18 158/97 H 91 10/29/18 03:18 36.7 C 97 H 18 165/110 H 97 10/28/18 23:26 36.9 C 98 H 20 179/93 H 92 Laboratory Results Laboratory Results - last 24 hr 10/28/18 10/28/18 10/28/18 11:41 13:36 15:49 PT INR APTT 54.4 H* PTT Ratio 2.0 Sodium Potassium Chloride Carbon Dioxide Anion Gap BUN Creatinine Est Cr Clr Drug Dosing Est GFR ( Amer) Est GFR (Non-Af Amer) BUN/Creatinine Ratio Glucose POC Glucose 149 H 141 H Calcium 10/28/18 10/29/18 10/29/18 20:52 06:26 06:26 PT 23.1 H INR 2.4 H APTT 48.4 H* PTT Ratio 1.8 Sodium 141 Potassium 4.1 Chloride 109 H Carbon Dioxide 27 Anion Gap 5.0 BUN 35 H Creatinine 1.83 H D Est Cr Clr Drug Dosing 44.5 Est GFR ( Amer) 40.1 Est GFR (Non-Af Amer) 34.6 BUN/Creatinine Ratio 19.0 Glucose 103 H POC Glucose 162 H Calcium 8.7 10/29/18 07:28 PT INR APTT PTT Ratio Sodium Potassium Chloride Carbon Dioxide Anion Gap BUN Creatinine Est Cr Clr Drug Dosing Est GFR ( Amer) Est GFR (Non-Af Amer) BUN/Creatinine Ratio Glucose POC Glucose 109 H Calcium
--- NOTE | 2018-10-29 12:41 | Anesthesiology Consultation ---
Date of Service October 29, 2018 Assessment & Plan (1) Encounter for pre-operative examination: Chart Review Chart Review: Acceptable Risk for Surgery and Patient NOT seen in Pre Admission Testing Consults Requested none Proposed Anesthesia Risk / Benefits Reviewed With: PT / POA / Parent / Guardian, Accepts Plan and Informed Consent Obtained History Height/Weight Height: 5 ft 11 in Weight: 123.4 kg Allergies Allergy/AdvReac Type Severity Reaction Status Date / Time No Known Allergies Allergy Unverified 10/25/18 14:08 Medications Home Medications Medication Instructions Recorded Confirmed Last Taken atorvastatin 40 mg PO QAM 02/23/18 10/25/18 07/10/18 docusate sodium 100 mg PO AMHS 02/23/18 10/25/18 07/10/18 folic acid 1 mg PO QAM 02/23/18 10/25/18 07/10/18 isosorbide mononitrate 90 mg PO QAM 02/23/18 10/25/18 07/10/18 lisinopril 40 mg PO QAM 02/23/18 10/25/18 07/10/18 nitroglycerin 0.4 mg SUBLINGUAL DIRECTED PRN 02/23/18 10/25/18 Unknown terazosin 2 mg PO HS 02/24/18 10/25/18 07/09/18 aspirin [Aspirin Childrens] 0.5 tab PO AMHS 07/10/18 10/25/18 07/10/18 insulin glargine [Lantus Solostar 20 units SQ AMHS 07/10/18 10/25/18 07/10/18 08:00 U-100 Insulin] ferrous sulfate 325 mg PO QAM 10/25/18 10/25/18 Unknown furosemide 80 mg PO BID 10/25/18 10/25/18 Unknown insulin lispro [Humalog KwikPen 4 unit SUBCUT TID 10/25/18 10/25/18 Unknown Insulin] levothyroxine [Synthroid] 75 mcg PO QAM 10/25/18 10/25/18 Unknown metoprolol tartrate 37.5 mg PO AMHS 10/25/18 10/25/18 Unknown spironolactone 12.5 mg PO QAM 10/25/18 10/25/18 Unknown warfarin 2.5 mg PO DAILY 10/25/18 10/25/18 Unknown Active Medications Generic Name Dose Route Start Last Admin Trade Name Freq PRN Reason Stop Dose Admin Aspirin 40.5 mg 10/26/18 21:00 10/29/18 08:22 Aspirin Chew PO 11/25/18 20:59 40.5 mg AMHS JOYCE Administration Docusate Sodium 100 mg 10/26/18 21:00 10/29/18 08:23 Colace PO 11/25/18 20:59 100 mg AMHS JOYCE Administration Ceftriaxone Sodium 2,000 mg/ 70 mls @ 100 mls/hr 10/27/18 13:00 10/28/18 13:08 Dextrose IV 11/10/18 12:59 Infused DAILY@1300 JOYCE Infusion Insulin Aspart 0 units 10/26/18 16:30 10/29/18 08:26 Novolog Flexpen SC 11/25/18 16:29 7 units ACHS JOYCE Administration Insulin Glargine 0 units 10/27/18 21:00 10/29/18 08:24 Lantus Solostar Pen SC 11/26/18 20:59 15 units BID JOYCE Administration Protocol Isosorbide Mononitrate 60 mg 10/27/18 14:45 10/29/18 08:23 Imdur Extended Rel PO 11/26/18 14:44 60 mg QAM JOYCE Administration Labetalol HCl 10 mg 10/27/18 18:51 10/28/18 16:21 Normodyne IV 11/26/18 18:50 10 mg ONE PRN Administration sbp above 170 Levothyroxine Sodium 75 mcg 10/27/18 06:30 10/29/18 06:24 Synthroid PO 11/26/18 06:29 75 mcg DAILYBB JOYCE Administration Metoprolol Succinate 50 mg 10/29/18 09:00 10/29/18 08:24 Toprol Xl PO 11/28/18 08:59 50 mg BID JOYCE Administration Warfarin Sodium 2.5 mg 10/28/18 16:00 10/28/18 16:21 Coumadin PO 11/27/18 15:59 2.5 mg DAILY@1600 JOYCE Administration Past Medical History Medical History Coronary artery disease (Chronic) T2DM (type 2 diabetes mellitus) (Chronic) HTN (hypertension) (Chronic) History of endocarditis (Chronic) 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 weeks 05/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 LBBB (left bundle branch block) (Chronic) PVD (peripheral vascular disease) (Chronic) 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 (Chronic) shelter current use of anticoagulant (Chronic) INR goal 2-3 Chronic atrial fibrillation (Chronic) Cerebrovascular disease (Chronic) Chronic diastolic heart failure (Chronic) ASCVD (arteriosclerotic cardiovascular disease) (Chronic) Septicemia due to group B Streptococcus (Resolved) Hypothyroidism (Chronic) Hyperlipidemia (Chronic) PAF (paroxysmal atrial fibrillation) (Chronic) Diabetes type 2, uncontrolled (Chronic) Exercise / Class Metabolic Activity III < 4 Walking/Shop/Light housework Past Family History Family History Other Unknown family medical history Past Surgical History Surgical History History of cardiac catheterization (Chronic) Nonobstructive CAD S/P aortic valve replacement (Chronic) Past Anesthesia History No Hx of Anesthesia Complications and No Family Hx of Anesthesia Complications History of PONV No Hx of PONV and No Hx of Motion Sickness Social History Smoking Status: Never smoker tobacco type: cigars Smoking cigarettes per day: 1 cigar per day Hx Alcohol Use: No Alcohol type: beer alcohol intake frequency: holidays/special occasions only Hx Substance Use: No Physical Exam Vital Signs Last Vital Signs Temp 36.8 C 10/29/18 11:24 Pulse 104 H 10/29/18 11:24 Resp 22 10/29/18 11:24 BP 169/105 H 10/29/18 11:24 Pulse Ox 94 10/29/18 11:24 Constitutional + obese ENMT Mouth: + dentures (full) Thyromental Distance: > or= 3.5 Finger Breadths Mallampati Class: II Neck normal visual inspection Respiratory normal respiratory effort Auscultation: lungs clear to auscultation bilaterally Cardiovascular Rate/Rhythm: regular rate; + abnormal rhythm (irregularly irregular) Musculoskeletal Extremities: extremities normal to inspection (2+ pitting edema BLEs (improved, per patient)) Psychiatric Orientation: alert Testing Laboratory Results 10/28/18 05:24 10/29/18 06:26 PT 23.1 Seconds (9.0-12.0) H 10/29/18 06:26 INR 2.4 (0.9-1.1) H 10/29/18 06:26 APTT 48.4 Seconds (21.0-31.0) H* 10/29/18 06:26 Hemoglobin A1c 9.2 % (4.5-5.6) H 10/26/18 01:30 Urine Color Yellow 10/25/18 12:30 Urine Appearance Clear (Clear) 10/25/18 12:30 Urine pH 5.0 (4.5-7.5) 10/25/18 12:30 Ur Specific [place] 1.019 (1.000-1.030) 10/25/18 12:30 Urine Protein Negative (Negative) 10/25/18 12:30 Urine Glucose (UA) 2+ (Negative) H 10/25/18 12:30 Urine Ketones Negative (Negative) 10/25/18 12:30 Urine Nitrite Negative (Negative) 10/25/18 12:30 Ur Leukocyte Esterase Negative (Negative) 10/25/18 12:30 Urine WBC (Auto) 1-5 /hpf (0-5) 10/25/18 12:30 Urine RBC (Auto) 0-4 /hpf (0-4) 10/25/18 12:30 U Hyaline Cast (Auto) 1-5 /lpf (0-5) 10/25/18 12:30 U Epithel Cells (Auto) 5-10 /lpf (0-5) H 10/25/18 12:30 Urine Bacteria (Auto) Negative (Negative) 10/25/18 12:30 10/26/18 15:04 Aerobic Blood Culture - Preliminary Blood No growth in Aerobic bottle after 48 hours. Anaerobic Blood Culture - Preliminary No growth in Anaerobic bottle after 48 hours. 10/26/18 14:49 Aerobic Blood Culture - Preliminary Blood No growth in Aerobic bottle after 48 hours. Anaerobic Blood Culture - Preliminary No growth in Anaerobic bottle after 48 hours. 10/25/18 12:00 Aerobic Blood Culture - Final Blood Group C Beta Strep Anaerobic Blood Culture - Final 10/25/18 12:10 Aerobic Blood Culture - Final Blood Group C Beta Strep Anaerobic Blood Culture - Final Group C Beta Strep 10/29/18 10/29/18 11:25 07:28 POC Glucose 198 H 109 H Electrocardiogram Date: 10/26/18 Findings: + AFIB @ (109) and + LBBB Chest X-Ray Date: 10/25/18 Findings: + cardiomegaly and + pulmonary vascular congestion (mild) Echocardiogram Date: 10/27/18 EF: 60 LV Function: dysfunctional (diastolic dysfunction, conduction delay) Valvular Disease: + pertinent finding (well seated mechanical AVR with normal gradient)
[2018-10-29] MEDS: cefTRIAXone SODIUM 2,000 MG in DEXTROSE 5% 50 ML IV SCH (13:05)
--- NOTE | 2018-10-29 15:38 | Hospitalist Progress Note ---
Date of Service October 29, 2018 Assessment & Plan (1) Severe sepsis: (2) Cellulitis of right lower extremity: Possible related to Cellulitis Blood cx positive for group C beta strep Received one dose of IV vanco and Zosyn that changed to dapto, then Rocephin ID on board, Will continue Rocephin IV for now Echo done showed no evidence for vegetation case discussed with cardiology plan for TENNILLE in am since concern still remain regarding possible prosthetic valve endocarditis. Very high risk for valve replacement given morbidities and renal 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. (3) Bacteremia due to Gram-positive bacteria: Possible related to Cellulitis Blood cx positive for group C beta strep Received one dose of IV vanco that changed to dapto ID on board Abx changed to IV Rocephin Repeat blood cx no growth Echo done showed no evidence for vegetation Plan for TENNILLE on Tuesday since concern still remain regarding possible prosthetic valve endocarditis. Very high risk for valve replacement due to morbidities and renal 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. Will make NPO after midnight (4) Acute metabolic encephalopathy: Resolved (5) Heart failure, diastolic, with acute decompensation: CXR showed evidence of mild congestive failure/fluid overload. No evidence of lobar consolidation Received Lasix 60mg IV on admssion Continue to hold diuretic for now due to worsening renal function Monitor closely (6) Acute renal failure superimposed on stage 3 chronic kidney disease: Suspect intravascular depletion in the setting of sepsis. 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 Mechanical prosthesis remains competent at this time as per cardiology Plan for TENNILLE on Tuesday (9) Chronic atrial fibrillation: Rate improves Continue metoprolol Heparin drip discontinued Continue coumadin , INR 2.4 today Continue monitor in tele monitor (10) Respiratory failure: Acute respiratory failure with hypoxia Continue Bipap at night Continue oxygen supplement Stable (11) DVT prophylaxis: coumadin with INR 2.4 today CODE STATUS DNR/DNI Disposition Plan for TENNILLE Tomorrow Subjective Pt was seen and examined Lying in bed with no distress Pt said that he feels fine Denies any chest pain, palpitation, dizziness and SOB Physical Exam Physical Exam: General- No acute distress Head- atraumatic Eyes- PERRL, EOMI, ENT- oropharynx clear Neck- supple, no JVD Lungs- clear to auscultation Heart- regular rhythm; click sound Abdomen- normal bowel sounds, soft, nontender Extremities- no calf tenderness Neuro- alert, oriented x 3; PERRL, EOMI; no facial palsy; no dysarthria Skin- warm & dry, erythema in RLE improves Results & Data Vital Signs (Past 12 Hours) Vital Signs Temp Pulse Resp BP Pulse Ox 10/29/18 15:25 36.8 C 100 H 18 174/82 H 93 10/29/18 11:24 36.8 C 104 H 22 169/105 H 94 10/29/18 07:00 37.1 C 77 18 158/97 H 91 (1) Respiratory failure Chronicity: acute Respiratory failure complication: unspecified whether with hypoxia or hypercapnia Qualified Code(s): J96.00 - Acute respiratory failure, unspecified whether with hypoxia or hypercapnia
[2018-10-29] MEDS: WARFARIN SOD 2.5 MG TAB PO SCH (17:04)
[2018-10-29] MEDS: FUROSEMIDE 80 MG TAB PO SCH (17:05)
[2018-10-29] MEDS ORDERED: INSULIN GLARGINE SOLOSTAR 100 UNITS/ML 3 ML PEN SC ONE (21:30)
[2018-10-30] MEDS: LEVOTHYROXINE SODIUM 75 MCG TABLET PO SCH (06:04)
[2018-10-30 06:37] LABS: INR 3.2 (0.9-1.1); Prothrombin Time 30.1 Seconds (9.0-12.0)
[2018-10-30 07:01] LABS: BUN Creatinine Ratio 18.1 (10-20); Calcium 8.4 mg/dl (8.5-10.1); Est GFR (African American) 41.7; Potassium 4.2 mmol/L (3.5-5.1)
[2018-10-30] MEDS ORDERED: LIDOCAINE HCL 2% MPF (LOCAL) 5 ML VIAL INFIL ONE (07:33)
[2018-10-30] MEDS ORDERED: PROPOFOL IV EMULSION 10 MG/ML 20 ML VIAL IV ONE (07:33)
[2018-10-30] MEDS ORDERED: ePHEDrine sulfate 50 MG/ML AMP ONE (07:40)
[2018-10-30] MEDS ORDERED: PHENYLEPHRINE HCL 10 MG/ML VIAL ONE (07:40)
[2018-10-30] MEDS ORDERED: SODIUM CHLORIDE 0.9% INJ 10 ML VIAL ONE (07:40)
--- NOTE | 2018-10-30 08:54 | Anesthesiology Progress Note ---
Date of Service October 30, 2018 Anesthesia Post Procedure Vital Signs Vital Signs: Temp Pulse Resp BP Pulse Ox 10/30/18 08:40 37.0 C 89 18 155/84 H 94 10/30/18 07:24 36.8 C 92 H 22 152/95 H 92 10/30/18 03:56 37.0 C 98 H 19 157/80 H 92 10/29/18 23:19 36.7 C 100 H 18 149/91 H 91 10/29/18 19:33 36.8 C 93 H 19 147/100 H 92 10/29/18 15:25 36.8 C 100 H 18 174/82 H 93 10/29/18 11:24 36.8 C 104 H 22 169/105 H 94 Transfer of Care Handoff Completed per policy Notes Mental Status: alert / awake / arousable and participated in evaluation Patient Amnestic to Procedure: Yes Nausea / Vomiting: adequately controlled Pain: adequately controlled Airway Patency, RR, SpO2: stable & adequate BP & HR: stable & adequate Hydration State: stable & adequate Anesthetic Complications: no major complications apparent and Pt Satisfied with anesthetic care
[2018-10-30] MEDS ORDERED: INSULIN GLARGINE SOLOSTAR 100 UNITS/ML 3 ML PEN SC SCH ×3 (09:00→21:00)
--- NOTE | 2018-10-30 09:26 | Pharmacy Report ---
Glycemic Control Progress Note - Date of Service October 30, 2018 - Scope Glycemic Pharmacist consulted for glycemic control to write orders per [facility] inpatient glycemic control protocol. - Objective Accuchecks BSG(last 24 hours):: 10/29/18 10/29/18 10/29/18 11:25 16:12 20:30 Glucose POC Glucose 198 H 159 H 128 H 10/30/18 10/30/18 06:15 07:22 Glucose 118 H POC Glucose 136 H HbA1c:: Hemoglobin A1c 9.2 % (4.5-5.6) H 10/26/18 01:30 - Recent Pertinent Medications The patient is currently receiving: * Basal insulin: Lantus 15-20 units every 12 hours * Correctional Insulin: Novolog Correction per scale ACHS Goal Range: Low 120 mg/dL - High 160 mg/dL Correction Factor: 18 mg/dL/unit * Prandial insulin: Per carb ratio of 1 unit per 6 grams CHO consumed - Outpatient Anti-Diabetic Meds Lantus 20 units BID plus Humalog 4 units TIDM - Assessment & Plan ASSESSMENT: * See progress note from 10/26/18 for more background info, in short: * Pt receiving SQ basal bolus insulin regimen for hyperglycemia secondary to baseline DM (outpatient regimen on hold),stress/infection (bacteremia on Rocephin). Currently NPO for TENNILLE. * Patient is currently receiving an average of 37 units of insulin per day * 15 units of basal insulin * 22 units of prandial/correctional insulin * BSGs ranging 109 - 198 mg/dl over the past 24hrs * Changes needed to insulin regimen: * AM Fasting BSG = 14/ mg/dl. This is in goal range for patient based on inpatient targets and co-morbidities. The patient only received 15 units of basal insulin yesterday since he is now NPO today. The patient's fasting blood sugars continue to trend downwards each day. It appears that 35 units is too much basal insulin. Expect patient most likely requires around 20 units daily. Plan for 12 units today since NPO. Then add a scale for this evening. Increase dose to 15 units daily tomorrow morning. * Post-prandial BSGs are in range but blood sugars in general have been trending downwards. Loosen slightly. * Total daily dose = ~50 units. PLAN FOR INPATIENT GLYCEMIC CONTROL: * Decreasing Lantus to 12 units SQ x 1 then a scale for this evening of 0-10 units. Increase back to 15 units tomorrow. * LOOSENING correction factor to 20 mg/dl/unit * LOOSENING carb ratio to 1 unit per 7 grams CHO consumed * Continuing goal range of Low 120 mg/dL - High 160 mg/dL RECOMMENDATIONS FOR DISCHARGE: * see note from 10/27/18 * Please note that the plan above was derived based on current level of insulin resistance and hospital stress. These recommendations are appropriate for inpatient admission only. Plan of care upon discharge will need to be reassessed to avoid potential outpatient hypo/hyperglycemia. Thank you.
--- NOTE | 2018-10-30 10:06 | Operative Report ---
Post Operative Report Pre & Post Diagnosis Operation Date: 10/30/18 07:45 <No data on this case meets the specified criteria> Procedure Operation Date: 10/30/18 07:45 Actual Procedures p Transesophageal Echo w/Anesthesia - Miki Ballard DO Surgeon Miki Ballard, Oxygen Equipment Technician none Estimated Blood Loss 0 Findings Consistent with Post-Op Diagnosis Specimens none Description of Procedure informed consent obtained pt prepped sedation as per anesthesia no vegetation visualized on mechanical AVR no obvious lesion present on mitral valve however, thickened leaflets, will compare with previous studies pt tolerate well recovery per protocol start time: 801 stop time: 814 I attest to the content of the Intraoperative Record and any orders documented therein. Any exceptions are noted below.
--- NOTE | 2018-10-30 10:59 | Infectious Disease Progress Nt ---
Date of Service October 30, 2018 Assessment & Plan (1) Gram positive sepsis: will continue ctx and follow repeat cultures negative to date, ? skin as source, remain concerned for IE even with negative TTE, await TENNILLE next week, will likely receive prolonged course of IV abx. If cultures remain negative, ok for picc. will likely need 6 weeks IV abx with weekly cbc, cmp, esr while on abx. Subjective pt oob to chair, TENNILLE results pending, TTE negative, repeat cultures negative, initial blood cultures grew GCS. tolerating rocephin. no abd pain, no n/v/d, no cp, sob, cough, schwab. remains with irregular heart rate. no am labs, remains afebrile, overal feeling better. Review of Systems Review of Systems: All systems reviewed & are unremarkable except as noted in HPI & below Physical Exam Constitutional: WD/WN, vitals as above Eyes: PERRL, conjunctivae normal, anicteric sclerae ENMT: external ear and nose normal, oropharynx normal Neck: normal visual inspection Respiratory: normal respiratory effort Auscultation: + diminished lung sounds Cardiovascular: Rate/Rhythm: + irregularly irregular; + abnormal rate and + abnormal rhythm Heart Sounds: + murmur Extremities: no pedal edema and no edema Gastrointestinal (Abdomen): normal bowel sounds, soft, nontender, no hepatosplenomegaly Musculoskeletal: no cyanosis or clubbing, extremities motor strength 5/5 Skin: no rashes, warm and dry Psychiatric: A+Ox3, euthymic affect Results & Data Vital Signs (Past 12 Hours) Vital Signs Temp Pulse Pulse Resp BP Pulse Ox 10/30/18 08:40 37.0 C 89 18 155/84 H 94 10/30/18 08:00 89 10/30/18 07:24 36.8 C 92 H 22 152/95 H 92 10/30/18 03:56 37.0 C 98 H 19 157/80 H 92 10/29/18 23:19 36.7 C 100 H 18 149/91 H 91 Laboratory Results Microbiology 10/26/18 15:04 Blood Aerobic Blood Culture - Preliminary No growth in Aerobic bottle after 48 hours. 10/26/18 15:04 Blood Anaerobic Blood Culture - Preliminary No growth in Anaerobic bottle after 48 hours. 10/26/18 14:49 Blood Aerobic Blood Culture - Preliminary No growth in Aerobic bottle after 48 hours. 10/26/18 14:49 Blood Anaerobic Blood Culture - Preliminary No growth in Anaerobic bottle after 48 hours. 10/25/18 12:00 Blood Aerobic Blood Culture - Final Group C Beta Strep 10/25/18 12:00 Blood Anaerobic Blood Culture - Final 10/25/18 12:10 Blood Aerobic Blood Culture - Final Group C Beta Strep 10/25/18 12:10 Blood Anaerobic Blood Culture - Final Group C Beta Strep PG Care Time/CCT Total # of Minutes Spent Total Time Spent with Patient: Total time spent is greater than 50% in coordination of care (as documented) at patient's floor/unit and/or counseling patient:
[2018-10-30] MEDS: INSULIN ASPART 100 UNITS/ML 3 ML PEN SC SCH ×4 (11:36→20:31)
[2018-10-30] MEDS: ASPIRIN 81 MG CHEW PO SCH ×2 (11:50→20:29)
[2018-10-30] MEDS: ISOSORBIDE MONO EXTENDED REL 60 MG TABCR PO SCH (11:50)
[2018-10-30] MEDS: METOPROLOL SUCC 50MG EXT REL TAB PO SCH ×2 (11:51→20:29)
[2018-10-30] MEDS: DOCUSATE SODIUM 100 MG CAP PO SCH ×2 (11:51→20:30)
[2018-10-30] MEDS: FUROSEMIDE 80 MG TAB PO SCH ×2 (12:33→17:07)
[2018-10-30] MEDS: cefTRIAXone SODIUM 2,000 MG in DEXTROSE 5% 50 ML IV SCH (12:57)
--- NOTE | 2018-10-30 13:28 | Cardiology Progress Note ---
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 no sign of endocarditis on TENNILLE will defer to ID for ongoing treatment. (2) Heart failure, diastolic, with acute decompensation: Restart diuretic therapy today. Repeat basic metabolic panel in a.m. (3) Acute renal failure superimposed on stage 3 chronic kidney disease: Creatinine trending downward. (4) Cellulitis of right lower extremity: (5) S/P aortic valve replacement: Mechanical prosthesis in place. INR therapeutic at 3.2 cont coumadin (6) LBBB (left bundle branch block): (7) Chronic atrial fibrillation: Patient in atrial fibrillation persistently since July. Heart rate improving with addition of Toprol-XL. Dose increased today to 50 mg in the a.m., 25 mg in the evening. Subjective Pt seen and examined, states that he feels well. SOB has improved. Denies cp, sob, palpitations, lightheadedness or dizziness. tele reviewed: Review of Systems Review of Systems: All systems reviewed & are unremarkable except as noted in HPI & below Physical Exam Physical Exam: General: Awake, alert and oriented x 3. No acute distress. HEENT: Normocephalic, atraumatic. Pupils equal, round and reactive to light and accommodation. Extraocular muscles are intact. Anicteric sclera. Moist mucous membranes. Neck: No JVD. No bruit. Cardiovascular: Regular. Positive S-4. Normal S-1 and metallic S-2. No S-3. 3/6 mid to late systolic ejection murmur, greatest at the right sternal border, second intercostal space with radiation to the bilateral carotids. No rubs. Pulmonary: Clear to auscultation bilaterally. No rales, rhonchi, or wheezing. Abdomen: Bowel sounds x 4, soft. No rebound, guarding or tenderness. No organomegaly. Extremities: No clubbing, cyanosis or edema. +2 pedal pulses bilaterally. Skin: Warm and dry. Results & Data Vital Signs (Past 12 Hours) Vital Signs Temp Pulse Pulse Resp BP Pulse Ox 10/30/18 11:20 36.8 C 83 22 157/92 H 94 10/30/18 08:40 37.0 C 89 18 155/84 H 94 10/30/18 08:00 89 10/30/18 07:24 36.8 C 92 H 22 152/95 H 92 10/30/18 03:56 37.0 C 98 H 19 157/80 H 92
[2018-10-30] MEDS ORDERED: WARFARIN SOD 1.25 MG TAB PO SCH (16:00)
--- NOTE | 2018-10-30 18:17 | Hospitalist Progress Note ---
Date of Service October 30, 2018 Assessment & Plan (1) Severe sepsis: (2) Cellulitis of right lower extremity: Possible related to Cellulitis Blood cx positive for group C beta strep Received one dose of IV vanco and Zosyn that changed to dapto, then Rocephin ID on board, Will continue Rocephin IV for now Echo done showed no evidence for vegetation Very high risk for valve replacement given morbidities and renal 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. (3) Bacteremia due to Gram-positive bacteria: Possible related to Cellulitis Blood cx positive for group C beta strep Received one dose of IV vanco that changed to dapto ID on board Abx changed to IV Rocephin Repeat blood cx no growth Echo done showed no evidence for vegetation TENNILLE done today due to concern regarding possible prosthetic valve endocarditis showed no evidence for Endocarditis Will concern with ID about abx on discharge (4) Acute metabolic encephalopathy: Resolved (5) Heart failure, diastolic, with acute decompensation: CXR showed evidence of mild congestive failure/fluid overload. No evidence of lobar consolidation lasix was on hold due to worsening renal function Lasix resumed today Monitor BMP (6) Acute renal failure superimposed on stage 3 chronic kidney disease: Suspect intravascular depletion in the setting of sepsis. 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 Mechanical prosthesis remains competent at this time as per cardiology Very high risk for valve replacement due to morbidities and renal 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. TENNILLE done today showed no Endocarditis (9) Chronic atrial fibrillation: Rate improves Continue metoprolol Heparin drip discontinued Continue coumadin , INR 3.2 today Continue monitor in tele monitor (10) Respiratory failure: Acute respiratory failure with hypoxia Continue Bipap at night Continue oxygen supplement Stable (11) DVT prophylaxis: coumadin with INR 3.2 today CODE STATUS DNR/DNI Disposition Plan to discharge once medically stable Subjective Pt was seen and examined Lying in bed comfortable with no distress He is a little tired today because he had TENNILLE done early today Not interested to go rehab Physical Exam Physical Exam: General- No acute distress Head- atraumatic Eyes- PERRL, EOMI, ENT- oropharynx clear Neck- supple, no JVD Lungs- clear to auscultation Heart- regular rhythm; click sound Abdomen- normal bowel sounds, soft, nontender Extremities- no calf tenderness Neuro- alert, oriented x 3; PERRL, EOMI; no facial palsy; no dysarthria Skin- warm & dry, erythema in RLE improves Results & Data Vital Signs (Past 12 Hours) Vital Signs Temp Pulse Pulse Resp BP Pulse Ox 10/30/18 16:00 116 H 10/30/18 15:08 37.5 C 96 H 20 164/98 H 94 10/30/18 11:20 36.8 C 83 22 157/92 H 94 10/30/18 08:40 37.0 C 89 18 155/84 H 94 10/30/18 08:00 89 10/30/18 07:24 36.8 C 92 H 22 152/95 H 92 (1) Respiratory failure Chronicity: acute Respiratory failure complication: unspecified whether with hypoxia or hypercapnia Qualified Code(s): J96.00 - Acute respiratory failure, unspecified whether with hypoxia or hypercapnia
[2018-10-31] MEDS: LEVOTHYROXINE SODIUM 75 MCG TABLET PO SCH (05:54)
[2018-10-31 06:27] LABS: Prothrombin Time 33.4 Seconds (9.0-12.0)
[2018-10-31 06:37] LABS: INR 3.6 (0.9-1.1)
[2018-10-31 06:41] LABS: BUN Creatinine Ratio 21.9 (10-20); Calcium 8.3 mg/dl (8.5-10.1); Creatinine Clr Calc Pharmacy 43.6 ml/min; Est GFR (African American) 39.3; Est GFR (Non-African American) 33.9; Potassium 3.9 mmol/L (3.5-5.1)
[2018-10-31] MEDS: ISOSORBIDE MONO EXTENDED REL 60 MG TABCR PO SCH (08:43)
[2018-10-31] MEDS: FUROSEMIDE 80 MG TAB PO SCH ×2 (08:43→17:18)
[2018-10-31] MEDS: DOCUSATE SODIUM 100 MG CAP PO SCH ×2 (08:43→19:33)
[2018-10-31] MEDS: ASPIRIN 81 MG CHEW PO SCH ×2 (08:43→19:33)
[2018-10-31] MEDS: METOPROLOL SUCC 50MG EXT REL TAB PO SCH ×2 (08:44→19:33)
[2018-10-31] MEDS: INSULIN ASPART 100 UNITS/ML 3 ML PEN SC SCH ×4 (08:46→20:48)
[2018-10-31] MEDS ORDERED: INSULIN GLARGINE SOLOSTAR 100 UNITS/ML 3 ML PEN SQ SCH (09:00)
--- NOTE | 2018-10-31 10:52 | Cardiology Progress Note ---
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 no sign of endocarditis on TENNILLE will defer to ID for ongoing treatment. (2) Heart failure, diastolic, with acute decompensation: does not examine as volume overloaded will check CXR to confirm has diuresed 5L over last 48 hrs with stable renal function while on home regimen will tailor diuretics after cxr available (3) Acute renal failure superimposed on stage 3 chronic kidney disease: Creatinine stable (4) Cellulitis of right lower extremity: (5) S/P aortic valve replacement: Mechanical prosthesis in place. INR therapeutic at 3.6 cont coumadin (6) LBBB (left bundle branch block): (7) Chronic atrial fibrillation: Patient in atrial fibrillation persistently since July. Heart rate improving with addition of Toprol-XL. Dose increased today to 50 mg in the a.m., 25 mg in the evening. cont coumadin Subjective Pt seen and examined, states that he feels well. SOB has resolved. Denies cp, palpitations, lightheadedness or dizziness. Tele reviewed: afib, rate controlled. Review of Systems Review of Systems: All systems reviewed & are unremarkable except as noted in HPI & below Physical Exam Physical Exam: General: Awake, alert and oriented x 3. No acute distress. HEENT: Normocephalic, atraumatic. Pupils equal, round and reactive to light and accommodation. Extraocular muscles are intact. Anicteric sclera. Moist mucous membranes. Neck: No JVD. No bruit. Cardiovascular: irregularly irregular, unable to appreciate murmur, rub or gallop. Pulmonary: Clear to auscultation bilaterally. No rales, rhonchi, or wheezing. Abdomen: Bowel sounds x 4, soft. No rebound, guarding or tenderness. No organomegaly. Extremities: No clubbing, cyanosis or edema. +2 pedal pulses bilaterally. Skin: Warm and dry. Results & Data Vital Signs (Past 12 Hours) Vital Signs Temp Pulse Resp BP Pulse Ox 10/31/18 07:32 37.2 C 88 20 136/81 92 10/31/18 04:00 36.9 C 86 19 114/74 92 10/30/18 23:13 37.3 C 89 18 127/78 93
[2018-10-31] MEDS: INSULIN GLARGINE SOLOSTAR 100 UNITS/ML 3 ML PEN SC SCH ×2 (11:55→20:48)
--- NOTE | 2018-10-31 12:26 | XRay Report ---
XR chest 2V routine HISTORY: Short of breath. COMPARISON: Chest 10/25/2018. FINDINGS: The heart remains enlarged. Interval progression of the moderate pulmonary edema and small bilateral pleural effusions. Bibasilar densities have also progressed and favor compressive atelectas is from the pleural effusions. No pneumothorax. Cardiac valve prosthesis and poststernotomy changes a re again noted. Rotated study. IMPRESSION: Interval progression of the moderate pulmonary edema and small bilateral pleural effusions. Electronically signed by: Farhat Vitale M.D. 10/31/2018 12:25 PM
[2018-10-31] MEDS: cefTRIAXone SODIUM 2,000 MG in DEXTROSE 5% 50 ML IV SCH (12:39)
--- NOTE | 2018-10-31 14:17 | Infectious Disease Progress Nt ---
Date of Service October 31, 2018 Assessment & Plan (1) Gram positive sepsis: will continue ctx and follow repeat cultures negative to date, ? skin as source, TENNILLE negative for beg. will likely receive prolonged course of IV abx - 4 weeks total. If cultures remain negative, ok for picc. will likely need 4weeks IV abx with weekly cbc, cmp, esr while on abx. ok for d/c when otherwise stable. Subjective pt seen in followup, doing well on abx. remains on ctx. TENNILLE negative for veg. for d/c on 4 weeks IV abx. denies cp, sob, cough, schwab, no n/v/d/ abd pain, states he is tired but otherwise feeling well. Review of Systems Review of Systems: All systems reviewed & are unremarkable except as noted in HPI & below Physical Exam Constitutional: WD/WN, vitals as above Eyes: PERRL, conjunctivae normal, anicteric sclerae ENMT: external ear and nose normal, oropharynx normal Neck: normal visual inspection Respiratory: normal respiratory effort Auscultation: + diminished lung sounds Cardiovascular: Rate/Rhythm: + irregularly irregular; + abnormal rate and + abnormal rhythm Heart Sounds: + murmur Extremities: no pedal edema and no edema Gastrointestinal (Abdomen): normal bowel sounds, soft, nontender, no he patosplenomegaly Musculoskeletal: no cyanosis or clubbing, extremities motor strength 5/5 Skin: no rashes, warm and dry Psychiatric: A+Ox3, euthymic affect Results & Data Vital Signs (Past 12 Hours) Vital Signs Temp Pulse Resp BP Pulse Ox 10/31/18 07:32 37.2 C 88 20 136/81 92 10/31/18 04:00 36.9 C 86 19 114/74 92 Laboratory Results Microbiology 10/26/18 15:04 Blood Aerobic Blood Culture - Preliminary No growth in Aerobic bottle after 48 hours. 10/26/18 15:04 Blood Anaerobic Blood Culture - Preliminary No growth in Anaerobic bottle after 48 hours. 10/26/18 14:49 Blood Aerobic Blood Culture - Preliminary No growth in Aerobic bottle after 48 hours. 10/26/18 14:49 Blood Anaerobic Blood Culture - Preliminary No growth in Anaerobic bottle after 48 hours. 10/25/18 12:00 Blood Aerobic Blood Culture - Final Group C Beta Strep 10/25/18 12:00 Blood Anaerobic Blood Culture - Final 10/25/18 12:10 Blood Aerobic Blood Culture - Final Group C Beta Strep 10/25/18 12:10 Blood Anaerobic Blood Culture - Final Group C Beta Strep
--- NOTE | 2018-10-31 14:42 | Pharmacy Report ---
Pharmacy Glycemic Short Note 2 - Date of Service October 31, 2018 - Glycemic Short BSG Results (Last 24 hours): 10/30/18 10/30/18 10/31/18 15:58 20:18 05:43 Glucose 179 H POC Glucose 158 H 199 H 10/31/18 10/31/18 07:31 11:54 Glucose POC Glucose 177 H 132 H OUTPATIENT ANTIDIABETIC REGIMEN: * Lantus 20 units SQ BID * Novolog 4 units SQ TID with meals * HbA1c: 9.2% (10/26/18) ASSESSMENT: * Basal insulin was reduced yesterday as pt was NPO for procedure. * Fasting BSG was elevated this morning (179mg/dL). Fasting BSGs look good with ~35-40 units of Lantus. Lantus 20 units SQ BID was resumed this morning. * Novolog coverage appears to be adequate at this time. PLAN FOR INPATIENT GLYCEMIC CONTROL: * Basal insulin * Lantus 20 units SQ BID * Bolus insulin * NovoLog per scale ACHS or Q6hrs while NPO * Goal Range: Low 120 mg/dL - High 160 mg/dL * Correction Factor: 20 mg/dL/unit * Nutritional / Prandial insulin per carb ratio of 1 unit per 7 grams CHO consumed PLAN FOR DISCHARGE: * Patient's A1c (9.2%) indicates suboptimal glycemic control as an outpatient. * Patient's outpatient regimen is quite basal heavy, however, this appears to be an appropriate dose of Lantus. * Recommend increasing the dose of Novolog with meals to provide more adequate coverage throughout the day. * Consider 8-10 units with each meal * Recommend prompt f/u with outpatient provider to work toward optimizing A1c.
--- NOTE | 2018-10-31 19:07 | Hospitalist Progress Note ---
Date of Service October 31, 2018 Assessment & Plan (1) Severe sepsis: (2) Cellulitis of right lower extremity: Possible related to Cellulitis Blood cx positive for group C beta strep Received one dose of IV vanco and Zosyn that changed to dapto, then Rocephin ID on board, Will continue Rocephin IV for now Echo done showed no evidence for vegetation Very high risk for valve replacement given morbidities and renal 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. (3) Bacteremia due to Gram-positive bacteria: Possible related to Cellulitis Blood cx positive for group C beta strep Received one dose of IV vanco that changed to dapto ID on board Abx changed to IV Rocephin case discussed with ID and recommended IV rocephin for 4 weeks Repeat blood cx no growth Echo done showed no evidence for vegetation TENNILLE done due to concern regarding possible prosthetic valve endocarditis showed no evidence for Endocarditis Will need weekly CMP, CBC and ESR while on abx U/S guided peripheral IV access placed today (4) Acute metabolic encephalopathy: Resolved (5) Heart failure, diastolic, with acute decompensation: CXR showed evidence of mild congestive failure/fluid overload. No evidence of lobar consolidation lasix was on hold due to worsening renal function CXR done today showed interval progression of the moderate pulmonary edema and small bilateral pleural effusions. Cardiology recommended to continue lasix 80mg BID on discharge Monitor BMP (6) Acute renal failure superimposed on stage 3 chronic kidney disease: Suspect intravascular depletion in the setting of sepsis. 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 Mechanical prosthesis remains competent at this time as per cardiology Very high risk for valve replacement due to morbidities and renal 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. TENNILLE done today showed no Endocarditis (9) Chronic atrial fibrillation: Rate improves Continue metoprolol Heparin drip discontinued On coumadin , INR 3.6 today Continue monitor in tele monitor (10) Respiratory failure: Acute respiratory failure with hypoxia Continue Bipap at night Continue oxygen supplement Stable (11) DVT prophylaxis: On coumadin with INR 3.6 today CODE STATUS DNR/DNI Disposition Plan to discharge home tomorrow Subjective Pt was seen and examined Lying in bed with no distress Pt said that he feels fine he refused to participate in therapy today He does not want to hear the idea of going to SNF Updated provided to his niece Aleisha as per his permission Denies any chest pain, palpitation, dizziness and SOB Physical Exam Physical Exam: General- No acute distress Head- atraumatic Eyes- PERRL, EOMI, ENT- oropharynx clear Neck- supple, no JVD Lungs- clear to auscultation Heart- regular rhythm; click sound Abdomen- normal bowel sounds, soft, nontender Extremities- no calf tenderness Neuro- alert, oriented x 3; PERRL, EOMI; no facial palsy; no dysarthria Skin- warm & dry, erythema in RLE improves Results & Data Vital Signs (Past 12 Hours) Vital Signs Temp Pulse Resp BP Pulse Ox 10/31/18 15:11 37.3 C 85 18 163/99 H 93 10/31/18 12:30 37.1 C 87 20 151/90 H 91 10/31/18 07:32 37.2 C 88 20 136/81 92 (1) Respiratory failure Chronicity: acute Respiratory failure complication: unspecified whether with hypoxia or hypercapnia Qualified Code(s): J96.00 - Acute respiratory failure, unspecified whether with hypoxia or hypercapnia
[2018-11-01] MEDS: LEVOTHYROXINE SODIUM 75 MCG TABLET PO SCH (06:04)
[2018-11-01 07:03] LABS: INR 2.9 (0.9-1.1)
[2018-11-01 07:28] LABS: BUN Creatinine Ratio 22.3 (10-20); Calcium 8.3 mg/dl (8.5-10.1); Creatinine Clr Calc Pharmacy 45.6 ml/min; Est GFR (African American) 42.6; Est GFR (Non-African American) 36.7; Potassium 3.8 mmol/L (3.5-5.1)
[2018-11-01] MEDS: ISOSORBIDE MONO EXTENDED REL 60 MG TABCR PO SCH (07:37)
[2018-11-01] MEDS: DOCUSATE SODIUM 100 MG CAP PO SCH ×2 (07:37→21:21)
[2018-11-01] MEDS: METOPROLOL SUCC 50MG EXT REL TAB PO SCH ×2 (07:37→21:21)
[2018-11-01] MEDS: INSULIN GLARGINE SOLOSTAR 100 UNITS/ML 3 ML PEN SC SCH ×2 (07:38→21:19)
[2018-11-01] MEDS: FUROSEMIDE 80 MG TAB PO SCH ×2 (07:38→17:07)
[2018-11-01] MEDS: ASPIRIN 81 MG CHEW PO SCH ×2 (07:41→21:21)
[2018-11-01] MEDS: INSULIN ASPART 100 UNITS/ML 3 ML PEN SC SCH ×4 (07:44→21:18)
--- NOTE | 2018-11-01 12:24 | Hospitalist Progress Note ---
Date of Service November 01, 2018 Assessment & Plan (1) Severe sepsis: Secondary to right lower extremity cellulitis He has a cellulitis on the RLE and new GPC bacteremia. Daptomycin switched to Vancomycin overnight. Conted on Zosyn. Appreciate ID input and recommendation Has been switched to intravenous Rocephin which will be continued for a total of 4 weeks Has PICC line and likely to go tomorrow (2) Cellulitis of right lower extremity: Possible related to Cellulitis Blood cx positive for group C beta strep Received one dose of IV vanco and Zosyn that changed to dapto, then Rocephin ID on board, Will continue Rocephin IV for now TENNILLE did not show any endocarditis (3) Bacteremia due to Gram-positive bacteria: Possible related to Cellulitis Blood cx positive for group C beta strep Received one dose of IV vanco that changed to dapto and Zosyn ID on board-appreciate recommendation Abx changed to IV Rocephin Repeat blood cx no growth TENNILLE done due to concern regarding possible prosthetic valve endocarditis showed no evidence for Endocarditis We will continue antibiotic for a total of 4 weeks Weekly CBC and CMP will be needed while on antibiotic (4) Acute metabolic encephalopathy: Resolved (5) Heart failure, diastolic, with acute decompensation: CXR showed evidence of mild congestive failure/fluid overload. No evidence of lobar consolidation Lasix was on hold due to worsening renal function CXR done today showed interval progression of the moderate pulmonary edema and small bilateral pleural effusions. Cardiology recommended to continue lasix 80mg BID on discharge Monitor BMP (6) Acute renal failure superimposed on stage 3 chronic kidney disease: Suspect intravascular depletion in the setting of sepsis. 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 Mechanical prosthesis remains competent at this time as per cardiology Very high risk for valve replacement due to morbidities and renal 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. TENNILLE done today showed no Endocarditis (9) Chronic atrial fibrillation: Rate improves Continue metoprolol Heparin drip discontinued On coumadin , INR 3.6 today Continue monitor in tele monitor (10) Respiratory failure: Acute respiratory failure with hypoxia Continue Bipap at night Continue oxygen supplement Symptomatically better no desaturation (11) DVT prophylaxis: On coumadin with INR 3.6 today CODE STATUS DNR/DNI Disposition He has decreased mobility due to old CVA and right hemiparesis PT recommended rehab but the patient is going to go home Discussed with the patient and he mentioned that he would be better off at home We will discuss with Lorraine before discharge tomorrow Home health nurse will provide intravenous antibiotic at home Subjective 11/01 Patient was seen and examined in telemetry unit This is a 78-year-old male who has significant past medical history of CAD, history of prosthetic AVR, paroxysmal atrial fibrillation, long-term anticoagulation on warfarin, T2DM, HTN, HLD, hypothyroidism, PVD, anemia of chronic disease, morbid obesity, history of prosthetic valve endocarditis, ascending aortic aneurysm who presents to [facility] ED due to feeling x1 day. He has been feeling a lot better denies any significant symptoms He has limited mobility at baseline secondary to right hemiparesis due to prior CVA He wants to go home today Physical therapy recommended for rehab Review of Systems Review of Systems: All systems reviewed and are unremarkable except as noted below Constitutional: + fatigue and + weakness Physical Exam Physical Exam: Lying in bed comfortably Constitutional: well developed, well nourished, + ill appearing and + obese; no acute distress Eyes: PERRL, conjunctivae normal, anicteric sclerae ENMT: Mouth: + dentition abnormality and + edentulous Mallampati Class: III Neck: trachea midline, no thyromegaly normal visual inspection and + thick neck Respiratory: normal respiratory effort Auscultation: lungs clear to auscultation bilaterally and + diminished lung sounds; no wheezes Cardiovascular: Rate/Rhythm: + irregularly irregular; + abnormal rate and + abnormal rhythm Heart Sounds: normal S1, normal S2 and + murmur Vessels: no JVD and no carotid bruit Extremities: no pedal edema and no edema Gastrointestinal (Abdomen): Inspection/Auscultation: abdomen normal to inspection and normal bowel sounds Percussion/Palpation: abdomen soft Musculoskeletal: Extremities: extremities normal to inspection (2+ pitting edema BLEs (improved, per patient)) Skin: no rashes, warm and dry Neurologic: Right hemiparesis Psychiatric: A+Ox3, euthymic affect Orientation: alert and oriented x 3 Lymphatic: no cervical or axillary lymphadenopathy Results & Data Vital Signs (Past 12 Hours) Vital Signs Temp Pulse Pulse Resp BP Pulse Ox 11/01/18 11:38 37.0 C 75 18 161/95 H 92 11/01/18 08:00 89 11/01/18 07:27 37.0 C 86 20 149/74 H 96 11/01/18 03:49 37.2 C 89 19 157/89 H 94 Laboratory Results BMP 11/01/18 06:33 Sodium 138 Potassium 3.8 Chloride 104 Carbon Dioxide 29 BUN 39 H Creatinine 1.74 H Glucose 150 H Calcium 8.3 L Medications Administered Current Inpatient Medications Aspirin (Aspirin Chew) 40.5 mg PO [facility] Stop: 11/25/18 20:59 Last Admin: 11/01/18 07:41 Dose: 40.5 mg Documented by: Dextrose (Dextrose 50%) 25 - 50 ml IV UD PRN; Protocol PRN Reason: Hypoglycemia Protocol Stop: 11/24/18 16:05 Docusate Sodium (Colace) 100 mg PO [facility] Stop: 11/25/18 20:59 Last Admin: 11/01/18 07:37 Dose: 100 mg Documented by: Furosemide (Lasix) 80 mg PO BID17 [facility] Stop: 11/28/18 16:59 Last Admin: 11/01/18 07:38 Dose: 80 mg Documented by: Glucagon (Glucagen) 1 mg SQ UD PRN; Protocol PRN Reason: Hypoglycemia Protocol Stop: 11/24/18 16:05 Glucose (Glucose 40%) 15 - 30 gm PO UD PRN; Protocol PRN Reason: Hypoglycemia Protocol Stop: 11/24/18 16:05 Glucose (Dex4 Glucose) 4 - 8 tabs PO UD PRN; Protocol PRN Reason: Hypoglycemia Protocol Stop: 11/24/18 16:05 Acetaminophen (Ofirmev) 65 mls @ 200 mls/hr IV Q4H PRN PRN Reason: Fever Stop: 11/24/18 16:05 Ceftriaxone Sodium 2,000 mg/ (Dextrose) 70 mls @ 100 mls/hr IV DAILY@1300 [facility] Stop: 11/10/18 12:59 Last Admin: 11/01/18 12:26 Dose: 100 mls/hr Documented by: Insulin Aspart (Novolog Flexpen) [address] [facility] ON LICENSE OF [facility] Stop: 11/25/18 16:29 Last Admin: 11/01/18 12:24 Dose: 6 units Documented by: Insulin Glargine (Lantus Solostar Pen) 20 units SC BID [facility]; Protocol Stop: 11/30/18 08:59 Last Admin: 11/01/18 07:38 Dose: 20 units Documented by: Ipratropium [place] (Atrovent 0.02% 0.5mg/2.5ml) 0.5 mg INH Q6R PRN PRN Reason: SOB or wheezing Stop: 11/25/18 01:59 Isosorbide Mononitrate (Imdur Extended Rel) 60 mg PO QAM ON [facility] Stop: 11/26/18 14:44 Last Admin: 11/01/18 07:37 Dose: 60 mg Documented by: Labetalol HCl (Normodyne) 10 mg IV ONE PRN PRN Reason: sbp above 170 Stop: 11/26/18 18:50 Last Admin: 10/28/18 16:21 Dose: 10 mg Documented by: Levalbuterol HCl (Xopenex 1.25mg/0.5ml Neb) 1.25 mg INH Q6R PRN PRN Reason: SOB or wheezing Stop: 11/25/18 01:59 Levothyroxine Sodium (Synthroid) 75 mcg PO DAILYBB ON [facility] OF [facility] Stop: 11/26/18 06:29 Last Admin: 11/01/18 06:04 Dose: 75 mcg Documented by: Metoprolol Succinate (Toprol Xl) 50 mg PO BID [facility] Stop: 11/28/18 08:59 Last Admin: 11/01/18 07:37 Dose: 50 mg Documented by: Miconazole Nitrate (Desenex) 1 appln EXT PRN PRN PRN Reason: Affected Skin Folds Stop: 11/25/18 13:56 Miscellaneous (Carbohydrates For Hypoglycemia) 15 - 30 gm PO UD PRN PRN Reason: Hypoglycemia Treatment Stop: 11/24/18 16:05 Miscellaneous Information (Consult Glycemic Management Pharmacy) 1 ea N/A UD PRN; Protocol PRN Reason: Consult Stop: 11/24/18 17:05 Spironolactone (Aldactone) 12.5 mg PO QAM ON [facility] Stop: 11/26/18 08:59 Warfarin Sodium (Coumadin) 2.5 mg PO DAILY@1600 ON [facility] Stop: 11/27/18 15:59 Last Admin: 10/29/18 17:04 Dose: 2.5 mg Documented by: (1) Respiratory failure Chronicity: acute Respiratory failure complication: unspecified whether with hypoxia or hypercapnia Qualified Code(s): J96.00 - Acute respiratory failure, unspecified whether with hypoxia or hypercapnia
[2018-11-01] MEDS: cefTRIAXone SODIUM 2,000 MG in DEXTROSE 5% 50 ML IV SCH (12:26)
--- NOTE | 2018-11-01 13:56 | Pharmacy Report ---
Pharmacy Glycemic Short Note 2 - Date of Service November 01, 2018 - Glycemic Short BSG Results (Last 24 hours): 10/31/18 10/31/18 11/01/18 16:12 20:37 06:33 Glucose 150 H POC Glucose 157 H 172 H 11/01/18 11/01/18 07:32 11:21 Glucose POC Glucose 150 H 186 H OUTPATIENT ANTIDIABETIC REGIMEN: * Lantus 20 units SQ BID * Novolog 4 units SQ TID with meals * HbA1c: 9.2% (10/26/18) ASSESSMENT: * BSGs have been relatively well-controlled for the past 24 hours. * Patient received only 25 of the ordered 40 units of basal insulin yesterday. BSGs are somewhat elevated today, but not significantly. * Will continue the transition to Lantus 20 units BID, as this is what the patient takes at home. Expected discharge tomorrow. * Patient could potentially use more prandial coverage, as BSGs do trend slightly upward throughout the day. Will tighten carb ratio tomorrow if BSGs are stable on new Lantus dose. PLAN FOR INPATIENT GLYCEMIC CONTROL: * Basal insulin * Lantus 20 units SQ BID * Bolus insulin * NovoLog per scale ACHS or Q6hrs while NPO * Goal Range: Low 120 mg/dL - High 160 mg/dL * Correction Factor: 20 mg/dL/unit * Nutritional / Prandial insulin per carb ratio of 1 unit per 7 grams CHO consumed PLAN FOR DISCHARGE: * Patient's A1c (9.2%) indicates suboptimal glycemic control as an outpatient. * Patient's outpatient regimen is quite basal heavy, however, this appears to be an appropriate dose of Lantus. * Recommend increasing the dose of Novolog with meals to provide more adequate coverage throughout the day. * Consider 8-10 units with each meal * Recommend prompt f/u with outpatient provider to work toward optimizing A1c.
[2018-11-01] MEDS: WARFARIN SOD 2.5 MG TAB PO SCH (17:07)
[2018-11-02] MEDS: LEVOTHYROXINE SODIUM 75 MCG TABLET PO SCH (05:35)
[2018-11-02 06:19] LABS: Basophils # (auto) 0.04 K/uL (0-0.2); Basophils % (auto) 0.5 %; Eosinophils % (auto) 3.5 %; Hematocrit (blood only) 33.7 % (42-52); Hemoglobin 11.1 g/dL (14.0-18.0); Immature Granulocytes # (auto) 0.04 K/uL (0.00-0.02); Immature Granulocytes % (auto) 0.5 %; Lymphocytes # (auto) 1.45 K/uL (1.2-3.4); Mean Corpuscular Hgb Conc 32.9 g/dL (32-36); Mean Corpuscular Volume 81.8 fL (80-100); Monocytes # (auto) 1.01 K/uL (0.11-0.59); Monocytes % (auto) 11.8 %; Neutrophils % (auto) 66.7 %; Platelet Count 219 K/uL (130-400); RDW Coefficient of Variation 16.9 % (11.5-14.5); RDW Standard Deviation 51.2 fL (36.4-46.3); Red Blood Count 4.12 M/uL (4.7-6.1); White Blood Count 8.54 K/uL (4.8-10.8)
[2018-11-02 06:27] LABS: INR 3.1 (0.9-1.1); Prothrombin Time 29.1 Seconds (9.0-12.0)
[2018-11-02 06:48] LABS: BUN Creatinine Ratio 22.1 (10-20); Calcium 8.2 mg/dl (8.5-10.1); Creatinine Clr Calc Pharmacy 45.2 ml/min; Est GFR (Non-African American) 36.2; Magnesium 2.2 mg/dl (1.8-2.4); Potassium 3.5 mmol/L (3.5-5.1)
[2018-11-02] MEDS: METOPROLOL SUCC 50MG EXT REL TAB PO SCH (08:27)
[2018-11-02] MEDS: ISOSORBIDE MONO EXTENDED REL 60 MG TABCR PO SCH (08:27)
[2018-11-02] MEDS: FUROSEMIDE 80 MG TAB PO SCH (08:27)
[2018-11-02] MEDS: DOCUSATE SODIUM 100 MG CAP PO SCH (08:27)
[2018-11-02] MEDS: ASPIRIN 81 MG CHEW PO SCH (08:27)
[2018-11-02] MEDS: INSULIN GLARGINE SOLOSTAR 100 UNITS/ML 3 ML PEN SC SCH (08:28)
[2018-11-02] MEDS: INSULIN ASPART 100 UNITS/ML 3 ML PEN SC SCH ×3 (08:28→16:57)
--- NOTE | 2018-11-02 11:34 | Hospitalist Progress Note ---
Date of Service November 02, 2018 Assessment & Plan (1) Bacteremia due to Gram-positive bacteria: Possible related to Cellulitis Blood cx positive for group C beta strep Received one dose of IV vanco that changed to dapto and Zosyn ID on board-appreciate recommendation Abx changed to IV Rocephin Repeat blood cx no growth TENNILLE done due to concern regarding possible prosthetic valve endocarditis showed no evidence for Endocarditis We will continue antibiotic for a total of 4 weeks Weekly CBC and CMP will be needed while on antibiotic (2) Cellulitis of right lower extremity: Blood cx positive for group C beta strep Received one dose of IV vanco and Zosyn that changed to dapto, then Rocephin ID on board, Will continue Rocephin IV for now TENNILLE did not show any endocarditis IV antibiotic for a total of 4 weeks (3) Severe sepsis: Secondary to right lower extremity cellulitis He has a cellulitis on the RLE and new GPC bacteremia. Daptomycin switched to Vancomycin overnight. Continued on Zosyn. Appreciate ID input and recommendation Antibiotic has been switched to intravenous Rocephin which will be continued for a total of 4 weeks Has PICC line and and is working Awaiting placement to [facility] (4) Right hemiparesis: Ambulatory dysfunction secondary Secondary to old stroke Mobility is limited PT evaluation recommended for rehab before going back to home Awaiting to be accepted to [facility] (5) Acute metabolic encephalopathy: Resolved (6) Heart failure, diastolic, with acute decompensation: CXR showed evidence of mild congestive failure/fluid overload. No evidence of lobar consolidation Lasix was on hold due to worsening renal function CXR done today showed interval progression of the moderate pulmonary edema and small bilateral pleural effusions. Cardiology recommended to continue lasix 80mg BID on discharge Monitor BMP (7) Acute renal failure superimposed on stage 3 chronic kidney disease: Suspect intravascular depletion in the setting of sepsis. Creatinine continue to improve today from 2.9 --> 2.2 --> 1.8 Lasix resumed Creatinine is improved and is 1.74 as of 11/01 seems to be better than his baseline (8) T2DM (type 2 diabetes mellitus): Hgba1c 9.2 on 10/26/18 Pharmacy on board for glycemic management Continue monitor BS (9) History of endocarditis: Has a mechanical aortic valve present with a h/o endocarditis. Mechanical prosthesis remains competent at this time as per cardiology Very high risk for valve replacement due to morbidities and renal 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. TENNILLE done today showed no Endocarditis (10) Chronic atrial fibrillation: Rate improves Continue metoprolol Heparin drip discontinued On coumadin , INR 3.6 today Continue monitor in tele monitor (11) Respiratory failure: Acute respiratory failure with hypoxia Continue Bipap at night Continue oxygen supplement Symptomatically better no desaturation (12) DVT prophylaxis: On coumadin with INR 3.6 today CODE STATUS DNR/DNI Disposition He has decreased mobility due to old CVA and right hemiparesis PT recommended rehab but the patient is going to go home Discussed with the patient and he mentioned that he would be better off at home We will discuss with Lorraine before discharge tomorrow Like to be discharged to [facility] when accepted Subjective 11/01 Patient was seen and examined in telemetry unit This is a 78-year-old male who has significant past medical history of CAD, history of prosthetic AVR, paroxysmal atrial fibrillation, long-term anticoagulation on warfarin, T2DM, HTN, HLD, hypothyroidism, PVD, anemia of chronic disease, morbid obesity, history of prosthetic valve endocarditis, ascending aortic aneurysm who presents to [facility] ED due to feeling x1 day. He has been feeling a lot better denies any significant symptoms He has limited mobility at baseline secondary to right hemiparesis due to prior CVA He wants to go home today Physical therapy recommended for rehab 11/02 The patient was seen and examined in telemetry He has been stable for the last 2 days He denies any significant symptoms Physical therapist recommended to go to rehab He has been waiting to be accepted to [facility] Review of Systems Review of Systems: All systems reviewed and are unremarkable except as noted below Constitutional: + fatigue and + weakness Neurologic: Has right hemiparesis Physical Exam Physical Exam: No apparent distress at rest Constitutional: well developed, well nourished and + obese; no acute distress Eyes: PERRL, conjunctivae normal, anicteric sclerae ENMT: Mouth: + dentition abnormality and + edentulous Mallampati Class: III Neck: trachea midline, no thyromegaly normal visual inspection and + thick neck Respiratory: normal respiratory effort Auscultation: lungs clear to auscultation bilaterally and + diminished lung sounds; no wheezes Cardiovascular: Rate/Rhythm: + irregularly irregular; + abnormal rate and + abnormal rhythm Heart Sounds: normal S1, normal S2 and + murmur Vessels: no JVD and no carotid bruit Extremities: no pedal edema and no edema Gastrointestinal (Abdomen): Inspection/Auscultation: abdomen normal to inspection and normal bowel sounds Percussion/Palpation: abdomen soft Skin: no rashes, warm and dry Neurologic: + focal motor deficit (Right hemiparesis secondary to old stroke) Psychiatric: A+Ox3, euthymic affect Orientation: alert and oriented x 3 Lymphatic: no cervical or axillary lymphadenopathy Results & Data Vital Signs (Past 12 Hours) Vital Signs Temp Pulse Pulse Resp BP Pulse Ox 11/02/18 07:40 86 11/02/18 07:36 36.9 C 88 20 134/65 98 11/02/18 03:03 37.0 C 80 25 H 145/77 H 92 11/02/18 00:00 90 Laboratory Results Short CBC 11/02/18 Range/Units 05:32 WBC 8.54 (4.8-10.8) K/uL Hgb 11.1 L (14.0-18.0) g/dL Hct 33.7 L (42-52) % Plt Count 219 (130-400) K/uL [facility] 11/02/18 05:32 Sodium 139 Potassium 3.5 Chloride 104 Carbon Dioxide 29 BUN 39 H Creatinine 1.76 H Glucose 120 H Calcium 8.2 L Medications Administered Current Inpatient Medications Aspirin (Aspirin Chew) 40.5 mg PO [facility] Stop: 11/25/18 20:59 Last Admin: 11/02/18 08:27 Dose: 40.5 mg Documented by: Dextrose (Dextrose 50%) 25 - 50 ml IV UD PRN; Protocol PRN Reason: Hypoglycemia Protocol Stop: 11/24/18 16:05 Docusate Sodium (Colace) 100 mg PO [facility] Stop: 11/25/18 20:59 Last Admin: 11/02/18 08:27 Dose: 100 mg Documented by: Furosemide (Lasix) 80 mg PO BID17 [facility] Stop: 11/28/18 16:59 Last Admin: 11/02/18 08:27 Dose: 80 mg Documented by: Glucagon (Glucagen) 1 mg SQ UD PRN; Protocol PRN Reason: Hypoglycemia Protocol Stop: 11/24/18 16:05 Glucose (Glucose 40%) 15 - 30 gm PO UD PRN; Protocol PRN Reason: Hypoglycemia Protocol Stop: 11/24/18 16:05 Glucose (Dex4 Glucose) 4 - 8 tabs PO UD PRN; Protocol PRN Reason: Hypoglycemia Protocol Stop: 11/24/18 16:05 Acetaminophen (Ofirmev) 65 mls @ 200 mls/hr IV Q4H PRN PRN Reason: Fever Stop: 11/24/18 16:05 Ceftriaxone Sodium 2,000 mg/ (Dextrose) 70 mls @ 100 mls/hr IV DAILY@1300 [facility] Stop: 11/10/18 12:59 Last Infusion: 11/01/18 13:09 Dose: Infused Documented by: Insulin Aspart (Novolog Flexpen) 0 units SC ACHS [facility] Stop: 11/25/18 16:29 Last Admin: 11/02/18 08:28 Dose: 5 units Documented by: Insulin Glargine (Lantus Solostar Pen) 20 units SC BID [facility]; Protocol Stop: 11/30/18 08:59 Last Admin: 11/02/18 08:28 Dose: 20 units Documented by: Ipratropium [place] (Atrovent 0.02% 0.5mg/2.5ml) 0.5 mg INH Q6R PRN PRN Reason: SOB or wheezing Stop: 11/25/18 01:59 Isosorbide Mononitrate (Imdur Extended Rel) 60 mg PO QAM [facility] Stop: 11/26/18 14:44 Last Admin: 11/02/18 08:27 Dose: 60 mg Documented by: Labetalol HCl (Normodyne) 10 mg IV ONE PRN PRN Reason: sbp above 170 Stop: 11/26/18 18:50 Last Admin: 10/28/18 16:21 Dose: 10 mg Documented by: Levalbuterol HCl (Xopenex 1.25mg/0.5ml Neb) 1.25 mg INH Q6R PRN PRN Reason: SOB or wheezing Stop: 11/25/18 01:59 Levothyroxine Sodium (Synthroid) 75 mcg PO DAILYBB [facility] Stop: 11/26/18 06:29 Last Admin: 11/02/18 05:35 Dose: 75 mcg Documented by: Metoprolol Succinate (Toprol Xl) 50 mg PO BID [facility] Stop: 11/28/18 08:59 Last Admin: 11/02/18 08:27 Dose: 50 mg Documented by: Miconazole Nitrate (Desenex) 1 appln EXT PRN PRN PRN Reason: Affected Skin Folds Stop: 11/25/18 13:56 Miscellaneous (Carbohydrates For Hypoglycemia) 15 - 30 gm PO UD PRN PRN Reason: Hypoglycemia Treatment Stop: 11/24/18 16:05 Miscellaneous Information (Consult Glycemic Management Pharmacy) 1 ea N/A UD PRN; Protocol PRN Reason: Consult Stop: 11/24/18 17:05 Spironolactone (Aldactone) [facility] Stop: 11/26/18 08:59 Warfarin Sodium (Coumadin) 2.5 mg PO DAILY@1600 [facility] Stop: 11/27/18 15:59 Last Admin: 11/01/18 17:07 Dose: 2.5 mg Documented by: (1) Respiratory failure Chronicity: acute Respiratory failure complication: unspecified whether with hypoxia or hypercapnia Qualified Code(s): J96.00 - Acute respiratory failure, unspecified whether with hypoxia or hypercapnia
[2018-11-02] MEDS: cefTRIAXone SODIUM 2,000 MG in DEXTROSE 5% 50 ML IV SCH (12:40)
[2018-11-02] MEDS: WARFARIN SOD 2.5 MG TAB PO SCH (15:55)
--- NOTE | 2018-11-03 08:20 | Discharge Summary ---
Date of Service November 03, 2018 Admission HPI Per Admitting Provider This is a 78-year-old male who has significant past medical history of CAD, history of prosthetic AVR, paroxysmal atrial fibrillation, long-term anticoagulation on warfarin, T2DM, HTN, HLD, hypothyroidism, PVD, anemia of chronic disease, morbid obesity, history of prosthetic valve endocarditis, ascending aortic aneurysm who presents to [facility] ED due to feeling x1 day. Family is at bedside and provides most of history. Unable to obtain accurate history from patient due to BiPAP and somnolence. According to family patient was seen by cardiology CHEN Olivares on 10/24 and was felt to have increased swelling therefore his Lasix was going to be increased to 80 mg twice daily or switched to torsemide pending a BMP today. He had been doing well up until today when he woke up this morning not feeling well, increased confusion and noticeable shortness of breath. Also complaints of sinus congestion and rhinorrhea past few days requiring him to take OTC cold and sinus medications. EMS was summoned. Of significance patient was hospitalized at [facility] ED on 05/2018 secondary to fever and volume overload. Blood cultures were positive for group B strep. TENNILLE revealed prosthetic valve endocarditis. Patient required 6- week course of IV Rocephin which finished at the end of June. He did have a repeat TTE on 08/15 which revealed LV wall thickness moderately concentric, septal motion consistent with LBBB EF 50-54%. Admission Exam Per Admitting Provider Physical Exam: Gen: Elderly, obese male, lying in bed, +bipap, alert and arousable to verbal stimuli but confused, follows commands Head: Normocephalic, Atraumatic Eyes: Sclera normal, no conjunctival injection, PERRLA, EOMI ENT: Gross hearing diminished, pt hard of hearing, normal pharynx, mucous membrane dry from bipap Neck: supple, no adenopathy, No JVD, no bruit, Resp: Clear to auscultation b/ with crackles bibasilar, no wheeze, or rhonchi. Normal insp/exp effort, no accessory muscle use CV: irregular rate, irregular rhythm, audible mechanical click noted with soft angelito, rub, gallop, or ectopy Abd: obese abdomen, +BS x 4, soft, nontender, nondistended Musculoskeletal: moves extremities active rom x 4, strength intact, good anesthesia tech strength Extremities: B/L venous stasis changes R >L with venous stasis open ulcerations superior to R medial malleolus. RLE warm, erythematous with streaking extending to proximal medial thigh. +++edema b/l. B/L pedal pulse +1 and equal. Skin: warm, moist, negative turgor, cap refill < 2sec Neuro: Alert and oriented to self only, speech slowed, flat mood/affect, cran nerve 2-12 intact grossly : deferred Principal Diagnosis Gram-positive bacteremia likely secondary to right leg cellulitis, right hemiparesis secondary to old stroke, chronic A. fib, diastolic heart failure, status post mechanical aortic valve replacement with history of endocarditis Discharge Exam Constitutional WD/WN, vitals as above well developed, well nourished and + obese; no acute distress Eyes PERRL, conjunctivae normal, anicteric sclerae ENMT Mouth: + dentition abnormality and + edentulous Mallampati Class: III Neck trachea midline, no thyromegaly normal visual inspection and + thick neck Respiratory normal respiratory effort Auscultation: lungs clear to auscultation bilaterally and + diminished lung sounds; no wheezes Cardiovascular Rate/Rhythm: + irregularly irregular; + abnormal rate and + abnormal rhythm Heart Sounds: normal S1, normal S2 and + murmur Vessels: no JVD and no carotid bruit Extremities: no pedal edema and no edema Gastrointestinal (Abdomen) normal bowel sounds, soft, nontender, no hepatosplenomegaly Inspection/Auscultation: abdomen normal to inspection and normal bowel sounds Percussion/Palpation: abdomen soft Musculoskeletal no cyanosis or clubbing, extremities motor strength 5/5 Extremities: extremities normal to inspection (2+ pitting edema BLEs (improved, per patient)) Skin no rashes, warm and dry Neurologic + focal motor deficit (Right hemiparesis secondary to old stroke) Psychiatric A+Ox3, euthymic affect Orientation: alert and oriented x 3 Lymphatic no cervical or axillary lymphadenopathy Discharge Data Allergies Allergy/AdvReac Type Severity Reaction Status Date / Time No Known Allergies Allergy Unverified 10/25/18 14:08 Consultations 10/25/18 12:55 ED Decision to Admit Stat 10/25/18 16:06 Consult Cardiology Routine Consult Case Management - Discharge Planning Routine 10/26/18 10:28 Consult Infectious Diseases Routine 10/29/18 10:26 Consult Anesthesiology Routine Procedures Performed Operation Date: 10/30/18 07:45 Actual Procedures p Transesophageal Echo w/Anesthesia - Miki Ballard DO Hospital Course (1) Bacteremia due to Gram-positive bacteria: Possible related to Cellulitis Blood cx positive for group C beta strep Received one dose of IV vanco that changed to dapto and Zosyn ID on board-appreciate recommendation Abx changed to IV Rocephin Repeat blood cx no growth TENNILLE done due to concern regarding possible prosthetic valve endocarditis showed no evidence for Endocarditis We will continue antibiotic for a total of 4 weeks Weekly CBC and CMP will be needed while on antibiotic (2) Cellulitis of right lower extremity: Blood cx positive for group C beta strep Received one dose of IV vanco and Zosyn that changed to dapto, then Rocephin ID on board, Will continue Rocephin IV for now TENNILLE did not show any endocarditis IV antibiotic for a total of 4 weeks (3) Severe sepsis: Secondary to right lower extremity cellulitis He has a cellulitis on the RLE and new GPC bacteremia. Daptomycin switched to Vancomycin overnight. Continued on Zosyn. Appreciate ID input and recommendation Antibiotic has been switched to intravenous Rocephin which will be continued for a total of 4 weeks Has PICC line and and is working Awaiting placement to [facility] (4) Right hemiparesis: Ambulatory dysfunction secondary Secondary to old stroke Mobility is limited PT evaluation recommended for rehab before going back to home Awaiting to be accepted to [facility] (5) Acute metabolic encephalopathy: Resolved (6) Heart failure, diastolic, with acute decompensation: CXR showed evidence of mild congestive failure/fluid overload. No evidence of lobar consolidation Lasix was on hold due to worsening renal function CXR done today showed interval progression of the moderate pulmonary edema and small bilateral pleural effusions. Cardiology recommended to continue lasix 80mg BID on discharge Monitor BMP (7) Acute renal failure superimposed on stage 3 chronic kidney disease: Suspect intravascular depletion in the setting of sepsis. Creatinine continue to improve today from 2.9 --> 2.2 --> 1.8 Lasix resumed Creatinine is improved and is 1.74 as of 11/01 seems to be better than his baseline (8) T2DM (type 2 diabetes mellitus): Hgba1c 9.2 on 10/26/18 Pharmacy on board for glycemic management Continue monitor BS (9) History of endocarditis: Has a mechanical aortic valve present with a h/o endocarditis. Mechanical prosthesis remains competent at this time as per cardiology Very high risk for valve replacement due to morbidities and renal 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. TENNILLE done today showed no Endocarditis (10) Chronic atrial fibrillation: Rate improves Continue metoprolol Heparin drip discontinued On coumadin , INR 3.6 today Continue monitor in tele monitor (11) Respiratory failure: Acute respiratory failure with hypoxia Continue Bipap at night Continue oxygen supplement Symptomatically better no desaturation (12) DVT prophylaxis: On coumadin with INR 3.6 today CODE STATUS DNR/DNI Disposition He has decreased mobility due to old CVA and right hemiparesis PT recommended rehab but the patient is going to go home Discussed with the patient and he mentioned that he would be better off at home We will discuss with Lorraine before discharge tomorrow Like to be discharged to [facility] when accepted Total Time Total Time Spent Total Time Spent (In Minutes): 35 minutes Total Time Includes: Examination of the Patient, Discharge Planning, Medication Reconciliation and Communication With Other Providers Discharge Plan Discharge Items Patient Disposition: Transfer Assisted Fac Reason For Visit: SEPSIS,RLE CELLULITIS,ACUTE DECOMP CHF Discharge Diagnosis: Gram-positive bacteremia likely secondary to right leg cellulitis, right hemiparesis secondary to old stroke, chronic A. fib, diastolic heart failure, status post mechanical aortic valve replacement with history of endocarditis. Condition: Fair Discharge Goals: Decrease discomfort, Improve function, Increase independence and Improve nutritional status Activity: Resume your previous activity Non-emergency contact: Primary Care Provider Call non-emergency contact if: you have any medication questions and your symptoms worsen Follow-up/Referrals: Alise Buck MD [Primary Care Provider] - (Please make an appointment with your primary care physician within 1 week following discharge from the facility.) Diet: Carb Consistent or DM2, Heart Healthy and Low Sodium (2gm) Fluids: 1500ml (6 cups) Addtl Provider Instructions: New medications: Ceftriaxone 2 g IV daily for 22 days. Will need to check CBC and comprehensive metabolic panel weekly as long as on ceftriaxone. Toprol-XL 50 mg in the morning and 20 5 in the evening Lisinopril has been discontinued Need to continue with Coumadin Prescriptions: New metoprolol succinate 50 mg Tablet Extended Release 24 Hr 50 mg PO DAILY 30 Days Qty: 30 RF: 0 metoprolol succinate [Toprol XL] 25 mg tablet extended release 24 hr 25 mg PO PM Qty: 30 RF: 0 ceftriaxone 2 gram recon soln 2 gm IV DAILY Qty: 22 RF: 0 Continued atorvastatin 40 mg Tablet 40 mg PO QAM RF: 0 nitroglycerin 0.4 mg Tablet, Sublingual 0.4 mg Sublingual DIRECTED PRN (Reason: Chest Pain) RF: 0 docusate sodium 100 mg Capsule 100 mg PO AMHS RF: 0 folic acid 1 mg Tablet 1 mg PO QAM RF: 0 terazosin 2 mg Capsule 2 mg PO HS RF: 0 warfarin 2.5 mg tablet 2.5 mg PO DAILY RF: 0 spironolactone 25 mg tablet 12.5 mg PO QAM RF: 0 levothyroxine [Synthroid] 75 mcg tablet 75 mcg PO QAM RF: 0 furosemide 80 mg tablet 80 mg PO BID RF: 0 ferrous sulfate 325 mg (65 mg iron) Tablet 325 mg PO QAM RF: 0 aspirin [Aspirin Childrens] 81 mg Tablet,Chewable 0.5 tab PO AMHS RF: 0 Lantus Solostar U-100 Insulin 100 unit/mL (3 mL) insulin pen 20 units SQ AMHS RF: 0 Changed isosorbide mononitrate 60 mg Tablet Extended Release 24 Hr 60 mg PO QAM Qty: 0 RF: 0 insulin lispro [Humalog KwikPen Insulin] 100 unit/mL insulin pen 8 unit subcut TID Qty: 0 RF: 0 Discontinued lisinopril 40 mg Tablet 40 mg PO QAM RF: 0 metoprolol tartrate 25 mg tablet 37.5 mg PO AMHS RF: 0 Stand-Alone Forms: [facility] Discharge Orders: Discharge Order (Routine); Ordered 11/02/18 Ordered By: Rossy Reyes Skilled Items Patient informed of condition?: Yes DNR: Yes Discharge Level of Care: Skilled Communicable Disease: No Discharge Prognosis: Stable Admission Data Admit Date/Time: 10/25/18 14:12 Attending Provider: Rossy Reyes Admit Provider: Perri Casas Primary Care Provider: Alise Buck Other Providers: Radames Bautista ; Perri Casas ; Heide Juarez ; Yuli Jha ; Gaye Gonsalez ; Brittany Flores ; Ramonita Zhao ; Millie Riojas ; Sanna Avalos ; Humberto Anne ; Flo Talbot ; Andrea Dunn ; Farhat Haley ; Cindy Haley ; Donovan Mills ; Heide Kaiser ; Mika Stanley ; Heber Jovel ; Marty Camacho ; Larry Walsh ; Lucio Bautista ; Dinorah Perez ; Zana Escobedo ; Itzel Huang ; Yaritza Escobedo ; [place] ; Caitlin Perkins ; Brian Stanford ; Raquel Kaufman ; Hawa Leal ; Miki Grant ; Lexi Amaya ; Ryann Adkins ; Jo Hilario ; Kiara Riggs ; Danish Riggs V ; Eugene Ennis ; Brittany Dawkins ; Sabas Claros ; Ronen Guerrero ; Ban Holly ; Karina Tinajero ; Reina Dawkins ; Danish Weathers ; Rey Gonzales ; Ligia Pope ; Jo Sams ; Andrea Mcduffie ; Barbara Mcgovern. ; Heber Pickens ; Yeyo Bautista ; Danielle Neves ; Tony Lindsey ; Amee Pate Service: Intensive Care Unit Other Interventions: Discharge Summary Assessment (RN) Last Done: 11/02/18 13:48 DC Date/Time DO NOT enter until pt leaves facility: 11/02/18 17:35
== END 2018-11-02 17:35 | DRG 871 ==
LOC: ED 11:46 → SUATTDRO 14:12 → 2S 14:12
DX: I69.351 Hemiplegia and hemiparesis following cerebral infarction affecting right dominant side; L03.115 Cellulitis of right lower limb; J96.01 Acute respiratory failure with hypoxia; Z79.4 Long term (current) use of insulin; R65.20 Severe sepsis without septic shock; I50.33 Acute on chronic diastolic (congestive) heart failure; Z66 Do not resuscitate; A41.9 Sepsis, unspecified organism; E11.22 Type 2 diabetes mellitus with diabetic chronic kidney disease; F17.290 Nicotine dependence, other tobacco product, uncomplicated; Z95.1 Presence of aortocoronary bypass graft; N18.9 Chronic kidney disease, unspecified; I25.10 Atherosclerotic heart disease of native coronary artery without angina pectoris; E11.51 Type 2 diabetes mellitus with diabetic peripheral angiopathy without gangrene; N17.9 Acute kidney failure, unspecified; Z79.01 Long term (current) use of anticoagulants; E66.01 Morbid (severe) obesity due to excess calories; Z68.41 Body mass index [BMI] 40.0-44.9, adult; I48.2 Chronic atrial fibrillation; G93.41 Metabolic encephalopathy; I48.0 Paroxysmal atrial fibrillation; E87.2 Acidosis; I44.7 Left bundle-branch block, unspecified

== ENCOUNTER 2018-12-06 19:42 | Inpatient (IN) ==
[2018-12-06] MEDS ORDERED: ACETAMINOPHEN 1,000 MG/100 ML VIAL IV STA (19:53)
--- NOTE | 2018-12-06 20:04 | Emergency Department Note ---
Entered by Denice Carbajal acting as a scribe for Philipp Galloway DO History of Present Illness General Chief complaint: Fall Stated complaint: FALL Time Seen by Provider: 12/06/18 19:42 Source: patient and other (nursing staff) History of Present Illness Onset (ago): hour(s) (earlier today) Location: head, upper extremity and lower extremity Pain Consistency: + other (after a fall) Quality: + other (fall) Associated symptoms: + other (Positive fever of 38.4. ); no shortness of breath The patient is a 78 year old male who presents to the ED for a fall that occurred earlier today. As per nursing staff, the patient fell earlier today in the shower. EMS went to the scene and the patient had a change in mental status and became confused which is new. Nursing staff states the patient has a fever of 38.4. When asked the location, the patient states he is "here." Pt denies any SOB. Home Medications Home Medications Medication Instructions Recorded Confirmed Type atorvastatin 40 mg PO QAM 02/23/18 12/06/18 History docusate sodium 100 mg PO AMHS 02/23/18 12/06/18 History folic acid 1 mg PO QAM 02/23/18 12/06/18 History nitroglycerin 0.4 mg SUBLINGUAL DIRECTED PRN 02/23/18 12/06/18 History terazosin 2 mg PO HS 02/24/18 12/06/18 History Lantus Solostar U-100 Insulin 24 units SQ AMHS 07/10/18 12/06/18 History aspirin [Aspirin Childrens] 0.5 tab PO AMHS 07/10/18 12/06/18 History ferrous sulfate 325 mg PO QAM 10/25/18 12/06/18 History levothyroxine [Synthroid] 75 mcg PO QAM 10/25/18 12/06/18 History spironolactone 12.5 mg PO QAM 10/25/18 12/06/18 History warfarin 2.5 mg PO PM 10/25/18 12/06/18 History isosorbide mononitrate 60 mg PO QAM #0 tab 11/02/18 12/06/18 Rx insulin lispro [Humalog KwikPen 10 unit SUBCUT TID 12/06/18 12/06/18 History Insulin] metoprolol succinate 50 mg PO QAM 12/06/18 12/06/18 History metoprolol succinate [Toprol XL] 25 mg PO HS 12/06/18 12/06/18 History terazosin 2 mg PO HS 12/06/18 12/06/18 History Allergies Allergy/AdvReac Type Severity Reaction Status Date / Time No Known Allergies Allergy Unverified 12/06/18 20:49 Past Med/Surg History Medical History Coronary artery disease (Chronic) T2DM (type 2 diabetes mellitus) (Chronic) HTN (hypertension) (Chronic) History of endocarditis (Chronic) 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 weeks 05/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 LBBB (left bundle branch block) (Chronic) PVD (peripheral vascular disease) (Chronic) 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 (Chronic) 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) INR goal 2-3 Chronic atrial fibrillation (Chronic) Cerebrovascular disease (Chronic) Chronic diastolic heart failure (Chronic) ASCVD (arteriosclerotic cardiovascular disease) (Chronic) Septicemia due to group B Streptococcus (Resolved) Hypothyroidism (Chronic) Hyperlipidemia (Chronic) PAF (paroxysmal atrial fibrillation) (Chronic) Diabetes type 2, uncontrolled (Chronic) Surgical History History of cardiac catheterization (Chronic) Nonobstructive CAD S/P aortic valve replacement (Chronic) Family History Other Unknown family medical history Social History Preferred Language: Wolof Communication Ability: Effective [employer] Required: No Beliefs That Will Affect Care: None marital status: Current Living Situation: Spouse Current Living Situation Comment: Lives with and aunt Feels Safe at Home: Yes Safety Concerns: Feels Safe At This Time Smoking Status: Former smoker Tobacco Type: cigars ; Cigarettes Per Day: 1 cigar per day ; Do You Dip or Chew Tobacco: No ; Second Hand Exposure: No ; Hx Alcohol Use: No Hx Substance Use: No Review of Systems See HPI for pertinent positives & negatives. and A total of 10 systems reviewed and were otherwise negative Physical Exam Vital Signs Vital Signs - 24 hr 12/06/18 19:46 12/06/18 19:56 12/06/18 21:03 Temperature 38.4 C H 37.6 C H Temperature Source Oral Oral Sepsis Recent Fever Within 48 Hours No Sepsis Action Taken by Nursing No Action Required Pulse Rate 94 H Pulse Rate [Apical] 84 Respiratory Rate 27 H 22 Respiratory Effort / Characteristics Non-Labored Spontaneous Respiratory Depth Normal Blood Pressure 130/84 Blood Pressure [Right Arm] 104/78 Blood Pressure Mean 99 Blood Pressure Mean [Right Arm] 86 Pulse Oximetry 94 94 95 Oxygen Delivery Method Room Air Room Air Room Air 12/06/18 22:24 Temperature Temperature Source Sepsis Recent Fever Within 48 Hours Sepsis Action Taken by Nursing Pulse Rate Pulse Rate [Apical] 87 Respiratory Rate 20 Respiratory Effort / Characteristics Non-Labored Spontaneous Respiratory Depth Normal Blood Pressure Blood Pressure [Right Arm] 131/77 Blood Pressure Mean Blood Pressure Mean [Right Arm] 95 Pulse Oximetry 92 Oxygen Delivery Method Room Air GENERAL: Patient is awake alert in no acute distress patient is resting comfortably and showing no signs of anxiety EYES: The conjunctivae are clear. The pupils are round and reactive. EARS, NOSE, MOUTH AND THROAT: The nose is without any evidence of any deformity. Mucous membranes are moist tongue is midline NECK: The neck is nontender and supple. RESPIRATORY: Diminished breath sounds were noted throughout. There are rales in the left lung field. CARDIOVASCULAR: Regular rate and rhythm was noted to auscultation. There was a metallic click noted to auscultation. GASTROINTESTINAL: The abdomen is soft. Bowel sounds are present in all quadran ts. Abdomen is nontender MUSCULOSKELETAL/EXTREMITIES: There is no evidence of gross deformity full range of motion is noted in the hips and shoulders SKIN: Pedal edema with venous stasis changes are noted in both lower extremity's. NEUROLOGIC: Patient is asleep but awakens to verbal commands. He is oriented to person place and situation. Course 1951: Past medical records reviewed. The patient was evaluated in room C1. A complete history and physical exam was performed. 0035: [facility] the [facility] The patient will be evaluated by him for further management. Administered Medications Aspirin (Aspirin Chew) 40.5 mg PO BID JOYCE Stop: 01/06/19 08:59 Last Admin: 12/07/18 07:47 Dose: 40.5 mg Documented by: [id number] Atorvastatin Calcium (Lipitor) 40 mg PO QAM [facility] Stop: 01/06/19 08:59 Last Admin: 12/07/18 07:46 Dose: 40 mg Documented by: [id number] Docusate Sodium (Colace) 100 mg PO BID [facility] Stop: 01/06/19 08:59 Last Admin: 12/07/18 07:47 Dose: 100 mg Documented by: [id number] Doxycycline Hyclate (Vibramycin) 100 mg PO Q12H [facility]; Protocol Stop: 12/17/18 17:59 Last Admin: 12/07/18 17:42 Dose: 100 mg Documented by: [id number] Ferrous Sulfate (Feosol) 325 mg PO DAILY@0700 [facility] Stop: 01/06/19 06:59 Last Admin: 12/07/18 06:49 Dose: 325 mg Documented by: [id number] Folic Acid (Folvite) 1 mg PO QAM [facility] Stop: 01/06/19 08:59 Last Admin: 12/07/18 07:47 Dose: 1 mg Documented by: [id number] Furosemide (Lasix) 80 mg PO BID17 [facility] Stop: 01/06/19 17:59 Last Admin: 12/07/18 18:17 Dose: 80 mg Documented by: [id number] Heparin Sodium/Dextrose (Heparin Sodium/Dextrose) 25,000 units in 500 mls @ 20 mls/hr IV .Q24H [facility]; Protocol Stop: 01/06/19 06:14 Last Titration: 12/07/18 13:31 Dose: 1,000 units/hr, 20 mls/hr Documented by: [id number] Cosigned by: [id number] Titration: 12/07/18 07:14 Dose: 1,000 units/hr, 20 mls/hr Documented by: [id number] Cosigned by: [id number] Admin: 12/07/18 06:14 Dose: 1,000 units/hr, 20 mls/hr Documented by: [id number] Cosigned by: [id number] Insulin Aspart (Novolog Flexpen) 0 units SC ACHS [facility] Stop: 01/06/19 07:29 Last Admin: 12/07/18 17:20 Dose: 4 units Documented by: [id number] Cosigned by: [id number] Admin: 12/07/18 12:28 Dose: 2 units Documented by: [id number] Cosigned by: [id number] Admin: 12/07/18 08:31 Dose: 1 units Documented by: [id number] Cosigned by: [id number] Insulin Glargine (Lantus Solostar Pen) 15 units SQ BID [facility] Stop: 01/06/19 08:59 Last Admin: 12/07/18 08:31 Dose: 15 units Documented by: [id number] Cosigned by: [id number] Isosorbide Mononitrate (Imdur Extended Rel) 60 mg PO QAM [facility] Stop: 01/06/19 08:59 Last Admin: 12/07/18 07:46 Dose: 60 mg Documented by: [id number] Levothyroxine Sodium (Synthroid) 75 mcg PO DAILYBB [facility] Stop: 01/06/19 06:29 Last Admin: 12/07/18 05:41 Dose: 75 mcg Documented by: [id number] Metoprolol Succinate (Toprol Xl) 25 mg PO [facility] Stop: 01/06/19 02:51 Last Admin: 12/07/18 04:11 Dose: 25 mg Documented by: [id number] Metoprolol Su[facility]inate ([facility] Xl) [facility] Stop: 01/06/19 06:44 Last Admin: 12/07/18 06:46 Dose: 50 mg Documented by: [id number] Terazosin HCl (Hytrin) 2 mg PO [facility] Stop: 01/06/19 02:51 Last Admin: 12/07/18 04:11 Dose: 2 mg Documented by: [id number] Warfarin Sodium (Coumadin) 5 mg PO DAILY@1600 [facility] Stop: 01/06/19 15:59 Last Admin: 12/07/18 16:12 Dose: 5 mg Documented by: [id number] Discontinued Medications Acetaminophen (Ofirmev) 1,000 mg in 100 mls @ 400 mls/hr IV NOW STA Stop: 12/06/18 20:07 Last Infusion: 12/06/18 20:13 Dose: 0 mls/hr Documented by: [id number] Admin: 12/06/18 19:59 Dose: 400 mls/hr Documented by: [id number] Sodium Chloride (Nss 1000ml) 500 mls @ 999 mls/hr IV .Q31M ONE Stop: 12/06/18 21:25 Last Infusion: 12/06/18 21:33 Dose: 0 mls/hr Documented by: [id number] Admin: 12/06/18 21:01 Dose: 999 mls/hr Documented by: [id number] Ceftriaxone Sodium (Rocephin) 1,000 mg in 50 mls @ 100 mls/hr IV NOW STA Stop: 12/07/18 01:05 Last Infusion: 12/07/18 01:24 Dose: 0 mls/hr Documented by: [id number] Admin: 12/07/18 00:52 Dose: 100 mls/hr Documented by: [id number] Doxycycline Hyclate 100 mg/ (Dextrose) 110 mls @ 50 mls/hr IV NOW STA Stop: 12/07/18 03:38 Last Infusion: 12/07/18 05:38 Dose: 0 mls/hr Documented by: [id number] Admin: 12/07/18 03:23 Dose: 50 mls/hr Documented by: [id number] Lactated Ringer's (Lr) 1,000 mls @ 60 mls/hr IV .[id number] ONE Stop: 12/07/18 19:31 Last Infusion: 12/07/18 06:48 Dose: 0 mls/hr Documented by: [id number] Admin: 12/07/18 03:26 Dose: 60 mls/hr Documented by: [id number] Warfarin Sodium (Coumadin) Confirm Administered Dose 5 mg PO .STK-MED ONE Stop: 12/07/18 01:27 Last Admin: 12/07/18 01:30 Dose: 5 mg Documented by: [id number] Medical Decision Making Differential Diagnosis Differential diagnosis: Etiologies such as metabolic, infection, hypo/hyperglycemia, electrolyte abnormalities, cardiac sources, intracerebral event, toxicologic, neurologic, as well as others were entertained. Medical Records Attestation: I reviewed the patient's medical records. Home Medications Current Medication List: was personally reviewed by me Laboratory Data Attestation: I reviewed the patient's lab results. Result diagrams: 12/07/18 05:15 12/07/18 05:15 Lab Results 12/06/18 12/06/18 12/06/18 Range/Units 19:55 19:55 19:55 WBC 13.61 H (4.8-10.8) K/uL RBC 3.84 L (4.7-6.1) M/uL Hgb 11.0 L (14.0-18.0) g/dL Hct 33.4 L (42-52) % MCV 87.0 (80-100) fL MCH 28.6 (25-34) pg MCHC 32.9 (32-36) g/dL RDW Std Deviation 58.7 H (36.4-46.3) fL RDW Coeff of Elizabeth 18.5 H (11.5-14.5) % Plt Count 124 L (130-400) K/uL MPV 11.1 H (7.4-10.4) fL Immature Gran % (Auto) 0.3 % Neut % (Auto) 84.1 % Lymph % (Auto) 9.3 % Nelson % (Auto) 5.9 % Eos % (Auto) 0.1 % Baso % (Auto) 0.3 % Immature Gran # (Auto) 0.04 H (0.00-0.02) K/uL Neut # (Auto) 11.46 H (1.4-6.5) K/uL Lymph # (Auto) 1.26 (1.2-3.4) K/uL Nelson # (Auto) 0.80 H (0.11-0.59) K/uL Eos # (Auto) 0.01 (0-0.5) K/uL Baso # (Auto) 0.04 (0-0.2) K/uL ESR (0-14) mm/hr PT Cancelled INR Cancelled APTT Cancelled PTT Ratio Cancelled VBG pH (7.36-7.41) VBG pCO2 (38-50) mmHg VBG pO2 mmHg VBG HCO3 mmol/L VBG O2 Saturation % VBG Base Excess mEq/L Barometric Pressure mm/Hg Sodium 142 (136-145) mmol/L Potassium 3.7 (3.5-5.1) mmol/L Chloride 108 H (98-107) mmol/L Carbon Dioxide 25 (21-32) mmol/L Anion Gap 9.0 (3-11) BUN 32 H (7-18) mg/dl Creatinine 2.08 H (0.6-1.4) mg/dl Est Cr Clr Drug Dosing 36.7 ml/min Est GFR ( Amer) 34.3 Est GFR (Non-Af Amer) 29.6 BUN/Creatinine Ratio 15.2 (10-20) Glucose 87 (70-99) mg/dl Lactate (0.4-2.0) mmol/L Calcium 8.7 (8.5-10.1) mg/dl Magnesium 1.9 (1.8-2.4) mg/dl Total Bilirubin 1.0 (0.2-1) mg/dl AST 20 (15-37) U/L ALT 19 (12-78) U/L Alkaline Phosphatase 82 (45-117) U/L Troponin I 0.016 (0-0.045) ng/ml C-Reactive Protein 10.50 H (0-0.29) mg/dl Total Protein 7.6 (6.4-8.2) gm/dl Albumin 2.8 L (3.4-5.0) gm/dl Globulin 4.8 H (2.5-4.0) gm/dl Albumin/Globulin Ratio 0.6 L (0.9-2) Procalcitonin (0-0.5) ng/ml Urine Color Urine Appearance (Clear) Urine pH (4.5-7.5) Ur Specific Britton (1.000-1.030) Urine Protein (Negative) Urine Glucose (UA) (Negative) Urine Ketones (Negative) Urine Blood (Negative) Urine Nitrite (Negative) Urine Bilirubin (Negative) Urine Urobilinogen (Negative) Ur Leukocyte Esterase (Negative) Urine WBC (Auto) (0-5) /hpf Urine RBC (Auto) (0-4) /hpf U Hyaline Cast (Auto) (0-5) /lpf U Epithel Cells (Auto) (0-5) /lpf Urine Bacteria (Auto) (Negative) 12/06/18 12/06/18 12/06/18 Range/Units 19:55 19:55 20:30 WBC (4.8-10.8) K/uL RBC (4.7-6.1) M/uL Hgb (14.0-18.0) g/dL Hct (42-52) % MCV (80-100) fL MCH (25-34) pg MCHC (32-36) g/dL RDW Std Deviation (36.4-46.3) fL RDW Coeff of Elizabeth (11.5-14.5) % Plt Count (130-400) K/uL MPV (7.4-10.4) fL Immature Gran % (Auto) % Neut % (Auto) % Lymph % (Auto) % Nelson % (Auto) % Eos % (Auto) % Baso % (Auto) % Immature Gran # (Auto) (0.00-0.02) K/uL Neut # (Auto) (1.4-6.5) K/uL Lymph # (Auto) (1.2-3.4) K/uL Nelson # (Auto) (0.11-0.59) K/uL Eos # (Auto) (0-0.5) K/uL Baso # (Auto) (0-0.2) K/uL ESR 79 H (0-14) mm/hr PT INR APTT PTT Ratio VBG pH (7.36-7.41) VBG pCO2 (38-50) mmHg VBG pO2 mmHg VBG HCO3 mmol/L VBG O2 Saturation % VBG Base Excess mEq/L Barometric Pressure mm/Hg Sodium (136-145) mmol/L Potassium (3.5-5.1) mmol/L Chloride (98-107) mmol/L Carbon Dioxide (21-32) mmol/L Anion Gap (3-11) BUN (7-18) mg/dl Creatinine (0.6-1.4) mg/dl Est Cr Clr Drug Dosing ml/min Est GFR ( Amer) Est GFR (Non-Af Amer) BUN/Creatinine Ratio (10-20) Glucose (70-99) mg/dl Lactate 1.3 (0.4-2.0) mmol/L Calcium (8.5-10.1) mg/dl Magnesium (1.8-2.4) mg/dl Total Bilirubin (0.2-1) mg/dl AST (15-37) U/L ALT (12-78) U/L Alkaline Phosphatase (45-117) U/L Troponin I (0-0.045) ng/ml C-Reactive Protein (0-0.29) mg/dl Total Protein (6.4-8.2) gm/dl Albumin (3.4-5.0) gm/dl Globulin (2.5-4.0) gm/dl Albumin/Globulin Ratio (0.9-2) Procalcitonin 0.52 H (0-0.5) ng/ml Urine Color Urine Appearance (Clear) Urine pH (4.5-7.5) Ur Specific Britton (1.000-1.030) Urine Protein (Negative) Urine Glucose (UA) (Negative) Urine Ketones (Negative) Urine Blood (Negative) Urine Nitrite (Negative) Urine Bilirubin (Negative) Urine Urobilinogen (Negative) Ur Leukocyte Esterase (Negative) Urine WBC (Auto) (0-5) /hpf Urine RBC (Auto) (0-4) /hpf U Hyaline Cast (Auto) (0-5) /lpf U Epithel Cells (Auto) (0-5) /lpf Urine Bacteria (Auto) (Negative) 12/06/18 12/06/18 12/06/18 Range/Units 20:30 20:35 23:53 WBC (4.8-10.8) K/uL RBC (4.7-6.1) M/uL Hgb (14.0-18.0) g/dL Hct (42-52) % MCV (80-100) fL MCH (25-34) pg MCHC (32-36) g/dL RDW Std Deviation (36.4-46.3) fL RDW Coeff of Elizabeth (11.5-14.5) % Plt Count (130-400) K/uL MPV (7.4-10.4) fL Immature Gran % (Auto) % Neut % (Auto) % Lymph % (Auto) % Nelson % (Auto) % Eos % (Auto) % Baso % (Auto) % Immature Gran # (Auto) (0.00-0.02) K/uL Neut # (Auto) (1.4-6.5) K/uL Lymph # (Auto) (1.2-3.4) K/uL Nelson # (Auto) (0.11-0.59) K/uL Eos # (Auto) (0-0.5) K/uL Baso # (Auto) (0-0.2) K/uL ESR (0-14) mm/hr PT 17.7 H INR 1.8 H APTT 34.5 H PTT Ratio 1.3 VBG pH 7.48 H (7.36-7.41) VBG pCO2 35 L (38-50) mmHg VBG pO2 46 mmHg VBG HCO3 26 mmol/L VBG O2 Saturation 82.9 % VBG Base Excess 2.2 mEq/L Barometric Pressure 734.4 mm/Hg Sodium (136-145) mmol/L Potassium (3.5-5.1) mmol/L Chloride (98-107) mmol/L Carbon Dioxide (21-32) mmol/L Anion Gap (3-11) BUN (7-18) mg/dl Creatinine (0.6-1.4) mg/dl Est Cr Clr Drug Dosing ml/min Est GFR ( Amer) Est GFR (Non-Af Amer) BUN/Creatinine Ratio (10-20) Glucose (70-99) mg/dl Lactate (0.4-2.0) mmol/L Calcium (8.5-10.1) mg/dl Magnesium (1.8-2.4) mg/dl Total Bilirubin (0.2-1) mg/dl AST (15-37) U/L ALT (12-78) U/L Alkaline Phosphatase (45-117) U/L Troponin I (0-0.045) ng/ml C-Reactive Protein (0-0.29) mg/dl Total Protein (6.4-8.2) gm/dl Albumin (3.4-5.0) gm/dl Globulin (2.5-4.0) gm/dl Albumin/Globulin Ratio (0.9-2) Procalcitonin (0-0.5) ng/ml Urine Color Yellow Urine Appearance Clear (Clear) Urine pH 5.0 (4.5-7.5) Ur Specific Britton 1.015 (1.000-1.030) Urine Protein Negative (Negative) Urine Glucose (UA) Negative (Negative) Urine Ketones Negative (Negative) Urine Blood Trace H (Negative) Urine Nitrite Negative (Negative) Urine Bilirubin Negative (Negative) Urine Urobilinogen Negative (Negative) Ur Leukocyte Esterase Trace H (Negative) Urine WBC (Auto) 1-5 (0-5) /hpf Urine RBC (Auto) 0-4 (0-4) /hpf U Hyaline Cast (Auto) 1-5 (0-5) /lpf U Epithel Cells (Auto) 5-10 H (0-5) /lpf Urine Bacteria (Auto) Negative (Negative) Imaging Data Radiologist's Impression: Radiology results as stated below per my review and the radiologist's interpretation: CT abd pelvis wo con CLINICAL HISTORY: 78 years-old Male presenting with fall. TECHNIQUE: Multidetector CT of the abdomen and pelvis was performed without the use of intravenous contrast. IV contrast: None. One or more dose lowering techniques were used consistent with the principles of ALARA (as low as reasonably achievable), including automatic exposure control, mA or kV adjustment to individual patient size, and/or use of iterative reconstruction. COMPARISON: None. CT DOSE (mGy.cm): The estimated cumulative dose is 3594.75. FINDINGS: Head Of Data topogram: Median sternotomy wires and prosthetic aortic valve. Cardiomegaly. Image quality is degraded by body habitus and positioning of the arms over the abdomen. Lung bases: Multichamber enlargement of the heart. Coronary artery calcification. Prosthetic aortic valve. No pericardial or pleural effusion. Extensive bibasilar bandlike opacities with peribronchial vascular bundle thickening. Subsegmental endobronchial debris may be present. Liver: Normal morphology. Normal density. Biliary: No gross biliary ductal dilatation allowing for noncontrast technique. Gallstones or sludge suspected. Pancreas: Normal noncontrast appearance. Spleen: Normal noncontrast appearance. Adrenal glands: Normal noncontrast appearance. Kidneys and ureters: Macroscopic fat-containing lesion arising from the lower pole of the left kidney measuring 1.5 cm compatible with angiomyolipoma. A suspected smaller angiomyolipoma at the upper pole the left kidney. No nephrolithiasis or hydronephrosis. Ureters nondistended. Bladder: Circumferential bladder wall thickening. Pelvic organs: Prostate enlargement likely secondary to benign prostatic hyperplasia. Bowel: Limited diverticulosis of the proximal sigmoid and distal descending colon without wall thickening or pericolonic inflammatory change. The appendix is normal. No bowel obstruction. Peritoneal cavity: No free fluid or intraperitoneal gas. Lymph nodes: No gross lymphadenopathy allowing for noncontrast technique. Vasculature: Atherosclerosis of the abdominal aorta, which demonstrates mild infrarenal ectasia measuring 3.1 cm in diameter. Abdominal wall: Fat-containing left inguinal hernia. Musculoskeletal: Degenerative changes of the spine. Erosive changes of the inferior endplate of L1 with a prominent Schmorl's node, likely on a chronic and degenerative basis. No acute osseous injury. IMPRESSION: 1. Allowing for noncontrast technique, no acute intra-abdominal injury. 2. Suspected cholelithiasis versus biliary sludge. 3. Chronic bladder outlet obstruction secondary to prostatomegaly. 4. 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 5. Limited diverticulosis. 6. Peribronchovascular bundle thickening with bandlike opacities in the lung bases and potentially subsegmental endobronchial debris. These findings could relate to congestive change or chronic aspiration with superimposed atelectasis. Electronically signed by: Nasir Hernandez M.D. 12/06/2018 8:[address] cervical spine wo con CLINICAL HISTORY: 78 years-old Male presenting with fall. TECHNIQUE: Multidetector CT of the cervical spine was performed without the use of intravenous contrast. IV contrast: None. One or more dose lowering techniques were used consistent with the principles of ALARA (as low as reasonably achievable), including automatic exposure control, mA or kV adjustment to ind ividual patient size, and/or use of iterative reconstruction. COMPARISON: None. CT DOSE (mGy.cm): The estimated cumulative dose is 3594.75 mGy.cm. FINDINGS: Head Of Data topogram: Median sternotomy wires and prosthetic aortic valve. Normal cervical lordosis. Vertebral bodies maintain normal height and alignment apart from mild height loss at C5 and C6, which is likely on a degenerative and/or osteopenic basis. There are degrees of intervertebral disc height loss most severe at C5-6 and C6-7, where there is the greatest degree of degenerative change. Moderate posterior spondylitic spurring at these levels resulting in osseous spinal canal narrowing. Mild facet arthropathy and very degrees of un covertebral hypertrophy result in osseous neural foraminal narrowing most prominently in the lower cervical spine. Advanced degenerative changes of the atlantodental articulation. No acute fracture or subluxation. Atherosclerosis. Paraspinal musculature normal. Focal spiculated nodule suspected at the left apex versus pleural parenchymal scarring. IMPRESSION: 1. Spiculated left apical nodule versus pleural parenchymal scarring. Further evaluation with an nonurgent chest CT is warranted. 2. No acute osseous injury. 3. Multilevel degenerative changes. Electronically signed by: Nasir Hernandez M.D. 12/06/2018 8:30 PM XR chest 1V portable CLINICAL HISTORY: 78 years-old Male presenting with Sepsis. TECHNIQUE: Portable upright AP view of the chest was obtained. COMPARISON: 10/31/2018. FINDINGS: Median sternotomy wires and prosthetic aortic valve. Cardiac silhouette enlarged. Atherosclerosis of the aortic arch. Mild pulmonary vascular prom inence, which is decreased from prior. Decreased perihilar and bibasilar opacities with improved aeration of the lung bases. Some bibasilar opacity persists. No large pneumothorax. Degenerative changes of the thoracic spine. Chronic posttraumatic deformity of the right humeral neck. Upper abdomen poorly evaluated given body habitus and portable technique. IMPRESSION: 1. Improved aeration of the lung bases with decreased volume overload and congestive change in comparison to prior. 2. Minimal bibasilar atelectasis persists. No focal infiltrate characteristic of pneumonia. 3. Cardiomegaly. Electronically signed by: Nasir Hernandez M.D. 12/06/2018 9:[address] head/brain wo con CLINICAL HISTORY: 78 years-old Male presenting with fall. TECHNIQUE: Multidetector CT imaging of the head was performed without the use of intravenous contrast. IV contrast: None. One or more dose lowering techniques were used consistent with the principles of ALARA (as low as reasonably achievable), including automatic exposure control, mA or kV adjustment to i ndividual patient size, and/or use of iterative reconstruction. COMPARISON: None. CT DOSE (mGy.cm): The estimated cumulative dose is 3594.75. FINDINGS: Head Of Data topogram: Median sternotomy wires and prosthetic valve. Cardiomegaly. Proportional ventricular and sulcal prominence, likely age-related parenchymal volume loss. Extra-axial dilatation of the atrium of the left lateral ventricle due to the presence of the chronic left parietal lobe infarct. No hemorrhage. Brain parenchyma normal in appearance with preserved brown-white differentiation. No acute territorial infarct. No mass effect or midline shift. No extra-axial fluid collection. Paranasal sinuses and mastoid air cells clear. Calvarium intact. IMPRESSION: 1. No significant change compared to the prior study. 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 No acute intracranial abnormality. Electronically signed by: Nasir Hernandez M.D. 12/06/2018 8:22 PM ECG Data Attestation: I personally reviewed and interpreted this ECG as follows: Indication: other (fall) Rate (beats per minute): 96 Rhythm: atrial fibrillation Findings: + LBBB and + PVC Comparison ECG Date: from (10/27/18) Change: no significant change Blood Pressure Blood Pressure Findings: Elevated blood pressure Blood Pressure Disposition: further management by hospitalist MDM Narrative The patient is a 78-year-old male who presented to the emergency department for an evaluation of altered mental status and fever. The patient is been seen in our facility previously for similar complaints and has had previous septic work- ups. I discussed the patient's laboratory and radiographic studies with him. He was treated with IV fluids for presumed dehydration. The patient was reevaluated multiple times. The nursing staff did keep in close contact with the family members. The patient did not have a definite source found. I discussed his case with the on-call [facility] hospitalist. They have agreed to evaluate the patient in the emergency department for further management disposition. Impression & Plan Fever, Cellulitis, Fall, Weakness Discharge Plan Visit Data *Final* Discharge Date/Time: 12/07/18 01:40 Chief Complaint: Fall Stated Complaint: FALL ED Provider: Philipp Galloway Discharge Problem: Fever, Cellulitis, Fall, Weakness Patient Disposition: Admitted As Inpatient Discharge Instructions Interventions: ED Discharge Assessment Last Done: 12/07/18 01:40 Discharge Problem: Fever Qualifiers: Fever type: unspecified Qualified Code(s): R50.9 - Fever, unspecified Cellulitis Qualifiers: Site of cellulitis: extremity Site of cellulitis of extremity: lower extremity Laterality: left Qualified Code(s): L03.116 - Cellulitis of left lower limb Fall Qualifiers: Encounter type: initial encounter Qualified Code(s): W19.XXXA - Unspecified fall, initial encounter The scribe's documentation has been prepared under my direction and personally reviewed by me in its entirety. I confirm that the note above accurately reflects all work, treatment, procedures, and medical decision making performed by me.
[2018-12-06 20:15] LABS: Basophils # (auto) 0.04 K/uL (0-0.2); Basophils % (auto) 0.3 %; Eosinophils # (auto) 0.01 K/uL (0-0.5); Eosinophils % (auto) 0.1 %; Hematocrit (blood only) 33.4 % (42-52); Immature Granulocytes # (auto) 0.04 K/uL (0.00-0.02); Immature Granulocytes % (auto) 0.3 %; Lymphocytes # (auto) 1.26 K/uL (1.2-3.4); Lymphocytes % (auto) 9.3 %; Mean Corpuscular Hemoglobin 28.6 pg (25-34); Mean Corpuscular Hgb Conc 32.9 g/dL (32-36); Mean Platelet Volume 11.1 fL (7.4-10.4); Monocytes % (auto) 5.9 %; Neutrophils # (auto) 11.46 K/uL (1.4-6.5); Neutrophils % (auto) 84.1 %; Platelet Count 124 K/uL (130-400); RDW Coefficient of Variation 18.5 % (11.5-14.5); RDW Standard Deviation 58.7 fL (36.4-46.3); Red Blood Count 3.84 M/uL (4.7-6.1); White Blood Count 13.61 K/uL (4.8-10.8)
--- NOTE | 2018-12-06 20:23 | CT Scan Report ---
CT head/brain wo con CLINICAL HISTORY: 78 years-old Male presenting with fall. TECHNIQUE: Multidetector CT imaging of the head was performed without the use of intravenous contrast . IV contrast: None. One or more dose lowering techniques were used consistent with the principles of ALARA (as low as reasonably achievable), including automatic exposure control, mA or kV adjustment t o individual patient size, and/or use of iterative reconstruction. COMPARISON: None. CT DOSE (mGy.cm): The estimated cumulative dose is 3594.75. FINDINGS: Sheet Sorter topogram: Median sternotomy wires and prosthetic valve. Cardiomegaly. Proportional ventricular and sulcal prominence, likely age-related parenchymal volume loss. Extra-axi al dilatation of the atrium of the left lateral ventricle due to the presence of the chronic left par ietal lobe infarct. No hemorrhage. Brain parenchyma normal in appearance with preserved brown-white di fferentiation. No acute territorial infarct. No mass effect or midline shift. No extra-axial fluid co llection. Paranasal sinuses and mastoid air cells clear. Calvarium intact. IMPRESSION: 1. No significant change compared to the prior study. 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 No acute intracranial abnormality. Electronically signed by: Nasir Hernandez M.D. 12/06/2018 8:22 PM
--- NOTE | 2018-12-06 20:32 | CT Scan Report ---
CT cervical spine wo con CLINICAL HISTORY: 78 years-old Male presenting with fall. TECHNIQUE: Multidetector CT of the cervical spine was performed without the use of intravenous contra st. IV contrast: None. One or more dose lowering techniques were used consistent with the principles of ALARA (as low as reasonably achievable), including automatic exposure control, mA or kV adjustment to individual patient size, and/or use of iterative reconstruction. COMPARISON: None. CT DOSE (mGy.cm): The estimated cumulative dose is 3594.75 mGy.cm. 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 Normal cervical lordosis. Vertebral bodies maintain normal height and alignment apart from mild heigh t loss at C5 and C6, which is likely on a degenerative and/or osteopenic basis. There are degrees of intervertebral disc height loss most severe at C5-6 and C6-7, where there is the greatest degree of d egenerative change. Moderate posterior spondylitic spurring at these levels resulting in osseous spin al canal narrowing. Mild facet arthropathy and very degrees of uncovertebral hypertrophy result in os seous neural foraminal narrowing most prominently in the lower cervical spine. Advanced degenerative changes of the atlantodental articulation. No acute fracture or subluxation. Atherosclerosis. Paraspi nal musculature normal. Focal spiculated nodule suspected at the left apex versus pleural parenchymal scarring. IMPRESSION: 1. Spiculated left apical nodule versus pleural parenchymal scarring. Further evaluation with an non urgent chest CT is warranted. 2. No acute osseous injury. 3. Multilevel degenerative changes. Electronically signed by: Nasir Hernandez M.D. 12/06/2018 8:30 PM
[2018-12-06 20:34] LABS: Albumin Level 2.8 gm/dl (3.4-5.0); BUN Creatinine Ratio 15.2 (10-20); C Reactive Protein 10.5 mg/dl (0-0.29); Calcium 8.7 mg/dl (8.5-10.1); Creatinine Clr Calc Pharmacy 36.7 ml/min; Est GFR (African American) 34.3; Est GFR (Non-African American) 29.6; Magnesium 1.9 mg/dl (1.8-2.4); Potassium 3.7 mmol/L (3.5-5.1)
[2018-12-06 20:39] LABS: Albumin Globulin Ratio 0.6 (0.9-2); Globulin 4.8 gm/dl (2.5-4.0); Total Protein 7.6 gm/dl (6.4-8.2); Troponin I 0.016 ng/ml (0-0.045)
[2018-12-06 20:44] LABS: Base Excess VBG 2.2 mEq/L; Oxygen Saturation VBG 82.9 %; pH VBG 7.48 (7.36-7.41)
--- NOTE | 2018-12-06 20:48 | CT Scan Report ---
CT abd pelvis wo con CLINICAL HISTORY: 78 years-old Male presenting with fall. TECHNIQUE: Multidetector CT of the abdomen and pelvis was performed without the use of intravenous co ntrast. IV contrast: None. One or more dose lowering techniques were used consistent with the princip les of ALARA (as low as reasonably achievable), including automatic exposure control, mA or kV adjust ment to individual patient size, and/or use of iterative reconstruction. COMPARISON: None. CT DOSE (mGy.cm): The estimated cumulative dose is 3594.75. 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 Cardiomegaly. Image quality is degraded by body habitus and positioning of the arms over the abdomen. Lung bases: Multichamber enlargement of the heart. Coronary artery calcification. Prosthetic aortic v alve. No pericardial or pleural effusion. Extensive bibasilar bandlike opacities with peribronchial v ascular bundle thickening. Subsegmental endobronchial debris may be present. Liver: Normal morphology. Normal density. Biliary: No gross biliary ductal dilatation allowing for noncontrast technique. Gallstones or sludge suspected. Pancreas: Normal noncontrast appearance. Spleen: Normal noncontrast appearance. Adrenal glands: Normal noncontrast appearance. Kidneys and ureters: Macroscopic fat-containing lesion arising from the lower pole of the left kidney measuring 1.5 cm compatible with angiomyolipoma. A suspected smaller angiomyolipoma at the upper raul e the left kidney. No nephrolithiasis or hydronephrosis. Ureters nondistended. Bladder: Circumferential bladder wall thickening. Pelvic organs: Prostate enlargement likely secondary to benign prostatic hyperplasia. Bowel: Limited diverticulosis of the proximal sigmoid and distal descending colon without wall thicke reza or pericolonic inflammatory change. The appendix is normal. No bowel obstruction. Peritoneal cavity: No free fluid or intraperitoneal gas. Lymph nodes: No gross lymphadenopathy allowing for noncontrast technique. Vasculature: Atherosclerosis of the abdominal aorta, which demonstrates mild infrarenal ectasia measu ring 3.1 cm in diameter. Abdominal wall: Fat-containing left inguinal hernia. Musculoskeletal: Degenerative changes of the spine. Erosive changes of the inferior endplate of L1 wi th a prominent Schmorl's node, likely on a chronic and degenerative basis. No acute osseous injury. IMPRESSION: 1. Allowing for noncontrast technique, no acute intra-abdominal injury. 2. Suspected cholelithiasis versus biliary sludge. 3. Chronic bladder outlet obstruction secondary to prostatomegaly. 4. 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 5. Limited diverticulosis. 6. Peribronchovascular bundle thickening with bandlike opacities in the lung bases and potentially s ubsegmental endobronchial debris. These findings could relate to congestive change or chronic aspirat ion with superimposed atelectasis. Electronically signed by: Nasir Hernandez M.D. 12/06/2018 8:47 PM
[2018-12-06] MEDS ORDERED: SODIUM CHLORIDE 0.9% 1000ML 500 ML IV ONE (20:55)
[2018-12-06 21:00] LABS: INR 1.8 (0.9-1.1); Partial Thromboplastin Ratio 1.3; Partial Thromboplastin Time 34.5 Seconds (21.0-31.0); Prothrombin Time 17.7 Seconds (9.0-12.0)
--- NOTE | 2018-12-06 21:35 | XRay Report ---
XR chest 1V portable CLINICAL HISTORY: 78 years-old Male presenting with Sepsis. TECHNIQUE: Portable upright AP view of the chest was obtained. COMPARISON: 10/31/2018. FINDINGS: Median sternotomy wires and prosthetic aortic valve. Cardiac silhouette enlarged. Atherosclerosis of the aortic arch. Mild pulmonary vascular prominence, which is decreased from prior. Decreased perihil ar and bibasilar opacities with improved aeration of the lung bases. Some bibasilar opacity persists. No large pneumothorax. Degenerative changes of the thoracic spine. Chronic posttraumatic deformity o f the right humeral neck. Upper abdomen poorly evaluated given body habitus and portable technique. IMPRESSION: 1. Improved aeration of the lung bases with decreased volume overload and congestive change in alen rison to prior. 2. Minimal bibasilar atelectasis persists. No focal infiltrate characteristic of pneumonia. 3. Cardiomegaly. Electronically signed by: Nasir Hernandez M.D. 12/06/2018 9:34 PM
[2018-12-07 00:02] LABS: Appearance Urine Clear (Clear); Bacteria Urine Automated Negative (Negative); Bilirubin Urine Negative (Negative); Blood Urine Trace (Negative); Color Urine Yellow; Glucose Urine UA Negative (Negative); Ketones Urine Negative (Negative); Leukocyte Esterase Urine Trace (Negative); Nitrite Urine Negative (Negative); Protein Urine Negative (Negative); RBC Urine Automated 0-4 /hpf (0-4); Specific Gravity Urine 1.015 (1.000-1.030); Urobilinogen Urine Negative (Negative)
[2018-12-07] MEDS ORDERED: cefTRIAXone SODIUM 1,000 MG/50 ML BAG IV STA (00:36)
[2018-12-07] MEDS ORDERED: WARFARIN SOD 5 MG TAB PO ONE ×2 (01:06→01:26)
--- NOTE | 2018-12-07 01:06 | History & Physical Report ---
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 chronic diastolic HF (EF 57%, TTE 2018), px euvolemic to congested CAD/ PVD/CVA (right hemiplegia) as per records, hypertension, stable hx aortic 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/TAA sp mechanical AVR/repair (2007)/PAF on Coumadin, INR slightly subtherapeutic chronic LBBB DM 2 insulin requiring, suboptimal control as of recent hemoglobin A1c of 9.2 last October 2018 CRI, creatinine at baseline chronic anemia secondary to CKD, hemoglobin at baseline Functional disability past tobacco abuse GMF Cultures, Doxycycline for now Local measures for LLE cellulitis Basal insulin, ISS BG goal 1 40-1 80, carb count coverage PT OT eval DVT prophylaxis. Coumadin INR goal between 2 and 3, may need IV heparin if persistently subtherapeutic given history of mechanical AVR DNR as per patient niece/POA, Ms. Moraes Mesfin. She requests updates from providers through [phone]. History of Present Illness Chief Complaint: Fall, confusion as per records I do not know as per patient Primary Care Provider: Alise Buck MD History obtained from patient, family, and records. Limited history from patient secondary to disorientation. 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 Recent confinement September 2018 for CHF, gram-positive bacteremia (group C beta strep) secondary to RLE cellulitis. No endocarditis on TENNILLE. 4-week course of IV ceftriaxone completed. Patient initially discharged to [facility] for rehab. Patient discharged home 2 weeks ago. Yesterday patient had a fall in the shower. Patient noted to be more confused than usual. Fever 38.4. Patient denies chest pain, S OB, Left lower leg noted to be red. Patient's niece requested patient be brought to the ER for further evaluation. Patient does not know why he was brought to the hospital. At the ER, patient received IV ceftriaxone for sepsis. 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 Allergies Allergy/AdvReac Type Severity Reaction Status Date / Time No Known Allergies Allergy Unverified 12/06/18 20:49 Home Medications Home Medications Medication Instructions Recorded Confirmed Type atorvastatin 40 mg PO QAM 02/23/18 12/06/18 History docusate sodium 100 mg PO AMHS 02/23/18 12/06/18 History folic acid 1 mg PO QAM 02/23/18 12/06/18 History nitroglycerin 0.4 mg SUBLINGUAL DIRECTED PRN 02/23/18 12/06/18 History terazosin 2 mg PO HS 02/24/18 12/06/18 History Lantus Solostar U-100 Insulin 24 units SQ AMHS 07/10/18 12/06/18 History aspirin [Aspirin Childrens] 0.5 tab PO AMHS 07/10/18 12/06/18 History ferrous sulfate 325 mg PO QAM 10/25/18 12/06/18 History levothyroxine [Synthroid] 75 mcg PO QAM 10/25/18 12/06/18 History spironolactone 12.5 mg PO QAM 10/25/18 12/06/18 History warfarin 2.5 mg PO PM 10/25/18 12/06/18 History isosorbide mononitrate 60 mg PO QAM #0 tab 11/02/18 12/06/18 Rx insulin lispro [Humalog KwikPen 10 unit SUBCUT TID 12/06/18 12/06/18 History Insulin] metoprolol succinate 50 mg PO QAM 12/06/18 12/06/18 History metoprolol succinate [Toprol XL] 25 mg PO HS 12/06/18 12/06/18 History terazosin 2 mg PO HS 12/06/18 12/06/18 History Past Med/Surg History Medical History Coronary artery disease (Chronic) T2DM (type 2 diabetes mellitus) (Chronic) HTN (hypertension) (Chronic) History of endocarditis (Chronic) 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 weeks 05/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 LBBB (left bundle branch block) (Chronic) PVD (peripheral vascular disease) (Chronic) 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 (Chronic) [facility] current use of anticoagulant (Chronic) INR goal 2-3 Chronic atrial fibrillation (Chronic) Cerebrovascular disease (Chronic) Chronic diastolic heart failure (Chronic) ASCVD (arteriosclerotic cardiovascular disease) (Chronic) Septicemia due to group B Streptococcus (Resolved) Hypothyroidism (Chronic) Hyperlipidemia (Chronic) PAF (paroxysmal atrial fibrillation) (Chronic) Diabetes type 2, uncontrolled (Chronic) Surgical History History of cardiac catheterization (Chronic) Nonobstructive CAD S/P aortic valve replacement (Chronic) Family History Other Unknown family medical history Social History Preferred Language: Maltese Communication Ability: Effective Council On Aging Director Required: No Beliefs That Will Affect Care: None marital status: Current Living Situation: Spouse Current Living Situation Comment: Lives with and aunt Feels Safe at Home: Yes Safety Concerns: Feels Safe At This Time Smoking Status: Former smoker Tobacco Type: cigars ; Cigarettes Per Day: 1 cigar per day ; Do You Dip or Chew Tobacco: No ; Second Hand Exposure: No ; Hx Alcohol Use: No Hx Substance Use: No Review of Systems 2 Review of Systems: Could not be reliably obtained Physical Exam Physical Exam: GENERAL: Lethargic, disoriented, obese , no respiratory distress SKIN: Pallor , warm HEENT: Pale palpebral conjunctivae, no ptosis, dry buccal mucosa NECK : Supple, short neck, no tenderness CHEST : Decreased breath sounds , no tenderness HEART : Irregular, mechanical systolic murmur ABDOMEN: Some distention, nontender EXTREMITIES : LLE induration, minimal LLE tenderness, no other conspicuous deformities noted NEUROLOGIC : Coherent, no facial asymmetry, slightly hard of hearing, chronic right hemiparesis, no other gross focality Results & Data Vital Signs (Past 12 Hours) Vital Signs Temp Pulse Pulse Resp BP BP Pulse Ox 12/06/18 22:24 87 20 131/77 92 12/06/18 21:03 37.6 C H 84 22 104/78 95 12/06/18 19:56 94 12/06/18 19:46 38.4 C H 94 H 27 H 130/84 94 Laboratory Results Laboratory Results WBC 13.61 K/uL (4.8-10.8) H 12/06/18 19:55 RBC 3.84 M/uL (4.7-6.1) L 12/06/18 19:55 Hgb 11.0 g/dL (14.0-18.0) L 12/06/18 19:55 Hct 33.4 % (42-52) L 12/06/18 19:55 MCV 87.0 fL (80-100) 12/06/18 19:55 MCH 28.6 pg (25-34) 12/06/18 19:55 MCHC 32.9 g/dL (32-36) 12/06/18 19:55 RDW Std Deviation 58.7 fL (36.4-46.3) H 12/06/18 19:55 RDW Coeff of Elizabeth 18.5 % (11.5-14.5) H 12/06/18 19:55 Plt Count 124 K/uL (130-400) L 12/06/18 19:55 MPV 11.1 fL (7.4-10.4) H 12/06/18 19:55 Immature Gran % (Auto) 0.3 % 12/06/18 19:55 Neut % (Auto) 84.1 % 12/06/18 19:55 Lymph % (Auto) 9.3 % 12/06/18 19:55 [place] % (Auto) 5.9 % 12/06/18 19:55 Eos % (Auto) 0.1 % 12/06/18 19:55 Baso % (Auto) 0.3 % 12/06/18 19:55 Immature Gran # (Auto) 0.04 K/uL (0.00-0.02) H 12/06/18 19:55 Neut # (Auto) 11.46 K/uL (1.4-6.5) H 12/06/18 19:55 Lymph # (Auto) 1.26 K/uL (1.2-3.4) 12/06/18 19:55 [place] # (Auto) 0.80 K/uL (0.11-0.59) H 12/06/18 19:55 Eos # (Auto) 0.01 K/uL (0-0.5) 12/06/18 19:55 Baso # (Auto) 0.04 K/uL (0-0.2) 12/06/18 19:55 ESR 79 mm/hr (0-14) H 12/06/18 19:55 PT 17.7 Seconds (9.0-12.0) H 12/06/18 20:35 INR 1.8 (0.9-1.1) H 12/06/18 20:35 APTT 34.5 Seconds (21.0-31.0) H 12/06/18 20:35 PTT Ratio 1.3 12/06/18 20:35 VBG pH 7.48 (7.36-7.41) H 12/06/18 20:30 VBG pCO2 35 mmHg (38-50) L 12/06/18 20:30 VBG pO2 46 mmHg 12/06/18 20:30 VBG HCO3 26 mmol/L 12/06/18 20:30 VBG O2 Saturation 82.9 % 12/06/18 20:30 VBG Base Excess 2.2 mEq/L 12/06/18 20:30 Barometric Pressure 734.4 mm/Hg 12/06/18 20:30 Sodium 142 mmol/L (136-145) 12/06/18 19:55 Potassium 3.7 mmol/L (3.5-5.1) 12/06/18 19:55 Chloride 108 mmol/L (98-107) H 12/06/18 19:55 Carbon Dioxide 25 mmol/L (21-32) 12/06/18 19:55 Anion Gap 9.0 (3-11) 12/06/18 19:55 BUN 32 mg/dl (7-18) H 12/06/18 19:55 Creatinine 2.08 mg/dl (0.6-1.4) H 12/06/18 19:55 Est Cr Clr Drug Dosing 36.7 ml/min 12/06/18 19:55 Est GFR ( Amer) 34.3 12/06/18 19:55 Est GFR (Non-Af Amer) 29.6 12/06/18 19:55 BUN/Creatinine Ratio 15.2 (10-20) 12/06/18 19:55 Glucose 87 mg/dl (70-99) 12/06/18 19:55 Lactate 1.3 mmol/L (0.4-2.0) 12/06/18 20:30 Calcium 8.7 mg/dl (8.5-10.1) 12/06/18 19:55 Magnesium 1.9 mg/dl (1.8-2.4) 12/06/18 19:55 Total Bilirubin 1.0 mg/dl (0.2-1) 12/06/18 19:55 AST 20 U/L (15-37) 12/06/18 19:55 ALT 19 U/L (12-78) 12/06/18 19:55 Alkaline Phosphatase 82 U/L (45-117) 12/06/18 19:55 Troponin I 0.016 ng/ml (0-0.045) 12/06/18 19:55 C-Reactive Protein 10.50 mg/dl (0-0.29) H 12/06/18 19:55 Total Protein 7.6 gm/dl (6.4-8.2) 12/06/18 19:55 Albumin 2.8 gm/dl (3.4-5.0) L 12/06/18 19:55 Globulin 4.8 gm/dl (2.5-4.0) H 12/06/18 19:55 Albumin/Globulin Ratio 0.6 (0.9-2) L 12/06/18 19:55 Procalcitonin 0.52 ng/ml (0-0.5) H 12/06/18 19:55 Urine Color Yellow 12/06/18 23:53 Urine Appearance Clear (Clear) 12/06/18 23:53 Urine pH 5.0 (4.5-7.5) 12/06/18 23:53 Ur Specific [place] 1.015 (1.000-1.030) 12/06/18 23:53 Urine Protein Negative (Negative) 12/06/18 23:53 Urine Glucose (UA) Negative (Negative) 12/06/18 23:53 Urine Ketones Negative (Negative) 12/06/18 23:53 Urine Blood Trace (Negative) H 12/06/18 23:53 Urine Nitrite Negative (Negative) 12/06/18 23:53 Urine Bilirubin Negative (Negative) 12/06/18 23:53 Urine Urobilinogen Negative (Negative) 12/06/18 23:53 Ur Leukocyte Esterase Trace (Negative) H 12/06/18 23:53 Urine WBC (Auto) 1-5 /hpf (0-5) 12/06/18 23:53 Urine RBC (Auto) 0-4 /hpf (0-4) 12/06/18 23:53 U Hyaline Cast (Auto) 1-5 /lpf (0-5) 12/06/18 23:53 U Epithel Cells (Auto) 5-10 /lpf (0-5) H 12/06/18 23:53 Urine Bacteria (Auto) Negative (Negative) 12/06/18 23:[address] head: 1. No significant change compared to the prior study. 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 No acute intracranial abnormality. CT cervical spine 1. Spiculated left apical nodule versus pleural parenchymal scarring. Further evaluation with an nonurgent chest CT is warranted. 2. No acute osseous injury. 3. Multilevel degenerative changes. CT abdomen pelvis: 1. Allowing for noncontrast technique, no acute intra-abdominal injury. 2. Suspected cholelithiasis versus biliary sludge. 3. Chronic bladder outlet obstruction secondary to prostatomegaly. 4. 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 5. Limited diverticulosis. 6. Peribronchovascular bundle thickening with bandlike opacities in the lung bases and potentially subsegmental endobronchial debris. These findings could relate to congestive change or chronic aspiration with superimposed atelectasis. Chest x-ray : 1. Improved aeration of the lung bases with decreased volume overload and congestive change in comparison to prior. 2. Minimal bibasilar atelectasis persists. No focal infiltrate characteristic of pneumonia. 3. Cardiomegaly. EKG as per my interpretation : Rate 95, A. fib, LAD, LAFB, LBBB, PVCs
[2018-12-07] MEDS ORDERED: DOXYCYCLINE HYCLATE 100 MG in DEXTROSE 5% 100 ML IV STA (01:27)
[2018-12-07] MEDS ORDERED: TRAMADOL HCL 50 MG TABLET PO PRN (02:52)
[2018-12-07] MEDS ORDERED: LACTATED RINGER'S 1,000 ML IV ONE (02:52)
[2018-12-07] MEDS ORDERED: GLUCAGON FOR INJ 1 MG VIAL SQ PRN (02:52)
[2018-12-07] MEDS ORDERED: CARBOHYDRATES FOR HYPOGLYCEMIA PO PRN (02:52)
[2018-12-07] MEDS ORDERED: ACETAMINOPHEN 325 MG TAB PO PRN (02:52)
[2018-12-07] MEDS ORDERED: DEXTROSE 50% 50 ML SYRINGE IV PRN (02:52)
[2018-12-07] MEDS ORDERED: GLUCOSE 10 TABS/TUBE PO PRN (02:52)
[2018-12-07] MEDS ORDERED: NITROGLYCERIN SL 0.4 MG/TAB TAB SL PRN (02:52)
[2018-12-07] MEDS ORDERED: GLUCOSE 40% GEL 15 GM TUBE PO PRN (02:52)
[2018-12-07] MEDS ORDERED: PROMETHAZINE HCL 12.5 MG in SODIUM CHLORIDE 0.9% 50 ML IV PRN (02:52)
[2018-12-07] MEDS ORDERED: MICONAZOLE NITRATE POWDER 43 GM EXT PRN (04:08)
[2018-12-07] MEDS: METOPROLOL SUCC 25MG EXT REL TAB PO SCH ×2 (04:11→22:02)
[2018-12-07] MEDS: TERAZOSIN HCL 1 MG CAP PO SCH ×2 (04:11→22:01)
[2018-12-07 05:35] LABS: Hematocrit (blood only) 32.5 % (42-52); Hemoglobin 10.3 g/dL (14.0-18.0); Mean Corpuscular Hemoglobin 27.9 pg (25-34); Mean Corpuscular Hgb Conc 31.7 g/dL (32-36); Mean Corpuscular Volume 88.1 fL (80-100); RDW Coefficient of Variation 18.4 % (11.5-14.5); RDW Standard Deviation 59.5 fL (36.4-46.3); Red Blood Count 3.69 M/uL (4.7-6.1); White Blood Count 8.96 K/uL (4.8-10.8)
[2018-12-07] MEDS: LEVOTHYROXINE SODIUM 75 MCG TABLET PO SCH (05:41)
[2018-12-07 05:42] LABS: INR 1.7 (0.9-1.1); Partial Thromboplastin Ratio 1.3; Partial Thromboplastin Time 34.2 Seconds (21.0-31.0)
[2018-12-07] MEDS ORDERED: HEPARIN SODIUM/DEXTROSE 25,000 UNITS/500 ML BAG IV SCH (05:45)
[2018-12-07] MEDS ORDERED: Heparin IV Low Dose *NO* Bolus IV ONE (05:45)
[2018-12-07 06:00] LABS: BUN Creatinine Ratio 16.4 (10-20); Calcium 7.7 mg/dl (8.5-10.1); Creatinine Clr Calc Pharmacy 37.9 ml/min; Potassium 3.8 mmol/L (3.5-5.1)
[2018-12-07 06:13] LABS: Basophils # (auto) 0.03 K/uL (0-0.2); Basophils % (auto) 0.3 %; Eosinophils # (auto) 0.08 K/uL (0-0.5); Eosinophils % (auto) 0.9 %; Immature Granulocytes # (auto) 0.01 K/uL (0.00-0.02); Immature Granulocytes % (auto) 0.1 %; Lymphocytes # (auto) 1.29 K/uL (1.2-3.4); Lymphocytes % (auto) 14.4 %; Mean Platelet Volume 11.2 fL (7.4-10.4); Monocytes # (auto) 0.63 K/uL (0.11-0.59); Neutrophils # (auto) 6.92 K/uL (1.4-6.5); Neutrophils % (auto) 77.3 %; Platelet Count 99 K/uL (130-400); Platelet Estimate Decreased (Normal)
[2018-12-07] MEDS: Heparin Adult LOW DOSE Wt-Based Dextrose 5% 25,000 units/500 mL IV SCH (06:14)
[2018-12-07] MEDS: METOPROLOL SUCC 50MG EXT REL TAB PO SCH (06:46)
[2018-12-07] MEDS: FERROUS SULFATE 325 MG TAB PO SCH (06:49)
[2018-12-07] MEDS: ISOSORBIDE MONO EXTENDED REL 60 MG TABCR PO SCH (07:46)
[2018-12-07] MEDS: ATORVASTATIN 40 MG TAB PO SCH (07:46)
[2018-12-07] MEDS: DOCUSATE SODIUM 100 MG CAP PO SCH ×2 (07:47→21:59)
[2018-12-07] MEDS: FOLIC ACID 1 MG TAB PO SCH (07:47)
[2018-12-07] MEDS: ASPIRIN 81 MG CHEW PO SCH ×2 (07:47→22:01)
[2018-12-07] MEDS: INSULIN GLARGINE SOLOSTAR 100 UNITS/ML 3 ML PEN SQ SCH ×2 (08:31→22:05)
[2018-12-07] MEDS: INSULIN ASPART 100 UNITS/ML 3 ML PEN SC SCH ×4 (08:31→22:02)
[2018-12-07] MEDS ORDERED: METOPROLOL SUCC 50MG EXT REL TAB PO SCH (09:00)
[2018-12-07] MEDS ORDERED: INSULIN GLARGINE SOLOSTAR 100 UNITS/ML 3 ML PEN SQ SCH (09:00)
[2018-12-07 13:21] LABS: Partial Thromboplastin Ratio 1.8
[2018-12-07 13:28] LABS: Partial Thromboplastin Time 47.5 Seconds (21.0-31.0)
--- NOTE | 2018-12-07 15:37 | Hospitalist Progress Note ---
Date of Service December 07, 2018 Assessment & Plan (1) Sepsis: LLE Celluitis Present on admission with erythema of LLE associated with fever Meet sepsis criteria on admission with Elevated WBC, Tachycardia, Elevated Temp Received Rocephin in the ER Blood cx pending Starting on IV doxycycline WBC improves Has been afebrile since Diabetes HbA1C 9.2 on 11/13 On insulin and novolog sliding scale Monitor BS Continue monitor Chronic diastolic HF Last ECHO on 12/13 showed EF 60-65 % No signs of fluid overload Continue monitor closely Chronic Kidney Disease stage 3 Creatinine stable t baseline Continue monitor BMP Avoid nephrotoxic agents History of endocarditis: Has a mechanical aortic valve present with a h/o endocarditis. Mechanical prosthesis remains competent at this time as per cardiology Very high risk for valve replacement due to morbidities and renal 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. Chronic atrial fibrillation Rate improves on metoprolol On coumadin with INR 1.6 today Continue heparin drip for now Stable Respiratory failure Continue Bipap at night Continue oxygen supplement Stable DVT prophylaxis: On coumadin with INR 1.7 today Continue heparin drip for now CODE STATUS DNR/DNI Disposition DNR as per patient niece/POA, . Aleisha Mesfin. She requests updates from providers through [phone]. Subjective Pt was seen and examined Lying in bed with no distress Pt said that he feels fine He said that tomorrow he was planning to go to the [employer] He was asking if he can go home later today Denies any chest pain, palpitation, dizziness and SOB Physical Exam Physical Exam: General- No acute distress, Obesity Head- atraumatic Eyes- PERRL, EOMI, ENT- oropharynx clear Neck- supple, no JVD Lungs- clear to auscultation Heart- irregular rhythm; +systolic murmur Abdomen- normal bowel sounds, soft, nontender Extremities- no calf tenderness, +Edema L>R, LLE redness Neuro- alert, oriented x 3; PERRL, EOMI; no facial palsy; no dysarthria Skin- warm & dry Results & Data Vital Signs (Past 12 Hours) Vital Signs Temp Pulse Resp BP Pulse Ox 12/07/18 07:22 36.7 C 85 18 133/83 96 12/07/18 06:45 86 117/70 12/07/18 04:10 106 H 145/91 H
[2018-12-07] MEDS: WARFARIN SOD 5 MG TAB PO SCH (16:12)
[2018-12-07] MEDS: DOXYCYCLINE HYCLATE 100 MG CAP PO SCH (17:42)
[2018-12-07] MEDS: FUROSEMIDE 80 MG TAB PO SCH (18:17)
[2018-12-08] MEDS: DOXYCYCLINE HYCLATE 100 MG CAP PO SCH ×2 (06:16→17:14)
[2018-12-08] MEDS: FERROUS SULFATE 325 MG TAB PO SCH (06:17)
[2018-12-08] MEDS: LEVOTHYROXINE SODIUM 75 MCG TABLET PO SCH (06:18)
[2018-12-08 07:18] LABS: Hematocrit (blood only) 30.3 % (42-52); Hemoglobin 9.5 g/dL (14.0-18.0); Mean Corpuscular Hemoglobin 27.5 pg (25-34); Mean Corpuscular Hgb Conc 31.4 g/dL (32-36); Mean Corpuscular Volume 87.8 fL (80-100); Mean Platelet Volume 10.5 fL (7.4-10.4); Platelet Count 101 K/uL (130-400); RDW Coefficient of Variation 18.4 % (11.5-14.5); RDW Standard Deviation 59.2 fL (36.4-46.3); Red Blood Count 3.45 M/uL (4.7-6.1); White Blood Count 6.29 K/uL (4.8-10.8)
[2018-12-08 07:43] LABS: Partial Thromboplastin Time 53.2 Seconds (21.0-31.0)
[2018-12-08] MEDS: Heparin Adult LOW DOSE Wt-Based Dextrose 5% 25,000 units/500 mL IV SCH (09:05)
[2018-12-08 09:40] LABS: BUN Creatinine Ratio 19.1 (10-20); Creatinine Clr Calc Pharmacy 38.5 ml/min; Est GFR (African American) 36.9; Est GFR (Non-African American) 31.8; Potassium 3.7 mmol/L (3.5-5.1)
[2018-12-08 09:41] LABS: INR 2.4 (0.9-1.1); Prothrombin Time 23.5 Seconds (9.0-12.0)
[2018-12-08] MEDS: INSULIN ASPART 100 UNITS/ML 3 ML PEN SC SCH ×4 (09:44→20:42)
[2018-12-08] MEDS: INSULIN GLARGINE SOLOSTAR 100 UNITS/ML 3 ML PEN SQ SCH ×2 (09:44→20:42)
[2018-12-08] MEDS: METOPROLOL SUCC 50MG EXT REL TAB PO SCH (09:48)
[2018-12-08] MEDS: FOLIC ACID 1 MG TAB PO SCH (09:48)
[2018-12-08] MEDS: ASPIRIN 81 MG CHEW PO SCH ×2 (09:48→20:41)
[2018-12-08] MEDS: FUROSEMIDE 80 MG TAB PO SCH ×2 (09:49→17:14)
[2018-12-08] MEDS: ATORVASTATIN 40 MG TAB PO SCH (09:49)
[2018-12-08] MEDS: ISOSORBIDE MONO EXTENDED REL 60 MG TABCR PO SCH (09:49)
[2018-12-08] MEDS: DOCUSATE SODIUM 100 MG CAP PO SCH ×2 (09:49→20:42)
[2018-12-08] MEDS: WARFARIN SOD 5 MG TAB PO SCH (16:20)
--- NOTE | 2018-12-08 20:01 | Hospitalist Progress Note ---
Date of Service December 08, 2018 Assessment & Plan (1) Sepsis: LLE Celluitis Present on admission with erythema of LLE associated with fever Meet sepsis criteria on admission with Elevated WBC, Tachycardia, Elevated Temp Received Rocephin in the ER Blood cx no growth so far Continue IV doxycycline WBC improves Has been afebrile since Diabetes HbA1C 9.2 on 11/13 On insulin and novolog sliding scale Monitor BS Continue monitor Chronic diastolic HF Last ECHO on 12/13 showed EF 60-65 % No signs of fluid overload Continue monitor closely Chronic Kidney Disease stage 3 Creatinine stable t baseline Continue monitor BMP Avoid nephrotoxic agents History of endocarditis: Has a mechanical aortic valve present with a h/o endocarditis. Mechanical prosthesis remains competent at this time as per cardiology Very high risk for valve replacement due to morbidities and renal 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. Chronic atrial fibrillation Rate improves on metoprolol On coumadin with INR 2.4 today IV heparin drip discontinue Stable Respiratory failure Continue Bipap at night Continue oxygen supplement Stable DVT prophylaxis: On coumadin with INR 2.4 today IV heparin drip discontinue CODE STATUS DNR/DNI Disposition DNR as per patient niece/POA, . Aleisha Hardenphart. She requests updates from providers through [phone]. Subjective Pt was seen and examined Lying in bed with no distress LLE erythema improved He said that he urinates alot today Denies any fever, palpitation, dizziness and SOB Physical Exam Physical Exam: General- No acute distress, Obesity Head- atraumatic Eyes- PERRL, EOMI, ENT- oropharynx clear Neck- supple, no JVD Lungs- clear to auscultation Heart- irregular rhythm; +systolic murmur Abdomen- normal bowel sounds, soft, nontender Extremities- no calf tenderness, +Edema L>R, LLE redness improves Neuro- alert, oriented x 3; PERRL, EOMI; no facial palsy; no dysarthria Skin- warm & dry Results & Data Vital Signs (Past 12 Hours) Vital Signs Temp Pulse Resp BP Pulse Ox 12/08/18 15:00 36.6 C 83 18 128/71 94
[2018-12-08] MEDS: METOPROLOL SUCC 25MG EXT REL TAB PO SCH (20:41)
[2018-12-08] MEDS: TERAZOSIN HCL 1 MG CAP PO SCH (20:41)
[2018-12-09] MEDS: LEVOTHYROXINE SODIUM 75 MCG TABLET PO SCH (05:18)
[2018-12-09] MEDS: DOXYCYCLINE HYCLATE 100 MG CAP PO SCH ×2 (05:18→17:15)
[2018-12-09] MEDS: FERROUS SULFATE 325 MG TAB PO SCH (05:18)
[2018-12-09 07:07] LABS: INR 2.8 (0.9-1.1); Partial Thromboplastin Ratio 1.5; Partial Thromboplastin Time 39.6 Seconds (21.0-31.0); Prothrombin Time 26.3 Seconds (9.0-12.0)
[2018-12-09 07:20] LABS: BUN Creatinine Ratio 19.3 (10-20); Creatinine Clr Calc Pharmacy 37.7 ml/min; Est GFR (African American) 36.4; Est GFR (Non-African American) 31.4; Potassium 3.6 mmol/L (3.5-5.1)
[2018-12-09] MEDS: INSULIN ASPART 100 UNITS/ML 3 ML PEN SC SCH ×4 (08:35→20:39)
[2018-12-09] MEDS: ASPIRIN 81 MG CHEW PO SCH ×2 (08:36→20:38)
[2018-12-09] MEDS: DOCUSATE SODIUM 100 MG CAP PO SCH ×2 (08:37→20:38)
[2018-12-09] MEDS: FOLIC ACID 1 MG TAB PO SCH (08:38)
[2018-12-09] MEDS: ISOSORBIDE MONO EXTENDED REL 60 MG TABCR PO SCH (08:38)
[2018-12-09] MEDS: INSULIN GLARGINE SOLOSTAR 100 UNITS/ML 3 ML PEN SQ SCH ×2 (08:39→20:39)
[2018-12-09] MEDS: ATORVASTATIN 40 MG TAB PO SCH (08:40)
[2018-12-09] MEDS: FUROSEMIDE 80 MG TAB PO SCH ×2 (08:40→17:15)
[2018-12-09] MEDS: METOPROLOL SUCC 50MG EXT REL TAB PO SCH (08:40)
[2018-12-09] MEDS: SPIRONOLACTONE 25 MG TAB PO SCH (12:38)
[2018-12-09] MEDS: WARFARIN SOD 2.5 MG TAB PO SCH (15:20)
--- NOTE | 2018-12-09 16:04 | Hospitalist Progress Note ---
Date of Service December 09, 2018 Assessment & Plan (1) Sepsis: LLE Cellulitis Present on admission with erythema of LLE associated with fever Meet sepsis criteria on admission with Elevated WBC, Tachycardia, Elevated Temp Received Rocephin in the ER Blood cx no growth so far IV Doxycycline changed to oral doxycycline WBC back to normal LLE erythema improves significantly Diabetes HbA1C 9.2 on 11/13 On insulin and novolog sliding scale Monitor BS Continue monitor Chronic diastolic HF Last ECHO on 12/13 showed EF 60-65 % No signs of fluid overload Continue monitor closely Chronic Kidney Disease stage 3 Creatinine stable at baseline 1.9 Continue monitor BMP Avoid nephrotoxic agents History of endocarditis: Has a mechanical aortic valve present with a h/o endocarditis. Mechanical prosthesis remains competent at this time as per cardiology Very high risk for valve replacement due to morbidities and renal 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. Chronic atrial fibrillation Rate improves on metoprolol On coumadin with INR 2.8 today IV heparin drip discontinued Stable Morbid Obesity BMI 45.3 Counseling on weight lost Respiratory failure Continue Bipap at night Continue oxygen supplement Stable DVT prophylaxis: On coumadin with INR 2.8today IV heparin drip discontinued CODE STATUS DNR/DNI Disposition DNR as per patient niece/POA, . Aleisha Mesfin. She requests updates from providers through [phone]. Possible discharge home tomorrow Subjective Pt was seen and examined Lying in bed with no distress Pt looks much better today He is more awake today He is getting ready to watch the football game Denies any chest pain, palpitation, dizziness and SOB Physical Exam Physical Exam: General- No acute distress, Obesity Head- atraumatic Eyes- PERRL, EOMI, ENT- oropharynx clear Neck- supple, no JVD Lungs- clear to auscultation Heart- irregular rhythm; +systolic murmur Abdomen- normal bowel sounds, soft, nontender Extremities- no calf tenderness, +Edema L>R, LLE redness improves significantly Neuro- alert, oriented x 3; PERRL, EOMI; no facial palsy; no dysarthria Skin- warm & dry Results & Data Vital Signs (Past 12 Hours) Vital Signs Temp Pulse Resp BP Pulse Ox 12/09/18 15:13 37.1 C 77 18 152/78 H 91 12/09/18 11:30 36.8 C 88 20 129/72 90 12/09/18 07:51 36.9 C 82 20 144/92 H 91 12/09/18 04:19 36.8 C 86 20 113/74 92
[2018-12-09] MEDS: TERAZOSIN HCL 1 MG CAP PO SCH (20:39)
[2018-12-09] MEDS: METOPROLOL SUCC 25MG EXT REL TAB PO SCH (20:39)
[2018-12-10] MEDS: LEVOTHYROXINE SODIUM 75 MCG TABLET PO SCH (05:39)
[2018-12-10] MEDS: DOXYCYCLINE HYCLATE 100 MG CAP PO SCH (05:39)
[2018-12-10] MEDS: FERROUS SULFATE 325 MG TAB PO SCH (05:40)
[2018-12-10 06:33] LABS: Prothrombin Time 28.8 Seconds (9.0-12.0)
[2018-12-10] MEDS: ATORVASTATIN 40 MG TAB PO SCH (08:26)
[2018-12-10] MEDS: FOLIC ACID 1 MG TAB PO SCH (08:27)
[2018-12-10] MEDS: FUROSEMIDE 80 MG TAB PO SCH (08:27)
[2018-12-10] MEDS: METOPROLOL SUCC 50MG EXT REL TAB PO SCH (08:27)
[2018-12-10] MEDS: DOCUSATE SODIUM 100 MG CAP PO SCH (08:27)
[2018-12-10] MEDS: SPIRONOLACTONE 25 MG TAB PO SCH (08:27)
[2018-12-10] MEDS: ISOSORBIDE MONO EXTENDED REL 60 MG TABCR PO SCH (08:27)
[2018-12-10] MEDS: ASPIRIN 81 MG CHEW PO SCH (08:27)
[2018-12-10] MEDS: INSULIN GLARGINE SOLOSTAR 100 UNITS/ML 3 ML PEN SQ SCH (08:28)
[2018-12-10] MEDS: INSULIN ASPART 100 UNITS/ML 3 ML PEN SC SCH ×2 (08:28→12:18)
[2018-12-10 12:17] VITALS: PULSE 87; TEMP 98.1; O2SAT 92
--- NOTE | 2018-12-10 14:34 | Hospitalist Progress Note ---
Date of Service December 10, 2018 Assessment & Plan (1) Sepsis: LLE Cellulitis Present on admission with erythema of LLE associated with fever Meet sepsis criteria on admission with Elevated WBC, Tachycardia, Elevated Temp Received Rocephin in the ER Blood cx no growth so far IV Doxycycline changed to oral doxycycline WBC back to normal LLE erythema/swelling improves significantly Continue Doxycycline for 7 days Diabetes HbA1C 9.2 on 11/13 On insulin and novolog sliding scale Monitor BS Continue monitor Chronic diastolic HF Last ECHO on 12/13 showed EF 60-65 % No signs of fluid overload Continue Lasix and spironolactone Continue monitor closely Chronic Kidney Disease stage 3 Creatinine stable at baseline 1.9 Continue monitor BMP Avoid nephrotoxic agents Stable History of endocarditis: Has a mechanical aortic valve present with a h/o endocarditis. Mechanical prosthesis remains competent at this time as per cardiology Very high risk for valve replacement due to morbidities and renal 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. Chronic atrial fibrillation Rate improves on metoprolol On coumadin with INR 3.0 today IV heparin drip discontinued Follow up with the coumadin clinic Morbid Obesity BMI 45.3 Counseling on weight lost Weakness S/P fall Continue to refused to go to rehab Continue PT/OT with home health services Fall precaution Respiratory failure Continue Bipap at night Continue oxygen supplement Stable DVT prophylaxis: On coumadin with INR 3 today CODE STATUS DNR/DNI Disposition DNR as per patient niece/POA, Ms. Aleisha Mesfin. She requests updates from providers through [phone]. Dscharge home today with home health services Refused to go to rehab Subjective Pt was seen and examined Lying in bed with no distress watching TV Pt said that he was up all night to urinate He said that he feels fine His left leg look much better He does not want to go to rehab because he had a bad experience in the past Denies any chest pain, palpitation, dizziness and SOB Physical Exam Physical Exam: General- No acute distress, Obesity Head- atraumatic Eyes- PERRL, EOMI, ENT- oropharynx clear Neck- supple, no JVD Lungs- clear to auscultation Heart- irregular rhythm; +systolic murmur Abdomen- normal bowel sounds, soft, nontender Extremities- no calf tenderness, +Edema L>R improve, LLE redness improves significantly Neuro- alert, oriented x 3; PERRL, EOMI; no facial palsy; no dysarthria Skin- warm & dry Results & Data Vital Signs (Past 12 Hours) Vital Signs Temp Pulse Resp BP Pulse Ox 12/10/18 12:16 36.7 C 87 20 126/76 92
[2018-12-10 15:12] VITALS: BP 148/83
[2018-12-10] MEDS ORDERED: DOXYCYCLINE HOME PACK 100 MG/CAP PO ONE (15:50)
[2018-12-10] MEDS: WARFARIN SOD 2.5 MG TAB PO SCH (16:18)
--- NOTE | 2018-12-10 23:05 | Discharge Summary ---
Date of Service December 10, 2018 Admission HPI Per Admitting Provider History obtained from patient, family, and records. Limited history from patient secondary to disorientation. 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 Recent confinement September 2018 for CHF, gram-positive bacteremia (group C beta strep) secondary to RLE cellulitis. No endocarditis on [place]. 4-week course of IV ceftriaxone completed. Patient initially discharged to [facility] for rehab. Patient discharged home 2 weeks ago. Yesterday patient had a fall in the shower. Patient noted to be more confused than usual. Fever 38.4. Patient denies chest pain, S OB, Left lower leg noted to be red. Patient's niece requested patient be brought to the ER for further evaluation. Patient does not know why he was brought to the hospital. At the ER, patient received IV ceftriaxone for sepsis. 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 Admission Exam Per Admitting Provider GENERAL: Lethargic, disoriented, obese , no respiratory distress SKIN: Pallor , warm HEENT: Pale palpebral conjunctivae, no ptosis, dry buccal mucosa NECK : Supple, short neck, no tenderness CHEST : Decreased breath sounds , no tenderness HEART : Irregular, mechanical systolic murmur ABDOMEN: Some distention, nontender EXTREMITIES : LLE induration, minimal LLE tenderness, no other conspicuous deformities noted NEUROLOGIC : Coherent, no facial asymmetry, slightly hard of hearing, chronic right hemiparesis, no other gross focality Principal Diagnosis Left Lower Extremity Cellulitis Diabetes Mellitus Chronic Kidney disease stage 3 Chronic diastolic Heart Failure Chronic atrial fibrillation Discharge Exam General- No acute distress, Obesity Head- atraumatic Eyes- PERRL, EOMI, ENT- oropharynx clear Neck- supple, no JVD Lungs- clear to auscultation Heart- irregular rhythm; +systolic murmur Abdomen- normal bowel sounds, soft, nontender Extremities- no calf tenderness, +Edema L>R improve, LLE redness improves significantly Neuro- alert, oriented x 3; PERRL, EOMI; no facial palsy; no dysarthria Skin- warm & dry Discharge Data Allergies Allergy/AdvReac Type Severity Reaction Status Date / Time No Known Allergies Allergy Unverified 12/06/18 20:49 Consultations 12/07/18 00:34 ED Decision to Admit Stat Ordered Studies 12/06/18 19:53 CT abd pelvis wo con Stat CT cervical spine wo con Stat CT head/brain wo con Stat CT head/brain wo con CLINICAL HISTORY: 78 years-old Male presenting with fall. TECHNIQUE: Multidetector CT imaging of the head was performed without the use of intravenous contrast. IV contrast: None. One or more dose lowering techniques were used consistent with the principles of ALARA (as low as reasonably achievable), including automatic exposure control, mA or kV adjustment to individual patient size, and/or use of iterative reconstruction. COMPARISON: None. CT DOSE (mGy.cm): The estimated cumulative dose is 3594.75. FINDINGS: Twisting Frame Fixer topogram: Median sternotomy wires and prosthetic valve. Cardiomegaly. Proportional ventricular and sulcal prominence, likely age-related parenchymal volume loss. Extra-axial dilatation of the atrium of the left lateral ventricle due to the presence of the chronic left parietal lobe infarct. No hemorrhage. Brain parenchyma normal in appearance with preserved brown-white differentiation. No acute territorial infarct. No mass effect or midline shift. No extra-axial fluid collection. Paranasal sinuses and mastoid air cells clear. Calvarium intact. IMPRESSION: 1. No significant change compared to the prior study. 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 No acute intracranial abnormality. Electronically signed by: Nasir Hernandez M.D. 12/06/2018 8:22 PM Dictated: 12/06/182018 Transcribed: 12/06/182018 XR chest 1V portable CLINICAL HISTORY: 78 years-old Male presenting with Sepsis. TECHNIQUE: Portable upright AP view of the chest was obtained. COMPARISON: 10/31/2018. FINDINGS: Median sternotomy wires and prosthetic aortic valve. Cardiac silhouette enlarged. Atherosclerosis of the aortic arch. Mild pulmonary vascular prominence, which is decreased from prior. Decreased perihilar and bibasilar opacities with improved aeration of the lung bases. Some bibasilar opacity persists. No large pneumothorax. Degenerative changes of the thoracic spine. Chronic posttraumatic deformity of the right humeral neck. Upper abdomen poorly evaluated given body habitus and portable technique. IMPRESSION: 1. Improved aeration of the lung bases with decreased volume overload and congestive change in comparison to prior. 2. Minimal bibasilar atelectasis persists. No focal infiltrate characteristic of pneumonia. 3. Cardiomegaly. Electronically signed by: Nasir Hernandez M.D. 12/06/2018 9:34 PM Dictated: 12/06/182131 Transcribed: 12/06/182131 CT cervical spine wo con CLINICAL HISTORY: 78 years-old Male presenting with fall. TECHNIQUE: Multidetector CT of the cervical spine was performed without the use of intravenous contrast. IV contrast: None. One or more dose lowering techniques were used consistent with the principles of ALARA (as low as reasonably achievable), including automatic exposure control, mA or kV adjustment to individual patient size, and/or use of iterative reconstruction. COMPARISON: None. CT DOSE (mGy.cm): The estimated cumulative dose is 3594.75 mGy.cm. FINDINGS: Twisting Frame Fixer topogram: Median sternotomy wires and prosthetic aortic valve. Normal cervical lordosis. Vertebral bodies maintain normal height and alignment apart from mild height loss at C5 and C6, which is likely on a degenerative and/or osteopenic basis. There are degrees of intervertebral disc height loss most severe at C5-6 and C6-7, where there is the greatest degree of degenerative change. Moderate posterior spondylitic spurring at these levels resulting in osseous spinal canal narrowing. Mild facet arthropathy and very degrees of uncovertebral hypertrophy result in osseous neural foraminal narrowing most prominently in the lower cervical spine. Advanced degenerative changes of the atlantodental articulation. No acute fracture or subluxation. Atherosclerosis. Paraspinal musculature normal. Focal spiculated nodule suspected at the left apex versus pleural parenchymal scarring. IMPRESSION: 1. Spiculated left apical nodule versus pleural parenchymal scarring. Further evaluation with an nonurgent chest CT is warranted. 2. No acute osseous injury. 3. Multilevel degenerative changes. Electronically signed by: Nasir Hernandez M.D. 12/06/2018 8:30 PM Dictated: 12/06/182026 Transcribed: 12/06/182026 CT abd pelvis wo con CLINICAL HISTORY: 78 years-old Male presenting with fall. TECHNIQUE: Multidetector CT of the abdomen and pelvis was performed without the use of intravenous contrast. IV contrast: None. One or more dose lowering techniques were used consistent with the principles of ALARA (as low as reasonably achievable), including automatic exposure control, mA or kV adjustment to individual patient size, and/or use of iterative reconstruction. COMPARISON: None. CT DOSE (mGy.cm): The estimated cumulative dose is 3594.75. FINDINGS: Twisting Frame Fixer topogram: Median sternotomy wires and prosthetic aortic valve. Cardiomegaly. Image quality is degraded by body habitus and positioning of the arms over the abdomen. Lung bases: Multichamber enlargement of the heart. Coronary artery calcification. Prosthetic aortic valve. No pericardial or pleural effusion. Extensive bibasilar bandlike opacities with peribronchial vascular bundle thickening. Subsegmental endobronchial debris may be present. Liver: Normal morphology. Normal density. Biliary: No gross biliary ductal dilatation allowing for noncontrast technique. Gallstones or sludge suspected. Pancreas: Normal noncontrast appearance. Spleen: Normal noncontrast appearance. Adrenal glands: Normal noncontrast appearance. Kidneys and ureters: Macroscopic fat-containing lesion arising from the lower pole of the left kidney measuring 1.5 cm compatible with angiomyolipoma. A suspected smaller angiomyolipoma at the upper pole the left kidney. No nephrolithiasis or hydronephrosis. Ureters nondistended. Bladder: Circumferential bladder wall thickening. Pelvic organs: Prostate enlargement likely secondary to benign prostatic hyperplasia. Bowel: Limited diverticulosis of the proximal sigmoid and distal descending colon without wall thickening or pericolonic inflammatory change. The appendix is normal. No bowel obstruction. Peritoneal cavity: No free fluid or intraperitoneal gas. Lymph nodes: No gross lymphadenopathy allowing for noncontrast technique. Vasculature: Atherosclerosis of the abdominal aorta, which demonstrates mild infrarenal ectasia measuring 3.1 cm in diameter. Abdominal wall: Fat-containing left inguinal hernia. Musculoskeletal: Degenerative changes of the spine. Erosive changes of the inferior endplate of L1 with a prominent Schmorl's node, likely on a chronic and degenerative basis. No acute osseous injury. IMPRESSION: 1. Allowing for noncontrast technique, no acute intra-abdominal injury. 2. Suspected cholelithiasis versus biliary sludge. 3. Chronic bladder outlet obstruction secondary to prostatomegaly. 4. 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 5. Limited diverticulosis. 6. Peribronchovascular bundle thickening with bandlike opacities in the lung bases and potentially subsegmental endobronchial debris. These findings could relate to congestive change or chronic aspiration with superimposed atelectasis. Electronically signed by: Nasir Hernandez M.D. 12/06/2018 8:47 PM Dictated: 12/06/182041 Transcribed: 12/06/182041 Hospital Course (1) Sepsis: LLE Cellulitis Present on admission with erythema of LLE associated with fever Meet sepsis criteria on admission with Elevated WBC, Tachycardia, Elevated Temp Received Rocephin in the ER Blood cx no growth so far IV Doxycycline changed to oral doxycycline WBC back to normal LLE erythema/swelling improves significantly Continue Doxycycline for 7 days Diabetes HbA1C 9.2 on 11/13 On insulin and novolog sliding scale Monitor BS Continue monitor Chronic diastolic HF Last ECHO on 12/13 showed EF 60-65 % No signs of fluid overload Continue Lasix and spironolactone Continue monitor closely Chronic Kidney Disease stage 3 Creatinine stable at baseline 1.9 Continue monitor BMP Avoid nephrotoxic agents Stable History of endocarditis: Has a mechanical aortic valve present with a h/o endocarditis. Mechanical prosthesis remains competent at this time as per cardiology Very high risk for valve replacement due to morbidities and renal 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. Chronic atrial fibrillation Rate improves on metoprolol On coumadin with INR 3.0 today IV heparin drip discontinued Follow up with the coumadin clinic Morbid Obesity BMI 45.3 Counseling on weight lost Weakness S/P fall Continue to refused to go to rehab Continue PT/OT with home health services Fall precaution Respiratory failure Continue Bipap at night Continue oxygen supplement Stable DVT prophylaxis: On coumadin with INR 3 today CODE STATUS DNR/DNI Disposition DNR as per patient niece/POA, Ms. Moraes Mesfin. She requests updates from providers through [phone]. Dscharge home today with home health services Refused to go to rehab Total Time Total Time Spent Total Time Spent (In Minutes): 35 minutes Total Time Includes: Examination of the Patient, Discharge Planning, Medication Reconciliation, Communication With Other Providers and Other Discharge Plan Discharge Items Patient Disposition: Home - Home Health Services Reason For Visit: SEPSIS Discharge Diagnosis: Left Lower Extremity Cellulitis Diabetes Mellitus Chronic Kidney disease stage 3 Chronic diastolic Heart Failure Chronic atrial fibrillation Activity: Resume your previous activity Activity Comment: As tolerated Non-emergency contact: Primary Care Provider Call non-emergency contact if: you have any medication questions and your temperature is above 101 Follow-up/Referrals: Alise Buck MD [Primary Care Provider] - Diet: Carb Consistent or DM2 and Heart Healthy Addtl Attending Provider Instructions: Follow up with your primary care provider Dr. Buck on 12/14 @ 2:00 PM Continue physical and occupational therapy with home health services Follow up with the coumadin clinic Continue monitor PT/INR (INR 3 today ) Fall precaution Continue monitor your renal function and electrolytes (Your provider will monitor it) Complete the course of the antibiotic Continue monitor your blood sugar and bring blood sugar log at your next appointment with your provider. Pending Studies at Discharge: No Stand-Alone Forms: My [facility] Medications and DC Order Prescriptions: New doxycycline hyclate 100 mg Capsule 100 mg PO Q12H 7 Days Qty: 14 RF: 0 Continued atorvastatin 40 mg Tablet 40 mg PO QAM RF: 0 nitroglycerin 0.4 mg Tablet, Sublingual 0.4 mg Sublingual DIRECTED PRN (Reason: Chest Pain) RF: 0 docusate sodium 100 mg Capsule 100 mg PO AMHS RF: 0 folic acid 1 mg Tablet 1 mg PO QAM RF: 0 terazosin 2 mg Capsule 2 mg PO HS RF: 0 warfarin 2.5 mg tablet 2.5 mg PO PM RF: 0 spironolactone 25 mg tablet 12.5 mg PO QAM RF: 0 levothyroxine [Synthroid] 75 mcg tablet 75 mcg PO QAM RF: 0 ferrous sulfate 325 mg (65 mg iron) Tablet 325 mg PO QAM RF: 0 isosorbide mononitrate 60 mg Tablet Extended Release 24 Hr 60 mg PO QAM Qty: 0 RF: 0 aspirin [Aspirin Childrens] 81 mg Tablet,Chewable 0.5 tab PO AMHS RF: 0 Lantus Solostar U-100 Insulin 100 unit/mL (3 mL) insulin pen 24 units SQ AMHS RF: 0 metoprolol succinate 50 mg tablet extended release 24 hr 50 mg PO QAM RF: 0 terazosin 2 mg capsule 2 mg PO HS RF: 0 metoprolol succinate [Toprol XL] 25 mg tablet extended release 24 hr 25 mg PO HS RF: 0 insulin lispro [Humalog KwikPen Insulin] 100 unit/mL insulin pen 10 unit subcut TID RF: 0 Lasix 80 mg 80 mg PO BID RF: 0 Discharge Orders: Discharge Order (Routine); Ordered 12/10/18 Ordered By: Amee Pate Admission Data Admit Date/Time: 12/07/18 01:10 Attending Provider: Amee Pate Admit Provider: Danish Holly Primary Care Provider: Alise Buck Other Providers: Danish Holly Other Interventions: Discharge Summary Assessment (RN) Last Done: 12/10/18 15:10 DC Date/Time DO NOT enter until pt leaves facility: 12/10/18 16:38
== END 2018-12-10 16:38 | disposition home health service (06) | DRG 871 ==
LOC: ED 19:42 → 2N 12-07 01:10

== ENCOUNTER 2019-01-11 12:34 | Inpatient (IN) ==
[2019-01-11 13:53] LABS: Basophils # (auto) 0.07 K/uL (0-0.2); Basophils % (auto) 1.1 %; Eosinophils % (auto) 3.2 %; Hematocrit (blood only) 34.2 % (42-52); Hemoglobin 11.1 g/dL (14.0-18.0); Immature Granulocytes # (auto) 0.01 K/uL (0.00-0.02); Immature Granulocytes % (auto) 0.2 %; Lymphocytes # (auto) 1.42 K/uL (1.2-3.4); Lymphocytes % (auto) 22.9 %; Mean Corpuscular Hemoglobin 29.1 pg (25-34); Mean Corpuscular Hgb Conc 32.5 g/dL (32-36); Mean Corpuscular Volume 89.5 fL (80-100); Mean Platelet Volume 10.7 fL (7.4-10.4); Monocytes # (auto) 0.44 K/uL (0.11-0.59); Monocytes % (auto) 7.1 %; Neutrophils # (auto) 4.07 K/uL (1.4-6.5); Neutrophils % (auto) 65.5 %; Platelet Count 133 K/uL (130-400); RDW Standard Deviation 59.1 fL (36.4-46.3); Red Blood Count 3.82 M/uL (4.7-6.1); White Blood Count 6.21 K/uL (4.8-10.8)
[2019-01-11 14:11] LABS: BUN Creatinine Ratio 10.6 (10-20); Calcium 8.5 mg/dl (8.5-10.1); Est GFR (African American) 40.9; Est GFR (Non-African American) 35.3; Potassium 3.6 mmol/L (3.5-5.1)
--- NOTE | 2019-01-11 14:13 | CT Scan Report ---
CT head/brain wo con CLINICAL HISTORY: 78 years-old Male presenting with fall, confusion. TECHNIQUE: Multidetector CT imaging of the head was performed without the use of intravenous contrast . IV contrast: None. One or more dose lowering techniques were used consistent with the principles of ALARA (as low as reasonably achievable), including automatic exposure control, mA or kV adjustment t o individual patient size, and/or use of iterative reconstruction. COMPARISON: 12/06/2018. CT DOSE (mGy.cm): The estimated cumulative dose is 638.56 mGycm. FINDINGS: Smoking Tobacco Cutter Operator topogram: Unremarkable. Proportional ventricular and sulcal prominence, likely age-related parenchymal volume loss. No hemorr brisa. Periventricular and subcortical white matter hypoattenuation, nonspecific but likely indicative of chronic small vessel ischemic change. Redemonstration of the chronic left parietal lobe infarct i n the left MCA territory. No acute territorial infarct. No mass effect or midline shift. No extra-axi al fluid collection. Coastal thickening in the left maxillary sinus as on prior exam. Calvarium intac t. IMPRESSION: 1. No significant change compared to the prior study. Chronic small vessel ischemic change and old l eft MCA territory infarct. No acute intracranial abnormality. Electronically signed by: Nasir Hernandez M.D. 01/11/2019 2:11 PM
[2019-01-11 14:18] LABS: INR 1.5 (0.9-1.1); Partial Thromboplastin Ratio 1.1; Partial Thromboplastin Time 28.8 Seconds (21.0-31.0); Prothrombin Time 15.2 Seconds (9.0-12.0)
--- NOTE | 2019-01-11 14:57 | XRay Report ---
XR pelvis 1-2V routine CLINICAL HISTORY: 78 years-old Male presenting with fall, right hip pain. TECHNIQUE: Single frontal view of the pelvis was obtained. COMPARISON: Correlation made to CT of abdomen and pelvis from 12/06/2018. FINDINGS: Mildly comminuted intertrochanteric right femur fracture. Mild displacement of the lesser trochanteri c fracture fragment. No angulation at the primary fracture plane. Osteopenia is evident. The left fem oral neck is intact. Bony pelvis also intact. Arcuate lines of the sacrum poorly assessed due to calc ified iliac vessels, which appear aneurysmally dilated. IMPRESSION: 1. Mildly comminuted right intertrochanteric femur fracture. 2. Osteopenia. 3. Bilateral common iliac artery aneurysms. These were better characterized on recent CT. Electronically signed by: Nasir Hernandez M.D. 01/11/2019 2:56 PM
--- NOTE | 2019-01-11 14:59 | XRay Report ---
XR knee RT 2V routine CLINICAL HISTORY: 78 years-old Male presenting with fall. TECHNIQUE: Frontal and lateral views of the right knee were obtained. COMPARISON: None. FINDINGS: Suboptimal positioning limiting evaluation. Severe osteopenia also limits evaluation. The knee joint is congruent. Moderate medial joint space loss. Chondrocalcinosis may be present. Exuberant tricompar tmental osteophytosis. The degree of osteopenia and degenerative change degraded evaluation for acute osseous injury. Allowing for this, no fracture or acute malalignment is evident. Atherosclerosis. Po pliteal artery aneurysm is not excluded. IMPRESSION: 1. Allowing for the degree of osteopenia, no acute osseous injury. 2. Tricompartmental degenerative changes most severe in the medial compartment. Electronically signed by: Nasir Hernandez M.D. 01/11/2019 2:58 PM
--- NOTE | 2019-01-11 15:01 | XRay Report ---
XR femur RT 2V routine HISTORY: 78 years-old Male fall acute right hip pain status post fall COMPARISON: Pelvis radiograph of same day TECHNIQUE: 2 views of the right femur FINDINGS: There is an acute comminuted intertrochanteric fracture of the right femur with multiple adjacent dis placed fragments. Displaced lesser trochanteric fracture fragment measuring 3.1 cm is displaced super omedially approximately 3.6 cm. Intratrochanteric fracture demonstrates displacement measuring up to 1.6 cm. Minimal apex superior lateral angulation. Femoral head and neck appear intact. Moderate adjac ent soft tissue swelling. Demineralized appearance the bones. Mild to moderate right hip osteoarthrit is. The mid and distal aspects of the right femur appear intact. Tricompartmental osteoarthritis of t he right knee with moderate joint effusion. Peripheral arterial calcifications. IMPRESSION: 1. Acute mildly displaced and angulated comminuted intratrochanteric fracture of the right femur. 2. Moderate sized right knee joint effusion. The above report was generated using voice recognition software. It may contain grammatical, syntax o r spelling errors. Electronically signed by: Jose Goddard M.D. 01/11/2019 2:59 PM
[2019-01-11] MEDS ORDERED: MoRPHine SULFATE 4 MG/ML 1 ML CARP\\VIAL IV STA ×2 (15:02→16:54)
[2019-01-11] MEDS ORDERED: XYLOCAINE 1%/SOD BICARB 20 ML VIAL INFIL ONE (15:45)
--- NOTE | 2019-01-11 15:49 | Emergency Department Note ---
ED Provider Note Patient was seen and evaluated at the request of my attending physician, Dr. Flores, for a left fourth finger laceration. Please see Dr. Flores's dictation for full history of present illness and emergency department course outside of this repair. In short, the patient suffered a fall, with multiple resulting injuries. On exam he does have a 3.0 cm L-shaped laceration to the palmar aspect of the left fourth finger. This does gape and will require repair. Laceration repair. Patient elects to have their laceration repaired. Verbal consent was obtained to perform the procedure. There is an abundance of materials available for the procedure. Patient is not allergic to latex. Using sterile technique the wound was cleaned with Betadine. The area was sterilely draped. 4 ml of 1% buffered lidocaine was used to anesthetize the finger in a digital block fashion. Once the patient was anesthetized, the wound was copiously irrigated under pressure with sterile saline. The wound was explored and there were no deep structures injured such as tendons, bone, or significant blood vessels. The laceration was repaired using 5 simple interrupted 5-0 nylon sutures with the wound edges being well approximated. H emostasis was achieved. The area was cleaned with sterile saline and dressed with bacitracin ointment and bandage. Patient tolerated the procedure well without complications. Blood loss was negligible. 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) INR goal 2-3 Chronic atrial fibrillation (Chronic) Cerebrovascular disease (Chronic) Chronic diastolic heart failure (Chronic) ASCVD (arteriosclerotic cardiovascular disease) (Chronic) Hypothyroidism (Chronic) Hyperlipidemia (Chronic) PAF (paroxysmal atrial fibrillation) (Chronic) Diabetes type 2, uncontrolled (Chronic) Surgical History History of cardiac catheterization (Chronic) Nonobstructive CAD S/P aortic valve replacement (Chronic) Family History Other Coronary heart disease Social History Preferred Language: Spanish Communication Ability: Effective 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: No Beliefs That Will Affect Care: None marital status: Current Living Situation: Spouse Current Living Situation Comment: Other Information That Helps Us Care for You: No Feels Safe at Home: Yes Safety Concerns: Feels Safe At This Time Smoking Status: Current some day smoker Tobacco Type: cigars ; Cigarettes Per Day: cigar 1 day; hx of 1ppd x 45 yrs cigarettes ; Do You Dip or Chew Tobacco: No ; Second Hand Exposure: No ; Hx Alcohol Use: No Hx Substance Use: No Results & Data Vital Signs Vital Signs - 24 hr 01/11/19 12:41 01/11/19 12:43 01/11/19 12:50 Temperature 36.5 C Temperature Source Oral Sepsis Recent Fever Within 48 Hours No Sepsis Action Taken by Nursing No Action Required Pulse Rate 82 91 H 85 Pulse Rate [Apical] Pulse Rate from SpO2 Sensor 86 90 Respiratory Rate 15 20 26 H Respiratory Effort / Characteristics Non-Labored Respiratory Depth Normal Blood Pressure 167/97 H 167/97 H Blood Pressure [Right Arm] Blood Pressure Mean 120 120 Blood Pressure Mean [Right Arm] Pulse Oximetry 96 93 Oxygen Delivery Method 01/11/19 13:00 01/11/19 13:10 01/11/19 13:20 Temperature Temperature Source Sepsis Recent Fever Within 48 Hours Sepsis Action Taken by Nursing Pulse Rate 95 H 92 H 87 Pulse Rate [Apical] Pulse Rate from SpO2 Sensor 89 84 Respiratory Rate 20 22 17 Respiratory Effort / Characteristics Respiratory Depth Blood Pressure Blood Pressure [Right Arm] Blood Pressure Mean Blood Pressure Mean [Right Arm] Pulse Oximetry 98 97 Oxygen Delivery Method 01/11/19 13:30 01/11/19 13:40 01/11/19 13:50 Temperature Temperature Source Sepsis Recent Fever Within 48 Hours Sepsis Action Taken by Nursing Pulse Rate 83 74 82 Pulse Rate [Apical] Pulse Rate from SpO2 Sensor Respiratory Rate 20 21 20 Respiratory Effort / Characteristics Respiratory Depth Blood Pressure Blood Pressure [Right Arm] Blood Pressure Mean Blood Pressure Mean [Right Arm] Pulse Oximetry Oxygen Delivery Method 01/11/19 14:11 01/11/19 14:20 01/11/19 15:03 Temperature Temperature Source Sepsis Recent Fever Within 48 Hours Sepsis Action Taken by Nursing Pulse Rate 76 82 80 Pulse Rate [Apical] Pulse Rate from SpO2 Sensor 78 83 79 Respiratory Rate 20 19 15 Respiratory Effort / Characteristics Respiratory Depth Blood Pressure Blood Pressure [Right Arm] Blood Pressure Mean Blood Pressure Mean [Right Arm] Pulse Oximetry 96 90 94 Oxygen Delivery Method 01/11/19 15:04 01/11/19 15:10 01/11/19 15:20 Temperature Temperature Source Sepsis Recent Fever Within 48 Hours Sepsis Action Taken by Nursing Pulse Rate 82 74 82 Pulse Rate [Apical] 85 Pulse Rate from SpO2 Sensor 87 80 78 Respiratory Rate 22 28 H 22 Respiratory Effort / Characteristics Non-Labored Respiratory Depth Normal Blood Pressure 125/93 Blood Pressure [Right Arm] 125/93 Blood Pressure Mean 103 Blood Pressure Mean [Right Arm] 103 Pulse Oximetry 95 95 Oxygen Delivery Method Room Air 01/11/19 15:30 01/11/19 15:40 01/11/19 15:50 Temperature Temperature Source Sepsis Recent Fever Within 48 Hours Sepsis Action Taken by Nursing Pulse Rate 82 72 84 Pulse Rate [Apical] Pulse Rate from SpO2 Sensor 86 76 83 Respiratory Rate 20 18 23 Respiratory Effort / Characteristics Respiratory Depth Blood Pressure Blood Pressure [Right Arm] Blood Pressure Mean Blood Pressure Mean [Right Arm] Pulse Oximetry 95 95 91 Oxygen Delivery Method 01/11/19 16:00 01/11/19 16:10 Temperature Temperature Source Sepsis Recent Fever Within 48 Hours Sepsis Action Taken by Nursing Pulse Rate 77 77 Pulse Rate [Apical] Pulse Rate from SpO2 Sensor 83 78 Respiratory Rate 22 22 Respiratory Effort / Characteristics Respiratory Depth Blood Pressure Blood Pressure [Right Arm] Blood Pressure Mean Blood Pressure Mean [Right Arm] Pulse Oximetry 94 96 Oxygen Delivery Method Laboratory Data Result diagrams: 01/11/19 13:25 01/11/19 13:25 Lab Results 01/11/19 01/11/19 01/11/19 Range/Units 13:25 13:25 13:25 WBC 6.21 (4.8-10.8) K/uL RBC 3.82 L (4.7-6.1) M/uL Hgb 11.1 L (14.0-18.0) g/dL Hct 34.2 L (42-52) % MCV 89.5 (80-100) fL MCH 29.1 (25-34) pg MCHC 32.5 (32-36) g/dL RDW Std Deviation 59.1 H (36.4-46.3) fL RDW Coeff of Elizabeth 18.0 H (11.5-14.5) % Plt Count 133 (130-400) K/uL MPV 10.7 H (7.4-10.4) fL Immature Gran % (Auto) 0.2 % Neut % (Auto) 65.5 % Lymph % (Auto) 22.9 % Carter % (Auto) 7.1 % Eos % (Auto) 3.2 % Baso % (Auto) 1.1 % Immature Gran # (Auto) 0.01 (0.00-0.02) K/uL Neut # (Auto) 4.07 (1.4-6.5) K/uL Lymph # (Auto) 1.42 (1.2-3.4) K/uL Carter # (Auto) 0.44 (0.11-0.59) K/uL Eos # (Auto) 0.20 (0-0.5) K/uL Baso # (Auto) 0.07 (0-0.2) K/uL PT 15.2 H (9.0-12.0) Seconds INR 1.5 H (0.9-1.1) APTT 28.8 (21.0-31.0) Seconds PTT Ratio 1.1 Sodium 143 (136-145) mmol/L Potassium 3.6 (3.5-5.1) mmol/L Chloride 111 H (98-107) mmol/L Carbon Dioxide 27 (21-32) mmol/L Anion Gap 5.0 (3-11) BUN 19 H (7-18) mg/dl Creatinine 1.80 H (0.6-1.4) mg/dl Est Cr Clr Drug Dosing 47.0 ml/min Est GFR ( Amer) 40.9 Est GFR (Non-Af Amer) 35.3 BUN/Creatinine Ratio 10.6 (10-20) Glucose 90 (70-99) mg/dl Calcium 8.5 (8.5-10.1) mg/dl Administered Medications Heparin Sodium/Dextrose (Heparin Sodium/Dextrose) 25,000 units in 500 mls @ 35 mls/hr IV .[id number] [facility]; Protocol Stop: 01/12/19 04:00 Last Admin: 01/11/19 17:30 Dose: 1,750 units/hr, 35 mls/hr Documented by: [id number] Cosigned by: [id number] Ondansetron HCl (Zofran) 4 mg IV Q6H PRN PRN Reason: Nausea And Vomiting Stop: 02/10/19 16:54 Last Admin: 01/11/19 17:27 Dose: 4 mg Documented by: [id number] Discontinued Medications Heparin Sodium/Dextrose () 1 ea IV ONE ONE; Protocol Stop: 01/11/19 16:45 Last Admin: 01/11/19 17:32 Dose: 1 ea Documented by: [id number] Lidocaine HCl (Buffered Lidocaine 1%) 20 ml INFIL NOW ONE Stop: 01/11/19 15:46 Last Admin: 01/11/19 16:03 Dose: 20 ml Documented by: [id number] Morphine Sulfate (Morphine Sulfate) 4 mg IV NOW STA Stop: 01/11/19 15:03 Last Admin: 01/11/19 15:19 Dose: 4 mg Documented by: [id number] Morphine Sulfate (Morphine Sulfate) 4 mg IV NOW STA Stop: 01/11/19 16:55 Last Admin: 01/11/19 17:29 Dose: 4 mg Documented by: [id number] Morphine Sulfate (Morphine Sulfate) Confirm Administered Dose 4 mg .ROUTE .STK- MED ONE Stop: 01/11/19 17:23 Last Admin: 01/11/19 17:29 Dose: Not Given Documented by: [id number] Discharge Plan Visit Data Chief Complaint: Knee Injury/Pain Stated Complaint: fall/ R hip, leg pain ED Provider: Denton Flores Discharge Problem: Intertrochanteric fracture of right hip Patient Disposition: Being Evaluated by Hospitalist Discharge Instructions Interventions: ED Discharge Assessment Last Done: 01/11/19 18:00
--- NOTE | 2019-01-11 16:17 | History & Physical Report ---
Date of Service January 11, 2019 Assessment & Plan (1) Fall: (2) Intertrochanteric fracture of right hip: This is a 78-year-old male who has significant past medical history of CAD, history of AVR, paroxysmal atrial fibrillation, long-term anticoagulation on warfarin, T2DM, HTN, HLD, hypothyroidism, PVD, anemia of chronic disease, morbid obesity, history of prosthetic valve endocarditis, ascending aortic aneurysm who presents to [facility] ED due to fall prior to arrival. In ED patient found to have acute mildly displaced and angulated comminuted intertrochanteric fracture of the right femur. Lab work revealed a stable anemia with H&H of 11.1 and 34.2, platelet 133, WBC 6.21, INR 1.5, BUN 19, creatinine 1.80. In ED patient received IV morphine 4 mg x 2 for pain control. He did have a laceration on his left fourth distal pulp of finger repaired. Admit to PCU Chest x-ray and EKG ordered for preop purposes Consult orthopedics Dr. Lauren Consult cardiology for preoperative clearance given multiple cardiac morbidities Hold warfarin and bridge with IV heparin until 0400 01/12/19 N.p.o. after midnight Bedrest Pre-op antibiotics ordered MRSA swab IV morphine 4 mg as needed severe pain/oxycodone 5 mg as needed moderate pain incentive spirometry Place shrestha at 0700 10 AM labs (3) Laceration of finger of right hand: to be sutured in ED monitor wound healing (4) Coronary artery disease: hx of nonobstructive CAD hx of mechanical AVR with hx of prosthetic endocarditis 05/2018 continue ASA, Statin, Metoprolol, Imdur (5) T2DM (type 2 diabetes mellitus): A1C 6.9 01/02/19 On Lantus/humalog as outpt Continue Lantus/NovoLog per protocol (6) HTN (hypertension): blood pressure controlled continue metoprolol, torsemide, imdur, aldactone Pt on Terazosin for BPH monitor, likely to be elevated in setting of acute pain (7) Chronic atrial fibrillation: Continue metoprolol for rate control Hold warfarin, INR 1.5 Bridge with IV heparin until 0400 then stop for possible procedure in a.m. Present on Admission?: Yes (8) [facility] current use of anticoagulant: as above (9) CKD (chronic kidney disease), stage III: baseline Cr 1.9 bun/cr 19/1.8 monitor bmp avoid nephrotoxin drugs (10) Chronic diastolic heart failure: Pt appears euvolemic daily weights strict I and Os continue torsemide, aldactone, BB, imdur monitor renal fxn given diuretic (11) History of CVA (cerebrovascular accident): mild residual R weakness On ASA, Statin, warfarin hold warfarin and ASA (12) Anemia: H/H stable at 11.1 and 34.2 likely in setting of chronic disease and [facility] anticoag use normocytic/normchromic (13) History of endocarditis: 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 Buck upon discharge Patient was seen and examined in collaboration with Dr. Cee, please see adden dum Starting 01/12/19 patient will be under the care of Dr. Murphy History of Present Illness Chief Complaint: Fall prior to arrival. Primary Care Provider: Alise Buck MD This is a 78-year-old male who has significant past medical history of CAD, history of AVR, paroxysmal atrial fibrillation, long-term anticoagulation on warfarin, T2DM, HTN, HLD, hypothyroidism, PVD, anemia of chronic disease, morbid obesity, history of prosthetic valve endocarditis, ascending aortic aneurysm who presents to [facility] ED due to fall prior to arrival. Patient was in his scooter when he got up to ambulate with a cane into the bathroom. When he walked into the bathroom next thing he knew he was on the floor, and experiencing significant right leg and knee pain. He does not exactly remember how the fall occurred. He is unsure if he had true syncope. He denies feeling lightheaded or dizzy prior to fall.He was unable to get up and summoned EMS. Currently he feels much improved after receiving IV morphine, but states before pain medication he was in excruciating right leg and knee pain. He denies any recent illness, fever, chills, sweats, lightheadedness, dizziness, recent syncope, chest pain shortness of breath, palpitations, emesis, abdominal pain, dysuria, increased urgency with urination, melena, hematochezia, diarrhea. He does feel slightly nauseous secondary to pain medications. He does have increased frequency with urination secondary to diuretic use. He denies any orthopnea or PND but does use a recliner to sleep. Complains of slight increased lower extremity swelling but no pain or redness. At home with his . He is mostly sedentary and motorized scooter, but will ambulate with cane to use bathroom. He has been compliant with his medications. Last dose of Coumadin was last evening. Allergies Allergy/AdvReac Type Severity Reaction Status Date / Time No Known Allergies Allergy Unverified 01/11/19 14:22 Home Medications Home Medications Medication Instructions Recorded Confirmed Type atorvastatin 40 mg PO QAM 02/23/18 01/11/19 History docusate sodium 100 mg PO AMHS 02/23/18 01/11/19 History folic acid 1 mg PO QAM 02/23/18 01/11/19 History nitroglycerin 0.4 mg SUBLINGUAL DIRECTED PRN 02/23/18 01/11/19 History terazosin 2 mg PO HS 02/24/18 01/11/19 History Lantus Solostar U-100 Insulin 24 units SQ AMHS 07/10/18 01/11/19 History ferrous sulfate 325 mg PO QAM 10/25/18 01/11/19 History levothyroxine [Synthroid] 75 mcg PO QAM 10/25/18 01/11/19 History spironolactone 12.5 mg PO QAM 10/25/18 01/11/19 History warfarin 2.5 mg PO PM 10/25/18 01/11/19 History isosorbide mononitrate 60 mg PO QAM #0 tab 11/02/18 01/11/19 Rx insulin lispro [Humalog KwikPen 10 unit SUBCUT TID 12/06/18 01/11/19 History Insulin] metoprolol succinate 50 mg PO QAM 12/06/18 01/11/19 History metoprolol succinate [Toprol XL] 25 mg PO HS 12/06/18 01/11/19 History aspirin [Aspir-81] 81 mg PO QAM 01/11/19 01/11/19 History torsemide 40 mg PO 3XWK 01/11/19 01/11/19 History torsemide 60 mg PO 4XWK 01/11/19 01/11/19 History Past Med/Surg History Medical History Coronary artery disease (Chronic) T2DM (type 2 diabetes mellitus) (Chronic) HTN (hypertension) (Chronic) History of endocarditis (Chronic) 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 weeks 05/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 LBBB (left bundle branch block) (Chronic) PVD (peripheral vascular disease) (Chronic) 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 (Chronic) 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) INR goal 2-3 Chronic atrial fibrillation (Chronic) Cerebrovascular disease (Chronic) Chronic diastolic heart failure (Chronic) ASCVD (arteriosclerotic cardiovascular disease) (Chronic) Hypothyroidism (Chronic) Hyperlipidemia (Chronic) PAF (paroxysmal atrial fibrillation) (Chronic) Diabetes type 2, uncontrolled (Chronic) Surgical History History of cardiac catheterization (Chronic) Nonobstructive CAD S/P aortic valve replacement (Chronic) Family History Other Coronary heart disease Social History Preferred Language: [place] Communication Ability: Effective 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: No Beliefs That Will Affect Care: None marital status: Current Living Situation: Spouse Current Living Situation Comment: Other Information That Helps Us Care for You: No Feels Safe at Home: Yes Safety Concerns: Feels Safe At This Time Smoking Status: Current some day smoker Tobacco Type: cigars ; Cigarettes Per Day: cigar 1 day; hx of 1ppd x 45 yrs cigarettes ; Do You Dip or Chew Tobacco: No ; Second Hand Exposure: No ; Hx Alcohol Use: No Hx Substance Use: No Review of Systems Review of Systems: All systems reviewed & are unremarkable except as noted in HPI & below Physical Exam Physical Exam: Constitutional: WD/WN, elderly, M, obese, vitals as above, NAD, sitting up in bed, pleasant, conversing easily, drowsy due to narcotic Head: Normocephalic, Atraumatic Eyes: PERRL, conjunctivae normal, anicteric sclerae ENMT: external ear and nose normal, oropharynx normal but dry mucous membranes Neck: trachea midline, no thyromegaly normal visual inspection Respiratory: normal respiratory effort, lungs clear to auscultation, no wheeze, rales, rhonchi. Normal insp/exp effort, no accessory muscle use Cardiovascular: Irr/Irr, mechanical AV click noted throughout, b/l 1 pretibial edema noted with chronic venous stasis changes. B/L pedal pulse +1. Vessels: no JVD or carotid bruit Chest: normal inspection of chest, sternal scar noted Abdomen: normal bowel sounds, soft, nontender, no hepatosplenomegaly Musculoskeletal: no cyanosis or clubbing, RLE shortened and inverted. RLE proximal/lateral ecchymosis noted. RUE 3/5 strength, LUE/LLE 5/5 strength Skin: no rashes, warm and dry normal turgor , L 4th finger volar aspect distal to pulp laceration Neurologic: PERRL, EOMI, accommodation nl, no face palsy, no dysarthria CN's II-XI intact bilaterally and moves all extremities Psychiatric: A+Ox3, euthymic affect Lymphatic: no cervical or axillary lymphadenopathy : deferred Results & Data Vital Signs (Past 12 Hours) Vital Signs Temp Pulse Pulse Resp BP BP Pulse Ox 01/11/19 15:04 85 20 125/93 96 01/11/19 12:43 36.5 C 87 20 167/97 H 96 Laboratory Results Short CBC 01/11/19 01/11/19 Range/Units 13:25 13:25 WBC 6.21 (4.8-10.8) K/uL Hgb 11.1 L (14.0-18.0) g/dL Hct 34.2 L (42-52) % Plt Count 133 (130-400) K/uL Creatinine 1.80 H (0.6-1.4) mg/dl BMP 01/11/19 13:25 Sodium 143 Potassium 3.6 Chloride 111 H Carbon Dioxide 27 BUN 19 H Creatinine 1.80 H Glucose 90 Calcium 8.5 Diagnostic Findings Pelvis Xray: IMPRESSION: 1. Mildly comminuted right intertrochanteric femur fracture. 2. Osteopenia. 3. Bilateral common iliac artery aneurysms. These were better characterized on recent CT. Knee Xray: IMPRESSION: 1. Allowing for the degree of osteopenia, no acute osseous injury. 2. Tricompartmental degenerative changes most severe in the medial compartment. Head CT: IMPRESSION: 1. No significant change compared to the prior study. Chronic small vessel ischemic change and old left MCA territory infarct. No acute intracranial abnormality. Femur Xray: IMPRESSION: 1. Acute mildly displaced and angulated comminuted intratrochanteric fracture of the right femur. 2. Moderate sized right knee joint effusion. CXR: IMPRESSION: Platelike atelectasis both lung bases. Otherwise negative study. Medications Administered Discontinued Medications Lidocaine HCl (Buffered Lidocaine 1%) 20 ml INFIL NOW ONE Stop: 01/11/19 15:46 Last Admin: 01/11/19 16:03 Dose: 20 ml Documented by: [id number] Morphine Sulfate (Morphine Sulfate) 4 mg IV NOW STA Stop: 01/11/19 15:03 Last Admin: 01/11/19 15:19 Dose: 4 mg Documented by: [id number] Code Status & VTE Plan Code Status DNR Discussed with pt and in accordance with advance directive VTE Prophylaxis Plan VTE Prophylaxis will be ordered: Yes Supervising Physician Co-Signing Physician Notes HISTORY: Record reviewed. Patient interviewed and examined. Care coordinated with Duyen Rivera PA-C. Please refer to her documentation for detailed history. Briefly, 78-year-old male with history of ischemic heart disease, atrial fibrillation on warfarin, CHF, mechanical aortic valve replacement, left MCA ischemic stroke, diabetes mellitus type 2, history of group B strep endocarditis, and other problems as outlined. Has some residual right-sided weakness from his stroke. Fell today while transferring from scooter to bathroom with a cane. Patient not certain why he fell. No associated chest pain, palpitations, loss of consciousness. Experienced severe right hip pain after fall. EXAM: General- no distress Lungs- clear to auscultation; no respiratory distress Cardiovascular-irregularly irregular, mechanical valve sounds in aortic position, no gallop; + JVD; 1+ pretibial edema Abdomen- + bowel sounds, soft, nontender Extremities- no cyanosis; no calf tenderness; repair laceration left fourth finger; right hip pain Neuro- alert, oriented; moderate right hemiparesis; right facial palsy Skin- warm & dry DATA: Hemoglobin 11.1, white count 6200, platelet count 133,000. INR 1.5. Essentially normal electrolytes, BUN 19, creatinine 1.80, random glucose 90. Other lab studies as noted. Chest x-ray showed bibasilar atelectasis, no acute findings. X-ray right hip demonstrated mildly displaced and angulated comminuted intertrochanteric fracture of the right femur. CT of head showed old left MCA infarct. EKG performed at 1646 reviewed and demonstrated atrial fibrillation at 80/ minute, left bundle branch block; nonspecific ST-T wave abnormalities. ASSESSMENT AND PLAN: Intertrochanteric fracture of right hip. Medical problems include coronary artery disease, chronic atrial fibrillation, mechanical aortic valve replacement, history of stroke (probably cardioembolic), and diabetes. Management of hip fracture per geriatric hip fracture protocol. Consult Orthopedics and Anesthesiology. Cardiac problems include coronary artery disease, diastolic CHF, chronic atrial fibrillation, mechanical aortic valve replacement. Atrial fibrillation rate controlled with metoprolol. Anticoagulated with warfarin with an INR of 1.5. Anticoagulation should be maintained as much as possible preoperatively and postoperatively. IV heparin without bolus ordered. Will stop heparin at 0400 tomorrow morning in anticipation of surgical repair of hip fracture. Bridging anticoagulation with warfarin + heparin as soon as possible po stoperatively. Consult Cardiology. History of endocarditis earlier in 2019, but no fever or leukocytosis at this time. IV heparin and SCDs for VTE prophylaxis perioperatively. Resume warfarin when able postoperatively. Please refer to CHEN Rivera's documentation for discussion of other issues. (1) Fall Encounter type: initial encounter Qualified Code(s): W19.XXXA - Unspecified fall, initial encounter
[2019-01-11] MEDS ORDERED: Heparin IV Standard *NO* Bolus IV ONE (16:44)
[2019-01-11] MEDS ORDERED: HEPARIN SODIUM/DEXTROSE 25,000 UNITS/500 ML BAG IV SCH (16:44)
--- NOTE | 2019-01-11 16:54 | XRay Report ---
XR chest 1V portable CLINICAL HISTORY: pre op COMPARISON STUDY: 12/06/2018 FINDINGS: Prior median sternotomy. Platelike atelectasis both lung bases. Lungs otherwise are clear. IMPRESSION: Platelike atelectasis both lung bases. Otherwise negative study. The above report was generated using voice recognition software. It may contain grammatical, syntax or spelling errors. Electronically signed by: Zana Romero M.D. 01/11/2019 4:53 PM
[2019-01-11] MEDS ORDERED: MoRPHine SULFATE 4 MG/ML 1 ML CARP\\VIAL ONE (17:22)
[2019-01-11] MEDS: ONDANSETRON INJ 2 MG/ML 2 ML VIAL IV PRN (17:27)
--- NOTE | 2019-01-11 17:46 | Emergency Department Note ---
Entered by Ivory Moreira acting as a scribe for Denton Flores History of Present Illness General Chief complaint: Knee Injury/Pain Stated complaint: fall/ R hip, leg pain Time Seen by Provider: 01/11/19 13:03 Source: patient Mode of arrival: EMS Limitations: no limitations History of Present Illness Onset (ago): hour(s) 2 Location: lower extremity (right knee) Radiation: non-radiation Pain Consistency: + constant Maximum Pain Intensity: 10 Current Pain Intensity: 10 Relieved By: + none Exacerbated By: + movement Associated symptoms: no chest pain Treatments prior to arrival: none The patient is a 78 year old male who presents to the ED with complaints of right knee pain. He states he fell out of his motorized scooter while trying to get to the toilet. He complains of right knee pain, rating his pain as a 10/10 in severity. Movement worsens his pain. He does take daily Coumadin for a history of CVA. He denies any chest pain. Home Medications Home Medications Medication Instructions Recorded Confirmed Type atorvastatin 40 mg PO QAM 02/23/18 01/11/19 History docusate sodium 100 mg PO AMHS 02/23/18 01/11/19 History folic acid 1 mg PO QAM 02/23/18 01/11/19 History nitroglycerin 0.4 mg SUBLINGUAL DIRECTED PRN 02/23/18 01/11/19 History terazosin 2 mg PO HS 02/24/18 01/11/19 History Lantus Solostar U-100 Insulin 24 units SQ AMHS 07/10/18 01/11/19 History ferrous sulfate 325 mg PO QAM 10/25/18 01/11/19 History levothyroxine [Synthroid] 75 mcg PO QAM 10/25/18 01/11/19 History spironolactone 12.5 mg PO QAM 10/25/18 01/11/19 History warfarin 2.5 mg PO PM 10/25/18 01/11/19 History isosorbide mononitrate 60 mg PO QAM #0 tab 11/02/18 01/11/19 Rx insulin lispro [Humalog KwikPen 10 unit SUBCUT TID 12/06/18 01/11/19 History Insulin] metoprolol succinate 50 mg PO QAM 12/06/18 01/11/19 History metoprolol succinate [Toprol XL] 25 mg PO HS 12/06/18 01/11/19 History aspirin [Aspir-81] 81 mg PO QAM 01/11/19 01/11/19 History torsemide 40 mg PO 3XWK 01/11/19 01/11/19 History torsemide 60 mg PO 4XWK 01/11/19 01/11/19 History Allergies Allergy/AdvReac Type Severity Reaction Status Date / Time No Known Allergies Allergy Unverified 01/11/19 14:22 Past Med/Surg History Medical History Coronary artery disease (Chronic) T2DM (type 2 diabetes mellitus) (Chronic) HTN (hypertension) (Chronic) History of endocarditis (Chronic) 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 weeks 05/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 LBBB (left bundle branch block) (Chronic) PVD (peripheral vascular disease) (Chronic) 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 (Chronic) 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 (Chronic) INR goal 2-3 Chronic atrial fibrillation (Chronic) Cerebrovascular disease (Chronic) Chronic diastolic heart failure (Chronic) ASCVD (arteriosclerotic cardiovascular disease) (Chronic) Hypothyroidism (Chronic) Hyperlipidemia (Chronic) PAF (paroxysmal atrial fibrillation) (Chronic) Diabetes type 2, uncontrolled (Chronic) Surgical History History of cardiac catheterization (Chronic) Nonobstructive CAD S/P aortic valve replacement (Chronic) Family History Other Coronary heart disease Social History Preferred Language: Moroccan Communication Ability: Effective Director State Pharmacy Required: No Beliefs That Will Affect Care: None marital status: Current Living Situation: Spouse Current Living Situation Comment: Other Information That Helps Us Care for You: No Feels Safe at Home: Yes Safety Concerns: Feels Safe At This Time Smoking Status: Current some day smoker Tobacco Type: cigars ; Cigarettes Per Day: cigar 1 day; hx of 1ppd x 45 yrs cigarettes ; Do You Dip or Chew Tobacco: No ; Second Hand Exposure: No ; Hx Alcohol Use: No Hx Substance Use: No Review of Systems See HPI for pertinent positives & negatives. and A total of 10 systems reviewed and were otherwise negative Physical Exam Vital Signs Vital Signs - 24 hr 01/11/19 12:43 01/11/19 15:04 Temperature 36.5 C Temperature Source Oral Sepsis Recent Fever Within 48 Hours No Sepsis Action Taken by Nursing No Action Required Pulse Rate 87 Pulse Rate [Apical] 85 Respiratory Rate 20 20 Respiratory Effort / Characteristics Non-Labored Non-Labored Respiratory Depth Normal Normal Blood Pressure 167/97 H Blood Pressure [Right Arm] 125/93 Blood Pressure Mean 120 Blood Pressure Mean [Right Arm] 103 Pulse Oximetry 96 96 Oxygen Delivery Method Room Air GENERAL: He is oriented to person, place, and time. He appears well-developed and well-nourished. He does not appear distressed. HENT: Exam performed. - Head: Normocephalic and atraumatic. - Right Ear: External ear normal. No mastoid tenderness. - Left Ear: External ear normal. No mastoid tenderness. - Mouth/Throat: The oropharynx is clear and moist. No trismus in the jaw. No dental abscesses or uvula swelling. No oropharyngeal exudate or tonsillar abscesses. EYES: Conjunctivae and EOM are normal. Pupils are equal, round, and reactive to light. Right eye exhibits no discharge. Left eye exhibits no discharge. No scleral icterus. NECK: Normal range of motion. Neck supple. No JVD present. No spinous process tenderness present. No carotid bruit present. No rigidity. No tracheal deviation and normal range of motion present. No Brudzinski's sign and no Kernig's sign noted. CV: Normal rate, regular rhythm, normal heart sounds and intact distal pulses. There is no peripheral edema. Palpable radial pulses bue. PULM/CHEST: Effort normal and breath sounds normal. No respiratory distress. No stridor. He has no wheezes. He has no rales. - Chest Wall: He exhibits no tenderness. ABD: The abdomen is soft. Bowel sounds are normal. He has no distension. No mass is present. There is no tenderness. There is no rebound, no guarding, no Flower's sign and no tenderness at McBurney's point. Rovsig negative. MUSC/SKEL: Pain on palpation of right knee and right hip, RLE is shortened and externally rotated. LYMPH: No cervical adenopathy. NEURO: He is alert and oriented to person, place, and time. He has normal strength. Coordination and gait normal. GCS eye subscore is 4. GCS verbal subscore is 5. GCS motor subscore is 6. Cerebellar tests wnl. Right sided deficits are chronic from previous stroke. SKIN: Skin is warm and dry. He is not diaphoretic. PSYCH: He has a normal mood and affect. Behavior is normal. Judgment and thought content normal. Course 1310: The patient was evaluated in room B5 and a complete history and physical were performed. 1505: Vital signs stable. INR is subtherapeutic. Imaging shows right-sided hip fracture. Patient will be admitted to hospitalist service with orthopedic consult. I discussed the patients case with Duyen Cabezas PA-C, [facility]. The patient will be further evaluated. Consultations Consultation #1: I discussed the patients case with Duy[facility]C, [facility] The patient will be further evaluated. Time: 15:05 Administered Medications Heparin Sodium/Dextrose (Heparin Sodium/Dextrose) 25,000 units in 500 mls @ 35 mls/hr IV .[id number]; Protocol Stop: 01/12/19 04:00 Last Admin: 01/11/19 17:30 Dose: 1,750 units/hr, 35 mls/hr Documented by: [id number] Cosigned by: [id number] Ondansetron HCl (Zofran) 4 mg IV Q6H PRN PRN Reason: Nausea And Vomiting Stop: 02/10/19 16:54 Last Admin: 01/11/19 17:27 Dose: 4 mg Documented by: [id number] Discontinued Medications Heparin Sodium/Dextrose () 1 ea IV ONE ONE; Protocol Stop: 01/11/19 16:45 Last Admin: 01/11/19 17:32 Dose: 1 ea Documented by: [id number] Lidocaine HCl (Buffered Lidocaine 1%) 20 ml INFIL NOW ONE Stop: 01/11/19 15:46 Last Admin: 01/11/19 16:03 Dose: 20 ml Documented by: [id number] Morphine Sulfate (Morphine Sulfate) 4 mg IV NOW STA Stop: 01/11/19 15:03 Last Admin: 01/11/19 15:19 Dose: 4 mg Documented by: [id number] Morphine Sulfate (Morphine Sulfate) 4 mg IV NOW STA Stop: 01/11/19 16:55 Last Admin: 01/11/19 17:29 Dose: 4 mg Documented by: [id number] Morphine Sulfate (Morphine Sulfate) Confirm Administered Dose 4 mg .ROUTE .STK- MED ONE Stop: 01/11/19 17:23 Last Admin: 01/11/19 17:29 Dose: Not Given Documented by: [id number] Medical Decision Making Medical Records Attestation: I reviewed the patient's medical records. Home Medications Current Medication List: was personally reviewed by me Laboratory Data Attestation: I reviewed the patient's lab results. Result diagrams: 01/11/19 13:25 01/11/19 13:25 Lab Results 01/11/19 01/11/19 01/11/19 Range/Units 13:25 13:25 13:25 WBC 6.21 (4.8-10.8) K/uL RBC 3.82 L (4.7-6.1) M/uL Hgb 11.1 L (14.0-18.0) g/dL Hct 34.2 L (42-52) % MCV 89.5 (80-100) fL MCH 29.1 (25-34) pg MCHC 32.5 (32-36) g/dL RDW Std Deviation 59.1 H (36.4-46.3) fL RDW Coeff of Elizabeth 18.0 H (11.5-14.5) % Plt Count 133 (130-400) K/uL MPV 10.7 H (7.4-10.4) fL Immature Gran % (Auto) 0.2 % Neut % (Auto) 65.5 % Lymph % (Auto) 22.9 % [place] % (Auto) 7.1 % Eos % (Auto) 3.2 % Baso % (Auto) 1.1 % Immature Gran # (Auto) 0.01 (0.00-0.02) K/uL Neut # (Auto) 4.07 (1.4-6.5) K/uL Lymph # (Auto) 1.42 (1.2-3.4) K/uL [place] # (Auto) 0.44 (0.11-0.59) K/uL Eos # (Auto) 0.20 (0-0.5) K/uL Baso # (Auto) 0.07 (0-0.2) K/uL PT 15.2 H (9.0-12.0) Seconds INR 1.5 H (0.9-1.1) APTT 28.8 (21.0-31.0) Seconds PTT Ratio 1.1 Sodium 143 (136-145) mmol/L Potassium 3.6 (3.5-5.1) mmol/L Chloride 111 H (98-107) mmol/L Carbon Dioxide 27 (21-32) mmol/L Anion Gap 5.0 (3-11) BUN 19 H (7-18) mg/dl Creatinine 1.80 H (0.6-1.4) mg/dl Est Cr Clr Drug Dosing 47.0 ml/min Est GFR ( Amer) 40.9 Est GFR (Non-Af Amer) 35.3 BUN/Creatinine Ratio 10.6 (10-20) Glucose 90 (70-99) mg/dl Calcium 8.5 (8.5-10.1) mg/dl Imaging Data Radiologist's Impression: Radiology results as stated below per my review and the radiologist's interpretation: XR pelvis 1-2V routine CLINICAL HISTORY: 78 years-old Male presenting with fall, right hip pain. TECHNIQUE: Single frontal view of the pelvis was obtained. COMPARISON: Correlation made to CT of abdomen and pelvis from 12/06/2018. FINDINGS: Mildly comminuted intertrochanteric right femur fracture. Mild displacement of the lesser trochanteric fracture fragment. No angulation at the primary fracture plane. Osteopenia is evident. The left femoral neck is intact. Bony pelvis also intact. Arcuate lines of the sacrum poorly assessed due to calcified iliac vessels, which appear aneurysmally dilated. IMPRESSION: 1. Mildly comminuted right intertrochanteric femur fracture. 2. Osteopenia. 3. Bilateral common iliac artery aneurysms. These were better characterized on recent CT. Electronically signed by: Nasir Hernandez M.D. 01/11/2019 2:56 PM XR knee RT 2V routine CLINICAL HISTORY: 78 years-old Male presenting with fall. TECHNIQUE: Frontal and lateral views of the right knee were obtained. COMPARISON: None. FINDINGS: Suboptimal positioning limiting evaluation. Severe osteopenia also limits evaluation. The knee joint is congruent. Moderate medial joint space loss. Jaime drocalcinosis may be present. Exuberant tricompartmental osteophytosis. The degree of osteopenia and degenerative change degraded evaluation for acute osseous injury. Allowing for this, no fracture or acute malalignment is evident. Atherosclerosis. Popliteal artery aneurysm is not excluded. IMPRESSION: 1. Allowing for the degree of osteopenia, no acute osseous injury. 2. Tricompartmental degenerative changes most severe in the medial compartment. Electronically signed by: Nasir Hernandez M.D. 01/11/2019 2:[address] head/brain wo con CLINICAL HISTORY: 78 years-old Male presenting with fall, confusion. TECHNIQUE: Multidetector CT imaging of the head was performed without the use of intravenous contrast. IV contrast: None. One or more dose lowering techniques were used consistent with the principles of ALARA (as low as reasonably achievable), including automatic exposure control, mA or kV adjustment to individual patient size, and/or use of iterative reconstruction. COMPARISON: 12/06/2018. CT DOSE (mGy.cm): The estimated cumulative dose is 638.56 mGycm. FINDINGS: Environmental Health Officer topogram: Unremarkable. Proportional ventricular and sulcal prominence, likely age-related parenchymal volume loss. No hemorrhage. Periventricular and subcortical white matter hypoattenuation, nonspecific but likely indicative of chronic small vessel ischemic change. Redemonstration of the chronic left parietal lobe infarct in the left MCA territory. No acute territorial infarct. No mass effect or midline shift. No extra-axial fluid collection. Coastal thickening in the left maxillary sinus as on prior exam. Calvarium intact. IMPRESSION: 1. No significant change compared to the prior study. Chronic small vessel ischemic change and old left MCA territory infarct. No acute intracranial abnormality. Electronically signed by: Nasir Hernandez M.D. 01/11/2019 2:11 PM XR femur RT 2V routine HISTORY: 78 years-old Male fall acute right hip pain status post fall COMPARISON: Pelvis radiograph of same day TECHNIQUE: 2 views of the right femur FINDINGS: There is an acute comminuted intertrochanteric fracture of the right femur with multiple adjacent displaced fragments. Displaced lesser trochanteric fracture fragment measuring 3.1 cm is displaced superomedially approximately 3.6 cm. Intratrochanteric fracture demonstrates displacement measuring up to 1.6 cm. Minimal apex superior lateral angulation. Femoral head and neck appear intact. Moderate adjacent soft tissue swelling. Demineralized appearance the bones. Mild to moderate right hip osteoarthritis. The mid and distal aspects of the right femur appear intact. Tricompartmental osteoarthritis of the right knee with moderate joint effusion. Peripheral arterial calcifications. IMPRESSION: 1. Acute mildly displaced and angulated comminuted intratrochanteric fracture of the right femur. 2. Moderate sized right knee joint effusion. The above report was generated using voice recognition software. It may contain grammatical, syntax or spelling errors. Electronically signed by: Jose Goddard M.D. 01/11/2019 2:59 PM Blood Pressure Blood Pressure Findings: Elevated blood pressure Blood Pressure Disposition: further management by hospitalist MDM Narrative Vital signs stable. INR is subtherapeutic. Imaging shows right-sided hip fracture. Patient will be admitted to hospitalist service with orthopedic consult. I discussed the patients case with Duyen Cabezas PA-C, [facility]. The patient will be further evaluated. Impression & Plan Intertrochanteric fracture of right hip Discharge Plan Visit Data Chief Complaint: Knee Injury/Pain Stated Complaint: fall/ R hip, leg pain ED Provider: Denton Flores Discharge Problem: Intertrochanteric fracture of right hip Patient Disposition: Being Evaluated by Hospitalist Forms Stand Alone Forms: My [facility] Prescriptions Prescriptions: No Action atorvastatin 40 mg Tablet 40 mg PO QAM RF: 0 nitroglycerin 0.4 mg Tablet, Sublingual 0.4 mg Sublingual DIRECTED PRN (Reason: Chest Pain) RF: 0 docusate sodium 100 mg Capsule 100 mg PO AMHS RF: 0 folic acid 1 mg Tablet 1 mg PO QAM RF: 0 terazosin 2 mg Capsule 2 mg PO HS RF: 0 warfarin 2.5 mg tablet 2.5 mg PO PM RF: 0 spironolactone 25 mg tablet 12.5 mg PO QAM RF: 0 levothyroxine [Synthroid] 75 mcg tablet 75 mcg PO QAM RF: 0 ferrous sulfate 325 mg (65 mg iron) Tablet 325 mg PO QAM RF: 0 isosorbide mononitrate 60 mg Tablet Extended Release 24 Hr 60 mg PO QAM Qty: 0 RF: 0 Lantus Solostar U-100 Insulin 100 unit/mL (3 mL) insulin pen 24 units SQ AMHS RF: 0 metoprolol succinate 50 mg tablet extended release 24 hr 50 mg PO QAM RF: 0 metoprolol succinate [Toprol XL] 25 mg tablet extended release 24 hr 25 mg PO HS RF: 0 insulin lispro [Humalog KwikPen Insulin] 100 unit/mL insulin pen 10 unit subcut TID RF: 0 aspirin [Aspir-81] 81 mg Tablet,Delayed Release (Dr/Ec) 81 mg PO QAM RF: 0 torsemide 20 mg tablet 40 mg PO 3XWK RF: 0 torsemide 20 mg Tablet 60 mg PO 4XWK RF: 0 Referrals Referrals: Alise Buck MD [Primary Care Provider] - The scribe's documentation has been prepared under my direction and personally reviewed by me in its entirety. I confirm that the note above accurately reflects all work, treatment, procedures, and medical decision making performed by me.
[2019-01-11] MEDS ORDERED: NALOXONE HCL 0.4 MG/1 ML VIAL/CARP IV PRN (18:43)
[2019-01-11] MEDS ORDERED: GLUCAGON FOR INJ 1 MG VIAL SQ PRN (18:43)
[2019-01-11] MEDS ORDERED: NITROGLYCERIN SL 0.4 MG/TAB TAB SL PRN (18:43)
[2019-01-11] MEDS ORDERED: ACETAMINOPHEN 325 MG TAB PO PRN (18:43)
[2019-01-11] MEDS ORDERED: CARBOHYDRATES FOR HYPOGLYCEMIA PO PRN (18:43)
[2019-01-11] MEDS ORDERED: MAGNESIUM HYDROXIDE SUSP 30 ML UDC PO PRN (18:43)
[2019-01-11] MEDS ORDERED: bisacodyL 10 MG SUPP PR PRN (18:43)
[2019-01-11] MEDS ORDERED: GLUCOSE 10 TABS/TUBE PO PRN (18:43)
[2019-01-11] MEDS ORDERED: GLUCOSE 40% GEL 15 GM TUBE PO PRN (18:43)
[2019-01-11] MEDS ORDERED: DEXTROSE 50% 50 ML SYRINGE IV PRN (18:43)
[2019-01-11 19:28] LABS: INR 1.5 (0.9-1.1); Prothrombin Time 15.3 Seconds (9.0-12.0)
[2019-01-11] MEDS ORDERED: INSULIN ASPART 100 UNITS/ML 3 ML PEN SC SCH ×2 (19:30)
--- NOTE | 2019-01-11 19:35 | Orthopedic Consultation ---
Date of Consultation January 11, 2019 Assessment & Plan (1) Intertrochanteric fracture of right hip: He has a comminuted, displaced, right intertrochanteric hip fracture. This will require surgical intervention with a cephalo-medullary nail. He has numerous medical comorbidities, including several cardiac problems. He will require cardiology clearance prior to surgical intervention. Will also need to let his INR come down to about 1.2 or below. We will make a determination on surgical planning once he is cleared from a cardiology perspective. Risks, benefits, and alternatives of surgery were explained in detail. The surgical procedure, as well as postoperative recovery and rehabilitation, was also explained in detail. Risks include bleeding; infection; damage to surrounding structures such as nerves, blood vessels, and tendons that run in the area; persistent pain or stiffness; nonunion; malunion; hardware failure; painful prominent hardware requiring removal; or need for further surgery. He understands all of this and wishes to proceed with surgery. Preoperative workup was completed today, and informed consent was obtained. Present on Admission?: Yes History of Present Illness Reason for Consultation: Right hip pain Attending Physician: Yeyo Cee MD History of Present Illness Mr. Bartlett is a 78-year-old male with numerous medical problems, including coronary artery disease, atrial fibrillation, diabetes, mechanical aortic valve replacement with prosthetic valve endocarditis, ascending aortic aneurysm, previous stroke with residual right-sided weakness, and obesity. Due to his previous stroke, he normally mobilizes with a motorized scooter. He walks very short distances to the bathroom with a cane. He was attempting to walk to the bathroom when he had a ground-level fall. He says that he does not remember the fall, and it is unclear whether this was a syncopal episode. He had significant pain and inability to bear weight on his right hip after the fall. He denies any other significant injury other than the right hip. Allergies Allergy/AdvReac Type Severity Reaction Status Date / Time No Known Allergies Allergy Unverified 01/11/19 14:22 Home Medications Home Medications Medication Instructions Recorded Confirmed Type atorvastatin 40 mg PO QAM 02/23/18 01/11/19 History docusate sodium 100 mg PO AMHS 02/23/18 01/11/19 History folic acid 1 mg PO QAM 02/23/18 01/11/19 History nitroglycerin 0.4 mg SUBLINGUAL DIRECTED PRN 02/23/18 01/11/19 History terazosin 2 mg PO HS 02/24/18 01/11/19 History Lantus Solostar U-100 Insulin 24 units SQ AMHS 07/10/18 01/11/19 History ferrous sulfate 325 mg PO QAM 10/25/18 01/11/19 History levothyroxine [Synthroid] 75 mcg PO QAM 10/25/18 01/11/19 History spironolactone 12.5 mg PO QAM 10/25/18 01/11/19 History warfarin 2.5 mg PO PM 10/25/18 01/11/19 History isosorbide mononitrate 60 mg PO QAM #0 tab 11/02/18 01/11/19 Rx insulin lispro [Humalog KwikPen 10 unit SUBCUT TID 12/06/18 01/11/19 History Insulin] metoprolol succinate 50 mg PO QAM 12/06/18 01/11/19 History metoprolol succinate [Toprol XL] 25 mg PO HS 12/06/18 01/11/19 History aspirin [Aspir-81] 81 mg PO QAM 01/11/19 01/11/19 History torsemide 40 mg PO 3XWK 01/11/19 01/11/19 History torsemide 60 mg PO 4XWK 01/11/19 01/11/19 History Patient History Medical History Coronary artery disease (Chronic) T2DM (type 2 diabetes mellitus) (Chronic) HTN (hypertension) (Chronic) History of endocarditis (Chronic) 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 weeks 05/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 LBBB (left bundle branch block) (Chronic) PVD (peripheral vascular disease) (Chronic) 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 (Chronic) 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) INR goal 2-3 Chronic atrial fibrillation (Chronic) Cerebrovascular disease (Chronic) Chronic diastolic heart failure (Chronic) ASCVD (arteriosclerotic cardiovascular disease) (Chronic) Hypothyroidism (Chronic) Hyperlipidemia (Chronic) PAF (paroxysmal atrial fibrillation) (Chronic) Diabetes type 2, uncontrolled (Chronic) Surgical History History of cardiac catheterization (Chronic) Nonobstructive CAD S/P aortic valve replacement (Chronic) Family History Other Coronary heart disease Social History Preferred Language: Rwandan Communication Ability: Effective 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 There is mild swelling and ecchymosis and mild tenderness to palpation of the thigh and hip area. No skin lacerations or abrasions. Hip range of motion and strength are limited due to pain. Intact ankle and toe dorsiflexion and plantarflextion. Compartments are soft and compressible. No excessive pain with passive stretch. No instability. Sensation is intact to light touch in the superficial peroneal, deep peroneal, and tibial nerve distributions. Foot is warm and well-perfused. Results & Data Vital Signs (Past 12 Hours) Vital Signs Temp Pulse Pulse Resp BP BP Pulse Ox 01/11/19 18:41 36.6 C 94 H 20 158/93 H 92 01/11/19 17:57 87 130/85 94 01/11/19 17:50 90 18 97 01/11/19 17:40 88 17 97 01/11/19 17:30 88 17 01/11/19 17:20 78 20 01/11/19 17:10 82 20 01/11/19 17:00 87 26 H 155/121 H 01/11/19 16:50 81 22 98 01/11/19 16:40 87 24 94 01/11/19 16:31 79 23 115/82 95 01/11/19 16:30 85 25 H 93 01/11/19 16:20 82 23 96 01/11/19 16:10 77 22 96 01/11/19 16:00 77 22 94 01/11/19 15:50 84 23 91 01/11/19 15:40 72 18 95 01/11/19 15:30 82 20 95 01/11/19 15:20 82 22 01/11/19 15:10 74 28 H 95 01/11/19 15:04 82 85 22 125/93 125/93 95 01/11/19 15:03 80 15 94 01/11/19 14:20 82 19 90 01/11/19 14:11 76 20 96 01/11/19 13:50 82 20 01/11/19 13:40 74 21 01/11/19 13:30 83 20 01/11/19 13:20 87 17 01/11/19 13:10 92 H 22 97 01/11/19 13:00 95 H 20 98 01/11/19 12:50 85 26 H 01/11/19 12:43 36.5 C 91 H 20 167/97 H 93 01/11/19 12:41 82 15 167/97 H 96 Laboratory Results INR is 1.5 Diagnostic Findings X-rays of the right hip were reviewed. They show a comminuted, displaced, intertrochanteric hip fracture extending through the lesser trochanter.
--- NOTE | 2019-01-11 19:56 | Anesthesiology Consultation ---
Date of Service January 11, 2019 Patient has a history of mechanical AVR and endocarditis. 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 Medicine has placed the patient on heparin drip and ortho would like INR at or below 1.2 prior to surgery. No signs of acute CHF or MAYLIN on this admission, but we appreciate the planned cardiology evaluation. Heparin drip will need to be held for at least 2 hours prior to surgery if the patient is to have a spinal, and would recheck PTT for a value less than 40 after two hours. Will put a hold on 2u RBC given his anemia, cardiac disease, and coagulopathy. Assessment & Plan (1) Encounter for pre-operative examination: Chart Review Chart Review: Acceptable Risk for Surgery and Patient NOT seen in Pre Admission Testing History Height/Weight Height: 6 ft Weight: 129.4 kg Allergies Allergy/AdvReac Type Severity Reaction Status Date / Time No Known Allergies Allergy Unverified 01/11/19 14:22 Medications Home Medications Medication Instructions Recorded Confirmed Last Taken atorvastatin 40 mg PO QAM 02/23/18 01/11/19 12/06/18 docusate sodium 100 mg PO AMHS 02/23/18 01/11/19 12/06/18 folic acid 1 mg PO QAM 02/23/18 01/11/19 12/06/18 nitroglycerin 0.4 mg SUBLINGUAL DIRECTED PRN 02/23/18 01/11/19 Unknown terazosin 2 mg PO HS 02/24/18 01/11/19 12/05/18 Lantus Solostar U-100 Insulin 24 units SQ AMHS 07/10/18 01/11/19 12/06/18 ferrous sulfate 325 mg PO QAM 10/25/18 01/11/19 12/06/18 levothyroxine [Synthroid] 75 mcg PO QAM 10/25/18 01/11/19 12/06/18 spironolactone 12.5 mg PO QAM 10/25/18 01/11/19 12/06/18 warfarin 2.5 mg PO PM 10/25/18 01/11/19 12/06/18 isosorbide mononitrate 60 mg PO QAM #0 tab 11/02/18 01/11/19 12/06/18 insulin lispro [Humalog KwikPen 10 unit SUBCUT TID 12/06/18 01/11/19 12/06/18 Insulin] metoprolol succinate 50 mg PO QAM 12/06/18 01/11/19 12/06/18 metoprolol succinate [Toprol XL] 25 mg PO HS 12/06/18 01/11/19 12/05/18 aspirin [Aspir-81] 81 mg PO QAM 01/11/19 01/11/19 Unknown torsemide 40 mg PO 3XWK 01/11/19 01/11/19 Unknown torsemide 60 mg PO 4XWK 01/11/19 01/11/19 Unknown Active Medications Generic Name Dose Route Start Last Admin Trade Name Freq PRN Reason Stop Dose Admin Heparin Sodium/Dextrose 25,000 units in 500 mls @ 35 mls/hr 01/11/19 16:44 01/11/19 17:30 Heparin Sodium/Dextrose IV 01/12/19 04:00 1,750 units/hr .[id number] JOYCE 35 mls/hr Administration Protocol 1,750 UNITS/HR Ondansetron HCl 4 mg 01/11/19 16:55 01/11/19 17:27 Zofran IV 02/10/19 16:54 4 mg Q6H PRN Administration Nausea And Vomiting Past Medical History Medical History Coronary artery disease (Chronic) T2DM (type 2 diabetes mellitus) (Chronic) HTN (hypertension) (Chronic) History of endocarditis (Chronic) 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 weeks 05/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 LBBB (left bundle branch block) (Chronic) PVD (peripheral vascular disease) (Chronic) 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 (Chronic) 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) INR goal 2-3 Chronic atrial fibrillation (Chronic) Cerebrovascular disease (Chronic) Chronic diastolic heart failure (Chronic) ASCVD (arteriosclerotic cardiovascular disease) (Chronic) Hypothyroidism (Chronic) Hyperlipidemia (Chronic) PAF (paroxysmal atrial fibrillation) (Chronic) Diabetes type 2, uncontrolled (Chronic) Past Family History Family History Other Coronary heart disease Past Surgical History Surgical History History of cardiac catheterization (Chronic) Nonobstructive CAD S/P aortic valve replacement (Chronic) Social History Smoking Status: Current some day smoker tobacco type: cigars Smoking cigarettes per day: cigar 1 day; hx of 1ppd x 45 yrs cigarettes Do You Dip or Chew Tobacco: No Hx Alcohol Use: No Alcohol type: beer alcohol intake frequency: holidays/special occasions only Hx Substance Use: No Physical Exam Vital Signs Last Vital Signs Temp 36.6 C 01/11/19 18:41 Pulse 94 H 01/11/19 18:41 Resp 20 01/11/19 18:41 BP 158/93 H 01/11/19 18:41 Pulse Ox 92 01/11/19 18:41 Testing Laboratory Results 01/11/19 13:25 01/11/19 13:25 PT 15.3 Seconds (9.0-12.0) H 01/11/19 19:07 INR 1.5 (0.9-1.1) H 01/11/19 19:07 APTT 28.8 Seconds (21.0-31.0) 01/11/19 13:25 01/11/19 18:36 POC Glucose 107 H
[2019-01-11] MEDS ORDERED: SODIUM CHLORIDE 0.9% 250 ML IV PRN (19:59)
[2019-01-11] MEDS: METOPROLOL SUCC 25MG EXT REL TAB PO SCH (21:11)
[2019-01-11] MEDS: TERAZOSIN HCL 1 MG CAP PO SCH (21:11)
[2019-01-11] MEDS: DOCUSATE SODIUM/SENNA 50/8.6MG TAB PO SCH (21:11)
[2019-01-11] MEDS: INSULIN GLARGINE SOLOSTAR 100 UNITS/ML 3 ML PEN SC SCH (21:12)
[2019-01-11] MEDS: INSULIN ASPART 100 UNITS/ML 3 ML PEN SC SCH (21:13)
[2019-01-12 01:44] LABS: Hematocrit (blood only) 30.1 % (42-52); Hemoglobin 9.3 g/dL (14.0-18.0); Mean Corpuscular Hemoglobin 28.5 pg (25-34); Mean Corpuscular Hgb Conc 30.9 g/dL (32-36); Mean Corpuscular Volume 92.3 fL (80-100); Mean Platelet Volume 10.3 fL (7.4-10.4); Platelet Count 107 K/uL (130-400); RDW Standard Deviation 60.8 fL (36.4-46.3); Red Blood Count 3.26 M/uL (4.7-6.1); White Blood Count 7.62 K/uL (4.8-10.8)
[2019-01-12 02:04] LABS: Albumin Level 2.4 gm/dl (3.4-5.0); BUN Creatinine Ratio 10.9 (10-20); Calcium 7.7 mg/dl (8.5-10.1); Creatinine Clr Calc Pharmacy 43.2 ml/min; Est GFR (African American) 36.9; Est GFR (Non-African American) 31.8
[2019-01-12 02:05] LABS: Partial Thromboplastin Ratio 4.5
[2019-01-12 02:07] LABS: Albumin Globulin Ratio 0.6 (0.9-2); Bilirubin,Total 0.7 mg/dl (0.2-1); Globulin 3.8 gm/dl (2.5-4.0); Total Protein 6.2 gm/dl (6.4-8.2)
[2019-01-12 02:16] LABS: Partial Thromboplastin Time 121.6 Seconds (21.0-31.0)
[2019-01-12] MEDS ORDERED: CEFAZOLIN 3000MG 72.5 ML IV SCH (06:00)
[2019-01-12] MEDS ORDERED: CEFAZOLIN 3000MG 65 ML IV SCH (06:00)
[2019-01-12 06:13] LABS: Estimated Average Glucose 137 mg/dl; Hemoglobin A1C 6.4 % (4.5-5.6)
[2019-01-12] MEDS: LEVOTHYROXINE SODIUM 75 MCG TABLET PO SCH (06:20)
[2019-01-12] MEDS: INSULIN GLARGINE SOLOSTAR 100 UNITS/ML 3 ML PEN SC SCH ×2 (07:53→20:42)
[2019-01-12] MEDS: INSULIN ASPART 100 UNITS/ML 3 ML PEN SC SCH ×4 (07:54→20:44)
[2019-01-12] MEDS: ATORVASTATIN 40 MG TAB PO SCH (07:59)
[2019-01-12] MEDS: OXYCODONE HCL IR 5 MG TAB (IMMEDIATE RELEASE) PO PRN ×2 (07:59→20:50)
[2019-01-12] MEDS: FOLIC ACID 1 MG TAB PO SCH (07:59)
[2019-01-12] MEDS: FERROUS SULFATE 325 MG TAB PO SCH (08:00)
[2019-01-12] MEDS: SPIRONOLACTONE 25 MG TAB PO SCH (08:01)
[2019-01-12] MEDS: ISOSORBIDE MONO EXTENDED REL 60 MG TABCR PO SCH (08:02)
[2019-01-12] MEDS: ASPIRIN 81 MG ECTAB PO SCH (08:02)
[2019-01-12 08:10] LABS: INR 1.5 (0.9-1.1); Prothrombin Time 14.8 Seconds (9.0-12.0)
--- NOTE | 2019-01-12 08:15 | Cardiology Consultation ---
Date of Consultation January 12, 2019 Assessment & Plan (1) Intertrochanteric fracture of right hip: Plan for ORIF today with ortho Coumadin on hold IV heparin to be continued pending surgery time, held 2 hours prior to surgery. (2) S/P aortic valve replacement: Mechanical valve Will need to resume heparin in the post op setting, transition then to Coumadin. Recent echo demonstrating appropriate function of AVR and preserved LV systolic function (3) LBBB (left bundle branch block): Chronic, unchanged. (4) Chronic atrial fibrillation: Rates controlled Continue home dose metoprolol Heparin to coumadin in the post op setting (5) Chronic diastolic heart failure: Diuertics on hold today for surgery Appears euvolemic. Chronic pedal edema, unchanged Monitor fluid status closely. Likely resume oral diuretics tomorrow Stable cardiac symptoms. Given his comorbidities, he is considered at least moderate risk for perioperative cardiac complications. He currently has no anginal or CHF complaints. He is considered optimized from a cardiac standpoint. No further cardiac testing warranted prior to planned orthopedic surgery. Continue home cardiac medications. Resume heparin in the post op setting given history of mechanical AVR, afib, history of CVA, and for DVT proph. Case discussed with Dr. Ballard Supervising Physician Co-Signing Physician Notes Patient seen and examined with Kinga Dowling PA-C. Agree with findings and assessment as above. A little more lethargic during me eval after receiving pain meds. Once again counseled that he would be a moderate to high risk for perioperative cardiovascular event given extensive cardiac hx but he is medically optimized from a cardiac standpoint. Pt states that he understands, he is accepting of the risk and wishes to proceed with surgery. No need to delay from a cardiac standpoint. Will follow postoperatively. General: Awake, alert and oriented x 3. No acute distress. HEENT: Normocephalic, atraumatic. Pupils equal, round and reactive to light and accommodation. Extraocular muscles are intact. Anicteric sclera. Moist mucous membranes. Neck: No JVD. No bruit. Cardiovascular: irregularly irregular, metallic S2 with 3/6 mid to late NIURKA. Pulmonary: Clear to auscultation bilaterally. No rales, rhonchi, or wheezing. Abdomen: Bowel sounds x 4, soft. No rebound, guarding or tenderness. No organomegaly. Extremities: No clubbing, cyanosis or edema. +2 pedal pulses bilaterally. Skin: Warm and dry. History of Present Illness Reason for Consultation: Preop Cardiovascular Risk Assessment; Hip Fx; Afib, Mechanical aortic valve Requesting Physician: Tiffany Rivera PA-C Attending Physician: Dr. Kelvin Ballard History of Present Illness Patient is a complex 78 year old male, known to [facility], following with Branden Olivares PA-C. Complex history detailed below. Presents to ER after fall at home with significant right hip pain, resulting in acute Right hip fracture. He was trying to ambulate from his scooter into the bathroom with a cane. He does not recall why or how he fell. Next thing he remembers he was on the floor and unable to stand. He is unsure if he lost consciousness or just lost his balance. No witnesses. He has a history of gait instability. Otherwise he reports in normal state of health recently. Diuretics were titrated slightly last week at cardio visit due to LE edema and mild weight gain, but he was not overtly symptomatic. No recent chest pain. No orthopnea, PND. Patient reports stable edema. No recent dizziness or near syncopal spells. No fever, cough, chills. Upon arrival to ER he was diagnosed with acute right hip fracture. Plan for surgery later today. Coumadin held, started on IV heparin given mechanical AVR and chronic afib. Heart rates well controlled. Patient resting comfortably at time of consult and denies acute cardiac complaints. History 1. Severe aortic 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 with an ascending aortic aneurysm status post May 2007 aortic valve replacement and ascending aorta repair with a #[address] [facility] [facility] composite graft with reimplantation of the epicardial coronary arteries, cardiac tamponade secondary to a large pericardial effusion status post emergent evacuation with redo sternotomy on 06/29/2007 2. Mild ASCVD by May 01, 2007 catheterization. 20-30% mid LAD stenosis, 20% diagonal stenosis, 30% LCX stenosis, and a 20-40% RCA stenosis with EF of 45% by LV gram 3. June 13, 2015 diagnostic cardiac catheterization at [facility] revealed mild nonobstructive coronary artery disease with normally functioning mechanical aortic valve. Specific angiography revealed an ectatic LM, 40% mid LAD lesion, 40% mid LCX stenosis, and a dominant RCA with 40% mid vessel stenosis. 4. 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 Completed 6 weeks of IV Rocephin as of 07/21/2018. Vegetation resolved per repeat [place] 10/2018. 5. Chronic diastolic congestive heart failure 6. History of iron deficiency. 7. 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 8. Paroxysmal atrial fibrillation 9. 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 Mild carotid occlusive disease 11. Hypertension 12. Dyslipidemia 13. Type II diabetes mellitus 14. Chronic renal 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 15. COPD with past tobacco abuse 16. Hypothyroidism 17. Obesity Allergies Allergy/AdvReac Type Severity Reaction Status Date / Time No Known Allergies Allergy Unverified 01/11/19 14:22 Home Medications Home Medications Medication Instructions Recorded Confirmed Type atorvastatin 40 mg PO QAM 02/23/18 01/11/19 History docusate sodium 100 mg PO AMHS 02/23/18 01/11/19 History folic acid 1 mg PO QAM 02/23/18 01/11/19 History nitroglycerin 0.4 mg SUBLINGUAL DIRECTED PRN 02/23/18 01/11/19 History terazosin 2 mg PO HS 02/24/18 01/11/19 History Lantus Solostar U-100 Insulin 24 units SQ AMHS 07/10/18 01/11/19 History ferrous sulfate 325 mg PO QAM 10/25/18 01/11/19 History levothyroxine [Synthroid] 75 mcg PO QAM 10/25/18 01/11/19 History spironolactone 12.5 mg PO QAM 10/25/18 01/11/19 History warfarin 2.5 mg PO PM 10/25/18 01/11/19 History isosorbide mononitrate 60 mg PO QAM #0 tab 11/02/18 01/11/19 Rx insulin lispro [Humalog KwikPen 10 unit SUBCUT TID 12/06/18 01/11/19 History Insulin] metoprolol succinate 50 mg PO QAM 12/06/18 01/11/19 History metoprolol succinate [Toprol XL] 25 mg PO HS 12/06/18 01/11/19 History aspirin [Aspir-81] 81 mg PO QAM 01/11/19 01/11/19 History torsemide 40 mg PO 3XWK 01/11/19 01/11/19 History torsemide 60 mg PO 4XWK 01/11/19 01/11/19 History Patient History Medical History Coronary artery disease (Chronic) T2DM (type 2 diabetes mellitus) (Chronic) HTN (hypertension) (Chronic) History of endocarditis (Chronic) 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 weeks 05/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 LBBB (left bundle branch block) (Chronic) PVD (peripheral vascular disease) (Chronic) 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 (Chronic) group home current use of anticoagulant (Chronic) INR goal 2-3 Chronic atrial fibrillation (Chronic) Cerebrovascular disease (Chronic) Chronic diastolic heart failure (Chronic) ASCVD (arteriosclerotic cardiovascular disease) (Chronic) Hypothyroidism (Chronic) Hyperlipidemia (Chronic) PAF (paroxysmal atrial fibrillation) (Chronic) Diabetes type 2, uncontrolled (Chronic) Surgical History History of cardiac catheterization (Chronic) Nonobstructive CAD S/P aortic valve replacement (Chronic) Family History Other Coronary heart disease Social History Preferred Language: Syriac Communication Ability: Effective Waterside Worker Required: No Beliefs That Will Affect Care: None marital status: Current Living Situation: Spouse Current Living Situation Comment: Other Information That Helps Us Care for You: No Feels Safe at Home: Yes Safety Concerns: Feels Safe At This Time Smoking Status: Current some day smoker Tobacco Type: cigars ; Cigarettes Per Day: cigar 1 day; hx of 1ppd x 45 yrs cigarettes ; Do You Dip or Chew Tobacco: No ; Second Hand Exposure: No ; Hx Alcohol Use: No Hx Substance Use: No Review of Systems Review of Systems: All systems reviewed & are unremarkable except as noted in HPI & below Physical Exam Constitutional: WD/WN, vitals as above well nourished and + obese; no acute distress Respiratory: normal respiratory effort, lungs clear to auscultation Cardiovascular: Rate/Rhythm: + irregularly irregular Heart Sounds: + murmur (II/ systolic murmur) Vessels: no JVD Extremities: + edema (1+ pedal and ankle edema b/l (chronic per patient)) Gastrointestinal (Abdomen): normal bowel sounds, soft, nontender, no hepatosplenomegaly Psychiatric: A+Ox3, euthymic affect Results & Data Vital Signs (Past 12 Hours) Vital Signs Temp Pulse Resp BP Pulse Ox Pulse Ox 01/12/19 07:31 36.5 C 95 H 22 97/67 L 95 01/12/19 04:00 36.5 C 78 17 100/63 96 94 01/12/19 00:11 93 01/12/19 00:00 36.6 C 82 22 105/64 94 Laboratory Results 01/12/19 01/12/19 01/12/19 Range/Units 07:45 07:45 07:45 WBC (4.8-10.8) K/uL RBC (4.7-6.1) M/uL Hgb (14.0-18.0) g/dL Hct (42-52) % MCV (80-100) fL MCH (25-34) pg MCHC (32-36) g/dL RDW Std Deviation (36.4-46.3) fL RDW Coeff of Elizabeth (11.5-14.5) % Plt Count (130-400) K/uL MPV (7.4-10.4) fL Immature Gran % (Auto) % Neut % (Auto) % Lymph % (Auto) % [place] % (Auto) % Eos % (Auto) % Baso % (Auto) % Immature Gran # (Auto) (0.00-0.02) K/uL Neut # (Auto) (1.4-6.5) K/uL Lymph # (Auto) (1.2-3.4) K/uL [place] # (Auto) (0.11-0.59) K/uL Eos # (Auto) (0-0.5) K/uL Baso # (Auto) (0-0.2) K/uL PT (9.0-12.0) Seconds INR (0.9-1.1) APTT (21.0-31.0) Seconds PTT Ratio Sodium 143 (136-145) mmol/L Potassium 4.3 (3.5-5.1) mmol/L Chloride 109 H (98-107) mmol/L Carbon Dioxide 29 (21-32) mmol/L Anion Gap 5.0 (3-11) BUN 24 H (7-18) mg/dl Creatinine 2.10 H (0.6-1.4) mg/dl Est Cr Clr Drug Dosing 40.3 ml/min Est GFR ( Amer) 33.9 Est GFR (Non-Af Amer) 29.3 BUN/Creatinine Ratio 11.4 (10-20) Glucose 145 H (70-99) mg/dl POC Glucose (70-99) Estimat Average Glucose mg/dl Hemoglobin A1c (4.5-5.6) % Calcium 8.0 L (8.5-10.1) mg/dl Ionized Calcium (1.12-1.32) mmol/L Magnesium 2.1 (1.8-2.4) mg/dl Total Bilirubin (0.2-1) mg/dl AST (15-37) U/L ALT (12-78) U/L Alkaline Phosphatase (45-117) U/L NT-Pro-B Natriuret Pep Cancelled Pending Total Protein (6.4-8.2) gm/dl Albumin (3.4-5.0) gm/dl Globulin (2.5-4.0) gm/dl Albumin/Globulin Ratio (0.9-2) 25-OH Vitamin D Total (30-100) ng/ml TSH Cancelled Pending Nasal Screen MRSA (PCR) (Negative) Blood Type Antibody Screen Crossmatch 01/12/19 01/12/19 01/12/19 Range/Units 07:45 07:45 07:30 WBC (4.8-10.8) K/uL RBC (4.7-6.1) M/uL Hgb (14.0-18.0) g/dL Hct (42-52) % MCV (80-100) fL MCH (25-34) pg MCHC (32-36) g/dL RDW Std Deviation (36.4-46.3) fL RDW Coeff of Elizabeth (11.5-14.5) % Plt Count (130-400) K/uL MPV (7.4-10.4) fL Immature Gran % (Auto) % Neut % (Auto) % Lymph % (Auto) % [place] % (Auto) % Eos % (Auto) % Baso % (Auto) % Immature Gran # (Auto) (0.00-0.02) K/uL Neut # (Auto) (1.4-6.5) K/uL Lymph # (Auto) (1.2-3.4) K/uL [place] # (Auto) (0.11-0.59) K/uL Eos # (Auto) (0-0.5) K/uL Baso # (Auto) (0-0.2) K/uL PT 14.8 H (9.0-12.0) Seconds INR 1.5 H (0.9-1.1) APTT (21.0-31.0) Seconds PTT Ratio Sodium (136-145) mmol/L Potassium (3.5-5.1) mmol/L Chloride (98-107) mmol/L Carbon Dioxide (21-32) mmol/L Anion Gap (3-11) BUN (7-18) mg/dl Creatinine (0.6-1.4) mg/dl Est Cr Clr Drug Dosing ml/min Est GFR ( Amer) Est GFR (Non-Af Amer) BUN/Creatinine Ratio (10-20) Glucose (70-99) mg/dl POC Glucose 175 H (70-99) Estimat Average Glucose mg/dl Hemoglobin A1c (4.5-5.6) % Calcium (8.5-10.1) mg/dl Ionized Calcium 1.07 L (1.12-1.32) mmol/L Magnesium (1.8-2.4) mg/dl Total Bilirubin (0.2-1) mg/dl AST (15-37) U/L ALT (12-78) U/L Alkaline Phosphatase (45-117) U/L NT-Pro-B Natriuret Pep Total Protein (6.4-8.2) gm/dl Albumin (3.4-5.0) gm/dl Globulin (2.5-4.0) gm/dl Albumin/Globulin Ratio (0.9-2) 25-OH Vitamin D Total (30-100) ng/ml TSH Nasal Screen MRSA (PCR) (Negative) Blood Type Antibody Screen Crossmatch 01/12/19 01/12/19 01/12/19 Range/Units 06:00 01:29 01:29 WBC (4.8-10.8) K/uL RBC (4.7-6.1) M/uL Hgb (14.0-18.0) g/dL Hct (42-52) % MCV (80-100) fL MCH (25-34) pg MCHC (32-36) g/dL RDW Std Deviation (36.4-46.3) fL RDW Coeff of Elizabeth (11.5-14.5) % Plt Count (130-400) K/uL MPV (7.4-10.4) fL Immature Gran % (Auto) % Neut % (Auto) % Lymph % (Auto) % [place] % (Auto) % Eos % (Auto) % Baso % (Auto) % Immature Gran # (Auto) (0.00-0.02) K/uL Neut # (Auto) (1.4-6.5) K/uL Lymph # (Auto) (1.2-3.4) K/uL [place] # (Auto) (0.11-0.59) K/uL Eos # (Auto) (0-0.5) K/uL Baso # (Auto) (0-0.2) K/uL PT (9.0-12.0) Seconds INR (0.9-1.1) APTT 121.6 H* (21.0-31.0) Seconds PTT Ratio 4.5 Sodium (136-145) mmol/L Potassium (3.5-5.1) mmol/L Chloride (98-107) mmol/L Carbon Dioxide (21-32) mmol/L Anion Gap (3-11) BUN (7-18) mg/dl Creatinine (0.6-1.4) mg/dl Est Cr Clr Drug Dosing ml/min Est GFR ( Amer) Est GFR (Non-Af Amer) BUN/Creatinine Ratio (10-20) Glucose (70-99) mg/dl POC Glucose 163 H (70-99) Estimat Average Glucose mg/dl Hemoglobin A1c (4.5-5.6) % Calcium (8.5-10.1) mg/dl Ionized Calcium (1.12-1.32) mmol/L Magnesium (1.8-2.4) mg/dl Total Bilirubin (0.2-1) mg/dl AST (15-37) U/L ALT (12-78) U/L Alkaline Phosphatase (45-117) U/L NT-Pro-B Natriuret Pep Total Protein (6.4-8.2) gm/dl Albumin (3.4-5.0) gm/dl Globulin (2.5-4.0) gm/dl Albumin/Globulin Ratio (0.9-2) 25-OH Vitamin D Total 24.3 L (30-100) ng/ml TSH Nasal Screen MRSA (PCR) (Negative) Blood Type Antibody Screen Crossmatch 01/12/19 01/12/19 01/12/19 Range/Units 01:29 01:29 01:29 WBC 7.62 (4.8-10.8) K/uL RBC 3.26 L (4.7-6.1) M/uL Hgb 9.3 L (14.0-18.0) g/dL Hct 30.1 L (42-52) % MCV 92.3 (80-100) fL MCH 28.5 (25-34) pg MCHC 30.9 L (32-36) g/dL RDW Std Deviation 60.8 H (36.4-46.3) fL RDW Coeff of Elizabeth 18.0 H (11.5-14.5) % Plt Count 107 L (130-400) K/uL MPV 10.3 (7.4-10.4) fL Immature Gran % (Auto) % Neut % (Auto) % Lymph % (Auto) % [place] % (Auto) % Eos % (Auto) % Baso % (Auto) % Immature Gran # (Auto) (0.00-0.02) K/uL Neut # (Auto) (1.4-6.5) K/uL Lymph # (Auto) (1.2-3.4) K/uL [place] # (Auto) (0.11-0.59) K/uL Eos # (Auto) (0-0.5) K/uL Baso # (Auto) (0-0.2) K/uL PT (9.0-12.0) Seconds INR (0.9-1.1) APTT (21.0-31.0) Seconds PTT Ratio Sodium 142 (136-145) mmol/L Potassium 4.0 (3.5-5.1) mmol/L Chloride 110 H (98-107) mmol/L Carbon Dioxide 29 (21-32) mmol/L Anion Gap 3.0 (3-11) BUN 21 H (7-18) mg/dl Creatinine 1.96 H (0.6-1.4) mg/dl Est Cr Clr Drug Dosing 43.2 ml/min Est GFR ( Amer) 36.9 Est GFR (Non-Af Amer) 31.8 BUN/Creatinine Ratio 10.9 (10-20) Glucose 159 H (70-99) mg/dl POC Glucose (70-99) Estimat Average Glucose 137 mg/dl Hemoglobin A1c 6.4 H (4.5-5.6) % Calcium 7.7 L (8.5-10.1) mg/dl Ionized Calcium (1.12-1.32) mmol/L Magnesium (1.8-2.4) mg/dl Total Bilirubin 0.7 (0.2-1) mg/dl AST 18 (15-37) U/L ALT 15 (12-78) U/L Alkaline Phosphatase 83 (45-117) U/L NT-Pro-B Natriuret Pep Total Protein 6.2 L (6.4-8.2) gm/dl Albumin 2.4 L (3.4-5.0) gm/dl Globulin 3.8 (2.5-4.0) gm/dl Albumin/Globulin Ratio 0.6 L (0.9-2) 25-OH Vitamin D Total (30-100) ng/ml TSH Nasal Screen MRSA (PCR) (Negative) Blood Type Antibody Screen Crossmatch 01/12/19 01/11/19 01/11/19 Range/Units 00:06 20:19 19:07 WBC (4.8-10.8) K/uL RBC (4.7-6.1) M/uL Hgb (14.0-18.0) g/dL Hct (42-52) % MCV (80-100) fL MCH (25-34) pg MCHC (32-36) g/dL RDW Std Deviation (36.4-46.3) fL RDW Coeff of Elizabeth (11.5-14.5) % Plt Count (130-400) K/uL MPV (7.4-10.4) fL Immature Gran % (Auto) % Neut % (Auto) % Lymph % (Auto) % [place] % (Auto) % Eos % (Auto) % Baso % (Auto) % Immature Gran # (Auto) (0.00-0.02) K/uL Neut # (Auto) (1.4-6.5) K/uL Lymph # (Auto) (1.2-3.4) K/uL [place] # (Auto) (0.11-0.59) K/uL Eos # (Auto) (0-0.5) K/uL Baso # (Auto) (0-0.2) K/uL PT (9.0-12.0) Seconds INR (0.9-1.1) APTT (21.0-31.0) Seconds PTT Ratio Sodium (136-145) mmol/L Potassium (3.5-5.1) mmol/L Chloride (98-107) mmol/L Carbon Dioxide (21-32) mmol/L Anion Gap (3-11) BUN (7-18) mg/dl Creatinine (0.6-1.4) mg/dl Est Cr Clr Drug Dosing ml/min Est GFR ( Amer) Est GFR (Non-Af Amer) BUN/Creatinine Ratio (10-20) Glucose (70-99) mg/dl POC Glucose 166 H 151 H (70-99) Estimat Average Glucose mg/dl Hemoglobin A1c (4.5-5.6) % Calcium (8.5-10.1) mg/dl Ionized Calcium (1.12-1.32) mmol/L Magnesium (1.8-2.4) mg/dl Total Bilirubin (0.2-1) mg/dl AST (15-37) U/L ALT (12-78) U/L Alkaline Phosphatase (45-117) U/L NT-Pro-B Natriuret Pep Total Protein (6.4-8.2) gm/dl Albumin (3.4-5.0) gm/dl Globulin (2.5-4.0) gm/dl Albumin/Globulin Ratio (0.9-2) 25-OH Vitamin D Total (30-100) ng/ml TSH Nasal Screen MRSA (PCR) (Negative) Blood Type O Positive Antibody Screen NEGATIVE Crossmatch See Detail 01/11/19 01/11/19 01/11/19 Range/Units 19:07 18:45 18:36 WBC (4.8-10.8) K/uL RBC (4.7-6.1) M/uL Hgb (14.0-18.0) g/dL Hct (42-52) % MCV (80-100) fL MCH (25-34) pg MCHC (32-36) g/dL RDW Std Deviation (36.4-46.3) fL RDW Coeff of Elizabeth (11.5-14.5) % Plt Count (130-400) K/uL MPV (7.4-10.4) fL Immature Gran % (Auto) % Neut % (Auto) % Lymph % (Auto) % [place] % (Auto) % Eos % (Auto) % Baso % (Auto) % Immature Gran # (Auto) (0.00-0.02) K/uL Neut # (Auto) (1.4-6.5) K/uL Lymph # (Auto) (1.2-3.4) K/uL [place] # (Auto) (0.11-0.59) K/uL Eos # (Auto) (0-0.5) K/uL Baso # (Auto) (0-0.2) K/uL PT 15.3 H (9.0-12.0) Seconds INR 1.5 H (0.9-1.1) APTT (21.0-31.0) Seconds PTT Ratio Sodium (136-145) mmol/L Potassium (3.5-5.1) mmol/L Chloride (98-107) mmol/L Carbon Dioxide (21-32) mmol/L Anion Gap (3-11) BUN (7-18) mg/dl Creatinine (0.6-1.4) mg/dl Est Cr Clr Drug Dosing ml/min Est GFR ( Amer) Est GFR (Non-Af Amer) BUN/Creatinine Ratio (10-20) Glucose (70-99) mg/dl POC Glucose 107 H (70-99) Estimat Average Glucose mg/dl Hemoglobin A1c (4.5-5.6) % Calcium (8.5-10.1) mg/dl Ionized Calcium (1.12-1.32) mmol/L Magnesium (1.8-2.4) mg/dl Total Bilirubin (0.2-1) mg/dl AST (15-37) U/L ALT (12-78) U/L Alkaline Phosphatase (45-117) U/L NT-Pro-B Natriuret Pep Total Protein (6.4-8.2) gm/dl Albumin (3.4-5.0) gm/dl Globulin (2.5-4.0) gm/dl Albumin/Globulin Ratio (0.9-2) 25-OH Vitamin D Total (30-100) ng/ml TSH Nasal Screen MRSA (PCR) Positive A (Negative) Blood Type Antibody Screen Crossmatch 01/11/19 01/11/19 01/11/19 Range/Units 13:25 13:25 13:25 WBC 6.21 (4.8-10.8) K/uL RBC 3.82 L (4.7-6.1) M/uL Hgb 11.1 L (14.0-18.0) g/dL Hct 34.2 L (42-52) % MCV 89.5 (80-100) fL MCH 29.1 (25-34) pg MCHC 32.5 (32-36) g/dL RDW Std Deviation 59.1 H (36.4-46.3) fL RDW Coeff of Elizabeth 18.0 H (11.5-14.5) % Plt Count 133 (130-400) K/uL MPV 10.7 H (7.4-10.4) fL Immature Gran % (Auto) 0.2 % Neut % (Auto) 65.5 % Lymph % (Auto) 22.9 % [place] % (Auto) 7.1 % Eos % (Auto) 3.2 % Baso % (Auto) 1.1 % Immature Gran # (Auto) 0.01 (0.00-0.02) K/uL Neut # (Auto) 4.07 (1.4-6.5) K/uL Lymph # (Auto) 1.42 (1.2-3.4) K/uL [place] # (Auto) 0.44 (0.11-0.59) K/uL Eos # (Auto) 0.20 (0-0.5) K/uL Baso # (Auto) 0.07 (0-0.2) K/uL PT 15.2 H (9.0-12.0) Seconds INR 1.5 H (0.9-1.1) APTT 28.8 (21.0-31.0) Seconds PTT Ratio 1.1 Sodium 143 (136-145) mmol/L Potassium 3.6 (3.5-5.1) mmol/L Chloride 111 H (98-107) mmol/L Carbon Dioxide 27 (21-32) mmol/L Anion Gap 5.0 (3-11) BUN 19 H (7-18) mg/dl Creatinine 1.80 H (0.6-1.4) mg/dl Est Cr Clr Drug Dosing 47.0 ml/min Est GFR ( Amer) 40.9 Est GFR (Non-Af Amer) 35.3 BUN/Creatinine Ratio 10.6 (10-20) Glucose 90 (70-99) mg/dl POC Glucose (70-99) Estimat Average Glucose mg/dl Hemoglobin A1c (4.5-5.6) % Calcium 8.5 (8.5-10.1) mg/dl Ionized Calcium (1.12-1.32) mmol/L Magnesium (1.8-2.4) mg/dl Total Bilirubin (0.2-1) mg/dl AST (15-37) U/L ALT (12-78) U/L Alkaline Phosphatase (45-117) U/L NT-Pro-B Natriuret Pep Total Protein (6.4-8.2) gm/dl Albumin (3.4-5.0) gm/dl Globulin (2.5-4.0) gm/dl Albumin/Globulin Ratio (0.9-2) 25-OH Vitamin D Total (30-100) ng/ml TSH Nasal Screen MRSA (PCR) (Negative) Blood Type Antibody Screen Crossmatch Diagnostic Findings EKG reviewed, from admission: atrial fibrillation with controlled ventricular response chronic LBBB no change from prior EKG chest xray report reviewed, from admission: IMPRESSION: Platelike atelectasis both lung bases. Otherwise negative study. Telemetry reviewed: Atrial fibrillation with controlled ventricular rates Data: August 15, 2018 TTE Interpretation Summary (as per Dr. Wu): The study is technically limited. The LV wall thickness is moderately increased (concentric). The septal motion is abnormal consistent with left bundle branch block. The regional left ventricular wall motion is otherwise normal. The qualitative LV ejection fraction is 50-54% (normal). The aortic valve is inadequately visualized, unable to accurately determine the number of leaflets. There is an aortic valve mechanical prosthesis present. The aortic valve prosthesis systolic gradients are normal for this type prosthesis. Significant aortic valve prosthesis regurgitation is absent. There is moderate mitral annular calcification. The proximal ascending thoracic aorta is moderately enlarged with diamter of 4.8 cm. Compared to the prior study dated 12/14/2017, the proximal ascending aorta diameter is unchanged. The moderate mitral annular calcification was present on the prior study and appears unchanged. The mechanical aortic valve prosthesis is inadequately visualized in terms of assessment for vegetation. No significant perivalvular leak is present. October 25, 2018 TTE Interpretation Summary ([facility], Dr. Bautista): Study of fair technical quality with limitations secondary to body habitus and rate. Normal size LV. Moderate concentric LVH. Septal motion consistent with conduction abnormality. EF 60 to 65%. [place] ([place]) aortic valve mechanical prosthesis. No vegetation visualized with significant limitations present. Normal gradient. Moderate mitral annular calcification. Trace mitral regurgitation. October 30, 2018 [place] Interpretation Summary ([facility], Dr. Ballard): Compared to previous TTE from June 13, 2018, the mechanical AVR lesion has resolved. No va lvular lesions present that would represent endocarditis. Moderate mitral annular calcification with leaflet thickening, unchanged when compared to [place] images of June 13, 2018. Medications Administered Current Inpatient Medications Acetaminophen (Tylenol) 650 mg PO Q6H PRN PRN Reason: MILD Pain (Scale 1,2,3) Stop: 02/10/19 18:42 Aspirin (Ecotrin Ectab) 81 mg PO [facility] Stop: 02/11/19 08:59 Last Admin: 01/12/19 08:02 Dose: 81 mg Documented by: Atorvastatin Calcium (Lipitor) 40 mg PO [facility] Stop: 02/11/19 08:59 Last Admin: 01/12/19 07:59 Dose: 40 mg Documented by: Bisacodyl (Dulcolax) 10 mg [place] DAILY PRN PRN Reason: Constipation Stop: 02/10/19 18:42 Dextrose (Dextrose 50%) 25 - 50 ml IV UD PRN; Protocol PRN Reason: Hypoglycemia Protocol Stop: 02/10/19 18:42 Ferrous Sulfate (Feosol) 325 mg PO [facility] Stop: 02/11/19 08:59 Last Admin: 01/12/19 08:00 Dose: 325 mg Documented by: Folic Acid (Folvite) 1 mg PO [facility] Stop: 02/11/19 08:59 Last Admin: 01/12/19 07:59 Dose: 1 mg Documented by: Glucagon (Glucagen) 1 mg SQ UD PRN; Protocol PRN Reason: Hypoglycemia Protocol Stop: 02/10/19 18:42 Glucose (Glucose 40%) 15 - 30 gm PO UD PRN; Protocol PRN Reason: Hypoglycemia Protocol Stop: 02/10/19 18:42 Glucose (Dex4 Glucose) 4 - 8 tabs PO UD PRN; Protocol PRN Reason: Hypoglycemia Protocol Stop: 02/10/19 18:42 Cefazolin Sodium (Ancef 3000mg) 72.5 mls @ 3.75 mls/min IV PREOP JOYCE; Protocol Stop: 01/12/19 18:00 Sodium Chloride (Nss) 250 mls @ 15 mls/hr IV .[id number] PRN PRN Reason: For Transfusion Stop: 02/10/19 19:58 Cefazolin Sodium (Ancef 3000mg) 65 mls @ 130 mls/hr IV PREOP JOYCE; Protocol Stop: 01/13/19 05:59 Insulin Aspart (Novolog Flexpen) 0 units SC ACHS JOYCE Stop: 02/10/19 19:29 Last Admin: 01/12/19 07:54 Dose: 1 units Documented by: Insulin Glargine (Lantus Solostar Pen) 0 units SC BID JOYCE Stop: 02/10/19 19:29 Last Admin: 01/12/19 07:53 Dose: 10 units Documented by: Isosorbide Mononitrate (Imdur Extended Rel) 60 mg PO QAM ECU [facility] Stop: 02/11/19 08:59 Last Admin: 01/12/19 08:02 Dose: 60 mg Documented by: Levothyroxine Sodium (Synthroid) 75 mcg PO DAILYBB [facility] Stop: 02/11/19 06:29 Last Admin: 01/12/19 06:20 Dose: 75 mcg Documented by: Magnesium Hydroxide (Milk Of Magnesia) 30 ml PO DAILY PRN PRN Reason: Constipation Stop: 02/10/19 18:42 Metoprolol Succinate (Toprol Xl) 25 mg PO HS [facility] Stop: 02/10/19 20:59 Last Admin: 01/11/19 21:11 Dose: 25 mg Documented by: Metoprolol Succinate (Toprol Xl) 50 mg PO QAM JOYCE Stop: 02/11/19 08:59 Last Admin: 01/12/19 08:18 Dose: Not Given Documented by: Miscellaneous (Carbohydrates For Hypoglycemia) 15 - 30 gm PO UD PRN PRN Reason: Hypoglycemia Treatment Stop: 02/10/19 18:42 Morphine Sulfate (Morphine Sulfate) 2 mg IV Q2H PRN PRN Reason: Severe Pain Stop: 01/25/19 18:42 Naloxone HCl (Narcan) 0.1 mg IV UD PRN PRN Reason: Opiate Overdose Stop: 02/10/19 18:42 Nitroglycerin (Nitrostat) 0.4 mg SL UD PRN PRN Reason: Chest Pain Stop: 02/10/19 18:42 Ondansetron HCl (Zofran) 4 mg IV Q6H PRN PRN Reason: Nausea And Vomiting Stop: 02/10/19 16:54 Last Admin: 01/11/19 17:27 Dose: 4 mg Documented by: Oxycodone HCl (Roxicodone Immediate Rel) 5 mg PO Q4H PRN PRN Reason: MODERATE Pain (Scale 4,5,6) Stop: 01/25/19 18:42 Last Admin: 01/12/19 07:59 Dose: 5 mg Documented by: Senna/Docusate Sodium (Senokot S) 2 tab PO [facility] Stop: 02/10/19 20:59 Last Admin: 01/11/19 21:11 Dose: 2 tab Documented by: Spironolactone (Aldactone) 12.5 mg PO [facility] Stop: 02/11/19 08:59 Last Admin: 01/12/19 08:01 Dose: 12.5 mg Documented by: Terazosin HCl (Hytrin) 2 mg PO [facility] Stop: 02/10/19 20:59 Last Admin: 01/11/19 21:11 Dose: 2 mg Documented by: Torsemide (Demadex) 60 mg PO SuTuThSa@0900 [facility] Stop: 02/12/19 08:59 Torsemide (Demadex) 40 mg PO MoWeFr@0900 [facility] Stop: 02/11/19 08:59 Last Admin: 01/12/19 08:00 Dose: 40 mg Documented by:
[2019-01-12 08:17] LABS: BUN Creatinine Ratio 11.4 (10-20); Creatinine Clr Calc Pharmacy 40.3 ml/min; Est GFR (African American) 33.9; Est GFR (Non-African American) 29.3; Magnesium 2.1 mg/dl (1.8-2.4); Potassium 4.3 mmol/L (3.5-5.1)
[2019-01-12] MEDS: METOPROLOL SUCC 50MG EXT REL TAB PO SCH (08:18)
[2019-01-12 08:27] LABS: Thyroid Stimulating Hormone 2.78 uIu/ml (0.300-4.500)
[2019-01-12] MEDS ORDERED: TORSEMIDE 20 MG TAB PO SCH (09:00)
[2019-01-12] MEDS ORDERED: CALCIUM GLUCONATE 10% 1,000 MG in SODIUM CHLORIDE 0.9% 50 ML IV STA (10:20)
--- NOTE | 2019-01-12 10:54 | Hospitalist Progress Note ---
Date of Service January 12, 2019 Assessment & Plan (1) Fall: (2) Intertrochanteric fracture of right hip: -This is a 78-year-old male who has significant past medical history of CAD, history of AVR, paroxysmal atrial fibrillation, long-term anticoagulation on warfarin, T2DM, HTN, HLD, hypothyroidism, PVD, anemia of chronic disease, morbid obesity, history of prosthetic valve endocarditis, ascending aortic aneurysm who presents to [facility] ED due to fall prior to arrival. -In ED patient found to have acute mildly displaced and angulated comminuted intertrochanteric fracture of the right femur -follow patient with orthopedic plans for surgical repair -pain control medications, bowel regimen while on narcotic pain medications (3) Laceration of finger of right hand: -treated in the ED on initial presentation (4) Chronic atrial fibrillation: presence of mechanical aortic valve -patient's INR is 1.5 and off coumadin -discussed with orthopedic physician administrative assistant receptionist that if INR is not low enough for right hip surgery then heparin drip should be resumed -otherwise hospitalist medicine would like to avoid giving vitamin K -will likely need resumption of systemic anticoagulation 24 hours after surgery if bleeding risks are acceptable to orthopedics because of the mechanical aortic valve (5) S/P aortic valve replacement: -Severe aortic 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 with an ascending aortic aneurysm status post May 2007 aortic valve replacement and ascending aorta repair with a #[address] 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 20-30% mid LAD stenosis, 20% diagonal stenosis, 30% LCX stenosis, and a 20-40% RCA stenosis with EF of 45% by LV gram -June 13, 2015 diagnostic cardiac catheterization at [facility] revealed mild nonobstructive coronary artery disease with normally functioning mechanical aortic valve. Specific angiography revealed an ectatic LM, 40% mid LAD lesion, 40% mid LCX stenosis, and a dominant RCA with 40% mid vessel stenosis. 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 Completed 6 weeks of IV Rocephin as of 07/21/2018. -Last echocardiogram 10/30/18 EF 60-65%, mod concentric LVH, mechanical valve noted, no vegetation (9) Chronic diastolic heart failure: -BNP over 3000 but this is much lower than previous hospital lab record -does not appear to be clinically fluid overloaded -on torsemide, aldactone, Beta shiv, imdur (10) HTN (hypertension): -continue metoprolol, torsemide, imdur, aldactone -continue Terazosin for BPH (11) CKD (chronic kidney disease), stage III: Acute Kidney Injury on Chronic Kidney Disease stage III -baseline Creatinine between 1.9 to 2 -creatinine on 01/12/19 is mildly elevated to 2.1. Give small IV bolus but maintain diuretics for now (12) T2DM (type 2 diabetes mellitus): HbA1c 6.9 01/02/19 -Continue Lantus/NovoLog per protocol (13) History of CVA (cerebrovascular accident): -history of stroke in the past with mild residual Right sided weakness -continue Statin -holding aspirin and warfarin until right hip surgery is performed (14) Anemia: -follow hemoglobin (15) Hypothyroidism: -TSH is 2.78 -continue levothyroxine (16) Hyperlipidemia: continue statin (17) DVT prophylaxis: -DVT prophylaxis depends on orthopedic surgical plans today Subjective Patient seen at bedside. Orthopedic physician administrative assistant receptionist also at bedside. Patient not in distress. no shortness of breath. no chest pain. no palpitations. We discussed his heart valve. Patient has some right sided hip pain. but generally comfortable in appearance. no reports of dizziness or lightheadedness. he is not nauseous. Physical Exam Constitutional: + obese and comfortable Eyes: PERRL, conjunctivae normal, anicteric sclerae ENMT: external ear and nose normal, oropharynx normal Neck: normal visual inspection Respiratory: normal respiratory effort, lungs clear to auscultation Cardiovascular: Rate/Rhythm: regular rate Heart Sounds: + murmur Gastrointestinal (Abdomen): normal bowel sounds, soft, nontender, no hepatosplenomegaly Musculoskeletal: Head/Neck/Chest: normocephalic and head atraumatic right hip pain Neurologic: PERRL, EOMI, accommodation nl, no face palsy, no dysarthria Psychiatric: Orientation: alert and cooperative Results & Data Vital Signs (Past 12 Hours) Vital Signs Temp Pulse Resp BP Pulse Ox Pulse Ox 01/12/19 07:31 36.5 C 95 H 22 97/67 L 95 01/12/19 04:00 36.5 C 78 17 100/63 96 94 01/12/19 00:11 93 01/12/19 00:00 36.6 C 82 22 105/64 94 (1) Fall Encounter type: initial encounter Qualified Code(s): W19.XXXA - Unspecified fall, initial encounter
[2019-01-12] MEDS ORDERED: SODIUM CHLORIDE 0.9% 1000ML 250 ML IV ONE (10:55)
[2019-01-12] MEDS: MoRPHine SULFATE 2 MG/ML CARP IV PRN (13:21)
[2019-01-12] MEDS: ONDANSETRON INJ 2 MG/ML 2 ML VIAL IV PRN (13:21)
[2019-01-12] MEDS ORDERED: PROPOFOL IV EMULSION 10 MG/ML 20 ML VIAL IV ONE (15:18)
[2019-01-12] MEDS ORDERED: ONDANSETRON INJ 2 MG/ML 2 ML VIAL ONE (15:18)
[2019-01-12] MEDS ORDERED: LIDOCAINE HCL 2% 2 ML VIAL/AMP(20MG/ML) INFIL ONE (15:18)
[2019-01-12] MEDS ORDERED: fentaNYL citrate 100 MCG/2 ML VIAL ONE (15:18)
[2019-01-12] MEDS ORDERED: MIDAZOLAM HCL 1 MG/ML 2ML VIAL ONE (15:18)
[2019-01-12] MEDS ORDERED: BUPIVACAINE/EPINEPHRINE 0.5% MPF 1:200,000 30 ML VIAL ONE (15:35)
--- NOTE | 2019-01-12 15:41 | History & Physical Bridge Note ---
Date of Service January 12, 2019 History & Physical Bridge Note I have examined the patient, reviewed the History & Physical and in the interval since the performance of the History & Physical I have noted the following changes of clinical significance: no changes noted
[2019-01-12] MEDS ORDERED: SUCCINYLCHOLINE 100MG/5ML SYR ONE (16:22)
[2019-01-12] MEDS ORDERED: ETOMIDATE 2 MG/ML 20 ML VIAL IV ONE (16:22)
[2019-01-12] MEDS ORDERED: PHENYLEPHRINE HCL 10 MG/ML VIAL ONE (16:35)
[2019-01-12] MEDS ORDERED: VANCOMYCIN CONSULT ACTIVE PRN ×2 (17:19→17:50)
[2019-01-12] MEDS ORDERED: PROMETHAZINE HCL 12.5 MG in SODIUM CHLORIDE 0.9% 50 ML IV PRN (17:43)
[2019-01-12] MEDS ORDERED: FLUMAZENIL 0.1 MG/1 ML 10 ML VIAL IV PRN (17:43)
[2019-01-12] MEDS ORDERED: ONDANSETRON INJ 2 MG/ML 2 ML VIAL IV PRN ×2 (17:43→17:50)
[2019-01-12] MEDS ORDERED: LABETALOL HCL IV 5 MG/ML 20ML IV PRN (17:43)
[2019-01-12] MEDS ORDERED: ATROPINE SULFATE 0.1 MG/ML 10ML SYR IV PRN (17:43)
[2019-01-12] MEDS ORDERED: ePHEDrine sulfate 50 MG/ML AMP IV PRN (17:43)
[2019-01-12] MEDS ORDERED: NALOXONE HCL 0.4 MG/1 ML VIAL/CARP IV PRN ×2 (17:43)
[2019-01-12] MEDS ORDERED: fentaNYL citrate 100 MCG/2 ML VIAL IV PRN (17:43)
--- NOTE | 2019-01-12 17:43 | Operative Report ---
Post Operative Report Pre & Post Diagnosis Operation Date: 01/12/19 08:55 Pre-Op Diagnosis: Right intertrochenteric hip fracture Post-Op Diagnosis: Right intertrochenteric hip fracture I identified the patient and participated in the time-out.: Yes Procedure Operation Date: 01/12/19 08:55 Actual Procedures p Cephalomedullary nailing of right hip intertrochenteric fracture(Right) - Nasir Cabrera MD Surgeon Nasir Cabrera MD Remote Medical Coder None Estimated Blood Loss 100 Findings Consistent with Post-Op Diagnosis Specimens None Drains None Anesthesia Type General Complications none Disposition Accompanied Patient To Recovery: No Disposition: Recovery Room Indications The patient is a 78-year-old male sustained a fall onto the right hip. X-rays demonstrated a displaced right intertrochanteric fracture. Given the nature of the injury we recommended open reduction internal fixation of the right intertrochanteric hip fracture. He has been cleared medically and by cardiology. He wishes to proceed with surgery. Description of Procedure Risks benefits and alternatives of surgery including but not limited to infection, DVT, PE, pain, stiffness, need for surgery, damage to blood vessels, damage to nerves or risks of anesthesia, were discussed with the patient and her family and they wished to proceed. Patient was identified in the laterality was confirmed and marked. They received a preoperative antibiotic. The patient was transferred to the fracture table. The operative limb was vijaya neel in traction and the well leg was placed in a well leg feng that was well- padded. The arms were well-padded and placed out of the way of the surgical field. I confirmed reduction of the fracture with fluoroscopy with the patient's fracture table and made adjustments to fracture table alignment is necessary to reduce the fracture appropriately. The hip was then prepped and draped in the usual standard manner with ChloraPrep. I made a longitudinal incision proximal to the greater trochanter. I sharply incised through the skin and then used Bovie electrocautery to achieve hemostasis. I incised through the fascia and then bluntly dissected down to the tip of the greater trochanter. Under fluoroscopic guidance I placed a guide pin into the greater trochanter and ensured proper placement on both AP and lateral fluoroscopy views. Once I was satisfied with the position of the guide. I advanced this distally. I then overreamed with the 17 mm proximal reamer. I then placed a Synthes trochanteric fixation nail into position. The size of the nail was and intermediate nail. Then I placed the guide arm onto the nail insertion device made a stab incision more distally and then placed the drill guide for the helical blade. I adjusted the position of the nail as necessary to ensure that the guidepin was center center in the femoral head. Once I was satisfied with the position of the pin advanced it to the appropriate position of the femoral head. I then measured and then reamed the lateral cortex and then reamed down into the femoral head. I then inserted a size [address] I then locked the set screw proximally and then compressed the fracture. Then through a stab incision I placed a interlocking screw through the drill guide. I confirmed hardware placement and maintenance of reduction on AP and lateral fluoroscopy views. Wounds were then thoroughly irrigated. The fascia was closed with interrupted #1 Vicryl suture. Subcutaneous tissues closed with interrupted 2-0 Vicryl suture and the skin with anita. Sterile dressings applied. All needle and sponge counts were correct at the end of the procedure the patient was transferred to the PACU in stable condition without apparent complication. I attest to the content of the Intraoperative Record and any orders documented therein. Any exceptions are noted below.
[2019-01-12] MEDS ORDERED: MAGNESIUM HYDROXIDE SUSP 30 ML UDC PO PRN (17:50)
[2019-01-12] MEDS ORDERED: bisacodyL 10 MG SUPP PR PRN (17:50)
[2019-01-12] MEDS ORDERED: METOCLOPRAMIDE HCL INJ 5 MG/ML 2 ML VIAL IV PRN (17:50)
[2019-01-12] MEDS ORDERED: VANCOMYCIN HCL 2,000 MG in SODIUM CHLORIDE 0.9% 500 ML IV SCH (18:00)
[2019-01-12] MEDS ORDERED: VANCOMYCIN HCL 1,000 MG in SODIUM CHLORIDE 0.9% 250 ML IV ONE (18:00)
--- NOTE | 2019-01-12 18:10 | Anesthesiology Progress Note ---
Date of Service January 12, 2019 Anesthesia Post Procedure Vital Signs Vital Signs: Temp Pulse Pulse Pulse Resp BP BP 01/12/19 18:00 110 H 31 H 01/12/19 17:50 110 H 21 01/12/19 17:40 36.4 C L 118 H 25 H 01/12/19 15:30 37.1 C 95 H 20 01/12/19 11:07 36.4 C L 80 20 97/60 L 01/12/19 07:31 36.5 C 95 H 22 97/67 L 01/12/19 06:19 99 H 01/12/19 04:00 36.5 C 78 17 100/63 01/12/19 00:11 01/12/19 00:00 36.6 C 82 22 105/64 01/11/19 20:00 01/11/19 18:41 36.6 C 94 H 20 158/93 H BP Pulse Ox Pulse Ox 01/12/19 18:00 92/60 L 91 01/12/19 17:50 86/69 L 99 01/12/19 17:40 109/79 99 01/12/19 15:30 92/76 L 96 01/12/19 11:07 95 01/12/19 07:31 95 01/12/19 06:19 01/12/19 04:00 96 94 01/12/19 00:11 93 01/12/19 00:00 94 01/11/19 20:00 94 01/11/19 18:41 92 Pain Intensity Right Hip: Pain Intensity: 0 Transfer of Care Handoff Completed per policy Notes Mental Status: alert / awake / arousable Patient Amnestic to Procedure: Yes Nausea / Vomiting: adequately controlled Pain: adequately controlled Airway Patency, RR, SpO2: stable & adequate BP & HR: stable & adequate Hydration State: stable & adequate Anesthetic Complications: no major complications apparent
--- NOTE | 2019-01-12 18:20 | Fluoroscopy Report ---
FL hip RT 2-3V CLINICAL HISTORY: RT TROCH NAIL COMPARISON STUDY: 01/11/2019 FLUOROSCOPY TIME: 62 seconds. NUMBER OF FLUOROSCOPIC IMAGES: 6 FINDINGS: 6 intraoperative fluoroscopic spot films reveal internal fixation of an intertrochanteric r ight hip fracture with a trochanteric nail and interlocking medullary susan. There is persistent distra ction of the lesser trochanteric fragment IMPRESSION: Internally fixated intertrochanteric right hip fracture Electronically signed by: Jaylon Alvarez M.D. 01/12/2019 6:18 PM
[2019-01-12] MEDS: LACTATED RINGER'S 1,000 ML IV SCH (19:17)
[2019-01-12] MEDS: TERAZOSIN HCL 1 MG CAP PO SCH (20:38)
[2019-01-12] MEDS: DOCUSATE SODIUM/SENNA 50/8.6MG TAB PO SCH (20:39)
[2019-01-12] MEDS: METOPROLOL SUCC 25MG EXT REL TAB PO SCH (20:39)
[2019-01-12] MEDS ORDERED: DOCUSATE SODIUM 100 MG CAP PO SCH (21:00)
[2019-01-12] MEDS ORDERED: WARFARIN SOD 2.5 MG TAB PO SCH (21:00)
[2019-01-12] MEDS: METOPROLOL TARTRATE 1 MG/ML VIAL IV PRN (23:39)
[2019-01-13] MEDS: METOPROLOL TARTRATE 1 MG/ML VIAL IV PRN (03:46)
[2019-01-13] MEDS: LEVOTHYROXINE SODIUM 75 MCG TABLET PO SCH (06:16)
[2019-01-13 07:27] LABS: Hematocrit (blood only) 25.3 % (42-52); Hemoglobin 7.8 g/dL (14.0-18.0); Mean Corpuscular Hgb Conc 30.8 g/dL (32-36); Mean Corpuscular Volume 94.1 fL (80-100); RDW Coefficient of Variation 18.1 % (11.5-14.5); RDW Standard Deviation 61.8 fL (36.4-46.3); Red Blood Count 2.69 M/uL (4.7-6.1); White Blood Count 7.14 K/uL (4.8-10.8)
[2019-01-13 07:38] LABS: INR 1.7 (0.9-1.1); Prothrombin Time 16.7 Seconds (9.0-12.0)
[2019-01-13 07:41] LABS: Mean Platelet Volume 10.4 fL (7.4-10.4); Platelet Count 94 K/uL (130-400)
[2019-01-13 07:47] LABS: Basophils # (auto) 0.03 K/uL (0-0.2); Basophils % (auto) 0.4 %; Eosinophils # (auto) 0.09 K/uL (0-0.5); Eosinophils % (auto) 1.3 %; Immature Granulocytes # (auto) 0.02 K/uL (0.00-0.02); Immature Granulocytes % (auto) 0.3 %; Lymphocytes # (auto) 1.07 K/uL (1.2-3.4); Monocytes # (auto) 0.64 K/uL (0.11-0.59); Neutrophils # (auto) 5.29 K/uL (1.4-6.5); Polychromasia 1+
[2019-01-13] MEDS ORDERED: SODIUM CHLORIDE 0.9% 250 ML IV PRN (08:05)
[2019-01-13 08:06] LABS: Albumin Level 2.2 gm/dl (3.4-5.0); BUN Creatinine Ratio 12.8 (10-20); Calcium 7.5 mg/dl (8.5-10.1); Est GFR (African American) 26.7; Potassium 4.4 mmol/L (3.5-5.1)
[2019-01-13 08:09] LABS: Albumin Globulin Ratio 0.7 (0.9-2); Bilirubin,Total 0.4 mg/dl (0.2-1); Globulin 3.2 gm/dl (2.5-4.0); Total Protein 5.4 gm/dl (6.4-8.2)
[2019-01-13] MEDS ORDERED: ACETAMINOPHEN 325 MG TAB PO PRN (08:35)
[2019-01-13] MEDS: INSULIN ASPART 100 UNITS/ML 3 ML PEN SC SCH ×4 (08:50→21:04)
[2019-01-13] MEDS: INSULIN GLARGINE SOLOSTAR 100 UNITS/ML 3 ML PEN SC SCH ×2 (08:51→21:05)
[2019-01-13] MEDS: ISOSORBIDE MONO EXTENDED REL 60 MG TABCR PO SCH (08:52)
[2019-01-13] MEDS: ATORVASTATIN 40 MG TAB PO SCH (08:52)
[2019-01-13] MEDS: SPIRONOLACTONE 25 MG TAB PO SCH (08:52)
[2019-01-13] MEDS: FERROUS SULFATE 325 MG TAB PO SCH (08:52)
[2019-01-13] MEDS: METOPROLOL SUCC 50MG EXT REL TAB PO SCH (08:52)
[2019-01-13] MEDS: ASPIRIN 81 MG ECTAB PO SCH (08:53)
[2019-01-13] MEDS: FOLIC ACID 1 MG TAB PO SCH (08:53)
[2019-01-13] MEDS: MULTIVITAMIN TAB PO SCH (08:53)
[2019-01-13] MEDS ORDERED: TORSEMIDE 20 MG TAB PO SCH (09:00)
[2019-01-13] MEDS: LACTATED RINGER'S 1,000 ML IV SCH (09:05)
--- NOTE | 2019-01-13 09:31 | Hospitalist Progress Note ---
Date of Service January 13, 2019 Assessment & Plan (1) Fall: (2) Laceration of finger of right hand: -treated in the ED on initial presentation (3) Intertrochanteric fracture of right hip: s/p right hip fracture repair on this admission -This is a 78-year-old male who has significant past medical history of CAD, history of AVR, paroxysmal atrial fibrillation, long-term anticoagulation on warfarin, T2DM, HTN, HLD, hypothyroidism, PVD, anemia of chronic disease, morbid obesity, history of prosthetic valve endocarditis, ascending aortic aneurysm who presents to [facility] ED due to fall prior to arrival. -In ED patient found to have acute mildly displaced and angulated comminuted intertrochanteric fracture of the right femur -pain control medications, bowel regimen while on narcotic pain medications -s/p Cephalomedullary nailing of right hip intertrochanteric fracture on 01/12/19 (4) Chronic atrial fibrillation: presence of mechanical aortic valve -continue home dose metoprolol -coumadin resumed -will likely need resumption of systemic anticoagulation 24 hours after surgery (completed on 01/12/19 evening) because of the mechanical aortic valve -once a PRBC given on 01/13/19 and lab checks performed, will decide on resuming systemic anticoagulation bridge with coumadin versus low dose subcutaneous heparin with coumadin (5) Anemia: Chronic anemia with Acute blood loss anemia -s/p Cephalomedullary nailing of right hip intertrochanteric fracture on 01/12/19 -01/13/19: Patient's Hemoglobin noted to be 7.8. Discussed with patient that given the context of him have lower blood counts after the surgery and likely needing systemic anticoagulation with the atrial fibrillation and aortic mechanical valve, the patient agreed to get blood transfusion -1 unit PRBC ordered on 01/13/19 (6) S/P aortic valve replacement: history of aortic valve replacement and presence of mechanical aortic valve -Severe aortic 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 with an ascending aortic aneurysm status post May 2007 aortic valve replacement and ascending aorta repair with a #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 20-30% mid LAD stenosis, 20% diagonal stenosis, 30% LCX stenosis, and a 20-40% RCA stenosis with EF of 45% by LV gram -June 13, 2015 diagnostic cardiac catheterization at [facility] revealed mild nonobstructive coronary artery disease with normally functioning mechanical aortic valve. Specific angiography revealed an ectatic LM, 40% mid LAD lesion, 40% mid LCX stenosis, and a dominant RCA with 40% mid vessel stenosis. 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 Completed 6 weeks of IV Rocephin as of 07/21/2018. -Last echocardiogram 10/30/18 EF 60-65%, mod concentric LVH, mechanical valve noted, no vegetation (10) Chronic diastolic heart failure: -BNP over 3000 but this is much lower than previous hospital lab record -does not appear to be clinically fluid overloaded -on torsemide, aldactone, Beta shiv, imdur (11) HTN (hypertension): -continue metoprolol, torsemide, imdur, aldactone -continue Terazosin for BPH (12) CKD (chronic kidney disease), stage III: Acute Kidney Injury on Chronic Kidney Disease stage III -baseline Creatinine between 1.9 to 2 -creatinine on 01/12/19 is mildly elevated to 2.1 -creatinine on 01/13/19 is 2.56, patient already received IV fluids and because of cardiac health issues and with plans for PRBC transfusion, continuing the home dose diuretics -shrestha to be removed on 01/13/19 (13) T2DM (type 2 diabetes mellitus): Type 2 diabetes mellitus with [facility] current use of insulin HbA1c 6.9 01/02/19 -Continue Lantus/NovoLog per protocol (14) History of CVA (cerebrovascular accident): -history of stroke in the past with mild residual Right sided weakness -continue Statin -resume aspirin and coumadin (15) Hypothyroidism: -TSH is 2.78 -continue levothyroxine (16) Hyperlipidemia: continue statin (17) DVT prophylaxis: -DVT SCDs, resumed coumadin Subjective Patient seen and examined at bedside. He is s/p Cephalomedullary nailing of right hip intertrochanteric fracture on 01/12/19. Patient's Hemoglobin noted to be 7.8. Discussed with patient that given the context of him have lower blood counts after the surgery and likely needing systemic anticoagulation with the atrial fibrillation and aortic mechanical valve, the patient agreed to get blood transfusion. Patient does not report of feeling acute pain. He denies any symptoms of nausea or lightheadedness. He did not report feeling short of breath Physical Exam Constitutional: + obese and comfortable Eyes: PERRL, conjunctivae normal, anicteric sclerae ENMT: external ear and nose normal, oropharynx normal Neck: normal visual inspection Respiratory: normal respiratory effort on oxymask Cardiovascular: Rate/Rhythm: regular rate Heart Sounds: + murmur Gastrointestinal (Abdomen): normal bowel sounds, soft, nontender, no hepato splenomegaly Musculoskeletal: Head/Neck/Chest: normocephalic and head atraumatic ice over right thigh and dressing over surgical site Neurologic: PERRL, EOMI, accommodation nl, no face palsy, no dysarthria Psychiatric: Orientation: alert and cooperative Genitourinary: shrestha Results & Data Vital Signs (Past 12 Hours) Vital Signs Temp Pulse Resp BP Pulse Ox Pulse Ox 01/13/19 07:04 37.4 C 94 H 20 114/69 97 01/13/19 04:06 97 01/13/19 03:35 37.6 C H 113 H 20 100/67 97 01/13/19 00:00 96 01/12/19 23:35 37.2 C 117 H 19 119/69 98 (1) Fall Encounter type: initial encounter Qualified Code(s): W19.XXXA - Unspecified fall, initial encounter
[2019-01-13] MEDS ORDERED: ASPIRIN 81 MG CHEW PO SCH (09:45)
--- NOTE | 2019-01-13 10:54 | Cardiology Progress Note ---
Date of Service January 13, 2019 Assessment & Plan (1) Intertrochanteric fracture of right hip: s/p nailing of intertrochanteric right hip fracture, 01/12/2019 (2) Anemia: Acute postoperative, blood loss anemia. Agree with transfusion. (3) Chronic atrial fibrillation: Rate controlled Continue oral metoprolol. Coumadin to be reinitiated this afternoon. Refer to discussion regarding heparin below. (4) S/P aortic valve replacement: Patient has history of aortic valve regurgitation, ascending aortic aneurysm prompting surgical repair in [address] [employer] composite graft with mechanical AV prosthesis and coronary artery reimplantation. Was treated medically for prosthetic valve endocarditis 05/2018. Given this particular prosthesis, reasonable anticoagulation goal is 2.5, range 2-3. Although hemoglobin is 7.8 noted, anticoagulation important in terms of preventing prosthetic valve process, and therefore we will reinitiate low-dose heparin without bolus today at 1600. Plan to repeat hemoglobin in the morning. Resume Coumadin today. (5) Chronic diastolic heart failure: Patient has history of chronic diastolic heart failure, and is on high- dose torsemide orally as an outpatient. Has baseline stage III chronic kidney disease, with acute kidney injury noted on labs. We will hold spironolactone and torsemide, reassess kidney function tomorrow. Subjective Chief complaint: Postop follow-up, orthopedic surgery performed yesterday 01/12/2019, history of chronic atrial fibrillation, mechanical aortic valve replacement Subjective: Patient somnolent but arousable. Denies any complaints. 1 unit packed red blood cells is currently infusing for hemoglobin level 7.8 this morning. Telemetry reveals rate controlled atrial fibrillation in the range of 90 bpm. Review of Systems Review of Systems: All systems reviewed & are unremarkable except as noted in HPI & below Physical Exam Physical Exam: Temp Pulse Resp BP Pulse Ox 37 C 93 H 16 103/65 97 01/13/19 09:56 01/13/19 09:56 01/13/19 09:56 01/13/19 09:56 01/13/19 09:56 Constitutional: + ill appearing (Chronically ill in appearance without acute distress) Respiratory: normal respiratory effort, lungs clear to auscultation Cardiovascular: Rate/Rhythm: + irregularly irregular Vessels: no JVD Extremities: no edema Mechanical valve sounds noted in appropriate Gastrointestinal (Abdomen): normal bowel sounds, soft, nontender, no hepatosplenomegaly Neurologic: Somnolent, no focal deficits. Results & Data Vital Signs (Past 12 Hours) Vital Signs Temp Pulse Pulse Resp BP BP Pulse Ox 01/13/19 09:56 37 C 93 H 16 103/65 97 01/13/19 09:28 37.1 C 105 H 18 99/65 L 96 01/13/19 07:42 116 H 01/13/19 07:04 37.4 C 94 H 20 114/69 97 01/13/19 04:06 01/13/19 03:35 37.6 C H 113 H 20 100/67 97 01/13/19 00:00 01/12/19 23:35 37.2 C 117 H 19 119/69 98 Pulse Ox 01/13/19 09:56 01/13/19 09:28 01/13/19 07:42 01/13/19 07:04 01/13/19 04:06 97 01/13/19 03:35 01/13/19 00:00 96 01/12/19 23:35 Laboratory Results WBC 7.14 Hemoglobin 7.8 down from 9.3 yesterday Blood count 94 INR 1.7 Creatinine 2.56, trending up compared to 2.1 yesterday and 1.8 on admission. Diagnostic Findings EKG performed 01/11/2019: Atrial fibrillation at 83 bpm, left bundle branch block, unchanged compared to 12/06/2018.
--- NOTE | 2019-01-13 10:58 | Orthopedic Progress Note ---
Date of Service January 13, 2019 Assessment & Plan (1) Intertrochanteric fracture of right hip: Postop day 1 status post ORIF right intertrochanteric fracture with an intermediate length TFN Weightbearing as tolerated right lower extremity Coumadin for DVT prophylaxis PT/OT Mobilize as tolerated Subjective He complains of pain in the right hip but is controlled Physical Exam Physical Exam: Right lower extremity: Light touch sensation is at baseline. He has residual deficits in this leg from a previous stroke. Cap refill is less than 2 seconds. Toes are mobile. Dressing is clean dry and intact Results & Data Vital Signs (Past 12 Hours) Vital Signs Temp Pulse Pulse Resp BP BP Pulse Ox 01/13/19 09:56 37 C 93 H 16 103/65 97 01/13/19 09:28 37.1 C 105 H 18 99/65 L 96 01/13/19 07:42 116 H 01/13/19 07:04 37.4 C 94 H 20 114/69 97 01/13/19 04:06 01/13/19 03:35 37.6 C H 113 H 20 100/67 97 01/13/19 00:00 01/12/19 23:35 37.2 C 117 H 19 119/69 98 Pulse Ox 01/13/19 09:56 01/13/19 09:28 01/13/19 07:42 01/13/19 07:04 01/13/19 04:06 97 01/13/19 03:35 01/13/19 00:00 96 01/12/19 23:35
[2019-01-13 14:15] LABS: Hematocrit (blood only) 28.4 % (42-52); Hemoglobin 8.6 g/dL (14.0-18.0); Mean Corpuscular Hemoglobin 28.6 pg (25-34); Mean Corpuscular Hgb Conc 30.3 g/dL (32-36); Mean Corpuscular Volume 94.4 fL (80-100); RDW Coefficient of Variation 17.6 % (11.5-14.5); RDW Standard Deviation 60.8 fL (36.4-46.3); Red Blood Count 3.01 M/uL (4.7-6.1); White Blood Count 6.99 K/uL (4.8-10.8)
[2019-01-13 14:22] LABS: Mean Platelet Volume 10.3 fL (7.4-10.4); Platelet Count 94 K/uL (130-400)
[2019-01-13 14:39] LABS: Basophils # (auto) 0.03 K/uL (0-0.2); Basophils % (auto) 0.4 %; Eosinophils # (auto) 0.14 K/uL (0-0.5); Immature Granulocytes # (auto) 0.03 K/uL (0.00-0.02); Immature Granulocytes % (auto) 0.4 %; Lymphocytes # (auto) 1.01 K/uL (1.2-3.4); Lymphocytes % (auto) 14.4 %; Monocytes # (auto) 0.79 K/uL (0.11-0.59); Monocytes % (auto) 11.3 %; Neutrophils # (auto) 4.99 K/uL (1.4-6.5); Neutrophils % (auto) 71.5 %
[2019-01-13] MEDS ORDERED: HEPARIN SODIUM/DEXTROSE 25,000 UNITS/500 ML BAG IV SCH (16:00)
[2019-01-13] MEDS ORDERED: WARFARIN SOD 5 MG TAB PO SCH (16:00)
[2019-01-13] MEDS ORDERED: Heparin IV Low Dose *NO* Bolus IV SCH (16:00)
[2019-01-13] MEDS: MoRPHine SULFATE 2 MG/ML CARP IV PRN (18:22)
[2019-01-13 20:01] LABS: Partial Thromboplastin Ratio 1.1; Partial Thromboplastin Time 29.9 Seconds (21.0-31.0)
[2019-01-13] MEDS: METOPROLOL SUCC 25MG EXT REL TAB PO SCH (21:03)
[2019-01-13] MEDS: TERAZOSIN HCL 1 MG CAP PO SCH (21:03)
[2019-01-13] MEDS: DOCUSATE SODIUM/SENNA 50/8.6MG TAB PO SCH (21:04)
[2019-01-13] MEDS ORDERED: HEPARIN IV BOLUS 4,500 UNITS in SYRINGE 0 ML IV ONE (21:30)
[2019-01-14] MEDS: OXYCODONE HCL IR 5 MG TAB (IMMEDIATE RELEASE) PO PRN (01:32)
[2019-01-14 03:27] LABS: Partial Thromboplastin Ratio 4.5
[2019-01-14 04:00] LABS: Partial Thromboplastin Time 121.5 Seconds (21.0-31.0)
[2019-01-14] MEDS: MoRPHine SULFATE 2 MG/ML CARP IV PRN ×2 (04:07→20:23)
[2019-01-14] MEDS: LEVOTHYROXINE SODIUM 75 MCG TABLET PO SCH (06:29)
[2019-01-14 07:26] LABS: Basophils # (auto) 0.02 K/uL (0-0.2); Basophils % (auto) 0.3 %; Eosinophils # (auto) 0.11 K/uL (0-0.5); Eosinophils % (auto) 1.5 %; Hematocrit (blood only) 27.2 % (42-52); Hemoglobin 8.6 g/dL (14.0-18.0); Immature Granulocytes # (auto) 0.02 K/uL (0.00-0.02); Immature Granulocytes % (auto) 0.3 %; Lymphocytes # (auto) 0.98 K/uL (1.2-3.4); Lymphocytes % (auto) 13.2 %; Mean Corpuscular Hemoglobin 29.2 pg (25-34); Mean Corpuscular Hgb Conc 31.6 g/dL (32-36); Mean Corpuscular Volume 92.2 fL (80-100); Mean Platelet Volume 10.7 fL (7.4-10.4); Monocytes # (auto) 0.81 K/uL (0.11-0.59); Monocytes % (auto) 10.9 %; Neutrophils % (auto) 73.8 %; Platelet Count 105 K/uL (130-400); RDW Coefficient of Variation 17.5 % (11.5-14.5); RDW Standard Deviation 59.4 fL (36.4-46.3); Red Blood Count 2.95 M/uL (4.7-6.1); White Blood Count 7.44 K/uL (4.8-10.8)
[2019-01-14 07:53] LABS: INR 2.8 (0.9-1.1); Partial Thromboplastin Ratio 2.5; Prothrombin Time 26.4 Seconds (9.0-12.0)
[2019-01-14] MEDS ORDERED: ERGOCALCIFEROL 50,000 UNITS CAP PO SCH (08:00)
[2019-01-14 08:04] LABS: Albumin Level 2.2 gm/dl (3.4-5.0); BUN Creatinine Ratio 16.4 (10-20); Calcium 8.1 mg/dl (8.5-10.1); Creatinine Clr Calc Pharmacy 34.1 ml/min; Est GFR (African American) 27.7; Est GFR (Non-African American) 23.9; Potassium 4.3 mmol/L (3.5-5.1)
[2019-01-14 08:06] LABS: Albumin Globulin Ratio 0.6 (0.9-2); Bilirubin,Total 0.5 mg/dl (0.2-1); Globulin 3.8 gm/dl (2.5-4.0)
[2019-01-14] MEDS: INSULIN ASPART 100 UNITS/ML 3 ML PEN SC SCH ×4 (08:25→21:51)
[2019-01-14] MEDS: INSULIN GLARGINE SOLOSTAR 100 UNITS/ML 3 ML PEN SC SCH ×2 (08:25→21:51)
[2019-01-14] MEDS: MULTIVITAMIN TAB PO SCH (08:27)
[2019-01-14] MEDS: ATORVASTATIN 40 MG TAB PO SCH (08:27)
[2019-01-14] MEDS: ISOSORBIDE MONO EXTENDED REL 60 MG TABCR PO SCH (08:27)
[2019-01-14] MEDS: ASPIRIN 81 MG ECTAB PO SCH (08:28)
[2019-01-14] MEDS: FERROUS SULFATE 325 MG TAB PO SCH (08:28)
[2019-01-14] MEDS: METOPROLOL SUCC 50MG EXT REL TAB PO SCH (08:28)
[2019-01-14] MEDS: FOLIC ACID 1 MG TAB PO SCH (08:28)
--- NOTE | 2019-01-14 08:41 | Communication Note ---
Date of Service: January 14, 2019 INR: 2.8. Hgb 8.6 Plan: Stop heparin bridge. Reduce coumadin dose from 5 mg daily to 1.25 mg daily for today.
--- NOTE | 2019-01-14 09:27 | Orthopedic Progress Note ---
Date of Service January 14, 2019 Assessment & Plan (1) Intertrochanteric fracture of right hip: Postop day 2 status post ORIF right intertrochanteric fracture with an intermediate length TFN Weightbearing as tolerated right lower extremity Coumadin for DVT prophylaxis PT/OT Mobilize as tolerated A.m. labs as noted above Case discussed with Dr. Murphy. Plan for transfer up to [facility] either today or tomorrow. Subjective Patient sitting up in bed. He is not as alert as he was prior but does answer questions appropriately. He appears comfortable. States that he does have pain in the right hip when moving. No other complaints. Physical Exam Physical Exam: Dressings are clean, dry, intact. Thigh is swollen but soft. Calves are soft nontender. Toes are mobile. Results & Data Vital Signs (Past 12 Hours) Vital Signs Temp Pulse Resp BP Pulse Ox Pulse Ox 01/14/19 08:00 98 01/14/19 07:24 37.4 C 92 H 22 116/75 95 01/14/19 04:02 37.2 C 94 H 20 132/86 96 01/13/19 23:47 37.2 C 88 20 122/75 93 Laboratory Results Laboratory Results WBC 7.44 K/uL (4.8-10.8) 01/14/19 07:14 RBC 2.95 M/uL (4.7-6.1) L 01/14/19 07:14 Hgb 8.6 g/dL (14.0-18.0) L 01/14/19 07:14 Hct 27.2 % (42-52) L 01/14/19 07:14 MCV 92.2 fL (80-100) 01/14/19 07:14 MCH 29.2 pg (25-34) 01/14/19 07:14 MCHC 31.6 g/dL (32-36) L 01/14/19 07:14 RDW Std Deviation 59.4 fL (36.4-46.3) H 01/14/19 07:14 RDW Coeff of Elizabeth 17.5 % (11.5-14.5) H 01/14/19 07:14 Plt Count 105 K/uL (130-400) L 01/14/19 07:14 MPV 10.7 fL (7.4-10.4) H 01/14/19 07:14 Immature Gran % (Auto) 0.3 % 01/14/19 07:14 Neut % (Auto) 73.8 % 01/14/19 07:14 Lymph % (Auto) 13.2 % 01/14/19 07:14 [place] % (Auto) 10.9 % 01/14/19 07:14 Eos % (Auto) 1.5 % 01/14/19 07:14 Baso % (Auto) 0.3 % 01/14/19 07:14 Immature Gran # (Auto) 0.02 K/uL (0.00-0.02) 01/14/19 07:14 Neut # (Auto) 5.50 K/uL (1.4-6.5) 01/14/19 07:14 Lymph # (Auto) 0.98 K/uL (1.2-3.4) L 01/14/19 07:14 Cid[place] # (Auto) 0.81 K/uL (0.11-0.59) H 01/14/19 07:14 Eos # (Auto) 0.11 K/uL (0-0.5) 01/14/19 07:14 Baso # (Auto) 0.02 K/uL (0-0.2) 01/14/19 07:14 Polychromasia 1+ 01/13/19 07:11 PT 26.4 Seconds (9.0-12.0) H 01/14/19 07:14 INR 2.8 (0.9-1.1) H 01/14/19 07:14 APTT 68.0 Seconds (21.0-31.0) H* 01/14/19 07:14 PTT Ratio 2.5 01/14/19 07:14 Sodium 141 mmol/L (136-145) 01/14/19 07:14 Potassium 4.3 mmol/L (3.5-5.1) 01/14/19 07:14 Chloride 109 mmol/L (98-107) H 01/14/19 07:14 Carbon Dioxide 26 mmol/L (21-32) 01/14/19 07:14 Anion Gap 6.0 (3-11) 01/14/19 07:14 BUN 41 mg/dl (7-18) H 01/14/19 07:14 Creatinine 2.48 mg/dl (0.6-1.4) H 01/14/19 07:14 Est Cr Clr Drug Dosing 34.1 ml/min 01/14/19 07:14 Est GFR ( Amer) 27.7 01/14/19 07:14 Est GFR (Non-Af Amer) 23.9 01/14/19 07:14 BUN/Creatinine Ratio 16.4 (10-20) 01/14/19 07:14 Glucose 128 mg/dl (70-99) H 01/14/19 07:14 POC Glucose 133 (70-99) H 01/14/19 07:22 Estimat Average Glucose 137 mg/dl 01/12/19 01:29 Hemoglobin A1c 6.4 % (4.5-5.6) H 01/12/19 01:29 Calcium 8.1 mg/dl (8.5-10.1) L 01/14/19 07:14 Ionized Calcium 1.07 mmol/L (1.12-1.32) L 01/12/19 07:45 Magnesium 2.1 mg/dl (1.8-2.4) 01/12/19 07:45 Total Bilirubin 0.5 mg/dl (0.2-1) 01/14/19 07:14 AST 24 U/L (15-37) 01/14/19 07:14 ALT 11 U/L (12-78) L 01/14/19 07:14 Alkaline Phosphatase 81 U/L (45-117) 01/14/19 07:14 NT-Pro-B Natriuret Pep 3527 pg/ml (0-1800) H 01/12/19 07:45 NT-Pro-B Natriuret Pep Cancelled 01/12/19 07:45 Total Protein 6.0 gm/dl (6.4-8.2) L 01/14/19 07:14 Albumin 2.2 gm/dl (3.4-5.0) L 01/14/19 07:14 Globulin 3.8 gm/dl (2.5-4.0) 01/14/19 07:14 Albumin/Globulin Ratio 0.6 (0.9-2) L 01/14/19 07:14 25-OH Vitamin D Total 24.3 ng/ml (30-100) L 01/12/19 01:29 TSH 2.780 uIu/ml (0.300-4.500) 01/12/19 07:45 TSH Cancelled 01/12/19 07:45 Nasal Screen MRSA (PCR) Positive (Negative) A 01/11/19 18:45 Blood Type O Positive 01/11/19 19:07 Antibody Screen NEGATIVE 01/11/19 19:07 Crossmatch See Detail 01/11/19 19:07
--- NOTE | 2019-01-14 09:49 | Hospitalist Progress Note ---
Date of Service January 14, 2019 Assessment & Plan (1) Fall: This is a patient with falling down prior to hospital stay with right hip fracture (2) Laceration of finger of right hand: -treated in the ED on initial presentation (3) Intertrochanteric fracture of right hip: s/p right hip fracture repair on this admission -This is a 78-year-old male who has significant past medical history of CAD, history of AVR, paroxysmal atrial fibrillation, long-term anticoagulation on warfarin, T2DM, HTN, HLD, hypothyroidism, PVD, anemia of chronic disease, morbid obesity, history of prosthetic valve endocarditis, ascending aortic aneurysm who presents to [facility] ED due to fall prior to arrival. -In ED patient found to have acute mildly displaced and angulated comminuted intertrochanteric fracture of the right femur -s/p Cephalomedullary nailing of right hip intertrochanteric fracture on 01/12/19 -continue pain control medications, bowel regimen while on narcotic pain medications, orthopedic service is following the patient (4) Chronic atrial fibrillation: presence of mechanical aortic valve -continue home dose metoprolol -after 1 unit PRBC was given on 01/13/19 when hemoglobin was 7.8 and patient was started on heparin drip with daily coumadin for anticoagulation -heparin drip stopped on 01/14/19 as INR is 2.8, coumadin to be continued as 1.25 mg daily starting on 01/14/19, trend INR (5) Anemia: Chronic anemia with Acute blood loss anemia -s/p Cephalomedullary nailing of right hip intertrochanteric fracture on 01/12/19 -1 unit PRBC transfused on 01/13/19 when hemoglobin was 7.8 -Hemoglobin now stable at 8.6 (6) S/P aortic valve replacement: history of aortic valve replacement and presence of mechanical aortic valve -Severe aortic 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 with an ascending aortic aneurysm status post May 2007 aortic valve replacement and ascending aorta repair with a #[address] 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 20-30% mid LAD stenosis, 20% diagonal stenosis, 30% LCX stenosis, and a 20-40% RCA stenosis with EF of 45% by LV gram -June 13, 2015 diagnostic cardiac catheterization at [facility] revealed mild nonobstructive coronary artery disease with normally functioning mechanical aortic valve. Specific angiography revealed an ectatic LM, 40% mid LAD lesion, 40% mid LCX stenosis, and a dominant RCA with 40% mid vessel stenosis. 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 Completed 6 weeks of IV Rocephin as of 07/21/2018. -Last echocardiogram 10/30/18 EF 60-65%, mod concentric LVH, mechanical valve noted, no vegetation (10) Chronic diastolic heart failure: -BNP over 3000 but this is much lower than previous hospital lab record -does not appear to be clinically fluid overloaded -Beta shiv, imdur -cardiology recommends holding off diuretics for now due to acute kidney injury (11) HTN (hypertension): -continue metoprolol, imdur -continue Terazosin for BPH -cardiology recommends holding off diuretics for now due to acute kidney injury (12) CKD (chronic kidney disease), stage III: Acute Kidney Injury on Chronic Kidney Disease stage III -baseline Creatinine between 1.9 to 2 -creatinine on 01/12/19 is mildly elevated to 2.1 -creatinine on 01/13/19 is 2.56; shrestha removed on 01/13/19 -01/14/19 creatinine is 2.48 -01/14/19 cardiology recommends holding off diuretics for now due to acute kidney injury (13) T2DM (type 2 diabetes mellitus): Type 2 diabetes mellitus with usp current use of insulin HbA1c 6.9 01/02/19 -Continue Lantus/NovoLog per protocol (14) History of CVA (cerebrovascular accident): -history of stroke in the past with mild residual Right sided weakness -continue Statin -on aspirin and coumadin (15) Hypothyroidism: -TSH is 2.78 -continue levothyroxine (16) Hyperlipidemia: continue statin (17) DVT prophylaxis: -DVT: on coumadin Subjective Patient is awake but appears drowsy this AM. He is verbal and reports not feeling well. He does not describe what is bother him. Does not appear to be in acute pain. Swelling noted of right thigh Physical Exam Constitutional: + obese Eyes: PERRL, conjunctivae normal, anicteric sclerae ENMT: external ear and nose normal, oropharynx normal Neck: normal visual inspection Respiratory: normal respiratory effort, lungs clear to auscultation normal respiratory effort Cardiovascular: Rate/Rhythm: regular rate Heart Sounds: + murmur Gastrointestinal (Abdomen): normal bowel sounds, soft, nontender, no hepatosplenomegaly Musculoskeletal: Head/Neck/Chest: normocephalic and head atraumatic right thigh swelling, has ice pack Neurologic: PERRL, EOMI, accommodation nl, no face palsy, no dysarthria Psychiatric: Patient is awake but appears drowsy this AM. He is verbal and reports not feeling well. He does not describe what is bother him. Does not appear to be in acute pain. Results & Data Vital Signs (Past 12 Hours) Vital Signs Temp Pulse Resp BP Pulse Ox Pulse Ox 01/14/19 08:00 98 01/14/19 07:24 37.4 C 92 H 22 116/75 95 01/14/19 04:02 37.2 C 94 H 20 132/86 96 01/13/19 23:47 37.2 C 88 20 122/75 93 (1) Fall Encounter type: initial encounter Qualified Code(s): W19.XXXA - Unspecified fall, initial encounter
[2019-01-14 11:22] LABS: Partial Thromboplastin Ratio 1.5
--- NOTE | 2019-01-14 12:00 | CT Scan Report ---
HEAD CT NONCONTRAST CT DOSE: 692.11 mGycm HISTORY: altered mental status, rule out stroke TECHNIQUE: Multiaxial CT images of the head were performed without the use of intravenous contrast. A utomated exposure control was utilized for this study. A dose lowering technique was utilized adheri ng to the principles of ALARA. Comparison: Head CT 01/11/2019. Findings: Mild mucosal thickening within the left maxillary sinus. The mastoid air cells are clear. T he calvarium and skull base are intact. There is no mass, hematoma, midline shift, acute infarct. Whi te matter hypodensity is nonspecific but suggestive of microvascular ischemic change. The ventricles and sulci demonstrate mild age-related involutional changes. Old left MCA territory infarct, unchange d. Impression: No significant change compared to the prior study. No acute intracranial abnormality. Electronically signed by: Farhat Vitale M.D. 01/14/2019 11:58 AM
--- NOTE | 2019-01-14 13:04 | Cardiology Progress Note ---
Date of Service January 14, 2019 Assessment & Plan (1) Intertrochanteric fracture of right hip: s/p nailing of intertrochanteric right hip fracture, 01/12/2019 (2) Anemia: Acute postoperative, blood loss anemia. Hemoglobin stable, keep above 8. No current angina. (3) Chronic atrial fibrillation: Atrial fibrillation noted, this is chronic, rates are ranging between 101 110 bpm. Continue oral metoprolol. Heparin bridge discontinued as INR was at goal at 2.8, Coumadin reduced to 1.25 mg by mouth daily. (4) S/P aortic valve replacement: Heparin bridge discontinued, continue Coumadin 1.25 mg daily. (5) Chronic diastolic heart failure: Patient has history of chronic diastolic heart failure, and is on high- dose torsemide orally as an outpatient. Has baseline stage III chronic kidney disease, with acute kidney injury noted on labs. We will hold spironolactone and torsemide, reassess kidney function 01/15/2019. Stat CT of the head performed given his confusion, findings of chronic left MCA territory stroke, without acute intracranial findings. This is reassuring. I recommend that the patient remains on telemetry for today. It may be that he is taking a long time to recover from anesthesia as this was obviously a big medical event for him given his comorbidities. Subjective Chief complaint: Follow-up somnolence, right hip intertrochanteric nailing, history of chronic atrial fibrillation, history of mechanical aortic valve replacement Subjective: patient a little bit less somnolent today compared to yesterday, but per his niece, Aleisha, who is visiting him at the bedside, and is well acquainted with his medical problems, he is not quite himself, as he is confused, and did not recognize her. Review of Systems Review of Systems: Unobtainable due to reduced consciousness Physical Exam Physical Exam: Temp Pulse Resp BP Pulse Ox 37.3 C 96 H 23 138/71 96 01/14/19 11:20 01/14/19 11:20 01/14/19 11:20 01/14/19 11:20 01/14/19 11:20 Constitutional: + ill appearing and + obese Respiratory: normal respiratory effort, lungs clear to auscultation Cardiovascular: Rate/Rhythm: + irregularly irregular Extremities: + edema (Trace ankle edema, knee-high sequential pneumatic compression devices in place) Neurologic: Chronic right sided weakness, more confused compared to baseline. Results & Data Vital Signs (Past 12 Hours) Vital Signs Temp Pulse Resp BP Pulse Ox Pulse Ox 01/14/19 11:20 37.3 C 96 H 23 138/71 96 01/14/19 08:00 98 01/14/19 07:24 37.4 C 92 H 22 116/75 95 01/14/19 04:02 37.2 C 94 H 20 132/86 96 Laboratory Results INR today 01/14/2019 2.8 up from 1.7. Hemoglobin at 7:14 AM was 8.6 compared to 7.8 yesterday, having received 1 unit packed red blood cells yesterday. Creatinine 2.48, compared to 2.56 yesterday, and 1.8 on admission. Medications Administered Current Inpatient Medications Acetaminophen (Tylenol) 325 mg PO Q6H PRN PRN Reason: MILD Pain (Scale 1,2,3) Stop: 02/10/19 18:42 Aspirin (Ecotrin Ectab) 81 mg PO [facility] Stop: 02/11/19 08:59 Last Admin: 01/14/19 08:28 Dose: 81 mg Documented by: Atorvastatin Calcium (Lipitor) 40 mg PO [facility] Stop: 02/11/19 08:59 Last Admin: 01/14/19 08:27 Dose: 40 mg Documented by: Bisacodyl (Dulcolax) 10 mg MS DAILY PRN PRN Reason: Constipation Stop: 02/11/19 17:49 Dextrose (Dextrose 50%) 25 - 50 ml IV UD PRN; Protocol PRN Reason: Hypoglycemia Protocol Stop: 02/10/19 18:42 Ergocalciferol (Vitamin D2) 50,000 units PO Warner@0900 [facility] Stop: 02/13/19 07:59 Last Admin: 01/14/19 08:25 Dose: 50,000 units Documented by: Ferrous Sulfate (Feosol) 325 mg PO [facility] Stop: 02/11/19 08:59 Last Admin: 01/14/19 08:28 Dose: 325 mg Documented by: Folic Acid (Folvite) [facility] [place]: 02/11/19 08:59 Last Admin: 01/14/19 08:28 Dose: 1 mg Documented by: Glucagon (Glucagen) 1 mg SQ UD PRN; Protocol PRN Reason: Hypoglycemia Protocol Stop: 02/10/19 18:42 Glucose (Glucose 40%) 15 - 30 gm PO UD PRN; Protocol PRN Reason: Hypoglycemia Protocol Stop: 02/10/19 18:42 Glucose (Dex4 Glucose) 4 - 8 tabs PO UD PRN; Protocol PRN Reason: Hypoglycemia Protocol Stop: 02/10/19 18:42 Sodium Chloride (Nss) 250 mls @ 15 mls/hr IV .[id number] PRN PRN Reason: For Transfusion Stop: 02/12/19 08:04 Insulin Aspart (Novolog Flexpen) 0 units SC ACHS [facility] Stop: 02/10/19 19:29 Last Admin: 01/14/19 12:52 Dose: 9 units Documented by: Insulin Glargine (Lantus Solostar Pen) 0 units SC BID [facility] Stop: 02/10/19 19:29 Last Admin: 01/14/19 08:25 Dose: 10 units Documented by: Isosorbide Mononitrate (Imdur Extended Rel) 60 mg PO QAM [facility] Stop: 02/11/19 08:59 Last Admin: 01/14/19 08:27 Dose: 60 mg Documented by: Levothyroxine Sodium (Synthroid) 75 mcg PO DAILYBB [facility] Stop: 02/11/19 06:29 Last Admin: 01/14/19 06:29 Dose: 75 mcg Documented by: Magnesium Hydroxide (Milk Of Magnesia) 30 ml PO DAILY PRN PRN Reason: Constipation Stop: 02/10/19 18:42 Metoprolol Succinate (Toprol Xl) 25 mg PO HS [facility] Stop: 02/10/19 20:59 Last Admin: 01/13/19 21:03 Dose: 25 mg Documented by: Metoprolol Succinate (Toprol Xl) 50 mg PO QAM [facility] Stop: 02/11/19 08:59 Last Admin: 01/14/19 08:28 Dose: 50 mg Documented by: Miscellaneous (Carbohydrates For Hypoglycemia) 15 - 30 gm PO UD PRN PRN Reason: Hypoglycemia Treatment Stop: 02/10/19 18:42 Morphine Sulfate (Morphine Sulfate) 2 mg IV Q2H PRN PRN Reason: Severe Pain Stop: 01/25/19 18:42 Last Admin: 01/14/19 04:07 Dose: 2 mg Documented by: Multivitamins (Multivitamin Tab) 1 tab PO QAM [facility] Stop: 02/12/19 08:59 Last Admin: 01/14/19 08:27 Dose: 1 tab Documented by: Naloxone HCl (Narcan) 0.1 mg IV UD PRN PRN Reason: Opiate Overdose Stop: 02/10/19 18:42 Naloxone HCl (Narcan) 0.1 mg IV UD PRN PRN Reason: Opioid Overdose Stop: 02/11/19 17:42 Nitroglycerin (Nitrostat) 0.4 mg SL UD PRN PRN Reason: Chest Pain Stop: 02/10/19 18:42 Ondansetron HCl (Zofran) 4 mg IV Q6H PRN PRN Reason: Nausea And Vomiting Stop: 02/10/19 16:54 Last Admin: 01/12/19 13:21 Dose: 4 mg Documented by: Oxycodone HCl (Roxicodone Immediate Rel) 5 mg PO Q4H PRN PRN Reason: MODERATE Pain (Scale 4,5,6) Stop: 01/25/19 18:42 Last Admin: 01/14/19 01:32 Dose: 5 mg Documented by: Senna/Docusate Sodium (Senokot S) 2 tab PO [facility] Stop: 02/10/19 20:59 Last Admin: 01/13/19 21:04 Dose: 2 tab Documented by: Terazosin HCl (Hytrin) 2 mg PO [facility] Stop: 02/10/19 20:59 Last Admin: 01/13/19 21:03 Dose: 2 mg Documented by: Torsemide (Demadex) 60 mg PO SuTuThSa@0900 [facility] Stop: 02/12/19 08:59 Last Admin: 01/13/19 08:54 Dose: 60 mg Documented by: Torsemide (Demadex) 40 mg PO MoWeFr@0900 [facility] Stop: 02/11/19 08:59 Last Admin: 01/12/19 08:00 Dose: 40 mg Documented by: Warfarin Sodium (Coumadin) 1.25 mg PO DAILY@1600 [facility] Stop: 02/13/19 15:59
[2019-01-14] MEDS ORDERED: WARFARIN SOD 1.25 MG TAB PO SCH (16:00)
[2019-01-14] MEDS ORDERED: WARFARIN SOD 2.5 MG TAB PO SCH (16:00)
[2019-01-14] MEDS ORDERED: FUROSEMIDE 40 MG/4 ML VIAL IV STA (18:54)
--- NOTE | 2019-01-14 18:59 | XRay Report ---
XR chest 1V portable HISTORY: follow if lung infiltrates COMPARISON: Chest 01/11/2019. FINDINGS: There are low lung volumes. The heart remains mildly enlarged. Poststernotomy changes. Righ t greater than left interstitial and vascular thickening suggestive of asymmetric congestive change. Bibasilar densities and trace bilateral pleural effusions persist. Healing/healed right humeral neck fracture. IMPRESSION: 1. Slight progression of the asymmetric congestive change. 2. Bibasilar densities and trace bilateral pleural effusions persist. Electronically signed by: Farhat Vitale M.D. 01/14/2019 6:57 PM
[2019-01-14] MEDS: TERAZOSIN HCL 1 MG CAP PO SCH (20:25)
[2019-01-14] MEDS: METOPROLOL SUCC 25MG EXT REL TAB PO SCH (21:21)
[2019-01-14] MEDS: DOCUSATE SODIUM/SENNA 50/8.6MG TAB PO SCH (21:21)
[2019-01-15] MEDS: MoRPHine SULFATE 2 MG/ML CARP IV PRN (05:02)
[2019-01-15] MEDS: LEVOTHYROXINE SODIUM 75 MCG TABLET PO SCH (06:29)
[2019-01-15 08:12] LABS: Basophils # (auto) 0.02 K/uL (0-0.2); Basophils % (auto) 0.3 %; Eosinophils # (auto) 0.12 K/uL (0-0.5); Eosinophils % (auto) 1.6 %; Hemoglobin 8.5 g/dL (14.0-18.0); Immature Granulocytes # (auto) 0.02 K/uL (0.00-0.02); Immature Granulocytes % (auto) 0.3 %; Lymphocytes # (auto) 1.25 K/uL (1.2-3.4); Lymphocytes % (auto) 16.5 %; Mean Corpuscular Hemoglobin 29.3 pg (25-34); Mean Corpuscular Hgb Conc 32.7 g/dL (32-36); Mean Corpuscular Volume 89.7 fL (80-100); Mean Platelet Volume 10.1 fL (7.4-10.4); Monocytes # (auto) 0.76 K/uL (0.11-0.59); Monocytes % (auto) 10.1 %; Neutrophils # (auto) 5.39 K/uL (1.4-6.5); Neutrophils % (auto) 71.2 %; Platelet Count 117 K/uL (130-400); RDW Coefficient of Variation 17.7 % (11.5-14.5); RDW Standard Deviation 58.2 fL (36.4-46.3); White Blood Count 7.56 K/uL (4.8-10.8)
[2019-01-15 08:13] LABS: Base Excess VBG 3.1 mEq/L; Oxygen Saturation VBG 72.9 %; pH VBG 7.39 (7.36-7.41)
[2019-01-15 08:24] LABS: INR 2.5 (0.9-1.1)
[2019-01-15] MEDS: INSULIN ASPART 100 UNITS/ML 3 ML PEN SC SCH ×4 (08:34→21:00)
[2019-01-15] MEDS: INSULIN GLARGINE SOLOSTAR 100 UNITS/ML 3 ML PEN SC SCH ×2 (08:35→20:59)
[2019-01-15] MEDS: FERROUS SULFATE 325 MG TAB PO SCH (08:36)
[2019-01-15] MEDS: FOLIC ACID 1 MG TAB PO SCH (08:36)
[2019-01-15] MEDS: ASPIRIN 81 MG ECTAB PO SCH (08:36)
[2019-01-15] MEDS: MULTIVITAMIN TAB PO SCH (08:37)
[2019-01-15] MEDS: METOPROLOL SUCC 50MG EXT REL TAB PO SCH ×2 (08:37→20:54)
[2019-01-15] MEDS: ISOSORBIDE MONO EXTENDED REL 60 MG TABCR PO SCH (08:37)
[2019-01-15] MEDS: ATORVASTATIN 40 MG TAB PO SCH (08:37)
[2019-01-15 08:45] LABS: Albumin Level 2.2 gm/dl (3.4-5.0); BUN Creatinine Ratio 21.8 (10-20); Calcium 8.1 mg/dl (8.5-10.1); Creatinine Clr Calc Pharmacy 35.8 ml/min; Est GFR (African American) 29.6; Est GFR (Non-African American) 25.5; Potassium 4.1 mmol/L (3.5-5.1)
[2019-01-15 08:48] LABS: Albumin Globulin Ratio 0.6 (0.9-2); Bilirubin,Total 0.7 mg/dl (0.2-1); Globulin 3.9 gm/dl (2.5-4.0); Total Protein 6.1 gm/dl (6.4-8.2)
--- NOTE | 2019-01-15 09:42 | Anesthesiology Progress Note ---
Date of Service January 15, 2019 Anesthesia Post Procedure Vital Signs Vital Signs: Temp Pulse Pulse Resp BP BP Pulse Ox 01/15/19 07:06 37.2 C 94 H 20 121/76 94 01/15/19 02:53 36.3 C L 100 H 24 113/73 94 01/14/19 23:29 37.1 C 109 H 32 H 155/90 H 94 01/14/19 20:00 01/14/19 18:35 37.3 C 106 H 19 143/95 H 95 01/14/19 16:00 01/14/19 15:17 37.0 C 93 H 19 127/67 95 01/14/19 12:00 01/14/19 11:20 37.3 C 96 H 23 138/71 96 Pulse Ox 01/15/19 07:06 01/15/19 02:53 01/14/19 23:29 01/14/19 20:00 98 01/14/19 18:35 01/14/19 16:00 98 01/14/19 15:17 01/14/19 12:00 99 01/14/19 11:20 Pain Intensity Right Hip: Pain Intensity: 0 Notes Mental Status: alert / awake / arousable and participated in evaluation Nausea / Vomiting: adequately controlled Pain: adequately controlled Airway Patency, RR, SpO2: stable & adequate BP & HR: stable & adequate Hydration State: stable & adequate
--- NOTE | 2019-01-15 10:03 | Cardiology Progress Note ---
Date of Service January 15, 2019 Assessment & Plan (1) Intertrochanteric fracture of right hip: s/p nailing of intertrochanteric right hip fracture, 01/12/2019 (2) Anemia: Acute postoperative, blood loss anemia. Hemoglobin stable, keep above 8. No current angina. (3) Chronic atrial fibrillation: Atrial fibrillation noted, this is chronic, rates controled. Continue oral metoprolol. INR at goal, 2.5 today. (4) S/P aortic valve replacement: INR 2.5 Continue Coumadin 1.25 mg daily. (5) Chronic diastolic heart failure: Patient has history of chronic diastolic heart failure, and is on high- dose torsemide orally as an outpatient. Has baseline stage III chronic kidney disease, with acute kidney injury noted on labs. We will hold spironolactone and torsemide. Increase activity as tolerated. No certain how long pt has been somnolent,since I did not see him pre op. Was her lethargic at home with resultant fall? This must be considered. Subjective Chief complaint: Follow-up somnolence, right hip intertrochanteric nailing, history of chronic atrial fibrillation, history of mechanical aortic valve replacement Subjective: Still somnolent, but wakes up with verbal commands. Telemetry reveals (chronic) AF V rate in the 80s to 90s in bed. Review of Systems Review of Systems: All systems reviewed & are unremarkable except as noted in HPI & below Physical Exam Physical Exam: Temp Pulse Resp BP Pulse Ox 37.2 C 94 H 20 121/76 94 01/15/19 07:06 01/15/19 07:06 01/15/19 07:06 01/15/19 07:06 01/15/19 07:06 Constitutional: + ill appearing Respiratory: normal respiratory effort, lungs clear to auscultation Cardiovascular: Rate/Rhythm: + irregularly irregular prosthetic valve sounds noted. Gastrointestinal (Abdomen): normal bowel sounds, soft, nontender, no hepatosplenomegaly Neurologic: chronic Right arm hemiparesis, moves other extremities on command. Results & Data Vital Signs (Past 12 Hours) Vital Signs Temp Pulse Resp BP BP Pulse Ox 01/15/19 07:06 37.2 C 94 H 20 121/76 94 01/15/19 02:53 36.3 C L 100 H 24 113/73 94 01/14/19 23:29 37.1 C 109 H 32 H 155/90 H 94
--- NOTE | 2019-01-15 11:30 | Hospitalist Progress Note ---
Date of Service January 15, 2019 Assessment & Plan (1) Fall: This is a patient with falling down prior to hospital stay with right hip fracture (2) Laceration of finger of right hand: -treated in the ED on initial presentation (3) Intertrochanteric fracture of right hip: s/p right hip fracture repair on this admission -This is a 78-year-old male who has significant past medical history of CAD, history of AVR, paroxysmal atrial fibrillation, long-term anticoagulation on warfarin, T2DM, HTN, HLD, hypothyroidism, PVD, anemia of chronic disease, morbid obesity, history of prosthetic valve endocarditis, ascending aortic aneurysm who presents to [facility] ED due to fall prior to arrival. -In ED patient found to have acute mildly displaced and angulated comminuted intertrochanteric fracture of the right femur -s/p Cephalomedullary nailing of right hip intertrochanteric fracture on 01/12/19 -continue pain control medications, bowel regimen while on narcotic pain medications, orthopedic service is following the patient (4) Chronic atrial fibrillation: presence of mechanical aortic valve -continue home dose metoprolol -after 1 unit PRBC was given on 01/13/19 when hemoglobin was 7.8 and patient was started on heparin drip with daily coumadin for anticoagulation -heparin drip stopped on 01/14/19 as INR is 2.8, coumadin given as 1.25 mg daily starting on 01/14/19 -INR on 01/15/19 is 2.5, increase coumadin dose to 2.5 mg daily for now (5) Anemia: Chronic anemia with Acute blood loss anemia -s/p Cephalomedullary nailing of right hip intertrochanteric fracture on 01/12/19 -1 unit PRBC transfused on 01/13/19 when hemoglobin was 7.8 -Hemoglobin now stable at 8.6 to 8.5 (6) S/P aortic valve replacement: history of aortic valve replacement and presence of mechanical aortic valve -Severe aortic 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 with an ascending aortic aneurysm status post May 2007 aortic valve replacement and ascending aorta repair with a #[address] 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 20-30% mid LAD stenosis, 20% diagonal stenosis, 30% LCX stenosis, and a 20-40% RCA stenosis with EF of 45% by LV gram -June 13, 2015 diagnostic cardiac catheterization at [facility] revealed mild nonobstructive coronary artery disease with normally functioning mechanical a ortic valve. Specific angiography revealed an ectatic LM, 40% mid LAD lesion, 40% mid LCX stenosis, and a dominant RCA with 40% mid vessel stenosis. 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 Completed 6 weeks of IV Rocephin as of 07/21/2018. -Last echocardiogram 10/30/18 EF 60-65%, mod concentric LVH, mechanical valve noted, no vegetation (10) Chronic diastolic heart failure: -BNP over 3000 but this is much lower than previous hospital lab record -does not appear to be clinically fluid overloaded -Beta shiv, imdur -home dose torsemide held since 01/14/19 due to concern of MAYLIN, Lasix IV 40 mg x 1 was given on 01/14/19 evening -continue to re-assesses volume status and renal function before resuming steady diuretic dosage (11) HTN (hypertension): -continue metoprolol, imdur -continue Terazosin for BPH (12) CKD (chronic kidney disease), stage III: Acute Kidney Injury on Chronic Kidney Disease stage III -baseline Creatinine between 1.9 to 2 -creatinine on 01/12/19 is mildly elevated to 2.1 -creatinine on 01/13/19 is 2.56; shrestha removed on 01/13/19 -01/14/19 creatinine is 2.48; home dose torsemide held since 01/14/19 due to concern of MAYLIN, Lasix IV 40 mg x 1 was given on 01/14/19 evening -01/15/19 creatinine is 2.35, monitor as shrestha is resumed Urinary retention -He is returned on a shrestha as of 01/14/19 because it was presumed that patient's urinary retention was causing him to be uncomfortable on 01/14/19 which made alertness and orientation difficult to assess. CT head on 10/20/19 with no acute intracranial bleeding -continue shrestha for now (13) T2DM (type 2 diabetes mellitus): Type 2 diabetes mellitus with [facility] current use of insulin HbA1c 6.9 01/02/19 -Continue Lantus/NovoLog per protocol (14) History of CVA (cerebrovascular accident): -history of stroke in the past with mild residual Right sided weakness -continue Statin -on aspirin and coumadin (15) Hypothyroidism: -TSH is 2.78 -continue levothyroxine (16) Hyperlipidemia: continue statin (17) DVT prophylaxis: -DVT: on coumadin Disposition: transfer from telemetry to medical/surgical dangelo for continued PT/OT while in hospital Subjective Patient appears to be his mental baseline status prior to the surgery. He takes time to answer questions. But he is a lot more comfortable and oriented today compared to yesterday. He received Lasix IV 40 mg yesterday night. He is returned on a shrestha because it was presumed that patient's urinary retention was causing him to be uncomfortable yesterday. patient denies acute pain. ice over the right thigh in dressing. chronic atrial fibrillation with controlled heart rates Physical Exam Constitutional: + obese Eyes: PERRL, conjunctivae normal, anicteric sclerae ENMT: external ear and nose normal, oropharynx normal Neck: normal visual inspection Respiratory: normal respiratory effort, lungs clear to auscultation normal respiratory effort Cardiovascular: Rate/Rhythm: regular rate and + irregularly irregular Heart Sounds: + murmur Gastrointestinal (Abdomen): normal bowel sounds, soft, nontender, no hepatosplenomegaly Musculoskeletal: Head/Neck/Chest: normocephalic and head atraumatic ice over the right thigh in dressing Neurologic: PERRL, EOMI, accommodation nl, no face palsy, no dysarthria Psychiatric: Orientation: alert and cooperative Results & Data Vital Signs (Past 12 Hours) Vital Signs Temp Pulse Resp BP BP Pulse Ox 01/15/19 11:18 36.8 C 97 H 19 126/76 94 01/15/19 07:06 37.2 C 94 H 20 121/76 94 01/15/19 02:53 36.3 C L 100 H 24 113/73 94 01/14/19 23:29 37.1 C 109 H 32 H 155/90 H 94 (1) Fall Encounter type: initial encounter Qualified Code(s): W19.XXXA - Unspecified fall, initial encounter
--- NOTE | 2019-01-15 11:52 | Orthopedic Progress Note ---
Date of Service January 15, 2019 Assessment & Plan (1) Intertrochanteric fracture of right hip: Postop day 3 status post ORIF right intertrochanteric fracture with an intermediate length TFN Weightbearing as tolerated right lower extremity Coumadin for DVT prophylaxis PT/OT Mobilize as tolerated Orthopedics will sign off at this time. Please call with any questions. Instructions placed in the discharge section of the EMR. Subjective Patient sitting up in bed eating lunch. He is much more alert today. Answering all questions appropriately. Having some hip pain with movement but otherwise pain controlled at rest. Patient is being transferred to regular floor at this point in time. Physical Exam Physical Exam: Dressings are intact. Thigh is swollen but not tense. Calves are soft nontender. Neurovascular intact. Toes are mobile. Results & Data Vital Signs (Past 12 Hours) Vital Signs Temp Pulse Resp BP BP Pulse Ox 01/15/19 11:18 36.8 C 97 H 19 126/76 94 01/15/19 07:06 37.2 C 94 H 20 121/76 94 01/15/19 02:53 36.3 C L 100 H 24 113/73 94
[2019-01-15] MEDS: OXYCODONE HCL IR 5 MG TAB (IMMEDIATE RELEASE) PO PRN ×2 (15:35→21:05)
[2019-01-15] MEDS ORDERED: WARFARIN SOD 2.5 MG TAB PO SCH (16:00)
[2019-01-15] MEDS: DOCUSATE SODIUM/SENNA 50/8.6MG TAB PO SCH (20:54)
[2019-01-15] MEDS: TERAZOSIN HCL 1 MG CAP PO SCH (20:54)
[2019-01-15] MEDS: METOPROLOL SUCC 25MG EXT REL TAB PO SCH (20:55)
[2019-01-16] MEDS: LEVOTHYROXINE SODIUM 75 MCG TABLET PO SCH (04:58)
[2019-01-16] MEDS: OXYCODONE HCL IR 5 MG TAB (IMMEDIATE RELEASE) PO PRN ×2 (05:00→09:08)
[2019-01-16 06:32] LABS: INR 2.9 (0.9-1.1); Prothrombin Time 27.7 Seconds (9.0-12.0)
[2019-01-16] MEDS: INSULIN ASPART 100 UNITS/ML 3 ML PEN SC SCH ×4 (08:59→20:42)
[2019-01-16] MEDS: FOLIC ACID 1 MG TAB PO SCH (09:00)
[2019-01-16] MEDS: FERROUS SULFATE 325 MG TAB PO SCH (09:00)
[2019-01-16] MEDS: INSULIN GLARGINE SOLOSTAR 100 UNITS/ML 3 ML PEN SC SCH ×2 (09:00→20:43)
[2019-01-16] MEDS: ASPIRIN 81 MG ECTAB PO SCH (09:00)
[2019-01-16] MEDS: MULTIVITAMIN TAB PO SCH (09:01)
[2019-01-16] MEDS: ATORVASTATIN 40 MG TAB PO SCH (09:01)
[2019-01-16] MEDS: ISOSORBIDE MONO EXTENDED REL 60 MG TABCR PO SCH (09:01)
[2019-01-16] MEDS: MoRPHine SULFATE 2 MG/ML CARP IV PRN ×2 (10:30→12:46)
--- NOTE | 2019-01-16 14:58 | Hospitalist Progress Note ---
Date of Service January 16, 2019 Assessment & Plan (1) Fall: This is a patient with falling down prior to hospital stay with right hip fracture (2) Laceration of finger of right hand: -treated in the ED on initial presentation (3) Intertrochanteric fracture of right hip: s/p right hip fracture repair on this admission -This is a 78-year-old male who has significant past medical history of CAD, history of AVR, paroxysmal atrial fibrillation, long-term anticoagulation on warfarin, T2DM, HTN, HLD, hypothyroidism, PVD, anemia of chronic disease, morbid obesity, history of prosthetic valve endocarditis, ascending aortic aneurysm who presents to [facility] ED due to fall prior to arrival. -In ED patient found to have acute mildly displaced and angulated comminuted intertrochanteric fracture of the right femur -s/p Cephalomedullary nailing of right hip intertrochanteric fracture on 01/12/19 -continue pain control medications, bowel regimen while on narcotic pain medications, orthopedic service is following the patient (4) Chronic atrial fibrillation: presence of mechanical aortic valve -continue home dose metoprolol -after 1 unit PRBC was given on 01/13/19 when hemoglobin was 7.8 and patient was started on heparin drip with daily coumadin for anticoagulation -heparin drip stopped on 01/14/19 as INR is 2.8, coumadin given as 1.25 mg daily starting on 01/14/19 -INR on 01/15/19 is 2.5, increase coumadin dose to 2.5 mg daily for now -INR on 01/16/19 is 2.9. hold coumadin today (5) Anemia: Chronic anemia with Acute blood loss anemia -s/p Cephalomedullary nailing of right hip intertrochanteric fracture on 01/12/19 -1 unit PRBC transfused on 01/13/19 when hemoglobin was 7.8 -Hemoglobin now stable at 8.6 to 8.5 (6) S/P aortic valve replacement: history of aortic valve replacement and presence of mechanical aortic valve -Severe aortic 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 with an ascending aortic aneurysm status post May 2007 aortic valve replacement and ascending aorta repair with a #[address] [employer] composite graft with reimplantation of the epicardial coronary arteries, cardiac tamponade secondary to a large pericardial effusion status post emergent evacuation with redo sternotomy on 06/29/2007 (7) shelter current use of anticoagulant: -on coumadin (8) Coronary artery disease: -Mild ASCVD by May 01, 2007 catheterization. 20-30% mid LAD stenosis, 20% diagonal stenosis, 30% LCX stenosis, and a 20-40% RCA stenosis with EF of 45% by LV gram -June 13, 2015 [facility] mild nonobstructive coronary artery disease with normally functioning mechanical aortic valve. Specific angiography revealed an ectatic LM, 40% mid LAD lesion, 40% mid LCX stenosis, and a dominant RCA with 40% mid vessel stenosis. 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 Completed 6 weeks of IV Rocephin as of 07/21/2018. -Last echocardiogram 10/30/18 EF 60-65%, mod concentric LVH, mechanical valve noted, no vegetation (10) Chronic diastolic heart failure: -BNP over 3000 but this is much lower than previous hospital lab record -does not appear to be clinically fluid overloaded -Beta shiv, imdur -home dose torsemide held since 01/14/19 due to concern of MAYLIN, Lasix IV 40 mg x 1 was given on 01/14/19 evening -resume torsemide as lower than home dose as 40 mg daily starting on 01/16/19 (11) HTN (hypertension): -continue metoprolol, imdur -continue Terazosin for BPH (12) CKD (chronic kidney disease), stage III: Acute Kidney Injury on Chronic Kidney Disease stage III -baseline Creatinine between 1.9 to 2 -creatinine on 01/12/19 is mildly elevated to 2.1 -creatinine on 01/13/19 is 2.56; shrestha removed on 01/13/19 -01/14/19 creatinine is 2.48; home dose torsemide held since 01/14/19 due to concern of MAYLIN, Lasix IV 40 mg x 1 was given on 01/14/19 evening -01/15/19 creatinine is 2.35 Urinary retention -He is returned on a shrestha as of 01/14/19 because it was presumed that patient's urinary retention was causing him to be uncomfortable on 01/14/19 which made alertness and orientation difficult to assess. CT head on 01/14/19 with no acute intracranial bleeding -continue shrestha for now -shrestha to be removed at 9 AM on 01/17/19 for planned trial of void (13) T2DM (type 2 diabetes mellitus): Type 2 diabetes mellitus with shelter current use of insulin HbA1c 6.9 01/02/19 -Continue Lantus/NovoLog per protocol (14) History of CVA (cerebrovascular accident): -history of stroke in the past with mild residual Right sided weakness -continue Statin -on aspirin and coumadin (coumadin held on 01/16/19 as INR is 2.9) (15) Hypothyroidism: -TSH is 2.78 -continue levothyroxine (16) Hyperlipidemia: continue statin (17) DVT prophylaxis: -DVT: on coumadin Disposition: transfer from telemetry to medical/surgical dangelo for continued PT/OT while in hospital Subjective Patient is a poor historian and reports that he did not do activities today. Nurse corroborates that patient did some physical and occupational therapies but concern that the patient will be more wheelchair bound because of poor mobility overallthan being successfully ambulating in near future. Patient does not have acute distress. denies pain anywhere. he does not feel short of breath and he reports he does not use oxygen at home. dicsussed with nurse about trial of void tomorrow AM Physical Exam Constitutional: + obese Eyes: PERRL, conjunctivae normal, anicteric sclerae ENMT: external ear and nose normal, oropharynx normal Neck: normal visual inspection Respiratory: normal respiratory effort, lungs clear to auscultation normal respiratory effort Cardiovascular: Rate/Rhythm: regular rate and + irregularly irregular Heart Sounds: + murmur Gastrointestinal (Abdomen): normal bowel sounds, soft, nontender, no hepatosplenomegaly Musculoskeletal: Head/Neck/Chest: normocephalic and head atraumatic Neurologic: PERRL, EOMI, accommodation nl, no face palsy, no dysarthria Psychiatric: Orientation: alert and cooperative Genitourinary: shrestha Results & Data Vital Signs (Past 12 Hours) Vital Signs Temp Pulse Resp BP Pulse Ox Pulse Ox 01/16/19 09:16 91 01/16/19 07:48 36.6 C 90 18 116/70 91 (1) Fall Encounter type: initial encounter Qualified Code(s): W19.XXXA - Unspecified fall, initial encounter
[2019-01-16] MEDS: TORSEMIDE 10 MG TAB PO SCH (16:30)
[2019-01-16] MEDS: METOPROLOL SUCC 25MG EXT REL TAB PO SCH (20:13)
[2019-01-16] MEDS: TERAZOSIN HCL 1 MG CAP PO SCH (20:14)
[2019-01-16] MEDS: DOCUSATE SODIUM/SENNA 50/8.6MG TAB PO SCH (20:32)
[2019-01-17 05:31] LABS: Basophils # (auto) 0.04 K/uL (0-0.2); Basophils % (auto) 0.6 %; Eosinophils % (auto) 4.4 %; Hematocrit (blood only) 24.6 % (42-52); Immature Granulocytes # (auto) 0.02 K/uL (0.00-0.02); Immature Granulocytes % (auto) 0.3 %; Lymphocytes # (auto) 1.26 K/uL (1.2-3.4); Lymphocytes % (auto) 18.4 %; Mean Corpuscular Hemoglobin 29.4 pg (25-34); Mean Corpuscular Hgb Conc 32.5 g/dL (32-36); Mean Corpuscular Volume 90.4 fL (80-100); Mean Platelet Volume 10.5 fL (7.4-10.4); Monocytes # (auto) 0.63 K/uL (0.11-0.59); Monocytes % (auto) 9.2 %; Neutrophils # (auto) 4.58 K/uL (1.4-6.5); Neutrophils % (auto) 67.1 %; Platelet Count 141 K/uL (130-400); RDW Coefficient of Variation 17.5 % (11.5-14.5); RDW Standard Deviation 57.8 fL (36.4-46.3); Red Blood Count 2.72 M/uL (4.7-6.1); White Blood Count 6.83 K/uL (4.8-10.8)
[2019-01-17 05:39] LABS: INR 3.2 (0.9-1.1); Prothrombin Time 30.3 Seconds (9.0-12.0)
[2019-01-17 06:01] LABS: Albumin Level 1.9 gm/dl (3.4-5.0); BUN Creatinine Ratio 26.5 (10-20); Calcium 7.8 mg/dl (8.5-10.1); Creatinine Clr Calc Pharmacy 40.8 ml/min; Est GFR (African American) 34.7
[2019-01-17 06:04] LABS: Albumin Globulin Ratio 0.5 (0.9-2); Bilirubin,Total 0.9 mg/dl (0.2-1); Globulin 3.9 gm/dl (2.5-4.0); Total Protein 5.8 gm/dl (6.4-8.2)
[2019-01-17 06:12] LABS: Potassium 3.8 mmol/L (3.5-5.1)
[2019-01-17] MEDS: LEVOTHYROXINE SODIUM 75 MCG TABLET PO SCH (06:33)
[2019-01-17] MEDS: INSULIN ASPART 100 UNITS/ML 3 ML PEN SC SCH ×4 (09:10→21:19)
[2019-01-17] MEDS: FOLIC ACID 1 MG TAB PO SCH (09:13)
[2019-01-17] MEDS: METOPROLOL SUCC 50MG EXT REL TAB PO SCH (09:13)
[2019-01-17] MEDS: FERROUS SULFATE 325 MG TAB PO SCH (09:13)
[2019-01-17] MEDS: ISOSORBIDE MONO EXTENDED REL 60 MG TABCR PO SCH (09:14)
[2019-01-17] MEDS: TORSEMIDE 10 MG TAB PO SCH (09:14)
[2019-01-17] MEDS: ASPIRIN 81 MG ECTAB PO SCH (09:14)
[2019-01-17] MEDS: MULTIVITAMIN TAB PO SCH (09:14)
[2019-01-17] MEDS: ATORVASTATIN 40 MG TAB PO SCH (09:14)
[2019-01-17] MEDS: INSULIN GLARGINE SOLOSTAR 100 UNITS/ML 3 ML PEN SC SCH ×2 (09:15→21:18)
[2019-01-17] MEDS: MoRPHine SULFATE 2 MG/ML CARP IV PRN (09:15)
[2019-01-17] MEDS: OXYCODONE HCL IR 5 MG TAB (IMMEDIATE RELEASE) PO PRN (09:15)
--- NOTE | 2019-01-17 12:02 | Cardiology Progress Note ---
Date of Service January 17, 2019 Assessment & Plan (1) Chronic atrial fibrillation: (2) S/P aortic valve replacement: (3) 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: agree with holding coumadin for INR of 3.2 , goal 2.5, range 2-3 given AF, mechanical AV. Pt back on torsemide. Significant urine output noted. Making slow , steady progress. Subjective Patient feeling improved. Mentation improved compared to two days ago. No longer on telemetry. Review of Systems Review of Systems: All systems reviewed & are unremarkable except as noted in HPI & below Physical Exam Physical Exam: Temp Pulse Resp BP Pulse Ox 36.7 C 83 16 116/73 95 01/17/19 06:57 01/17/19 06:57 01/17/19 06:57 01/17/19 06:57 01/17/19 06:57 Constitutional: WD/WN, vitals as above Respiratory: normal respiratory effort, lungs clear to auscultation Cardiovascular: Rate/Rhythm: + irregularly irregular Extremities: + edema (trace edema, chronic venous stasis changes ) crisp prosthetic heart sounds Neurologic: moves all 4 extremities. Results & Data Vital Signs (Past 12 Hours) Vital Signs Temp Pulse Resp BP Pulse Ox 01/17/19 06:57 36.7 C 83 16 116/73 95
--- NOTE | 2019-01-17 18:54 | Hospitalist Progress Note ---
Date of Service January 17, 2019 Assessment & Plan (1) Fall: Patient had a fall resulting in right hip fracture PT/OT Needs Rehab placement (2) Laceration of finger of right hand: treated in the ED on initial presentation (3) Intertrochanteric fracture of right hip: Acute mildly displaced and angulated comminuted intertrochanteric fracture of the right femur s/p Cephalomedullary nailing of right hip intertrochanteric fracture on 01/12/19 Postop anemia S/P PRBCs Appreciate Orthopedics Input Needs follow up with Ortho upon discharge Continue pain control Bowel regimen to prevent constipation Continue wound care PT/OT (4) Chronic atrial fibrillation: H/O Mechanical aortic valve continue metoprolol Coumadin on hold INR 3.2 Target INR 2-3 (5) Anemia: Chronic anemia with Acute blood loss anemia s/p Cephalomedullary nailing of right hip intertrochanteric fracture on 01/12/19 1 unit PRBC transfused on 01/13/19 Monitor CBC (6) S/P aortic valve replacement: H/O mechanical aortic valve replacement Severe aortic 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 with an ascending aortic aneurysm status post May 2007 aortic valve replacement and ascending aorta repair with a #[address] [facility] composite graft with reimplantation of the epicardial coronary arteries, cardiac tamponade secondary to a large pericardial effusion status post emergent evacuation with redo sternotomy on 06/29/2007 On anticoagulation with Coumadin (7) residential current use of anticoagulant: on coumadin (8) Coronary artery disease: -Mild ASCVD by May 01, 2007 catheterization. 20-30% mid LAD stenosis, 20% diagonal stenosis, 30% LCX stenosis, and a 20-40% RCA stenosis with EF of 45% by LV gram -June 13, 2015 diagnostic cardiac catheterization at [facility] revealed mild nonobstructive coronary artery disease with normally functioning mechanical aortic valve. Specific angiography revealed an ectatic LM, 40% mid LAD lesion, 40% mid LCX stenosis, and a dominant RCA with 40% mid vessel stenosis. 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 Completed 6 weeks of IV Rocephin as of 07/21/2018. -Last echocardiogram 10/30/18 EF 60-65%, mod concentric LVH, mechanical valve noted, no vegetation (10) Chronic diastolic heart failure: -does not appear to be clinically fluid overloaded -Continue Beta shiv, imdur -Back on torsemide 40 mg daily -Monitor volume status (11) HTN (hypertension): -continue metoprolol, imdur -continue Terazosin for BPH (12) CKD (chronic kidney disease), stage III: Acute Kidney Injury on Chronic Kidney Disease stage III -baseline Creatinine between 1.9 to 2 Monitor renal function Avoid nephrotoxic agents as able Urinary retention Discontinue K[place]n Bladder scan PRN (13) T2DM (type 2 diabetes mellitus): 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 HbA1c 6.9 01/02/19 -Continue Lantus/NovoLog per protocol (14) History of CVA (cerebrovascular accident): -history of stroke in the past with mild residual Right sided weakness -continue Aspirin, Statin (15) Hypothyroidism: -TSH is 2.78 -continue levothyroxine (16) Hyperlipidemia: continue statin (17) DVT prophylaxis: On coumadin INR therapeutic Disposition: Needs Rehab placement Waiting for insurance Auth Subjective Patient is seen and examined at bedside Complains of right hip pain at surgical site--controlled Otherwise feels well today Denies any chest pain, shortness of breath, dizziness, nausea, abdominal pain Offers no other complaints Review of Systems Review of Systems: All systems reviewed & are unremarkable except as noted in HPI & below Physical Exam Physical Exam: Physical Exam: Vitals signs as noted above General Appearance:Obese, no apparent distress Head: normocephalic, Atraumatic Eyes: normal inspection, EOMI Neck: supple, Trachea midline Respiratory/Chest: Normal breath sounds, CTA Cardiovascular: S1, S2, No murmur Abdomen/GI:Soft, Non tender, Bowel sounds present Extremities/Musculoskelatal:normal inspection, chronic venous stasis changes, B/L LE edema, R hip: surgical site in dressing Neurologic/Psych:AAOX3, grossly no focal neurological deficits Skin: normal color, warm Results & Data Vital Signs (Past 12 Hours) Vital Signs Temp Pulse Pulse Resp BP Pulse Ox 01/17/19 15:07 36.9 C 83 17 123/73 95 01/17/19 06:57 36.7 C 83 16 116/73 95 Laboratory Results Short CBC 01/17/19 Range/Units 04:49 WBC 6.83 (4.8-10.8) K/uL Hgb 8.0 L (14.0-18.0) g/dL Hct 24.6 L (42-52) % Plt Count 141 (130-400) K/uL BMP 01/17/19 04:49 Sodium 139 Potassium 3.8 Chloride 107 Carbon Dioxide 27 BUN 55 H Creatinine 2.06 H Glucose 108 H Calcium 7.8 L Liver Function 01/17/19 Range/Units 04:49 Total Bilirubin 0.9 (0.2-1) mg/dl AST 21 (15-37) U/L ALT 13 (12-78) U/L Alkaline Phosphatase 85 (45-117) U/L Albumin 1.9 L (3.4-5.0) gm/dl (1) Fall Encounter type: initial encounter Qualified Code(s): W19.XXXA - Unspecified fall, initial encounter
[2019-01-17] MEDS: METOPROLOL SUCC 25MG EXT REL TAB PO SCH (20:26)
[2019-01-17] MEDS: TERAZOSIN HCL 1 MG CAP PO SCH (20:27)
[2019-01-17] MEDS: DOCUSATE SODIUM/SENNA 50/8.6MG TAB PO SCH (21:17)
[2019-01-18] MEDS: OXYCODONE HCL IR 5 MG TAB (IMMEDIATE RELEASE) PO PRN ×3 (01:21→16:38)
[2019-01-18] MEDS: LEVOTHYROXINE SODIUM 75 MCG TABLET PO SCH (05:54)
[2019-01-18 07:01] LABS: INR 2.5 (0.9-1.1); Prothrombin Time 23.8 Seconds (9.0-12.0)
[2019-01-18 07:16] LABS: BUN Creatinine Ratio 30.4 (10-20); Calcium 7.8 mg/dl (8.5-10.1); Creatinine Clr Calc Pharmacy 45.3 ml/min; Est GFR (African American) 39.3; Est GFR (Non-African American) 33.9; Potassium 3.6 mmol/L (3.5-5.1)
[2019-01-18 07:37] LABS: Hemoglobin 8.1 g/dL (14.0-18.0); Mean Corpuscular Hemoglobin 29.2 pg (25-34); Mean Corpuscular Hgb Conc 32.4 g/dL (32-36); Mean Corpuscular Volume 90.3 fL (80-100); Mean Platelet Volume 10.6 fL (7.4-10.4); Platelet Count 164 K/uL (130-400); RDW Coefficient of Variation 17.2 % (11.5-14.5); RDW Standard Deviation 57.4 fL (36.4-46.3); Red Blood Count 2.77 M/uL (4.7-6.1); White Blood Count 6.79 K/uL (4.8-10.8)
[2019-01-18] MEDS: FERROUS SULFATE 325 MG TAB PO SCH (08:38)
[2019-01-18] MEDS: ATORVASTATIN 40 MG TAB PO SCH (08:38)
[2019-01-18] MEDS: METOPROLOL SUCC 50MG EXT REL TAB PO SCH (08:38)
[2019-01-18] MEDS: ASPIRIN 81 MG ECTAB PO SCH (08:38)
[2019-01-18] MEDS: FOLIC ACID 1 MG TAB PO SCH (08:38)
[2019-01-18] MEDS: MULTIVITAMIN TAB PO SCH (08:38)
[2019-01-18] MEDS: ISOSORBIDE MONO EXTENDED REL 60 MG TABCR PO SCH (08:38)
[2019-01-18] MEDS: MoRPHine SULFATE 2 MG/ML CARP IV PRN (08:39)
[2019-01-18] MEDS: INSULIN ASPART 100 UNITS/ML 3 ML PEN SC SCH ×4 (08:39→22:06)
[2019-01-18] MEDS: TORSEMIDE 10 MG TAB PO SCH (08:39)
[2019-01-18] MEDS: INSULIN GLARGINE SOLOSTAR 100 UNITS/ML 3 ML PEN SC SCH ×2 (08:41→22:07)
--- NOTE | 2019-01-18 15:32 | Hospitalist Progress Note ---
Date of Service January 18, 2019 Assessment & Plan (1) Fall: Patient had a fall resulting in right hip fracture PT/OT Needs Rehab placement Waiting for insurance authorization (2) Laceration of finger of right hand: treated in the ED on initial presentation (3) Intertrochanteric fracture of right hip: Acute mildly displaced and angulated comminuted intertrochanteric fracture of the right femur s/p Cephalomedullary nailing of right hip intertrochanteric fracture on 01/12/19 Postop anemia S/P PRBCs Appreciate Orthopedics Input Needs follow up with Ortho upon discharge Continue pain control Bowel regimen for constipation Continue wound care PT/OT: Right lower extremity weightbearing as tolerated Plan to discharge to senior care facility (4) Chronic atrial fibrillation: H/O Mechanical aortic valve continue metoprolol Resume Coumadin today INR 3.2>>2.5 Target INR 2-3 (5) Anemia: Chronic anemia with Acute blood loss anemia s/p Cephalomedullary nailing of right hip intertrochanteric fracture on 01/12/19 1 unit PRBC transfused on 01/13/19 Monitor CBC (6) S/P aortic valve replacement: H/O mechanical aortic valve replacement Severe aortic 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 with an ascending aortic aneurysm status post May 2007 aortic valve replacement and ascending aorta repair with a #[address] 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 20-30% mid LAD stenosis, 20% diagonal stenosis, 30% LCX stenosis, and a 20-40% RCA stenosis with EF of 45% by LV gram -June 13, 2015 [facility] mild nonobstructive coronary artery disease with normally functioning mechanical aortic valve. Specific angiography revealed an ectatic LM, 40% mid LAD lesion, 40% mid LCX stenosis, and a dominant RCA with 40% mid vessel stenosis. 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 Completed 6 weeks of IV Rocephin as of 07/21/2018. -Last echocardiogram 10/30/18 EF 60-65%, mod concentric LVH, mechanical valve noted, no vegetation (10) Chronic diastolic heart failure: -does not appear to be clinically fluid overloaded -Continue Beta shiv, Imdur -Continue Torsemide 40 mg daily -Monitor volume status -Discussed with Cardiology today (11) HTN (hypertension): -continue metoprolol, imdur -continue Terazosin for BPH (12) CKD (chronic kidney disease), stage III: Acute Kidney Injury on Chronic Kidney Disease stage III -baseline Creatinine between 1.9 to 2 Monitor renal function Avoid nephrotoxic agents as able Urinary retention Resolved Bladder scan PRN (13) T2DM (type 2 diabetes mellitus): Type 2 diabetes mellitus with shelter current use of insulin HbA1c 6.9 01/02/19 -Continue Lantus/NovoLog per protocol (14) History of CVA (cerebrovascular accident): -history of stroke in the past with mild residual Right sided weakness -continue Aspirin, Statin (15) Hypothyroidism: -TSH is 2.78 -continue levothyroxine (16) Hyperlipidemia: continue statin (17) DVT prophylaxis: On coumadin INR therapeutic Disposition: Needs Rehab placement Waiting for insurance [facility] Case management on board Subjective Patient is seen and examined at bedside Reports constipation Right hip pain at surgical site is controlled Denies any chest pain, shortness of breath, dizziness, nausea, abdominal pain Offers no other complaints Discussed with patient's family today Waiting for Insurance [facility] for SNF placement Review of Systems Review of Systems: All systems reviewed & are unremarkable except as noted in HPI & below Physical Exam Physical Exam: Physical Exam: Vitals signs as noted above General Appearance:Obese, no apparent distress Head: normocephalic, Atraumatic Eyes: normal inspection, EOMI Neck: supple, Trachea midline Respiratory/Chest: Normal breath sounds, CTA Cardiovascular: S1, S2, No murmur Abdomen/GI:Soft, Non tender, Bowel sounds present Extremities/Musculoskelatal:normal inspection, chronic venous stasis changes, B/L LE edema, R hip: surgical site in dressing Neurologic/Psych:AAOX3, grossly no focal neurological deficits Skin: normal color, warm Results & Data Vital Signs (Past 12 Hours) Vital Signs Temp Pulse Resp BP Pulse Ox 01/18/19 15:06 36.7 C 88 17 109/73 93 01/18/19 11:30 36.6 C 94 H 18 109/67 94 01/18/19 07:53 36.7 C 81 14 119/73 93 Laboratory Results Short CBC 01/18/19 Range/Units 06:30 WBC 6.79 (4.8-10.8) K/uL Hgb 8.1 L (14.0-18.0) g/dL Hct 25.0 L (42-52) % Plt Count 164 (130-400) K/uL BMP 01/18/19 06:30 Sodium 139 Potassium 3.6 Chloride 106 Carbon Dioxide 27 BUN 57 H Creatinine 1.86 H Glucose 140 H Calcium 7.8 L (1) Fall Encounter type: initial encounter Qualified Code(s): W19.XXXA - Unspecified fall, initial encounter
[2019-01-18] MEDS: WARFARIN SOD 2.5 MG TAB PO SCH (16:39)
[2019-01-18] MEDS: TERAZOSIN HCL 1 MG CAP PO SCH (22:09)
[2019-01-18] MEDS: METOPROLOL SUCC 25MG EXT REL TAB PO SCH (22:11)
[2019-01-18] MEDS: DOCUSATE SODIUM/SENNA 50/8.6MG TAB PO SCH (22:17)
[2019-01-19] MEDS: LEVOTHYROXINE SODIUM 75 MCG TABLET PO SCH (06:09)
[2019-01-19 06:14] LABS: Basophils # (auto) 0.02 K/uL (0-0.2); Basophils % (auto) 0.2 %; Eosinophils # (auto) 0.24 K/uL (0-0.5); Eosinophils % (auto) 2.6 %; Hematocrit (blood only) 25.1 % (42-52); Hemoglobin 8.6 g/dL (14.0-18.0); Immature Granulocytes # (auto) 0.02 K/uL (0.00-0.02); Immature Granulocytes % (auto) 0.2 %; Lymphocytes # (auto) 1.14 K/uL (1.2-3.4); Lymphocytes % (auto) 12.3 %; Mean Corpuscular Hemoglobin 30.2 pg (25-34); Mean Corpuscular Hgb Conc 34.3 g/dL (32-36); Mean Corpuscular Volume 88.1 fL (80-100); Mean Platelet Volume 10.1 fL (7.4-10.4); Monocytes # (auto) 0.74 K/uL (0.11-0.59); Neutrophils # (auto) 7.08 K/uL (1.4-6.5); Neutrophils % (auto) 76.7 %; Platelet Count 201 K/uL (130-400); RDW Coefficient of Variation 16.9 % (11.5-14.5); RDW Standard Deviation 54.5 fL (36.4-46.3); Red Blood Count 2.85 M/uL (4.7-6.1); White Blood Count 9.24 K/uL (4.8-10.8)
[2019-01-19 06:22] LABS: INR 1.9 (0.9-1.1); Prothrombin Time 18.9 Seconds (9.0-12.0)
[2019-01-19 06:45] LABS: Creatinine Clr Calc Pharmacy 43.3 ml/min; Est GFR (African American) 37.1
[2019-01-19] MEDS: MULTIVITAMIN TAB PO SCH (09:01)
[2019-01-19] MEDS: METOPROLOL SUCC 50MG EXT REL TAB PO SCH (09:01)
[2019-01-19] MEDS: ATORVASTATIN 40 MG TAB PO SCH (09:01)
[2019-01-19] MEDS: ISOSORBIDE MONO EXTENDED REL 60 MG TABCR PO SCH (09:01)
[2019-01-19] MEDS: FERROUS SULFATE 325 MG TAB PO SCH (09:01)
[2019-01-19] MEDS: FOLIC ACID 1 MG TAB PO SCH (09:01)
[2019-01-19] MEDS: ASPIRIN 81 MG ECTAB PO SCH (09:02)
[2019-01-19] MEDS: TORSEMIDE 10 MG TAB PO SCH (09:02)
[2019-01-19] MEDS: INSULIN GLARGINE SOLOSTAR 100 UNITS/ML 3 ML PEN SC SCH (09:04)
[2019-01-19] MEDS: INSULIN ASPART 100 UNITS/ML 3 ML PEN SC SCH ×2 (09:04→13:14)
--- NOTE | 2019-01-19 14:24 | Hospitalist Progress Note ---
Date of Service January 19, 2019 Assessment & Plan (1) Fall: Patient had a fall resulting in right hip fracture PT/OT Plan to discharge SNF today (2) Laceration of finger of right hand: treated in the ED on initial presentation (3) Intertrochanteric fracture of right hip: Acute mildly displaced and angulated comminuted intertrochanteric fracture of the right femur s/p Cephalomedullary nailing of right hip intertrochanteric fracture on 01/12/19 Postop anemia S/P PRBCs Appreciate Orthopedics Input Needs follow up with Ortho upon discharge Continue pain control Bowel regimen for constipation Continue wound care PT/OT: Right lower extremity weightbearing as tolerated (4) Chronic atrial fibrillation: H/O Mechanical aortic valve continue metoprolol Continue Coumadin INR 3.2>>1.9 Target INR 2-3 (5) Anemia: Chronic anemia with Acute blood loss anemia s/p Cephalomedullary nailing of right hip intertrochanteric fracture on 01/12/19 1 unit PRBC transfused on 01/13/19 Monitor CBC Hb stable (6) S/P aortic valve replacement: H/O mechanical aortic valve replacement Severe aortic 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 with an ascending aortic aneurysm status post May 2007 aortic valve replacement and ascending aorta repair with a #[address] 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 20-30% mid LAD stenosis, 20% diagonal stenosis, 30% LCX stenosis, and a 20-40% RCA stenosis with EF of 45% by LV gram -June 13, 2015 diagnostic cardiac catheterization at [facility] revealed mild nonobstructive coronary artery disease with normally functioning mechanical aortic valve. Specific angiography revealed an ectatic LM, 40% mid LAD lesion, 40% mid LCX stenosis, and a dominant RCA with 40% mid vessel stenosis. 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 Completed 6 weeks of IV Rocephin as of 07/21/2018. -Last echocardiogram 8/5/19 EF 60-65%, mod concentric LVH, mechanical valve noted, no vegetation (10) Chronic diastolic heart failure: -does not appear to be clinically fluid overloaded -Continue Beta shiv, Imdur -Continue Torsemide 40 mg daily -Plan to discharge on home Torsemide dose -Monitor volume status -Appreciate Cardiology Input (11) HTN (hypertension): -continue metoprolol, imdur -continue Terazosin for BPH (12) CKD (chronic kidney disease), stage III: Acute Kidney Injury on Chronic Kidney Disease stage III -baseline Creatinine between 1.9 to 2 Monitor renal function Avoid nephrotoxic agents as able Urinary retention Resolved Bladder scan PRN (13) T2DM (type 2 diabetes mellitus): 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 HbA1c 6.9 01/02/19 -Continue Lantus/NovoLog per protocol (14) History of CVA (cerebrovascular accident): -history of stroke in the past with mild residual Right sided weakness -continue Aspirin, Statin (15) Hypothyroidism: -TSH is 2.78 -continue levothyroxine (16) Hyperlipidemia: continue statin (17) DVT prophylaxis: On coumadin Disposition: SNF placement Case management on board Subjective Patient is seen and examined at bedside No new complaints States feeling much better today Right hip pain is better Denies any chest pain, SOB, dizziness, nausea, abdominal pain Offers no other complaints Plan to be discharged to SNF today Review of Systems Review of Systems: All systems reviewed & are unremarkable except as noted in HPI & below Physical Exam Physical Exam: Physical Exam: Vitals signs as noted above General Appearance:Obese, no apparent distress Head: normocephalic, Atraumatic Eyes: normal inspection, EOMI Neck: supple, Trachea midline Respiratory/Chest: Normal breath sounds, CTA Cardiovascular: S1, S2, No murmur Abdomen/GI:Soft, Non tender, Bowel sounds present Extremities/Musculoskelatal:normal inspection, chronic venous stasis changes, B/L LE edema, R hip: surgical site in dressing Neurologic/Psych:AAOX3, grossly no focal neurological deficits Skin: normal color, warm Results & Data Vital Signs (Past 12 Hours) Vital Signs Temp Pulse Resp BP Pulse Ox 01/19/19 07:48 36.5 C 91 H 18 148/87 H 93 Laboratory Results Short CBC 01/19/19 Range/Units 05:55 WBC 9.24 (4.8-10.8) K/uL Hgb 8.6 L (14.0-18.0) g/dL Hct 25.1 L (42-52) % Plt Count 201 (130-400) K/uL [facility] 01/19/19 05:55 Creatinine 1.95 H (1) Fall Encounter type: initial encounter Qualified Code(s): W19.XXXA - Unspecified fall, initial encounter
--- NOTE | 2019-01-19 14:39 | Discharge Summary ---
Date of Service January 19, 2019 Admission HPI Per Admitting Provider This is a 78-year-old male who has significant past medical history of CAD, history of AVR, paroxysmal atrial fibrillation, long-term anticoagulation on warfarin, T2DM, HTN, HLD, hypothyroidism, PVD, anemia of chronic disease, morbid obesity, history of prosthetic valve endocarditis, ascending aortic aneurysm who presents to [facility] ED due to fall prior to arrival. Patient was in his scooter when he got up to ambulate with a cane into the bathroom. When he walked into the bathroom next thing he knew he was on the floor, and experiencing significant right leg and knee pain. He does not ex actly remember how the fall occurred. He is unsure if he had true syncope. He denies feeling lightheaded or dizzy prior to fall.He was unable to get up and summoned EMS. Currently he feels much improved after receiving IV morphine, but states before pain medication he was in excruciating right leg and knee pain. He denies any recent illness, fever, chills, sweats, lightheadedness, dizziness, recent syncope, chest pain shortness of breath, palpitations, emesis, abdominal pain, dysuria, increased urgency with urination, melena, hematochezia, diarrhea. He does feel slightly nauseous secondary to pain medications. He does have increased frequency with urination secondary to diuretic use. He denies any orthopnea or PND but does use a recliner to sleep. Complains of slight increased lower extremity swelling but no pain or redness. At home with his . He is mostly sedentary and motorized scooter, but will ambulate with cane to use bathroom. He has been compliant with his medications. Last dose of Coumadin was last evening. Admission Exam Per Admitting Provider Constitutional: WD/WN, elderly, M, obese, vitals as above, NAD, sitting up in bed, pleasant, conversing easily, drowsy due to narcotic Head: Normocephalic, Atraumatic Eyes: PERRL, conjunctivae normal, anicteric sclerae ENMT: external ear and nose normal, oropharynx normal but dry mucous membranes Neck: trachea midline, no thyromegaly normal visual inspection Respiratory: normal respiratory effort, lungs clear to auscultation, no wheeze, rales, rhonchi. Normal insp/exp effort, no accessory muscle use Cardiovascular: Irr/Irr, mechanical AV click noted throughout, b/l 1 pretibial edema noted with chronic venous stasis changes. B/L pedal pulse +1. Vessels: no JVD or carotid bruit Chest: normal inspection of chest, sternal scar noted Abdomen: normal bowel sounds, soft, nontender, no hepatosplenomegaly Musculoskeletal: no cyanosis or clubbing, RLE shortened and inverted. RLE proximal/lateral ecchymosis noted. RUE 3/5 strength, LUE/LLE 5/5 strength Skin: no rashes, warm and dry normal turgor , L 4th finger volar aspect distal to pulp laceration Neurologic: PERRL, EOMI, accommodation nl, no face palsy, no dysarthria CN's II-XI intact bilaterally and moves all extremities Psychiatric: A+Ox3, euthymic affect Lymphatic: no cervical or axillary lymphadenopathy : deferred Principal Diagnosis Fall; Intertrochanteric fracture of right hip; s/p right hip fracture repair on this admission, Chronic atrial fibrillation; history of aortic valve replacement and presence of mechanical aortic valve; Acute Kidney Injury on Chronic Kidney Disease stage III, Type 2 diabetes mellitus with termite treater current use of insulin, Chronic anemia with Acute blood loss anemia Discharge Data Allergies Allergy/AdvReac Type Severity Reaction Status Date / Time No Known Allergies Allergy Unverified 01/11/19 14:22 Consultations 01/11/19 15:06 ED Decision to Admit Stat 01/11/19 16:04 Consult Cardiology Routine Consult Orthopedic Surgery Routine 01/11/19 18:43 Consult Anesthesiology Routine Consult Case Management - Discharge Planning Routine 01/12/19 17:43 Consult Case Management - Discharge Planning Routine Procedures Performed Operation Date: 01/12/19 08:55 Actual Procedures p Cephalomedullary nailing of right hip intertrochenteric fracture(Right) - Nasir Cabrera MD CT head: No significant change compared to the prior study. Chronic small vessel ischemic change and old left MCA territory infarct. No acute intracranial abnormality. Right Femur X ray: 1. Acute mildly displaced and angulated comminuted intratrochanteric fracture of the right femur. 2. Moderate sized right knee joint effusion. CXR: Platelike atelectasis both lung bases. Otherwise negative study. Ordered Studies 01/11/19 13:13 CT head/brain wo con Stat 01/12/19 16:00 FL fluoroscopy <1hr Routine FL hip RT 2-3V Routine 01/14/19 11:14 CT head/brain wo con Stat Hospital Course (1) Fall: Patient had a fall resulting in right hip fracture PT/OT Plan to discharge SNF today (2) Laceration of finger of right hand: treated in the ED on initial presentation (3) Intertrochanteric fracture of right hip: Acute mildly displaced and angulated comminuted intertrochanteric fracture of the right femur s/p Cephalomedullary nailing of right hip intertrochanteric fracture on 01/12/19 Postop anemia S/P PRBCs Appreciate Orthopedics Input Needs follow up with Ortho upon discharge Continue pain control Bowel regimen for constipation Continue wound care PT/OT: Right lower extremity weightbearing as tolerated (4) Chronic atrial fibrillation: H/O Mechanical aortic valve continue metoprolol Continue Coumadin INR 3.2>>1.9 Target INR 2-3 (5) Anemia: Chronic anemia with Acute blood loss anemia s/p Cephalomedullary nailing of right hip intertrochanteric fracture on 01/12/19 1 unit PRBC transfused on 01/13/19 Monitor CBC Hb stable (6) S/P aortic valve replacement: H/O mechanical aortic valve replacement Severe aortic 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 with an ascending aortic aneurysm status post May 2007 aortic valve replacement and ascending aorta repair with a #[address] [facility] composite graft with reimplantation of the epicardial coronary arteries, cardiac tamponade secondary to a large pericardial effusion status post emergent evacuation with redo sternotomy on 06/29/2007 On anticoagulation with Coumadin (7) [facility] current use of anticoagulant: on coumadin (8) Coronary artery disease: -Mild ASCVD by May 01, 2007 catheterization. 20-30% mid LAD stenosis, 20% diagonal stenosis, 30% LCX stenosis, and a 20-40% RCA stenosis with EF of 45% by LV gram -June 13, 2015 diagnostic cardiac catheterization at [facility] revealed mild nonobstructive coronary artery disease with normally functioning mechanical aortic valve. Specific angiography revealed an ectatic LM, 40% mid LAD lesion, 40% mid LCX stenosis, and a dominant RCA with 40% mid vessel stenosis. 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 Completed 6 weeks of IV Rocephin as of 07/21/2018. -Last echocardiogram 10/30/18 EF 60-65%, mod concentric LVH, mechanical valve noted, no vegetation (10) Chronic diastolic heart failure: -does not appear to be clinically fluid overloaded -Continue Beta shiv, Imdur -Continue Torsemide 40 mg daily -Plan to discharge on home Torsemide dose -Monitor volume status -Appreciate Cardiology Input (11) HTN (hypertension): -continue metoprolol, imdur -continue Terazosin for BPH (12) CKD (chronic kidney disease), stage III: Acute Kidney Injury on Chronic Kidney Disease stage III -baseline Creatinine between 1.9 to 2 Monitor renal function Avoid nephrotoxic agents as able Urinary retention Resolved Bladder scan PRN (13) T2DM (type 2 diabetes mellitus): Type 2 diabetes mellitus with termite treater current use of insulin HbA1c 6.9 01/02/19 -Continue Lantus/NovoLog per protocol (14) History of CVA (cerebrovascular accident): -history of stroke in the past with mild residual Right sided weakness -continue Aspirin, Statin (15) Hypothyroidism: -TSH is 2.78 -continue levothyroxine (16) Hyperlipidemia: continue statin (17) DVT prophylaxis: On coumadin Disposition: SNF placement Case management on board Total Time Total Time Spent Total Time Spent (In Minutes): 38 minutes Total Time Includes: Examination of the Patient, Discharge Planning, Medication Reconciliation, Communication With Other Providers and Other Discharge Plan Discharge Items Patient Disposition: Transfer Shelter Fac Reason For Visit: FALL,R FEMUR FX Discharge Diagnosis: Fall; Intertrochanteric fracture of right hip; s/p right hip fracture repair on this admission, Chronic atrial fibrillation; history of aortic valve replacement and presence of mechanical aortic valve; Acute Kidney Injury on Chronic Kidney Disease stage III, Type 2 diabetes mellitus with termite treater current use of insulin, Chronic anemia with Acute blood loss anemia Activity: Per Instructions section Exercise/Sports: Gradually increase as tolerated Weightbearing: Right weightbearing Weightbearing Comment: as tolerated with walker or crutches Non-emergency contact: Primary Care Provider and Surgeon Call non-emergency contact if: you have any medication questions, your symptoms worsen, your pain is not controlled, your pain is worsening, your pain is unusual for you, your pain is concerning for you, your temperature is above 101.5, your wound has increased redness, your wound has increased drainage and your wound pain has increased Follow-up/Referrals: Alise Buck MD [Primary Care Provider] - Diet: Carb Consistent or DM2 and Heart Healthy Addtl Attending Provider Instructions: Follow-up with your primary care physician in 1 week after being discharged from rehab facility Follow-up your orthopedic surgeon in 1 to 2 weeks as advised Seek immediate medical attention if your symptoms reoccur or worsen Addtl Supervisor Insecticide Provider Instructions: [facility] DISCHARGE INSTRUCTIONS: HIP FRACTURE SELF CARE INSTRUCTIONS: A. You are to ambulate with a walker or crutches for approximately 6 weeks. B. You are WEIGHT BEARING TOLERATED on your operative lower extremity for at least 6 weeks. C. Wear low heeled shoes with non-slip soles D. Be sure that your floors are free of things that could trip you throw rugs, electrical cords, and small objects. Avoid wet and waxed floors, especially with crutches/walker/cane. E. Try to walk several times a day with rest periods between. F. You may shower 48 hours after surgery and get the incision area wet, but DO NOT soak or submerge incision area in water. (No baths, swimming pools, hot tubs) G. You may have a large, band-aid like dressing over your incision (Aquacel). This will remain on your incision for 7 days, and then can be removed. You CAN shower with this on. If incision is leaking through the dressing, please call the office . H. Do NOT apply soap or any ointment/lotions directly over incision. I. You may use ice as needed to operative site. SPECIAL CARE INSTRUCTIONS: VERY IMPORTANT TO READ AND REVIEW A. You may be at risk for phlebitis or blood clots. a. Wear surgical stockings (GALDINO hose) for 2 weeks after s urgery to improve circulation and reduce swelling. b. Resume your Coumadin as directed by your Primary Care Physician; They will coordinate your INR lab draws to follow your levels. B. There are a few signs you need to watch for after you are home. Call [facility] [place] at [phone] if you experience any of the following: a. If you have a temperature of 101 degrees or higher. b. Sudden increase in pain in your hip not relieved by rest or pain medication. c. Any fluid or drainage from the incision; redness of the incision. d. Shortness of breath or chest pain. C. Call your physician if: a. Temperature is greater than 101 degrees (F). b. Pain is not relieved by prescribed pain medications. c. Increase drainage or redness from incision. d. Unanswered questions or concerns. D. Pain Medication: a. You will be prescribed pain medication upon discharge that should last till your first post-operative appointment. b. If you experience nausea and/or skin rash, discontinue this medication and contact our office for an alternative medication. c. Caution- narcotic pain medication can cause constipation. FOLLOW UP VISIT: Please call [facility] [place] at [phone] to schedule a follow up appointment with Dr. Cabrera in 10-14 days from the date of your surgery date. Pending Studies at Discharge: No Stand-Alone Forms: [facility] Skilled Items Patient informed of condition?: Yes DNR: Yes Discharge Level of Care: Skilled Communicable Disease: No Discharge Prognosis: Stable Lines: None Urinary Catheter: No Medications and DC Order Prescriptions: New ergocalciferol (vitamin D2) [Vitamin D2] 50,000 unit Capsule 50,000 unit PO Warner@0900 Qty: 5 RF: 0 oxycodone 5 mg Tablet 5 mg PO Q4H PRN (Reason: pain) 3 Days Qty: 10 RF: 0 Continued atorvastatin 40 mg Tablet 40 mg PO QAM RF: 0 nitroglycerin 0.4 mg Tablet, Sublingual 0.4 mg Sublingual DIRECTED PRN (Reason: Chest Pain) RF: 0 docusate sodium 100 mg Capsule 100 mg PO AMHS RF: 0 folic acid 1 mg Tablet 1 mg PO QAM RF: 0 terazosin 2 mg Capsule 2 mg PO HS RF: 0 warfarin 2.5 mg tablet 2.5 mg PO PM RF: 0 spironolactone 25 mg tablet 12.5 mg PO QAM RF: 0 levothyroxine [Synthroid] 75 mcg tablet 75 mcg PO QAM RF: 0 ferrous sulfate 325 mg (65 mg iron) Tablet 325 mg PO QAM RF: 0 isosorbide mononitrate 60 mg Tablet Extended Release 24 Hr 60 mg PO QAM Qty: 0 RF: 0 Lantus Solostar U-100 Insulin 100 unit/mL (3 mL) insulin pen 24 units SQ AMHS RF: 0 metoprolol succinate 50 mg tablet extended release 24 hr 50 mg PO QAM RF: 0 metoprolol succinate [Toprol XL] 25 mg tablet extended release 24 hr 25 mg PO HS RF: 0 insulin lispro [Humalog KwikPen Insulin] 100 unit/mL insulin pen 10 unit subcut TID RF: 0 aspirin [Aspir-81] 81 mg Tablet,Delayed Release (Dr/Ec) 81 mg PO QAM RF: 0 torsemide 20 mg tablet 40 mg PO 3XWK RF: 0 torsemide 20 mg Tablet 60 mg PO 4XWK RF: 0 Discharge Orders: Discharge Order (Routine); Ordered 01/19/19 Ordered By: Dean Raman Admission Data Admit Date/Time: 01/11/19 16:19 Attending Provider: Dean Raman Admit Provider: Yeyo Cee Primary Care Provider: Alise Buck Other Providers: Israel Barton ; Yeyo Cee ; Miki Ballard Scott A ; Brian Stanford ; Hardy Murphy Other Interventions: Discharge Summary Assessment (RN) Last Done: 01/19/19 15:21 DC Date/Time DO NOT enter until pt leaves facility: 01/19/19 15:45
[2019-01-19] MEDS: WARFARIN SOD 2.5 MG TAB PO SCH (15:24)
[2019-01-21] MEDS ORDERED: ERGOCALCIFEROL 50,000 UNITS CAP PO SCH (07:30)
== END 2019-01-19 15:45 | DRG 481 ==
LOC: ED 12:34 → SUATTDRO 16:19 → 2S 16:19 → 3W 01-15 12:50

== ENCOUNTER 2019-06-10 15:46 | Inpatient (IN) ==
[2019-06-10] MEDS ORDERED: METOPROLOL SUCC 25MG EXT REL TAB PO STA (19:42)
[2019-06-10] MEDS ORDERED: ACETAMINOPHEN 325 MG TAB PO PRN (19:49)
[2019-06-10] MEDS ORDERED: bisacodyL 10 MG SUPP PR PRN (19:49)
[2019-06-10] MEDS ORDERED: NALOXONE HCL 0.4 MG/1 ML VIAL/CARP IV PRN (19:49)
[2019-06-10] MEDS ORDERED: MAGNESIUM HYDROXIDE SUSP 30 ML UDC PO PRN (19:49)
[2019-06-10] MEDS ORDERED: NITROGLYCERIN SL 0.4 MG/TAB TAB SL PRN (19:49)
[2019-06-10] MEDS ORDERED: GLUCAGON FOR INJ 1 MG VIAL SQ PRN (19:53)
[2019-06-10] MEDS ORDERED: DEXTROSE 50% 50 ML SYRINGE IV PRN (19:53)
[2019-06-10] MEDS ORDERED: GLUCOSE 10 TABS/TUBE PO PRN (19:53)
[2019-06-10] MEDS ORDERED: GLUCOSE 40% GEL 15 GM TUBE PO PRN (19:53)
[2019-06-10] MEDS ORDERED: CARBOHYDRATES FOR HYPOGLYCEMIA PO PRN (19:53)
[2019-06-10] MEDS ORDERED: HYDROmorphone INJ 0.5 MG/0.5 ML SYR IV PRN (20:04)
[2019-06-10] MEDS ORDERED: PROMETHAZINE HCL 12.5 MG in SODIUM CHLORIDE 0.9% 50 ML IV PRN (20:04)
[2019-06-10 21:43] LABS: Basophils # (auto) 0.05 K/uL (0-0.2); Basophils % (auto) 0.5 %; Eosinophils # (auto) 0.38 K/uL (0-0.5); Eosinophils % (auto) 3.9 %; Hematocrit (blood only) 36.6 % (42-52); Hemoglobin 11.6 g/dL (14.0-18.0); Immature Granulocytes # (auto) 0.03 K/uL (0.00-0.02); Immature Granulocytes % (auto) 0.3 %; Lymphocytes # (auto) 1.86 K/uL (1.2-3.4); Lymphocytes % (auto) 19.2 %; Mean Corpuscular Hemoglobin 28.4 pg (25-34); Mean Corpuscular Hgb Conc 31.7 g/dL (32-36); Mean Corpuscular Volume 89.5 fL (80-100); Monocytes # (auto) 0.71 K/uL (0.11-0.59); Monocytes % (auto) 7.3 %; Neutrophils # (auto) 6.64 K/uL (1.4-6.5); Neutrophils % (auto) 68.8 %; Platelet Count 141 K/uL (130-400); RDW Coefficient of Variation 17.1 % (11.5-14.5); RDW Standard Deviation 55.9 fL (36.4-46.3); Red Blood Count 4.09 M/uL (4.7-6.1); White Blood Count 9.67 K/uL (4.8-10.8)
[2019-06-10] MEDS: INSULIN ASPART 100 UNITS/ML 3 ML PEN SC SCH (21:50)
[2019-06-10 21:56] LABS: INR 1.9 (0.9-1.1); Partial Thromboplastin Ratio 1.2; Partial Thromboplastin Time 32.8 Seconds (21.0-31.0); Prothrombin Time 19.6 Seconds (9.0-12.0)
[2019-06-10] MEDS ORDERED: Heparin IV Low Dose *NO* Bolus IV STA (22:15)
[2019-06-10 22:57] LABS: BUN Creatinine Ratio 20.5 (10-20); Calcium 8.5 mg/dl (8.5-10.1); Creatinine Clr Calc Pharmacy 39.5 ml/min; Est GFR (African American) 34.9; Est GFR (Non-African American) 30.1; Potassium 3.6 mmol/L (3.5-5.1)
[2019-06-10] MEDS: HEPARIN SODIUM/DEXTROSE 25,000 UNITS/500 ML BAG IV SCH (23:22)
[2019-06-10] MEDS: TERAZOSIN HCL 1 MG CAP PO SCH (23:28)
[2019-06-11] MEDS ORDERED: LACTATED RINGER'S 1,000 ML IV SCH (00:30)
--- NOTE | 2019-06-11 03:27 | History & Physical Report ---
Date of Service June 10, 2019 Assessment & Plan (1) Atrial fibrillation with rapid ventricular response: Secondary to discomfort from new right hip fracture secondary to mechanical fall hx right hip fx surgery December 2018 hx AF/AI sp mechanical AVR on Coumadin, INR slightly subtherapeutic chronic diastolic heart failure (EF 60 to 65%, TTE 2019), patient euvolemic CAD/PVD/CVA as per records chronic left bundle branch block hypertension, slightly elevated hyperlipidemia on statin Rx COPD, past tobacco abuse, pulmonary status at baseline left upper lung nodule worrisome for malignancy, some enlargement noted on CT chest done at [place] upon review of recent outpatient CT chest on file DM2 insulin requiring, well-controlled as of recent hemoglobin A1c of 6.29 December 2018 CRI, creatinine at baseline chronic anemia secondary to CKD, hemoglobin at baseline Medical telemetry Facilitate home beta-shiv, may need titration Analgesia Orthopedics consult RE right hip fracture Cardiology consult RE preop eval (Patient Class IV risk for cardiac complications for potential orthopedic procedure as per RCRI.) Hold Coumadin in anticipation of surgery IV heparin for mechanical AVR thromboembolic prophylaxis while Coumadin on hold in light of subtherapeutic INR Outpatient Pulmonology consultation for left upper lung nodule if patient/family agreeable. Basal insulin adjusted for n.p.o. status after midnight, ISS BG goal [id number], update hemoglobin A1c PT OT eval DVT prophylaxis. IV heparin while Coumadin on hold while INR subtherapeutic Full code Patient requesting his daughter be updated of plan of care. Ms. Aleisha Hardenphart, contact #[phone]. Text document was generated using [employer] voice recognition software. It may contain grammatical or spelling errors. Kindly contact undersigned for clarification of any documentation item in question. History of Present Illness Chief Complaint: Right hip fracture Primary Care Provider: Alise Buck MD History obtained from patient and records. Medical history significant for chronic diastolic heart failure (EF 60 to 65%, TTE 2019), CAD/PVD/CVA as per records, chronic left bundle branch block, A. fib/mechanical AVR on Coumadin, aortic regurgitation with ascending aortic aneurysm status post mechanical AVR and ascending aorta repair (2007), hypertension, hyperlipidemia, COPD, past tobacco abuse, DM2 insulin requiring, CRI (baseline creatinine 2), history of prostatic valve endocarditis as per records, chronic anemia baseline hemoglobin 10-11. Recent confinement December 2018 for right hip fracture secondary to fall status post surgery. Patient discharged to SNF for rehab subsequently transitioning to home. This morning, patient had a fall at home landing on the right side. Subsequent worsening of postop right hip pain. Right-sided headache from head trauma. No chest pain, S OB, syncope, LOC. Patient brought to [facility] for evaluation. CT right hip showed recent nondisplaced right femoral great trochanteric fracture. Patient transferred to [facility] for Orthopedic services. Medical History as above CT chest 09/2018 [facility] Spiculated nodule left upper lobe measuring 1.3 x 1.4 cm, unchanged. Advise continued follow-up in 3-6 months. 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 Allergies Allergy/AdvReac Type Severity Reaction Status Date / Time No Known Allergies Allergy Unverified 01/11/19 14:22 Home Medications Home Medications Medication Instructions Recorded Confirmed Type atorvastatin 40 mg PO QAM 02/23/18 06/10/19 History docusate sodium 100 mg PO AMHS 02/23/18 06/10/19 History folic acid 1 mg PO QAM 02/23/18 06/10/19 History nitroglycerin 0.4 mg SUBLINGUAL DIRECTED PRN 02/23/18 06/10/19 History terazosin 2 mg PO HS 02/24/18 06/10/19 History Lantus Solostar U-100 Insulin 24 units SQ AMHS 07/10/18 06/10/19 History ferrous sulfate 325 mg PO QPM 10/25/18 06/10/19 History levothyroxine [Synthroid] 75 mcg PO QAM 10/25/18 06/10/19 History spironolactone 12.5 mg PO QAM 10/25/18 06/10/19 History warfarin 2.5 mg PO UD 10/25/18 06/10/19 History isosorbide mononitrate 60 mg PO QAM #0 tab 11/02/18 06/10/19 Rx insulin lispro [Humalog KwikPen 10 unit SUBCUT TIDM 12/06/18 06/10/19 History Insulin] metoprolol succinate 50 mg PO QAM 12/06/18 06/10/19 History metoprolol succinate [Toprol XL] 25 mg PO HS 12/06/18 06/10/19 History aspirin [Aspir-81] 81 mg PO QAM 01/11/19 06/10/19 History torsemide 20 - 40 mg PO DAILY 01/11/19 06/10/19 History cholecalciferol (vitamin D3) 25 mcg PO DAILY 06/10/19 06/10/19 History [Vitamin D3] Past Med/Surg History Medical History ASCVD (arteriosclerotic cardiovascular disease) (Chronic) Cerebrovascular disease (Chronic) Chronic atrial fibrillation (Chronic) Chronic diastolic heart failure (Chronic) Coronary artery disease (Chronic) Diabetes type 2, uncontrolled (Chronic) 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 History of endocarditis (Chronic) 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 weeks 05/2018 HTN (hypertension) (Chronic) Hyperlipidemia (Chronic) Hypothyroidism (Chronic) LBBB (left bundle branch block) (Chronic) jail current use of anticoagulant (Chronic) INR goal 2-3 PAF (paroxysmal atrial fibrillation) (Chronic) PVD (peripheral vascular disease) (Chronic) T2DM (type 2 diabetes mellitus) (Chronic) 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 (Chronic) Surgical History History of cardiac catheterization (Chronic) Nonobstructive CAD S/P aortic valve replacement (Chronic) Family History Other Coronary heart disease Social History Preferred Language: Zimbabwean Communication Ability: Effective Communication Ability Comment: stroke residual, difficulty writing Procurement Specialist Required: No Beliefs That Will Affect Care: None marital status: Current Living Situation: Spouse 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 Other Information That Helps Us Care for You: No Feels Safe at Home: Yes Safety Concerns: Feels Safe At This Time Smoking Status: Light tobacco smoker Tobacco Type: cigars ; Cigarettes Per Day: cigar 1 day; hx of 1ppd x 45 yrs cigarettes ; Do You Dip or Chew Tobacco: No ; Second Hand Exposure: No ; Tobacco Cessation Education Requested by Patient: No Hx Alcohol Use: No Hx Substance Use: No Review of Systems Review of Systems: As per HPI, all 10 systems reviewed, all other ROS negative Physical Exam Physical Exam: GENERAL: Comfortable, slightly hard of hearing, obese, no respiratory distress SKIN: Pallor , warm HEENT: Alopecia, ecchymosis right occipital parietal area, pale palpebral conjunctivae, no ptosis, moist buccal mucosa NECK : Supple, short neck, no tenderness CHEST : Decreased breath sounds , no tenderness HEART : Irregular, mechanical murmur ABDOMEN: Some distention, nontender EXTREMITIES : Bilateral LE swelling R> L, right hip tenderness, no other conspicuous deformities noted NEUROLOGIC : Coherent, mild hearing impairment, occasional dysarthria, right hemiparesis (chronic) Results & Data Vital Signs (Past 12 Hours) Vital Signs Temp Pulse Resp BP Pulse Ox 06/10/19 18:30 37.0 C 110 H 18 121/71 93 Laboratory Results Laboratory Results WBC 9.67 K/uL (4.8-10.8) 06/10/19 21:13 RBC 4.09 M/uL (4.7-6.1) L 06/10/19 21:13 Hgb 11.6 g/dL (14.0-18.0) L 06/10/19 21:13 Hct 36.6 % (42-52) L 06/10/19 21:13 MCV 89.5 fL (80-100) 06/10/19 21:13 MCH 28.4 pg (25-34) 06/10/19 21:13 MCHC 31.7 g/dL (32-36) L 06/10/19 21:13 RDW Std Deviation 55.9 fL (36.4-46.3) H 06/10/19 21:13 RDW Coeff of Elizabeth 17.1 % (11.5-14.5) H 06/10/19 21:13 Plt Count 141 K/uL (130-400) 06/10/19 21:13 MPV 11.0 fL (7.4-10.4) H 06/10/19 21:13 Immature Gran % (Auto) 0.3 % 06/10/19 21:13 Neut % (Auto) 68.8 % 06/10/19 21:13 Lymph % (Auto) 19.2 % 06/10/19 21:13 Early % (Auto) 7.3 % 06/10/19 21:13 Eos % (Auto) 3.9 % 06/10/19 21:13 Baso % (Auto) 0.5 % 06/10/19 21:13 Immature Gran # (Auto) 0.03 K/uL (0.00-0.02) H 06/10/19 21:13 Neut # (Auto) 6.64 K/uL (1.4-6.5) H 06/10/19 21:13 Lymph # (Auto) 1.86 K/uL (1.2-3.4) 06/10/19 21:13 Early # (Auto) 0.71 K/uL (0.11-0.59) H 06/10/19 21:13 Eos # (Auto) 0.38 K/uL (0-0.5) 06/10/19 21: Baso # (Auto) 0.05 K/uL (0-0.2) 06/10/19 21:13 PT 19.6 Seconds (9.0-12.0) H 06/10/19 21:13 INR 1.9 (0.9-1.1) H 06/10/19 21:13 APTT 32.8 Seconds (21.0-31.0) H 06/10/19 21: PTT Ratio 1.2 06/10/19 21:13 Sodium 143 mmol/L (136-145) 06/10/19 22:27 Potassium 3.6 mmol/L (3.5-5.1) 06/10/19 22:27 Chloride 109 mmol/L (98-107) H 06/10/19 22:27 Carbon Dioxide 28 mmol/L (21-32) 06/10/19 22:27 Anion Gap 5.0 (3-11) 06/10/19 22:27 BUN 42 mg/dl (7-18) H 06/10/19 22:27 Creatinine 2.05 mg/dl (0.6-1.4) H 06/10/19 22:27 Est Cr Clr Drug Dosing 39.5 ml/min 06/10/19 22:27 Est GFR ( Amer) 34.9 06/10/19 22:27 Est GFR (Non-Af Amer) 30.1 06/10/19 22:27 BUN/Creatinine Ratio 20.5 (10-20) H 06/10/19 22:27 Glucose 131 mg/dl (70-99) H 06/10/19 22:27 POC Glucose 81 mg/dl (70-99) 06/10/19 21:47 Calcium 8.5 mg/dl (8.5-10.1) 06/10/19 22:27 Magnesium 2.0 mg/dl (1.8-2.4) 06/10/19 21:13 Blood Type O Positive 06/10/19 21:13 Antibody Screen NEGATIVE 06/10/19 21:13 Diagnostic Findings (From [facility]) CT head: Large posterior left cerebral hemisphere old infarct, minimal right scalp contusion CT cervical spine: No fracture, degenerative changes, left apical lung nodule CT chest: No evidence of pulmonary emboli. 1.9 cm left apical nodule worrisome for lung cancer, ascending aortic aneurysm measuring 4.7 cm, prosthetic aortic valve, pronounced coronary artery calcification CT abdomen pelvis: Atrophic left kidney, diverticulosis, prostatic enlargement, 3.3 cm infrarenal aortic aneurysm, coronary artery calcification CT lumbar spine: No fracture, extensive degenerative changes, severe spinal stenosis at the lumbar levels, extensive bilateral neuroforaminal impingement CT right hip: Old intertrochanteric right femoral fracture with deformity and internal fixation; recent nondisplaced right femoral greater inter trochanteric fracture suspect Plain x-ray right knee: Osteoarthritis, moderate effusion, medial compartment loose bodies, soft tissue swelling Plain x-ray right ankle: Marked soft tissue swelling EKG as per my interpretation:Rate 90, A. fib, LAD, LAFB, LBBB
[2019-06-11] MEDS: LEVOTHYROXINE SODIUM 75 MCG TABLET PO SCH (05:58)
[2019-06-11 06:18] LABS: Basophils # (auto) 0.05 K/uL (0-0.2); Basophils % (auto) 0.7 %; Eosinophils % (auto) 5.7 %; Hematocrit (blood only) 35.2 % (42-52); Hemoglobin 11.2 g/dL (14.0-18.0); Immature Granulocytes # (auto) 0.01 K/uL (0.00-0.02); Immature Granulocytes % (auto) 0.1 %; Lymphocytes # (auto) 1.63 K/uL (1.2-3.4); Lymphocytes % (auto) 23.4 %; Mean Corpuscular Hemoglobin 28.6 pg (25-34); Mean Corpuscular Hgb Conc 31.8 g/dL (32-36); Mean Platelet Volume 11.2 fL (7.4-10.4); Monocytes # (auto) 0.54 K/uL (0.11-0.59); Monocytes % (auto) 7.7 %; Neutrophils # (auto) 4.34 K/uL (1.4-6.5); Neutrophils % (auto) 62.4 %; Platelet Count 124 K/uL (130-400); RDW Coefficient of Variation 17.2 % (11.5-14.5); RDW Standard Deviation 56.8 fL (36.4-46.3); Red Blood Count 3.91 M/uL (4.7-6.1); White Blood Count 6.97 K/uL (4.8-10.8)
[2019-06-11 06:18] LABS: Estimated Average Glucose 140 mg/dl; Hemoglobin A1C 6.5 % (4.5-5.6)
[2019-06-11 06:34] LABS: INR 1.9 (0.9-1.1); Partial Thromboplastin Ratio 1.3; Partial Thromboplastin Time 37.6 Seconds (21.0-31.0); Prothrombin Time 19.7 Seconds (9.0-12.0)
[2019-06-11 06:53] LABS: BUN Creatinine Ratio 20.1 (10-20); Calcium 8.4 mg/dl (8.5-10.1); Creatinine Clr Calc Pharmacy 41.2 ml/min; Est GFR (African American) 36.4; Est GFR (Non-African American) 31.4; Potassium 3.7 mmol/L (3.5-5.1)
[2019-06-11] MEDS ORDERED: HEPARIN IV BOLUS 4,500 UNITS in SYRINGE 0 ML IV SCH (07:00)
[2019-06-11] MEDS: INSULIN ASPART 100 UNITS/ML 3 ML PEN SC SCH ×4 (08:10→20:30)
[2019-06-11] MEDS: FOLIC ACID 1 MG TAB PO SCH (08:12)
[2019-06-11] MEDS: DOCUSATE SODIUM 100 MG CAP PO SCH ×2 (08:12→20:25)
[2019-06-11] MEDS: ISOSORBIDE MONO EXTENDED REL 60 MG TABCR PO SCH (08:12)
[2019-06-11] MEDS: ATORVASTATIN 40 MG TAB PO SCH (08:13)
[2019-06-11] MEDS: ASPIRIN 81 MG ECTAB PO SCH (08:13)
[2019-06-11] MEDS: OXYCODONE HCL IR 5 MG TAB (IMMEDIATE RELEASE) PO PRN (08:22)
[2019-06-11] MEDS ORDERED: INSULIN GLARGINE SOLOSTAR 100 UNITS/ML 3 ML PEN SC SCH (09:00)
[2019-06-11] MEDS ORDERED: METOPROLOL SUCC 50MG EXT REL TAB PO SCH (09:00)
[2019-06-11] MEDS ORDERED: MICONAZOLE NITRATE POWDER 43 GM EXT PRN (10:24)
--- NOTE | 2019-06-11 10:48 | Cardiology Consultation ---
Date of Consultation June 11, 2019 Assessment & Plan (1) Preop cardiovascular exam: (2) Chronic atrial fibrillation: (3) S/P aortic valve replacement: (4) LBBB (left bundle branch block): (5) Intertrochanteric fracture of right hip: Complex 78-year-old patient presents to the ER with a mechanical fall and right-sided trochanteric fracture. Patient considered moderate perioperative risk for cardiovascular complications. Hold Coumadin. Continue IV heparin infusion. Heparin may be discontinued 2 hours prior to surgical procedure. Recommend restarting heparin as soon as bleeding risk is deemed acceptable by the operating surgeon postoperatively. Restart warfarin postoperatively for goal INR of 2.0-3.0. Other cardiovascular medications will be continued as previously ordered. Continue telemetry monitoring. All questions answered to patient satisfaction. Thank you for allowing me to participate in the care of your patient. History of Present Illness Reason for Consultation: Preoperative cardiovascular evaluation Hip fracture Mechanical aortic valve replacement Requesting Physician: Dr. Pate Attending Physician: Amee Pate MD History of Present Illness 78-year-old patient presents to the emergency department after a mechanical fal l. CT of the right hip shows a nondisplaced femoral great trochanteric fracture. He was transferred from [place] emergency department to [facility] for orthopedic services. Currently resting comfortably. Notes discomfort of his right hip. He also struck the right side of his head. Per review of records, no evidence of intracranial bleed. Ambulates with use of a walker also utilizing a motorized scooter. Denies syncope or near syncope. No recent exertional chest pain or unusual shortness of breath. Functional capacity is limited, however, stable. Denies orthopnea, PND, weight gain, palpitations, or claudication. Reports worsening right lower extremity edema. Utilizing Lasix chronically. Complex cardiovascular issues listed below. History 1. Severe aortic 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 with an ascending aortic aneurysm status post May 2007 aortic valve replacement and ascending aorta repair with a #[address] [facility] composite graft with reimplantation of the epicardial coronary arteries, cardiac tamponade secondary to a large pericardial effusion status post emergent evacuation with redo sternotomy on 06/29/2007 2. Mild ASCVD by May 01, 2007 catheterization. 20-30% mid LAD stenosis, 20% diagonal stenosis, 30% LCX stenosis, and a 20-40% RCA stenosis with EF of 45% by LV gram 3. June 13, 2015 diagnostic cardiac catheterization at [facility] revealed mild nonobstructive coronary artery disease with normally functioning mechanical aortic valve. Specific angiography revealed an ectatic LM, 40% mid LAD lesion, 40% mid LCX stenosis, and a dominant RCA with 40% mid vessel stenosis. 4. [address] [facility] in May 2018 with Group B strep prosthetic mitral valve endocarditis. Completed 6 weeks of IV Rocephin as of 07/21/2018. Vegetation resolved per repeat [place] 10/2018. 5. Chronic diastolic congestive heart failure 6. History of iron deficiency. 7. 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 8. Paroxysmal atrial fibrillation 9. 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 Mild carotid occlusive disease 11. Hypertension 12. Dyslipidemia 13. Type II diabetes mellitus 14. Chronic renal 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 15. COPD with past tobacco abuse 16. Hypothyroidism 17. Obesity Allergies Allergy/AdvReac Type Severity Reaction Status Date / Time No Known Allergies Allergy Unverified 01/11/19 14:22 Home Medications Home Medications Medication Instructions Recorded Confirmed Type atorvastatin 40 mg PO QAM 02/23/18 06/10/19 History docusate sodium 100 mg PO AMHS 02/23/18 06/10/19 History folic acid 1 mg PO QAM 02/23/18 06/10/19 History nitroglycerin 0.4 mg SUBLINGUAL DIRECTED PRN 02/23/18 06/10/19 History terazosin 2 mg PO HS 02/24/18 06/10/19 History Lantus Solostar U-100 Insulin 24 units SQ AMHS 07/10/18 06/10/19 History ferrous sulfate 325 mg PO QPM 10/25/18 06/10/19 History levothyroxine [Synthroid] 75 mcg PO QAM 10/25/18 06/10/19 History spironolactone 12.5 mg PO QAM 10/25/18 06/10/19 History warfarin 2.5 mg PO UD 10/25/18 06/10/19 History isosorbide mononitrate 60 mg PO QAM #0 tab 11/02/18 06/10/19 Rx insulin lispro [Humalog KwikPen 10 unit SUBCUT TIDM 12/06/18 06/10/19 History Insulin] metoprolol succinate 50 mg PO QAM 12/06/18 06/10/19 History metoprolol succinate [Toprol XL] 25 mg PO HS 12/06/18 06/10/19 History aspirin [Aspir-81] 81 mg PO QAM 01/11/19 06/10/19 History torsemide 20 - 40 mg PO DAILY 01/11/19 06/10/19 History cholecalciferol (vitamin D3) 25 mcg PO DAILY 06/10/19 06/10/19 History [Vitamin D3] Patient History Medical History ASCVD (arteriosclerotic cardiovascular disease) (Chronic) Cerebrovascular disease (Chronic) Chronic atrial fibrillation (Chronic) Chronic diastolic heart failure (Chronic) Coronary artery disease (Chronic) Diabetes type 2, uncontrolled (Chronic) 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 History of endocarditis (Chronic) 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 weeks 05/2018 HTN (hypertension) (Chronic) Hyperlipidemia (Chronic) Hypothyroidism (Chronic) LBBB (left bundle branch block) (Chronic) 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 (Chronic) INR goal 2-3 PAF (paroxysmal atrial fibrillation) (Chronic) PVD (peripheral vascular disease) (Chronic) T2DM (type 2 diabetes mellitus) (Chronic) 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 (Chronic) Surgical History History of cardiac catheterization (Chronic) Nonobstructive CAD S/P aortic valve replacement (Chronic) Family History Other Coronary heart disease Social History Preferred Language: Kyrgyz Communication Ability: Effective Communication Ability Comment: stroke residual, difficulty writing 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 Beliefs That Will Affect Care: None marital status: Current Living Situation: Spouse Current Living Situation Comment: 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 a 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 Other Information That Helps Us Care for You: No Feels Safe at Home: Yes Safety Concerns: Feels Safe At This Time Smoking Status: Light tobacco smoker Tobacco Type: cigars ; Cigarettes Per Day: cigar 1 day; hx of 1ppd x 45 yrs cigarettes ; Do You Dip or Chew Tobacco: No ; Second Hand Exposure: No ; Tobacco Cessation Education Requested by Patient: No Hx Alcohol Use: No Hx Substance Use: No Review of Systems Review of Systems: All systems reviewed & are unremarkable except as noted in HPI & below Physical Exam Constitutional: well developed and + morbidly obese; no acute distress Respiratory: normal respiratory effort, lungs clear to auscultation Au scultation: no crackles, no rales, no rhonchi and no wheezes Cardiovascular: Rate/Rhythm: + irregularly irregular Heart Sounds: normal S1, normal S2 and + murmur (2/6 systolic ejection murmur, crisp A2 click appreciated) Palpation: normal PMI Vessels: no JVD and no carotid bruit Extremities: + edema (1+ bilateral lower extremity edema with stasis changes, R > L) Gastrointestinal (Abdomen): Inspection/Auscultation: normal bowel sounds; abdomen not distended Percussion/Palpation: abdomen soft; abdomen nontender, no guarding and abdomen not rigid Skin: no rashes and no ulcers Trauma: + contusion (Right-sided temporal region) Neurologic: + does not move all extremities (Right-sided hemiparesis) Psychiatric: A+Ox3, euthymic affect Results & Data ([facility]) Vital Signs (Past 12 Hours) Vital Signs Temp Pulse Resp BP Pulse Ox 06/11/19 07:03 36.5 C 77 22 159/97 H 92 06/11/19 03:37 36.8 C 78 19 147/91 H 92 06/10/19 22:59 36.7 C 89 22 147/81 H 92
[2019-06-11 13:58] LABS: Partial Thromboplastin Time 57.1 Seconds (21.0-31.0)
--- NOTE | 2019-06-11 14:02 | Hospitalist Progress Note ---
Date of Service June 11, 2019 Assessment & Plan (1) Intertrochanteric fracture of right hip: Was transferred from [facility] for fall that led to possible non displaced fx CT hip showed nondisplaced right femoral greater trochanteric fracture is suspected Ortho on board waiting for input Cardiology on board for surgical clearance Moderate perioperative risk for cardiovascular complications as per cardio Continue IV heparin drip for now, can be hold 2 hr before procedure Continue pain contro NPO for now Fall precaution Chronic Afib Rate controlled Continue metoprolol and Isosorbide mononitrate Coumadin on hold for possible surgical intervention Continue heparin drip for now S/P aortic valve replacement: H/O mechanical aortic valve replacement Severe aortic 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 with an ascending aortic aneurysm status post May 2007 aortic valve replacement and ascending aorta repair with a #[address] [facility] composite graft with reimplantation of the epicardial coronary arteries, cardiac tamponade secondary to a large pericardial effusion status post emergent evacuation with redo sternotomy on 06/29/2007 Coumadin has been on hold for possible surgery, INR 1.9 Continue IVheparin drip for now Coronary artery disease: Mild ASCVD by May 01, 2007 catheterization. 20-30% mid LAD stenosis, 20% diagonal stenosis, 30% LCX stenosis, and a 20-40% RCA stenosis with EF of 45% by LV gram -June 13, 2015 diagnostic cardiac catheterization at [facility] revealed mild nonobstructive coronary artery disease with normally functioning mechanical aortic valve. Specific angiography revealed an ectatic LM, 40% mid LAD lesion, 40% mid LCX stenosis, and a dominant RCA with 40% mid vessel stenosis. continue aspirin, statin, Metoprolol, Imdur Chronic diastolic heart failure: No signs of fluid overload Continue Beta shiv, Imdur On Torsemide 40 mg daily outpatient Monitor volume status HTN (hypertension): continue metoprolol, imdur Continue Terazosin and Torsemide CKD (chronic kidney disease), stage III baseline Creatinine between 1.9 to 2 Creatinine stable at 1.9 today Avoid nephrotoxic agents as able T2DM (type 2 diabetes mellitus): HbA1c 6.5 0n 06/11/19 Continue Lantus/NovoLog per protocol (History of CVA (cerebrovascular accident): History of stroke in the past with mild residual Right sided weakness Continue Aspirin, Statin Hypothyroidism: Continue Levothyroxine DVT px on heparin drip CODE STATUS FULL CODE Admission and Anticipated Discharge Date Admission Date: June 10, 2019 Subjective Pt was seen and examined Lying in bed with no distress Pt said that he is ok as long as he does not move He said that otherwise he feels good Denies any chest pain, palpitation, dizziness and SOB Physical Exam Physical Exam: General- No acute distress Head- bruises in R temporoparietal area junction Eyes- PERRL, EOMI, ENT- oropharynx clear Neck- supple, no JVD Lungs- clear to auscultation Heart- irregular rhythm; + murmur Abdomen- normal bowel sounds, soft, nontender Extremities- no calf tenderness, +edema Neuro- alert, oriented x 3; PERRL, EOMI; no facial palsy; no dysarthria Skin- warm & dry Results & Data ([facility]) Vital Signs (Past 12 Hours) Vital Signs Temp Pulse Resp BP Pulse Ox 06/11/19 07:03 36.5 C 77 22 159/97 H 92 06/11/19 03:37 36.8 C 78 19 147/91 H 92
[2019-06-11] MEDS: FERROUS SULFATE 325 MG TAB PO SCH (16:19)
--- NOTE | 2019-06-11 18:52 | Orthopedic Consultation ---
Date of Consultation June 11, 2019 Assessment & Plan (1) Intertrochanteric fracture of right hip: Old intertrochanteric fracture fixed with a trochanteric femoral nail. Questionable nondisplaced greater trochanteric fracture or this could possibly be chronically nonunited area of greater trochanter with previous displacement at time of original surgery. Possibly could be nondisplaced fracture. Either way treatment is nonsurgical. Patient be weightbearing as tolerated with a walker to tolerance and recommend physical therapy and rehab. He can follow-up with Dr. Cabrera as an outpatient. History of Present Illness Reason for Consultation: Questionable right hip fracture right hip pain. History of ORIF displaced intertrochanteric hip fracture with trochanteric femoral nail in late [address] Cabrera. Patient transferred here for definitive treatment. Had multiple tests done due to fall. Patient said he has some pain is not severe. Attending Physician: Amee Pate MD Allergies Allergy/AdvReac Type Severity Reaction Status Date / Time No Known Allergies Allergy Unverified 01/11/19 14:22 Home Medications Home Medications Medication Instructions Recorded Confirmed Type atorvastatin 40 mg PO QAM 02/23/18 06/10/19 History docusate sodium 100 mg PO AMHS 02/23/18 06/10/19 History folic acid 1 mg PO QAM 02/23/18 06/10/19 History nitroglycerin 0.4 mg SUBLINGUAL DIRECTED PRN 02/23/18 06/10/19 History terazosin 2 mg PO HS 02/24/18 06/10/19 History Lantus Solostar U-100 Insulin 24 units SQ AMHS 07/10/18 06/10/19 History ferrous sulfate 325 mg PO QPM 10/25/18 06/10/19 History levothyroxine [Synthroid] 75 mcg PO QAM 10/25/18 06/10/19 History spironolactone 12.5 mg PO QAM 10/25/18 06/10/19 History warfarin 2.5 mg PO UD 10/25/18 06/10/19 History isosorbide mononitrate 60 mg PO QAM #0 tab 11/02/18 06/10/19 Rx insulin lispro [Humalog KwikPen 10 unit SUBCUT TIDM 12/06/18 06/10/19 History Insulin] metoprolol succinate 50 mg PO QAM 12/06/18 06/10/19 History metoprolol succinate [Toprol XL] 25 mg PO HS 12/06/18 06/10/19 History aspirin [Aspir-81] 81 mg PO QAM 01/11/19 06/10/19 History torsemide 20 - 40 mg PO DAILY 01/11/19 06/10/19 History cholecalciferol (vitamin D3) 25 mcg PO DAILY 06/10/19 06/10/19 History [Vitamin D3] Patient History Medical History ASCVD (arteriosclerotic cardiovascular disease) (Chronic) Cerebrovascular disease (Chronic) Chronic atrial fibrillation (Chronic) Chronic diastolic heart failure (Chronic) Coronary artery disease (Chronic) Diabetes type 2, uncontrolled (Chronic) 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 History of endocarditis (Chronic) 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 weeks 05/2018 HTN (hypertension) (Chronic) Hyperlipidemia (Chronic) Hypothyroidism (Chronic) LBBB (left bundle branch block) (Chronic) 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) INR goal 2-3 PAF (paroxysmal atrial fibrillation) (Chronic) PVD (peripheral vascular disease) (Chronic) T2DM (type 2 diabetes mellitus) (Chronic) 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 (Chronic) Surgical History History of cardiac catheterization (Chronic) Nonobstructive CAD S/P aortic valve replacement (Chronic) Family History Other Coronary heart disease Social History Preferred Language: Malay Communication Ability: Effective Communication Ability Comment: stroke residual, difficulty writing Mycologist Required: No Beliefs That Will Affect Care: None marital status: Current Living Situation: Spouse Current 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 Patient was on anticoagulation that is being held temporarily. Physical Exam Physical Exam: Edematous right leg incision healed and benign right hip foot ankle all edematous. Range of motion of the knee not overly painful. Range of motion of the hip mild pain only. Results & Data ([facility]) Vital Signs (Past 12 Hours) Vital Signs Temp Pulse Pulse Resp BP Pulse Ox 06/11/19 16:11 173/102 H 06/11/19 15:49 36.8 C 84 20 169/110 H 92 06/11/19 15:35 80 06/11/19 07:03 36.5 C 77 22 159/[address] scan reviewed x-ray right hip. Reviewed old x-rays from prior surgery. Original fracture was fixed with some displacement and a greater trochanter area which may be giving the effect of possible nondisplaced greater trochanter fracture. There is a lot of calcification and callus and healing noted since prior internal fixation with a trochanteric nail. Does not appear to be any change in alignment of the trochanteric nail.
[2019-06-11] MEDS ORDERED: POTASSIUM CHLORIDE 20 MEQ TABCR PO STA (19:33)
[2019-06-11] MEDS ORDERED: WARFARIN SOD 5 MG TAB PO ONE (19:34)
[2019-06-11] MEDS ORDERED: MAGNESIUM SULFATE / D5W 1 GM/100 ML BAG IV ONE (20:00)
[2019-06-11] MEDS: TERAZOSIN HCL 1 MG CAP PO SCH (20:23)
[2019-06-11] MEDS: METOPROLOL SUCC 50MG EXT REL TAB PO SCH (20:25)
[2019-06-11] MEDS: INSULIN GLARGINE SOLOSTAR 100 UNITS/ML 3 ML PEN SC SCH (20:32)
[2019-06-11] MEDS ORDERED: METOPROLOL SUCC 25MG EXT REL TAB PO SCH (21:00)
[2019-06-11] MEDS ORDERED: TERAZOSIN HCL 1 MG CAP PO SCH (21:00)
[2019-06-11] MEDS: HEPARIN SODIUM/DEXTROSE 25,000 UNITS/500 ML BAG IV SCH (23:01)
[2019-06-12] MEDS: LEVOTHYROXINE SODIUM 75 MCG TABLET PO SCH (06:03)
[2019-06-12] MEDS: METOPROLOL SUCC 50MG EXT REL TAB PO SCH ×2 (07:56→20:38)
[2019-06-12] MEDS: ISOSORBIDE MONO EXTENDED REL 60 MG TABCR PO SCH (07:56)
[2019-06-12] MEDS: DOCUSATE SODIUM 100 MG CAP PO SCH ×2 (07:57→20:35)
[2019-06-12] MEDS: ATORVASTATIN 40 MG TAB PO SCH (07:57)
[2019-06-12] MEDS: ASPIRIN 81 MG ECTAB PO SCH (07:57)
[2019-06-12] MEDS: FOLIC ACID 1 MG TAB PO SCH (07:57)
[2019-06-12] MEDS: INSULIN GLARGINE SOLOSTAR 100 UNITS/ML 3 ML PEN SC SCH ×2 (07:58→20:35)
[2019-06-12] MEDS: INSULIN ASPART 100 UNITS/ML 3 ML PEN SC SCH ×4 (07:59→20:36)
[2019-06-12 08:59] LABS: Basophils # (auto) 0.04 K/uL (0-0.2); Basophils % (auto) 0.6 %; Eosinophils # (auto) 0.37 K/uL (0-0.5); Eosinophils % (auto) 5.3 %; Hematocrit (blood only) 35.5 % (42-52); Hemoglobin 11.1 g/dL (14.0-18.0); Immature Granulocytes # (auto) 0.02 K/uL (0.00-0.02); Immature Granulocytes % (auto) 0.3 %; Lymphocytes # (auto) 1.06 K/uL (1.2-3.4); Lymphocytes % (auto) 15.3 %; Mean Corpuscular Hemoglobin 28.1 pg (25-34); Mean Corpuscular Hgb Conc 31.3 g/dL (32-36); Mean Corpuscular Volume 89.9 fL (80-100); Mean Platelet Volume 11.1 fL (7.4-10.4); Monocytes # (auto) 0.45 K/uL (0.11-0.59); Monocytes % (auto) 6.5 %; Neutrophils # (auto) 4.99 K/uL (1.4-6.5); Platelet Count 125 K/uL (130-400); RDW Standard Deviation 55.9 fL (36.4-46.3); Red Blood Count 3.95 M/uL (4.7-6.1); White Blood Count 6.93 K/uL (4.8-10.8)
[2019-06-12 09:22] LABS: INR 2.2 (0.9-1.1); Partial Thromboplastin Ratio 1.8; Prothrombin Time 22.4 Seconds (9.0-12.0)
[2019-06-12 09:23] LABS: Partial Thromboplastin Time 49.9 Seconds (21.0-31.0)
[2019-06-12 09:25] LABS: BUN Creatinine Ratio 17.8 (10-20); Calcium 8.3 mg/dl (8.5-10.1); Creatinine Clr Calc Pharmacy 41.8 ml/min; Est GFR (African American) 37.1; Magnesium 2.2 mg/dl (1.8-2.4); Potassium 4.2 mmol/L (3.5-5.1)
--- NOTE | 2019-06-12 11:18 | Cardiology Progress Note ---
Date of Service June 12, 2019 Assessment & Plan (1) Preop cardiovascular exam: (2) Chronic atrial fibrillation: (3) S/P aortic valve replacement: (4) LBBB (left bundle branch block): (5) Intertrochanteric fracture of right hip: Conservative management of right hip recommended per orthopedic surgery. No surgical procedures are planned at this time. INR is therapeutic. Continue Coumadin. Discontinue heparin. Goal INR is 2.0- 3.0. Continue other cardiovascular medications as previously ordered. Restart diuretic therapy, torsemide 20 mg daily alternating with 40 mg. Subjective Patient seen and examined the bedside. Denies chest pain or unusual shortness of breath. Heart rate controlled on telemetry. Lower extremity edema improved. Diuretic therapy on hold since admission. Renal function at baseline with creatinine of 2.0 -2.2. Hip pain controlled. No signs/symptoms of GI blood loss. Patient offers no other concerns/complaints this time. Review of Systems Review of Systems: All systems reviewed & are unremarkable except as noted in HPI & below Physical Exam Constitutional: well developed and + morbidly obese; no acute distress Respiratory: normal respiratory effort, lungs clear to auscultation Auscultation: no crackles, no rales, no rhonchi and no wheezes Cardiovascular: Rate/Rhythm: + irregularly irregular Heart Sounds: normal S1, normal S2 and + murmur (2/6 systolic ejection murmur, crisp A2 click appreciated) Palpation: normal PMI Vessels: no JVD and no carotid bruit Extremities: + edema (1+ bilateral lower extremity edema with stasis changes, R > L) Gastrointestinal (Abdomen): Inspection/Auscultation: normal bowel sounds; abdomen not distended Percussion/Palpation: abdomen soft; abdomen nontender, no guarding and abdomen not rigid Skin: no rashes and no ulcers Trauma: + contusion (Right-sided temporal region) Neurologic: + does not move all extremities (Right-sided hemiparesis) Psychiatric: A+Ox3, euthymic affect Results & Data Vital Signs (Past 12 Hours) Vital Signs Temp Pulse Pulse Resp BP Pulse Ox Pulse Ox 06/12/19 07:05 36.7 C 87 18 161/91 H 93 06/12/19 03:52 36.7 C 74 18 159/92 H 90 06/12/19 00:00 90 06/11/19 23:31 36.9 C 89 18 155/92 H 90 06/11/19 23:17 73
[2019-06-12] MEDS: TORSEMIDE 10 MG TAB PO SCH (12:37)
[2019-06-12] MEDS ORDERED: WARFARIN SOD 2.5 MG TAB PO SCH (16:00)
[2019-06-12] MEDS: FERROUS SULFATE 325 MG TAB PO SCH (16:57)
--- NOTE | 2019-06-12 18:52 | Hospitalist Progress Note ---
Date of Service June 12, 2019 Assessment & Plan (1) Intertrochanteric fracture of right hip: Was transferred from [facility] for fall that led to possible non displaced fx CT hip showed nondisplaced right femoral greater trochanteric fracture is suspected Cardiology on board for surgical clearance Moderate perioperative risk for cardiovascular complications as per cardio Ortho recommended nonsurgical management Recommended weightbearing as tolerated with a walker to tolerance Continue PT/OT Fall precaution Continue pain management Follow up with orthopedic Dr. Cabrera outpatient Chronic Afib Rate controlled Continue metoprolol and Isosorbide mononitrate Heparin drip discontinued Continue coumadin, INR 2.2 today (INR goal 2 to 3 ) S/P aortic valve replacement: H/O mechanical aortic valve replacement Severe aortic 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 with an ascending aortic aneurysm status post May 2007 aortic valve replacement and ascending aorta repair with a #[address] [facility] composite graft with reimplantation of the epicardial coronary arteries, cardiac tamponade secondary to a large pericardial effusion status post emergent evacuation with redo sternotomy on 06/29/2007 Heparin drip was discontinued Continue coumadin with INR 2.2 today Coronary artery disease: Mild ASCVD by May 01, 2007 catheterization. 20-30% mid LAD stenosis, 20% diagonal stenosis, 30% LCX stenosis, and a 20-40% RCA stenosis with EF of 45% by LV gram -June 13, 2015 diagnostic cardiac catheterization at [facility] revealed mild nonobstructive coronary artery disease with normally functioning mechanical aortic valve. Specific angiography revealed an ectatic LM, 40% mid LAD lesion, 40% mid LCX stenosis, and a dominant RCA with 40% mid vessel stenosis. continue aspirin, statin, Metoprolol, Imdur Chronic diastolic heart failure: No signs of fluid overload Continue Beta shiv, Imdur resume Torsemide 20mg alternating with 40 mg daily outpatient Monitor volume status HTN (hypertension): continue metoprolol, imdur Continue Terazosin and Torsemide BP elavated Will add Hydralazine IV PRN CKD (chronic kidney disease), stage III baseline Creatinine between 1.9 to 2 Creatinine stable at 1.9 today Avoid nephrotoxic agents as able T2DM (type 2 diabetes mellitus): HbA1c 6.5 0n 06/11/19 Continue Lantus/NovoLog per protocol (History of CVA (cerebrovascular accident): History of stroke in the past with mild residual Right sided weakness Continue Aspirin, Statin Hypothyroidism: Continue Levothyroxine DVT px heparin drip discontinued On coumadin with INR 2.2 CODE STATUS FULL CODE Disposition Waiting for placement to rehab Admission and Anticipated Discharge Date Admission Date: June 10, 2019 Subjective Pt was seen and examined Lying in bed with no distress Pt said that he feels fine He said that his pain improves significantly He said that he wants to go home He does not want to go to rehab Therapy recommended inpatient rehab His niece would like him to go to rehab before returning home He said that he does not want to, but if he has too, he would rather go to [facility] Denies any chest pain, palpitation and SOB Physical Exam Physical Exam: General- No acute distress Head- bruises in R temporoparietal area junction Eyes- PERRL, EOMI, ENT- oropharynx clear Neck- supple, no JVD Lungs- clear to auscultation Heart- irregular rhythm; + murmur Abdomen- normal bowel sounds, soft, nontender Extremities- no calf tenderness, +edema Neuro- alert, oriented x 3; PERRL, EOMI; no facial palsy; no dysarthria Skin- warm & dry Results & Data ([facility]) Vital Signs (Past 12 Hours) Vital Signs Temp Pulse Pulse Resp BP Pulse Ox 06/12/19 16:01 36.7 C 78 22 184/87 H 93 06/12/19 15:21 69 06/12/19 11:20 36.7 C 76 18 118/68 93 06/12/19 07:05 36.7 C 87 18 161/91 H 93
[2019-06-12] MEDS: TERAZOSIN HCL 1 MG CAP PO SCH (20:35)
[2019-06-13] MEDS: LEVOTHYROXINE SODIUM 75 MCG TABLET PO SCH (05:05)
[2019-06-13] MEDS: OXYCODONE HCL IR 5 MG TAB (IMMEDIATE RELEASE) PO PRN (05:05)
[2019-06-13] MEDS: ATORVASTATIN 40 MG TAB PO SCH (08:08)
[2019-06-13] MEDS: ISOSORBIDE MONO EXTENDED REL 60 MG TABCR PO SCH (08:09)
[2019-06-13] MEDS: FOLIC ACID 1 MG TAB PO SCH (08:09)
[2019-06-13] MEDS: TORSEMIDE 10 MG TAB PO SCH (08:09)
[2019-06-13] MEDS: METOPROLOL SUCC 50MG EXT REL TAB PO SCH (08:09)
[2019-06-13] MEDS: ASPIRIN 81 MG ECTAB PO SCH (08:09)
[2019-06-13] MEDS: INSULIN GLARGINE SOLOSTAR 100 UNITS/ML 3 ML PEN SC SCH (08:10)
[2019-06-13] MEDS: DOCUSATE SODIUM 100 MG CAP PO SCH (08:10)
[2019-06-13] MEDS: INSULIN ASPART 100 UNITS/ML 3 ML PEN SC SCH ×2 (08:11→12:08)
[2019-06-13 08:31] LABS: INR 2.5 (0.9-1.1); Prothrombin Time 25.4 Seconds (9.0-12.0)
[2019-06-13 08:33] LABS: BUN Creatinine Ratio 17.1 (10-20); Calcium 8.7 mg/dl (8.5-10.1); Creatinine Clr Calc Pharmacy 41.8 ml/min; Est GFR (African American) 36.9; Est GFR (Non-African American) 31.8; Potassium 4.2 mmol/L (3.5-5.1)
--- NOTE | 2019-06-13 10:31 | Discharge Summary ---
Date of Service June 13, 2019 Admission HPI Per Admitting Provider History obtained from patient and records. Medical history significant for chronic diastolic heart failure (EF 60 to 65%, TTE 2018), CAD/PVD/CVA as per records, chronic left bundle branch block, A. fib/mechanical AVR on Coumadin, aortic regurgitation with ascending aortic aneurysm status post mechanical AVR and ascending aorta repair (2007), hypertension, hyperlipidemia, COPD, past tobacco abuse, DM2 insulin requiring, CRI (baseline creatinine 2), history of prostatic valve endocarditis as per records, chronic anemia baseline hemoglobin 10-11. Recent confinement December 2018 for right hip fracture secondary to fall status post surgery. Patient discharged to SNF for rehab subsequently transitioning to home. This morning, patient had a fall at home landing on the right side. Subsequent worsening of postop right hip pain. Right-sided headache from head trauma. No chest pain, S OB, syncope, LOC. Patient brought to [facility] for evaluation. CT right hip showed recent nondisplaced right femoral great trochanteric fracture. Patient transferred to [facility] for Orthopedic services. Medical History as above CT chest 09/2018 ([facility]) Spiculated nodule left upper lobe measuring 1.3 x 1.4 cm, unchanged. Advise continued follow-up in 3-6 months. 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 Admission Exam Per Admitting Provider hysical Exam: GENERAL: Comfortable, slightly hard of hearing, obese, no respiratory distress SKIN: Pallor , warm HEENT: Alopecia, ecchymosis right occipital parietal area, pale palpebral conjunctivae, no ptosis, moist buccal mucosa NECK : Supple, short neck, no tenderness CHEST : Decreased breath sounds , no tenderness HEART : Irregular, mechanical murmur ABDOMEN: Some distention, nontender EXTREMITIES : Bilateral LE swelling R> L, right hip tenderness, no other conspicuous deformities noted NEUROLOGIC : Coherent, mild hearing impairment, occasional dysarthria, right hemiparesis (chronic) Principal Diagnosis Intertrochanteric fracture of right hip Chronic Afib Discharge Exam Constitutional well nourished; no acute distress Bruise on right temporoparietal area Eyes PERRL, conjunctivae normal, anicteric sclerae ENMT external ear and nose normal, oropharynx normal Respiratory normal respiratory effort, lungs clear to auscultation Cardiovascular Rate/Rhythm: + irregularly irregular Heart Sounds: + murmur S1 S2 Gastrointestinal (Abdomen) normal bowel sounds, soft, nontender, no hepatosplenomegaly Musculoskeletal +chronic edema with stasis changes Neurologic Cranial Nerves: + hearing impairment (has hearing aide) Aox3, power is about 4/5 in RUE, 5/5 in LUE, 3/5 in RLE, 5/5 in LLE Psychiatric A+Ox3, euthymic affect Discharge Data Allergies Allergy/AdvReac Type Severity Reaction Status Date / Time No Known Allergies Allergy Unverified 01/11/19 14:22 Consultations 06/10/19 19:50 Consult Case Management - Discharge Planning Routine Consult Case Management - Discharge Planning Routine 06/10/19 21:10 Consult Orthopedic Surgery Routine 06/10/19 22:16 Consult Cardiology Routine Consult Orthopedic Surgery Routine Hospital Course (1) Intertrochanteric fracture of right hip: Was transferred from [facility] for fall that led to possible non displaced fx CT hip showed nondisplaced right femoral greater trochanteric fracture is suspected Cardiology evaluated for surgical clearance Moderate perioperative risk for cardiovascular complications as per cardio Ortho evaluated and thought Questionable nondisplaced greater trochanteric fr acture or this could possibly be chronically nonunited area of greater trochanter with previous displacement at time of original surgery. Possibly could be nondisplaced fracture. Non surgical therapy was recommended Recommended weightbearing as tolerated with a walker to tolerance Continue PT/OT Fall precaution Pain well controlled with tylenol only. Patient does not want opioids Follow up with orthopedic Dr. Cabrera outpatient (2) Chronic Afib Rate controlled Continue metoprolol and Isosorbide mononitrate Continue coumadin and INR checks (INR goal 2 to 3 ) (3) S/P aortic valve replacement: H/O mechanical aortic valve replacement Severe aortic 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 with an ascending aortic aneurysm status post May 2007 aortic valve replacement and ascending aorta repair with a #[address] [facility] [facility] composite graft with reimplantation of the epicardial coronary arteries, cardiac tamponade secondary to a large pericardial effusion status post emergent evacuation with redo sternotomy on 06/29/2007 Continue coumadin with INR checks (4) Coronary artery disease: Mild ASCVD by May 01, 2007 catheterization. 20-30% mid LAD stenosis, 20% diagonal stenosis, 30% LCX stenosis, and a 20-40% RCA stenosis with EF of 45% by LV gram -June 13, 2015 diagnostic cardiac catheterization at [facility] revealed mild nonobstructive coronary artery disease with normally functioning mechanical aortic valve. Specific angiography revealed an ectatic LM, 40% mid LAD lesion, 40% mid LCX stenosis, and a dominant RCA with 40% mid vessel stenosis. continue aspirin, statin, Metoprolol, Imdur (5) Chronic diastolic heart failure: No signs of fluid overload Continue Beta shiv, Imdur Continue Torsemide 20mg alternating with 40 mg daily outpatient (6) HTN (hypertension): continue metoprolol, imdur Continue Terazosin and Torsemide (7) CKD (chronic kidney disease), stage III baseline Creatinine between 1.9 to 2 Creatinine stable at 1.96 today Avoid nephrotoxic agents as able (8) T2DM (type 2 diabetes mellitus): HbA1c 6.5 0n 06/11/19 Continue home insulin regimen (9) History of CVA (cerebrovascular accident): History of stroke in the past with mild residual Right sided weakness Continue Aspirin, Statin (10) Hypothyroidism: Continue Levothyroxine Total Time Total Time Spent Total Time Spent (In Minutes): 40 Total Time Includes: Examination of the Patient, Discharge Planning and Medication Reconciliation Discharge Plan Discharge Items Patient Disposition: Transfer [facility] Fac Reason For Visit: R HIP FX Discharge Diagnosis: Right intertrochanteric fracture Activity: Per Instructions section Activity Comment: per physical therapist at rehab. Weight bearing as tolerated with a walker Non-emergency contact: Primary Care Provider Call non-emergency contact if: you have any medication questions Follow-up/Referrals: Alise Buck MD [Primary Care Provider] - 06/19/19 1:00 pm (You have an appoinment on June 18 at 1:00pm with your PCP in [place]. Please arrive 15 minutes early with ID and insurance information. If you can not keep this appoinment please call: [phone] ) Nasir Cabrera MD [Surgeon] - (Call for appointment) Diet: Regular, Carb Consistent or DM2 and Heart Healthy Addtl Attending Provider Instructions: Mr Bartlett. You cam to the hospital after a fall. Xrays show right femoral fracture. You were evaluated by orthopedic surgeon who recommended nonsurgical treatment You are being discharged to rehab. Please follow up with orthopedics, Dr Cabrera in the clinic. It was a pleasure taking care of you. Pending Studies at Discharge: No Stand-Alone Forms: My [facility] Skilled Items Patient informed of condition?: Yes DNR: No Discharge Level of Care: Acute rehab Communicable Disease: No Discharge Prognosis: Stable Lines: None Urinary Catheter: No Medications and DC Order Prescriptions: New acetaminophen [Mapap (acetaminophen)] 325 mg Tablet 650 mg PO Q4H PRN (Reason: pain) Qty: 50 RF: 0 Continued atorvastatin 40 mg Tablet 40 mg PO QAM RF: 0 nitroglycerin 0.4 mg Tablet, Sublingual 0.4 mg Sublingual DIRECTED PRN (Reason: Chest Pain) RF: 0 docusate sodium 100 mg Capsule 100 mg PO AMHS RF: 0 folic acid 1 mg Tablet 1 mg PO QAM RF: 0 terazosin 2 mg Capsule 2 mg PO HS RF: 0 warfarin 2.5 mg tablet 2.5 mg PO UD RF: 0 spironolactone 25 mg tablet 12.5 mg PO QAM RF: 0 levothyroxine [Synthroid] 75 mcg tablet 75 mcg PO QAM RF: 0 ferrous sulfate 325 mg (65 mg iron) Tablet 325 mg PO QPM RF: 0 isosorbide mononitrate 60 mg Tablet Extended Release 24 Hr 60 mg PO QAM Qty: 0 RF: 0 Lantus Solostar U-100 Insulin 100 unit/mL (3 mL) insulin pen 24 units SQ AMHS RF: 0 metoprolol succinate 50 mg tablet extended release 24 hr 50 mg PO QAM RF: 0 metoprolol succinate [Toprol XL] 25 mg tablet extended release 24 hr 25 mg PO HS RF: 0 insulin lispro [Humalog KwikPen Insulin] 100 unit/mL insulin pen 10 unit subcut TIDM RF: 0 aspirin [Aspir-81] 81 mg Tablet,Delayed Release (Dr/Ec) 81 mg PO QAM RF: 0 torsemide 20 mg tablet 20 - 40 mg PO DAILY RF: 0 cholecalciferol (vitamin D3) [Vitamin D3] 25 mcg (1,000 unit) Tablet 25 mcg PO DAILY RF: 0 Discharge Orders: Discharge Order (Routine); Ordered 06/13/19 Ordered By: Belkis Sorensen Admission Data Admit Date/Time: 06/10/19 18:19 Attending Provider: Belkis Sorensen I. Admit Provider: Roddy Gastelum Primary Care Provider: Alise Buck Other Providers: Jorge Gtz ; Julio Diaz ; Sabas Goldsmith ; Jade Gotti ; Elvis Paz ; aYnet Abdalla ; Yuriy Stauffer ; Zana Chicas ; Tony Thompson ; Zana Mcnair ; Lucio Casillas. ; Tony Hensley ; Andrea Ascencio ; Jose Real ; Yoan Faustin ; Nasir Cabrera ; Kevin Laboy ; Yanet Espino ; Tad Hurley ; Judson Lauren ; Yeyo Wharton ; Miki Ballard ; Heber Wu ; Radames Bautista ; Elvis Villareal ; Andrea Lantigua ; Zana Olivares ; Kinga Dowling ; Yolette Newell ; Shashank Davis ; Israel Barton ; Amee Pate Other Interventions: Discharge Summary Assessment (RN) Last Done: 06/13/19 14:53 DC Date/Time DO NOT enter until pt leaves facility: 06/13/19 15:14
--- NOTE | 2019-06-13 10:44 | Cardiology Progress Note ---
Date of Service June 13, 2019 Assessment & Plan (1) Preop cardiovascular exam: (2) Chronic atrial fibrillation: (3) S/P aortic valve replacement: (4) LBBB (left bundle branch block): (5) Intertrochanteric fracture of right hip: Conservative management of right hip recommended per orthopedic surgery. No surgical procedures are planned at this time. INR is therapeutic. Continue Coumadin for goal INR of 2.0-3.0. Continue other cardiovascular medications as previously ordered including torsemide 20 mg alternating with 40 mg daily. Cardiology will sign off. Please call with questions. Subjective Patient seen and examined the bedside. Right hip discomfort controlled. Ambulating with walker in the a.m. today. Denies orthopnea or PND. Lower extremity edema stable. No chest pain, palpitations, or unusual shortness of breath. Patient offers no complaints. Review of Systems Review of Systems: All systems reviewed & are unremarkable except as noted in HPI & below Physical Exam Constitutional: well developed and + morbidly obese; no acute distress Respiratory: normal respiratory effort, lungs clear to auscultation Auscultation: + crackles (Right base); no rales, no rhonchi and no wheezes Cardiovascular: Rate/Rhythm: + irregularly irregular Heart Sounds: normal S1, normal S2 and + murmur (2/6 systolic ejection murmur, crisp A2 click appreciated) Palpation: normal PMI Vessels: no JVD and no carotid bruit Extremities: + edema (1+ bilateral lower extremity edema with stasis changes, R > L) Gastrointestinal (Abdomen): Inspection/Auscultation: normal bowel sounds; abdomen not distended Percussion/Palpation: abdomen soft; abdomen nontender, no guarding and abdomen not rigid Skin: no rashes and no ulcers Trauma: + contusion (Right-sided temporal region) Neurologic: + does not move all extremities (Right-sided hemiparesis) Psychiatric: A+Ox3, euthymic affect Results & Data Vital Signs (Past 12 Hours) Vital Signs Temp Pulse Pulse Resp BP Pulse Ox Pulse Ox 06/13/19 07:13 36.6 C 78 18 144/80 H 91 06/13/19 07:00 77 06/13/19 04:00 91 06/13/19 03:44 36.7 C 81 20 145/85 H 91 06/13/19 00:17 79 06/13/19 00:00 92 06/12/19 23:39 36.7 C 65 18 124/73 91
[2019-06-13] MEDS ORDERED: WARFARIN SOD 5 MG TAB PO SCH (16:00)
== END 2019-06-13 15:14 | DRG 536 ==
LOC: 3N 18:19 → SUATTDRO 18:19 → 2W 20:59